=== PATIENT | male | born 1960 | race African-American/Black ===

== ENCOUNTER 2017-11-03 12:51 | Observation (INO) | payer OTHER ==
[~2017-11-03] VITALS: Ht 177.8 cm; Wt 129.3 kg
[~2017-11-03 12:51] MED LIST: LISINOPRIL10 MG PO; SERTRALINE HCL100 MG PO
[2017-11-03] MEDS ORDERED: ASPIRIN 81 MG CHEW TAB PO ONE (13:15)
[2017-11-03 13:30] LABS: BASOPHILS # (AUTO) 0.1 (0.0-0.1); BASOPHILS % 0.9 % (0.0-1.0); EOSINOPHILS # (AUTO) 0.4 (0.0-0.4); EOSINOPHILS % 6.1 % (0.0-6.0); HEMATOCRIT 43.2 % (38.2-49.6); HEMOGLOBIN 13.4 g/dL (14.0-18.0); LYMPHOCYTES # (AUTO) 2.6 (1.0-3.2); LYMPHOCYTES % 39.1 % (18.0-39.1); MEAN CORPUSCULAR VOLUME 83.7 fL (81-99); MONOCYTES # (AUTO) 0.6 (0.2-0.8); MONOCYTES % 9.2 % (4.4-11.3); NEUTROPHILS # (AUTO) 2.9 (2.1-6.9); NEUTROPHILS % 44.1 % (38.7-80.0); PLATELET COUNT 192 x10e3/uL (140-360); RED BLOOD COUNT 5.16 x10e6/uL (4.3-5.7); RED CELL DISTRIBUTION WIDTH 14.6 % (11.7-14.4)
--- NOTE | 2017-11-03 13:34 | Diagnostic Imaging Report ---
EXAMINATION: Chest, CHEST SINGLE (NOT PORTABLE) INDICATION: Chest pain COMPARISON: None FINDINGS: LINES: Left chest cardiac device with lead projecting over the expected region of the right ventricle. Heart: Normal cardiac silhouette. Vascular: The pulmonary vasculature is within normal limits. Atherosclerotic calcifications of the aortic arch. Mediastinum: No mediastinal, hilar, or axillary mass or lymphadenopathy. Lungs: No parenchymal mass. No focal consolidation. Left lung base atelectasis. Pleura: No pleural effusion. No pneumothorax. Bones: No acute osseous abnormality. Degenerative changes of the thoracic spine. Soft tissues: Normal. Impression: No acute radiographic abnormality. Signed by: Dr. Rohit Goodson M.D. on 11/03/2017 1:31 PM
[2017-11-03 13:48] LABS: ALANINE AMINOTRANSFERASE 33 IU/L (0-55); ALBUMIN 3.5 g/dL (3.5-5.0); ALBUMIN/GLOBULIN RATIO 0.8 (0.8-2.0); ALKALINE PHOSPHATASE 90 IU/L (40-150); ANION GAP 10.8 mmol/L (8-16); BLOOD UREA NITROGEN 9 mg/dL (7-26); BUN/CREATININE RATIO 9 (6-25); CALCIUM 9.1 mg/dL (8.4-10.2); CARBON DIOXIDE 35 mmol/L (22-29); CHLORIDE 98 mmol/L (98-107); CREATINE KINASE 137 IU/L (30-200); CREATININE, SERUM 1.03 mg/dL (0.72-1.25); EST GLOMERULAR FILTRATION RATE > 60 ML/MIN (60-); GLUCOSE 152 mg/dL (74-118); MAGNESIUM 1.9 MG/DL (1.3-2.1); POTASSIUM 3.8 mmol/L (3.5-5.1); SODIUM 140 mmol/L (136-145)
[2017-11-03] MEDS ORDERED: PANTOPRAZOLE SO40 MG PO (17:44)
[2017-11-03] MEDS ORDERED: FUROSEMIDE40 MG PO (17:44)
[2017-11-03] MEDS ORDERED: CHANTIX0.5 MG PO (17:44)
[2017-11-03] MEDS ORDERED: CLONIDINE HCL0.1 MG PO (17:44)
[2017-11-03] MEDS ORDERED: SENNA LAX8.6 MG PO (17:44)
[2017-11-03] MEDS ORDERED: ULTRAM 50MG50 MG PO (17:44)
[2017-11-03] MEDS ORDERED: ASPIRIN 81 MG CHEW TAB ONE (18:53)
[2017-11-03] MEDS ORDERED: ATORVASTATIN CA10 MG PO (19:02)
[2017-11-03] MEDS ORDERED: ASPIR 8181 MG (19:02)
[2017-11-03] MEDS ORDERED: MAGNESIUM OXID400 MG PO (19:02)
[2017-11-03] MEDS ORDERED: ENTRESTO PO (19:02)
[2017-11-03] MEDS ORDERED: BISACODYL5 MG PO (19:02)
[2017-11-03] MEDS ORDERED: NITRO-BID1 GM TD (19:02)
[2017-11-03] MEDS ORDERED: CARVEDILOL3.125 MG PO (19:02)
[2017-11-03] MEDS ORDERED: ELIQUIS PO (19:02)
[2017-11-03] MEDS ORDERED: ONDANSETRON HCL INJ 2 MG/ML VIAL IV PRN (19:15)
[2017-11-03] MEDS ORDERED: SODIUM CHLORIDE FLUSH 10 ML SYR INJ PRN (19:15)
[2017-11-03] MEDS ORDERED: CLONIDINE HCL 0.1 MG TAB PO PRN (19:15)
[2017-11-03] MEDS ORDERED: TRAMADOL HCL 50 MG TAB PO PRN (19:15)
[2017-11-03] MEDS: MORPHINE SULFATE 2 MG/ML SYR IV PRN (19:45)
[2017-11-03] MEDS ORDERED: VARENICLINE 1 MG TAB PO PRN (19:45)
[2017-11-03] MEDS: FAMOTIDINE 20 MG/2 ML VIAL IV SCH (19:45)
[2017-11-03] MEDS: SERTRALINE HCL 100 MG TAB PO SCH (21:55)
[2017-11-03] MEDS: ATORVASTATIN 10 MG TAB PO SCH (21:55)
[2017-11-03 23:33] LABS: CREATINE KINASE MB 0.8 ng/mL (0.00-5.00)
[2017-11-04] VITALS (7 sets, daily range): BP systolic 96–121; BP diastolic 67–94
[2017-11-04] MEDS: FAMOTIDINE 20 MG/2 ML VIAL IV SCH ×2 (08:30→21:31)
[2017-11-04 08:35] LABS: BASOPHILS # (AUTO) 0.1 (0.0-0.1); BASOPHILS % 1.3 % (0.0-1.0); EOSINOPHILS # (AUTO) 0.3 (0.0-0.4); EOSINOPHILS % 4.7 % (0.0-6.0); HEMATOCRIT 39.4 % (38.2-49.6); LYMPHOCYTES # (AUTO) 2.9 (1.0-3.2); LYMPHOCYTES % 40.9 % (18.0-39.1); MEAN CORPUSCULAR HEMOGLOBIN 25.9 pg (28-32); MEAN CORPUSCULAR HGB CONC 30.5 g/dL (31-35); MEAN CORPUSCULAR VOLUME 84.9 fL (81-99); MONOCYTES # (AUTO) 0.8 (0.2-0.8); MONOCYTES % 11.1 % (4.4-11.3); NEUTROPHILS # (AUTO) 2.9 (2.1-6.9); NEUTROPHILS % 40.5 % (38.7-80.0); PLATELET COUNT 153 x10e3/uL (140-360); RED BLOOD COUNT 4.64 x10e6/uL (4.3-5.7); RED CELL DISTRIBUTION WIDTH 14.7 % (11.7-14.4)
[2017-11-04] MEDS: ASPIRIN 81 MG ENTERIC COATED PO SCH (08:50)
[2017-11-04 09:02] LABS: ALANINE AMINOTRANSFERASE 30 IU/L (0-55); ALBUMIN 3.2 g/dL (3.5-5.0); ALBUMIN/GLOBULIN RATIO 0.9 (0.8-2.0); ALKALINE PHOSPHATASE 73 IU/L (40-150); ANION GAP 10.8 mmol/L (8-16); BLOOD UREA NITROGEN 11 mg/dL (7-26); BUN/CREATININE RATIO 10 (6-25); CARBON DIOXIDE 36 mmol/L (22-29); CHLORIDE 97 mmol/L (98-107); CHOL/HDL RATIO 3.4 (3.9-4.7); CHOLESTEROL 141 MD/DL (0-199); CREATININE, SERUM 1.09 mg/dL (0.72-1.25); EST GLOMERULAR FILTRATION RATE > 60 ML/MIN (60-); GLUCOSE 105 mg/dL (74-118); HDL CHOLESTEROL 42 MG/DL (40-60); LDL CHOLESTEROL 76 MG/DL (60-130); POTASSIUM 3.8 mmol/L (3.5-5.1); SODIUM 140 mmol/L (136-145); TRIGLYCERIDES 116 MG/DL (0-149)
[2017-11-04] MEDS: BISACODYL 5 MG TAB EC PO SCH (09:10)
[2017-11-04] MEDS: SENNOSIDES 8.6 MG TAB PO SCH (09:10)
[2017-11-04] MEDS: CARVEDILOL 3.125 MG TAB PO SCH ×2 (09:10→17:00)
[2017-11-04] MEDS: MAGNESIUM OXIDE 400 MG TAB PO SCH (09:10)
[2017-11-04] MEDS: APIXABAN 5 MG TABLET PO SCH ×2 (09:10→17:05)
[2017-11-04] MEDS: FUROSEMIDE 40 MG TAB PO SCH ×2 (09:10→17:15)
[2017-11-04] MEDS: LISINOPRIL 10 MG TAB PO SCH ×2 (09:10→17:00)
[2017-11-04] MEDS: NITROGLYCERIN 2% OINT 1 GM PKT TOP SCH ×3 (12:00→17:29)
[2017-11-04] MEDS: ATORVASTATIN 10 MG TAB PO SCH (21:31)
[2017-11-04] MEDS: SERTRALINE HCL 100 MG TAB PO SCH (21:31)
[2017-11-05] VITALS (7 sets, daily range): BP systolic 92–142; BP diastolic 55–86
--- NOTE | 2017-11-05 03:56 | History and Physical ---
PRIMARY CARE PHYSICIAN: Dr. 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 CHIEF COMPLAINT: Chest pain. HISTORY OF PRESENT ILLNESS: This is a 56-year-old man with a history of systolic congestive heart failure, status post AICD placement in September 2017, now developing substernal chest pain described as sharp and shooting to the left with associated dizziness. No shortness of breath. No nausea or vomiting. He admitted for further evaluation and management. PAST MEDICAL HISTORY: Diabetes mellitus, type 2, hypertension, bilateral upper extremity DVT in August 2017, and started on Eliquis, systolic congestive heart failure, status post AICD placement in September 2017. PAST SURGICAL HISTORY: Back surgery, cholecystectomy, AICD placement. ALLERGIES: PER ELECTRONIC MEDICAL RECORDS. FAMILY HISTORY/SOCIAL HISTORY: Patient is . No children. No alcohol, illicits or cigarettes. MEDICATIONS: Per electronic medical records. REVIEW OF SYSTEMS: Denies any shortness of breath. PHYSICAL EXAMINATION VITAL SIGNS: Have been reviewed. GENERAL: A tired-appearing man resting in bed. HEENT: Anicteric. CARDIOVASCULAR: Normal S1 and S2. He has a left-sided chest palpable cardiac device subcutaneously. LUNGS: Moderate breath sounds. ABDOMEN: Soft, nontender and nondistended. EXTREMITIES: No edema tenderness. SKIN: Dry. PSYCHIATRIC: Normal affect. LABS: Reviewed. MEDICATIONS: Reviewed. ASSESSMENT AND PLAN: A 56-year-old man with: 1. Chest pain: Cardiac enzymes negative times 3. His LDL is 76. His triglycerides are 116. His heart catheterization was in August 2017, which he states was negative. We can obtain a 2-D echocardiogram here, although the patient has recently had that as well, and had an automatic implanted cardioverter defibrillator placed in September 2017. Plan would be for him to follow up with his mechanical apprentice outpatient. In the meantime, will treat him medically with Lipitor, lisinopril, carvedilol, aspirin. His blood pressure is currently well controlled. Could this be a pulmonary embolism? Patient is on Eliquis, but he is complaining of sharp chest discomfort. Will obtain a D-dimer and determine if a computerized tomography scan is needed after that. 2. Diabetes mellitus, type 2: Obtain hemoglobin A1c and lipid panel. 3. Obesity: Caloric restriction needed. His body mass index is 39.3. 4. Hypertension: Continue beta mauricio and other medications. 5. Bilateral upper extremity deep venous thrombosis: Will continue apixaban. 6. Gastroesophageal reflux disease: Continue Pepcid. 7. Hypertension: Continue clonidine, carvedilol and lisinopril. 8. Hyperlipidemia: Continue Lipitor. 9. Constipation: Continue bowel regimen. 10. Cigarette abuse history: Continue Chantix. 11. Prophylaxis: Will use Lovenox and continue Pepcid. 12. Disposition: Monitor by telemetry. Possible discharge later today versus tomorrow. He needs to follow up with his mechanical apprentice outpatient for further management. He had a recent echocardiogram in late fall of 2016. Job#: [id number] ODIN
[2017-11-05] MEDS: NITROGLYCERIN 2% OINT 1 GM PKT TOP SCH ×4 (06:13→18:11)
[2017-11-05] MEDS: FAMOTIDINE 20 MG/2 ML VIAL IV SCH ×2 (07:55→20:33)
--- NOTE | 2017-11-05 08:20 | Consultation ---
DATE OF CONSULTATION: REQUESTING PHYSICIAN: Dr. Douglas REASON FOR CONSULTATION: Chest pain. HISTORY OF PRESENT ILLNESS: Mr. Tatum is a 56-year-old gentleman with past medical history as listed below. He reportedly started developing chest pain a couple of weeks back. Patient states the chest pain was constant all across his chest, nonradiating. He does get short of breath both at rest and with minimal exertion. He has a history of congestive heart failure and underwent an ICD placement a few weeks back at [facility]. He states he feels better today. REVIEW OF SYSTEMS CONSTITUTIONAL: Has some fatigue and weakness. HEENT: No headache, blurring of vision, seizures, syncope. CARDIOVASCULAR: Had chest pain. Has dyspnea. Has leg edema. No orthopnea or PND. RESPIRATORY: No cough, fever or expectoration. GI: No abdominal pain, vomiting, diarrhea. : No dysuria, frequency, incontinence. ALLERGIES: NO KNOWN DRUG ALLERGIES. MEDICATIONS: See list. PAST MEDICAL HISTORY 1. History of CHF/cardiomyopathy. 2. History of ICD placement. 3. History of hypertension. 4. History of diabetes mellitus. 5. History of hyperlipidemia. 6. History of DVT of both upper extremities. 7. History of having had a cardiac catheterization at [facility] and was told that he had no blockages. SOCIAL HISTORY: Does not smoke or drink or use drugs. FAMILY HISTORY: History of hypertension. PHYSICAL EXAMINATION GENERAL: Obese gentleman, alert and oriented, not in any obvious distress. VITALS: Heart rate is 78. Blood pressure 107/78. Respiratory rate 18. HEENT: Atraumatic. NECK: No JVD, bruit, thyromegaly, lymphadenopathy. CHEST: Decreased air entry at the bases. No adventitious sounds appreciated. ICD generator, left upper chest. CARDIOVASCULAR: First and second heart sounds heard. No murmurs, rubs or gallops appreciated. ABDOMEN: Obese, nontender. EXTREMITIES: 1 to 2+ edema. LABORATORY DATA: Sodium is 140, potassium 3.8, chloride 97, bicarb 36. BUN is 11 and creatinine 1.0. Glucose 105. Hemoglobin is 12.0, hematocrit 39.4, platelets 153, white count 7.1. EKG shows sinus rhythm at 82 beats per minute, rightward axis, intraventricular conduction delay, nonspecific ST-T changes. IMPRESSION 1. Chest pain. 2. Congestive heart failure. 3. History of deep venous thrombosis of upper extremities. 4. History of hypertension. 5. Obesity. 6. History of implantable cardioverter-defibrillator placement. PLAN 1. Follow serial cardiac enzymes. 2. Get records from [facility]. 3. Continue with aspirin, beta blockers, SAVANNA inhibitors, diuretics. 4. Patient is also on apixaban for his DVT. Can continue the same. 5. Plan to get echocardiogram. 6. Patient has been counseled on diet and salt restriction. 7. Further cardiac workup depending on clinical course. I discussed my impression and plan of management with the patient, and he understands. As always, I appreciate and thank you very much for your referrals. Job#: [id number] KACI
[2017-11-05] MEDS: CARVEDILOL 3.125 MG TAB PO SCH ×2 (09:00→17:48)
[2017-11-05] MEDS: LISINOPRIL 10 MG TAB PO SCH ×2 (09:00→17:48)
[2017-11-05] MEDS: ASPIRIN 81 MG ENTERIC COATED PO SCH (09:48)
[2017-11-05] MEDS: MAGNESIUM OXIDE 400 MG TAB PO SCH (09:49)
[2017-11-05] MEDS: SENNOSIDES 8.6 MG TAB PO SCH (09:49)
[2017-11-05] MEDS: FUROSEMIDE 40 MG TAB PO SCH ×2 (09:49→17:48)
[2017-11-05] MEDS: BISACODYL 5 MG TAB EC PO SCH (09:49)
[2017-11-05] MEDS: APIXABAN 5 MG TABLET PO SCH ×2 (09:49→17:48)
[2017-11-05] MEDS: ATORVASTATIN 10 MG TAB PO SCH (20:33)
[2017-11-05] MEDS: SERTRALINE HCL 100 MG TAB PO SCH (20:33)
[2017-11-05] MEDS: MORPHINE SULFATE 2 MG/ML SYR IV PRN (20:35)
[2017-11-06 00:19] VITALS: BP 111/64
[2017-11-06 05:47] VITALS: BP 149/75
[2017-11-06] MEDS: FAMOTIDINE 20 MG/2 ML VIAL IV SCH (06:33)
[2017-11-06] MEDS: NITROGLYCERIN 2% OINT 1 GM PKT TOP SCH ×3 (06:33→13:00)
[2017-11-06 06:49] LABS: BASOPHILS # (AUTO) 0.1 (0.0-0.1); BASOPHILS % 0.9 % (0.0-1.0); EOSINOPHILS # (AUTO) 0.3 (0.0-0.4); EOSINOPHILS % 4.5 % (0.0-6.0); HEMATOCRIT 38.4 % (38.2-49.6); HEMOGLOBIN 11.6 g/dL (14.0-18.0); LYMPHOCYTES % 43.8 % (18.0-39.1); MEAN CORPUSCULAR HEMOGLOBIN 25.7 pg (28-32); MEAN CORPUSCULAR HGB CONC 30.2 g/dL (31-35); MONOCYTES # (AUTO) 0.6 (0.2-0.8); MONOCYTES % 9.5 % (4.4-11.3); NEUTROPHILS # (AUTO) 2.8 (2.1-6.9); NEUTROPHILS % 40.9 % (38.7-80.0); PLATELET COUNT 124 x10e3/uL (140-360); RED BLOOD COUNT 4.52 x10e6/uL (4.3-5.7); RED CELL DISTRIBUTION WIDTH 14.5 % (11.7-14.4)
[2017-11-06 07:18] LABS: ANION GAP 11.8 mmol/L (8-16); BLOOD UREA NITROGEN 12 mg/dL (7-26); BUN/CREATININE RATIO 11 (6-25); CALCIUM 8.9 mg/dL (8.4-10.2); CARBON DIOXIDE 35 mmol/L (22-29); CHLORIDE 98 mmol/L (98-107); CREATININE, SERUM 1.12 mg/dL (0.72-1.25); EST GLOMERULAR FILTRATION RATE > 60 ML/MIN (60-); GLUCOSE 95 mg/dL (74-118); POTASSIUM 3.8 mmol/L (3.5-5.1); SODIUM 141 mmol/L (136-145)
[2017-11-06] MEDS: SENNOSIDES 8.6 MG TAB PO SCH (09:39)
[2017-11-06] MEDS: BISACODYL 5 MG TAB EC PO SCH (09:39)
[2017-11-06] MEDS: CARVEDILOL 3.125 MG TAB PO SCH ×2 (09:39→17:24)
[2017-11-06] MEDS: FUROSEMIDE 40 MG TAB PO SCH ×2 (09:39→17:24)
[2017-11-06] MEDS: MAGNESIUM OXIDE 400 MG TAB PO SCH (09:39)
[2017-11-06] MEDS: APIXABAN 5 MG TABLET PO SCH ×2 (09:39→17:24)
[2017-11-06] MEDS: LISINOPRIL 10 MG TAB PO SCH ×2 (09:39→17:25)
[2017-11-06] MEDS: ASPIRIN 81 MG ENTERIC COATED PO SCH (09:39)
[2017-11-06 14:29] VITALS: BP 159/97
--- NOTE | 2017-11-06 14:46 | Diagnostic Imaging Report ---
Ventilation/perfusion lung scan Clinical Information: SOB x 2 months Comparison: Chest radiograph 11/03/2017 Discussion: Xenon-133 gas 20 mCi was administered via inhalation. Dynamic images of the lungs in the posterior projection were obtained through single breath, equilibrium, and washout phases. A nonsegmental ventilation abnormality is seen in the LLL. There are no segmental ventilatory defects. Washout of tracer is diffusely delayed with air trapping in the left lung base. Perfusion images of the lungs were obtained in multiple projections following intravenous administration of approximately 6 mCi of Tc-99m MAA. A nonsegmental perfusion abnormality is seen in the LLL. Distribution of tracer activity otherwise is minimally irregular throughout the lungs. The contours of the lungs are well demarcated. There are no segmental perfusion defects of any size. The perfusion image in the posterior projection is well-matched to the ventilation images. The cardiomediastinal silhouette is unremarkable. Impression: 1. Scan findings represent a LOW probability for acute pulmonary embolic disease based on the PIOPED II criteria. 2. Large matched nonsegmental ventilation and perfusion abnormality in the left lower lobe suspect for parenchymal lung disease versus regional emphysema. CT chest may be warranted. Signed by: Dr. Piedad Cage M.D. on 11/06/2017 2:42 PM
[2017-11-06 15:52] VITALS: BP 142/81
--- NOTE | 2017-11-07 12:11 | Discharge Summary ---
ADMISSION DIAGNOSES 1. Chest pain. 2. Diabetes, type 2. 3. Obesity. 4. Hypertension. 5. Bilateral upper extremity deep venous thrombosis history. 6. Gastroesophageal reflux disease. 7. Hypertension. 8. Hyperlipidemia. 9. Constipation. 10. Cigarette abuse history. DISCHARGE DIAGNOSES 1. Chest pain. 2. Diabetes, type 2. 3. Obesity. 4. Hypertension. 5. Bilateral upper extremity deep venous thrombosis history. 6. Gastroesophageal reflux disease. 7. Hypertension. 8. Hyperlipidemia. 9. Constipation. 10. Cigarette abuse history. 11. Ruled out pulmonary embolism and myocardial infarction. HISTORY: Patient has a history of type 2 diabetes, hypertension, bilateral upper extremity DVT in August of 2017 when he was started on Eliquis, systolic heart failure, status post AICD placement in September 2017. Surgical history of back surgery, cholecystectomy, AICD placement. HOSPITAL COURSE: A 56-year-old male presented with history of CHF, status post AICD placement in September, now developing substernal chest pain described as sharp and shooting to the left with associated dizziness. He denies shortness of breath, nausea and vomiting. On admission, his enzymes were negative times 3. LDL 76, triglycerides 116. Heart cath in August 2017, which he states was negative. Echo was found to have an EF of 25% to 30%, severe left ventricular hypertrophy, and trace pulmonic regurg. Cardiology consulted who recommended to continue aspirin, beta blockers, SAVANNA inhibitors, diuretics, and anticoags for DVT. Patient counseled on diet and salt restriction. D-dimer was found to be elevated. V/Q scan was done, which was negative per cardiology. Per cardiology, the patient is okay to discharge home with no interventions needed. At the time of discharge, sodium 141, potassium 3.8, creatinine 1.12, BUN 12, GFR of over 60. Last troponin of 0.046. WBC 6.73, hemoglobin 11.6, hematocrit 38.4. Chest x-ray on admission showed no abnormality. Patient will discharge home and follow up with cardiology in 1-2 weeks. Patient already has 4 L of oxygen at home, and lives at home with his . Patient will continue on his current home medicines. DICTATED BY LEIDY BEDOLLA, JACKHAMMER SPLITTER OPERATOR GENARO AMADO MD Job#: [id number] [place]
== END 2017-11-06 18:21 | disposition home or self-care (01) ==
LOC: ER 12:51 → ERHOLD 20:46 → MED/SURG3 23:07
PROVIDERS: ADMIT Internal Medicine; ATTEND Internal Medicine
DX: R07.9 Chest pain, unspecified (principal); E11.9 Type 2 diabetes mellitus without complications; Z86.718 Personal history of other venous thrombosis and embolism; Z79.01 Long term (current) use of anticoagulants; I11.0 Hypertensive heart disease with heart failure; I50.20 Unspecified systolic (congestive) heart failure; Z95.810 Presence of automatic (implantable) cardiac defibrillator; E66.9 Obesity, unspecified; K21.9 Gastro-esophageal reflux disease without esophagitis; E78.5 Hyperlipidemia, unspecified; K59.00 Constipation, unspecified; Z87.891 Personal history of nicotine dependence
CPT/HCPCS: 36415 ×4; 71010; 78582; 80048; 80053 ×2; 80061; 82550 ×2; 82553 ×2; 82948 ×3; 83036; 83735; 83880; 84484 ×3; 85025 ×3; 85379; 93005 ×2; 93306; 99284; A9540; A9558; G0378 ×4; J2270 ×2; J2405; 71045

== ENCOUNTER 2018-02-03 05:37 | Emergency (ER) | payer OTHER ==
[~2018-02-03] VITALS: Ht 177.8 cm; Wt 129.3 kg
[~2018-02-03 05:37] MED LIST changes: +ASPIR 8181 MG; +ATORVASTATIN CA10 MG PO; +BISACODYL5 MG PO; +CARVEDILOL3.125 MG PO; +CHANTIX0.5 MG PO; +CLONIDINE HCL0.1 MG PO; +ELIQUIS PO; +ENTRESTO PO; +FUROSEMIDE40 MG PO; +MAGNESIUM OXID400 MG PO; +NITRO-BID1 GM TD; +PANTOPRAZOLE SO40 MG PO; +SENNA LAX8.6 MG PO; +ULTRAM 50MG50 MG PO
--- OUTSIDE RECORDS SUMMARY | 2018-02-03 05:41 | XMS REPORT | Clinical Summary ---
Author Author [facility] [employer] [facility] [employer] Address Unknown Phone Unavailable Care Team Providers Care Supervisor [facility] [employer] Name Role Phone Cristino Bryant DO PCP Allergies No Known Allergies Current Medications Prescription Sig. Disp. Refills Start End Date Status Date aspirin (ECOTRIN) 81 MG Take 81 mg by mouth Active enteric coated tablet daily. atorvastatin (LIPITOR) 10 Take 10 mg by mouth Active MG tablet nightly. escitalopram (LEXAPRO) 10 Take 10 mg by mouth 2 Active MG tablet (two) times a day. QUEtiapine (SEROquel) 25 Take 25 mg by mouth Active MG tablet nightly. risperiDONE (RisperDAL) 1 Take 1 mg by mouth 2 Active MG tablet (two) times a day. varenicline (CHANTIX) 0.5 Take 0.5 mg by mouth Active MG tablet daily. Take with full glass of water. HYDROcodone-acetaminophen Take 1 tablet by mouth Active (NORCO) 10-325 mg per every 6 (six) hours as tablet needed for moderate pain. apixaban (ELIQUIS) 5 mg Take 5 mg by mouth 2 Active tablet (two) times a day. furosemide (LASIX) 40 mg Take 1 tablet (40 mg 60 tablet 10/19/20 10/19/20 Active tablet total) by mouth 2 (two) 17 18 times a day. magnesium oxide (MAG-OX) Take 1 tablet (400 mg 30 tablet 10/19/20 10/19/20 Active 400 mg tablet total) by mouth daily. 17 18 aspirin (ECOTRIN) 81 MG Take 81 mg by mouth 07/31/20 Discontin enteric coated tablet daily. 17 ued escitalopram (LEXAPRO) 10 Take 10 mg by mouth 2 07/31/20 Discontin MG tablet (two) times a day. 17 ued risperiDONE (RisperDAL) 1 Take 1 mg by mouth 2 07/31/20 Discontin MG tablet (two) times a day. 17 ued clonAZEPAM (KlonoPIN) 0.5 Take 0.5 mg by mouth 2 03/10/20 Discontin MG tablet (two) times a day. 17 ued isosorbide dinitrate Take 40 mg by mouth 3 05/07/20 Discontin (ISOCHRON) 40 mg CR (three) times a day. 17 ued tablet dextran 70-hypromellose Administer 2 drops to 1 mL 0 01/25/20 (ARTIFICIAL TEARS) both eyes 4 (four) times 17 17 0.1-0.3 % drops a day for 30 days. lisinopril (ZESTRIL) 2.5 Take 1 tablet (2.5 mg 30 tablet 0 01/25/20 02/24/20 mg tablet total) by mouth daily for 17 17 30 days. atorvastatin (LIPITOR) 10 Take 1 tablet (10 mg 30 tablet 0 01/25/20 02/24/20 MG tablet total) by mouth daily for 17 17 30 days. metoprolol succinate XL Take 0.5 tablets (12.5 mg 15 tablet 0 02/24/20 (TOPROL-XL) 25 mg 24 hr total) by mouth daily for 17 17 tablet 30 days. spironolactone Take 1 tablet (25 mg 30 tablet 0 01/25/20 02/24/20 (ALDACTONE) 25 MG tablet total) by mouth daily for 17 17 30 days. nitroglycerin (NITRODUR) Place 1 patch on the skin 04/15/20 Discontin 0.1 mg/hr daily. 17 ued furosemide (LASIX) 40 mg Take 1 tablet (40 mg 30 tablet 0 02/02/20 03/03/20 tablet total) by mouth daily for 17 17 30 days. hydrALAZINE (APRESOLINE) Take 1 tablet (50 mg 90 tablet 0 02/02/20 03/03/20 50 MG tablet total) by mouth every 8 17 17 (eight) hours for 30 days. potassium chloride Take 2 capsules (20 mEq 60 capsule 0 02/02/2004/17 (MICRO-K) 10 MEQ CR total) by mouth daily for 17 17 capsule 30 days. predniSONE (DELTASONE) 20 Take 1 tablet (20 mg 14 tablet 0 02/02/20 02/16/20 mg tablet total) by mouth daily for 17 17 14 days. QUEtiapine (SEROquel) 200 Take 0.5 tablets (100 mg 15 tablet 0 03/03/20 MG tablet total) by mouth nightly 17 17 for 30 days. gabapentin (NEURONTIN) Take 1 capsule (300 mg 90 capsule 2 02/02/20 03/03/20 300 mg capsule total) by mouth 3 (three) 17 17 times a day for 30 days. clonIDINE (CATAPRES) 0.1 Take 0.1 mg by mouth as 04/15/20 Discontin MG tablet needed for high blood 17 ued pressure. carvedilol (COREG) 12.5 Take 12.5 mg by mouth 2 07/21/20 Discontin MG tablet (two) times a day with 17 ued meals. furosemide (LASIX) 40 mg Take 40 mg by mouth 03/10/20 Discontin tablet daily. 17 ued potassium chloride Take 10 mEq by mouth 07/31/20 Discontin (K-DUR,KLOR-CON) 10 MEQ daily. 17 ued CR tablet QUEtiapine (SEROquel) 100 Take 100 mg by mouth 03/10/20 Discontin MG tablet nightly. 17 ued hydrALAZINE (APRESOLINE) Take 50 mg by mouth 3 03/10/20 Discontin 50 MG tablet (three) times a day. 17 ued atorvastatin (LIPITOR) 10 Take 10 mg by mouth 07/31/20 Discontin MG tablet daily. 17 ued gabapentin (NEURONTIN) Take 600 mg by mouth 3 03/10/20 Discontin 600 mg tablet (three) times a day. 17 ued spironolactone Take 25 mg by mouth 05/07/20 Discontin (ALDACTONE) 25 MG tablet daily. 17 ued glimepiride (AMARYL) 1 MG Take 1 tablet (1 mg 30 tablet 0 03/10/20 04/09/20 tablet total) by mouth daily 17 17 with breakfast for 30 days. hydrALAZINE (APRESOLINE) Take 3 tablets (75 mg 270 tablet 0 03/10/20 04/09/20 25 MG tablet total) by mouth 3 (three) 17 17 times a day for 30 days. QUEtiapine (SEROquel) 25 Take 1 tablet (25 mg 30 tablet 0 03/10/20 04/09/20 MG tablet total) by mouth nightly 17 17 for 30 days. furosemide (LASIX) 40 mg Take 1 tablet (40 mg 60 tablet 0 03/10/20 04/09/20 tablet total) by mouth 2 (two) 17 17 times a day for 30 days. cephalexin (KEFLEX) 500 Take 500 mg by mouth 4 04/11/20 04/21/20 MG capsule (four) times a day. 17 17 varenicline (CHANTIX) 0.5 Take 0.5 mg by mouth 07/31/20 Discontin MG tablet daily. Take with full 17 ued glass of water. QUEtiapine (SEROquel) 25 Take 25 mg by mouth 07/31/20 Discontin MG tablet nightly. 17 ued clonIDINE (CATAPRES) 0.1 Take 1 tablet (0.1 mg 30 tablet 0 04/17/20 05/17/20 MG tablet total) by mouth as needed 17 17 for high blood pressure (if BP >160/) for up to 30 days. hydrALAZINE (APRESOLINE) Take 1 tablet (50 mg 90 tablet 0 04/17/20 05/07/20 Discontin 50 MG tablet total) by mouth every 8 17 17 ued (eight) hours for 30 days. nitroglycerin (NITRODUR) Place 1 patch (0.1 mg 30 patch 0 04/17/20 05/17/20 0.1 mg/hr total) on the skin daily 17 17 for 30 days. B complex-vitamin C-folic Take 1 tablet by mouth 30 tablet 0 04/17/20 05/17/20 acid (FOLBEE PLUS 5 MG) 5 daily for 30 days. 17 17 mg tablet per tablet hydrALAZINE (APRESOLINE) Take 3 tablets (75 mg 270 tablet 0 05/07/20 06/06/20 25 MG tablet total) by mouth every 8 17 17 (eight) hours for 30 days. spironolactone Take 1 tablet (25 mg 30 tablet 0 05/07/20 06/06/20 (ALDACTONE) 25 MG tablet total) by mouth daily for 17 17 30 days. isosorbide dinitrate Take 1 tablet (40 mg 90 tablet 0 05/07/2006/06 (ISOCHRON) 40 mg CR total) by mouth 3 (three) 17 17 tablet times a day for 30 days. furosemide (LASIX) 40 mg Take 1 tablet (40 mg 19 tablet 0 05/09/20 05/28/20 tablet total) by mouth daily for 17 17 19 days. CONTINUE UNTIL YOU SEE DR. NAVA IN THE OFFICE NEXT WEEK carvedilol (COREG) 6.25 Take 1 tablet (6.25 mg 60 tablet 0 07/20/20 07/31/20 Discontin MG tablet total) by mouth 2 (two) 17 17 ued times a day for 30 days. furosemide (LASIX) 40 mg Take 1 tablet (40 mg 30 tablet 0 07/20/20 07/31/20 Discontin tablet total) by mouth daily for 17 17 ued 30 days. acetaminophen-codeine Take 1 tablet by mouth 20 tablet 0 07/20/20 Discontin (TYLENOL WITH CODEINE #3) every 6 (six) hours as 17 17 ued 300-30 mg per tablet needed for moderate pain for up to 10 days. apixaban (ELIQUIS) 2.5 mg Take 1 tablet (2.5 mg 60 tablet 0 07/21/20 07/31/20 Discontin tablet total) by mouth 2 (two) 17 17 ued times a day for 30 days. apixaban (ELIQUIS) 2.5 mg Take 1 tablet (2.5 mg 60 tablet 0 07/21/20 07/31/20 Discontin tablet total) by mouth 2 (two) 17 17 ued times a day for 30 days. carvedilol (COREG) 6.25 Take 6.25 mg by mouth 2 09/05/20 Discontin MG tablet (two) times a day with 17 ued meals. furosemide (LASIX) 40 mg Take 40 mg by mouth 09/05/20 Discontin tablet daily. 17 ued potassium chloride Take 10 mEq by mouth 08/09/20 Discontin (MICRO-K) 10 MEQ CR daily. 17 ued capsule glimepiride (AMARYL) 1 MG Take 1 tablet (1 mg 30 tablet 0 08/09/20 09/08/20 tablet total) by mouth daily 17 with breakfast for 30 days. hydrALAZINE (APRESOLINE) Take 1 tablet (25 mg 90 tablet 0 08/09/20 09/05/20 Discontin 25 MG tablet total) by mouth every 8 17 ued (eight) hours for 30 days. potassium chloride Take 2 capsules (20 mEq 120 capsule 0 08/09/20 Discontin (MICRO-K) 10 MEQ CR total) by mouth 2 (two) 17 ued capsule times a day for 30 days. pantoprazole (PROTONIX) Take 1 tablet (40 mg 30 tablet 0 08/09/20 40 MG EC tablet total) by mouth daily for 17 30 days. carvedilol (COREG) 12.5 Take 1 tablet (12.5 mg 60 tablet 0 09/05/20 10/15/20 Discontin MG tablet total) by mouth 2 (two) 17 17 ued times a day with meals for 30 days. sacubitril-valsartan Take 1 tablet by mouth 2 60 tablet 0 09/05/20 10/15/20 Discontin (ENTRESTO) 24-26 mg (two) times a day for 30 17 17 ued tablet per tablet days. hydrALAZINE (APRESOLINE) Take 3 tablets (75 mg 270 tablet 0 09/05/20 10/15/20 Discontin 25 MG tablet total) by mouth every 8 ued (eight) hours for 30 days. furosemide (LASIX) 40 mg Take 1 tablet (40 mg 60 tablet 0 09/05/20 10/15/20 Discontin tablet total) by mouth 2 (two) 17 ued times a day for 30 days. potassium chloride Take 3 capsules (30 mEq 180 capsule 0 09/05/20 Discontin (MICRO-K) 10 MEQ CR total) by mouth 2 (two) 17 ued capsule times a day for 30 days. carvedilol (COREG) 6.25 Take 1 tablet (6.25 mg 60 tablet 3 10/15/20 11/14/19 MG tablet total) by mouth 2 (two) 17 18 times a day with meals for 30 days. traMADol (ULTRAM) 50 mg Take 1 tablet (50 mg 60 tablet 0 10/15/20 tablet total) by mouth every 6 17 18 (six) hours as needed for severe pain for up to 60 doses. sacubitril-valsartan Take 1 tablet by mouth 2 60 tablet 0 10/15/20 10/19/20 Discontin (ENTRESTO) 24-26 mg (two) times a day for 30 17 17 ued tablet per tablet days. hydrALAZINE (APRESOLINE) Take 3 tablets (75 mg 270 tablet 0 10/15/20 11/14/19 25 MG tablet total) by mouth every 8 17 18 (eight) hours for 30 days. insulin GLARGINE (LANTUS) Inject 14 Units under the 4.2 mL 0 10/16/20 11/15/19 100 unit/mL injection skin daily before (vial) breakfast for 30 days. bisacodyl (DULCOLAX) 5 mg Take 2 tablets (10 mg 30 tablet 0 10/15/20 11/14/19 EC tablet total) by mouth daily as 17 18 needed for constipation for up to 30 days. polyethylene glycol Take 17 g by mouth daily 30 packet 0 10/15/20 (MIRALAX) 17 gram packet for 30 days. 17 18 senna (SENOKOT) 8.6 mg Take 1 tablet by mouth 30 tablet 0 10/16/20 11/15/19 tablet daily for 30 days. 17 18 pantoprazole (PROTONIX) Take 1 tablet (40 mg 30 tablet 0 10/16/20 40 MG EC tablet total) by mouth daily for 17 18 30 days. lidocaine (LIDODERM) 5 % Place 1 patch on the skin 30 patch 0 11/14/19 daily for 30 days. Remove 17 18 & Discard patch within 12 hours or as directed by sacubitril-valsartan Take 1 tablet by mouth 2 30 tablet 0 10/19/20 10/19/20 Discontin (ENTRESTO) 49-51 mg (two) times a day. 17 17 ued tablet per tablet sacubitril-valsartan Take 1 tablet by mouth 2 60 tablet 0 10/19/20 11/18/19 (ENTRESTO) 24-26 mg (two) times a day for 30 17 18 tablet per tablet days. Active Problems Problem Noted Date Sleep-disordered breathing 10/15/2017 Respiratory failure 10/02/2017 Acute respiratory failure with hypoxia and hypercapnia 09/30/2017 HTN (hypertension), malignant 09/30/2017 Non compliance w medication regimen 09/30/2017 Heart failure 09/02/2017 Acute on chronic congestive heart failure 08/30/2017 VT (ventricular tachycardia) Nonsustained 08/09/2017 Hypertension, uncontrolled 07/31/2017 Acute deep vein thrombosis (DVT) of brachial vein of both upper extremities 07/21/2017 Acute on chronic combined systolic and diastolic congestive heart failure, 04/15/2017 NYHA class 4 CAD (coronary artery disease) 03/21/2017 Type 2 diabetes mellitus 03/21/2017 Anemia of chronic disease 03/21/2017 Chronic kidney disease, stage II (mild) 03/21/2017 Cerebrovascular accident (CVA) 01/22/2017 Acute exacerbation of CHF (congestive heart failure) 12/18/2016 Hypertension 2016 Hyperlipidemia 2016 Schizophrenia 2016 Hep C w/o coma, chronic 2016 Former smoker 2016 Acute on chronic systolic (congestive) heart failure 12/02/2016 Transient cerebral ischemia 12/01/2016 Resolved Problems Problem Noted Date Resolved Date Acute cholecystitis 07/12/2017 07/20/2017 SOB (shortness of breath) 05/04/2017 05/07/2017 SIRS (systemic inflammatory response syndrome) 03/21/2017 09/30/2017 Pneumonia 03/21/2017 09/30/2017 VIVI (acute kidney injury) 2016 04/17/2017 Chest pain 2016 09/30/2017 Encounters Date Type Specialty Care Team Description 10/19/2017 Office Visit Cardiology Nikole Woo NP Acute on chronic systolic congestive heart failure (Primary Dx) 10/19/2017 Hospital Transplant Holland Sanders MD Chronic systolic heart Encounter failure; Acute on chronic combined systolic and diastolic heart failure 10/19/2017 Documentation Pulmonology Ladarius Ramirez MD 10/16/2017 Telephone Cardiology Umesh Godinez RN Appointment 10/04/2017 Orders Only Procedural Cardiology Amarilis Ascencio 10/03/2017 Orders Only Cardiology Umesh Godinez RN Acute on chronic combined systolic and diastolic heart failure (Primary Dx) 10/03/2017 Anesthesia Procedural Cardiology Bia Arroyo CRNA Event 10/03/2017 Procedure Pass Procedural Cardiology 10/03/2017 Surgery Procedural Cardiology Abraham Barreto Jr., MD Ep aicd implant single dual bi vent [[id number] (CPT )] 10/03/2017 Procedure Pass Procedural Cardiology 10/03/2017 Procedure Pass Procedural Cardiology 09/30/2017 Orders Only Transplant Siddhartha Summers RN Chronic systolic heart failure (Primary Dx) 09/29/2017 [facility] Cardiology Jacek Fuentes, Acute on chronic combined - Encounter DO systolic and diastolic 10/15/2017 Gina Ness PA congestive heart failure, Marcos Pride MD NYHA class 4 (Primary Sudeep Maier O. Sr., Dx); Acute on chronic systolic congestive heart failure; SOB (shortness of breath); Other chest pain; Former smoker; Essential hypertension; Mixed hyperlipidemia; Undifferentiated schizophrenia; Coronary artery disease involving red cliff coronary artery of red cliff heart without angina pectoris 08/30/2017 [facility] Cardiology Wilber Quiñones MD Acute on chronic - Encounter Marcos Pride MD congestive heart failure, 09/05/2017 unspecified congestive heart failure type (Primary Dx) 07/31/2017 [facility] Neurology Neil Patel Hypertension, - Encounter MD Harlan uncontrolled (Primary 08/09/2017 Marcos Pride MD Dx); Chest pain, unspecified type; Congestive heart failure, unspecified congestive heart failure chronicity, unspecified congestive heart failure type; Other hyperlipidemia; Type 2 diabetes mellitus with complication, without long-term current use of insulin 07/17/2017 Anesthesia General Surgery Yoni Padilla MD Event 07/17/2017 Procedure Pass General Surgery 07/17/2017 Surgery General Surgery Hunter Sandoval MD CHOLECYSTECTOMY, LAPAROSCOPIC 07/13/2017 Procedure Pass General Surgery 07/12/2017 [facility] General Surgery Cha Ibarra MD Acute cholecystitis - Encounter Marcos Pride MD (Primary Dx); 07/21/2017 Generalized abdominal pain; Nausea and vomiting, intractability of vomiting not specified, unspecified vomiting type; Chest pain, unspecified type; SOB (shortness of breath); Essential hypertension; Other schizophrenia; Acute on chronic systolic congestive heart failure 05/04/2017 Emergency General Internal Medicine Saji Guillen DO SOB (shortness of breath) - Marcos Pride MD (Primary Dx) 05/07/2017 05/03/2017 Hospital Radiology GiovanniMarcos Benedict Shortness of breath Encounter MD Antoni 05/03/2017 Transcribe Access Marcos Neumann Shortness of breath Orders MD Antoni (Primary Dx) 04/15/2017 Hospital Cardiology Emmanuel Neely DO Acute on chronic - Encounter Marcos Pride MD congestive heart failure, 04/17/2017 unspecified congestive heart failure type (Primary Dx); Chronic obstructive pulmonary disease, unspecified COPD type; Malignant hypertension; Hyperlipidemia, unspecified hyperlipidemia type 03/05/2017 [facility] Cardiology Morena CaputoRoula Celeste MD Acute on chronic systolic - Encounter Marcos Pride MD congestive heart failure 03/10/2017 Ninfa Curtis MD (Primary Dx); Chest pain, unspecified type; Essential hypertension; Smoker 02/06/2017 Telephone Cardiology Dena Neal after 02/02/2017 Immunizations Name Dates Previously Given Next Due FLUCELVAX QUAD PF (0.5mL 08/05/2017 syringe) Influenza Trivalent 12/27/2016 Pneumococcal Conjugate 12/27/2016 Family History Medical History Relation Name Comments Heart attack Brother Heart attack Mother Kidney disease Mother Stroke Mother Relation Name Status Comments Brother Mother Social History Tobacco Use Types Packs/Day Years Used Date Current Some Day Smoker Cigarettes 0.5 20 Smokeless Tobacco: Never Used Alcohol Use Drinks/Week oz/Week Comments No Previous alcoholic, quit 4 years ago Sex Assigned at Date Recorded Not on file Last Filed Vital Signs Vital Sign Reading Time Taken Blood Pressure 156/93 10/19/2017 9:19 AM [employer]INE SUPER[employer] Pulse 85 10/19/2017 9:19 AM MINE SUPERVISOR Temperature 35.8 C (96.4 F) 10/19/2017 9:19 AM MINE SUPERVISOR Respiratory Rate 16 10/15/2017 3:44 PM MINE SUPERVISOR Oxygen Saturation 93% 10/15/2017 3:44 PM MINE SUPERVISOR Inhaled Oxygen - - Concentration Weight 136 kg (299 lb 12.8 oz) 10/19/2017 9:19 AM MINE SUPERVISOR Height 177.8 cm (5' 10") 10/19/2017 9:19 AM MINE SUPERVISOR Body Mass Index 43.02 10/19/2017 9:19 AM MINE SUPERVISOR Plan of Treatment Health Maintenance Due Date Last Done Comments FOOT EXAM 1971 OPHTHALMOLOGY EXAM 1971 COLONOSCOPY 2011 INFLUENZA VACCINE 05/29/2018 08/05/2017, 12/27/2016 Implants Implanted Type Area Aircraft Layout Worker Device Expiration Model / Identifier Date Serial / Lot [employer] Df4 Tachy Lead - Cardiac N/A: N/A [employer] 11/29/2021 [id number] / [id number] Pacing [employer]- CRM / Implanted: Qty: 1 on 10/03/2017 by Leads or [id number] Abraham Barreto Jr., MD Electrodes or Accessorie s Dynagen El Icd Df4 Vr Defibrilla [employer] D150 / Implanted: Qty: 1 on 10/03/2017 by tor [employer] [id number] / Abraham Barreto Jr., MD Devices [id number] Pins In Lumbar L4-L5 Procedures Procedure Name Priority Date/Time Associated Diagnosis Comments ECHOCARDIOGRAM 2D LIMITED STAT 10/04/2017 Results for this 4:25 PM MINE SUPERVISOR procedure are in the results section. EP AICD IMPLANT SINGLE Routine 10/03/2017 Results for this DUAL BI VENT 11:27 AM MINE SUPERVISOR procedure are in the results section. ECHOCARDIOGRAM 2D Routine 10/02/2017 Results for this COMPLETE W MMODE SPECTRAL 4:21 PM MINE SUPERVISOR procedure are in the COLOR DOPPLER (52721) results section. MD CRITICAL CARE, E/M Routine 09/30/2017 Results for this 30-74 MINUTES 12:25 AM MINE SUPERVISOR procedure are in the results section. MD CRITICAL CARE, E/M Routine 08/31/2017 Results for this 30-74 MINUTES 10:46 AM CDT procedure are in the results section. CONSULT CARDIAC REHAB Routine 08/08/2017 PHASE 1 12:05 PM CDT MD CRITICAL CARE, E/M Routine 08/01/2017 Results for this 30-74 MINUTES 8:54 AM CDT procedure are in the results section. MD AN ELECTIVE Routine 07/17/2017 ENDOTRACHEAL AIRWAY 8:36 AM CDT Procedure Note - Lizzy Salazar, INTERNET SALES CONSULTANT - 07/17/2017 8:14 AM CDT Airway Date/Time: 07/17/2017 7:53 AM Performed by: LIZZY SALAZAR Authorized by: LIZZY SALAZAR Location: OR Urgency: Elective Difficult Airway: Yes Anesthesio logist: TAMIKA ROLON Resident/C RNA: LIZZY SALAZAR Performed by: resident/C RNA Preoxygena yanci with 100% O2: Yes C-spine Precaution s Maintained Throughout : Yes Mask Ventilatio n: Easy mask Final Airway Type: Endotrache al airway Final Endotrache al Airway: ETT Cuffed: Yes Technique Used: Direct laryngosco py Devices/Me thods Used in Placement: Intubatin g stylet Insertion Site: Oral Blade Type: Reilly Laryngosco pe Blade/Vide olaryngosc ope Blade Size: 2 ETT Size (mm): 8.0 Cuff at minimum occlusion pressure: Yes Measured from: Gums ETT to Gums (cm): 22 Placement Verified by: CO2 detection Laryngosc opic view: Grade IIa - partial view of glottis Number of Attempts at Approach: 1 CHOLECYSTECTOMY, 07/17/2017 ACUTE CHOLECYSTITIS LAPAROSCOPIC 7:30 AM CDT CV STRESS TEST NUCLEAR Routine 05/05/2017 Results for this CARDIO 3:06 PM CDT procedure are in the results section. after 02/02/2017 Results * Estimated GFR (10/19/2017 10:00 AM) Only the most recent of 62 results within the time period is included. Component Value Ref Range GFR Non Af Amer 69 mL/min/1.73 m2 GFR Af Amer 84 mL/min/1.73 m2 Comment: Chronic kidney disease: <60 mL/min/1.73m2 Kidney failure: <15 mL/min/1.73m2 The estimated GFR is calculated from the IDMS-traceable Modification of Diet in Renal Disease Equation. The accuracy of the calculation is poor when the creatinine is normal. Calculated values >90 mL/min/1.73m2 are not reported. This equation has not been validated in children (<18 years), women, the elderly (>70 years), or ethnic groups other than Caucasians and Americans. Specimen Performing Laboratory Plasma specimen [facility] DEPARTMENT OF PATHOLOGY AND GENOMIC MEDICINE [address] [place] [address] * B natriuretic peptide (10/19/2017 10:00 AM) Only the most recent of 21 results within the time period is included. Component Value Ref Range BNP 1,574 (H) 0 - 100 pg/mL Specimen Performing Laboratory Blood [facility] DEPARTMENT OF PATHOLOGY AND GENOMIC MEDICINE [address] [place] [id number] * Magnesium level (10/19/2017 10:00 AM) Only the most recent of 27 results within the time period is included. Component Value Ref Range Magnesium 1.8 1.6 - 2.6 mg/dL Specimen Performing Laboratory Plasma specimen [facility] DEPARTMENT OF PATHOLOGY AND [address] [address] * Basic metabolic panel (10/19/2017 10:00 AM) Only the most recent of 48 results within the time period is included. Component Value Ref Range Sodium 142 135 - 148 mEq/L Potassium 4.0 3.5 - 5.0 mEq/L Chloride 98 98 - 112 mEq/L CO2 34 (H) 24 - 31 mEq/L Anion gap 10 7 - 15 mEq/L Comment: Starting from January , anion gap calculation no longer incorporates potassium. Please note the change. BUN 6 6 - 20 mg/dL Creatinine 1.1 0.7 - 1.2 mg/dL Glucose 153 (H) 65 - 99 mg/dL Calcium 8.9 8.3 - 10.2 mg/dL Specimen Performing Laboratory Plasma specimen [facility] DEPARTMENT OF PATHOLOGY AND [address] [address] * XR Chest 1 Vw Portable (10/15/2017 3:49 PM) Only the most recent of 13 results within the time period is included. Specimen Performing Laboratory [facility] [address] [place] [id number] Narrative Examination:XR CHEST 1 VW PORTABLE Clinical history:"Pleural Effusions" Comparison:10/04/2017 IMPRESSION: There are no new alveolar opacities within either lung.Bibasilar opacities consistent with atelectasis versus small infiltrates appear unchanged. No pneumothoraces are identified. The cardiomediastinal silhouette is unchanged. The bones of the chest are unchanged. Cardiac pacer is again seen. [facility]-[id number] Procedure Note Interface, Radiology Results Incoming - 10/15/2017 3:59 PM MINE SUPERVISOR Examination: XR CHEST 1 VW PORTABLE Clinical history: "Pleural Effusions" Comparison: 10/04/2017 IMPRESSION: There are no new alveolar opacities within either lung. Bibasilar opacities consistent with atelectasis versus small infiltrates appear unchanged. No pneumothoraces are identified. The cardiomediastinal silhouette is unchanged. The bones of the chest are unchanged. Cardiac pacer is again seen. [facility]-[id number] * POC glucose (10/15/2017 11:38 AM) Only the most recent of 132 results within the time period is included. Component Value Ref Range POC glucose 248 (H) 65 - 99 mg/dL Comment: [facility] Notified RN Meter ID: [id number] Sonography Technician: Gorge Hoffmann Specimen Performing Laboratory [facility] DEPARTMENT OF PATHOLOGY AND GENOMIC MEDICINE [address] [place] [id number] * CBC with platelet and differential (10/14/2017 5:00 AM) Only the most recent of 45 results within the time period is included. Component Value Ref Range WBC 8.45 4.50 - 11.00 k/uL RBC 3.84 (L) 4.40 - 6.00 m/uL HGB 9.9 (L) 14.0 - 18.0 g/dL HCT 33.6 (L) 41.0 - 51.0 % MCV 87.5 82.0 - 100.0 fL MCH 25.8 (L) 27.0 - 34.0 pg MCHC 29.5 (L) 31.0 - 37.0 g/dL RDW - SD 48.0 37.0 - 55.0 fL MPV 10.3 8.8 - 13.2 fL Platelet count 152 150 - 400 k/uL Nucleated RBC 0.00 /100 WBC Neutrophils 61.9 39.0 - 69.0 % Lymphocytes 23.3 (L) 25.0 - 45.0 % Monocytes 10.4 (H) 0.0 - 10.0 % Eosinophils 2.7 0.0 - 5.0 % Basophils 0.2 0.0 - 1.0 % Immature granulocytes 1.5 (H)Comment: "Immature granulocytes" 0.0 - 1.0 % (promyelocytes, myelocytes, metamyelocytes) Specimen Performing Laboratory Blood [facility] DEPARTMENT OF PATHOLOGY AND GENOMIC MEDICINE [address] [place] [address] * CT Chest Wo Contrast (10/10/2017 10:22 PM) Specimen Performing Laboratory [facility] [address] [place] [address] Narrative Examination:CT CHEST WO CONTRAST Clinical History: left side large hematoma at site of recent PPM Comparison: None. Findings: CT scans are performed using radiation dose reduction techniques.Technical factors are evaluated and adjusted to ensure appropriate moderation of exposure. Automated dose management technology is applied to adjust radiation exposure while achieving a diagnostic quality image. CT scan of the chest was performed without intravenous contrast. Left lingular atelectasis and right lower lobe atelectasis is seen. Subsegmental atelectasis also noted at the left lower lobe. No consolidation or pleural effusion is seen. No mediastinal hematoma or lymphadenopathy is seen. No pneumothorax is seen. Left chest wall pacemaker device is noted. Metallic artifact in this region limits the study. There is a hyperdense fluid collection just superficial to the pacemaker device measuring 6.5 x 2.7 cm in cross-section. There is some surrounding subcutaneous edema noted. More superiorly there is a component that measures up to 5.2 x 4.5 cm. The visualized upper abdomen shows no acute abnormality. IMPRESSION: 1. Hyperdense collection adjacent to the left chest wall pacemaker device consistent with a hematoma. Some surrounding fat stranding is seen as well. Superimposed infection cannot be excluded. 2. Subsegmental atelectasis in the left lingular and bilateral lower lobes. [facility]-[id number] Procedure Note Interface, Radiology Results Incoming - 10/10/2017 10:53 PM MINE SUPERVISOR Examination: CT CHEST WO CONTRAST Clinical History: left side large hematoma at site of recent PPM Comparison: None. Findings: CT scans are performed using radiation dose reduction techniques. Technical factors are evaluated and adjusted to ensure appropriate moderation of exposure. Automated dose management technology is applied to adjust radiation exposure while achieving a diagnostic quality image. CT scan of the chest was performed without intravenous contrast. Left lingular atelectasis and right lower lobe atelectasis is seen. Subsegmental atelectasis also noted at the left lower lobe. No consolidation or pleural effusion is seen. No mediastinal hematoma or lymphadenopathy is seen. No pneumothorax is seen. Left chest wall pacemaker device is noted. Metallic artifact in this region limits the study. There is a hyperdense fluid collection just superficial to the pacemaker device measuring 6.5 x 2.7 cm in cross-section. There is some surrounding subcutaneous edema noted. More superiorly there is a component that measures up to 5.2 x 4.5 cm. The visualized upper abdomen shows no acute abnormality. IMPRESSION: 1. Hyperdense collection adjacent to the left chest wall pacemaker device consistent with a hematoma. Some surrounding fat stranding is seen as well. Superimposed infection cannot be excluded. 2. Subsegmental atelectasis in the left lingular and bilateral lower lobes. [facility]-[id number] * Potassium level (10/10/2017 2:15 PM) Only the most recent of 5 results within the time period is included. Component Value Ref Range Potassium 5.0 3.5 - 5.0 mEq/L Specimen Performing Laboratory Plasma specimen [facility] DEPARTMENT OF PATHOLOGY AND GENOMIC MEDICINE [address] [place] [address] * NM Lung Ventilation Perfusion (10/08/2017 9:48 AM) Specimen Performing Laboratory [facility] [address] [place] [address] Narrative PROCEDURE:HI LUNG VENTILATION PERFUSION INDICATION:Evaluate for chronic PE. COMPARISON:Portable chest x-ray dated 10/04/2017. TECHNIQUE:Planar ventilation images were acquired after the inhalation of 15 mCi of Xe-133 gas. Planar perfusion images were acquired after the IV adminstration of 5 mCi of Tc-99m MAA. FINDINGS:Ventilation images demonstrate decreased ventilation to the lung periphery and lung bases. Washout images demonstrate patchy gas trapping in both lungs.Perfusion images demonstrate decreased perfusion to the lung periphery and lung bases, matching the ventilation images.No suspicious mismatched defects. Comparison x-ray did not show a confluent infiltrate. IMPRESSION: 1.Low probability for acute PE. 2.Matched defects in both lungs are probably related to underlying obstructive airspace disease.Chronic PE cannot be excluded based on this study, however. [facility]-[id number] Procedure Note Interface, Radiology Results Incoming - 10/08/2017 9:59 AM MINE SUPERVISOR PROCEDURE: NM LUNG VENTILATION PERFUSION INDICATION: Evaluate for chronic PE. COMPARISON: Portable chest x-ray dated 10/04/2017. TECHNIQUE: Planar ventilation images were acquired after the inhalation of 15 mCi of Xe-133 gas. Planar perfusion images were acquired after the IV adminstration of 5 mCi of Tc-99m MAA. FINDINGS: Ventilation images demonstrate decreased ventilation to the lung periphery and lung bases. Washout images demonstrate patchy gas trapping in both lungs. Perfusion images demonstrate decreased perfusion to the lung periphery and lung bases, matching the ventilation images. No suspicious mismatched defects. Comparison x-ray did not show a confluent infiltrate. IMPRESSION: 1. Low probability for acute PE. 2. Matched defects in both lungs are probably related to underlying obstructive airspace disease. Chronic PE cannot be excluded based on this study , however. [facility]-[id number] * Smear review (10/07/2017 4:15 AM) Only the most recent of 2 results within the time period is included. Component Value Ref Range Platelet slide review Isa slt decr Enlarged platelets Moderate (A) Specimen Performing Laboratory [facility] DEPARTMENT OF PATHOLOGY AND GENOMIC MEDICINE [address] [place] [id number] * Urinalysis screen and microscopy, with reflex to culture (10/06/2017 5:40 PM) Only the most recent of 6 results within the time period is included. Component Value Ref Range Specimen site Clean catch Color, UA Yellow Appearance, UA Clear Specific gravity, UA 1.019 1.001 - 1.035 pH, UA 5.0 5.0 - 8.5 Protein, UA Negative Negative Glucose, UA Negative Negative Ketones, UA Negative Negative Bilirubin, UA Negative Negative Blood, UA Negative Negative Nitrite, UA Negative Negative Urobilinogen, UA <2.0 <2.0 Leukocyte esterase, UA Negative Negative Epithelial cells, UA 1 /HPF WBC, UA <1 0 - 1 /HPF RBC, UA 2 (H) 0 - 1 /HPF Bacteria, UA Few None seen Yeast, UA None seen Yeast with pseudohyphae, None seen UA Hyaline casts, UA 4 /LPF Specimen Performing Laboratory Urine [facility] DEPARTMENT OF PATHOLOGY AND GENOMIC MEDICINE [address] [place] [address] * Urine culture (10/06/2017 5:40 PM) Only the most recent of 6 results within the time period is included. Component Value Ref Range Urine culture SEE COMMENTComment: Bacteriuria screen negative. Specimen Performing Laboratory [facility] DEPARTMENT OF PATHOLOGY AND GENOMIC MEDICINE [address] [place] [address] * Blood culture, aerobic & anaerobic (10/06/2017 2:00 PM) Only the most recent of 3 results within the time period is included. Component Value Ref Range Blood culture isolate No growth after 5 days of incubation. Comment: Specimen Information Specimen Source: Blood Specimen Site: Forearm, left Specimen Performing Laboratory Blood - Forearm, left [facility] DEPARTMENT OF PATHOLOGY AND GENOMIC MEDICINE [address] [place] [address] * ECG 12 lead (10/06/2017 12:25 PM) Only the most recent of 11 results within the time period is included. Component Value Ref Range Ventricular rate 75 Atrial rate 75 MD interval 140 QRSD interval 118 QT interval 404 QTC interval 451 P axis 1 48 QRS axis 1 106 T wave axis 117 EKG impression Normal sinus rhythm-Right atrial enlargement-Rightward axis-Nonspecific intraventricular conduction delay-Nonspecific T wave abnormality-Abnormal ECG-In automated comparison with ECG of 04-OCT-2017 14:08,-No significant change was found- Specimen Performing Laboratory [facility] [address] [place] [address] * Echocardiogram 2d limited (10/04/2017 4:25 PM) Specimen Performing Laboratory [facility] [address] [place] [address] Narrative Echocardiography Report [address] [place] [address] Pat.Name:Beatris ISAAC.ID:[id number] .Date: 10/04/2017 Refer.MD:MARCOS PRIDE MD Exam Time: 4:59:00 PMStudy Type:Routine Echo Height:70inWeight:272lb BSA: 2.38 m2 DOBAge:1960 ,56Y Sex: MALEBP: 125/66 HR:77 bpmSonogrphr: Kaycee Ascencio RDCS Pat. Stat.:Inpatient Room:A9 Study Status:Final Echo Event ID:[id number] Order ID:[id number] Reason for Study:Myocardial Ischemia / Infarction - acute ches pain with suspected TX and nondiagnostic ECG with a resting ECHO can be performed during pain History / Clinical:Hypertension, CHF (congestive heart failure), Coronary artery disease, HLD (hyperlipidemia), Bronchitis Procedures:2D Echo, Colorflow Doppler, Intravenous Definity Contrast Race:B SUMMARY: LV EF is mild to moderately depressed. Overall wall motion is mildy hypokinetic. FINDINGS: LV: LV size is moderately enlarged. There is severe eccentric LV hypertrophy.LV EF is mild to moderately depressed. EstimatedEF is 40-44%. Overall wall motion is mildly hypokinetic. RV: RV size is normal. Unable to assess RV systolic function. LA: LA volume is difficult to assess. RA: RA volume is difficult to assess. AO: Aortic root diameter is normal. ZULEYMA: No pericardial effusion. AV: No structural AV abnormalities noted. MV: No structural MV abnormalities noted. PV: Pulmonic valve not well seen. TV: Tricuspid valve not well seen. MEASUREMENTS: 2D Parasternal [place] Ao An2.2 cmLVPWd 1.5 cm LVOT 2.4 cmLA Ds 3.9 cm LVIDd6 cmIndex 2.5 cm/m Ao Rtd 3.5 cm Index1.5 cm/m LVIDs4.7 cm LV Dfqe608.8 g(122-174) LV%fs 22 % LVM Index 197.8 g/m2 IVSd 1.6 cmRWT 0.5 Signed 10/04/2017 05:34 PM Shania Mustafa M.D. Procedure Note Interface, Radiology Results In - 10/04/2017 5:34 PM [facility] Echocardiography Report [address] [address], [place] [address] [facility].Name: SAM ISAAC Pat.ID: [id number] .Date: 10/04/2017 Refer.MD: MARCOS PRIDE MD Exam Time: 4:59:00 PM Study Type:Routine Echo Height: 70in Weight: 272lb BSA: 2.38 m2 Age: 2 1960,56Y Sex: MALE BP: 125/66 HR: 77 bpm Sonogrphr: Kaycee Ascencio RDCS Pat. Stat.:Inpatient Room: [facility] Study Status:Final Echo Event ID:[id number] Order ID: [id number] Reason for Study:Myocardial Ischemia / Infarction - acute ches pain with suspected TX and nondiagnostic ECG with a resting ECHO can be performed during pain History / Clinical:Hypertension, CHF (congestive heart failure), Coronary artery disease, HLD (hyperlipidemia), Bronchitis Procedures:2D Echo, Colorflow Doppler, Intravenous Definity Contrast Race: B SUMMARY: LV EF is mild to moderately depressed. Overall wall motion is mildy hypokinetic. FINDINGS: LV: LV size is moderately enlarged. There is severe eccentric LV hypertrophy. LV EF is mild to moderately depressed. Estimated EF is 40-44%. Overall wall motion is mildly hypokinetic. RV: RV size is normal. Unable to assess RV systolic function. LA: LA volume is difficult to assess. RA: RA volume is difficult to assess. AO: Aortic root diameter is normal. ZULEYMA: No pericardial effusion. AV: No structural AV abnormalities noted. MV: No structural MV abnormalities noted. PV: Pulmonic valve not well seen. TV: Tricuspid valve not well seen. MEASUREMENTS: 2D Parasternal [place] Ao An 2.2 cm LVPWd 1.5 cm LVOT 2.4 cm LA Ds 3.9 cm LVIDd 6 cm Index 2.5 cm/m Ao Rtd 3.5 cm Index 1.5 cm/m LVIDs 4.7 cm LV Mass 470.8 g (122-174) LV%fs 22 % LVM Index 197.8 g/m2 IVSd 1.6 cm RWT 0.5 Signed 10/04/2017 05:34 PM Shania Mustafa M.D. * Troponin (10/04/2017 2:22 PM) Only the most recent of 15 results within the time period is included. Component Value Ref Range Troponin <0.30 0.00 - 0.30 ng/mL Comment: 0.30 - 1.49 ng/ml May indicate increased risk of acute coronary syndrome. >=1.5 ng/ml Consistent with acute myocardial infarction. The diagnostic value of a single normal or non-diagnostic result is questionable. Serial samples at 2-6 hour intervals are required to rule out acute myocardial injury. Specimen Performing Laboratory Plasma specimen [facility] DEPARTMENT OF PATHOLOGY AND GENOMIC MEDICINE [address] [place] [address] * Partial thromboplastin time, activated (10/04/2017 2:22 PM) Only the most recent of 6 results within the time period is included. Component Value Ref Range PTT 23.3 23.0 - 36.0 sec Comment: PTT therapeutic range for unfractionated heparin is 61.0-112.0 seconds which corresponds to Anti-Xa 0.3-0.7 U/ml. Specimen Performing Laboratory Blood [facility] DEPARTMENT OF PATHOLOGY AND GENOMIC MEDICINE [address] [place] [address] * Prothrombin time with INR (10/04/2017 2:22 PM) Only the most recent of 12 results within the time period is included. Component Value Ref Range Prothrombin time 13.5 12.0 - 15.0 sec INR 1.0 Comment: The International Normalized Ratio (INR) is a therapeutic monitoring tool for patients who are stable on oral anticoagulant therapy. An INR of 2.0-3.0 is suggested for deep vein thrombosis/pulmonary embolism. Specimen Performing Laboratory Blood [facility] DEPARTMENT OF PATHOLOGY AND [facility] MEDICINE [address] [place] [address] * Phosphorus level (10/04/2017 2:22 PM) Only the most recent of 13 results within the time period is included. Component Value Ref Range Phosphorus 2.3 (L) 2.4 - 4.5 mg/dL Specimen Performing Laboratory Plasma specimen [facility] DEPARTMENT OF PATHOLOGY AND [facility] MEDICINE [address] [place] [address] * ECG Pre/Post Op-Tomorrow (10/04/2017 11:53 AM) Component Value Ref Range Ventricular rate 78 Atrial rate 78 MD interval 144 QRSD interval 114 QT interval 400 QTC interval 456 P axis 1 44 QRS axis 1 143 T wave axis 110 EKG impression Normal sinus rhythm-Possible Left atrial enlargement-Right axis deviation-Abnormal ECG-In automated comparison with ECG of 29-SEP-2017 19:29,-QT has shortened- Specimen Performing Laboratory [facility] [address] [place] [address] * Cv electrophysiology procedure (10/03/2017 11:27 AM) Specimen Performing Laboratory [facility] [address] [place] [address] Narrative TITLE OF PROCEDURE: Single chamber defibrillator placement. PREOPERATIVE DIAGNOSES: 1.Nonischemic dilated cardiomyopathy. 2.Congestive heart failure. POSTOPERATIVE DIAGNOSES: 1.Nonischemic dilated cardiomyopathy. 2.Congestive heart failure. PROCEDURES PERFORMED: 1.Monitored anesthesia care. 2.Single chamber defibrillator placement. 3.Defibrillation Safety Threshold testing. BRIEF HISTORY AND CLINICAL BACKGROUND: This is a 56-year-old man with aforementioned cardiovascular problems.He also has a history of mental illness and when seen earlier this year, the issue of medication compliance as well as appropriate comprehension of his condition and the options for therapy were in question.Since that time, he has demonstrated compliance with medical management and the usage of LifeVest.His is presently with him and she has defibrillator and together they both affirmed understanding of the procedure, the rationale for the procedure, his potential benefits and risks to the operation and subsequent followup requirements. He comes now for a single chamber defibrillator placement. PROCEDURE IN DETAIL: The patient was taken to the Electrophysiology Laboratory in the postabsorptive-nonsedated state and was placed on a fluoroscopy table. The position of the external defibrillation pads over the heart was confirmed using fluoroscopy. The chest was prepped and draped in the usual sterile fashion. Local anesthesia was achieved with 1% lidocaine.Intravenous conscious sedation using intravenous Versed, Fentanyl, and Phenergan, was provided as necessary. An upper extremity venogram was performed, and during the venogram, access to the axillary vein was achieved.A soft-tipped J-wire was advanced into the venous system.A pocket was then made below the plane of the pectoralis fascia using a scalpel, cautery, and blunt dissection.Using the hkyz-liz-ueeq technique and an introducer sheath, a defibrillation lead was advanced to the right ventricular apex and the fixation mechanism was deployed. Pacing and sensing thresholds were then evaluated.After they were found to be adequate, maximum output pacing was performed to test for diaphragmatic stimulation, and none was seen. The lead was sutured to the pectoral muscle using 0 Ethibond sutures tied over the lead collar.The pocket was visually, manually, and radiographically, inspected to ensure there were no gauze or sponges in the pocket.The pocket was then washed using an antibiotic solution. After washing was complete, gloves were changed and fresh sterile drapes were placed and a defibrillator was unpacked.The defibrillator was then attached to the lead and the set screws were tightened and the leads were gently pulled upon to ensure they were affixed within the device header.The generator and lead slack were placed into the pocket.The device was sutured to the muscle using an 0-Ethibond suture through the suture hole in the header. Defibrillation threshold testing was then performed.After the Defibrillation Safety Threshold was found to be satisfactory, the incision was closed in layers using running 0-Vicryl suture for 2 layers followed by milvia and skin adhesive. COMPLICATIONS: None. FINDINGS: 1.The right ventricular apical defibrillation lead is a [employer] Endotak [place]-G, model 0296, serial #[id number].Measured R-wave 10.1 mV, pacing threshold 0.8 V, current 0.8 mA, impedance 982 ohms. 2.The defibrillator is a [employer] Dynagen EL ICD model D150, serial #[id number]. 3.Ventricular fibrillation was induced and the patient was deeply sedated.It was detected at least sensitivity and terminated with 20 joules delivered energy, 43 ohms high voltage impedance back to sinus rhythm.He woke without sequelae. OTHER FINDINGS: Estimated blood loss less than 10 mL. CONCLUSIONS: Successful ICD placement. RECOMMENDATIONS: Return to his room, IV antibiotics and continue therapies per Dr. Neumann and Dr. Pride. * Pv duplex venous upper extremity (10/02/2017 5:46 PM) Only the most recent of 3 results within the time period is included. Specimen Performing Laboratory [facility] [address] [place] [address] Narrative Vascular Ultrasound Laboratory Lower Extremity Venous Report [address] [place] [address] Pat.Name:Beatris ISAAC.ID:[id number] .Date: 10/02/2017 Refer.MD:MARCOS NEUMANN MD Exam Time: 5:20:00 PMStudy Type:LE Venous DOBAge:1960,56YSex: MALE Sonogrphr: [place], SAVANNA Pat. Stat.:Inpatient Room:[address] TapeVol: [place], CPT - 4: [address] Echo Event ID:[id number] Order ID:[id number] Reason for Study:Evaluate for DVT. History of HTN, HDL, DM2, CAD, ARF. Race:B SUMMARY: DUPLEX SCAN OBSERVATIONS Right Left IJNormal Normal SubclavianNormal Normal AxillaryNormal Normal BrachialNormal Normal BasilicNormal Normal CephalicNormal Normal RIGHT:There is normal compressibility and no evidence of echogenic material noted within the lumen of the visualized veins. Colorflow and Doppler signals are normal. LEFT:There is normal compressibility and no evidence of echogenic material noted within the lumen of the visualized veins. Colorflow and Doppler signals are normal. PRELIMINARY FINDINGS 1. No evidence of venous thrombosis of the visualized veins, bilaterally. PHYSICIAN INTERPRETATION Venous examination of the both upper extremities and neck demonstrated no evidence of venous thrombosis. Signed 10/02/2017 06:33 PM Chanell Fitzgerald MD, FROILAN Procedure Note Interface, Radiology Results In - 10/02/2017 6:34 PM MINE SUPERVISOR Vascular Ultrasound Laboratory Lower Extremity Venous Report [address] [place] [address] Pat.Name: SAM ISAAC Pat.ID: [id number] .Date: 10/02/2017 Refer.MD: MARCOS NEUMANN MD Exam Time: 5:20:00 PM Study Type:LE Venous Age: 2 1960,56Y Sex: MALE Sonogrphr: [place], SAVANNA Pat. Stat.:Inpatient Room: [address] [address] A Tape Vol: [place], CPT - 4: [address] Echo Event ID:[id number] Order ID: [id number] Reason for Study:Evaluate for DVT. History of HTN, HDL, DM2, CAD, ARF. Race: B SUMMARY: DUPLEX SCAN OBSERVATIONS Right Left IJ Normal Normal Subclavian Normal Normal Axillary Normal Normal Brachial Normal Normal Basilic Normal Normal Cephalic Normal Normal RIGHT: There is normal compressibility and no evidence of echogenic material noted within the lumen of the visualized veins. Colorflow and Doppler signals are normal. LEFT: There is normal compressibility and no evidence of echogenic material noted within the lumen of the visualized veins. Colorflow and Doppler signals are normal. PRELIMINARY FINDINGS 1. No evidence of venous thrombosis of the visualized veins, bilaterally. PHYSICIAN INTERPRETATION Venous examination of the both upper extremities and neck demonstrated no evidence of venous thrombosis. Signed 10/02/2017 06:33 PM Chanell Fitzgerald MD, FROILAN * Echocardiogram complete w contrast and 3D if needed (10/02/2017 4:21 PM) Specimen Performing Laboratory [facility] [address] [id number] Narrative Echocardiography Report [address] [place] [address] Pat.Name:Beatris ISAAC.ID:[id number] .Date: 10/02/2017 Refer.MD:MARCOS NEUMANN MD Exam Time: 4:15:00 PMStudy Type:Routine Echo Height:70inWeight:280lb BSA: 2.41 m2 DOBAge:1960 ,56Y Sex: MALEBP: 137/72 HR:73 bpmSonogrphr: Kaycee Ascencio RDCS Pat. Stat.:Inpatient Room:[facility] Study Status:Final Echo Event ID:[id number] Order ID:[id number] Reason for Study:HF - Re-eval of known HF (systolic or diastolic) with a change in clinical status or cardiac exam without a clear precipitating change in medication or diet History / Clinical:Hypertension, CHF (congestive heart failure), Coronary artery disease, HLD (hyperlipidemia), Bronchitis Procedures:2D Echo, Colorflow Doppler, Portable, Intravenous Definity Contrast Race:B SUMMARY: LV EF is severely depressed. Overall wall motion is hypokinetic. Estimated EF is 20-24%. RV systolic function is depressed. LV relaxation is severely impaired. LV filling pressure is elevated, mean PCWP is 15-20mmHg. Estimated PA systolic pressure is 40mmHg, assuming a mean RAP of 10 mmHg. FINDINGS: LV: LV size is moderately enlarged. There is severe eccentric LV hypertrophy.LV EF is severely depressed. Overall wall motionis hypokinetic. Estimated EF is 20-24%. RV: RV size is normal. RV systolic function is depressed. LA: LA size is normal. RA: RA size is normal. AO: Aortic root diameter is normal. ZULEYMA: No pericardial effusion. There is an anterior space consistentwith a prominent epicardial fat pad. AV: Mild calcification of AV leaflets. MV: No structural MV abnormalities noted. PV: No structural PV abnormalities noted. A trace of pulmonic regurgitation. TV: No structural TV abnormalities noted. Parr: LV relaxation is severely impaired. LV filling pressure is elevated,mean PCWP is 15-20mmHg. Other:Estimated PA systolic pressure is 40mmHg, assuming a mean RAPof 10 mmHg. MEASUREMENTS: 2D Parasternal [place] LVOT 2.2 cmLA Ds 4.4 cm LVIDd6.6 cmIndex 2.7 cm/m Ao An2.4 cm LVIDs5.8 cmAo Rtd 3 cm Index1.3 cm/m LV%fs 12.1 % LV Zvhz031.4 g(122-174) IVSd 1.4 cmLVM Index 187.7 g/m2 LVPWd1.4 cmRWT 0.4 LA Sng Plane LA Area 24.6 cm2(8.8-23.4) LA Vol71.3 ml Index29.6 ml/m LA LngAx 7 cm RA Sng Plane RA Area 21 cm2(8.3-19.5) RA Vol 63.9 ml Index26.5 ml/m RA LngAx 5.8 cm DOPPLER LVOT For Flow LVOT Area3.8 cm2 LVOT SV 52.8 ml LVOTpkVel 76 cm/sHR 67.3 bpm LVOTpkPG 2.3 mmHgLVOT CO 3.6 l/min LVOTmnPG 1.2 mmHgLVOT CI 1.5 l/m/m2 LVOT TVI13.9 cm Signed 10/02/2017 06:54 PM Jaspal Power M.D. Procedure Note Interface, Radiology Results In - 10/02/2017 6:55 PM [facility] Echocardiography Report [id number] [address], [place] [address] Pat.Name: SAM ISAAC.ID: [id number] .Date: 10/02/2017 Refer.MD: MARCOS NEUMANN MD Exam Time: 4:15:00 PM Study Type:Routine Echo Height: 70in Weight: 280lb BSA: 2.41 m2 Age: 2 1960,56Y Sex: MALE BP: 137/72 HR: 73 bpm Sonogrphr: Kaycee Ascencio RDCS Pat. Stat.:Inpatient Room: 38 Study Status:Final Echo Event ID:[id number] Order ID: [id number] Reason for Study:HF - Re-eval of known HF (systolic or diastolic) with a change in clinical status or cardiac exam without a clear precipitating change in medication or diet History / Clinical:Hypertension, CHF (congestive heart failure), Coronary artery disease, HLD (hyperlipidemia), Bronchitis Procedures:2D Echo, Colorflow Doppler, Portable, Intravenous Definity Contrast Race: B SUMMARY: LV EF is severely depressed. Overall wall motion is hypokinetic. Estimated EF is 20-24%. RV systolic function is depressed. LV relaxation is severely impaired. LV filling pressure is elevated, mean PCWP is 15-20mmHg. Estimated PA systolic pressure is 40mmHg, assuming a mean RAP of 10 mmHg. FINDINGS: LV: LV size is moderately enlarged. There is severe eccentric LV hypertrophy. LV EF is severely depressed. Overall wall motion is hypokinetic. Estimated EF is 20-24%. RV: RV size is normal. RV systolic function is depressed. LA: LA size is normal. RA: RA size is normal. AO: Aortic root diameter is normal. ZULEYMA: No pericardial effusion. There is an anterior space consistent with a prominent epicardial fat pad. AV: Mild calcification of AV leaflets. MV: No structural MV abnormalities noted. PV: No structural PV abnormalities noted. A trace of pulmonic regurgitation. TV: No structural TV abnormalities noted. Parr: LV relaxation is severely impaired. LV filling pressure is elevated, mean PCWP is 15-20mmHg. Other: Estimated PA systolic pressure is 40mmHg, assuming a mean RAP of 10 mmHg. MEASUREMENTS: 2D Parasternal [place] LVOT 2.2 cm LA Ds 4.4 cm LVIDd 6.6 cm Index 2.7 cm/m Ao An 2.4 cm LVIDs 5.8 cm Ao Rtd 3 cm Index 1.3 cm/m LV%fs 12.1 % LV Mass 452.4 g (122-174) IVSd 1.4 cm LVM Index 187.7 g/m2 LVPWd 1.4 cm RWT 0.4 LA Sng Plane LA Area 24.6 cm2 (8.8-23.4) LA Vol 71.3 ml Index 29.6 ml/m LA LngAx 7 cm RA Sng Plane RA Area 21 cm2 (8.3-19.5) RA Vol 63.9 ml Index 26.5 ml/m RA LngAx 5.8 cm DOPPLER LVOT For Flow LVOT Area 3.8 cm2 LVOT SV 52.8 ml LVOTpkVel 76 cm/s HR 67.3 bpm LVOTpkPG 2.3 mmHg LVOT CO 3.6 l/min LVOTmnPG 1.2 mmHg LVOT CI 1.5 l/m/m2 LVOT TVI 13.9 cm Signed 10/02/2017 06:54 PM Jaspal Power M.D. * Arterial blood gas (10/02/2017 7:36 AM) Only the most recent of 11 results within the time period is included. Component Value Ref Range pH, arterial 7.43 7.35 - 7.45 pCO2, arterial 54 (H) 35 - 45 mmHg pO2, arterial 170 (H) 80 - 90 mmHg Bicarbonate, arterial 35.1 (H) 21.0 - 28.0 mmol/L Base excess, arterial 9 (H) -2 - 2 mEq/L O2 saturation, arterial 100 95 - 100 % Specimen Performing Laboratory Blood [facility] DEPARTMENT OF PATHOLOGY AND GENOMIC MEDICINE [address] [place] [id number] * Urine drugs of abuse screen (09/30/2017 4:00 PM) Only the most recent of 3 results within the time period is included. Component Value Ref Range Amphetamine screen, urine Negative Barbiturate screen, urine Negative Benzodiazepine screen, Negative urine Cannabinoid screen, urine Negative Cocaine screen, urine Negative Methadone metabolite Negative (EDDP), urine Opiates screen, urine Negative Oxycodone screen, urine Negative Phencyclidine screen, Negative urine Tricyclic screen, urine Negative Comment: Drug screen minimum concentration of detectability Amphetamines 1000 ng/mL Barbiturates 200 ng/mL Benzodiazepines 300 ng/mL Cocaine 300 ng/mL Methadone 3 00 ng/mL Opiates 300 ng/mL Oxycodone 3 00 ng/mL Phencyclidine 25 ng/mL Cannabinoids 50 ng/mL Tricyclics 1000 ng/mL Negative test results indicates presumptive evidence of lack of clinically significant drug concentration in this urine specimen. Positive test results are presumptive evidence of clinically significant drug concentration in this urine specimen. Testing performed for medical purposes only. Specimen Performing Laboratory Urine [facility] DEPARTMENT OF PATHOLOGY AND GENOMIC MEDICINE [address] [place] [address] * Urinalysis, automated with microscopy (09/30/2017 4:00 PM) Only the most recent of 2 results within the time period is included. Component Value Ref Range Color, UA Straw Appearance, UA Clear Specific gravity, UA 1.008 1.001 - 1.035 pH, UA 5.0 5.0 - 8.5 Protein, UA Negative Negative Glucose, UA Negative Negative Ketones, UA Negative Negative Bilirubin, UA Negative Negative Blood, UA Negative Negative Nitrite, UA Negative Negative Urobilinogen, UA <2.0 <2.0 Leukocyte esterase, UA Negative Negative Epithelial cells, UA 1 /HPF WBC, UA None seen 0 - 1 /HPF RBC, UA 1 0 - 1 /HPF Bacteria, UA Few None seen Hyaline casts, UA 20 /LPF Yeast, UA None seen Yeast with pseudohyphae, None seen UA Specimen Performing Laboratory Urine [facility] DEPARTMENT OF PATHOLOGY AND GENOMIC MEDICINE [address] [place] [id number] * Respiratory pathogen panel (09/30/2017 3:22 PM) Only the most recent of 2 results within the time period is included. Component Value Ref Range Respiratory pathogen Negative for all pathogens tested: panel Negative for Adenovirus Negative for Coronavirus HKU1 Negative for Coronavirus NL63 Negative for Coronavirus 229E Negative for Coronavirus OC43 Negative for Human Metapneumovirus Negative for Rhinovirus/Enterovirus Negative for Influenza A Negative for Influenza A/H1 Negative for Influenza A/H3 Negative for Influenza A/H1-2009 Negative for Influenza B Negative for Parainfluenza Virus 1 Negative for Parainfluenza Virus 2 Negative for Parainfluenza Virus 3 Negative for Parainfluenza Virus 4 Negative for Respiratory Syncytial Virus Negative for Bordetella pertussis Negative for Chlamydophila pneumoniae Negative for Mycoplasma pneumoniae This real-time PCR assay detects the presence of nucleic acids (RNA or DNA) for the respiratory pathogens listed. A result of "Not-detected" does not exclude the possibility of the presence of one or more pathogens at concentrations less than the detectable limits of the assay. Comment: Specimen Information Specimen Source: Nares Specimen Site: Not specified Specimen Performing Laboratory Nares - Not specified [facility] DEPARTMENT OF PATHOLOGY AND GENOMIC MEDICINE [address] [place] [address] * Hemoglobin A1c (09/30/2017 1:17 PM) Only the most recent of 4 results within the time period is included. Component Value Ref Range Hemoglobin A1C 6.9 (H) 4.0 - 5.6 % Comment: HbA1c cutoffs for diagnosing diabetes: 4.0% - 5.6%=normal 5.7% - 6.4%=increased risk for diabetes (prediabetes) >=6.5%=diabetes Goals for glycemic control (ADA 2016) < 7.0% Target for non adults with diabetes. More or less stringent targets may be appropriate for individual patients. <7.5% Target for Children and adolescents with type 1 diabetes. Specimen Performing Laboratory Blood [facility] DEPARTMENT OF PATHOLOGY AND GENOMIC MEDICINE [address] [place] [address] * CRITICAL CARE (09/30/2017 12:25 AM) Gabriel Fuentes DO 09/30/2017 12:25 AM Critical Care Performed by: GINA NESS Authorized by: JACEK FUENTES Critical care provider statement: Critical care time (minutes):35 Critical care time was exclusive of:Teaching time and separately billable procedures and treating other patients (hypertensive emergency) Critical care was necessary to treat or prevent imminent or life-threatening deterioration of the following conditions:Cardiac failure, circulatory failure, [employer] failure or compromise, dehydration, hepatic failure, metabolic crisis, endocrine crisis, respiratory failure, sepsis, shock, toxidrome, trauma and renal failure Critical care was time spent personally by me on the following activities:Blood draw for specimens, development of treatment plan with patient or surrogate, discussions with primary provider, evaluation of patient's response to treatment, examination of patient, gastric intubation, interpretation of cardiac output measurements, obtaining history from patient or surrogate, pulse oximetry, re-evaluation of patient's condition, review of old charts, transcutaneous pacing, vascular access procedures, ordering and review of radiographic studies, ordering and review of laboratory studies and ordering and performing treatments and interventions José 'yes' if you are taking over critical care for this patient from another provider.: no * Creatine kinase, total (CPK) (09/29/2017 9:56 PM) Only the most recent of 4 results within the time period is included. Component Value Ref Range Creatine kinase 313 (H) 39 - 308 U/L Specimen Performing Laboratory Plasma specimen [facility] DEPARTMENT OF PATHOLOGY AND GENOMIC MEDICINE [address] [place] [id number] * Comprehensive metabolic panel (09/29/2017 9:56 PM) Only the most recent of 14 results within the time period is included. Component Value Ref Range Sodium 145 135 - 148 mEq/L Potassium 3.9 3.5 - 5.0 mEq/L Chloride 100 98 - 112 mEq/L CO2 35 (H) 24 - 31 mEq/L Anion gap 10 7 - 15 mEq/L Comment: Starting from January , anion gap calculation no longer incorporates potassium. Please note the change. BUN 13 6 - 20 mg/dL Creatinine 1.2 0.7 - 1.2 mg/dL Glucose 106 (H) 65 - 99 mg/dL Calcium 8.8 8.3 - 10.2 mg/dL Protein 7.5 6.3 - 8.3 g/dL Comment: [place] 4.6-7.0 g/dL 1 week 4.4-7.6 g/dL 7 months-1year 5.1-7.3 g/dL 1-2 years 5.6-7.5 g/dL >3 years 6.0-8.0 g/dL 18-150 6.3-8.3 g/dL Albumin 3.5 3.5 - 5.0 g/dL A/G ratio 0.9 0.7 - 3.8 Alkaline phosphatase 79 40 - 129 U/L AST 31 10 - 50 U/L ALT 24 5 - 50 U/L Total bilirubin 0.6 0.0 - 1.2 mg/dL Specimen Performing Laboratory Plasma specimen [facility] DEPARTMENT OF PATHOLOGY AND GENOMIC MEDICINE [address] [place] [address] * CRITICAL CARE (08/31/2017 10:46 AM) Narrative Wilber Quiñones MD 08/31/2017 10:46 AM Critical Care Performed by: WILBER QUIÑONES Authorized by: WILBER QUIÑONES Critical care provider statement: Critical care time (minutes):35 Critical care time was exclusive of:Separately billable procedures and treating other patients Critical care was necessary to treat or prevent imminent or life-threatening deterioration of the following conditions: hypertensive urgency. Critical care was time spent personally by me on the following activities:Blood draw for specimens, discussions with consultants, development of treatment plan with patient or surrogate, discussions with primary provider, evaluation of patient's response to treatment, examination of patient, obtaining history from patient or surrogate, ordering and performing treatments and interventions, ordering and review of laboratory studies, ordering and review of radiographic studies, pulse oximetry, re-evaluation of patient's condition and review of old charts José 'yes' if you are taking over critical care for this patient from another provider.: no * Uric acid level (08/09/2017 4:00 AM) Only the most recent of 4 results within the time period is included. Component Value Ref Range Uric acid 10.3 (H) 3.4 - 7.0 mg/dL Specimen Performing Laboratory Plasma specimen [facility] DEPARTMENT OF PATHOLOGY AND [facility] MEDICINE [address] [place], [place] [id number] * Urine eosinophils (08/08/2017 12:24 PM) Only the most recent of 2 results within the time period is included. Component Value Ref Range Eosinophils, urine NONE Specimen Performing Laboratory Urine [facility] DEPARTMENT OF PATHOLOGY AND GENOMIC MEDICINE [address] [place] [id number] * Renin activity (08/08/2017 12:24 PM) Component Value Ref Range Renin activity 31.4 Comment: Specimen diluted and results confirmed. INTERPRETIVE INFORMATION: Renin Activity Adult, Normal sodium diet: Supine ................. 0.2-1.6 ng/mL/hr Upright ................ 0.5-4.0 ng/mL/hr Children, Normal sodium diet, Supine: [place] (1-7 days) ..... 2.0-35.0 ng/mL/hr Cord blood ............. 4.0-32.0 ng/mL/hr 1-12 mos ............... 2.4-37.0 ng/mL/hr 13 mos-3 yrs ........... 1.7-11.2 ng/mL/hr 4-5 yrs ................ 1.0- 6.5 ng/mL/hr 6-10 yrs ............... 0.5- 5.9 ng/mL/hr 11-15 yrs .............. 0.5- 3.3 ng/mL/hr Children, normal sodium diet, Upright: 0-3 yrs ................ Not Available 4-5 yrs ................ Less than or equal to 15 ng/mL/hr 6-10 yrs ............... Less than or equal to 17 ng/mL/hr 11-15 yrs .............. Less than or equal to 16 ng/mL/hr Plasma renin activity measures enzyme ability to convert angiotensinogen to angiotensin I and is limited by the availability of angiotensinogen. Plasma renin activity is not an accurate indicator of enzyme activity when angiotensinogen is decreased. See Compliance Statement D: [email or web address] Performed by [facility], [address] [place] [id number] [email or web address], Abhijit Howell MD - Lab. Director Specimen Performing Laboratory Blood [address] [address] * Aldosterone, serum (08/08/2017 12:24 PM) Component Value Ref Range Aldosterone 36.6 ng/dL Comment: INTERPRETIVE INFORMATION: Aldosterone, Serum Reference intervals for age 15 and older: Upright ......... 4.0 - 31.0 ng/dL Supine .......... Less than or equal to 16.0 ng/dL Unspecified ..... Less than or equal to 31.0 ng/dL Normal serum levels of aldosterone are dependent on the sodium intake and whether the patient is upright or supine. High sodium intake will tend to suppress serum aldosterone, whereas low sodium intake will elevate serum aldosterone. The reference intervals for serum aldosterone are based on normal sodium intake. Access complete set of age- and/or gender-specific reference intervals for this test in the [facility] Test Directory ([employer]). Performed by [facility], [address] [place] [id number] [email or web address], Abhijit Howell MD - Lab. Director Specimen Performing Laboratory Serum [address] [address] * Sodium level, urine, random (08/08/2017 12:24 PM) Only the most recent of 2 results within the time period is included. Component Value Ref Range Sodium, urine, random 110 mEq/L Specimen Performing Laboratory Urine [facility] DEPARTMENT OF PATHOLOGY AND GENOMIC MEDICINE [address] [place] [address] * Protein, urine, random (08/08/2017 12:24 PM) Only the most recent of 2 results within the time period is included. Component Value Ref Range Protein, urine random <4 mg/dL Specimen Performing Laboratory Urine [facility] DEPARTMENT OF PATHOLOGY AND GENOMIC MEDICINE [address] [place] [address] * Potassium, urine, random (08/08/2017 12:24 PM) Only the most recent of 2 results within the time period is included. Component Value Ref Range Potassium, urine, random 26.0 mEq/L Specimen Performing Laboratory Urine [facility] DEPARTMENT OF PATHOLOGY AND GENOMIC MEDICINE [address] [place] [address] * Osmolality, urine (08/08/2017 12:24 PM) Only the most recent of 2 results within the time period is included. Component Value Ref Range Osmolality, urine 350 50 - 1,400 mOsm/kg Specimen Performing Laboratory Urine [facility] [place] [address] * Creatinine level, urine, random (08/08/2017 12:24 PM) Only the most recent of 2 results within the time period is included. Component Value Ref Range Creatinine, urine, random 37 mg/dL Specimen Performing Laboratory Urine [facility] [place] [address] * Chloride level, urine, random (08/08/2017 12:24 PM) Only the most recent of 2 results within the time period is included. Component Value Ref Range Chloride, urine, random 105 mEq/L Specimen Performing Laboratory Urine [facility] [place] [address] * Thyroid stimulating hormone (08/08/2017 12:24 PM) Only the most recent of 2 results within the time period is included. Component Value Ref Range TSH 5.53 (H) 0.27 - 4.20 uIU/mL Specimen Performing Laboratory Plasma specimen [facility] [place] [address] * Parathyroid hormone (08/08/2017 12:24 PM) Component Value Ref Range PTH 84 (H) 15 - 65 pg/mL Specimen Performing Laboratory Blood [facility] [place] [address] * Osmolality, serum (08/08/2017 12:24 PM) Component Value Ref Range Osmolality 301 (H) 275 - 295 mOsm/kg Specimen Performing Laboratory Blood [facility] [place] [address] * CBC hemogram (08/08/2017 4:15 AM) Only the most recent of 2 results within the time period is included. Component Value Ref Range WBC 8.87 4.50 - 11.00 k/uL RBC 5.88 4.40 - 6.00 m/uL HGB 15.1 14.0 - 18.0 g/dL HCT 49.3 41.0 - 51.0 % MCV 83.8 82.0 - 100.0 fL MCH 25.7 (L) 27.0 - 34.0 pg MCHC 30.6 (L) 31.0 - 37.0 g/dL RDW - SD 46.4 37.0 - 55.0 fL MPV 11.3 8.8 - 13.2 fL Platelet count 195 150 - 400 k/uL Nucleated RBC 0.00 /100 WBC Specimen Performing Laboratory Blood [facility] DEPARTMENT OF PATHOLOGY AND GENOMIC MEDICINE [address] [place] [address] * CT Abdomen Pelvis Wo Contrast (08/03/2017 8:26 PM) Only the most recent of 2 results within the time period is included. Specimen Performing Laboratory [facility] [address] [place] [address] Narrative EXAMINATION:CT ABDOMEN PELVIS WO CONTRAST CLINICAL HISTORY:RUQ abd pain TECHNIQUE: Multiple axial images of the abdomen and pelvis were obtained without intravenous administration of iodinated contrast. Sagittal and coronal computerized reformatted images were also obtained. The lack of intravenous contrast reduces the sensitivity of detecting solid organ disease. Radiation dose reduction technique was utilized. COMPARISON:July 12, 2017 IMPRESSION: Abdomen: 1. Images through the lower chest demonstrate cardiomegaly. 2.Gallbladder is absent. 3.Liver, spleen, pancreas, adrenals, and kidneys do not demonstrate any masses without contrast. 4.There is no urinary tract calculus or hydronephrosis. 5.There is no intestinal obstruction. Pelvis: 1. Appendix is normal. 2.There is mild sigmoid diverticulosis without diverticulitis. 3.There is no pelvic mass, adenopathy, fluid collection. 4.There is hardware in the lumbar spine. [facility]-[id number] Procedure Note Interface, Radiology Results Incoming - 08/03/2017 8:58 PM CDT EXAMINATION: CT ABDOMEN PELVIS WO CONTRAST CLINICAL HISTORY: RUQ abd pain TECHNIQUE: Multiple axial images of the abdomen and pelvis were obtained without intravenous administration of iodinated contrast. Sagittal and coronal computerized reformatted images were also obtained. The lack of intravenous contrast reduces the sensitivity of detecting solid organ disease. Radiation dose reduction technique was utilized. COMPARISON: July 12, 2017 IMPRESSION: Abdomen: 1. Images through the lower chest demonstrate cardiomegaly. 2. Gallbladder is absent. 3. Liver, spleen, pancreas, adrenals, and kidneys do not demonstrate any masses without contrast. 4. There is no urinary tract calculus or hydronephrosis. 5. There is no intestinal obstruction. Pelvis: 1. Appendix is normal. 2. There is mild sigmoid diverticulosis without diverticulitis. 3. There is no pelvic mass, adenopathy, fluid collection. 4. There is hardware in the lumbar spine. [facility]-[id number] * CRITICAL CARE (08/01/2017 8:54 AM) Narrative Neil Patel MD 08/01/20178:54 AM Critical Care Performed by: NEIL PATEL Authorized by: NEIL PATEL Critical care provider statement: Critical care time (minutes):30 Critical care time was exclusive of:Separately billable procedures and treating other patients and teaching time Critical care was necessary to treat or prevent imminent or life-threatening deterioration of the following conditions:Circulatory failure Critical care was time spent personally by me on the following activities:Development of treatment plan with patient or surrogate, discussions with consultants, discussions with primary provider, evaluation of patient's response to treatment, examination of patient, interpretation of cardiac output measurements, obtaining history from patient or surrogate, ordering and performing treatments and interventions, ordering and review of laboratory studies, ordering and review of radiographic studies, pulse oximetry and re-evaluation of patient's condition * XR Abdomen Acute Inc Chest (07/31/2017 6:34 PM) Specimen Performing Laboratory [facility] [address] [place] [address] Narrative EXAMINATION:XR ABDOMEN ACUTE INC CHEST CLINICAL HISTORY: Bowel ileus COMPARISON:None. FINDINGS: Heart size is enlarged. There is vascular congestion with basal volume loss and fluid on each side. There are postoperative changes in the lower lumbar spine. There are also surgical clips in the right upper quadrant. Bowel gas pattern is nonspecific. IMPRESSION: As above [facility]-[id number] Procedure Note Interface, Radiology Results Incoming - 07/31/2017 6:42 PM CDT EXAMINATION: XR ABDOMEN ACUTE INC CHEST CLINICAL HISTORY: Bowel ileus COMPARISON: None. FINDINGS: Heart size is enlarged. There is vascular congestion with basal volume loss and fluid on each side. There are postoperative changes in the lower lumbar spine. There are also surgical clips in the right upper quadrant. Bowel gas pattern is nonspecific. IMPRESSION: As above [facility]-[id number] * Ionized calcium (07/19/2017 1:20 AM) Only the most recent of 4 results within the time period is included. Component Value Ref Range pH 7.60 Ionized calcium 1.07 (L) 1.11 - 1.32 mmol/L Specimen Performing Laboratory Plasma specimen [facility] DEPARTMENT OF PATHOLOGY AND GENOMIC MEDICINE [address] [place] [address] * Hepatic function panel (07/19/2017 1:20 AM) Only the most recent of 2 results within the time period is included. Component Value Ref Range Albumin 2.8 (L) 3.5 - 5.0 g/dL Total bilirubin 1.0 0.0 - 1.2 mg/dL Bilirubin direct 0.4 (H) 0.0 - 0.3 mg/dL Alkaline phosphatase 45 40 - 129 U/L Protein 5.7 (L) 6.3 - 8.3 g/dL Comment: [place] 4.6-7.0 g/dL 1 week 4.4-7.6 g/dL 7 months-1year 5.1-7.3 g/dL 1-2 years 5.6-7.5 g/dL >3 years 6.0-8.0 g/dL 18-150 6.3-8.3 g/dL ALT 65 (H) 5 - 50 U/L AST 46 10 - 50 U/L Specimen Performing Laboratory Plasma specimen [facility] DEPARTMENT OF [place] [address] * XR Abdomen 1 Vw Portable (07/17/2017 3:06 PM) Specimen [place] [address] Narrative EXAMINATION:XR ABDOMEN 1 VW PORTABLE CLINICAL HISTORY:Check feeding tube placement COMPARISON:None. IMPRESSION: There is a nonspecific bowel gas pattern. No free air is identified. Nasogastric tube terminates in the body the stomach Postoperative changes of lumbar spine The gallbladder has been removed [facility]-[id number] Procedure Note Interface, Radiology Results Incoming - 07/17/2017 4:02 PM CDT EXAMINATION: XR ABDOMEN 1 VW PORTABLE CLINICAL HISTORY: Check feeding tube placement COMPARISON: None. IMPRESSION: There is a nonspecific bowel gas pattern. No free air is identified. Nasogastric tube terminates in the body the stomach Postoperative changes of lumbar spine The gallbladder has been removed [facility]-[id number] * Surgical pathology request (07/17/2017 12:10 PM) Component Value Ref Range Surgical pathology report See link below for PDF Lab Report Specimen Performing Laboratory [facility] DEPARTMENT OF PATHOLOGY AND [facility] MEDICINE [address] [place] [id number] * Ionized calcium, arterial (07/17/2017 10:10 AM) Component Value Ref Range Ionized calcium, arterial 0.88 (L)Comment: Specimen is slightly hemolyzed. 1.11 - 1.32 mmol/L Interpret results accordingly. Specimen Performing Laboratory Blood [facility] [place] [address] * Lactic acid level (07/17/2017 10:10 AM) Only the most recent of 2 results within the time period is included. Component Value Ref Range Lactic acid 1.8 0.5 - 2.2 mmol/L Specimen Performing Laboratory Plasma specimen [facility] [place] [address] * Type and screen (07/17/2017 4:30 AM) Component Value Ref Range ABO grouping O Rh type POS Antibody screen (gel) NEG Specimen Performing Laboratory Blood [facility] [place] [address] * HCV qualitative by PCR (07/14/2017 4:00 AM) Component Value Ref Range HCV PCR result Detected (A) Not-Detected HCV RNA qualitative See link below for PDF Lab ReportComment: Specimen Performing Laboratory [facility] [place] [address] * Hepatitis C antibody (07/14/2017 4:00 AM) Component Value Ref Range Hepatitis C Ab Reactive (A) Non-reactive Comment: HCV antibody testing initially Reactive. Confirmation by HCV RNA PCR will be performed and reported separately when completed. Repeat HCV RNA PCR will not be performed if done within 30 days. Specimen Performing Laboratory Blood [facility] DEPARTMENT OF PATHOLOGY AND [facility] [address] [place] [address] * Hepatitis C virus quantitative by PCR (07/14/2017 4:00 AM) Component Value Ref Range Hepatitis C quantitative, 13,900,000 (A) Not-Detected IU/mL PCR Hepatitis C quantitative, See link below for PDF Lab ReportComment: Case PCR Number: [id number] Specimen Performing Laboratory [facility] [place] [address] * MRI CHOLANGIOGRAM W WO CONTRAST (07/13/2017 10:04 PM) Specimen Performing Laboratory [facility] [address] [place] [address] Narrative EXAMINATION:MRI CHOLANGIOGRAM W WO CONTRAST CLINICAL HISTORY: Concern for CBD dilation choledocholithiasis COMPARISON:July 12, 2017 CT scan Technique: Multiplanar imaging of the abdomen was performed both before and following intravenous gadolinium administration. Additional MRCP sequences were performed with multiplanar and three-dimensional reconstructions obtained on the acquisition scanner. FINDINGS: 1.Examination is significantly limited due to the patient's size. 2.The biliary system is not dilated and there are no filling defects identified to suggest common bile duct stones. 3.The gallbladder is not well-distended but no definite cholelithiasis noted. 4.No focal lesions are seen in the liver, spleen, pancreas, kidneys, or adrenal glands. 5.The abdominal aorta is of normal caliber. 6.No free fluid is noted in the upper abdomen. IMPRESSION: No evidence of biliary dilatation or choledocholithiasis. [facility]-[id number] Procedure Note [facility], Radiology Results [facility] - 07/13/2017 10:56 PM CDT EXAMINATION: MRI CHOLANGIOGRAM W WO CONTRAST CLINICAL HISTORY: Concern for CBD dilation choledocholithiasis COMPARISON: July 12, 2017 CT scan Technique: Multiplanar imaging of the abdomen was performed both before and following intravenous gadolinium administration. Additional MRCP sequences were performed with multiplanar and three-dimensional reconstructions obtained on the acquisition scanner. FINDINGS: 1. Examination is significantly limited due to the patient's size. 2. The biliary system is not dilated and there are no filling defects identified to suggest common bile duct stones. 3. The gallbladder is not well-distended but no definite cholelithiasis noted. 4. No focal lesions are seen in the liver, spleen, pancreas, kidneys, or adrenal glands. 5. The abdominal aorta is of normal caliber. 6. No free fluid is noted in the upper abdomen. IMPRESSION: No evidence of biliary dilatation or choledocholithiasis. [facility]-[id number] * NM Hepatobiliary (HIDA Scan) (07/13/2017 3:07 PM) Specimen Performing Laboratory [facility] [address] [place] [address] Narrative PROCEDURE:NM HEPATOBILIARY (HIDA SCAN) INDICATION:Abdominal pain. TECHNIQUE: The patient was injected with 5 mCi of Tc-99m Choletec, IV. Dynamic planar images of the abdomen were acquired for 1 hour.Delayed images were obtained at 4 hours. FINDINGS:Tracer is seen within small bowel by one hour.The gallbladder was not visualized at 1 hour.Delayed images are unchanged. IMPRESSION: 1.Findings compatible with acute cholecystitis and/or cystic duct obstruction. 2.The common bile duct is patent. [facility]-[id number] Procedure Note [facility], Radiology Results Incoming - 07/13/2017 3:23 PM CDT PROCEDURE: NM HEPATOBILIARY (HIDA SCAN) INDICATION: Abdominal pain. TECHNIQUE: The patient was injected with 5 mCi of Tc-99m Choletec, IV. Dynamic planar images of the abdomen were acquired for 1 hour. Delayed images were obtained at 4 hours. FINDINGS: Tracer is seen within small bowel by one hour. The gallbladder was not visualized at 1 hour. Delayed images are unchanged. IMPRESSION: 1. Findings compatible with acute cholecystitis and/or cystic duct obstruction. 2. The common bile duct is patent. [facility]-[id number] * Lipase level (07/13/2017 4:00 AM) Component Value Ref Range Lipase 18 13 - 60 U/L Specimen Performing Laboratory Plasma specimen [facility] DEPARTMENT OF PATHOLOGY AND GENOMIC MEDICINE [address] [place] [address] * Amylase level (07/13/2017 4:00 AM) Component Value Ref Range Amylase 22 13 - 53 U/L Specimen Performing Laboratory Plasma specimen [facility] DEPARTMENT OF PATHOLOGY AND GENOMIC MEDICINE [address] [place] [address] * Lipid panel (07/13/2017 4:00 AM) Only the most recent of 2 results within the time period is included. Component Value Ref Range Cholesterol 95 <200 mg/dL Triglycerides 73 <150 mg/dL HDL cholesterol 23 (L) >40 mg/dL LDL cholesterol 54Comment: Result obtained by direct LDL <100 mg/dL measurement Lipid panel SeeBelow interpretation Comment: Total Cholesterol (mg/dL) <200 Desirable 200-239 Borderline-high >=240 High Triglycerides (mg/dL) <150 Normal 150-199 Borderline-high 200-499 High >=500 Very high HDL Cholesterol (mg/dL) <40 Low (male) <40 Low (female) LDL Cholesterol (mg/dL) <100 Optimal 100-129 Near or above optimal 130-159 Borderline-high 160-189 High >=190 Very high Risk Catergories that modify LDL goals. Risk Catergories LDL goal (mg/dL) CHD and CHD risk equivalent <100 (10-year risk >20%) Multiple (2+) risk factors <130 (10-year risk=<20%) 0-1 risk factors <160 (<10-year risk) Defining levels of lipids in metabolic syndrome Triglycerides >=150 mg/dL HDL Cholesterol Men <40 mg/dL Women <40 mg/dL Non-HDL cholesterol is a second target for therapy in persons with high triglycerides (>=200 mg/dL) Specimen Performing Laboratory Plasma specimen [facility] DEPARTMENT OF PATHOLOGY AND GENOMIC MEDICINE [address] [place] [address] * US Gallbladder (07/13/2017 12:54 AM) Specimen [facility] [address] [place] [address] Narrative EXAMINATION:US GALLBLADDER CLINICAL HISTORY:Cholecystitis COMPARISON:None. FINDINGS: Gallbladder: The gallbladder is without evidence of calculi. Comet tail artifact is noted at the gallbladder wall. The gallbladder wall thickened. No pericholecystic fluid. CBD:4 mm , within normal limits. Portal vein: The portal vein demonstrates normal hepatopedal flow. The portal vein measures 0.8 cm. IMPRESSION: 1. Gallbladder adenomyomatosis. 2. No gallstones visualized. Common bile duct sonographically within normal limits. [facility]-[id number] Procedure Note Interface, Radiology Results Incoming - 07/13/2017 1:02 AM CDT EXAMINATION: US GALLBLADDER CLINICAL HISTORY: Cholecystitis COMPARISON: None. FINDINGS: Gallbladder: The gallbladder is without evidence of calculi. Comet tail artifact is noted at the gallbladder wall. The gallbladder wall thickened. No pericholecystic fluid. CBD: 4 mm , within normal limits. Portal vein: The portal vein demonstrates normal hepatopedal flow. The portal vein measures 0.8 cm. IMPRESSION: 1. Gallbladder adenomyomatosis. 2. No gallstones visualized. Common bile duct sonographically within normal limits. [facility]-[id number] * ECG ED Preliminary Interpretation - NOT AN ORDER (07/12/2017 10:18 PM) Only the most recent of 2 results within the time period is included. Narrative [facility] MD Stacey 07/12/2017 10:18 PM ECG ED Preliminary Interpretation - Not an Order Performed by: SANDRA BANDA Authorized by: CHA IBARRA ECG reviewed by ED Physician in the absence of a army officer: yes Previous ECG: Previous ECG:Compared to current Comparison ECG info:05/05/2017 02:54 Similarity:No change Interpretation: Interpretation: abnormal Rate: ECG rate:93 bpm ECG rate assessment: normal Rhythm: Rhythm: sinus rhythm Ectopy: Ectopy: none QRS: QRS axis:Left Conduction: Conduction: normal ST segments: ST segments:Non-specific T waves: T waves: non-specific Other findings: Other findings: MAI * Cv ecg exercise stress (no imaging) (05/05/2017 3:06 PM) Component Value Ref Range Resting HR 75 Resting BP Peak MET Achieved 1.0 Protocol Name REGADENO Time in Exercise Phase 00:01:00 Max Heart Rate 100 Max Predicted Heart Rate 165 Target HR Formula (220 - Age)*100% Test Indication CHEST PAIN Arrhy During Ex ECG Interp Before EX ECG Interp During Ex Ex Summary Comment Overall HR Response to Exercise Overall BP Response To Exercise Reason for Termination Stress Test Impression Waveform interpreted in report associated with image study. No interpretation is provided as part of this Stress ECG report.- Specimen Performing Laboratory [facility] [address] [place] [address] * Nm myocardial perfusion (05/05/2017 8:17 AM) Specimen Performing Laboratory [facility] [address] [place] [address] Narrative Nuclear Cardiology and Cardiac CT [address] [place] [address] Myocardial Perfusion Imaging Report Stress ECG tracings are available in MUSE, EPIC and CV Web All ECG interpretations are included in this report Pat.Name:Beatris ISAAC.ID:[id number] St.Date: 05/05/2017Refer.MD:MARCOS PRIDE MD Exam Time: 8:17:00 AM Study Type:Myocardial Perfusion Imaging Height:70inWeight:285lb BSA: 2.43 m2 DOBAge:1960 ,56Y Sex: MALEBP: 142/86 HR:73 bpmNuclear Tech:MONAE Rebolledo Pat. Stat.:Inpatient Room:[facility] Nuclear Event ID:[id number] Order ID:[id number] Reason for Study:Chest pain, unspecified* History / Clinical:Congestive heart failure, Coronary artery disease, Hyperlipidemia, Hypertension, Obesity Procedures:Two Day Stress / Rest Race:-[place] Risk Factors:Known Coronary Atherosclerosis, Hyperlipidemia, Hypertension, Obesity Clinical Symptoms:Regadenoson Physical Exam:S1, S2, clear lungs Surgery: Serum K+ Date,3.5/05/05/17, Troponin I Date,1)neg x 2 -05/05/17 2)/ 3)/, BUN/Creatinine Date,07/29.0/05/05/17 Medications:Clonidine, Coreg, Lipitor, Lisinopril, Hydralazine, Imdur SUMMARY: SCINTIGRAPHIC RESULTS Perfusion Defect Size (% LV) 0% Total 0% Ischemia0% Scar Left Ventricular Perfusion Results There is normal tracer distribution throughout the myocardium during stress and rest. Gated SPECT Results The post stress left ventricular ejection fraction is 26% with severe hypokinesis of all hypoperfused sadler.Left ventricular end-diastolic volume is 312 ml; end-systolic volume is232 ml.The left ventricle is severely enlarged at stress and rest. Conclusion Normal regadenoson Tc-99m tetrofosmin myocardial perfusion study. The left ventricular ejection fraction is normal.__ LV and RV hypertrophy are present.__ LV and RV dilatation are present. Study Quality/Artifacts The study quality is good. Comparison to Previous Study A CTA studywas perfomed on 01/31/2017 with no significant coronary stenosis. STRESS: Baseline Vital Signs:Intervention: Regadenoson 0.4mg /5ml IV over 10 seconds followed by radiotracer injection and 5ml saline flush ECG: Normal Sinus Rhythm HR:73 BP:142/86 Stress Test Results: Target HR: 140 Symptoms and Complications: Arrhythmias: None Terminated: As per Regadenoson protocol Symptoms:Shortness of breath Complications: none Stress ECG Interp: No ischemic ST segment change occurred with stress. Signed 05/06/2017 10:59 AM Carlton Wing MD Procedure Note Interface, Radiology Results In - 05/06/2017 10:59 AM CDT Nuclear Cardiology and Cardiac CT [address] [place] [address] Myocardial Perfusion Imaging Report Stress ECG tracings are available in goAct, [employer] and [employer]roid All ECG interpretations are included in this report Pat.Name: SAM ISAAC Pat.ID: [id number] .Date: 05/05/2017 Refer.MD: MARCOS PRIDE MD Exam Time: 8:17:00 AM Study Type:Myocardial Perfusion Imaging Height: 70in Weight: 285lb BSA: 2.43 m2 Age: 2 1960,56Y Sex: MALE BP: 142/86 HR: 73 bpm Nuclear Tech:MONAE Rebolledo Pat. Stat.:Inpatient Room: [facility] Nuclear Event ID:[id number] Order ID: [id number] Reason for Study:Chest pain, unspecified* History / Clinical:Congestive heart failure, Coronary artery disease, Hyperlipidemia, Hypertension, Obesity Procedures:Two Day Stress / Rest Race: -[place] Risk Factors:Known Coronary Atherosclerosis, Hyperlipidemia, Hypertension, Obesity Clinical Symptoms:Regadenoson Physical Exam:S1, S2, clear lungs Surgery: Serum K+ Date, 3.505/05/17, Troponin I Date, 1)neg x -05/05/17 2)/ 3)/, BUN/Creatinine Date, 07/29.005/05/17 Medications:Clonidine, Coreg, Lipitor, Lisinopril, Hydralazine, Imdur SUMMARY: SCINTIGRAPHIC RESULTS Perfusion Defect Size (% LV) 0% Total 0% Ischemia 0% Scar Left Ventricular Perfusion Results There is normal tracer distribution throughout the myocardium during stress and rest. Gated SPECT Results The post stress left ventricular ejection fraction is 26% with severe hypokinesis of all hypoperfused sadler. Left ventricular end-diastolic volume is 312 ml; end-systolic volume is 232 ml. The left ventricle is severely enlarged at stress and rest. Conclusion Normal regadenoson Tc-99m tetrofosmin myocardial perfusion study. The left ventricular ejection fraction is normal. __ LV and RV hypertrophy are present. __ LV and RV dilatation are present. Study Quality/Artifacts The study quality is good. Comparison to Previous Study A CTA study was perfomed on 01/31/2017 with no significant coronary stenosis. STRESS: Baseline Vital Signs: Intervention: Regadenoson 0.4mg/5ml IV over 10 seconds followed by radiotracer injection and 5ml saline flush ECG: Normal Sinus Rhythm HR: 73 BP: 142/86 Stress Test Results: Target HR: 140 Symptoms and Complications: Arrhythmias: None Terminated: As per Regadenoson protocol Symptoms: Shortness of breath Complications: none Stress ECG Interp: No ischemic ST segment change occurred with stress. Signed 05/06/2017 10:59 AM Carlton Wing MD * XR Chest 2 Vw (05/03/2017 4:57 PM) Only the most recent of 2 results within the time period is included. Specimen Performing Laboratory [facility] [address] [place] [address] Narrative Examination:XR CHEST 2 VW Clinical history:"R06.02 Shortness of breath, r06.02" Comparison:04/15/2017 IMPRESSION: There is improved aeration of both lung bases.Faint left anterior, basilar pleural thickening versus a small loculated left pleural effusion cannot be excluded.Otherwise, there are no apparent infiltrates or pneumothoraces.The borderline prominent cardiomediastinal silhouette and the imaged bones are stable in appearance. [facility]-[id number] Procedure Note Hm Interface, Radiology Results Incoming - 05/03/2017 5:55 PM CDT Examination: XR CHEST 2 VW Clinical history: "R06.02 Shortness of breath, r06.02" Comparison: 04/15/2017 IMPRESSION: There is improved aeration of both lung bases. Faint left anterior, basilar pleural thickening versus a small loculated left pleural effusion cannot be excluded. Otherwise, there are no apparent infiltrates or pneumothoraces. The borderline prominent cardiomediastinal silhouette and the imaged bones are stable in appearance. [facility]-[id number] * CT Angiogram Pe Chest (04/15/2017 5:32 AM) Specimen Performing Laboratory [facility] [address] [place] [address] Narrative EXAMINATION:CT ANGIOGRAM PE CHEST CLINICAL HISTORY: eval for pe TECHNIQUE:CT angiographic images of the chest were obtained during intravenous administration of iodinated contrast. Computerized reformatted images and 3-D MIP images were also obtained and archived (CT pulmonary embolus protocol).CT scans are performed using radiation dose reduction techniques.Technical factors are evaluated and adjusted to ensure appropriate moderation of exposure. Automated dose management technology is applied to adjust radiation exposure while achieving a diagnostic quality image. COMPARISON:None. Findings: There are no filling defects within the pulmonary arterial system to suggest a pulmonary embolus. No dissection or aneurysm is seen. Mild bilateral basilar subsegmental atelectasis is seen. No consolidation or pleural effusion is seen. No pulmonary mass or nodule is seen. No mediastinal hematoma or lymphadenopathy is seen. The visualized upper abdomen shows small focal area of fat stranding surrounding the splenic flexure with some scattered diverticuli. This is suspicious for diverticulitis. IMPRESSION: 1. No evidence of pulmonary embolus. 2. Mild bibasilar subsegmental atelectasis. 3. Possible diverticulitis at the splenic flexure but not fully imaged on this study. Dr. Neely was informed by Dr. Garcia of these findings on 04/15/2017 3:24 AM and acknowledged understanding of the findings. [facility]-[id number] Procedure Note Hm Interface, Radiology Results Incoming - 04/15/2017 6:05 AM CDT EXAMINATION: CT ANGIOGRAM PE CHEST CLINICAL HISTORY: eval for pe TECHNIQUE: CT angiographic images of the chest were obtained during intravenous administration of iodinated contrast. Computerized reformatted images and 3-D MIP images were also obtained and archived (CT pulmonary embolus protocol). CT scans are performed using radiation dose reduction techniques. Technical factors are evaluated and adjusted to ensure appropriate moderation of exposure. Automated dose management technology is applied to adjust radiation exposure while achieving a diagnostic quality image. COMPARISON: None. Findings: There are no filling defects within the pulmonary arterial system to suggest a pulmonary embolus. No dissection or aneurysm is seen. Mild bilateral basilar subsegmental atelectasis is seen. No consolidation or pleural effusion is seen. No pulmonary mass or nodule is seen. No mediastinal hematoma or lymphadenopathy is seen. The visualized upper abdomen shows small focal area of fat stranding surrounding the splenic flexure with some scattered diverticuli. This is suspicious for diverticulitis. IMPRESSION: 1. No evidence of pulmonary embolus. 2. Mild bibasilar subsegmental atelectasis. 3. Possible diverticulitis at the splenic flexure but not fully imaged on this study. Dr. Neely was informed by Dr. Garcia of these findings on 04/15/2017 3:24 AM and acknowledged understanding of the findings. [facility]-[id number] * Cardiac mri heart fx only noncontrast (03/09/2017 2:26 PM) Specimen Performing Laboratory [facility] [address] [place] [address] [facility] CMR Report Patient Patient Name: SAM ISAAC Patient : 1960 Scan Date:2017-03-09 13:35:56 Finalized and signed by Carlton Wing M.D. (uid:34) 15:43: 54. SUMMARY 1.Moderate RA enlargement.Mild LV and moderate RV enlargement. NO intracardiac thrombus or mass. 2.Moderate to severe globally depressed LV systolic function (LVEF 32%). Severely depressed RV systolic function (RVEF 30%). 3.NO contrast given.Late gadolinium enhancement not assessed. 4.Mild mitral regurgitation.Mild tricuspid regurgitation. 5.The thoracic aorta is of normal caliber without stenosis, aneurysm, or dissection. Normal pulmonary venous anatomy. Compared with the study of 2016, there has been interval decline in bi- venticular function. CORE EXAM MEASUREMENTS VOLUMETRIC ANALYSIS . . || LV | Reference| RV | Reference| +------+ + + + + | EDV| 269.2 ml |(147-230) | 297.5 ml |(140-249) | | ESV| 182.9 ml |(36-88) | 208.3 ml |(31-100)| | CO | 6.82 L/min || 7.05 L/min | | | MASS | 310.8 g|(135-216) || | | SV | 86.3 ml|(97-154)| 89.2 ml|(90-166)| | EF | 32.06 %|(137-180) | 29.98 %|(126-187) | '------+ + + + ' HEART RATE:79 bpm LV DIMENSIONS WALL THICKNESS - ANTEROSEPTAL:0.8 cm WALL THICKNESS - INFEROLATERAL:0.9 cm LV MARIELA:6.6 cm LV ESD:5.6 cm LA DIMENSIONS (LV SYSTOLE) DIAMETER:3.1 cm AREA - 2 CHAMBER:29 cm^2 LENGTH - 2 CHAMBER:6.3 cm AREA - 4 CHAMBER:26 cm^2 LENGTH - 4 CHAMBER:6.5 cm VOLUME:101.73 ml AORTIC ROOT DIMENSIONS DIAMETER - ANNULUS:2.7 cm DIAMETER - SINUS OF VALSALVA:3.4 cm DIAMETER - SINOTUBULAR JUNCTION:2.9 cm EXTRACELLULAR VOLUME MEASUREMENT PRE-CONTRAST T1 MYOCARDIUM:1301 msec PRE-CONTRAST T1 LV CAVITY:1908 msec CONDENSED SUMMARY LV:Normal Wall Thickness. Cavity Size is MILDLY ENLARGED. No Mass/ Thrombus. RV:Normal Wall Thickness. Contractility is SEVERE GLOBALLY DECREASED. Cavity Size is MODERATELY ENLARGED. No Mass/Thrombus. No Pacemaker/ Defibrillator Wire. IVS:Normal Interventricular Septum. LA:Cavity Size is Normal. No Mass/Thrombus. IAS:Normal Interatrial Septum. RA:Cavity Size is Normal. No Mass/Thrombus. No Additional Findings. No Pacemaker/Defibrillator Wire. PER:Normal Pericardium. No Effusion. No Diastolic Collapse. PE:No Pleural Effusion. AV:Trileaflet. MILD Aortic Regurgitation. No Aortic Stenosis. TV:Normal Leaflets. No Tricuspid Regurgitation. No Tricuspid Stenosis. MV:Normal Leaflets. MILD Mitral Regurgitation. No Mitral Stenosis. PV:Normal Leaflets. No Pulmonic Regurgitation. No Pulmonic Stenosis. 17 SEGMENT . . | LV Segments| Wall Motion | Hyperenhancement | Stress Perfusion | Interpretation | + + + + +---- + | Base Anterior| Mild/Mod Hypo | ||| | Base Anteroseptal| Mild/Mod Hypo || || | Base Inferoseptal| Mild/Mod Hypo || || | Base Inferior| Mild/Mod Hypo | ||| | Base Inferolateral | Mild/Mod Hypo || || | Base Anterolateral | Mild/Mod Hypo || || | Mid Anterior | Mild/Mod Hypo | ||| | Mid Anteroseptal | Mild/Mod Hypo || || | Mid Inferoseptal | Mild/Mod Hypo || || | Mid Inferior | Mild/Mod Hypo | ||| | Mid Inferolateral| Mild/Mod Hypo || || | Mid Anterolateral| Mild/Mod Hypo || || | Apical Anterior| Mild/Mod Hypo || || | Apical Septal| Mild/Mod Hypo | ||| | Apical Inferior| Mild/Mod Hypo || || | Apical Lateral | Mild/Mod Hypo || || | [place] | Mild/Mod Hypo | ||| + + + + +---- + | RV Segments| Wall Motion | Hyperenhancement | Stress Perfusion | Interpretation | + + + + +---- + | RV Basal Anterior| Severe Hypo || || | RV Basal Inferior| Severe Hypo || || | RV Mid | Severe Hypo | ||| | RV Apical| Severe Hypo | ||| ' + + + +---- ' VASCULAR SCAN INFO GENERAL SEDATION SEDATION USED?:No CONTRAST AGENT FEMALE:No OR BLACK:No LAB RESULT HEMATOCRIT LEVEL:46.3 % HEMATOCRIT DATE:2017-03-09 00:00:00 VITALS HEIGHT:70 in HEIGHT:177.8 cm BODY WEIGHT:270 lbs BODY WEIGHT:122.47 kgs BSA::2.37 m^2 SYSTOLIC BP:130 mmHg DIASTOLIC BP:76 mmHg HEART RATE:82 BPM HEART RHYTHM:Sinus Rhythm PULSE SEQUENCE PULSE SEQUENCES:Single-Shot SSFP, IR SSFP - Single Shot, Single Shot BB MICHEAL, SSFP Cine, Phase Contrast Velocity Mapping SETUP TYPE:Clinical INPATIENT:Yes LOCATION:[facility] INCOMPLETE SCAN:No REASON(S) FOR SCAN:CHF/Cardiomyopathy REFERRING PHYSICIAN:1) Marcos Neumann MD ATTENDING PHYSICIAN:Carlton Wing MD TECHNOLOGIST:Chiara Mcnulty [facility] ASSISTANTS:1) Ramiro Avila 2) Brittany CRAIG 3) MD MIMI Garcia Patient Account [id number] CPT Codes 29817, [ , ]39095 ICD10 Codes I42.8 Procedure Note Interface, Radiology Results In - 03/09/2017 3:44 PM CDT [facility] CMR Report Patient Patient Name: SAM ISAAC Patient : 1960 Scan Date: 2017-03-09 13:35:56 Finalized and signed by Carlton Wing M.D. (uid:34) 15:43:54. SUMMARY 1. Moderate RA enlargement. Mild LV and moderate RV enlargement. NO intracardiac thrombus or mass. 2. Moderate to severe globally depressed LV systolic function (LVEF 32%). Severely depressed RV systolic function (RVEF 30%). 3. NO contrast given.Late gadolinium enhancement not assessed. 4. Mild mitral regurgitation.Mild tricuspid regurgitation. 5. The thoracic aorta is of normal caliber without stenosis, aneurysm, or dissection. Normal pulmonary venous anatomy. Compared with the study of 2016, there has been interval decline in bi- venticular function. CORE EXAM MEASUREMENTS VOLUMETRIC ANALYSIS . . | | LV | Reference | RV | Reference | +------+ + + + + | EDV | 269.2 ml | (147-230) | 297.5 ml | (140-249) | | ESV | 182.9 ml | (36-88) | 208.3 ml | (31-100) | | CO | 6.82 L/min | | 7.05 L/min | | | MASS | 310.8 g | (135-216) | | | | SV | 86.3 ml | (97-154) | 89.2 ml | (90-166) | | EF | 32.06 % | (137-180) | 29.98 % | (126-187) | '------+ + + + ' HEART RATE: 79 bpm LV DIMENSIONS WALL THICKNESS - ANTEROSEPTAL: 0.8 cm WALL THICKNESS - INFEROLATERAL: 0.9 cm LV MARIELA: 6.6 cm LV ESD: 5.6 cm LA DIMENSIONS (LV SYSTOLE) DIAMETER: 3.1 cm AREA - 2 CHAMBER: 29 cm^2 LENGTH - 2 CHAMBER: 6.3 cm AREA - 4 CHAMBER: 26 cm^2 LENGTH - 4 CHAMBER: 6.5 cm VOLUME: 101.73 ml AORTIC ROOT DIMENSIONS DIAMETER - ANNULUS: 2.7 cm DIAMETER - SINUS OF VALSALVA: 3.4 cm DIAMETER - SINOTUBULAR JUNCTION: 2.9 cm EXTRACELLULAR VOLUME MEASUREMENT PRE-CONTRAST T1 MYOCARDIUM: 1301 msec PRE-CONTRAST T1 LV CAVITY: 1908 msec CONDENSED SUMMARY LV:Normal Wall Thickness. Cavity Size is MILDLY ENLARGED. No Mass/Thrombus. RV:Normal Wall Thickness. Contractility is SEVERE GLOBALLY DECREASED. Cavity Size is MODERATELY ENLARGED. No Mass/Thrombus. No Pacemaker/Defibrillator Wire. IVS:Normal Interventricular Septum. LA:Cavity Size is Normal. No Mass/Thrombus. IAS:Normal Interatrial Septum. RA:Cavity Size is Normal. No Mass/Thrombus. No Additional Findings. No Pacemaker/Defibrillator Wire. PER:Normal Pericardium. No Effusion. No Diastolic Collapse. PE:No Pleural Effusion. AV:Trileaflet. MILD Aortic Regurgitation. No Aortic Stenosis. TV:Normal Leaflets. No Tricuspid Regurgitation. No Tricuspid Stenosis. MV:Normal Leaflets. MILD Mitral Regurgitation. No Mitral Stenosis. PV:Normal Leaflets. No Pulmonic Regurgitation. No Pulmonic Stenosis. 17 SEGMENT . . | LV Segments | Wall Motion | Hyperenhancement | Stress Perfusion | Interpretation | + + + + +--- + | Base Anterior | Mild/Mod Hypo | | | | | Base Anteroseptal | Mild/Mod Hypo | | | | | Base Inferoseptal | Mild/Mod Hypo | | | | | Base Inferior | Mild/Mod Hypo | | | | | Base Inferolateral | Mild/Mod Hypo | | | | | Base Anterolateral | Mild/Mod Hypo | | | | | Mid Anterior | Mild/Mod Hypo | | | | | Mid Anteroseptal | Mild/Mod Hypo | | | | | Mid Inferoseptal | Mild/Mod Hypo | | | | | Mid Inferior | Mild/Mod Hypo | | | | | Mid Inferolateral | Mild/Mod Hypo | | | | | Mid Anterolateral | Mild/Mod Hypo | | | | | Apical Anterior | Mild/Mod Hypo | | | | | Apical Septal | Mild/Mod Hypo | | | | | Apical Inferior | Mild/Mod Hypo | | | | | Apical Lateral | Mild/Mod Hypo | | | | | [place] | Mild/Mod Hypo | | | | + + + + +--- + | RV Segments | Wall Motion | Hyperenhancement | Stress Perfusion | Interpretation | + + + + +--- + | RV Basal Anterior | Severe Hypo | | | | | RV Basal Inferior | Severe Hypo | | | | | RV Mid | Severe Hypo | | | | | RV Apical | Severe Hypo | | | | ' + + + +---- ' VASCULAR SCAN INFO GENERAL SEDATION SEDATION USED?: No CONTRAST AGENT FEMALE: No OR BLACK: No LAB RESULT HEMATOCRIT LEVEL: 46.3 % HEMATOCRIT DATE: 2017-03-09 00:00:00 VITALS HEIGHT: 70 in HEIGHT: 177.8 cm BODY WEIGHT: 270 lbs BODY WEIGHT: 122.47 kgs BSA:: 2.37 m^2 SYSTOLIC BP: 130 mmHg DIASTOLIC BP: 76 mmHg HEART RATE: 82 BPM HEART RHYTHM: Sinus Rhythm PULSE SEQUENCE PULSE SEQUENCES: Single-Shot SSFP, IR SSFP - Single Shot, Single Shot BB MICHEAL, SSFP Cine, Phase Contrast Velocity Mapping SETUP TYPE: Clinical INPATIENT: Yes LOCATION: [facility] INCOMPLETE SCAN: No REASON(S) FOR SCAN: CHF/Cardiomyopathy REFERRING PHYSICIAN: 1) Marcos Neumann MD ATTENDING PHYSICIAN: Carlton Wing MD TECHNOLOGIST: Chiara CORRALES ASSISTANTS: 1) Ramiro Avila 2) Brittany CRAIG 3) Gregorio Coe MD BILLING Patient Account [id number] CPT Codes 31166, [ , ]10765 ICD10 Codes I42.8 * Homocystine, plasma (03/08/2017 9:14 AM) Component Value Ref Range Homocysteine 6.0 0.0 - 15.0 umol/L Comment: The risk for coronary vascular disease increases progressively with homocysteine concentration. A 3.4 times greater risk is associated with a homocysteine concentration of greater than 15.8 umol/L as compared to a concentration below 14.1 umol/L. Specimen Performing Laboratory Plasma specimen [facility] DEPARTMENT OF PATHOLOGY AND GENOMIC MEDICINE [address] [place] [address] Narrative CMP,MG added and read back to Nicolasa Black in F11 03/08/2017 13:21 LMID. * Vitamin D 25 hydroxy level (03/08/2017 9:14 AM) Component Value Ref Range Vitamin D, 25-hydroxy 29.3 (L) 30.0 - 150.0 ng/mL Comment: This assay reports the sum of 25-hydroxy vitamin D3 and 25-hydroxy vitamin D2. Reference range: 0-17 years: Deficiency: less than 20ng/mL Optimum level: greater than or equal to 20 ng/mL. 18 years and older: Deficiency: less than 20ng/mL Insufficiency: 20-29 ng/mL Optimum Level: 30-80 ng/mL The assay reportable range is 0.0-96.0 ng/mL. Levels higher than 150 ng/mL may be associated with toxicity. If toxicity is clinically suspected and the reported result is >96.0 ng/mL, contact lab for alternative methods to obtain a definitive level. If separate quantitation of 25-hydroxy vitamin D3 and 25-hydroxy vitamin D2 is needed, please contact lab for alternative methods. Specimen Performing Laboratory Blood [facility] DEPARTMENT OF PATHOLOGY AND GENOMIC MEDICINE [address] [place] [id number] Narrative CMP,MG added and read back to Nicolasa Offor in 03/08/2017 13:21 LMID. * C-reactive protein (03/08/2017 9:14 AM) Component Value Ref Range CRP 0.35 0.00 - 0.50 mg/dL Specimen Performing Laboratory Plasma specimen [facility] DEPARTMENT OF PATHOLOGY AND [facility] MEDICINE [address] [place] [address] Narrative CMP,MG added and read back to Nicolasa Offor in 03/08/2017 13:21 LMID. * T3 (03/08/2017 9:14 AM) Component Value Ref Range T3 72 (L) 80 - 200 ng/dL Specimen Performing Laboratory Plasma specimen [facility] DEPARTMENT OF PATHOLOGY AND GENOMIC MEDICINE [address] [place] [address] Narrative CMP,MG added and read back to Nicolasa Offor in 03/08/2017 13:21 LMID. * T4, free (03/08/2017 9:14 AM) Component Value Ref Range T4, free 1.0 0.9 - 1.7 ng/dL Specimen Performing Laboratory Plasma specimen [facility] DEPARTMENT OF PATHOLOGY AND GENOMIC MEDICINE [address] [place] [address] Narrative CMP,MG added and read back to Nicolasa Offor in 03/08/2017 13:21 LMID. * Folate level (03/08/2017 9:14 AM) Component Value Ref Range Folate 16.8 4.8 - 24.2 ng/mL Specimen Performing Laboratory Serum [facility] DEPARTMENT OF PATHOLOGY AND GENOMIC MEDICINE [address] [place] [address] Narrative CMP,MG added and read back to in 1 03/08/2017 13:21 LMID. * Vitamin B12 level (03/08/2017 9:14 AM) Component Value Ref Range Vitamin B12 753 211 - 946 pg/mL Comment: Significant overlap exists between normal and deficiency states. However, most patients with deficiencies will have Serum B12 <200 pg/mL. Specimen Performing Laboratory Serum [facility] DEPARTMENT OF PATHOLOGY AND GENOMIC MEDICINE [address] [place] [address] Narrative CMP,MG added and read back to in [facility] 03/08/2017 13:21 LMID. * CT Head Wo Contrast (03/07/2017 4:42 PM) Specimen Performing Laboratory [facility] [address] [place] [address] Narrative EXAMINATION: CT HEAD WO CONTRAST COMPARISON: January 22, 2017 CLINICAL HISTORY Somnolence. TECHNIQUE: Non-contrast CT scan of the head with thin-section contiguous transaxial images from the skull base to the vertex. CT scans are performed using radiation dose reduction techniques. Technical factors are evaluated and adjusted to ensure appropriate moderation of exposure. Automated dose management technology is applied to adjust radiation exposure while achieving a highly diagnostic quality image. FINDINGS: Nonenhanced cranial CT was performed at approximately 1636 hours. There is suboptimal image quality. The ventricles and subarachnoid spaces are diffusely dilated. There is no gross acute hemorrhage or midline shift. There are no gross interval changes. IMPRESSION: Subcutaneous optimal image quality. Stable generalized involutional changes. No gross hemorrhage [id number] Procedure Note Interface, Radiology Results Incoming - 03/07/2017 4:48 PM CDT EXAMINATION: CT HEAD WO CONTRAST COMPARISON: January 22, 2017 CLINICAL HISTORY Somnolence. TECHNIQUE: Non-contrast CT scan of the head with thin-section contiguous transaxial images from the skull base to the vertex. CT scans are performed using radiation dose reduction techniques. Technical factors are evaluated and adjusted to ensure appropriate moderation of exposure. Automated dose management technology is applied to adjust radiation exposure while achieving a highly diagnostic quality image. FINDINGS: Nonenhanced cranial CT was performed at approximately 1636 hours. There is suboptimal image quality. The ventricles and subarachnoid spaces are diffusely dilated. There is no gross acute hemorrhage or midline shift. There are no gross interval changes. IMPRESSION: Subcutaneous optimal image quality. Stable generalized involutional changes. No gross hemorrhage [facility]-[id number] * Sputum culture (03/05/2017 11:35 PM) Component Value Ref Range Sputum culture isolate Normal oral sienna isolated. Comment: Specimen Information Specimen Source: Sputum Specimen Site: Expectorated Specimen Performing Laboratory Sputum - Expectorated [facility] DEPARTMENT OF PATHOLOGY AND GENOMIC MEDICINE [address] [place] [id number] * Gram stain (03/05/2017 11:35 PM) Component Value Ref Range Gram stain isolate Rare WBC's Rare Gram positive rods Many Gram positive cocci in pairs Comment: Specimen Information Specimen Source: Sputum Specimen Site: Expectorated Specimen Performing Laboratory Sputum - Expectorated [facility] DEPARTMENT OF PATHOLOGY AND GENOMIC MEDICINE [address] [place] [address] after 02/02/2017 Insurance Payer Benefit Subscriber ID Type Phone Address Plan / Group [employer] MEDICAID [employer] xxxxxxxxx O [employer] [place] [phone]
--- OUTSIDE RECORDS SUMMARY | 2018-02-03 05:41 | XMS REPORT ---
Author Author [facility] Address Unknown Phone Unavailable Care Team Providers Care Principle Industrial Hygienist Name Role Phone GENARO AMADO Unavailable Unavailable Problems This patient has no known problems. Allergies, Adverse Reactions, Alerts This patient has no known allergies or adverse reactions. Medications This patient has no known medications. Results Test Description Test Time Test Comments Text Results Atomic Results Result Comments VQ LUNG SCAN VENT PERFUSION [place] [address] Patient Name: JEANCARLOS ISAAC NIMA MR #: [id number] : 1960 Age/Sex: 56/M Req #: [id number] [facility] Physician: GENARO AMADO MD Ordered by: Cielo Bedolla DITCH WORKER Report #: [id number] Location: MED/SURG3 Room/Bed: [facility] Procedure: [id number] NM/VQ LUNG SCAN VENT PERFUSION Exam Date: Exam Time: REPORT STATUS: Signed Ventilation/perfusion lung scan Clinical Information: SOB x 2 months Comparison: Chest radiograph 11/03/2017 Discussion: Xenon -133 gas 20 mCi was administered via inhalation. Dynamic images of the lungs in the posterior projection were obtained through single breath, equilibrium, and washout phases. A nonsegmental ventilation abnormality is seen in the LLL. There are no segmental ventilatory defects. Washout of tracer is diffusely delayed with air trapping in the left lung base. Perfusion images of the lungs were obtained in multiple projections following intravenous administration of approximately 6 mCi of Tc-99m MAA. A nonsegmental perfusion abnormality is seen in the LLL. Distribution of tracer activity otherwise is minimally irregular throughout the lungs. The contours of the lungs are well demarcated. There are no segmental perfusion defects of any size. The perfusion image in the posterior projection is well-matched to the ventilation images. The cardiomediastinal silhouette is unremarkable. Impression: 1. Scan findings represent a LOW probability for acute pulmonary embolic disease based on the PIOPED II criteria. 2. Large matched nonsegmental ventilation and perfusion abnormality in the left lower lobe suspect for parenchymal lung disease versus regional emphysema. CT chest may be warranted. Signed by: Dr. Alondra Cage M.D. on 11/06/2017 2:42 PM Dictated By: ALONDRA CAGE MD 1442 Transcribed By: HONEY on 11/06/17 1442 COPY TO: CIELO BEDOLLA DITCH WORKER CHEST SINGLE (NOT PORTABLE) [place] [address] Patient Name: JEANCARLOS ISAAC MR #: [id number] : 1960 Age/Sex: 56/M Req #: [id number] Adm Physician: Ordered by: ALVA PADILLA Report #: [id number] Location: ER Room/Bed: _ Procedure: [id number] DX/CHEST SINGLE (NOT PORTABLE) Exam Date: 11/03/17 Exam Time: 1318 REPORT STATUS: Signed EXAMINATION: Chest, CHEST SINGLE (NOT PORTABLE) INDICATION: Chest pain COMPARISON: None FINDINGS: LINES: Left chest cardiac device with lead projecting over the expected region of the right ventricle. Heart: Normal cardiac silhouette. Vascular: The pulmonary vasculature is within normal limits. Atherosclerotic calcifications of the aortic arch. Mediastinum: No mediastinal, hilar, or axillary mass or lymphadenopathy. Lungs: No parenchymal mass. No focal consolidation. Left lung base atelectasis. Pleura: No pleural effusion. No pneumothorax. Bones: No acute osseous abnormality. Degenerative changes of the thoracic spine. Soft tissues: Normal. Impression: No acute radiographic abnormality. Signed by: Dr. Eulalio Arroyo M.D. on 11/03/2017 1:31 PM Dictated By: EULALIO ARROYO MD 1331 COPY TO: ALVA PADILLA
[2018-02-03] MEDS ORDERED: ASPIRIN 81 MG CHEW TAB PO ONE (05:45)
[2018-02-03] MEDS ORDERED: ALBUTEROL/IPRATROPIUM 3 ML NEB NEB ONE (06:00)
[2018-02-03 06:29] LABS: BASOPHILS % 0.3 % (0.0-1.0); EOSINOPHILS # (AUTO) 0.2 (0.0-0.4); EOSINOPHILS % 1.7 % (0.0-6.0); HEMATOCRIT 39.5 % (38.2-49.6); HEMOGLOBIN 11.7 g/dL (14.0-18.0); LYMPHOCYTES # (AUTO) 3.5 (1.0-3.2); LYMPHOCYTES % 25.3 % (18.0-39.1); MEAN CORPUSCULAR HEMOGLOBIN 26.4 pg (28-32); MEAN CORPUSCULAR HGB CONC 29.6 g/dL (31-35); MONOCYTES # (AUTO) 0.8 (0.2-0.8); MONOCYTES % 5.6 % (4.4-11.3); NEUTROPHILS # (AUTO) 9.2 (2.1-6.9); NEUTROPHILS % 66.2 % (38.7-80.0); PLATELET COUNT 243 x10e3/uL (140-360); RED BLOOD COUNT 4.44 x10e6/uL (4.3-5.7); RED CELL DISTRIBUTION WIDTH 13.4 % (11.7-14.4)
[2018-02-03 06:35] LABS: INR 0.96; PARTIAL THROMBOPLASTIN TIME 29.5 seconds (23.8-35.5)
[2018-02-03 06:44] LABS: ALANINE AMINOTRANSFERASE 52 IU/L (0-55); ALBUMIN 2.9 g/dL (3.5-5.0); ALBUMIN/GLOBULIN RATIO 0.6 (0.8-2.0); ALKALINE PHOSPHATASE 89 IU/L (40-150); ANION GAP 10.3 mmol/L (8-16); BLOOD UREA NITROGEN 19 mg/dL (7-26); BUN/CREATININE RATIO 15 (6-25); CALCIUM 9.2 mg/dL (8.4-10.2); CHLORIDE 93 mmol/L (98-107); CREATINE KINASE 271 IU/L (30-200); CREATININE, SERUM 1.25 mg/dL (0.72-1.25); EST GLOMERULAR FILTRATION RATE > 60 ML/MIN (60-); GLUCOSE 178 mg/dL (74-118); POTASSIUM 4.3 mmol/L (3.5-5.1); SODIUM 142 mmol/L (136-145)
--- NOTE | 2018-02-03 07:07 | Diagnostic Imaging Report ---
EXAMINATION: Chest, CHEST SINGLE (PORTABLE) INDICATION: Chest pain COMPARISON: None FINDINGS: LINES: Left chest cardiac device with lead projecting over the expected region of the right ventricle. Heart: Mildly enlarged cardiac silhouette.. Vascular: Central vascular congestion.. Mediastinum: No mediastinal, hilar, or axillary mass or lymphadenopathy. Lungs: No parenchymal mass. Bibasilar atelectasis. Pleura: Small left pleural effusion.. . Bones: No acute osseous abnormality. Degenerative changes of the thoracic spine. Soft tissues: Normal. Impression: 1. Low lung volumes with evidence of bibasilar atelectasis left greater than right. 2. Cardiomegaly with evidence of central vascular congestion. Signed by: Dr. Jorge Sutherland M.D. on 02/03/2018 7:03 AM
[2018-02-03 07:25] LABS: CARBON DIOXIDE 43 mmol/L (22-29)
[2018-02-03 08:30] LABS: ABG PH 7.37 (7.31-7.41)
[2018-02-03 08:31] LABS: ABG HCO3 43 mmol/L (23-28); ABG PCO2 76 mmHg (41-51); ABG PO2 92 mmHg (80-105)
[2018-02-03] MEDS ORDERED: FUROSEMIDE INJ 10 MG/ML 4 ML VIAL IV ONE (09:00)
== END 2018-02-03 09:16 | disposition home or self-care (01) ==
LOC: ER 05:37
DX: R07.89 Other chest pain (principal); I50.1 Left ventricular failure, unspecified; E11.9 Type 2 diabetes mellitus without complications; I25.10 Atherosclerotic heart disease of native coronary artery without angina pectoris; I10 Essential (primary) hypertension; F20.9 Schizophrenia, unspecified
CPT/HCPCS: 36415; 36600; 71045; 80053; 82550; 82553; 82805; 83880; 84484; 85025; 85610; 85730; 93005; 94640; 99284

== ENCOUNTER 2018-02-11 04:27 | Inpatient (IN) | payer OTHER ==
[~2018-02-11] VITALS: Ht 177.8 cm; Wt 131.1 kg
[2018-02-11] VITALS (8 sets, daily range): BP systolic 131–154; BP diastolic 79–103
--- OUTSIDE RECORDS SUMMARY | 2018-02-11 04:36 | XMS REPORT | Clinical Summary ---
Author Author [place] [facility] [place] [facility] Address Unknown Phone Unavailable Care Team Providers Care Towerman Name Role Phone Cristino Bryant DO PCP [...] Ep aicd implant single dual bi vent [[id number] (CPT )] 10/03/2017 Procedure Pass Procedural Cardiology 10/03/2017 Procedure Pass Procedural Cardiology 09/30/2017 Orders Only Transplant Siddhartha Summers RN Chronic systolic heart failure (Primary Dx) 09/29/2017 [facility] Cardiology Jacek Fuentes, Acute on chronic combined - Encounter DO systolic and diastolic 10/15/2017 Gina Ness PA congestive heart failure, Marcos Pride MD NYHA class 4 (Primary Sudeep Maier O. 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 angina pectoris 08/30/2017 [facility] Cardiology Wilber Quiñones MD Acute on chronic - Encounter Marcos Pride MD congestive heart failure, 09/05/2017 unspecified congestive heart failure type (Primary Dx) 07/31/2017 [facility] Neurology Neil Patel Hypertension, - Encounter [...] LAPAROSCOPIC 07/13/2017 Procedure Pass General Surgery 07/12/2017 [facility] General Surgery Cha Ibarra MD Acute [...] breath Encounter MD Antoni 05/03/2017 Transcribe Access GiovanniMarcos Benedict Shortness of breath Orders MD Antoni (Primary Dx) 04/15/2017 [facility] Cardiology Emmanuel Neely DO Acute on chronic - Encounter Marcos Pride MD congestive heart failure, 04/17/2017 unspecified congestive heart failure type (Primary Dx); Chronic obstructive pulmonary disease, unspecified COPD type; Malignant hypertension; Hyperlipidemia, unspecified hyperlipidemia type 03/05/2017 [facility] Cardiology Morena CaputoRoula Celeste MD Acute on chronic systolic - Encounter Marcos Pride MD congestive heart failure 03/10/2017 Ninfa Curtis MD (Primary Dx); Chest pain, unspecified type; Essential hypertension; Smoker after 02/10/2017 Immunizations Name Dates Previously Given Next Due [...] Taken Blood Pressure 156/93 10/19/2017 9:19 AM PLATFORM STAPLER Pulse 85 10/19/2017 9:19 AM PLATFORM STAPLER Temperature 35.8 C (96.4 F) 10/19/2017 9:19 AM PLATFORM STAPLER Respiratory Rate 16 10/15/2017 3:44 PM PLATFORM STAPLER Oxygen Saturation 93% 10/15/2017 3:44 PM PLATFORM STAPLER Inhaled Oxygen - - Concentration Weight 136 kg (299 lb 12.8 oz) 10/19/2017 9:19 AM PLATFORM STAPLER Height 177.8 cm (5' 10") 10/19/2017 9:19 AM PLATFORM STAPLER Body Mass Index 43.02 10/19/2017 9:19 AM PLATFORM STAPLER Plan of Treatment Health Maintenance Due Date Last Done Comments FOOT EXAM 1971 OPHTHALMOLOGY EXAM 1971 COLONOSCOPY 2011 INFLUENZA VACCINE 05/29/2018 08/05/2017, 12/27/2016 Implants Implanted Type Area Tool Machine Setup Operator Device Expiration Model / Identifier Date Serial / Lot [place] Df4 Tachy Lead - Cardiac N/A: N/A [employer]ON 11/29/2021 [id number] / [id number] Pacing SCIENTIFIC- CRM / Implanted: Qty: 1 on 10/03/2017 by Leads or [id number] Abraham Barreto Jr., MD Electrodes or Accessorie s Dynagen El Icd Df4 Vr Defibrilla BOSTON D150 / Implanted: Qty: 1 on 10/03/2017 by tor ICD [employer]ENTIFIC [id number] / Abraham Barreto Jr., MD Devices [id number] Pins In Lumbar L4-L5 Procedures Procedure Name Priority Date/Time Associated Diagnosis Comments ECHOCARDIOGRAM 2D LIMITED STAT 10/04/2017 Results for this 4:25 PM PLATFORM STAPLER procedure are in the results section. EP AICD IMPLANT SINGLE Routine 10/03/2017 Results for this DUAL BI VENT 11:27 AM PLATFORM STAPLER procedure are in the results section. ECHOCARDIOGRAM 2D Routine 10/02/2017 Results for this COMPLETE W MMODE SPECTRAL 4:21 PM PLATFORM STAPLER procedure are in the COLOR DOPPLER (76420) results section. UT CRITICAL CARE, E/M Routine 09/30/2017 Results for this 30-74 MINUTES 12:25 AM PLATFORM STAPLER procedure are in the results section. UT CRITICAL CARE, E/M Routine 08/31/2017 Results for this 30-74 MINUTES 10:46 AM CDT procedure are in the results section. CONSULT CARDIAC REHAB Routine 08/08/2017 PHASE 1 12:05 PM CDT UT CRITICAL CARE, E/M Routine 08/01/2017 Results for this 30-74 MINUTES 8:54 AM CDT procedure are in the results section. UT AN ELECTIVE Routine 07/17/2017 ENDOTRACHEAL AIRWAY 8:36 AM CDT Procedure Note - Lizzy Salazar, PUBLICITY MANAGER - 07/17/2017 8:14 AM CDT Airway Date/Time: [...] procedure are in the results section. after 02/10/2017 Results * Estimated GFR (10/19/2017 10:00 AM) [...] and Americans. Specimen Performing Laboratory Plasma specimen [facility] DEPARTMENT OF PATHOLOGY AND GENOMIC MEDICINE [address] [place] [address] * B natriuretic peptide (10/19/2017 10:00 AM) Only the most recent of 21 results within the time period is included. Component Value Ref Range BNP 1,574 (H) 0 - 100 pg/mL Specimen Performing Laboratory Blood [facility] DEPARTMENT OF PATHOLOGY AND GENOMIC MEDICINE [address] [place] [address] * Magnesium level (10/19/2017 10:00 AM) Only the most recent of 27 results within the time period is included. Component Value Ref Range Magnesium 1.8 1.6 - 2.6 mg/dL Specimen Performing Laboratory Plasma specimen [facility] DEPARTMENT OF PATHOLOGY AND [address] [address] * Basic metabolic panel (10/19/2017 10:00 AM) [...] 10.2 mg/dL Specimen Performing Laboratory Plasma specimen [facility] DEPARTMENT OF PATHOLOGY AND [address] [address] * XR Chest 1 Vw Portable (10/15/2017 3:49 PM) Only the most recent of 13 results within the time period is included. Specimen Performing Laboratory [facility] [address] [place] [address] Narrative Examination:XR CHEST 1 VW PORTABLE Clinical history:"Pleural Effusions" Comparison:10/04/2017 IMPRESSION: There are no new alveolar opacities within either lung.Bibasilar opacities consistent with atelectasis versus small infiltrates appear unchanged. No pneumothoraces are identified. The cardiomediastinal silhouette is unchanged. The bones of the chest are unchanged. Cardiac pacer is again seen. [facility]-[id number] Procedure Note Interface, Radiology Results Incoming - 10/15/2017 3:59 PM PLATFORM STAPLER Examination: XR CHEST 1 VW PORTABLE Clinical history: "Pleural Effusions" Comparison: 10/04/2017 IMPRESSION: There are no new alveolar opacities within either lung. Bibasilar opacities consistent with atelectasis versus small infiltrates appear unchanged. No pneumothoraces are identified. The cardiomediastinal silhouette is unchanged. The bones of the chest are unchanged. Cardiac pacer is again seen. [facility]-[id number] * POC glucose (10/15/2017 11:38 AM) Only the most recent of 132 results within the time period is included. Component Value Ref Range POC glucose 248 (H) 65 - 99 mg/dL Comment: [facility] Notified RN Meter ID: [id number] Claims Coordinator: Gorge Hoffmann Specimen Performing Laboratory [facility] DEPARTMENT OF PATHOLOGY AND GENOMIC MEDICINE [address] [place] [address] * CBC with platelet and differential (10/14/2017 [...] (promyelocytes, myelocytes, metamyelocytes) Specimen Performing Laboratory Blood [facility] DEPARTMENT OF PATHOLOGY AND GENOMIC MEDICINE [address] [place] [address] * CT Chest Wo Contrast (10/10/2017 10:22 PM) Specimen Performing Laboratory [facility] [address] [place] [address] Narrative Examination:CT CHEST WO CONTRAST Clinical History: [...] the left lingular and bilateral lower lobes. [facility]-[id number] Procedure Note Interface, Radiology Results Incoming - 10/10/2017 10:53 PM PLATFORM STAPLER Examination: CT CHEST WO CONTRAST Clinical History: [...] the left lingular and bilateral lower lobes. [facility]-[id number] * Potassium level (10/10/2017 2:15 PM) Only the most recent of 5 results within the time period is included. Component Value Ref Range Potassium 5.0 3.5 - 5.0 mEq/L Specimen Performing Laboratory Plasma specimen [facility] DEPARTMENT OF PATHOLOGY AND GENOMIC MEDICINE [address] [place] [address] * NM Lung Ventilation Perfusion (10/08/2017 9:48 AM) Specimen Performing Laboratory [facility] [address] [place] [address] Narrative PROCEDURE:NM LUNG VENTILATION PERFUSION INDICATION:Evaluate for chronic PE. [...] be excluded based on this study, however. [facility]-[id number] Procedure Note Interface, Radiology Results Incoming - 10/08/2017 9:59 AM PLATFORM STAPLER PROCEDURE: NM LUNG VENTILATION PERFUSION INDICATION: Evaluate [...] excluded based on this study , however. [facility]-[id number] * Smear review (10/07/2017 4:15 AM) Only the most recent of 2 results within the time period is included. Component Value Ref Range Platelet slide review Isa slt decr Enlarged platelets Moderate (A) Specimen Performing Laboratory [facility] DEPARTMENT OF PATHOLOGY AND GENOMIC MEDICINE [address] [place] [address] * Urinalysis screen and microscopy, with reflex [...] UA 4 /LPF Specimen Performing Laboratory Urine [facility] DEPARTMENT OF PATHOLOGY AND GENOMIC MEDICINE [address] [place] [address] * Urine culture (10/06/2017 5:40 PM) Only the most recent of 6 results within the time period is included. Component Value Ref Range Urine culture SEE COMMENTComment: Bacteriuria screen negative. Specimen Performing Laboratory [facility] DEPARTMENT OF PATHOLOGY AND GENOMIC MEDICINE [address] [place] [address] * Blood culture, aerobic & anaerobic (10/06/2017 2:00 PM) Only the most recent of 3 results within the time period is included. Component Value Ref Range Blood culture isolate No growth after 5 days of incubation. Comment: Specimen Information Specimen Source: Blood Specimen Site: Forearm, left Specimen Performing Laboratory Blood - Forearm, left [facility] DEPARTMENT OF PATHOLOGY AND GENOMIC MEDICINE [address] [place] [address] * ECG 12 lead (10/06/2017 12:25 PM) Only the most recent of 11 results within the time period is included. Component Value Ref Range Ventricular rate 75 Atrial rate 75 UT interval 140 QRSD interval 118 QT interval 404 QTC interval 451 P axis 1 48 QRS axis 1 106 T wave axis 117 EKG impression Normal sinus rhythm-Right atrial enlargement-Rightward axis-Nonspecific intraventricular conduction delay-Nonspecific T wave abnormality-Abnormal ECG-In automated comparison with ECG of 04-OCT-2017 14:08,-No significant change was found- Specimen Performing Laboratory [facility] [address] [place] [address] * Echocardiogram 2d limited (10/04/2017 4:25 PM) Specimen Performing Laboratory [facility] [address] [place] [address] Narrative Echocardiography Report [address] [place] [address] Pat.Name:Beatris ISAAC.ID:[id number] .Date: 10/04/2017 Refer.MD:MARCOS PRIDE MD Exam Time: 4:59:00 PMStudy Type:Routine Echo Height:70inWeight:272lb BSA: 2.38 m2 DOBAge:1960 ,56Y Sex: MALEBP: 125/66 HR:77 bpmSonogrphr: Kaycee Ascencio RAINA Pat. Stat.:Inpatient Room:A938 Study Status:Final Echo Event ID:[id number] Order ID:[id number] Reason for Study:Myocardial Ischemia / Infarction - acute ches pain with suspected WI and nondiagnostic ECG with a resting ECHO [...] not well seen. MEASUREMENTS: 2D Parasternal Long Left Hand Ao An2.2 cmLVPWd 1.5 cm LVOT 2.4 cmLA Ds 3.9 cm LVIDd6 cmIndex 2.5 cm/m Ao Rtd 3.5 cm Index1.5 cm/m LVIDs4.7 cm LV Psjz553.8 g(122-174) LV%fs 22 % LVM Index 197.8 g/m2 IVSd 1.6 cmRWT 0.5 Signed 10/04/2017 05:34 PM Shania Mustafa M.D. Procedure Note Interface, Radiology Results In - 10/04/2017 5:34 PM [facility] Echocardiography Report [address] [facility], [place] [address], [place] [address] [facility]ly [facility].Name: SAM ISAAC Pat.ID: [id number] St.Date: 10/04/2017 Refer.MD: MARCOS PRIDE MD Exam Time: 4:59:00 PM Study Type:Routine Echo Height: 70in Weight: 272lb BSA: 2.38 m2 Age: 2 1960,56Y Sex: MALE BP: 125/66 HR: 77 bpm Sonogrphr: Kaycee Ascencio RDCS Pat. Stat.:Inpatient Room: [facility] Study Status:Final Echo Event ID:[id number] Order ID: [id number] Reason for Study:Myocardial Ischemia / Infarction - acute ches pain with suspected WI and nondiagnostic ECG with a resting ECHO [...] not well seen. MEASUREMENTS: 2D Parasternal Long Left Hand Ao An 2.2 cm LVPWd 1.5 cm [...] myocardial injury. Specimen Performing Laboratory Plasma specimen [facility] DEPARTMENT OF PATHOLOGY AND GENOMIC MEDICINE [address] [place] [address] * Partial thromboplastin time, activated (10/04/2017 2:22 PM) Only the most recent of 6 results within the time period is included. Component Value Ref Range PTT 23.3 23.0 - 36.0 sec Comment: PTT therapeutic range for unfractionated heparin is 61.0-112.0 seconds which corresponds to Anti-Xa 0.3-0.7 U/ml. Specimen Performing Laboratory Blood [facility] DEPARTMENT OF PATHOLOGY AND GENOMIC MEDICINE [address] [place] [address] * Prothrombin time with INR (10/04/2017 2:22 [...] vein thrombosis/pulmonary embolism. Specimen Performing Laboratory Blood [facility] DEPARTMENT OF PATHOLOGY AND [facility] MEDICINE [address] [place] [address] * Phosphorus level (10/04/2017 2:22 PM) Only the most recent of 13 results within the time period is included. Component Value Ref Range Phosphorus 2.3 (L) 2.4 - 4.5 mg/dL Specimen Performing Laboratory Plasma specimen [facility] DEPARTMENT OF PATHOLOGY AND [facility] MEDICINE [address] [place] [address] * ECG Pre/Post Op-Tomorrow (10/04/2017 11:53 AM) Component Value Ref Range Ventricular rate 78 Atrial rate 78 UT interval 144 QRSD interval 114 QT interval 400 QTC interval 456 P axis 1 44 QRS axis 1 143 T wave axis 110 EKG impression Normal sinus rhythm-Possible Left atrial enlargement-Right axis deviation-Abnormal ECG-In automated comparison with ECG of 29-SEP-2017 19:29,-QT has shortened- Specimen Performing Laboratory [facility] [address] [place] [address] * Cv electrophysiology procedure (10/03/2017 11:27 AM) Specimen Performing Laboratory [facility] [address] [place] [address] Narrative TITLE OF PROCEDURE: Single chamber defibrillator [...] a scalpel, cautery, and blunt dissection.Using the opzg-ocx-otlh technique and an introducer sheath, a defibrillation [...] right ventricular apical defibrillation lead is a [employer] Endotak [place]-G, model 0296, serial #[id number].Measured R-wave 10.1 mV, pacing threshold 0.8 V, current 0.8 mA, impedance 982 ohms. 2.The defibrillator is a [employer] Dynagen EL ICD model D150, serial #[id number]. 3.Ventricular fibrillation was induced and the patient [...] included. Specimen Performing Laboratory [facility] [address] [place] [address] Narrative Vascular Ultrasound Laboratory Lower Extremity Venous Report [address] [place] [address] Pat.Name:Beatris ISAAC.ID:[id number] .Date: 10/02/2017 Refer.MD:MARCOS NEUMANN MD Exam Time: 5:20:00 PMStudy Type:LE Venous DOBAge:1960,56YSex: MALE Sonogrphr: DAVION Park RCS Pat. Stat.:Inpatient Room:[address] TapeVol: FORTUNATO, CPT - 4: 92177 Echo Event ID:[id number] Order ID:[id number] Reason for Study:Evaluate for DVT. History of [...] Signed 10/02/2017 06:33 PM Chanell Fitzgerald MD, RPMARGO Procedure Note Interface, Radiology Results In - 10/02/2017 6:34 PM PLATFORM STAPLER Vascular Ultrasound Laboratory Lower Extremity Venous Report [address] [place] [address] Pat.Name: SAM ISAAC.ID: [id number] St.Date: 10/02/2017 Refer.MD: MARCOS NEUMANN MD Exam Time: 5:20:00 PM Study Type:LE Venous Age: 2 1960,56Y Sex: MALE Sonogrphr: Riky Lawrence, RVPetra, RCS Pat. Stat.:Inpatient Room: [place] [address] A Tape Vol: FORTUNATO, CPT - 4: 82285 Echo Event ID:[id number] Order ID: [id number] Reason for Study:Evaluate for DVT. History of [...] 4:21 PM) Specimen Performing Laboratory [facility] [address] [place] [address] Narrative Echocardiography Report [address] [place] [address] Pat.Name:Beatris ISAAC.ID:[id number] .Date: 10/02/2017 Refer.MD:MARCOS NEUMANN MD Exam Time: 4:15:00 PMStudy Type:Routine Echo Height:70inWeight:280lb BSA: 2.41 m2 DOBAge:1960 ,56Y Sex: MALEBP: 137/72 HR:73 bpmSonogrphr: Kaycee Ascencio RAINA Pat. Stat.:Inpatient Room:[facility] Study Status:Final Echo Event ID:[id number] Order ID:[id number] Reason for Study:HF - Re-eval of known [...] RAPof 10 mmHg. MEASUREMENTS: 2D Parasternal Long Left Hand LVOT 2.2 cmLA Ds 4.4 cm LVIDd6.6 cmIndex 2.7 cm/m Ao An2.4 cm LVIDs5.8 cmAo Rtd 3 cm Index1.3 cm/m LV%fs 12.1 % LV Wmfn742.4 g(122-174) IVSd 1.4 cmLVM Index 187.7 g/m2 [...] Radiology Results In - 10/02/2017 6:55 PM [facility] Echocardiography Report [address] [address], [place] [address] [facility].Name: SAM ISAAC Sadaf.ID: [id number] .Date: 10/02/2017 Refer.MD: MARCOS NEUMANN MD Exam Time: 4:15:00 PM Study Type:Routine Echo Height: 70in Weight: 280lb BSA: 2.41 m2 Age: 2 1960,56Y Sex: MALE BP: 137/72 HR: 73 bpm Sonogrphr: Kaycee Ascencio, RDCS Pat. Stat.:Inpatient Room: 38 Study Status:Final Echo Event ID:[id number] Order ID: [id number] Reason for Study:HF - Re-eval of known [...] of 10 mmHg. MEASUREMENTS: 2D Parasternal Long Left Hand LVOT 2.2 cm LA Ds 4.4 cm [...] - 100 % Specimen Performing Laboratory Blood [facility] DEPARTMENT OF PATHOLOGY AND GENOMIC MEDICINE [address] [place] [address] * Urine drugs of abuse screen (09/30/2017 [...] medical purposes only. Specimen Performing Laboratory Urine [facility] DEPARTMENT OF PATHOLOGY AND [facility] MEDIC[facility] [address] [place] [address] * Urinalysis, automated with microscopy (09/30/2017 4:00 [...] None seen UA Specimen Performing Laboratory Urine [facility] DEPARTMENT OF PATHOLOGY AND GENOMIC MEDICINE [address] [place] [address] * Respiratory pathogen panel (09/30/2017 3:22 PM) [...] Specimen Performing Laboratory Nares - Not specified [facility] DEPARTMENT OF PATHOLOGY AND GENOMIC MEDICINE [address] [place] [address] * Hemoglobin A1c (09/30/2017 1:17 PM) Only [...] type 1 diabetes. Specimen Performing Laboratory Blood [facility] DEPARTMENT OF PATHOLOGY AND GENOMIC MEDICINE [address] [place] [address] * CRITICAL CARE (09/30/2017 12:25 AM) Gabriel [...] of the following conditions:Cardiac failure, circulatory failure, LOCK STITCH CHANNELER failure or compromise, dehydration, hepatic failure, metabolic [...] 308 U/L Specimen Performing Laboratory Plasma specimen [facility] DEPARTMENT OF PATHOLOGY AND GENOMIC MEDICINE [address] [place] [address] * Comprehensive metabolic panel (09/29/2017 9:56 PM) [...] Protein 7.5 6.3 - 8.3 g/dL Comment: Prospect 4.6-7.0 g/dL 1 week 4.4-7.6 g/dL 7 [...] 1.2 mg/dL Specimen Performing Laboratory Plasma specimen [facility] DEPARTMENT OF PATHOLOGY AND GENOMIC MEDICINE [address] [place], [place] [id number] * CRITICAL CARE (08/31/2017 10:46 AM) Narrative [...] 7.0 mg/dL Specimen Performing Laboratory Plasma specimen [facility] DEPARTMENT OF PATHOLOGY AND [facility] MEDIC[facility] [address] [place] [address] * Urine eosinophils (08/08/2017 12:24 PM) Only the most recent of 2 results within the time period is included. Component Value Ref Range Eosinophils, urine NONE Specimen Performing Laboratory Urine [facility] DEPARTMENT OF PATHOLOGY AND [facility] [address] [place] [address] * Renin activity (08/08/2017 12:24 PM) Component Value Ref Range Renin activity 31.4 Comment: Specimen diluted and results confirmed. INTERPRETIVE INFORMATION: Renin Activity Adult, Normal sodium diet: Supine ................. 0.2-1.6 ng/mL/hr Upright ................ 0.5-4.0 ng/mL/hr Children, Normal sodium diet, Supine: Prospect (1-7 days) ..... 2.0-35.0 ng/mL/hr Cord blood [...] angiotensinogen is decreased. See Compliance Statement D: [email or web address] Performed by [facility], [address] [place] [id number] [email or web address], Abhijit Howell MD - Lab. Director Specimen Performing Laboratory Blood [facility] [address] [place] [address] * Aldosterone, serum (08/08/2017 12:24 PM) Component [...] reference intervals for this test in the [facility] Test Directory ([employer]). Performed by [facility], [address] [place] [id number] [email or web address], Abhijit Howell MD - Lab. Director Specimen Performing Laboratory Serum [facility] [address] [place] [address] * Sodium level, urine, random (08/08/2017 12:24 PM) Only the most recent of 2 results within the time period is included. Component Value Ref Range Sodium, urine, random 110 mEq/L Specimen Performing Laboratory Urine [facility] DEPARTMENT OF PATHOLOGY AND GENOMIC MEDICINE [address] [place] [address] * Protein, urine, random (08/08/2017 12:24 PM) Only the most recent of 2 results within the time period is included. Component Value Ref Range Protein, urine random <4 mg/dL Specimen Performing Laboratory Urine [facility] DEPARTMENT OF PATHOLOGY AND GENOMIC MEDICINE [address] [place] [address] * Potassium, urine, random (08/08/2017 12:24 PM) Only the most recent of 2 results within the time period is included. Component Value Ref Range Potassium, urine, random 26.0 mEq/L Specimen Performing Laboratory Urine [facility] DEPARTMENT OF PATHOLOGY AND GENOMIC MEDICINE [address] [place] [address] * Osmolality, urine (08/08/2017 12:24 PM) Only the most recent of 2 results within the time period is included. Component Value Ref Range Osmolality, urine 350 50 - 1,400 mOsm/kg Specimen Performing Laboratory Urine [facility] [place] [place] [address] * Creatinine level, urine, random (08/08/2017 12:24 PM) Only the most recent of 2 results within the time period is included. Component Value Ref Range Creatinine, urine, random 37 mg/dL Specimen Performing Laboratory Urine [facility] [address] * Chloride level, urine, random (08/08/2017 12:24 PM) Only the most recent of 2 results within the time period is included. Component Value Ref Range Chloride, urine, random 105 mEq/L Specimen Performing Laboratory Urine [facility] [place] [address] * Thyroid stimulating hormone (08/08/2017 12:24 PM) Only the most recent of 2 results within the time period is included. Component Value Ref Range TSH 5.53 (H) 0.27 - 4.20 uIU/mL Specimen Performing Laboratory Plasma specimen [facility] [place] [address] * Parathyroid hormone (08/08/2017 12:24 PM) Component Value Ref Range PTH 84 (H) 15 - 65 pg/mL Specimen Performing Laboratory Blood [facility] [place] [address] * Osmolality, serum (08/08/2017 12:24 PM) Component Value Ref Range Osmolality 301 (H) 275 - 295 mOsm/kg Specimen Performing Laboratory Blood [facility] [place] [address] * CBC hemogram (08/08/2017 4:15 AM) Only [...] 0.00 /100 WBC Specimen Performing Laboratory Blood [facility] DEPARTMENT OF PATHOLOGY AND GENOMIC MEDICINE [address] [place] [address] * CT Abdomen Pelvis Wo Contrast (08/03/2017 8:26 PM) Only the most recent of 2 results within the time period is included. Specimen Performing Laboratory [facility] [address] [place] [address] Narrative EXAMINATION:CT ABDOMEN PELVIS WO CONTRAST CLINICAL [...] 4.There is hardware in the lumbar spine. [facility]-[id number] Procedure Note Interface, Radiology Results Incoming - [...] There is hardware in the lumbar spine. [facility]-[id number] * CRITICAL CARE (08/01/2017 8:54 AM) Narrative [...] Chest (07/31/2017 6:34 PM) Specimen Performing Laboratory [facility] [address] [place] [address] Narrative EXAMINATION:XR ABDOMEN ACUTE INC CHEST CLINICAL HISTORY: Bowel ileus COMPARISON:None. FINDINGS: Heart size is enlarged. There is vascular congestion with basal volume loss and fluid on each side. There are postoperative changes in the lower lumbar spine. There are also surgical clips in the right upper quadrant. Bowel gas pattern is nonspecific. IMPRESSION: As above [facility]-[id number] Procedure Note Interface, Radiology Results Incoming - [...] gas pattern is nonspecific. IMPRESSION: [id number] * Ionized calcium (07/19/2017 1:20 AM) Only the most recent of 4 results within the time period is included. Component Value Ref Range pH 7.60 Ionized calcium 1.07 (L) 1.11 - 1.32 mmol/L Specimen Performing Laboratory Plasma specimen [facility] DEPARTMENT OF PATHOLOGY AND GENOMIC MEDICINE [address] [place] [address] * Hepatic function panel (07/19/2017 1:20 AM) Only the most recent of 2 results within the time period is included. Component Value Ref Range Albumin 2.8 (L) 3.5 - 5.0 g/dL Total bilirubin 1.0 0.0 - 1.2 mg/dL Bilirubin direct 0.4 (H) 0.0 - 0.3 mg/dL Alkaline phosphatase 45 40 - 129 U/L Protein 5.7 (L) 6.3 - 8.3 g/dL Comment: 4.6-7.0 g/dL 1 week 4.4-7.6 g/dL 7 months-1year 5.1-7.3 g/dL 1-2 years 5.6-7.5 g/dL >3 years 6.0-8.0 g/dL 18-150 6.3-8.3 g/dL ALT 65 (H) 5 - 50 U/L AST 46 10 - 50 U/L Specimen Performing Laboratory Plasma specimen [facility] DEPARTMENT OF PATHOLOGY AND GENOMIC MEDICINE [address] [place] [address] * XR Abdomen 1 Vw Portable (07/17/2017 3:06 PM) Specimen Performing Laboratory [address] [address] Narrative EXAMINATION:XR ABDOMEN 1 VW PORTABLE CLINICAL HISTORY:Check feeding tube placement COMPARISON:None. IMPRESSION: There is a nonspecific bowel gas pattern. No free air is identified. Nasogastric tube terminates in the body the stomach Postoperative changes of lumbar spine The gallbladder has been removed [facility]-[id number] Procedure Note Interface, Radiology Results Incoming - 07/17/2017 4:02 PM CDT EXAMINATION: XR ABDOMEN 1 VW PORTABLE CLINICAL HISTORY: Check feeding tube placement COMPARISON: None. IMPRESSION: There is a nonspecific bowel gas pattern. No free air is identified. Nasogastric tube terminates in the body the stomach Postoperative changes of lumbar spine The gallbladder has been removed [facility]-[id number] * Surgical pathology request (07/17/2017 12:10 PM) Component Value Ref Range Surgical pathology report See link below for PDF Lab Report Specimen Performing Laboratory [facility] DEPARTMENT OF PATHOLOGY AND GENOMIC MEDICINE [address] [place] [address] * Ionized calcium, arterial (07/17/2017 10:10 AM) Component Value Ref Range Ionized calcium, arterial 0.88 (L)Comment: Specimen is slightly hemolyzed. 1.11 - 1.32 mmol/L Interpret results accordingly. Specimen Performing Laboratory Blood [facility] DEPARTMENT OF PATHOLOGY AND [address] [address] * Lactic acid level (07/17/2017 10:10 AM) Only the most recent of 2 results within the time period is included. Component Value Ref Range Lactic acid 1.8 0.5 - 2.2 mmol/L Specimen Performing Laboratory Plasma specimen [facility] [place] [address] * Type and screen (07/17/2017 4:30 AM) Component Value Ref Range ABO grouping O Rh type POS Antibody screen (gel) NEG Specimen Performing Laboratory Blood [facility] [address] * HCV qualitative by PCR (07/14/2017 4:00 AM) Component Value Ref Range HCV PCR result Detected (A) Not-Detected HCV RNA qualitative See link below for PDF Lab ReportComment: Specimen Performing Laboratory [facility] [place] [address] * Hepatitis C antibody (07/14/2017 4:00 AM) Component Value Ref Range Hepatitis C Ab Reactive (A) Non-reactive Comment: HCV antibody testing initially Reactive. Confirmation by HCV RNA PCR will be performed and reported separately when completed. Repeat HCV RNA PCR will not be performed if done within 30 days. Specimen Performing Laboratory Blood [facility] DEPARTMENT OF PATHOLOGY AND [facility] MEDICINE [address] [place] [address] * Hepatitis C virus quantitative by PCR (07/14/2017 4:00 AM) Component Value Ref Range Hepatitis C quantitative, 13,900,000 (A) Not-Detected IU/mL PCR Hepatitis C quantitative, See link below for PDF Lab ReportComment: Case PCR Number: [id number] Specimen Performing Laboratory [facility] DEPARTMENT OF PATHOLOGY [address] [address] * MRI CHOLANGIOGRAM W WO CONTRAST (07/13/2017 10:04 PM) Specimen Performing Laboratory [facility] [address] [address] Narrative EXAMINATION:MRI CHOLANGIOGRAM W WO CONTRAST CLINICAL [...] No evidence of biliary dilatation or choledocholithiasis. [facility]-[id number] Procedure Note [facility], Radiology Results Incoming - 07/13/2017 10:56 PM CDT EXAMINATION: MRI [...] No evidence of biliary dilatation or choledocholithiasis. [facility]-[id number] * NM Hepatobiliary (HIDA Scan) (07/13/2017 3:07 PM) Specimen Performing Laboratory [address] [address] Narrative PROCEDURE:NM HEPATOBILIARY (HIDA SCAN) INDICATION:Abdominal pain. [...] obstruction. 2.The common bile duct is patent. [facility]-[id number] Procedure Note [facility], Radiology Results Incoming - 07/13/2017 3:23 [...] 2. The common bile duct is patent. [facility]-[id number] * Lipase level (07/13/2017 4:00 AM) Component Value Ref Range Lipase 18 13 - 60 U/L Specimen Performing Laboratory Plasma specimen [facility] DEPARTMENT OF PATHOLOGY AND GENOMIC MEDICINE [address] [place] [address] * Amylase level (07/13/2017 4:00 AM) Component Value Ref Range Amylase 22 13 - 53 U/L Specimen Performing Laboratory Plasma specimen [facility] DEPARTMENT OF PATHOLOGY AND GENOMIC MEDICINE [address] [place] [address] * Lipid panel (07/13/2017 4:00 AM) Only [...] (>=200 mg/dL) Specimen Performing Laboratory Plasma specimen [facility] DEPARTMENT OF PATHOLOGY AND GENOMIC MEDICINE [address] [place] [address] * US Gallbladder (07/13/2017 12:54 AM) Specimen Performing Laboratory [facility] [address] [place] [address] Narrative EXAMINATION:US GALLBLADDER CLINICAL HISTORY:Cholecystitis COMPARISON:None. FINDINGS: [...] Common bile duct sonographically within normal limits. [facility]-[id number] Procedure Note Interface, Radiology Results Incoming - [...] Common bile duct sonographically within normal limits. [facility]-[id number] * ECG ED Preliminary Interpretation - NOT AN ORDER (07/12/2017 10:18 PM) Only the most recent of 2 results within the time period is included. 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 Previous ECG: Previous ECG:Compared to current [...] provided as part of this Stress ECG report.-Electronically Signed By Carlton Wing MD ([id number]), assignment desk editor Mary Gross ([id number]) on 05/06/2017 6:03:03 AM Specimen Performing Laboratory [facility] MUSE [address] [place] [address] * Nm myocardial perfusion (05/05/2017 8:17 AM) Specimen Performing Laboratory [facility] [address] [place] [address] Narrative Nuclear Cardiology and Cardiac CT [address] [place] [address] Myocardial Perfusion Imaging Report Stress ECG tracings are available in MUSE, EPIC and CV Web All ECG interpretations are included in this report Pat.Name:Beatris ISAAC.ID:[id number] St.Date: 05/05/2017Refer.MD:MARCOS PRIDE MD Exam Time: 8:17:00 AM Study Type:Myocardial Perfusion Imaging Height:70inWeight:285lb BSA: 2.43 m2 DOBAge:1960 ,56Y Sex: MALEBP: 142/86 HR:73 bpmNuclear Tech:MONAE Rebolledo Pat. Stat.:Inpatient Room:[facility] Nuclear Event ID:[id number] Order ID:[id number] Reason for Study:Chest pain, unspecified* History / Clinical:Congestive heart failure, Coronary artery disease, Hyperlipidemia, Hypertension, Obesity Procedures:Two Day Stress / Rest Race:-Macedonian Risk Factors:Known Coronary Atherosclerosis, Hyperlipidemia, Hypertension, Obesity Clinical Symptoms:Regadenoson Physical Exam:S1, S2, clear lungs Surgery: Serum K+ Date,3.5/05/05/17, Troponin I Date,1)neg x 2 -05/05/17 2)/ 3)/, BUN/Creatinine Date,07/29.005/05/17 Medications:Clonidine, Coreg, Lipitor, Lisinopril, Hydralazine, Imdur SUMMARY: [...] CDT Nuclear Cardiology and Cardiac CT [address] [place] [address] Myocardial Perfusion Imaging Report Stress ECG tracings are available in [employer], [employer] and [employer] All ECG interpretations are included in this report Pat.Name: SAM ISAAC Pat.ID: [id number] St.Date: 05/05/2017 Refer.MD: MARCOS PRIDE MD Exam Time: 8:17:00 AM Study Type:Myocardial Perfusion Imaging Height: 70in Weight: 285lb BSA: 2.43 m2 Age: 2 1960,56Y Sex: MALE BP: 142/86 HR: 73 bpm Nuclear Tech:MONAE Rebolledo Pat. Stat.:Inpatient Room: [facility] Nuclear Event ID:[id number] Order ID: [id number] Reason for Study:Chest pain, unspecified* History / Clinical:Congestive heart failure, Coronary artery disease, Hyperlipidemia, Hypertension, Obesity Procedures:Two Day Stress / Rest Race: -Macedonian Risk Factors:Known Coronary Atherosclerosis, Hyperlipidemia, Hypertension, Obesity [...] time period is included. Specimen Performing Laboratory [facility] [address] [place] [address] Narrative Examination:XR CHEST 2 VW Clinical history:"R06.02 Shortness of breath, r06.02" Comparison:04/15/2017 IMPRESSION: There is improved aeration of both lung bases.Faint left anterior, basilar pleural thickening versus a small loculated left pleural effusion cannot be excluded.Otherwise, there are no apparent infiltrates or pneumothoraces.The borderline prominent cardiomediastinal silhouette and the imaged bones are stable in appearance. [id number] Procedure Note Hm Interface, Radiology Results Incoming [...] the imaged bones are stable in appearance. [id number] * CT Angiogram Pe Chest (04/15/2017 5:32 AM) Specimen Performing Laboratory [facility] [address] [place] [address] Narrative EXAMINATION:CT ANGIOGRAM PE CHEST CLINICAL HISTORY: [...] AM and acknowledged understanding of the findings. [facility]-[id number] Procedure Note Hm Interface, Radiology Results Incoming [...] AM and acknowledged understanding of the findings. [facility]-[id number] * Cardiac mri heart fx only noncontrast (03/09/2017 2:26 PM) Specimen Performing Laboratory [facility] [address] [place] [address] [facility] CMR Report Patient Patient Name: SAM ISAAC [...] Lateral | Mild/Mod Hypo || || | [place] | Mild/Mod Hypo | ||| + + [...] Phase Contrast Velocity Mapping SETUP TYPE:Clinical INPATIENT:Yes LOCATION:[facility] SCAN:No REASON(S) FOR SCAN:CHF/Cardiomyopathy REFERRING PHYSICIAN:1) Marcos Neumann MD ATTENDING PHYSICIAN:Carlton Wing MD TECHNOLOGIST:Chiara Mcnulty [facility] ASSISTANTS:1) Ramiro Avila 2) Brittany CRAIG 3) Gregorio Coe MD BILLING Patient Account [id number] CPT Codes 77228, [ , ]23023 ICD10 Codes I42.8 Procedure Note Interface, Radiology Results In - 03/09/2017 3:44 PM CDT Yg Chandra CMR Report Patient Patient Name: SAM ISAAC [...] Mild/Mod Hypo | | | | | [place] | Mild/Mod Hypo | | | | [...] Mapping SETUP TYPE: Clinical INPATIENT: Yes LOCATION: [facility] SCAN: No REASON(S) FOR SCAN: CHF/Cardiomyopathy REFERRING PHYSICIAN: 1) Marcos Neumann MD ATTENDING PHYSICIAN: Carlton Wing MD TECHNOLOGIST: Chiara Mcnulty [facility] ASSISTANTS: 1) Ramiro Avila 2) Brittany Gates RT 3) Gregorio Coe MD BILLDG Patient Account [id number] CPT Codes 89823, [ , ]56765 ICD10 Codes I42.8 * Homocystine, plasma (03/08/2017 9:14 AM) Component Value Ref Range Homocysteine 6.0 0.0 - 15.0 umol/L Comment: The risk for coronary vascular disease increases progressively with homocysteine concentration. A 3.4 times greater risk is associated with a homocysteine concentration of greater than 15.8 umol/L as compared to a concentration below 14.1 umol/L. Specimen Performing Laboratory Plasma specimen [facility] DEPARTMENT OF PATHOLOGY AND GENOMIC MEDICINE [address] [place] [address] Narrative CMP,MG added and read back to [...] for alternative methods. Specimen Performing Laboratory Blood [facility] DEPARTMENT OF PATHOLOGY AND GENOMIC MEDICINE [address] [place] [address] Narrative CMP,MG added and read back to [facility] in [facility] 03/08/2017 13:21 LMID. * C-reactive protein (03/08/2017 9:14 AM) Component Value Ref Range CRP 0.35 0.00 - 0.50 mg/dL Specimen Performing Laboratory Plasma specimen [facility] DEPARTMENT OF PATHOLOGY AND GENOMIC MEDICINE [address] [place] [address] Narrative CMP,MG added and read back to Nicolasa Offor in 03/08/2017 13:21 LMID. * T3 (03/08/2017 9:14 AM) Component Value Ref Range T3 72 (L) 80 - 200 ng/dL Specimen Performing Laboratory Plasma specimen [facility] DEPARTMENT OF PATHOLOGY AND GENOMIC MEDICINE [address] [place] [address] Narrative CMP,MG added and read back to Nicolasa Offor in 03/08/2017 13:21 LMID. * T4, free (03/08/2017 9:14 AM) Component Value Ref Range T4, free 1.0 0.9 - 1.7 ng/dL Specimen Performing Laboratory Plasma specimen [facility] DEPARTMENT OF PATHOLOGY AND GENOMIC MEDICINE [address] [place] [address] Narrative CMP,MG added and read back to Nicolasa Offor in 03/08/2017 13:21 LMID. * Folate level (03/08/2017 9:14 AM) Component Value Ref Range Folate 16.8 4.8 - 24.2 ng/mL Specimen Performing Laboratory Serum [facility] DEPARTMENT OF PATHOLOGY AND GENOMIC MEDICINE [address] [place] [address] Narrative CMP,MG added and read back to [facility] in 1 03/08/2017 13:21 LMID. * Vitamin B12 level (03/08/2017 9:14 AM) Component Value Ref Range Vitamin B12 753 211 - 946 pg/mL Comment: Significant overlap exists between normal and deficiency states. However, most patients with deficiencies will have Serum B12 <200 pg/mL. Specimen Performing Laboratory Serum [facility] DEPARTMENT OF PATHOLOGY AND GENOMIC MEDICINE [address] [place] [address] Narrative CMP,MG added and read back to [facility] in [facility] 03/08/2017 13:21 LMID. * CT Head Wo Contrast (03/07/2017 4:42 PM) Specimen Performing Laboratory [facility] [address] [place] [address] Narrative EXAMINATION: CT HEAD WO CONTRAST COMPARISON: [...] Stable generalized involutional changes. No gross hemorrhage [facility]-[id number] Procedure Note Interface, Radiology Results Incoming - [...] Stable generalized involutional changes. No gross hemorrhage [facility]-[id number] * Sputum culture (03/05/2017 11:35 PM) Component Value Ref Range Sputum culture isolate Normal oral sienna isolated. Comment: Specimen Information Specimen Source: Sputum Specimen Site: Expectorated Specimen Performing Laboratory Sputum - Expectorated [facility] DEPARTMENT OF PATHOLOGY AND GENOMIC MEDICINE [address] [place] [address] * Gram stain (03/05/2017 11:35 PM) Component Value Ref Range Gram stain isolate Rare WBC's Rare Gram positive rods Many Gram positive cocci in pairs Comment: Specimen Information Specimen Source: Sputum Specimen Site: Expectorated Specimen Performing Laboratory Sputum - Expectorated [facility] DEPARTMENT OF PATHOLOGY AND GENOMIC MEDICINE [address] [place] [address] after 02/10/2017 Insurance Payer Benefit Subscriber ID Type Phone Address Plan / Group [employer] xxxxxxxxx O COMM [employer]+ ALEJANDRA Home: [address] [place], [place] [phone] [id number]
--- OUTSIDE RECORDS SUMMARY | 2018-02-11 04:36 | XMS REPORT | Continuity of Care Document ---
Author Author [facility] Organization [facility] Address [address] [place] [address] Phone Unavailable Care Team Providers Care Dishtank Operator Name Role Phone JUAN BENÍTEZ DO PCP Insurance Providers Guarantor Jeancarlos Isaac Address [id number] [place] [address] Email NONE Payer [facility] [employer] Policy Number [id number] Subscriber's Name Jeancarlos Isaac Relationship 18 Self / Same As Patient Effective Date 11 Advance Directives Directive Response Recorded Date/Time Does the patient have an advance directive? No 11/04/17 12:26am If yes, is advance directive on file with [facility]? No 11/04/17 12:26am If not on file with [facility] will patient provide a copy? Yes 02/03/18 5:42am Do you have a Directive to Physician? No 02/03/18 5:42am Do you have a Medical Power of Kiln Hand? No 02/03/18 5:42am Do you have an out of hospital Do Not Resuscitate Order? No 02/03/18 5:42am Do you have any special needs we should be aware of? No 02/03/18 5:42am Do you have a support person here with you today? Yes 02/03/18 5:42am Did patient receive Notice of Privacy Practices? Yes 02/03/18 5:42am Did patient receive patient rights and responsibilities? Yes 02/03/18 5:42am Problems Medical Problem Onset Date Status Chest pain Unknown Medications Current Home Medications Medication Dose Units Route Directions Days Qty Instructions Start Date Aspirin (Aspir 81) 81 Mg Tablet. Atorvastatin Calcium 10 Mg Tablet 10 Mg Oral Today At 9:00PM 30 Tab Bisacodyl 5 Mg Tablet. 10 Mg Oral Daily Carvedilol 3.125 Mg Tablet 6.125 Mg Oral Twice A Day 60 Tab Clonidine Hcl 0.1 Mg Tablet 1 Tab Oral Daily as needed for High Blood Pressure 60 Tab Eliquis 5 Mg Oral Twice A Day Entresto 24-26 Mg Oral Twice A Day Furosemide 40 Mg Tablet 40 Mg Oral Twice A Day 30 Tab Lisinopril 10 Mg Tablet 10 Mg Oral Twice A Day 30 Tab Magnesium Oxide 400 Mg Tablet 400 Mg Oral Daily Nitroglycerin (Nitro-Bid) 1 Gm Oint...g. 1 G Transderm Every 6 Hours Pantoprazole Sodium (Protonix) 40 Mg Tablet. 40 Mg Oral Daily Sennosides (Senna Lax) 8.6 Mg Tablet 8.6 Mg Oral Daily Sertraline Hcl 100 Mg Tablet 100 Mg Oral Bedtime Tramadol Hcl (Ultram 50MG*) 50 Mg Tab 50 Mg Oral Every 6 Hours as needed for Pain Varenicline Tartrate (Chantix) 0.5 Mg Tablet 0.5 Mg Oral As Needed Social History Social History Problem Response Recorded Date/Time Onset Date Status Hx Psychiatric Problems No 11/04/2017 12:26am Not Applicable Not Applicable Hx Eating Disorder No 11/04/2017 12:26am Not Applicable Not Applicable Hx Substance Use Disorder No 11/04/2017 12:26am Not Applicable Not Applicable Hx Depression Yes 11/04/2017 12:26am Not Applicable Not Applicable Hx Alcohol Use No 11/04/2017 12:26am Not Applicable Not Applicable Hx Substance Use Treatment No 11/04/2017 12:26am Not Applicable Not Applicable Hx Physical Abuse No 11/04/2017 12:26am Not Applicable Not Applicable Smoking Status Start Date Stop Date Former smoker Hospital Discharge Instructions No hospital discharge instruction information available. Plan of Care Discharge Date 02/03/18 9:16am Disposition HOME, SELF-CARE Condition at Discharge Stable Instructions/Education Provided Chest Pain - Chest Wall Congestive Heart Failure Forms Provided Work/School Excuse Prescriptions See Medication Section Referrals JUAN BENÍTEZ DO Order Date: Call for an appointment Address: [address] [place] [id number] Additional Instructions/Education CALL TOMORROW TO MAKE APPOINTMENT TO SEE YOUR DOCTOR. TAKE PRESCRIPTION DESCRIBED BY PHYSICLINDA. RETURN IF WORSENING OF CONDITION. Functional Status No functional status information available. Allergies, Adverse Reactions, Alerts No known allergies. Immunizations No immunization information available. Vital Signs Acute Vital Signs Vital Response Date/Time Temperature (Fahrenheit) 97.3 degrees F (97.6 - 99.5) 11/06/2017 3:52pm Pulse Pulse Rate (adult) 113 bpm (60 - 90) 02/03/2018 6:19am Respiratory Rate 20 bpm (12 - 24) 02/03/2018 6:19am Blood Pressure 142/81 mm Hg 11/06/2017 3:52pm Height 5 ft 10 in 02/03/2018 5:40am Weight 285 lb 02/03/2018 5:40am Body Mass Index 40.9 kg/m^2 02/03/2018 5:40am Results Laboratory Results Test Name Result Units Flags Reference Collection Date/Time Result Date/ Time Comments D-Dimer Quantitative (PE/DVT) 1.05 ug/mLFEU H 0.00-0.45 11/04/2017 8: 00am 11/04/2017 11:26am Bedside Glucose 132 mg/dL H 70-120 11/06/2017 3:12pm 11/08/2017 12:25pm Meter ID: [id number] Hemoglobin A1c Percent 6.7 % 4.0-7.0 11/04/2017 7:58am 11/04/2017 10: 15am Magnesium Level 1.9 MG/DL 1.3-2.1 11/03/2017 1:14pm 11/03/2017 1:49pm Triglycerides Level 116 MG/DL 0-149 11/04/2017 7:58am 11/04/2017 9: 07am Cholesterol Level 141 MD/DL 0-199 11/04/2017 7:58am 11/04/2017 9:07am Less than 200 mg/dL Low Risk 201 - 239 mg/dL Borderline Risk 240 mg/dl and greater High Risk LDL Cholesterol 76 MG/DL 60-130 11/04/2017 7:58am 11/04/2017 9:07am HDL Cholesterol 42 MG/DL 40-60 11/04/2017 7:58am 11/04/2017 9:07am Cholesterol/HDL Ratio 3.4 L 3.9-4.7 11/04/2017 7:58am 11/04/2017 9: 07am White Blood Count 13.82 x10e3/uL H 4.8-10.8 02/03/2018 5:50am 2017 6:30am Red Blood Count 4.44 x10e6/uL 4.3-5.7 02/03/2018 5:50am 02/03/2018 6: 30am Hemoglobin 11.7 g/dL L 14.0-18.0 02/03/2018 5:50am 02/03/2018 6:30am Hematocrit 39.5 % 38.2-49.6 02/03/2018 5:50am 02/03/2018 6:30am Mean Corpuscular Volume 89.0 fL 81-99 02/03/2018 5:50am 02/03/2018 6: 30am Mean Corpuscular Hemoglobin 26.4 pg L 28-32 02/03/2018 5:50am 2017 6:30am Mean Corpuscular Hemoglobin Concent 29.6 g/dL L 31-35 02/03/2018 5:50am 02/03/2018 6:30am Red Cell Distribution Width 13.4 % 11.7-14.4 02/03/2018 5:50am 2017 6:30am Platelet Count 243 x10e3/uL 140-360 02/03/2018 5:50am 02/03/2018 6: 30am Neutrophils (%) (Auto) 66.2 % 38.7-80.0 02/03/2018 5:50am 02/03/2018 6: 30am Lymphocytes (%) (Auto) 25.3 % 18.0-39.1 02/03/2018 5:50am 02/03/2018 6: 30am Monocytes (%) (Auto) 5.6 % 4.4-11.3 02/03/2018 5:50am 02/03/2018 6: 30am Eosinophils (%) (Auto) 1.7 % 0.0-6.0 02/03/2018 5:50am 02/03/2018 6: 30am Basophils (%) (Auto) 0.3 % 0.0-1.0 02/03/2018 5:50am 02/03/2018 6:30am IM GRANULOCYTES % 0.9 % 0.0-1.0 02/03/2018 5:50am 02/03/2018 6:30am Neutrophils # (Auto) 9.2 H 2.1-6.9 02/03/2018 5:50am 02/03/2018 6: 30am Lymphocytes # (Auto) 3.5 H 1.0-3.2 02/03/2018 5:50am 02/03/2018 6: 30am Monocytes # (Auto) 0.8 0.2-0.8 02/03/2018 5:50am 02/03/2018 6:30am Eosinophils # (Auto) 0.2 0.0-0.4 02/03/2018 5:50am 02/03/2018 6:30am Basophils # (Auto) 0.0 0.0-0.1 02/03/2018 5:50am 02/03/2018 6:30am Absolute Immature Granulocyte (auto 0.12 x10e3/uL H 0-0.1 02/03/2018 5: 50am 02/03/2018 6:30am Prothrombin Time 12.0 seconds 11.9-14.5 02/03/2018 5:50am 02/03/2018 7: 26am Prothromb Time International Ratio 0.96 02/03/2018 5:50am 2017 7:26am Oral Anticoagulant Therapy INR Values: 1. Low Intensity Therapy 1.5 - 2.0 2. Moderate Intensity Therapy 2.0 - 3.0 3. High Intensity Therapy(1) 2.5 - 3.5 4. High Intensity Therapy(2) 3.0 - 4.0 5. Panic Value INR > 5.0 Activated Partial Thromboplast Time 29.5 seconds 23.8-35.5 02/03/2018 5: 50am 02/03/2018 7:26am Sodium Level 142 mmol/L 136-145 02/03/2018 5:50am 02/03/2018 7:25am Potassium Level 4.3 mmol/L 3.5-5.1 02/03/2018 5:50am 02/03/2018 7:25am Chloride Level 93 mmol/L L 98-107 02/03/2018 5:50am 02/03/2018 7:25am Carbon Dioxide Level 43 mmol/L *H 22-29 02/03/2018 5:50am 02/03/2018 7: 25am Results called to RUCHI JOHNSON at 0724 on 02/03/18 by Madhavi Purcell. RB OK. Anion Gap 10.3 mmol/L 8-02/03/2018 5:50am 02/03/2018 7:25am Blood Urea Nitrogen 19 mg/dL 7-02/03/2018 5:50am 02/03/2018 7:25am Creatinine 1.25 mg/dL 0.72-1.25 02/03/2018 5:50am 02/03/2018 7:25am BUN/Creatinine Ratio 15 6-25 02/03/2018 5:50am 02/03/2018 7:25am Estimat Glomerular Filtration Rate > 60 ML/MIN 60- 02/03/2018 5:50am 7:25am Ranges were taken from the National Kidney Disease Education Program and the National [employer] literature. Reference ranges: 60 or greater: Normal 16-59 (for 3 consecutive months): Chronic kidney disease 15 or less: Kidney failure Glucose Level 178 mg/dL H 74-118 02/03/2018 5:50am 02/03/2018 7:25am Calcium Level 9.2 mg/dL 8.4-10.2 02/03/2018 5:50am 02/03/2018 7:25am Total Bilirubin 0.4 mg/dL 0.2-1.2 02/03/2018 5:50am 02/03/2018 7:25am Aspartate Amino Transf (AST/SGOT) 36 IU/L H 5-34 02/03/2018 5:50am 02/03 7:25am Alanine Aminotransferase (ALT/SGPT) 52 IU/L 0-55 02/03/2018 5:50am 05/2018 7:25am Total Protein 7.4 g/dL 6.5-8.1 02/03/2018 5:50am 02/03/2018 7:25am Albumin 2.9 g/dL L 3.5-5.0 02/03/2018 5:50am 02/03/2018 7:25am Globulin 4.5 g/dL H 2.3-3.5 02/03/2018 5:50am 02/03/2018 7:25am Albumin/Globulin Ratio 0.6 L 0.8-2.0 02/03/2018 5:50am 02/03/2018 7: 25am Alkaline Phosphatase 89 IU/L 40-150 02/03/2018 5:50am 02/03/2018 7: 25am B-Type Natriuretic Peptide 283.6 pg/mL H 0-100 02/03/2018 5:50am 2017 7:25am Creatine Kinase 271 IU/L H 30-200 02/03/2018 5:50am 02/03/2018 7:25am Creatine Kinase MB 3.50 ng/mL 0-5.0 02/03/2018 5:50am 02/03/2018 7: 25am Troponin I 0.076 ng/mL 0-0.300 02/03/2018 5:50am 02/03/2018 7:25am Arterial Blood pH 7.37 7.31-7.41 02/03/2018 7:40am 02/03/2018 8:32am Arterial Blood Partial Pressure CO2 76 mmHg *H 41-51 02/03/2018 7:40am 8:32am Results called/hand delivered to DR PAYAN at 0750 on 02/03/18 by Robert Del Castillo. RB OK. Arterial Blood Partial Pressure O2 92 mmHg 80-105 02/03/2018 7:40am 05/2018 8:32am Arterial Blood HCO3 43 mmol/L H 23-28 02/03/2018 7:40am 02/03/2018 8: 32am Arterial Blood Base Excess 18.0 mmol/L H -2 - 3 02/03/2018 7:40am 2017 8:32am Arterial Blood Oxygen Saturation 96.0 % 95-98 02/03/2018 7:40am 2017 8:32am Procedures Procedure Status Date Provider(s) X-ray of chest, single view Active 11/03/17 ALVA PADILLA Encounters Encounter Location Arrival/Admit Date Discharge/Depart Date Attending Provider Registered Emergency Room [facility] 02/03/18 5:37am CORIN PAYAN MD Discharged Inpatient (obs) [facility] 11/03/17 8:46pm 07/16 6:21pm GENARO AMADO MD
[2018-02-11] MEDS ORDERED: ALBUTEROL SULF 0.083% NEB SOLN 3 ML NEB NEB STA (04:43)
[2018-02-11] MEDS ORDERED: IPRATROPIUM BROMIDE 0.02% 2.5 ML NEB NEB ONE (04:45)
[2018-02-11] MEDS ORDERED: ACETAMINOPHEN 325 MG TAB PO ONE (04:45)
[2018-02-11 05:43] LABS: BASOPHILS % 0.5 % (0.0-1.0); EOSINOPHILS # (AUTO) 0.2 (0.0-0.4); EOSINOPHILS % 2.3 % (0.0-6.0); HEMATOCRIT 40.5 % (38.2-49.6); HEMOGLOBIN 11.9 g/dL (14.0-18.0); LYMPHOCYTES # (AUTO) 3.3 (1.0-3.2); LYMPHOCYTES % 41.4 % (18.0-39.1); MEAN CORPUSCULAR HEMOGLOBIN 26.2 pg (28-32); MEAN CORPUSCULAR HGB CONC 29.4 g/dL (31-35); MEAN CORPUSCULAR VOLUME 89.2 fL (81-99); MONOCYTES # (AUTO) 0.6 (0.2-0.8); MONOCYTES % 7.4 % (4.4-11.3); NEUTROPHILS # (AUTO) 3.8 (2.1-6.9); NEUTROPHILS % 48.1 % (38.7-80.0); PLATELET COUNT 155 x10e3/uL (140-360); RED BLOOD COUNT 4.54 x10e6/uL (4.3-5.7); RED CELL DISTRIBUTION WIDTH 13.8 % (11.7-14.4)
[2018-02-11 06:05] LABS: INR 1.01; PARTIAL THROMBOPLASTIN TIME 29.1 seconds (23.8-35.5); PROTHROMBIN TIME 12.5 seconds (11.9-14.5)
--- NOTE | 2018-02-11 06:08 | Diagnostic Imaging Report ---
EXAM: CHEST SINGLE (PORTABLE), AP 1 view INDICATION: Shortness of breath COMPARISON: AP view of the chest February 03, 2018 FINDINGS: LINES/TUBES: Stable position of left approach cardiac device. LUNGS: Stable pulmonary edema and bibasilar atelectasis. PLEURA: No effusions or pneumothorax. HEART AND MEDIASTINUM: Stable enlargement of the cardiomediastinal silhouette. BONES AND SOFT TISSUES: No acute findings. IMPRESSION: No interval change. Signed by: Dr. Pavithra Mancera M.D. on 02/11/2018 6:05 AM
[2018-02-11 06:14] LABS: ALANINE AMINOTRANSFERASE 35 IU/L (0-55); ALBUMIN 3.1 g/dL (3.5-5.0); ALBUMIN/GLOBULIN RATIO 0.6 (0.8-2.0); ALKALINE PHOSPHATASE 68 IU/L (40-150); ANION GAP 10.9 mmol/L (8-16); BLOOD UREA NITROGEN 10 mg/dL (7-26); BUN/CREATININE RATIO 8 (6-25); CALCIUM 8.6 mg/dL (8.4-10.2); CARBON DIOXIDE 38 mmol/L (22-29); CHLORIDE 94 mmol/L (98-107); CREATINE KINASE 298 IU/L (30-200); CREATININE, SERUM 1.25 mg/dL (0.72-1.25); EST GLOMERULAR FILTRATION RATE > 60 ML/MIN (60-); GLUCOSE 210 mg/dL (74-118); POTASSIUM 3.9 mmol/L (3.5-5.1); SODIUM 139 mmol/L (136-145)
[2018-02-11] MEDS ORDERED: TRAMADOL HCL 50 MG TAB PO PRN (06:45)
[2018-02-11] MEDS ORDERED: DEXTROSE 50% SYRINGE 50 ML IV PRN (06:45)
[2018-02-11] MEDS ORDERED: SODIUM CHLORIDE FLUSH 10 ML SYR INJ PRN (06:45)
[2018-02-11] MEDS ORDERED: VARENICLINE TARTRATE 0.5 MG PO SCH (06:45)
[2018-02-11] MEDS ORDERED: CLONIDINE HCL 0.1 MG TAB PO PRN (06:45)
--- OUTSIDE RECORDS SUMMARY | 2018-02-11 06:48 | XMS REPORT | Clinical Summary ---
Author Author [employer] Organization [employer] Address Unknown Phone Unavailable Care Team Providers Care Bicycle Subassembler Name Role Phone Cristino Bryant DO PCP [...] Ep aicd implant single dual bi vent [[id number] (CPT )] 10/03/2017 Procedure Pass Procedural Cardiology 10/03/2017 Procedure Pass Procedural Cardiology 09/30/2017 Orders Only Transplant Siddhartha Summers RN Chronic systolic heart failure (Primary Dx) 09/29/2017 [facility] Cardiology Jacek Fuentes, Acute on chronic combined - Encounter DO systolic and diastolic 10/15/2017 Gina Ness PA congestive heart failure, Marcos Prdie MD NYHA class 4 (Primary Sdueep Maier O. 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 08/30/2017 [facility] Cardiology Wilber Quiñones MD Acute on chronic - Encounter Marcos Pride MD congestive heart failure, 09/05/2017 unspecified congestive heart failure type (Primary Dx) 07/31/2017 [facility] Neurology Neil Patel Hypertension, - Encounter MD [...] LAPAROSCOPIC 07/13/2017 Procedure Pass General Surgery 07/12/2017 [facility] General Surgery Cha Ibarra MD Acute cholecystitis [...] breath Encounter MD Antoni 05/03/2017 Transcribe Access GiovanniMarocs Benedict Shortness of breath Orders MD Antoni (Primary Dx) 04/15/2017 [facility] Cardiology Emmanuel Neely DO Acute on chronic - Encounter Marcos Pride MD congestive heart failure, 04/17/2017 unspecified congestive heart failure type (Primary Dx); Chronic obstructive pulmonary disease, unspecified COPD type; Malignant hypertension; Hyperlipidemia, unspecified hyperlipidemia type 03/05/2017 [facility] Cardiology Morena CaputoRoula Celeste MD Acute on [...] Taken Blood Pressure 156/93 10/19/2017 9:19 AM BORING MACHINE OPERATOR DOUBLE END Pulse 85 10/19/2017 9:19 AM BORING MACHINE OPERATOR DOUBLE END Temperature 35.8 C (96.4 F) 10/19/2017 9:19 AM BORING MACHINE OPERATOR DOUBLE END Respiratory Rate 16 10/15/2017 3:44 PM BORING MACHINE OPERATOR DOUBLE END Oxygen Saturation 93% 10/15/2017 3:44 PM BORING MACHINE OPERATOR DOUBLE END Inhaled Oxygen - - Concentration Weight 136 kg (299 lb 12.8 oz) 10/19/2017 9:19 AM BORING MACHINE OPERATOR DOUBLE END Height 177.8 cm (5' 10") 10/19/2017 9:19 AM BORING MACHINE OPERATOR DOUBLE END Body Mass Index 43.02 10/19/2017 9:19 AM BORING MACHINE OPERATOR DOUBLE END Plan of Treatment Health Maintenance Due Date Last Done Comments FOOT EXAM 1971 OPHTHALMOLOGY EXAM 1971 COLONOSCOPY 2011 INFLUENZA VACCINE 05/29/2018 08/05/2017, 12/27/2016 Implants Implanted Type Area Patent Prosecution Paralegal Device Expiration Model / Identifier Date Serial / Lot [employer] [place] Df4 Tachy Lead - Cardiac N/A: N/A [employer] 11/29/2021 [id number] / [id number] Pacing SCIENTIFIC- CRM / Implanted: Qty: 1 on 10/03/2017 by Leads or [id number] Abraham Barreto Jr., MD Electrodes or Accessorie s Dynagen El Icd Df4 Vr Defibrilla [employer] D150 / Implanted: Qty: 1 on 10/03/2017 by tor ICD [employer]ENTIFIC [id number] / Abraham Barreto Jr., MD Devices [id number] Pins In Lumbar L4-L5 Procedures Procedure Name Priority Date/Time Associated Diagnosis Comments ECHOCARDIOGRAM 2D LIMITED STAT 10/04/2017 Results for this 4:25 PM BORING MACHINE OPERATOR DOUBLE END procedure are in the results section. EP AICD IMPLANT SINGLE Routine 10/03/2017 Results for this DUAL BI VENT 11:27 AM BORING MACHINE OPERATOR DOUBLE END procedure are in the results section. ECHOCARDIOGRAM 2D Routine 10/02/2017 Results for this COMPLETE W MMODE SPECTRAL 4:21 PM BORING MACHINE OPERATOR DOUBLE END procedure are in the COLOR DOPPLER (43302) results section. DC CRITICAL CARE, E/M Routine 09/30/2017 Results for this 30-74 MINUTES 12:25 AM BORING MACHINE OPERATOR DOUBLE END procedure are in the results section. DC CRITICAL CARE, E/M Routine 08/31/2017 Results for this 30-74 MINUTES 10:46 AM CDT procedure are in the results section. CONSULT CARDIAC REHAB Routine 08/08/2017 PHASE 1 12:05 PM CDT DC CRITICAL CARE, E/M Routine 08/01/2017 Results for this 30-74 MINUTES 8:54 AM CDT procedure are in the results section. DC AN ELECTIVE Routine 07/17/2017 ENDOTRACHEAL AIRWAY 8:36 AM CDT Procedure Note - Lizzy Salazar, PRODUCT DEVELOPMENT CHEMIST - 07/17/2017 8:14 AM CDT Airway Date/Time: [...] and Americans. Specimen Performing Laboratory Plasma specimen [facility] DEPARTMENT OF PATHOLOGY AND GENOMIC MEDICINE [address] [place] [address] * B natriuretic peptide (10/19/2017 10:00 AM) Only the most recent of 21 results within the time period is included. Component Value Ref Range BNP 1,574 (H) 0 - 100 pg/mL Specimen Performing Laboratory Blood [facility] DEPARTMENT OF PATHOLOGY AND GENOMIC MEDICINE [address] [place] [address] * Magnesium level (10/19/2017 10:00 AM) Only the most recent of 27 results within the time period is included. Component Value Ref Range Magnesium 1.8 1.6 - 2.6 mg/dL Specimen Performing Laboratory Plasma specimen [facility] DEPARTMENT OF PATHOLOGY AND [address] [address] * Basic metabolic panel (10/19/2017 10:00 AM) [...] 10.2 mg/dL Specimen Performing Laboratory Plasma specimen [facility] DEPARTMENT OF PATHOLOGY AND [address] [address] * XR Chest 1 Vw Portable (10/15/2017 3:49 PM) Only the most recent of 13 results within the time period is included. Specimen Performing Laboratory [facility] [address] [place] [address] Narrative Examination:XR CHEST 1 VW PORTABLE Clinical history:"Pleural Effusions" Comparison:10/04/2017 IMPRESSION: There are no new alveolar opacities within either lung.Bibasilar opacities consistent with atelectasis versus small infiltrates appear unchanged. No pneumothoraces are identified. The cardiomediastinal silhouette is unchanged. The bones of the chest are unchanged. Cardiac pacer is again seen. [facility]-[id number] Procedure Note Interface, Radiology Results Incoming - 10/15/2017 3:59 PM BORING MACHINE OPERATOR DOUBLE END Examination: XR CHEST 1 VW PORTABLE Clinical history: "Pleural Effusions" Comparison: 10/04/2017 IMPRESSION: There are no new alveolar opacities within either lung. Bibasilar opacities consistent with atelectasis versus small infiltrates appear unchanged. No pneumothoraces are identified. The cardiomediastinal silhouette is unchanged. The bones of the chest are unchanged. Cardiac pacer is again seen. [facility]-[id number] * POC glucose (10/15/2017 11:38 AM) Only the most recent of 132 results within the time period is included. Component Value Ref Range POC glucose 248 (H) 65 - 99 mg/dL Comment: [facility] Notified RN Meter ID: [id number] Line Therapist: Gorge Hoffmann Specimen Performing Laboratory [facility] DEPARTMENT OF PATHOLOGY AND GENOMIC MEDICINE [address] [place] [address] * CBC with platelet and differential (10/14/2017 [...] (promyelocytes, myelocytes, metamyelocytes) Specimen Performing Laboratory Blood [facility] DEPARTMENT OF PATHOLOGY AND GENOMIC MEDICINE [address] [place] [address] * CT Chest Wo Contrast (10/10/2017 10:22 PM) Specimen Performing Laboratory [facility] [address] [place] [address] Narrative Examination:CT CHEST WO CONTRAST Clinical History: [...] the left lingular and bilateral lower lobes. [facility]-[id number] Procedure Note Interface, Radiology Results Incoming - 10/10/2017 10:53 PM BORING MACHINE OPERATOR DOUBLE END Examination: CT CHEST WO CONTRAST Clinical History: [...] the left lingular and bilateral lower lobes. [facility]-[id number] * Potassium level (10/10/2017 2:15 PM) Only the most recent of 5 results within the time period is included. Component Value Ref Range Potassium 5.0 3.5 - 5.0 mEq/L Specimen Performing Laboratory Plasma specimen [facility] DEPARTMENT OF PATHOLOGY AND GENOMIC MEDICINE [address] [place] [address] * NM Lung Ventilation Perfusion (10/08/2017 9:48 AM) Specimen Performing Laboratory [facility] [address] [place] [address] Narrative PROCEDURE:NM LUNG VENTILATION PERFUSION INDICATION:Evaluate for [...] be excluded based on this study, however. [facility]-[id number] Procedure Note Interface, Radiology Results Incoming - 10/08/2017 9:59 AM BORING MACHINE OPERATOR DOUBLE END PROCEDURE: NM LUNG VENTILATION PERFUSION INDICATION: Evaluate [...] excluded based on this study , however. [facility]-[id number] * Smear review (10/07/2017 4:15 AM) Only the most recent of 2 results within the time period is included. Component Value Ref Range Platelet slide review Isa slt decr Enlarged platelets Moderate (A) Specimen Performing Laboratory [facility] DEPARTMENT OF PATHOLOGY AND GENOMIC MEDICINE [address] [place] [address] * Urinalysis screen and microscopy, with reflex [...] UA 4 /LPF Specimen Performing Laboratory Urine [facility] DEPARTMENT OF PATHOLOGY AND GENOMIC MEDICINE [address] [place] [address] * Urine culture (10/06/2017 5:40 PM) Only the most recent of 6 results within the time period is included. Component Value Ref Range Urine culture SEE COMMENTComment: Bacteriuria screen negative. Specimen Performing Laboratory [facility] DEPARTMENT OF PATHOLOGY AND GENOMIC MEDICINE [address] [place] [address] * Blood culture, aerobic & anaerobic (10/06/2017 2:00 PM) Only the most recent of 3 results within the time period is included. Component Value Ref Range Blood culture isolate No growth after 5 days of incubation. Comment: Specimen Information Specimen Source: Blood Specimen Site: Forearm, left Specimen Performing Laboratory Blood - Forearm, left [facility] DEPARTMENT OF PATHOLOGY AND GENOMIC MEDICINE [address] [place] [address] * ECG 12 lead (10/06/2017 12:25 PM) Only the most recent of 11 results within the time period is included. Component Value Ref Range Ventricular rate 75 Atrial rate 75 DC interval 140 QRSD interval 118 QT interval 404 QTC interval 451 P axis 1 48 QRS axis 1 106 T wave axis 117 EKG impression Normal sinus rhythm-Right atrial enlargement-Rightward axis-Nonspecific intraventricular conduction delay-Nonspecific T wave abnormality-Abnormal ECG-In automated comparison with ECG of 04-OCT-2017 14:08,-No significant change was found- Specimen Performing Laboratory [facility] MUSE [address] [place] [address] * Echocardiogram 2d limited (10/04/2017 4:25 PM) Specimen Performing Laboratory [facility] [address] [place] [address] Narrative Echocardiography Report [address] [place] [address] Pat.Name:Beatris ISAAC.ID:[id number] .Date: 10/04/2017 Refer.MD:MARCOS PRIDE MD Exam Time: 4:59:00 PMStudy Type:Routine Echo Height:70inWeight:272lb BSA: 2.38 m2 DOBAge:1960 ,56Y Sex: MALEBP: 125/66 HR:77 bpmSonogrphr: Kaycee Ascencio RAINA Pat. Stat.:Inpatient Room:A938 Study Status:Final Echo Event ID:[id number] Order ID:[id number] Reason for Study:Myocardial Ischemia / Infarction - acute ches pain with suspected AK and nondiagnostic ECG with a resting ECHO [...] not well seen. MEASUREMENTS: 2D Parasternal Long [place] Ao An2.2 cmLVPWd 1.5 cm LVOT 2.4 cmLA Ds 3.9 cm LVIDd6 cmIndex 2.5 cm/m Ao Rtd 3.5 cm Index1.5 cm/m LVIDs4.7 cm LV Uelk224.8 g(122-174) LV%fs 22 % LVM Index 197.8 g/m2 IVSd 1.6 cmRWT 0.5 Signed 10/04/2017 05:34 PM Shania Mustafa M.D. Procedure Note Interface, Radiology Results In - 10/04/2017 5:34 PM [facility] Echocardiography Report [address] [facility], [place] [address], [place] [address] [facility].Name: SAM ISAAC Pat.ID: [id number] St.Date: 10/04/2017 Refer.MD: MARCOS PRIDE MD Exam Time: 4:59:00 PM Study Type:Routine Echo Height: 70in Weight: 272lb BSA: 2.38 m2 Age: 2 1960,56Y Sex: MALE BP: 125/66 HR: 77 bpm Sonogrphr: Kaycee Ascencio RDCS Pat. Stat.:Inpatient Room: [facility] Study Status:Final Echo Event ID:[id number] Order ID: [id number] Reason for Study:Myocardial Ischemia / Infarction - acute ches pain with suspected AK and nondiagnostic ECG with a resting ECHO [...] not well seen. MEASUREMENTS: 2D Parasternal Long [place] Ao An 2.2 cm LVPWd 1.5 cm [...] myocardial injury. Specimen Performing Laboratory Plasma specimen [facility] DEPARTMENT OF PATHOLOGY AND GENOMIC MEDICINE [address] [place] [address] * Partial thromboplastin time, activated (10/04/2017 2:22 PM) Only the most recent of 6 results within the time period is included. Component Value Ref Range PTT 23.3 23.0 - 36.0 sec Comment: PTT therapeutic range for unfractionated heparin is 61.0-112.0 seconds which corresponds to Anti-Xa 0.3-0.7 U/ml. Specimen Performing Laboratory Blood [facility] DEPARTMENT OF PATHOLOGY AND GENOMIC MEDICINE [address] [place] [address] * Prothrombin time with INR (10/04/2017 2:22 [...] vein thrombosis/pulmonary embolism. Specimen Performing Laboratory Blood [facility] DEPARTMENT OF PATHOLOGY AND [facility] MEDICINE [address] [place] [address] * Phosphorus level (10/04/2017 2:22 PM) Only the most recent of 13 results within the time period is included. Component Value Ref Range Phosphorus 2.3 (L) 2.4 - 4.5 mg/dL Specimen Performing Laboratory Plasma specimen [facility] DEPARTMENT OF PATHOLOGY AND [facility] MEDICINE [address] [place] [address] * ECG Pre/Post Op-Tomorrow (10/04/2017 11:53 AM) Component Value Ref Range Ventricular rate 78 Atrial rate 78 DC interval 144 QRSD interval 114 QT interval 400 QTC interval 456 P axis 1 44 QRS axis 1 143 T wave axis 110 EKG impression Normal sinus rhythm-Possible Left atrial enlargement-Right axis deviation-Abnormal ECG-In automated comparison with ECG of 29-SEP-2017 19:29,-QT has shortened- Specimen Performing Laboratory [facility]USE [address] [place] [address] * Cv electrophysiology procedure (10/03/2017 11:27 AM) Specimen Performing Laboratory [facility] [address] [place] [address] Narrative TITLE OF PROCEDURE: Single chamber defibrillator [...] a scalpel, cautery, and blunt dissection.Using the [id number] technique and an introducer sheath, a defibrillation [...] right ventricular apical defibrillation lead is a [employer] Mdl-G, model 0296, serial #[id number].Measured R-wave 10.1 mV, pacing threshold 0.8 V, current 0.8 mA, impedance 982 ohms. 2.The defibrillator is a [employer] Dynagen EL ICD model D150, serial #[id number]. 3.Ventricular fibrillation was induced and the patient [...] included. Specimen Performing Laboratory [facility] [address] [place] [address] Narrative Vascular Ultrasound Laboratory Lower Extremity Venous Report [address] [place] [address] Pat.Name:Beatris ISAAC.ID:[id number] .Date: 10/02/2017 Refer.MD:MARCOS NEUMANN MD Exam Time: 5:20:00 PMStudy Type:LE Venous DOBAge:1960,56YSex: MALE Sonogrphr: DAVION Park RCS Pat. Stat.:Inpatient Room:[address] TapeVol: FORT[place]ATO, CPT - 4: [address]3411 Echo Event ID:[id number] Order ID:[id number] Reason for Study:Evaluate for DVT. History of [...] Radiology Results In - 10/02/2017 6:34 PM BORING MACHINE OPERATOR DOUBLE END Vascular Ultrasound Laboratory Lower Extremity Venous Report [address] [place] [address] Pat.Name: SAM ISAAC.ID: [id number] St.Date: 10/02/2017 Refer.MD: MARCOS NEUMANN MD Exam Time: 5:20:00 PM Study Type:LE Venous Age: 2 1960,56Y Sex: MALE Sonogrphr: Riky Lawrence, RVPetra, RCS Pat. Stat.:Inpatient Room: [place] [address] A Tape Vol: FORT[place]ATO, CPT - 4: 01415 Echo Event ID:[id number] Order ID: [id number] Reason for Study:Evaluate for DVT. History of [...] 4:21 PM) Specimen Performing Laboratory [facility] [address] [place] [address] Narrative Echocardiography Report [address] [place] [address] Pat.Name:Beatris ISAAC.ID:[id number] .Date: 10/02/2017 Refer.MD:MARCOS NEUMANN MD Exam Time: 4:15:00 PMStudy Type:Routine Echo Height:70inWeight:280lb BSA: 2.41 m2 DOBAge:1960 ,56Y Sex: MALEBP: 137/72 HR:73 bpmSonogrphr: Kaycee Ascencio RAINA Pat. Stat.:Inpatient Room:[facility] Study Status:Final Echo Event ID:[id number] Order ID:[id number] Reason for Study:HF - Re-eval of known [...] RAPof 10 mmHg. MEASUREMENTS: 2D Parasternal Long [place] LVOT 2.2 cmLA Ds 4.4 cm LVIDd6.6 cmIndex 2.7 cm/m Ao An2.4 cm LVIDs5.8 cmAo Rtd 3 cm Index1.3 cm/m LV%fs 12.1 % LV Qkmt542.4 g(122-174) IVSd 1.4 cmLVM Index 187.7 g/m2 [...] Radiology Results In - 10/02/2017 6:55 PM [facility] Echocardiography Report [address] [address], [place] [address] [facility].Name: SAM ISAAC Sadaf.ID: [id number] .Date: 10/02/2017 Refer.MD: MARCOS NEUMANN MD Exam Time: 4:15:00 PM Study Type:Routine Echo Height: 70in Weight: 280lb BSA: 2.41 m2 Age: 2 1960,56Y Sex: MALE BP: 137/72 HR: 73 bpm Sonogrphr: Kaycee Ascencio, RDCS Pat. Stat.:Inpatient Room: 38 Study Status:Final Echo Event ID:[id number] Order ID: [id number] Reason for Study:HF - Re-eval of known [...] of 10 mmHg. MEASUREMENTS: 2D Parasternal Long [place] LVOT 2.2 cm LA Ds 4.4 cm [...] - 100 % Specimen Performing Laboratory Blood [facility] DEPARTMENT OF PATHOLOGY AND GENOMIC MEDICINE [address] [place] [address] * Urine drugs of abuse screen (09/30/2017 [...] medical purposes only. Specimen Performing Laboratory Urine [facility] DEPARTMENT OF PATHOLOGY AND [facility] MEDICINE [address] [place] [address] * Urinalysis, automated with microscopy (09/30/2017 4:00 [...] None seen UA Specimen Performing Laboratory Urine [facility] DEPARTMENT OF PATHOLOGY AND GENOMIC MEDICINE [address] [place] [address] * Respiratory pathogen panel (09/30/2017 3:22 PM) [...] Specimen Performing Laboratory Nares - Not specified [facility] DEPARTMENT OF PATHOLOGY AND GENOMIC MEDICINE [address] [place] [address] * Hemoglobin A1c (09/30/2017 1:17 PM) Only [...] type 1 diabetes. Specimen Performing Laboratory Blood [facility] DEPARTMENT OF PATHOLOGY AND GENOMIC MEDICINE [address] [place] [address] * CRITICAL CARE (09/30/2017 12:25 AM) Gabriel [...] of the following conditions:Cardiac failure, circulatory failure, EXTRACORPOREAL CIRCULATION SPECIALIST failure or compromise, dehydration, hepatic failure, metabolic [...] 308 U/L Specimen Performing Laboratory Plasma specimen [facility] DEPARTMENT OF PATHOLOGY AND GENOMIC MEDICINE [address] [place] [address] * Comprehensive metabolic panel (09/29/2017 9:56 PM) [...] Protein 7.5 6.3 - 8.3 g/dL Comment: [place] 4.6-7.0 g/dL 1 week 4.4-7.6 g/dL 7 [...] 1.2 mg/dL Specimen Performing Laboratory Plasma specimen [facility] DEPARTMENT OF PATHOLOGY AND GENOMIC MEDICINE [address] [place], [place] [address] * CRITICAL CARE (08/31/2017 10:46 AM) Narrative [...] 7.0 mg/dL Specimen Performing Laboratory Plasma specimen [facility] DEPARTMENT OF PATHOLOGY AND [facility] MEDICINE [address] [place] [address] * Urine eosinophils (08/08/2017 12:24 PM) Only the most recent of 2 results within the time period is included. Component Value Ref Range Eosinophils, urine NONE Specimen Performing Laboratory Urine [facility] DEPARTMENT OF PATHOLOGY AND [facility] MEDICINE [address] [place] [address] * Renin activity (08/08/2017 12:24 PM) Component Value Ref Range Renin activity 31.4 Comment: Specimen diluted and results confirmed. INTERPRETIVE INFORMATION: Renin Activity Adult, Normal sodium diet: Supine ................. 0.2-1.6 ng/mL/hr Upright ................ 0.5-4.0 ng/mL/hr Children, Normal sodium diet, Supine: [place] (1-7 days) ..... 2.0-35.0 ng/mL/hr Cord blood [...] angiotensinogen is decreased. See Compliance Statement D: [email or web address] Performed by [facility], [address] [place] [id number] [email or web address], Abhijit Howell MD - Lab. Director Specimen Performing Laboratory Blood [facility] [address] [place] [address] * Aldosterone, serum (08/08/2017 12:24 PM) Component [...] reference intervals for this test in the [employer] Laboratory Test Directory ([employer]). Performed by [facility], [address] [place] [id number] [email or web address], Abhijit Howell MD - Lab. Director Specimen Performing Laboratory Serum [facility] [address] [place] [address] * Sodium level, urine, random (08/08/2017 12:24 PM) Only the most recent of 2 results within the time period is included. Component Value Ref Range Sodium, urine, random 110 mEq/L Specimen Performing Laboratory Urine [facility] DEPARTMENT OF PATHOLOGY AND GENOMIC MEDICINE [address] [place] [address] * Protein, urine, random (08/08/2017 12:24 PM) Only the most recent of 2 results within the time period is included. Component Value Ref Range Protein, urine random <4 mg/dL Specimen Performing Laboratory Urine [facility] DEPARTMENT OF PATHOLOGY AND GENOMIC MEDICINE [address] [place] [address] * Potassium, urine, random (08/08/2017 12:24 PM) Only the most recent of 2 results within the time period is included. Component Value Ref Range Potassium, urine, random 26.0 mEq/L Specimen Performing Laboratory Urine [facility] DEPARTMENT OF PATHOLOGY AND GENOMIC MEDICINE [address] [place] [address] * Osmolality, urine (08/08/2017 12:24 PM) Only the most recent of 2 results within the time period is included. Component Value Ref Range Osmolality, urine 350 50 - 1,400 mOsm/kg Specimen Performing Laboratory Urine [facility] [place] [address] * Creatinine level, urine, random (08/08/2017 12:24 PM) Only the most recent of 2 results within the time period is included. Component Value Ref Range Creatinine, urine, random 37 mg/dL Specimen Performing Laboratory Urine [facility] [place] [address] * Chloride level, urine, random (08/08/2017 12:24 PM) Only the most recent of 2 results within the time period is included. Component Value Ref Range Chloride, urine, random 105 mEq/L Specimen Performing Laboratory Urine [facility] [place] [address] * Thyroid stimulating hormone (08/08/2017 12:24 PM) Only the most recent of 2 results within the time period is included. Component Value Ref Range TSH 5.53 (H) 0.27 - 4.20 uIU/mL Specimen Performing Laboratory Plasma specimen [facility] [place] [address] * Parathyroid hormone (08/08/2017 12:24 PM) Component Value Ref Range PTH 84 (H) 15 - 65 pg/mL Specimen Performing Laboratory Blood [facility] [place] [address] * Osmolality, serum (08/08/2017 12:24 PM) Component Value Ref Range Osmolality 301 (H) 275 - 295 mOsm/kg Specimen Performing Laboratory Blood [facility] [place] [address] * CBC hemogram (08/08/2017 4:15 AM) Only [...] 0.00 /100 WBC Specimen Performing Laboratory Blood [facility] DEPARTMENT OF PATHOLOGY AND GENOMIC MEDICINE [address] [place] [address] * CT Abdomen Pelvis Wo Contrast (08/03/2017 8:26 PM) Only the most recent of 2 results within the time period is included. Specimen Performing Laboratory [facility] [address] [place] [address] Narrative EXAMINATION:CT ABDOMEN PELVIS WO CONTRAST CLINICAL [...] 4.There is hardware in the lumbar spine. [facility]-[id number] Procedure Note Interface, Radiology Results Incoming - [...] There is hardware in the lumbar spine. [id number] * CRITICAL CARE (08/01/2017 8:54 AM) Narrative [...] Chest (07/31/2017 6:34 PM) Specimen Performing Laboratory [facility] [address] [place] [address] Narrative EXAMINATION:XR ABDOMEN ACUTE INC CHEST CLINICAL HISTORY: Bowel ileus COMPARISON:None. FINDINGS: Heart size is enlarged. There is vascular congestion with basal volume loss and fluid on each side. There are postoperative changes in the lower lumbar spine. There are also surgical clips in the right upper quadrant. Bowel gas pattern is nonspecific. IMPRESSION: As above [facility]-[id number] Procedure Note Interface, Radiology Results Incoming - [...] gas pattern is nonspecific. IMPRESSION: As above [id number] * Ionized calcium (07/19/2017 1:20 AM) Only the most recent of 4 results within the time period is included. Component Value Ref Range pH 7.60 Ionized calcium 1.07 (L) 1.11 - 1.32 mmol/L Specimen Performing Laboratory Plasma specimen [facility] DEPARTMENT OF PATHOLOGY AND GENOMIC MEDICINE [address] [place] [address] * Hepatic function panel (07/19/2017 1:20 AM) [...] 50 U/L Specimen Performing Laboratory Plasma specimen [facility] DEPARTMENT OF PATHOLOGY AND GENOMIC MEDICINE [address] [place] [address] * XR Abdomen 1 Vw Portable (07/17/2017 3:06 PM) Specimen Performing Laboratory [address] [address] Narrative EXAMINATION:XR ABDOMEN 1 VW PORTABLE CLINICAL HISTORY:Check feeding tube placement COMPARISON:None. IMPRESSION: There is a nonspecific bowel gas pattern. No free air is identified. Nasogastric tube terminates in the body the stomach Postoperative changes of lumbar spine The gallbladder has been removed [facility]-[id number] Procedure Note Interface, Radiology Results Incoming - 07/17/2017 4:02 PM CDT EXAMINATION: XR ABDOMEN 1 VW PORTABLE CLINICAL HISTORY: Check feeding tube placement COMPARISON: None. IMPRESSION: There is a nonspecific bowel gas pattern. No free air is identified. Nasogastric tube terminates in the body the stomach Postoperative changes of lumbar spine The gallbladder has been removed [facility]-[id number] * Surgical pathology request (07/17/2017 12:10 PM) Component Value Ref Range Surgical pathology report See link below for PDF Lab Report Specimen Performing Laboratory [facility] DEPARTMENT OF PATHOLOGY AND GENOMIC MEDICINE [address] [place] [address] * Ionized calcium, arterial (07/17/2017 10:10 AM) Component Value Ref Range Ionized calcium, arterial 0.88 (L)Comment: Specimen is slightly hemolyzed. 1.11 - 1.32 mmol/L Interpret results accordingly. Specimen Performing Laboratory Blood [facility] DEPARTMENT OF PATHOLOGY AND [address] [address] * Lactic acid level (07/17/2017 10:10 AM) Only the most recent of 2 results within the time period is included. Component Value Ref Range Lactic acid 1.8 0.5 - 2.2 mmol/L Specimen Performing Laboratory Plasma specimen [facility] [place] [address] * Type and screen (07/17/2017 4:30 AM) Component Value Ref Range ABO grouping O Rh type POS Antibody screen (gel) NEG Specimen Performing Laboratory Blood [facility] [place] [address] * HCV qualitative by PCR (07/14/2017 4:00 AM) Component Value Ref Range HCV PCR result Detected (A) Not-Detected HCV RNA qualitative See link below for PDF Lab ReportComment: Specimen Performing Laboratory [facility] [place] [address] * Hepatitis C antibody (07/14/2017 4:00 AM) Component Value Ref Range Hepatitis C Ab Reactive (A) Non-reactive Comment: HCV antibody testing initially Reactive. Confirmation by HCV RNA PCR will be performed and reported separately when completed. Repeat HCV RNA PCR will not be performed if done within 30 days. Specimen Performing Laboratory Blood [facility] DEPARTMENT OF PATHOLOGY AND [facility] MEDICINE [address] [place] [address] * Hepatitis C virus quantitative by PCR (07/14/2017 4:00 AM) Component Value Ref Range Hepatitis C quantitative, 13,900,000 (A) Not-Detected IU/mL PCR Hepatitis C quantitative, See link below for PDF Lab ReportComment: Case PCR Number: [id number] Specimen Performing Laboratory [facility] DEPARTMENT OF PATHOLOGY [address] [address] * MRI CHOLANGIOGRAM W WO CONTRAST (07/13/2017 10:04 PM) Specimen Performing Laboratory [facility] [address] [address] Narrative EXAMINATION:MRI CHOLANGIOGRAM W WO CONTRAST CLINICAL [...] No evidence of biliary dilatation or choledocholithiasis. [facility]-[id number] Procedure Note [facility], Radiology Results Incoming - 07/13/2017 10:56 PM [...] No evidence of biliary dilatation or choledocholithiasis. [facility]-[id number] * NM Hepatobiliary (HIDA Scan) (07/13/2017 3:07 PM) Specimen Performing Laboratory [address] [address] Narrative PROCEDURE:NM HEPATOBILIARY (HIDA SCAN) INDICATION:Abdominal pain. [...] obstruction. 2.The common bile duct is patent. [facility]-[id number] Procedure Note [facility], Radiology Results Incoming - 07/13/2017 3:23 PM [...] 2. The common bile duct is patent. [facility]-[id number] * Lipase level (07/13/2017 4:00 AM) Component Value Ref Range Lipase 18 13 - 60 U/L Specimen Performing Laboratory Plasma specimen [facility] DEPARTMENT OF PATHOLOGY AND GENOMIC MEDICINE [address] [place] [address] * Amylase level (07/13/2017 4:00 AM) Component Value Ref Range Amylase 22 13 - 53 U/L Specimen Performing Laboratory Plasma specimen [facility] DEPARTMENT OF PATHOLOGY AND GENOMIC MEDICINE [address] [place] [address] * Lipid panel (07/13/2017 4:00 AM) Only [...] (>=200 mg/dL) Specimen Performing Laboratory Plasma specimen [facility] DEPARTMENT OF PATHOLOGY AND GENOMIC MEDICINE [address] [place] [address] * US Gallbladder (07/13/2017 12:54 AM) Specimen Performing Laboratory [facility] [address] [place] [address] Narrative EXAMINATION:US GALLBLADDER CLINICAL HISTORY:Cholecystitis COMPARISON:None. FINDINGS: [...] Common bile duct sonographically within normal limits. [facility]-[id number] Procedure Note Interface, Radiology Results Incoming - [...] Common bile duct sonographically within normal limits. [facility]-[id number] * ECG ED Preliminary Interpretation - NOT AN ORDER (07/12/2017 10:18 PM) Only the most recent of 2 results within the time period is included. Narrative Cha Ibarra MD 07/12/2017 10:18 PM ECG ED Preliminary Interpretation - Not an Order Performed by: SANDRA BANDA Authorized by: BAKSHY, CHA ECG reviewed by ED Physician in the absence of a dispatcher radio: yes Previous ECG: Previous ECG:Compared to current [...] this Stress ECG report.- Specimen Performing Laboratory [facility] MUSE [address] [place] [address] * Nm myocardial perfusion (05/05/2017 8:17 AM) Specimen Performing Laboratory [facility] [address] [place] [address] Narrative Nuclear Cardiology and Cardiac CT [address] [place] [address] Myocardial Perfusion Imaging Report Stress ECG tracings are available in MUSE, EPIC and CV Web All ECG interpretations are included in this report Pat.Name:Beatris ISAAC.ID:[id number] St.Date: 05/05/2017Refer.MD:MARCOS PRIDE MD Exam Time: 8:17:00 AM Study Type:Myocardial Perfusion Imaging Height:70inWeight:285lb BSA: 2.43 m2 DOBAge:1960 ,56Y Sex: MALEBP: 142/86 HR:73 bpmNuclear Tech:MONAE Rebolledo Pat. Stat.:Inpatient Room:[facility] Nuclear Event ID:[id number] Order ID:[id number] Reason for Study:Chest pain, unspecified* History / Clinical:Congestive heart failure, Coronary artery disease, Hyperlipidemia, Hypertension, Obesity Procedures:Two Day Stress / Rest Race:-Moroccan Risk Factors:Known Coronary Atherosclerosis, Hyperlipidemia, Hypertension, Obesity [...] AM CDT Nuclear Cardiology and Cardiac CT [address] [place] [address] Myocardial Perfusion Imaging Report Stress ECG tracings are available in [employer] and [employer] All ECG interpretations are included in this report Pat.Name: SAM ISAAC Pat.ID: [id number] St.Date: 05/05/2017 Refer.MD: MARCOS PRIDE MD Exam Time: 8:17:00 AM Study Type:Myocardial Perfusion Imaging Height: 70in Weight: 285lb BSA: 2.43 m2 Age: 2 1960,56Y Sex: MALE BP: 142/86 HR: 73 bpm Nuclear Tech:MONAE Rebolledo Pat. Stat.:Inpatient Room: [facility] Nuclear Event ID:[id number] Order ID: [id number] Reason for Study:Chest pain, unspecified* History / Clinical:Congestive heart failure, Coronary artery disease, Hyperlipidemia, Hypertension, Obesity Procedures:Two Day Stress / Rest Race: -Moroccan Risk Factors:Known Coronary Atherosclerosis, Hyperlipidemia, Hypertension, Obesity [...] time period is included. Specimen Performing Laboratory [facility] [address] [place] [address] Narrative Examination:XR CHEST 2 VW Clinical history:"R06.02 Shortness of breath, r06.02" Comparison:04/15/2017 IMPRESSION: There is improved aeration of both lung bases.Faint left anterior, basilar pleural thickening versus a small loculated left pleural effusion cannot be excluded.Otherwise, there are no apparent infiltrates or pneumothoraces.The borderline prominent cardiomediastinal silhouette and the imaged bones are stable in appearance. [id number] Procedure Note Hm Interface, Radiology Results Incoming [...] the imaged bones are stable in appearance. [id number] * CT Angiogram Pe Chest (04/15/2017 5:32 AM) Specimen Performing Laboratory [facility] [address] [place] [address] Narrative EXAMINATION:CT ANGIOGRAM PE CHEST CLINICAL HISTORY: [...] AM and acknowledged understanding of the findings. [facility]-[id number] Procedure Note Hm Interface, Radiology Results Incoming [...] AM and acknowledged understanding of the findings. [facility]-[id number] * Cardiac mri heart fx only noncontrast (03/09/2017 2:26 PM) Specimen Performing Laboratory [facility] [address] [place] [address] [facility] CMR Report Patient Patient Name: SAM ISAAC [...] Lateral | Mild/Mod Hypo || || | [place] | Mild/Mod Hypo | ||| + + [...] Phase Contrast Velocity Mapping SETUP TYPE:Clinical INPATIENT:Yes LOCATION:[facility] INCOMPLETE SCAN:No REASON(S) FOR SCAN:CHF/Cardiomyopathy REFERRING PHYSICIAN:1) Marcos Neumann MD ATTENDING PHYSICIAN:Carlton Wing MD TECHNOLOGIST:Chiara Mcnulty [facility] ASSISTANTS:1) Ramiro Avila 2) Brittany CRAIG 3) Gregorio Coe MD BILLING Patient Account [id number] CPT Codes 10121, [ , ]02676 ICD10 Codes I42.8 Procedure Note Interface, Radiology [...] Mild/Mod Hypo | | | | | [place] | Mild/Mod Hypo | | | | [...] Mapping SETUP TYPE: Clinical INPATIENT: Yes LOCATION: [facility] INCOMPLETE SCAN: No REASON(S) FOR SCAN: CHF/Cardiomyopathy REFERRING PHYSICIAN: 1) Marcos Neumann MD ATTENDING PHYSICIAN: Carlton Wing MD TECHNOLOGIST: Chiara Mcnulty [facility] ASSISTANTS: 1) Ramiro Avila 2) Brittany Gates RT 3) Gregorio Coe MD BILLDG Patient Account [id number] CPT Codes 90823, [ , ]45866 ICD10 Codes I42.8 * Homocystine, plasma (03/08/2017 9:14 AM) Component Value Ref Range Homocysteine 6.0 0.0 - 15.0 umol/L Comment: The risk for coronary vascular disease increases progressively with homocysteine concentration. A 3.4 times greater risk is associated with a homocysteine concentration of greater than 15.8 umol/L as compared to a concentration below 14.1 umol/L. Specimen Performing Laboratory Plasma specimen [facility] DEPARTMENT OF PATHOLOGY AND GENOMIC MEDICINE [address] [place] [address] Narrative CMP,MG added and read back to [...] for alternative methods. Specimen Performing Laboratory Blood [facility] DEPARTMENT OF PATHOLOGY AND GENOMIC MEDICINE [address] [place] [address] Narrative CMP,MG added and read back to [facility] in [facility] 03/08/2017 13:21 LMID. * C-reactive protein (03/08/2017 9:14 AM) Component Value Ref Range CRP 0.35 0.00 - 0.50 mg/dL Specimen Performing Laboratory Plasma specimen [facility] DEPARTMENT OF PATHOLOGY AND GENOMIC MEDICINE [address] [place] [address] Narrative CMP,MG added and read back to Nicolasa Offor in 03/08/2017 13:21 LMID. * T3 (03/08/2017 9:14 AM) Component Value Ref Range T3 72 (L) 80 - 200 ng/dL Specimen Performing Laboratory Plasma specimen [facility] DEPARTMENT OF PATHOLOGY AND GENOMIC MEDICINE [address] [place] [address] Narrative CMP,MG added and read back to Nicolasa Offor in 03/08/2017 13:21 LMID. * T4, free (03/08/2017 9:14 AM) Component Value Ref Range T4, free 1.0 0.9 - 1.7 ng/dL Specimen Performing Laboratory Plasma specimen [facility] DEPARTMENT OF PATHOLOGY AND GENOMIC MEDICINE [address] [place] [address] Narrative CMP,MG added and read back to Nicolasa Offor in 03/08/2017 13:21 LMID. * Folate level (03/08/2017 9:14 AM) Component Value Ref Range Folate 16.8 4.8 - 24.2 ng/mL Specimen Performing Laboratory Serum [facility] DEPARTMENT OF PATHOLOGY AND GENOMIC MEDICINE [address] [place] [address] Narrative CMP,MG added and read back to [facility] in 1 03/08/2017 13:21 LMID. * Vitamin B12 level (03/08/2017 9:14 AM) Component Value Ref Range Vitamin B12 753 211 - 946 pg/mL Comment: Significant overlap exists between normal and deficiency states. However, most patients with deficiencies will have Serum B12 <200 pg/mL. Specimen Performing Laboratory Serum [facility] DEPARTMENT OF PATHOLOGY AND GENOMIC MEDICINE [address] [place] [address] Narrative CMP,MG added and read back to [facility] in [facility] 03/08/2017 13:21 LMID. * CT Head Wo Contrast (03/07/2017 4:42 PM) Specimen Performing Laboratory [facility] [address] [place] [address] Narrative EXAMINATION: CT HEAD WO CONTRAST COMPARISON: [...] Stable generalized involutional changes. No gross hemorrhage [facility]-[id number] Procedure Note Interface, Radiology Results Incoming - [...] Stable generalized involutional changes. No gross hemorrhage [facility]-[id number] * Sputum culture (03/05/2017 11:35 PM) Component Value Ref Range Sputum culture isolate Normal oral sienna isolated. Comment: Specimen Information Specimen Source: Sputum Specimen Site: Expectorated Specimen Performing Laboratory Sputum - Expectorated [facility] DEPARTMENT OF PATHOLOGY AND GENOMIC MEDICINE [address] [place] [address] * Gram stain (03/05/2017 11:35 PM) Component Value Ref Range Gram stain isolate Rare WBC's Rare Gram positive rods Many Gram positive cocci in pairs Comment: Specimen Information Specimen Source: Sputum Specimen Site: Expectorated Specimen Performing Laboratory Sputum - Expectorated [facility] DEPARTMENT OF PATHOLOGY AND GENOMIC MEDICINE [address] [place] [address] after 02/10/2017 Insurance Payer Benefit Subscriber ID Type Phone Address Plan / Group [employer] MEDICAID [employer] xxxxxxxxx O COMM STAR+ ALEJANDRA Home: [address] [place], [place] [phone] [address]
[2018-02-11] MEDS ORDERED: VARENICLINE 1 MG TAB PO PRN (07:00)
[2018-02-11] MEDS: ALBUTEROL/IPRATROPIUM 3 ML NEB NEB SCH ×5 (07:00→23:33)
[2018-02-11] MEDS ORDERED: HYDRALAZINE HCL 20 MG/ML VIAL IV PRN (08:30)
[2018-02-11] MEDS ORDERED: BENZONATATE 100 MG CAP PO PRN (08:30)
[2018-02-11] MEDS: BISACODYL 5 MG TAB EC PO SCH (09:00)
[2018-02-11] MEDS: PANTOPRAZOLE SOD 40 MG TABEC PO SCH (09:21)
[2018-02-11] MEDS: LISINOPRIL 10 MG TAB PO SCH ×2 (09:21→18:28)
[2018-02-11] MEDS: FUROSEMIDE 40 MG TAB PO SCH ×2 (09:21→18:27)
[2018-02-11] MEDS: MAGNESIUM OXIDE 400 MG TAB PO SCH (09:21)
[2018-02-11] MEDS: CARVEDILOL 3.125 MG TAB PO SCH ×2 (09:21→18:27)
[2018-02-11] MEDS: AZITHROMYCIN 500MG/NS 250 ML 250 ML IV SCH (09:21)
[2018-02-11] MEDS: ASPIRIN 81 MG CHEW TAB PO SCH (09:21)
[2018-02-11] MEDS: APIXABAN 5 MG TABLET PO SCH ×2 (09:21→18:27)
[2018-02-11] MEDS: INSULIN REGULAR, HUMAN 100 UNIT/1 ML 3ML VIAL SQ SCH ×4 (09:21→20:59)
[2018-02-11 10:11] LABS: ABG PH 7.24 (7.31-7.41)
[2018-02-11 10:12] LABS: ABG HCO3 40 mmol/L (23-28); ABG PCO2 94 mmHg (41-51); ABG PO2 82 mmHg (80-105)
[2018-02-11] MEDS ORDERED: METHYLPREDNISOLONE SOD SUCC 40 MG/ML VIAL IV SCH (12:00)
[2018-02-11] MEDS: LORATADINE/PSEUDOEPHEDRINE 24 HR SR TAB PO SCH (12:20)
[2018-02-11] MEDS: CEFTRIAXONE SOD 1 GM VIAL IV SCH ×2 (12:20→20:57)
[2018-02-11] MEDS: GUAIFENESIN 600MG/DEXTROMETHORPHAN 30MG TABSR PO SCH ×2 (12:20→18:28)
[2018-02-11 14:03] LABS: CREATINE KINASE MB 5.1 ng/mL (0-5.0)
--- NOTE | 2018-02-11 14:04 | Consultation ---
DATE OF CONSULTATION: February 11, 2018 PULMONARY MEDICINE CONSULT REFERRING PHYSICIAN: Dr. Douglas. HISTORY: Mr. Tatum is a pleasant 57-year-old male who sees me in clinic with acute respiratory failure. Patient was hospitalized after presenting to emergency room early this morning. Patient had chest tightness. Patient had onset worse for 4 days. He had recently been hospitalized and I was also taking care of him there but he had only a few good days until he rebounded into dyspnea. He did receive his positive airway pressure device at home in the interim. This time when he came to the hospital his heart rate is 124, 100% saturation on 4 liters per minute. He is oriented. Chest x-ray suggests stable mild pulmonary edema and bibasilar atelectasis. Patient was admitted. However, in less than 2 hours patient went increasingly encephalopathic. He was not responding to sternal rub. Emergency BiPAP was started, 7.24/94/82/40 bicarbonate. I am consulted. He started to wake up again. PAST MEDICAL HISTORY: Ischemic cardiomyopathy, ICD placement, hypertension, diabetes, hyperlipidemia, history of DVT both extremities upper, obstructive sleep apnea, obesity hypoventilation, possible asthma. MEDICATIONS: Medication list reviewed per electronic record. ALLERGIES: NO KNOWN DRUG ALLERGIES. SOCIAL HISTORY: No active smoking, no drinking, no drugs. Smoked since age 11, but quit 1 year ago. He is . FAMILY HISTORY: Noncontributory. REVIEW OF SYSTEMS: Cannot get as is on respiratory assist device. OBJECTIVE VITALS: Afebrile, vital signs are noted per electronic record. GENERAL: No acute distress, but on respiratory assist device and anxious. HEENT: Normocephalic, atraumatic. NECK: Supple. Throat midline. LUNGS: Bilateral air entry, few rhonchi, small to moderate. Good air entry. CARDIOVASCULAR: S1, S2. No murmurs, rubs, or gallops. ABDOMEN: Soft, nontender. EXTREMITIES: No clubbing, no cyanosis, there is 1+ to 2+ edema. INTEGUMENT: No rash, no purpura. LABS: White count 8, 40 hematocrit, 155 platelets. Potassium 3.9, 38 bicarbonate, 1.25 creatinine. Glucose 251. CK was 298, albumin 3.1. BMP was 326. IMPRESSION AND PLAN 1. Acute respiratory failure. 2. Encephalopathy. 3. Systolic congestive heart failure, advanced. 4. Obesity hypoventilation. 5. Obstructive sleep apnea. 6. Possible asthma. 7. History of other problems as stated. 8. Former smoker Will continue serial neurologic exams. Continue BiPAP for salvage and support. Patient will remain on bronchodilators while watching his heart rate and levels of cardiac stress. Antibiotics are reasonable and should be continued. DVT prophylaxis. Thank you very much Dr. Douglas for this consult. I remain available for questions if there are any. Job#: [id number] ZAHRA TINAJERO
--- NOTE | 2018-02-11 16:26 | Diagnostic Imaging Report ---
EXAMINATION: Head CT HISTORY: Status post fall, head trauma, pain COMPARISON: None. TECHNIQUE: Multidetector axial images were obtained without contrast from the foramen magnum to the vertex . The images were reconstructed using brain and bone algorithms. Thin section brain images were reformatted into coronal and sagittal planes. Motion/streaking artifact limits the evaluation of the skull base and posterior cranial fossa. FINDINGS: Parenchyma: 1. No abnormal densities. 2. No mass or hemorrhage. No CT evidence of acute territorial vascular insult. Extra-axial spaces:No abnormal density. No extra-axial fluid collections Brain volume: Normal for age. Ventricles: No hydrocephalus or displacement. Arteries: No density suggestive of thrombus. Dural sinuses: No abnormal density. Extra-axial spaces: No abnormal density. Foramen magnum: No mass, Chiari malformation, or basilar invagination. Sella: No obvious mass. Paranasal/mastoid sinuses: Imaged portions unremarkable. Skull/Scalp: No lytic or blastic lesions. No fractures. IMPRESSION: No intracranial abnormalities, particularly no post traumatic hemorrhage. Signed by: Dr. No Stout M.D. on 02/11/2018 4:23 PM
--- NOTE | 2018-02-11 20:03 | History and Physical ---
PRIMARY CARE PROVIDER: Dr. Cristino Bryant CHIEF COMPLAINT: Respiratory distress. HISTORY OF PRESENT ILLNESS: Mr. Tatum is a 57-year-old gentleman presenting with respiratory distress, shortness of breath, wheezing and cough. REVIEW OF SYSTEMS: He denies fever, chills or weight loss. He denies sinus congestion or sore throat. He denies chest pain or palpitations. He has shortness breath, wheezing and cough. He denies abdominal pain, nausea, vomiting or melena. He denies dysuria or flank pain. He denies rash or pruritus. He denies joint pain or swelling. He denies bleeding or bruising. He denies headache, vertigo or loss of consciousness. He denies depression, agitation, homicidal or suicidal ideation. PAST MEDICAL HISTORY: Significant for longstanding hypertension, type-2 diabetes, chronic systolic heart failure, unknown ejection fraction, but he did have an AICD placed last year. He also had bilateral upper extremity DVTs in 2017. He has a history of AICD defibrillator placement, back surgery and cholecystectomy. MEDICATIONS: His regular medications include: 1. Aspirin 81 mg daily. 2. Lipitor 10 mg at bedtime. 3. Coreg 6.125 mg twice a day. 4. Clonidine 0.1 mg as needed. 5. Lasix 40 mg twice daily. 6. Lisinopril 10 mg twice daily. 7. Magnesium oxide 400 mg daily. 8. Protonix 40 mg daily. 9. Zoloft 100 mg at bedtime. 10. Tramadol as needed. 11. Eliquis 5 mg twice daily. 12. Entresto 24 per 26 p.o. b.i.d. ALLERGIES: HE HAS NO KNOWN DRUG ALLERGIES. FAMILY HISTORY: Significant for hypertension and diabetes. SOCIAL HISTORY: The patient is . [place]alese is his primary language. He quit smoking a year ago. He does not drink or use illegal drugs. He is generally independently functioning. He did smoke from age 11 to age 56. PHYSICAL EXAMINATION PSYCHIATRIC: He is alert and oriented times 3 with normal mood and affect. CONSTITUTIONAL: He has a normal body habitus. He is in no acute distress. VITAL SIGNS: Blood pressure 154/96. Pulse rate 112 and regular. Respiratory rate 20. O2 sat 93%. He was satting 89% initially. Temperature 97.5. HEENT: Atraumatic. His eyes are anicteric with clear conjunctivae. He has a BiPAP mask in place. Oropharynx is clear. NECK: Supple. No mass or thyromegaly. LYMPHATIC SYSTEM: He has no palpable cervical, axillary or inguinal adenopathy. CARDIOVASCULAR: His heart has a regular tachycardia without murmur or extra heart sound. He has no carotid bruit. He has trace bipedal edema. He has weak dorsal pedal pulses. RESPIRATORY: Lungs reveal markedly diminished breath sounds throughout with prolonged expirations, some expiratory wheezing with forced expiration, and a dry cough. He has some mild respiratory distress and excess work of breathing. GASTROINTESTINAL: His abdomen is soft without organomegaly, masses or tenderness. He has normal bowel sounds present. CUTANEOUS: His skin is warm and dry to touch with no rash or skin breakdown. MUSCULOSKELETAL: His joints are in normal alignment without erythema or swelling. He has no calf tenderness. NEUROLOGIC: Exam is nonfocal with intact cranial nerves and no motor or sensory deficits. DIAGNOSTIC STUDIES: His CT scan of brain showed no acute disease. Chest x-ray shows cardiomegaly and mild pulmonary edema that is unchanged from a month ago. His ABG initially pH 7.24, pCO2 of 94, pO2 82. Troponin 0.063, 0.073. BNP 326.3. His chemistry shows normal electrolytes. CO2 38, which is high. Creatinine 1.25 and BUN 10 for normal GFR. Calcium is 8.6. Glucose is 210. Transaminases, bilirubin and alk phos are normal. CBC shows a white count of 7.88 with a normal differential. Hemoglobin 11.9, hematocrit 40.5 and platelets 155,000. Coags are normal. IMPRESSION AND PLAN 1. Acute hypercapnic respiratory failure. The patient has been placed on BiPAP and supplemental oxygen. 2. Acute exacerbation of chronic obstructive pulmonary disease. The patient is on aggressive nebulizer treatments, IV Solu-Medrol, IV Zithromax and Mucinex for expectoration. 3. Hypertension with chronic systolic heart failure. The patient is stable. Will continue lisinopril, Coreg, Lasix. Entresto is not on formulary. Will use hydralazine instead. 4. Type-2 diabetes. The patient is diet controlled at home apparently. Here we will use sliding scale insulin in view of the steroids. Will check an A1c level to see what kind of control he has at home. 5. Recent deep venous thrombosis a few months ago. The patient will continue on his Eliquis. 6. For prophylaxis, the patient is on Eliquis for DVT prophylaxis and Protonix for GI prophylaxis. Job#: [id number]
[2018-02-11] MEDS: ATORVASTATIN 10 MG TAB PO SCH (20:57)
[2018-02-11] MEDS: SERTRALINE HCL 100 MG TAB PO SCH (20:57)
[2018-02-11] MEDS: METHYLPREDNISOLONE SOD SUCC 40 MG/ML VIAL IV SCH (20:59)
[2018-02-11 22:43] LABS: CREATINE KINASE MB 4.3 ng/mL (0-5.0)
[2018-02-12] VITALS (8 sets, daily range): BP systolic 113–136; BP diastolic 77–101
[2018-02-12] MEDS: GUAIFENESIN 600MG/DEXTROMETHORPHAN 30MG TABSR PO SCH ×4 (02:20→17:53)
[2018-02-12] MEDS: ALBUTEROL/IPRATROPIUM 3 ML NEB NEB SCH ×6 (03:20→23:30)
[2018-02-12 06:41] LABS: HEMATOCRIT 39.5 % (38.2-49.6); HEMOGLOBIN 11.6 g/dL (14.0-18.0); LYMPHOCYTES # (AUTO) 1.2 (1.0-3.2); MEAN CORPUSCULAR HEMOGLOBIN 26.2 pg (28-32); MEAN CORPUSCULAR HGB CONC 29.4 g/dL (31-35); MEAN CORPUSCULAR VOLUME 89.2 fL (81-99); MONOCYTES # (AUTO) 0.1 (0.2-0.8); MONOCYTES % 0.8 % (4.4-11.3); NEUTROPHILS % 82.8 % (38.7-80.0); PLATELET COUNT 185 x10e3/uL (140-360); RED BLOOD COUNT 4.43 x10e6/uL (4.3-5.7); RED CELL DISTRIBUTION WIDTH 13.8 % (11.7-14.4)
[2018-02-12 07:03] LABS: ANION GAP 11.5 mmol/L (8-16); BLOOD UREA NITROGEN 14 mg/dL (7-26); BUN/CREATININE RATIO 11 (6-25); CALCIUM 8.8 mg/dL (8.4-10.2); CARBON DIOXIDE 38 mmol/L (22-29); CHLORIDE 95 mmol/L (98-107); CREATININE, SERUM 1.26 mg/dL (0.72-1.25); EST GLOMERULAR FILTRATION RATE > 60 ML/MIN (60-); GLUCOSE 190 mg/dL (74-118); POTASSIUM 4.5 mmol/L (3.5-5.1); SODIUM 140 mmol/L (136-145)
[2018-02-12 07:37] LABS: CHOL/HDL RATIO 2.6 (3.9-4.7); MAGNESIUM 1.5 MG/DL (1.3-2.1)
[2018-02-12 07:51] LABS: CREATINE KINASE MB 2.9 ng/mL (0-5.0); FREE T4 (FREE THYROXINE) 1.11 ng/dL (0.9-1.8); THYROID STIMULATING HORMONE 0.465 uIU/mL (0.350-4.940)
[2018-02-12] MEDS: AZITHROMYCIN 500MG/NS 250 ML 250 ML IV SCH (09:04)
--- NOTE | 2018-02-12 09:04 | Consultation ---
DATE OF CONSULTATION: February 11, 2018 CARDIOLOGY CONSULTATION REASON FOR CONSULTATION: Chest pain and tachycardia. HPI: This is a 57-year-old male that presented with shortness of breath. According to the patient and the at the bedside, he started having shortness of breath, wheezing and cough that he was brought to the emergency room for evaluation. He has a history of chronic COPD. Uses home CPAP. Also, history of chronic systolic heart failure with an ICD placement. He also complained of chest pain on a scale of 7/10 that got worse with coughing, but with no radiation. Troponin was negative. EKG was sinus tachycardia with no S/T abnormalities. BNP was 354. Chest x-ray showed normal x-ray. V/Q scan for low probably for PE. PAST MEDICAL HISTORY: Schizophrenia, CKD, GERD, asthma, obesity, systolic CHF with EF 25% to 30%, cardiomyopathy, ICD placement, hypertension, diabetes, hyperlipidemia, DVT to bilateral upper extremities, and recent cardiac catheterization at the [facility]. PAST SURGICAL HISTORY: Cholecystectomy and AICD placement. FAMILY HISTORY: Positive for hypertension. SOCIAL HISTORY: He quit smoking and he lives at home with the . MEDICATIONS: See med list. ALLERGIES: HE IS NOT ALLERGIC TO ANY MEDICATION. REVIEW OF SYSTEMS: Negative except those mentioned above. Positive for shortness of breath. PHYSICAL EXAMINATION VITAL SIGNS: Temperature 97, heart rate 90, blood pressure 123/90, respirations 16, oxygen saturation 100% on BiPAP. GENERAL: He is morbidly obese, awake, alert, and oriented times 3. HEENT: Mucous membrane moist. NECK: Supple. LUNGS: Bilateral with decreased breath sounds. CARDIOVASCULAR: S1 and S2 present. ABDOMEN: Soft. NEUROLOGICAL: Intact. EXTREMITIES: No edema. LABS: Sodium 140, potassium 4.5, chloride 95, CO2 38, BUN 14, creatinine 1.26, glucose 190. White blood cells 7.24, hemoglobin 11.6, hematocrit 39.5, and platelets 185,000. PT 12.5, PTT 29.1 and INR 1.01. IMPRESSION 1. Acute exacerbation of chronic obstructive pulmonary disease. 2. Systolic congestive heart failure exacerbation. 3. Implantable cardioverter defibrillator. 4. Cardiomyopathy. 5. Hypertension. 6. Diabetes. 7. Obesity. 8. History of bilateral upper extremity deep venous thrombosis. ASSESSMENT AND PLAN: He was admitted here in October with EF of 25% to 30%. Will continue beta mauricio and diuretics. Troponin was negative. Further cardiac workup pending clinical course. Thank you for this consultation. DICTATED BY MICAH BARKLEY NP Job#: [id number] RI
[2018-02-12] MEDS: INSULIN REGULAR, HUMAN 100 UNIT/1 ML 3ML VIAL SQ SCH ×4 (09:05→21:07)
[2018-02-12] MEDS: ASPIRIN 81 MG CHEW TAB PO SCH (09:49)
[2018-02-12] MEDS: LORATADINE/PSEUDOEPHEDRINE 24 HR SR TAB PO SCH (09:49)
[2018-02-12] MEDS: FUROSEMIDE 40 MG TAB PO SCH ×2 (09:50→17:39)
[2018-02-12] MEDS: BISACODYL 5 MG TAB EC PO SCH (09:50)
[2018-02-12] MEDS: APIXABAN 5 MG TABLET PO SCH ×2 (09:50→17:39)
[2018-02-12] MEDS: MAGNESIUM OXIDE 400 MG TAB PO SCH (09:50)
[2018-02-12] MEDS: CARVEDILOL 3.125 MG TAB PO SCH ×2 (09:50→17:39)
[2018-02-12] MEDS: LISINOPRIL 10 MG TAB PO SCH ×2 (09:51→17:39)
[2018-02-12] MEDS: PANTOPRAZOLE SOD 40 MG TABEC PO SCH (09:51)
[2018-02-12] MEDS: CEFTRIAXONE SOD 1 GM VIAL IV SCH ×2 (10:26→21:06)
[2018-02-12] MEDS: METHYLPREDNISOLONE SOD SUCC 40 MG/ML VIAL IV SCH ×2 (10:26→21:06)
[2018-02-12] MEDS ORDERED: MAGNESIUM SULFATE 2GM/50ML 50 ML IV ONE (17:30)
[2018-02-12] MEDS: ATORVASTATIN 10 MG TAB PO SCH (21:06)
[2018-02-12] MEDS: SERTRALINE HCL 100 MG TAB PO SCH (21:06)
--- NOTE | 2018-02-12 23:17 | Progress Note ---
DATE: February 12, 2018 PULMONARY MEDICINE PROGRESS NOTE SUBJECTIVE: Mr. Tatum was seen and examined at bedside. He continues to be on BiPAP for . He remains with some shortness of breath issues. FiO2 40% noted. Patient seems to be oriented, resting in bed, although on the BiPAP it is unlabored. Patient does have oxygen saturation drop when off the BiPAP. REVIEW OF SYSTEMS: No bleeding, no double vision. OBJECTIVE VITALS: Afebrile. Vital signs noted per the chart record. GENERAL: In no acute distress. Alert and calm on the BiPAP. HEENT: Normocephalic and atraumatic. NECK: Supple. Throat midline. LUNGS: Bilateral air entry. Few rhonchi. CARDIOVASCULAR: S1 and S2. No murmurs, rubs, or gallops. ABDOMEN: Soft, nontender, and obese. EXTREMITIES: No clubbing. No cyanosis. There is 1 to 2+ edema. INTEGUMENT: No rash. No purpura. LABS: BUN 14, creatinine 1.3, bicarbonate 38, potassium 4.5. Chest x-ray with left-sided infiltrate/edema. IMPRESSIONS 1. Acute respiratory failure, bilevel positive airway pressure salvage. 2. Obstructive sleep apnea. 3. Obesity hypoventilation syndrome. 4. Treat for asthma with exacerbation. 5. History of pneumonia. 6. Deconditioning. 7. Ischemic cardiomyopathy. PLAN 1. Continue to diurese the patient slowly. 2. Kidney functions are stable. 3. We will follow on closely on diuretic and we will give Diamox for now. 4. Wean steroids. 5. Continue bronchodilators. 6. Consider increase in the BiPAP pressure for comfort. 7. Repeat chest x-ray in the morning. 8. We will follow up and hopefully get more progress. 9. We will try to wean off the BiPAP. Job#: [id number]
[2018-02-13] VITALS (7 sets, daily range): BP systolic 127–143; BP diastolic 82–98
[2018-02-13] MEDS: GUAIFENESIN 600MG/DEXTROMETHORPHAN 30MG TABSR PO SCH ×4 (00:25→18:04)
[2018-02-13] MEDS: ALBUTEROL/IPRATROPIUM 3 ML NEB NEB SCH ×5 (03:20→23:10)
[2018-02-13] MEDS: AZITHROMYCIN 500MG/NS 250 ML 250 ML IV SCH (05:49)
--- NOTE | 2018-02-13 05:51 | Diagnostic Imaging Report ---
CHEST SINGLE (PORTABLE), 02/13/2018 5:00 AM Technique: CHEST SINGLE (PORTABLE) Comparison: 02/11/2018 Clinical history: Pneumonia Findings: See Impression Impression: Limited by soft tissue attenuation/body habitus and portable technique. 1. Lines/Tubes: Stable left chest wall ICD. 2. Stable enlarged cardiac silhouette. 3. Left basilar opacity which may be due to atelectasis or consolidation. Question underlying pleural fluid. Signed by: Dr Vicki Mehta MD on 02/13/2018 5:47 AM
[2018-02-13 06:32] LABS: HEMATOCRIT 39.8 % (38.2-49.6); LYMPHOCYTES # (AUTO) 1.4 (1.0-3.2); LYMPHOCYTES % 10.1 % (18.0-39.1); MEAN CORPUSCULAR HEMOGLOBIN 26.3 pg (28-32); MEAN CORPUSCULAR HGB CONC 30.2 g/dL (31-35); MEAN CORPUSCULAR VOLUME 87.3 fL (81-99); MONOCYTES # (AUTO) 0.3 (0.2-0.8); MONOCYTES % 2.3 % (4.4-11.3); NEUTROPHILS # (AUTO) 12.1 (2.1-6.9); PLATELET COUNT 190 x10e3/uL (140-360); RED BLOOD COUNT 4.56 x10e6/uL (4.3-5.7); RED CELL DISTRIBUTION WIDTH 14.2 % (11.7-14.4)
[2018-02-13] MEDS ORDERED: MORPHINE SULFATE 2 MG/ML SYR IV SCH (06:45)
[2018-02-13] MEDS ORDERED: MORPHINE SULFATE 5 MG/ML VIAL IV ONE (06:45)
[2018-02-13 07:06] LABS: ANION GAP 11.6 mmol/L (8-16); CREATININE, SERUM 1.46 mg/dL (0.72-1.25); MAGNESIUM 2.2 MG/DL (1.3-2.1); PHOSPHORUS 2.9 MG/DL (2.3-4.7); POTASSIUM 4.6 mmol/L (3.5-5.1)
[2018-02-13] MEDS: INSULIN REGULAR, HUMAN 100 UNIT/1 ML 3ML VIAL SQ SCH ×4 (07:30→21:17)
[2018-02-13] MEDS ORDERED: ACETAZOLAMIDE SODIUM 500 MG/VIAL IV ONE (08:15)
[2018-02-13] MEDS ORDERED: CARVEDILOL 3.125 MG TAB PO SCH (09:00)
[2018-02-13] MEDS: CEFTRIAXONE SOD 1 GM VIAL IV SCH ×2 (09:07→21:16)
[2018-02-13] MEDS: APIXABAN 5 MG TABLET PO SCH ×2 (09:08→18:03)
[2018-02-13] MEDS: ASPIRIN 81 MG CHEW TAB PO SCH (09:08)
[2018-02-13] MEDS: BISACODYL 5 MG TAB EC PO SCH (09:08)
[2018-02-13] MEDS: FUROSEMIDE 40 MG TAB PO SCH ×2 (09:08→18:03)
[2018-02-13] MEDS: LORATADINE/PSEUDOEPHEDRINE 24 HR SR TAB PO SCH (09:08)
[2018-02-13] MEDS: MAGNESIUM OXIDE 400 MG TAB PO SCH (09:12)
[2018-02-13] MEDS: PREDNISONE 20 MG TAB PO SCH (09:12)
[2018-02-13] MEDS: PANTOPRAZOLE SOD 40 MG TABEC PO SCH (09:12)
[2018-02-13] MEDS: CARVEDILOL 12.5 MG TAB PO SCH ×2 (09:31→18:06)
[2018-02-13] MEDS: LISINOPRIL 10 MG TAB PO SCH ×2 (09:32→18:06)
[2018-02-13] MEDS: NYSTATIN/TRIAMCINOLONE 15 GM CR TOP SCH (11:00)
--- NOTE | 2018-02-13 18:48 | Progress Note ---
DATE: February 13, 2018 PULMONARY MEDICINE PROGRESS NOTE SUBJECTIVE: Mr. Tatum was seen and examined at bedside. He remains BiPAP dependent up to this morning. We gave some additional IV diuretics. Over the course of the day, we have brought him down to 7 liters per minute per high-flow nasal cannula. Patient is feeling slightly better. He is still very weak however. He feels that he has good appetite though. There was also rapid response called earlier due to appearance of tachycardia that was intermittent and feeling of malaise. He is better now. REVIEW OF SYSTEMS: No headaches, no diarrhea. OBJECTIVE VITALS SIGNS: Afebrile. Vital signs noted per electronic record. GENERAL: No acute distress, alert and calm. HEENT: Normocephalic, atraumatic. NECK: Supple. Throat midline. LUNGS: Bilateral air entry, no wheezes or rhonchi. CARDIOVASCULAR: S1, S2. No murmurs, rubs, or gallops. ABDOMEN: Soft, nontender. EXTREMITIES: No clubbing, no cyanosis. There is still the 1+ to 2+ edema. INTEGUMENT: No rash. No purpura. LABS: BUN 23, creatinine 1.5, potassium 4.6. White count 14, hematocrit 39, platelets 190. IMPRESSION AND PLAN 1. Acute respiratory failure, on BiPAP salvage. He is finally off BiPAP this morning. 2. Fluid overload. 3. Pneumonia. 4. Weakness. 5. Obesity. 6. Smoker. At this time we will continue current treatment. Continue weaning down the BiPAP. Patient getting oxygen and we will wean this down too. Repeat electrolytes tomorrow. Continue giving more Diamox for the edema and the acidosis. Job#: [id number] ZAHRA
[2018-02-13] MEDS: SERTRALINE HCL 100 MG TAB PO SCH (21:16)
[2018-02-13] MEDS: ATORVASTATIN 10 MG TAB PO SCH (21:16)
[2018-02-14] VITALS (8 sets, daily range): BP systolic 117–141; BP diastolic 59–106
[2018-02-14] MEDS: GUAIFENESIN 600MG/DEXTROMETHORPHAN 30MG TABSR PO SCH ×5 (00:22→23:50)
[2018-02-14] MEDS: ALBUTEROL/IPRATROPIUM 3 ML NEB NEB SCH ×6 (03:35→22:34)
[2018-02-14] MEDS: AZITHROMYCIN 500MG/NS 250 ML 250 ML IV SCH (06:23)
[2018-02-14 06:39] LABS: BASOPHILS % 0.1 % (0.0-1.0); HEMATOCRIT 39.6 % (38.2-49.6); HEMOGLOBIN 12.1 g/dL (14.0-18.0); LYMPHOCYTES # (AUTO) 2.5 (1.0-3.2); LYMPHOCYTES % 15.8 % (18.0-39.1); MEAN CORPUSCULAR HEMOGLOBIN 26.7 pg (28-32); MEAN CORPUSCULAR HGB CONC 30.6 g/dL (31-35); MEAN CORPUSCULAR VOLUME 87.4 fL (81-99); MONOCYTES # (AUTO) 0.8 (0.2-0.8); MONOCYTES % 5.1 % (4.4-11.3); NEUTROPHILS # (AUTO) 12.4 (2.1-6.9); NEUTROPHILS % 78.6 % (38.7-80.0); PLATELET COUNT 199 x10e3/uL (140-360); RED BLOOD COUNT 4.53 x10e6/uL (4.3-5.7); RED CELL DISTRIBUTION WIDTH 14.4 % (11.7-14.4)
[2018-02-14 06:58] LABS: ANION GAP 11.6 mmol/L (8-16); CREATININE, SERUM 1.54 mg/dL (0.72-1.25); MAGNESIUM 2.4 MG/DL (1.3-2.1); POTASSIUM 4.6 mmol/L (3.5-5.1)
[2018-02-14] MEDS: INSULIN REGULAR, HUMAN 100 UNIT/1 ML 3ML VIAL SQ SCH ×4 (07:33→20:43)
[2018-02-14] MEDS: CEFTRIAXONE SOD 1 GM VIAL IV SCH ×2 (08:36→20:49)
[2018-02-14] MEDS: ASPIRIN 81 MG CHEW TAB PO SCH (08:36)
[2018-02-14] MEDS: LORATADINE/PSEUDOEPHEDRINE 24 HR SR TAB PO SCH (08:36)
[2018-02-14] MEDS: BISACODYL 5 MG TAB EC PO SCH (08:36)
[2018-02-14] MEDS: APIXABAN 5 MG TABLET PO SCH ×2 (08:37→16:53)
[2018-02-14] MEDS: LISINOPRIL 10 MG TAB PO SCH ×2 (08:37→17:05)
[2018-02-14] MEDS: FUROSEMIDE 40 MG TAB PO SCH ×2 (08:37→16:53)
[2018-02-14] MEDS: NYSTATIN/TRIAMCINOLONE 15 GM CR TOP SCH (08:38)
[2018-02-14] MEDS: CARVEDILOL 12.5 MG TAB PO SCH ×2 (08:38→17:05)
[2018-02-14] MEDS: MAGNESIUM OXIDE 400 MG TAB PO SCH (08:41)
[2018-02-14] MEDS: PANTOPRAZOLE SOD 40 MG TABEC PO SCH (08:41)
[2018-02-14] MEDS: PREDNISONE 20 MG TAB PO SCH (08:41)
[2018-02-14] MEDS ORDERED: ACETAZOLAMIDE SODIUM 500 MG/VIAL IV ONE (13:00)
--- NOTE | 2018-02-14 13:27 | Progress Note ---
DATE: February 14, 2018 PULMONARY MEDICINE PROGRESS NOTE SUBJECTIVE: Mr. Tatum was seen and examined at bedside. He continues to feel better. He is wearing BiPAP at night. However, in the daytime, he is still able to come off the machine. He currently is on 6 L per minute nasal cannula oxygen, 98% oxygen saturation. He had 1 bowel movement. He is eating the majority of his diet. REVIEW OF SYSTEMS: No bleeding. No rash. OBJECTIVE VITALS SIGNS: Afebrile. Vital signs noted per electronic record. GENERAL: No acute distress, alert and calm. HEENT: Normocephalic, atraumatic. NECK: Supple. Throat midline. LUNGS: Bilateral air entry. Decreased breath sounds at base. No rhonchi. Limited auscultation. CARDIOVASCULAR: S1, S2. No murmurs, rubs, or gallops. ABDOMEN: Soft, nontender. EXTREMITIES: No clubbing, no cyanosis. There is 1+ edema in the legs. INTEGUMENT: No rash. No purpura. LABS: Potassium 4.6, 32 BUN, 1.5 creatinine, 16 white count, 39 hematocrit, 199 platelets. IMPRESSION AND PLAN 1. Bronchitis with exacerbation. 2. Possible pneumonia. 3. Fluid overload. 4. [id number] kidney disease. 5. Systolic cardiomyopathy. 6. Acute respiratory failure, resolving slowly. Continue weaning down oxygen. Mobilize the patient more. Continue diet. Follow up electrolytes in the morning. Give him an extra dose of Diamox diuretic today and continue the Lasix diuretic. Slow improvement. Job#: [id number]
[2018-02-14] MEDS: ATORVASTATIN 10 MG TAB PO SCH (20:49)
[2018-02-14] MEDS: SERTRALINE HCL 100 MG TAB PO SCH (20:49)
[2018-02-15] VITALS (9 sets, daily range): BP systolic 103–138; BP diastolic 74–91
[2018-02-15] MEDS: ALBUTEROL/IPRATROPIUM 3 ML NEB NEB SCH ×6 (01:36→23:50)
[2018-02-15] MEDS: AZITHROMYCIN 500MG/NS 250 ML 250 ML IV SCH (06:22)
[2018-02-15] MEDS: GUAIFENESIN 600MG/DEXTROMETHORPHAN 30MG TABSR PO SCH ×3 (06:22→18:29)
[2018-02-15 07:43] LABS: BASOPHILS % 0.1 % (0.0-1.0); EOSINOPHILS % 0.1 % (0.0-6.0); HEMATOCRIT 38.6 % (38.2-49.6); HEMOGLOBIN 11.8 g/dL (14.0-18.0); LYMPHOCYTES # (AUTO) 2.8 (1.0-3.2); MEAN CORPUSCULAR HEMOGLOBIN 26.9 pg (28-32); MEAN CORPUSCULAR HGB CONC 30.6 g/dL (31-35); MEAN CORPUSCULAR VOLUME 88.1 fL (81-99); MONOCYTES # (AUTO) 0.9 (0.2-0.8); MONOCYTES % 7.9 % (4.4-11.3); NEUTROPHILS # (AUTO) 7.9 (2.1-6.9); NEUTROPHILS % 67.6 % (38.7-80.0); PLATELET COUNT 167 x10e3/uL (140-360); RED BLOOD COUNT 4.38 x10e6/uL (4.3-5.7); RED CELL DISTRIBUTION WIDTH 14.2 % (11.7-14.4)
[2018-02-15 08:03] LABS: ANION GAP 12.2 mmol/L (8-16); BLOOD UREA NITROGEN 34 mg/dL (7-26); BUN/CREATININE RATIO 24 (6-25); CALCIUM 8.5 mg/dL (8.4-10.2); CARBON DIOXIDE 34 mmol/L (22-29); CHLORIDE 96 mmol/L (98-107); CREATININE, SERUM 1.44 mg/dL (0.72-1.25); EST GLOMERULAR FILTRATION RATE > 60 ML/MIN (60-); GLUCOSE 159 mg/dL (74-118); MAGNESIUM 2.1 MG/DL (1.3-2.1); POTASSIUM 4.2 mmol/L (3.5-5.1); SODIUM 138 mmol/L (136-145)
[2018-02-15] MEDS: INSULIN REGULAR, HUMAN 100 UNIT/1 ML 3ML VIAL SQ SCH ×3 (08:54→17:35)
[2018-02-15] MEDS: ASPIRIN 81 MG CHEW TAB PO SCH (08:58)
[2018-02-15] MEDS: LORATADINE/PSEUDOEPHEDRINE 24 HR SR TAB PO SCH (08:59)
[2018-02-15] MEDS: PANTOPRAZOLE SOD 40 MG TABEC PO SCH (09:24)
[2018-02-15] MEDS: PREDNISONE 20 MG TAB PO SCH (09:24)
[2018-02-15] MEDS: MAGNESIUM OXIDE 400 MG TAB PO SCH (09:24)
[2018-02-15] MEDS: FUROSEMIDE 40 MG TAB PO SCH ×2 (09:24→18:29)
[2018-02-15] MEDS: BISACODYL 5 MG TAB EC PO SCH (09:24)
[2018-02-15] MEDS: NYSTATIN/TRIAMCINOLONE 15 GM CR TOP SCH (09:25)
[2018-02-15] MEDS: APIXABAN 5 MG TABLET PO SCH ×2 (09:26→18:29)
[2018-02-15] MEDS: CEFTRIAXONE SOD 1 GM VIAL IV SCH ×2 (09:26→21:10)
[2018-02-15] MEDS: LISINOPRIL 10 MG TAB PO SCH ×2 (09:36→18:38)
[2018-02-15] MEDS: CARVEDILOL 12.5 MG TAB PO SCH ×2 (09:36→18:38)
[2018-02-15] MEDS ORDERED: Albuterol/Ipratropium Nebulize NEB (11:59)
[2018-02-15] MEDS ORDERED: MUCINEX DM ER1 EACH PO (11:59)
[2018-02-15] MEDS ORDERED: COREG12.5 MG PO (11:59)
[2018-02-15] MEDS ORDERED: PREDNISONE20 MG PO (11:59)
--- NOTE | 2018-02-15 14:49 | Progress Note ---
DATE: February 15, 2018 PULMONARY MEDICINE PROGRESS NOTE SUBJECTIVE: Mr. Tatum was seen and examined at bedside. He continues on supplemental oxygen at this time. No worsening of his respiratory distress. He is able to use BiPAP well during the night. The patient is eating better. REVIEW OF SYSTEMS: No headache. No double vision. OBJECTIVE VITALS SIGNS: Afebrile. Vital signs noted per electronic record. GENERAL: No acute distress, alert and calm. HEENT: Normocephalic, atraumatic. NECK: Supple. Throat midline. LUNGS: Bilateral air entry. A few rare rhonchi. CARDIOVASCULAR: S1, S2. No murmurs, rubs, or gallops. ABDOMEN: Soft, nontender. EXTREMITIES: No clubbing, no cyanosis. There is 1+ edema. INTEGUMENT: No rash. No purpura. LABS: BUN 34, 1.4 creatinine, 4.2 potassium, 12 white count, 167 platelets. IMPRESSION AND PLAN 1. Acute respiratory failure, status post BiPAP salvage. 2. Fluid overload. 3. Pneumonia. 4. Significant obesity. 5. Congestive heart failure. At this time, I wish to continue her current treatment at this time. The patient will need to remain on diuretics. Continue antibiotics. Patient will continue sleep equipment at night. We are investigating with DME whether we should be using different settings such as oxygen locomotive inspector during sleep with the sleep apnea equipment. We will follow closely. Job#: [id number]
[2018-02-15] MEDS: ATORVASTATIN 10 MG TAB PO SCH (21:10)
[2018-02-15] MEDS: SERTRALINE HCL 100 MG TAB PO SCH (21:10)
[2018-02-16 00:34] VITALS: BP 128/87
[2018-02-16] MEDS: GUAIFENESIN 600MG/DEXTROMETHORPHAN 30MG TABSR PO SCH ×3 (00:36→12:09)
[2018-02-16] MEDS: INSULIN REGULAR, HUMAN 100 UNIT/1 ML 3ML VIAL SQ SCH ×3 (00:36→11:56)
[2018-02-16] MEDS: ALBUTEROL/IPRATROPIUM 3 ML NEB NEB SCH ×3 (03:35→11:22)
[2018-02-16 05:38] VITALS: BP 123/94
[2018-02-16] MEDS: AZITHROMYCIN 500MG/NS 250 ML 250 ML IV SCH (05:58)
[2018-02-16 07:31] VITALS: BP 105/84
[2018-02-16 07:32] VITALS: BP 105/84
[2018-02-16] MEDS: CEFTRIAXONE SOD 1 GM VIAL IV SCH (08:11)
[2018-02-16] MEDS: ASPIRIN 81 MG CHEW TAB PO SCH (08:11)
[2018-02-16] MEDS: LORATADINE/PSEUDOEPHEDRINE 24 HR SR TAB PO SCH (08:11)
[2018-02-16] MEDS: FUROSEMIDE 40 MG TAB PO SCH (08:12)
[2018-02-16] MEDS: CARVEDILOL 12.5 MG TAB PO SCH (08:12)
[2018-02-16] MEDS: BISACODYL 5 MG TAB EC PO SCH (08:12)
[2018-02-16] MEDS: MAGNESIUM OXIDE 400 MG TAB PO SCH (08:12)
[2018-02-16] MEDS: APIXABAN 5 MG TABLET PO SCH (08:12)
[2018-02-16] MEDS: LISINOPRIL 10 MG TAB PO SCH (08:12)
[2018-02-16] MEDS: PANTOPRAZOLE SOD 40 MG TABEC PO SCH (08:12)
[2018-02-16] MEDS: NYSTATIN/TRIAMCINOLONE 15 GM CR TOP SCH (08:13)
[2018-02-16] MEDS ORDERED: PREDNISONE 20 MG TAB PO SCH (09:00)
[2018-02-16 10:51] LABS: BASOPHILS % 0.1 % (0.0-1.0); EOSINOPHILS # (AUTO) 0.1 (0.0-0.4); EOSINOPHILS % 0.4 % (0.0-6.0); HEMATOCRIT 39.6 % (38.2-49.6); LYMPHOCYTES # (AUTO) 3.6 (1.0-3.2); LYMPHOCYTES % 30.8 % (18.0-39.1); MEAN CORPUSCULAR HEMOGLOBIN 26.8 pg (28-32); MEAN CORPUSCULAR HGB CONC 30.3 g/dL (31-35); MEAN CORPUSCULAR VOLUME 88.4 fL (81-99); MONOCYTES # (AUTO) 0.9 (0.2-0.8); MONOCYTES % 7.3 % (4.4-11.3); NEUTROPHILS # (AUTO) 7.2 (2.1-6.9); NEUTROPHILS % 60.9 % (38.7-80.0); PLATELET COUNT 170 x10e3/uL (140-360); RED BLOOD COUNT 4.48 x10e6/uL (4.3-5.7); RED CELL DISTRIBUTION WIDTH 14.1 % (11.7-14.4)
[2018-02-16 11:30] VITALS: BP 101/76
--- NOTE | 2018-02-16 14:30 | Progress Note ---
DATE: February 16, 2018 PULMONARY MEDICINE PROGRESS NOTE SUBJECTIVE: Mr. Tatum was seen and examined at bedside. He continues to have steady progress. He is using his BiPAP machine very well. I was able to review the sleep study, and appears it was sent to a different physician. The primary doctor at that point did not get the oxygen logistics/shipper adaptor ordered. I have since gotten the logistics/shipper ordered, and will likely to be rectified during the work week. The patient with 1.5 L in and 1.7 L out. Bowel movement times 1. He continues with slight improvement in his breathing. REVIEW OF SYSTEMS: No diarrhea. No bleeding. OBJECTIVE VITALS: Afebrile. Vital signs noted per electronic record. GENERAL: In no acute distress. Alert and cooperative. HEENT: Normocephalic and atraumatic. NECK: Supple. Throat midline. LUNGS: Bilateral air entry. Limited. Rare rhonchi. CARDIOVASCULAR: S1 and S2. No murmurs, rubs or gallops. ABDOMEN: Soft and nontender. EXTREMITIES: No clubbing. No cyanosis. There is 1+ edema. INTEGUMENT: No rash. No purpura. IMPRESSION AND PLAN 1. Acute respiratory failure, resolving. 2. Chronic hypoxemic respiratory failure, on home oxygen. 3. Obstructive sleep apnea, recent diagnosis. 4. Congestive heart failure with exacerbation. 5. Possible pneumonia. Mr. Tatum will continue at this time with the intermittent BiPAP. I did rectify the home prescription as he was sent to an outside sleep lab on the other side of [place] out of preference. The results actually were done by different ordering physician. I will tell him to forward all sleep prescriptions to me in my office in the future. Continue antibiotics. Discharge planning is underway. Continue diuretics at this time. Will follow along closely. Job#: [id number] RI
[2018-02-16 14:41] LABS: ANION GAP 11.7 mmol/L (8-16); BLOOD UREA NITROGEN 33 mg/dL (7-26); BUN/CREATININE RATIO 24 (6-25); CALCIUM 8.8 mg/dL (8.4-10.2); CARBON DIOXIDE 37 mmol/L (22-29); CHLORIDE 93 mmol/L (98-107); CREATININE, SERUM 1.39 mg/dL (0.72-1.25); EST GLOMERULAR FILTRATION RATE > 60 ML/MIN (60-); GLUCOSE 175 mg/dL (74-118); MAGNESIUM 2.2 MG/DL (1.3-2.1); POTASSIUM 3.7 mmol/L (3.5-5.1); SODIUM 138 mmol/L (136-145)
[2018-02-16 14:46] VITALS: BP 115/73
--- NOTE | 2018-02-16 19:01 | Discharge Summary ---
ADMISSION DIAGNOSES 1. Acute hypercapnic respiratory failure. 2. Acute exacerbation of chronic obstructive pulmonary disease. 3. Hypertension. 4. Type 2 diabetes. 5. Recent deep venous thrombosis. DISCHARGE DIAGNOSES 1. Acute hypercapnic respiratory failure. 2. Acute exacerbation of chronic obstructive pulmonary disease. 3. Hypertension. 4. Type 2 diabetes. 5. Recent deep venous thrombosis. HISTORY: The patient has a history of hypertension, type 2 diabetes, chronic systolic heart failure, unknown EF, AICD placement, bilateral upper extremity DVTs in 2017, AICD defibrillator, cholecystectomy. HOSPITAL COURSE: A 57-year-old male presents with respiratory distress, shortness of breath, wheezing and cough. Upon admission, the patient had a chest x-ray which showed stable pulmonary edema, bibasilar atelectasis. CT of the brain showed no intracranial abnormalities. The patient had a fall and hit his head on the toilet. That is the reason for CT scan. Cardiology was consulted for chest pain and tachycardia. He apparently was recently discharged from [facility], so they knew of this man. His troponins were negative. EF was 25% to 30%. No additional cardiac workup was warranted. Pulmonology following from [place] was reconsulted at [facility]. He had to be on BiPAP for his elevated CO2. His O2 dropped off of BiPAP. He was slowly weaned off BiPAP down to his home dose of oxygen, which is 4 L nasal cannula. The patient was diuresed with Lasix and Diamox, and slowly improved over the next few days. Per patient and nursing, the patient has BiPAP at home, but it was missing a piece. He said that pulmonology needed to give them a script to get the piece. After speaking with pulmonology, they said that is not case. The BiPAP still works without that piece, but he did write an order for oxygen college associate during sleep. Again, he said it was safe to discharge the patient without it, and case management can set it up once he gets home on Sunday. Blood cultures were negative. Vital signs stable. The patient afebrile. He will follow up at home with his . Sunday he will get his oxygen college associate from the [employer]. He will follow up with primary care in 1-2 weeks, as well as cardiology and pulmonology as discussed. He is excited to go home and back on 4 L nasal cannula with no respiratory distress. DICTATED BY LEIDY BEDOLLA, TRUST MANAGER ASSISTANT GENARO AMADO MD Job#: [id number] RI
== END 2018-02-16 14:37 | disposition home or self-care (01) | DRG 189 ==
LOC: ER 04:27 → ERHOLD 06:45 → MED/SURG2 06:50 → IMCU 15:55
PROVIDERS: ADMIT Internal Medicine; ATTEND Internal Medicine
PROC: 3E0F7GC Introduction of Other Therapeutic Substance into Respiratory Tract, Via Natural or Artificial Opening (ICD-10-PCS; principal; 2018-02-11)
PROC: 5A09457 Assistance with Respiratory Ventilation, 24-96 Consecutive Hours, Continuous Positive Airway Pressure (ICD-10-PCS; 2018-02-11)
DX: J96.02 Acute respiratory failure with hypercapnia (principal); G93.40 Encephalopathy, unspecified; I50.23 Acute on chronic systolic (congestive) heart failure; J18.9 Pneumonia, unspecified organism; I11.0 Hypertensive heart disease with heart failure; R13.10 Dysphagia, unspecified; J44.0 Chronic obstructive pulmonary disease with (acute) lower respiratory infection; E66.2 Morbid (severe) obesity with alveolar hypoventilation; J44.1 Chronic obstructive pulmonary disease with (acute) exacerbation; Z68.41 Body mass index [BMI] 40.0-44.9, adult; E11.9 Type 2 diabetes mellitus without complications; D64.9 Anemia, unspecified; J20.9 Acute bronchitis, unspecified; Z86.718 Personal history of other venous thrombosis and embolism; Z95.810 Presence of automatic (implantable) cardiac defibrillator; Z79.01 Long term (current) use of anticoagulants; Z87.891 Personal history of nicotine dependence; R53.81 Other malaise; J96.11 Chronic respiratory failure with hypoxia; E83.42 Hypomagnesemia; W01.0XXA Fall on same level from slipping, tripping and stumbling without subsequent striking against object, initial encounter; Y93.89 Activity, other specified; Y92.231 Patient bathroom in hospital as the place of occurrence of the external cause
CPT/HCPCS: 36415; 36600; 70450; 71045; 80048; 80053; 80061; 82550; 82553; 82805; 82948; 83036; 83735; 83880; 84100; 84439; 84443; 84484; 85025; 85610; 85730; 87040; 93005; 94640; 94660; 96372; 99284; J0456; J0696; J2270; J2920

== ENCOUNTER 2018-03-16 12:54 | Emergency (ER) | payer OTHER ==
[~2018-03-16] VITALS: Ht 177.8 cm; Wt 130.2 kg
[~2018-03-16 12:54] MED LIST changes: +Albuterol/Ipratropium Nebulize NEB; +COREG12.5 MG PO; +GLIMEPIRIDE1 MG PO; +HYDRALAZINE HCL25 MG PO; +Insulin Detemir SQ; +LEVAQUIN500 MG PO; +MUCINEX DM ER1 EACH PO; +PREDNISONE20 MG PO; +QUETIAPINE FUM100 MG PO
--- OUTSIDE RECORDS SUMMARY | 2018-03-16 12:57 | XMS REPORT | Clinical Summary ---
Author Author [facility] Organization [facility] Address Unknown Phone Unavailable Care Team Providers Care Sanitation Laborer Name Role Phone Cristino Bryant DO PCP [...] (three) times a day. 17 ued tablet nitroglycerin (NITRODUR) Place 1 patch on the skin 04/15/20 Discontin 0.1 mg/hr daily. 17 ued clonIDINE (CATAPRES) 0.1 Take 0.1 mg by mouth as 04/15/20 Discontin MG tablet needed for high blood 17 ued pressure. carvedilol (COREG) 12.5 Take 12.5 mg by mouth 2 07/21/20 Discontin MG tablet (two) times a day with 17 ued meals. potassium chloride Take 10 mEq by mouth 07/31/20 Discontin (K-DUR,KLOR-CON) 10 MEQ daily. 17 ued CR tablet atorvastatin (LIPITOR) 10 Take 10 mg by mouth 07/31/20 Discontin MG tablet daily. 17 ued spironolactone Take 25 mg by [...] mg/hr total) on the skin daily 17 for 30 days. B complex-vitamin C-folic [...] 09/08/20 tablet total) by mouth daily 17 17 with breakfast for 30 days. hydrALAZINE (APRESOLINE) Take 1 tablet (25 mg 90 tablet 0 08/09/20 09/05/20 Discontin 25 MG tablet total) by mouth every 8 17 17 ued (eight) hours for 30 days. potassium chloride Take 2 capsules (20 mEq 120 capsule 0 08/09/20 Discontin (MICRO-K) 10 MEQ CR total) by mouth 2 (two) 17 17 ued capsule times a day for 30 days. pantoprazole (PROTONIX) Take 1 tablet (40 mg 30 tablet 0 08/09/20 40 MG EC tablet total) by mouth daily for 17 17 30 days. carvedilol (COREG) 12.5 Take [...] 17 ued (eight) hours for 30 days. furosemide (LASIX) 40 mg Take 1 tablet (40 mg 60 tablet 0 09/05/20 10/15/20 Discontin tablet total) by mouth 2 (two) 17 17 ued times a day for 30 days. potassium chloride Take 3 capsules (30 mEq 180 capsule 0 09/05/20 Discontin (MICRO-K) 10 MEQ CR total) by mouth 2 (two) 17 17 ued capsule times a day for 30 days. carvedilol (COREG) 6.25 Take 1 tablet (6.25 mg 60 tablet 3 10/15/20 11/14/19 MG tablet total) by mouth 2 (two) 17 18 times a day with meals for 30 days. traMADol (ULTRAM) 50 mg Take 1 tablet (50 mg 60 tablet 0 10/15/20 tablet total) by mouth every 6 (six) hours as needed for severe pain for up to 60 doses. sacubitril-valsartan Take 1 tablet by mouth 2 60 tablet 0 10/15/20 10/19/20 Discontin (ENTRESTO) 24-26 mg (two) times a day for 30 17 17 ued tablet per tablet days. hydrALAZINE (APRESOLINE) Take 3 tablets (75 mg 270 tablet 0 10/15/20 11/14/19 25 MG tablet total) by mouth every 8 18 (eight) hours for 30 days. insulin GLARGINE (LANTUS) Inject 14 Units under the 4.2 mL 0 10/16/20 11/15/19 100 unit/mL injection skin daily before 17 18 (vial) breakfast for 30 days. bisacodyl (DULCOLAX) [...] (Primary Dx) 10/03/2017 Anesthesia Procedural Cardiology Bia Arroyo, OPERATIONS SECTION MANAGER Event 10/03/2017 Procedure Pass Procedural Cardiology 10/03/2017 Surgery Procedural Cardiology Abraham Barreto Jr., MD Ep aicd implant single dual bi vent [51301 (CPT )] 10/03/2017 Procedure Pass Procedural Cardiology 10/03/2017 Procedure Pass Procedural Cardiology 09/30/2017 Orders Only Transplant Siddhartha Summers RN Chronic systolic heart failure (Primary Dx) 09/29/2017 Hospital Cardiology Jacek Fuentes, Acute on chronic combined - Encounter DO systolic and diastolic 10/15/2017 Gina Ness PA congestive heart failure, Marcos Pride MD NYHA class 4 (Primary Sudeep Maier O. Sr., Dx); Acute on chronic systolic congestive heart failure; SOB (shortness of breath); Other chest pain; Former smoker; Essential hypertension; Mixed hyperlipidemia; Undifferentiated schizophrenia; Coronary artery disease involving [place] coronary artery of [place] heart without angina pectoris 08/30/2017 Hospital Cardiology Wilber Quiñones MD Acute on chronic - Encounter Marcos Pride MD congestive heart failure, 09/05/2017 unspecified congestive heart failure type (Primary Dx) 07/31/2017 [facility] Neurology Neil Patel Hypertension, - Encounter MD [...] LAPAROSCOPIC 07/13/2017 Procedure Pass General Surgery 07/12/2017 [facility] General Surgery Cha Ibarra MD Acute cholecystitis [...] MD (Primary Dx) 05/07/2017 05/03/2017 Hospital Radiology Marcos Neumann Shortcezar of breath Encounter MD Antoni 05/03/2017 Transcribe Access Marcos Neumann Shortness of breath Orders MD Antoni (Primary Dx) 04/15/2017 Hospital Cardiology Emmanuel Neely DO Acute on chronic - Encounter Marcos Pride MD congestive heart failure, 04/17/2017 unspecified congestive heart failure type (Primary Dx); Chronic obstructive pulmonary disease, unspecified COPD type; Malignant hypertension; Hyperlipidemia, unspecified hyperlipidemia type after 03/15/2017 Immunizations Name Dates Previously Given Next Due [...] Taken Blood Pressure 156/93 10/19/2017 9:19 AM [facility] Pulse 85 10/19/2017 9:19 AM [facility] Temperature 35.8 C (96.4 F) 10/19/2017 9:19 AM [facility] Respiratory Rate 16 10/15/2017 3:44 PM [facility] Oxygen Saturation 93% 10/15/2017 3:44 PM [facility] Inhaled Oxygen - - Concentration Weight 136 kg (299 lb 12.8 oz) 10/19/2017 9:19 AM [facility] Height 177.8 cm (5' 10") 10/19/2017 9:19 AM [facility] Body Mass Index 43.02 10/19/2017 9:19 AM [facility] Plan of Treatment Health Maintenance Due Date Last Done Comments DIABETIC FOOT EXAM 1971 DIABETIC RETINAL EYE EXAM 1971 COLON CANCER SCREENING 2011 SHINGRIX VACCINE (#1) 2011 INFLUENZA VACCINE 05/29/2018 08/05/2017, 12/27/2016 Implants Implanted Type Area Fan Blade Truer Device Expiration Model / Identifier Date Serial / Lot [place] Df4 Tachy Lead - Cardiac N/A: N/A VANDERVOORT 11/29/2021 [id number] / [id number] Pacing SCIENTIFIC- CRM / Implanted: Qty: 1 on 10/03/2017 by Leads or [id number] Abraham Barreto Jr., MD Electrodes or Accessorie s [place] El Icd Df4 Vr Defibrilla BOSTON D150 / Implanted: Qty: 1 on 10/03/2017 by tor [employer]ENTIFIC [id number] / Abraham Barreto Jr., MD Devices [id number] [id number] In Lumbar L4-L5 Procedures Procedure Name Priority Date/Time Associated Diagnosis Comments ECHOCARDIOGRAM 2D LIMITED STAT 10/04/2017 Results for this 4:25 PM [facility] procedure are in the results section. EP AICD IMPLANT SINGLE Routine 10/03/2017 Results for this DUAL BI VENT 11:27 AM [facility] procedure are in the results section. ECHOCARDIOGRAM 2D Routine 10/02/2017 Results for this COMPLETE W MMODE SPECTRAL 4:21 PM [facility] procedure are in the COLOR DOPPLER (60816) results section. [place] [facility], E/M Routine 09/30/2017 Results for this 30-74 MINUTES 12:25 AM [facility] procedure are in the results section. [place] [facility], E/M Routine 08/31/2017 Results for this 30-74 MINUTES 10:46 AM CDT procedure are in the results section. CONSULT CARDIAC REHAB Routine 08/08/2017 PHASE 1 12:05 PM CDT [place] [facility], E/M Routine 08/01/2017 Results for this 30-74 MINUTES 8:54 AM CDT procedure are in the results section. [place] AN ELECTIVE Routine 07/17/2017 ENDOTRACHEAL AIRWAY 8:36 AM CDT Procedure Note - Lizzy Salazar, OPERATIONS SECTION MANAGER - 07/17/2017 8:14 AM CDT Airway [...] procedure are in the results section. after 03/15/2017 Results * Estimated GFR (10/19/2017 10:00 AM) Only the most recent of 56 results within the time period is included. [...] and Americans. Specimen Performing Laboratory Plasma specimen [facility] DEPARTMENT OF PATHOLOGY AND GENOMIC MEDICINE [address] [place] [address] * B natriuretic peptide (10/19/2017 10:00 AM) Only the most recent of 18 results within the time period is included. Component Value Ref Range BNP 1,574 (H) 0 - 100 pg/mL Specimen Performing Laboratory Blood [facility] DEPARTMENT OF PATHOLOGY AND [address] [address] * Magnesium level (10/19/2017 10:00 AM) Only the most recent of 25 results within the time period is included. Component Value Ref Range Magnesium 1.8 1.6 - 2.6 mg/dL Specimen Performing Laboratory Plasma specimen [facility] DEPARTMENT OF PATHOLOGY AND GENOMIC MEDICINE [address] [place] [address] * Basic metabolic panel (10/19/2017 10:00 AM) Only the most recent of 46 results within the time period is included. [...] 10.2 mg/dL Specimen Performing Laboratory Plasma specimen [facility] DEPARTMENT OF PATHOLOGY AND GENOMIC MEDICINE [address] [place] [address] * XR Chest 1 Vw Portable (10/15/2017 3:49 PM) Only the most recent of 12 results within the time period is included. Spec[facility] [address] [place] [address] Narrative Examination:XR CHEST 1 VW PORTABLE Clinical history:"Pleural Effusions" Comparison:10/04/2017 IMPRESSION: There are no new alveolar opacities within either lung.Bibasilar opacities consistent with atelectasis versus small infiltrates appear unchanged. No pneumothoraces are identified. The cardiomediastinal silhouette is unchanged. The bones of the chest are unchanged. Cardiac pacer is again seen. [facility]-[id number] Procedure Note [facility], Radiology Results Incoming - 10/15/2017 3:59 PM [facility] Examination: XR CHEST 1 VW PORTABLE Clinical history: "Pleural Effusions" Comparison: 10/04/2017 IMPRESSION: There are no new alveolar opacities within either lung. Bibasilar opacities consistent with atelectasis versus small infiltrates appear unchanged. No pneumothoraces are identified. The cardiomediastinal silhouette is unchanged. The bones of the chest are unchanged. Cardiac pacer is again seen. [facility]-[id number] * POC glucose (10/15/2017 11:38 AM) Only the most recent of 119 results within the time period is included. Component Value Ref Range POC glucose 248 (H) 65 - 99 mg/dL Comment: [facility] Notified RN Meter ID: [id number] Lining Setter: Gorge Hoffmann Specimen Performing Laboratory [facility] DEPARTMENT OF PATHOLOGY AND GENOMIC MEDICINE [address] [place] [address] * CBC with platelet and differential (10/14/2017 5:00 AM) Only the most recent of 41 results within the time period is included. [...] (promyelocytes, myelocytes, metamyelocytes) Specimen Performing Laboratory Blood [facility] DEPARTMENT OF PATHOLOGY AND GENOMIC MEDICINE [address] [place] [address] * CT Chest Wo Contrast (10/10/2017 10:22 PM) Specimen Performing [facility] [address] [place] [address] Narrative Examination:CT CHEST WO CONTRAST Clinical History: [...] the left lingular and bilateral lower lobes. [facility]-[id number] Procedure Note [facility], Radiology Results Incoming - 10/10/2017 10:53 PM [facility] Examination: CT CHEST WO CONTRAST Clinical History: [...] the left lingular and bilateral lower lobes. [facility]-[id number] * Potassium level (10/10/2017 2:15 PM) Only the most recent of 3 results within the time period is included. Component Value Ref Range Potassium 5.0 3.5 - 5.0 mEq/L Specimen Performing Laboratory Plasma specimen [facility] DEPARTMENT OF PATHOLOGY AND GENOMIC MEDICINE [address] [place] [address] * NM Lung Ventilation Perfusion (10/08/2017 9:48 AM) Specimen Performing Laboratory [facility] [address] [place] [address] Narrative PROCEDURE:[place] LUNG VENTILATION PERFUSION INDICATION:Evaluate for chronic PE. [...] be excluded based on this study, however. [facility]-[id number] Procedure Note Interface, Radiology Results Incoming - 10/08/2017 9:59 AM [facility] PROCEDURE: [place] LUNG VENTILATION PERFUSION INDICATION: Evaluate for chronic [...] excluded based on this study , however. [facility]-[id number] * Smear review (10/07/2017 4:15 AM) Only the most recent of 2 results within the time period is included. Component Value Ref Range Platelet slide review Isa slt decr Enlarged platelets Moderate (A) Specimen Performing Laboratory [facility] DEPARTMENT OF PATHOLOGY AND GENOMIC MEDICINE [address] [place] [address] * Urinalysis screen and microscopy, with reflex to culture (10/06/2017 5:40 PM) Only the most recent of 5 [...] UA 4 /LPF Specimen Performing Laboratory Urine [facility] DEPARTMENT OF PATHOLOGY AND GENOMIC MEDICINE [address] [place] [address] * Urine culture (10/06/2017 5:40 PM) Only the most recent of 5 results within the time period is included. Component Value Ref Range Urine culture SEE COMMENTComment: Bacteriuria screen negative. Specimen Performing Laboratory [facility] DEPARTMENT OF PATHOLOGY AND GENOMIC MEDICINE [address] [place] [address] * Blood culture, aerobic & anaerobic (10/06/2017 2:00 PM) Only the most recent of 2 results within the time period is included. Component Value Ref Range Blood culture isolate No growth after 5 days of incubation. Comment: Specimen Information Specimen Source: Blood Specimen Site: Forearm, left Specimen Performing Laboratory Blood - Forearm, left [facility] MEDICINE [address] [place] [address] * ECG 12 lead (10/06/2017 12:25 PM) Only the most recent of 10 results within the time period is included. Component Value Ref Range Ventricular rate 75 Atrial rate 75 [place] interval 140 QRSD interval 118 QT interval 404 QTC interval 451 P axis 1 48 QRS axis 1 106 T wave axis 117 EKG impression Normal sinus rhythm-Right atrial enlargement-Rightward axis-Nonspecific intraventricular conduction delay-Nonspecific T wave abnormality-Abnormal ECG-In automated comparison with ECG of 04-OCT-2017 14:08,-No significant change was found- Specimen Performing Laboratory [facility] MUSE [address] [place] [address] * Echocardiogram 2d limited (10/04/2017 4:25 PM) Specimen Performing Laboratory [facility] [address] [id number] Narrative Echocardiography Report [address] [place] [address] Pat.Name:Beatris ISAAC.ID:[id number] St.Date: 10/04/2017 Refer.MD:MARCOS PRIDE MD Exam Time: 4:59:00 PMStudy Type:Routine Echo Height:70inWeight:272lb BSA: 2.38 m2 DOBAge:1960 ,56Y Sex: MALEBP: 125/66 HR:77 bpmSonogrphr: Kaycee Ascencio RDCS Pat. Stat.:Inpatient Room:A9 Study Status:Final Echo Event ID:[id number] Order ID:[id number] Reason for Study:Myocardial Ischemia / Infarction - acute ches pain with suspected DC and nondiagnostic ECG with a resting ECHO [...] not well seen. MEASUREMENTS: 2D Parasternal Long [place] Ao An2.2 cmLVPWd 1.5 cm LVOT 2.4 cmLA Ds 3.9 cm LVIDd6 cmIndex 2.5 cm/m Ao Rtd 3.5 cm Index1.5 cm/m LVIDs4.7 cm LV Qrnb421.8 g(122-174) LV%fs 22 % LVM Index 197.8 g/m2 IVSd 1.6 cmRWT 0.5 Signed 10/04/2017 05:34 PM Shania Mustafa M.D. Procedure Note Interface, Radiology Results In - 10/04/2017 5:34 PM [facility] Echocardiography Report [address] [place] [address] Pat.Name: SAM ISAAC.ID: [id number] .Date: 10/04/2017 Refer.MD: MARCOS PRIDE MD Exam Time: 4:59:00 PM Study Type:Routine Echo Height: 70in Weight: 272lb BSA: 2.38 m2 Age: 2 1960,56Y Sex: MALE BP: 125/66 HR: 77 bpm Sonogrphr: Kaycee Ascencio RDCS Pat. Stat.:Inpatient Room: [facility] Study Status:Final Echo Event ID:[id number] Order ID: [id number] Reason for Study:Myocardial Ischemia / Infarction - acute ches pain with suspected DC and nondiagnostic ECG with a resting ECHO [...] not well seen. MEASUREMENTS: 2D Parasternal Long [place] Ao An 2.2 cm LVPWd 1.5 cm [...] myocardial injury. Specimen Performing Laboratory Plasma specimen [facility] DEPARTMENT OF PATHOLOGY AND [facility] MEDICINE [address] [place] [address] * Partial thromboplastin time, activated (10/04/2017 2:22 PM) Only the most recent of 6 results within the time period is included. Component Value Ref Range PTT 23.3 23.0 - 36.0 sec Comment: PTT therapeutic range for unfractionated heparin is 61.0-112.0 seconds which corresponds to Anti-Xa 0.3-0.7 U/ml. Specimen Performing Laboratory Blood [facility] DEPARTMENT OF PATHOLOGY AND [address] [address] * Prothrombin time with INR (10/04/2017 2:22 PM) Only the most recent of 11 results within the time period is included. Component Value Ref Range Prothrombin time 13.5 12.0 - 15.0 sec INR 1.0 Comment: The International Normalized Ratio (INR) is a therapeutic monitoring tool for patients who are stable on oral anticoagulant therapy. An INR of 2.0-3.0 is suggested for deep vein thrombosis/pulmonary embolism. Specimen Performing Laboratory Blood [facility] DEPARTMENT OF PATHOLOGY AND GENOMIC MEDICINE [address] [place] [address] * Phosphorus level (10/04/2017 2:22 PM) Only the most recent of 13 results within the time period is included. Component Value Ref Range Phosphorus 2.3 (L) 2.4 - 4.5 mg/dL Specimen Performing Laboratory Plasma specimen [facility] DEPARTMENT OF PATHOLOGY AND GENOMIC MEDICINE [address] [place] [address] * ECG Pre/Post Op-Tomorrow (10/04/2017 11:53 AM) Component Value Ref Range Ventricular rate 78 Atrial rate 78 [place] interval 144 QRSD interval 114 QT interval 400 QTC interval 456 P axis 1 44 QRS axis 1 143 T wave axis 110 EKG impression Normal sinus rhythm-Possible Left atrial enlargement-Right axis deviation-Abnormal ECG-In automated comparison with ECG of 29-SEP-2017 19:29,-QT has shortened- Specimen Performing Laboratory [facility] M[facility] [address] [place] [address] * Cv electrophysiology procedure (10/03/2017 11:27 AM) [facility]imen [facility] [address] [place] [address] Narrative TITLE OF PROCEDURE: Single chamber defibrillator [...] a scalpel, cautery, and blunt dissection.Using the bhkh-vfo-xihi technique and an introducer sheath, a defibrillation [...] right ventricular apical defibrillation lead is a [employer] Endotak Kingston-G, model 0296, serial #[id number].Measured R-wave 10.1 mV, pacing threshold 0.8 V, current 0.8 mA, impedance 982 ohms. 2.The defibrillator is a [employer] Dynagen EL ICD model D150, serial #[id number]. 3.Ventricular fibrillation was induced and the patient [...] time period is included. Specimen Performing Laboratory [facility] [address] [place] [address] Narrative Vascular Ultrasound Laboratory Lower Extremity Venous Report [address]Name:Beatris ISAAC.ID:[id number] St.Date: 10/02/2017 Refer.MD:MARCOS NEUMANN MD Exam Time: 5:20:00 PMStudy Type:LE Venous DOBAge:1960,56YSex: MALE Sonogrphr: [place], SAVANNA Pat. Stat.:Inpatient Room:A9 0938 A TapeVol: FORTUNATO CPT - 4: 92474 Echo Event ID:[id number] Order ID:[id number] Reason for Study:Evaluate for DVT. History of [...] Signed 10/02/2017 06:33 PM Chanell Fitzgerald MD, RPVI Procedure Note Interface, Radiology Results In - 10/02/2017 6:34 PM [facility] Vascular Ultrasound Laboratory Lower Extremity Venous Report [address] [place] [address] Pat.Name: SAM ISAAC.ID: [id number] .Date: 10/02/2017 Refer.MD: MARCOS NEUMANN MD Exam Time: 5:20:00 PM Study Type:LE Venous Age: 2 1960,56Y Sex: MALE Sonogrphr: [place], SAVANNA Pat. Stat.:Inpatient Room: A9 0938 A Tape Vol: FORTUNATO CPT - 4: 18827 Echo Event ID:[id number] Order ID: [id number] Reason for Study:Evaluate for DVT. History of [...] Signed 10/02/2017 06:33 PM Chanell Fitzgerald MD, RPVI * Echocardiogram complete w contrast and 3D if needed (10/02/2017 4:21 PM) Specimen Performing Laboratory [facility] [address] [place] [address] Narrative Echocardiography Report [address]Name:Beatris ISAAC.ID:[id number] .Date: 10/02/2017 Refer.MD:MARCOS NEUMANN MD Exam Time: 4:15:00 PMStudy Type:Routine Echo Height:70inWeight:280lb BSA: 2.41 m2 DOBAge:1960 ,56Y Sex: MALEBP: 137/72 HR:73 bpmSonogrphr: Kaycee Ascencio RDCS Pat. Stat.:Inpatient Room:[facility] Study Status:Final Echo Event ID:[id number] Order ID:[id number] Reason for Study:HF - Re-eval of known [...] RAPof 10 mmHg. MEASUREMENTS: 2D Parasternal Long [place] LVOT 2.2 cmLA Ds 4.4 cm LVIDd6.6 cmIndex 2.7 cm/m Ao An2.4 cm LVIDs5.8 cmAo Rtd 3 cm Index1.3 cm/m LV%fs 12.1 % LV Zugd646.4 g(122-174) IVSd 1.4 cmLVM Index 187.7 g/m2 [...] Radiology Results In - 10/02/2017 6:55 PM [facility] Echocardiography Report [address] [place] [address] Pat.Name: SAM ISAAC Sadaf.ID: [id number] .Date: 10/02/2017 Refer.MD: MARCOS NEUMANN MD Exam Time: 4:15:00 PM Study Type:Routine Echo Height: 70in Weight: 280lb BSA: 2.41 m2 Age: 2 1960,56Y Sex: MALE BP: 137/72 HR: 73 bpm Sonogrphr: Kaycee Ascencio RDCS Pat. Stat.:Inpatient Room: [facility] Study Status:Final Echo Event ID:[id number] Order ID: [id number] Reason for Study:HF - Re-eval of known [...] of 10 mmHg. MEASUREMENTS: 2D Parasternal Long [place] LVOT 2.2 cm LA Ds 4.4 cm [...] - 100 % Specimen Performing Laboratory Blood [facility] DEPARTMENT OF PATHOLOGY AND GENOMIC MEDICINE [address] [place] [address] * Urine drugs of abuse screen (09/30/2017 [...] medical purposes only. Specimen Performing Laboratory Urine [facility] DEPARTMENT OF PATHOLOGY AND GENOMIC MEDICINE [address] [place] [address] * Urinalysis, automated with microscopy (09/30/2017 4:00 [...] None seen UA Specimen Performing Laboratory Urine [facility] DEPARTMENT OF PATHOLOGY AND GENOMIC MEDICINE [address] [place] [address] * Respiratory pathogen panel (09/30/2017 3:22 PM) [...] Specimen Performing Laboratory Nares - Not specified [facility] DEPARTMENT OF PATHOLOGY AND GENOMIC MEDICINE [address] [place] [address] * Hemoglobin A1c (09/30/2017 1:17 PM) Only the most recent of 3 [...] type 1 diabetes. Specimen Performing Laboratory Blood [facility] DEPARTMENT OF PATHOLOGY AND GENOMIC MEDICINE [address] [place] [address] * CRITICAL CARE (09/30/2017 12:25 AM) Narrative Jacek Fuentes DO 09/30/2017 12:25 AM Critical Care Performed by: GINA NESS Authorized by: JACEK FUENTES Critical care provider statement: Critical care time (minutes):35 Critical care time was exclusive of:Teaching time and separately billable procedures and treating other patients (hypertensive emergency) Critical care was necessary to treat or prevent imminent or life-threatening deterioration of the following conditions:Cardiac failure, circulatory failure, SAFETY AND SKILL BASED PAY MANAGER failure or compromise, dehydration, hepatic failure, metabolic [...] 9:56 PM) Only the most recent of 3 results within the time period is included. Component Value Ref Range Creatine kinase 313 (H) 39 - 308 U/L Specimen Performing Laboratory Plasma specimen [facility] DEPARTMENT OF PATHOLOGY AND GENOMIC MEDICINE [address] [place] [address] * Comprehensive metabolic panel (09/29/2017 9:56 PM) Only the most recent of 10 results within the time period is included. [...] Protein 7.5 6.3 - 8.3 g/dL Comment: 4.6-7.0 g/dL [...] 1.2 mg/dL Specimen Performing Laboratory Plasma specimen [facility] DEPARTMENT OF PATHOLOGY AND GENOMIC MEDICINE [address] [place] [address] * CRITICAL CARE (08/31/2017 10:46 AM) Gabriel Quiñones MD 08/31/2017 10:46 AM Critical Care [...] 7.0 mg/dL Specimen Performing Laboratory Plasma specimen [facility] DEPARTMENT OF PATHOLOGY AND GENOMIC MEDICINE [address] [place] [address] * Urine eosinophils (08/08/2017 12:24 PM) Only the most recent of 2 results within the time period is included. Component Value Ref Range Eosinophils, urine NONE Specimen Performing Laboratory Urine [facility] DEPARTMENT OF PATHOLOGY AND GENOMIC MEDICINE [address] [place] [address] * Renin activity (08/08/2017 12:24 PM) Component Value Ref Range Renin activity 31.4 Comment: Specimen diluted and results confirmed. INTERPRETIVE INFORMATION: Renin Activity Adult, Normal sodium diet: Supine ................. 0.2-1.6 ng/mL/hr Upright ................ 0.5-4.0 ng/mL/hr Children, Normal sodium diet, Supine: [place] (1-7 days) ..... 2.0-35.0 ng/mL/hr Cord blood [...] angiotensinogen is decreased. See Compliance Statement D: [email or web address] Performed by [facility], [address] [place] [id number] [email or web address], Abhijit Howell MD - Lab. Director Specimen Performing Laboratory Blood [facility] [address] [place] [address] * Aldosterone, serum (08/08/2017 12:24 PM) Component [...] reference intervals for this test in the [facility] Laboratory Test Directory ([email or web address]). Performed by [facility], [address] [place] [address] [email or web address], Abhijit Howell MD - Lab. Director Specimen Performing Laboratory Serum [facility] [address] [place] [address] * Sodium level, urine, random (08/08/2017 12:24 PM) Only the most recent of 2 results within the time period is included. Component Value Ref Range Sodium, urine, random 110 mEq/L Specimen Performing Laboratory Urine [facility] DEPARTMENT OF PATHOLOGY AND GENOMIC MEDICINE [address] [place] [address] * Protein, urine, random (08/08/2017 12:24 PM) Only the most recent of 2 results within the time period is included. Component Value Ref Range Protein, urine random <4 mg/dL Specimen Performing Laboratory Urine [facility] DEPARTMENT OF PATHOLOGY AND GENOMIC MEDICINE [address] [place] [address] * Potassium, urine, random (08/08/2017 12:24 PM) Only the most recent of 2 results within the time period is included. Component Value Ref Range Potassium, urine, random 26.0 mEq/L Specimen Performing Laboratory Urine [facility] DEPARTMENT OF PATHOLOGY AND GENOMIC MEDICINE [address] [place] [address] * Osmolality, urine (08/08/2017 12:24 PM) Only the most recent of 2 results within the time period is included. Component Value Ref Range Osmolality, urine 350 50 - 1,400 mOsm/kg Specimen Performing Laboratory Urine [facility] DEPARTMENT OF PATHOLOGY AND GENOMIC MEDICINE [address] [place] [address] * Creatinine level, urine, random (08/08/2017 12:24 PM) Only the most recent of 2 results within the time period is included. Component Value Ref Range Creatinine, urine, random 37 mg/dL Specimen Performing Laboratory Urine [facility] PATHOLOGY [facility] [address] [place] [address] * Chloride level, urine, random (08/08/2017 12:24 PM) Only the most recent of 2 results within the time period is included. Component Value Ref Range Chloride, urine, random 105 mEq/L Specimen Performing Laboratory Urine [facility] DEPARTMENT PATHOLOGY AND GENOMIC MEDICINE [address] [place] [address] * Thyroid stimulating hormone (08/08/2017 12:24 PM) Component Value Ref Range TSH 5.53 (H) 0.27 - 4.20 uIU/mL Specimen Performing Laboratory Plasma specimen [facility] DEPARTMENT OF PATHOLOGY AND [address] [address] * Parathyroid hormone (08/08/2017 12:24 PM) Component Value Ref Range PTH 84 (H) 15 - 65 pg/mL Specimen Performing Laboratory Blood [facility] PATHOLOGY AND [address] [address] * Osmolality, serum (08/08/2017 12:24 PM) Component Value Ref Range Osmolality 301 (H) 275 - 295 mOsm/kg Specimen Performing Laboratory Blood [facility]Y [address] [address] * CBC hemogram (08/08/2017 4:15 AM) Only [...] 0.00 /100 WBC Specimen Performing Laboratory Blood [facility] PATHOLOGY AND [address] [address] * CT Abdomen Pelvis Wo Contrast (08/03/2017 8:26 PM) Only the most recent of 2 results within the time period is included. Specimen Performing [facility] [address] [place], [place] [id number] Narrative EXAMINATION:CT ABDOMEN PELVIS WO CONTRAST CLINICAL [...] 4.There is hardware in the lumbar spine. [facility]-[id number] Procedure Note [facility], Radiology Results Incoming - 08/03/2017 8:58 PM [...] There is hardware in the lumbar spine. [facility]-[id number] * CRITICAL CARE (08/01/2017 8:54 AM) Narrative [...] Chest (07/31/2017 6:34 PM) Specimen Performing Laboratory [facility] [address] [place] [address] Narrative EXAMINATION:XR ABDOMEN ACUTE INC CHEST CLINICAL HISTORY: Bowel ileus COMPARISON:None. FINDINGS: Heart size is enlarged. There is vascular congestion with basal volume loss and fluid on each side. There are postoperative changes in the lower lumbar spine. There are also surgical clips in the right upper quadrant. Bowel gas pattern is nonspecific. IMPRESSION: As above [facility]-[id number] Procedure Note Interface, Radiology Results Incoming - [...] gas pattern is nonspecific. IMPRESSION: As above [id number] * Ionized calcium (07/19/2017 1:20 AM) Only the most recent of 4 results within the time period is included. Component Value Ref Range pH 7.60 Ionized calcium 1.07 (L) 1.11 - 1.32 mmol/L Specimen Performing Laboratory Plasma specimen [facility] DEPARTMENT OF PATHOLOGY AND GENOMIC MEDICINE [address] [place] [address] * Hepatic function panel (07/19/2017 1:20 AM) [...] 50 U/L Specimen Performing Laboratory Plasma specimen [facility] DEPARTMENT OF PATHOLOGY AND GENOMIC MEDICINE [address] [place] [address] * XR Abdomen 1 Vw Portable (07/17/2017 3:06 PM) Specimen Performing Laboratory [facility] [address] [place] [address] Narrative EXAMINATION:XR ABDOMEN 1 VW PORTABLE CLINICAL HISTORY:Check feeding tube placement COMPARISON:None. IMPRESSION: There is a nonspecific bowel gas pattern. No free air is identified. Nasogastric tube terminates in the body the stomach Postoperative changes of lumbar spine The gallbladder has been removed [facility]-[id number] Procedure Note Interface, Radiology Results Incoming - 07/17/2017 4:02 PM CDT EXAMINATION: XR ABDOMEN 1 VW PORTABLE CLINICAL HISTORY: Check feeding tube placement COMPARISON: None. IMPRESSION: There is a nonspecific bowel gas pattern. No free air is identified. Nasogastric tube terminates in the body the stomach Postoperative changes of lumbar spine The gallbladder has been removed [facility]-[id number] * Surgical pathology request (07/17/2017 12:10 PM) Component Value Ref Range Surgical pathology report See link below for PDF Lab Report Specimen Performing Laboratory [facility] DEPARTMENT OF PATHOLOGY AND GENOMIC MEDICINE [address] [place] [address] * Ionized calcium, arterial (07/17/2017 10:10 AM) Component Value Ref Range Ionized calcium, arterial 0.88 (L)Comment: Specimen is slightly hemolyzed. 1.11 - 1.32 mmol/L Interpret results accordingly. Specimen Performing Laboratory Blood [facility] DEPARTMENT OF PATHOLOGY AND GENOMIC MEDICINE [address] [place] [address] * Lactic acid level (07/17/2017 10:10 AM) Component Value Ref Range Lactic acid 1.8 0.5 - 2.2 mmol/L Specimen Performing Laboratory Plasma specimen [facility] DEPARTMENT OF PATHOLOGY AND GENOMIC MEDICINE [address] [place], [place] [address] * Type and screen (07/17/2017 4:30 AM) Component Value Ref Range ABO grouping O Rh type POS Antibody screen (gel) NEG Specimen Performing Laboratory Blood [facility] DEPARTMENT OF PATHOLOGY AND [facility] MEDICINE [address] [place] [address] * HCV qualitative by PCR (07/14/2017 4:00 AM) Component Value Ref Range HCV PCR result Detected (A) Not-Detected HCV RNA qualitative See link below for PDF Lab ReportComment: Specimen Performing Laboratory [facility] DEPARTMENT OF PATHOLOGY AND [address] [address] * Hepatitis C antibody (07/14/2017 4:00 AM) Component Value Ref Range Hepatitis C Ab Reactive (A) Non-reactive Comment: HCV antibody testing initially Reactive. Confirmation by HCV RNA PCR will be performed and reported separately when completed. Repeat HCV RNA PCR will not be performed if done within 30 days. Specimen Performing Laboratory Blood [facility] DEPARTMENT OF PATHOLOGY AND GENOMIC MEDICINE [address] [place] [address] * Hepatitis C virus quantitative by PCR (07/14/2017 4:00 AM) Component Value Ref Range Hepatitis C quantitative, 13,900,000 (A) Not-Detected IU/mL PCR Hepatitis C quantitative, See link below for PDF Lab ReportComment: Case PCR Number: [id number] Specimen Performing Laboratory [facility] DEPARTMENT [place] [address] * MRI CHOLANGIOGRAM W WO CONTRAST (07/13/2017 10:04 PM) Specimen Performing Laboratory [facility] [address] [place] [address] Narrative EXAMINATION:MRI CHOLANGIOGRAM W WO CONTRAST CLINICAL [...] No evidence of biliary dilatation or choledocholithiasis. [facility]-[id number] Procedure Note [facility], Radiology Results Incoming - 07/13/2017 10:56 [...] No evidence of biliary dilatation or choledocholithiasis. [facility]-[id number] * [place] Hepatobiliary (HIDA Scan) (07/13/2017 3:07 PM) Specimen Performing Laboratory [address] [address] Narrative PROCEDURE:[place] HEPATOBILIARY (HIDA SCAN) INDICATION:Abdominal pain. TECHNIQUE: The [...] obstruction. 2.The common bile duct is patent. [facility]-[id number] Procedure Note Interface, Radiology Results [facility] - 07/13/2017 3:23 PM CDT PROCEDURE: NM [...] 2. The common bile duct is patent. [id number] * Lipase level (07/13/2017 4:00 AM) Component Value Ref Range Lipase 18 13 - 60 U/L Specimen Performing Laboratory Plasma specimen [facility] DEPARTMENT OF PATHOLOGY AND GENOMIC MEDICINE [address] [place] [address] * Amylase level (07/13/2017 4:00 AM) Component Value Ref Range Amylase 22 13 - 53 U/L Specimen Performing Laboratory Plasma specimen [facility] DEPARTMENT OF PATHOLOGY AND [facility] MEDICINE [address] [place] [address] * Lipid panel (07/13/2017 4:00 AM) Only [...] (>=200 mg/dL) Specimen Performing Laboratory Plasma specimen [facility] DEPARTMENT OF PATHOLOGY AND GENOMIC MEDICINE [address] [place] [address] * [place] Gallbladder (07/13/2017 12:54 AM) Specimen Performing Laboratory [address] [address] Narrative EXAMINATION:US GALLBLADDER CLINICAL HISTORY:Cholecystitis COMPARISON:None. FINDINGS: [...] Common bile duct sonographically within normal limits. [facility]-[id number] Procedure Note [facility], Radiology Results Incoming - 07/13/2017 1:02 AM [...] Common bile duct sonographically within normal limits. 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 Previous ECG: Previous ECG:Compared to current [...] of this Stress ECG report.-Electronically Signed By Mecca BECKFORD, Carlton ([id number]), editorial project manager aMry Gross ([id number]) on 05/06/2017 6:03:03 AM Specimen Performing Laboratory [facility] [address] [place] [address] * Nm myocardial perfusion (05/05/2017 8:17 AM) Specimen Performing Laboratory [facility] [address] [place] [address] Narrative Nuclear Cardiology and Cardiac CT [address] [address] Myocardial Perfusion Imaging Report Stress ECG tracings are available in MUSE, EPIC and [employer] Web All ECG interpretations are included in this report Pat.Name:Beatris ISAAC.ID:[id number] St.Date: 05/05/2017Refer.MD:MARCOS PRIDE MD Exam Time: 8:17:00 AM Study Type:Myocardial Perfusion Imaging Height:70inWeight:285lb BSA: 2.43 m2 DOBAge:1960 ,56Y Sex: MALEBP: 142/86 HR:73 bpmNuclear Tech:MONAE Rebolledo Pat. Stat.:Inpatient Room:[facility] Nuclear Event ID:[id number] Order ID:[id number] Reason for Study:Chest pain, unspecified* History / Clinical:Congestive heart failure, Coronary artery disease, Hyperlipidemia, Hypertension, Obesity Procedures:Two Day Stress / Rest Race:-[place] Risk Factors:Known Coronary Atherosclerosis, Hyperlipidemia, Hypertension, Obesity Clinical Symptoms:Regadenoson Physical Exam:S1, S2, clear lungs Surgery: Serum K+ Date,3.5/05/05/17, Troponin I Date,1)neg x -05/05/17 2)/ 3)/, BUN/Creatinine Date,07/29.005/05/17 Medications:Clonidine, Coreg, [...] AM CDT Nuclear Cardiology and Cardiac CT [address] [place] [address] Myocardial Perfusion Imaging Report Stress ECG tracings are available in MUSE, [employer] and CV Web All ECG interpretations are included in this report Pat.Name: SAM ISAAC Pat.ID: [id number] St.Date: 05/05/2017 Refer.MD: MARCOS PRIDE MD Exam Time: 8:17:00 AM Study Type:Myocardial Perfusion Imaging Height: 70in Weight: 285lb BSA: 2.43 m2 Age: 2 1960,56Y Sex: MALE BP: 142/86 HR: 73 bpm Nuclear Tech:MONAE Rebolledo Pat. Stat.:Inpatient Room: [facility] Nuclear Event ID:[id number] Order ID: [id number] Reason for Study:Chest pain, unspecified* History / Clinical:Congestive heart failure, Coronary artery disease, Hyperlipidemia, Hypertension, Obesity Procedures:Two Day Stress / Rest Race: -[place] Risk Factors:Known Coronary Atherosclerosis, Hyperlipidemia, Hypertension, Obesity Clinical Symptoms:Regadenoson Physical Exam:S1, S2, clear lungs Surgery: Serum K+ Date, 3.5/05/05/17, Troponin I Date, 1)neg x 2 -05/05/17 2)/ 3)/, BUN/Creatinine Date, 07/29.0/05/05/17 Medications:Clonidine, Coreg, Lipitor, Lisinopril, Hydralazine, Imdur SUMMARY: [...] XR Chest 2 Vw (05/03/2017 4:57 PM) Specimen Performing Laboratory [facility] [address] [place] [address] Narrative Examination:XR CHEST 2 VW Clinical history:"R06.02 Shortness of breath, r06.02" Comparison:04/15/2017 IMPRESSION: There is improved aeration of both lung bases.Faint left anterior, basilar pleural thickening versus a small loculated left pleural effusion cannot be excluded.Otherwise, there are no apparent infiltrates or pneumothoraces.The borderline prominent cardiomediastinal silhouette and the imaged bones are stable in appearance. [id number] Procedure Note Hm Interface, Radiology Results Incoming [...] the imaged bones are stable in appearance. [id number] * CT Angiogram Pe Chest (04/15/2017 5:32 AM) Specimen Performing Laboratory [facility] [address] [place] [address] Narrative EXAMINATION:CT ANGIOGRAM PE CHEST CLINICAL HISTORY: [...] AM and acknowledged understanding of the findings. [facility]-[id number] Procedure Note [facility], Radiology Results Incoming - 04/15/2017 6:05 AM [...] AM and acknowledged understanding of the findings. [facility]-[id number] after 03/15/2017 Insurance Payer Benefit Subscriber ID Type Phone Address Plan / Group [employer] MED[employer] xxxxxxxxx O COMM STAR+ ALEJANDRA Home: [address] [place], [place] [phone] [id number]
--- OUTSIDE RECORDS SUMMARY | 2018-03-16 12:58 | XMS REPORT | Continuity of Care Document ---
Author Author [facility] Organization [facility] Address [address] [address] Phone Unavailable Care Team Providers Care Roller Embosser Name Role Phone JUAN BENÍTEZ DO PCP Insurance Providers Guarantor Jeancarlos Isaac Address [address] [place] [address] Email NONE Payer [facility] Policy Number [id number] Subscriber's Name Jeancarlos Isaac Relationship 18 Self / Same As Patient Effective Date 17 Advance Directives Directive Response Recorded Date/Time Does the patient have an advance directive? No 03/03/18 9:40am If yes, is advance directive on file with [facility]? No 11/04/17 12:26am If not on file with [facility] will patient provide a copy? No 02/11/18 4:27am Do you have a Directive to Physician? No 03/03/18 4:24am Do you have a Medical Power of Wastewater Manager? No 03/03/18 4:24am Do you have an out of hospital Do Not Resuscitate Order? No 03/03/18 4:24am Do you have any special needs we should be aware of? No 03/03/18 4:24am Do you have a support person here with you today? Yes 03/03/18 4:24am Did patient receive Notice of Privacy Practices? Yes 03/03/18 4:24am Did patient receive patient rights and responsibilities? Yes 03/03/18 4:24am Problems Medical Problem Onset Date Status Bronchitis Unknown COPD exacerbation Unknown Chest pain Unknown Fever Unknown Medications Current Home Medications Medication Dose Units Route Directions Days Qty Instructions Start Date Aspirin (Aspir 81) 81 Mg Tablet. Atorvastatin Calcium 10 Mg Tablet 10 Mg Oral Today At 9:00PM 30 Tab Bisacodyl 5 Mg Tablet. 10 Mg Oral Daily as needed for Constipation Carvedilol (Coreg) 12.5 Mg Tab 25 Mg Oral Twice A Day 30 Days 02/15 Clonidine Hcl 0.1 Mg Tablet 1 Tab Oral Daily as needed for High Blood Pressure 60 Tab FOR SYSTOLIC >160 Clonidine Hcl 0.1 Mg Tablet 1 Tab Oral Bedtime 60 Tab Entresto 24-26 Mg Oral Twice A Day Furosemide 40 Mg Tablet 40 Mg Oral Daily 30 Tab Glimepiride 1 Mg Tablet 1 Mg Oral Daily Guaifenesin/Dextromethorphan (Mucinex Dm Er 600-30 Mg Tablet) 1 Each Tab.er.12h 1 Each Oral Every 6 Hours 7 Days 03/07/18 Hydralazine Hcl 25 Mg Tab 25 Mg Oral Three Times A Day Insulin Detemir 100 Unit/Ml Pen 20 Unit Sub-Q Every 12 Hours 08/15 Levofloxacin (Levaquin) 500 Mg Tablet 500 Mg Oral Daily 7 Days 06/15 Magnesium Oxide 400 Mg Tablet 400 Mg Oral Daily Pantoprazole Sodium (Protonix) 40 Mg Tablet.dr 40 Mg Oral Daily 30 Days 30 Tab 03/05/18 Prednisone 20 Mg Tab 10 Mg Oral Daily 16 Days TAKE 30MG PO DAILY X4 DAYS THEN TAKE 20MG PO DAILY X4 DAYS THEN TAKE 10MG PO DAILY X4 DAYS THEN TAKE 5MG PO DAILY X4 DAYS 03/05/18 Quetiapine Fumarate 100 Mg Tablet 100 Mg Oral Bedtime 30 Tab Past Home Medications Medication Directions Ordered Status Albuterol/Ipratropium Nebulize 3 Ml Inha, 3 Ml Nebullizer Rt Q4h 02/15/18 Discontinued Carvedilol 3.125 Mg Tablet, 6.125 Mg Oral Twice A Day Discontinued Eliquis , 5 Mg Oral Twice A Day Discontinued Guaifenesin/Dextromethorphan (Mucinex Dm Er 600-30 Mg Tablet) 1 Each Tab.er.12h , 1 Each Oral Every 6 Hours as needed for Congestion 02/15/18 Discontinued Lisinopril 10 Mg Tablet, 10 Mg Oral Twice A Day Discontinued Nitroglycerin (Nitro-Bid) 1 Gm Oint...g., 1 G Transderm Every 6 Hours Discontinued Pantoprazole Sodium (Protonix) 40 Mg Tablet.dr, 40 Mg Oral Daily Discontinued Prednisone 20 Mg Tab, 10 Mg Oral Daily 02/15/18 Discontinued Sennosides (Senna Lax) 8.6 Mg Tablet, 8.6 Mg Oral Daily Discontinued Sertraline Hcl 100 Mg Tablet, 100 Mg Oral Bedtime Discontinued Tramadol Hcl (Ultram 50MG*) 50 Mg Tab, 50 Mg Oral Every 6 Hours as needed for Pain Discontinued Varenicline Tartrate (Chantix) 0.5 Mg Tablet, 0.5 Mg Oral As Needed Discontinued Social History Social History Problem Response Recorded Date/Time Onset Date Status Hx Psychiatric Problems Y - DEPRESSION, SCHIZOPRENIA 03/03/2018 9:40am Not Applicable Not Applicable Hx Eating Disorder No 03/03/2018 9:40am Not Applicable Not Applicable Hx Substance Use Disorder No 03/03/2018 9:40am Not Applicable Not Applicable Hx Depression Yes 03/03/2018 9:40am Not Applicable Not Applicable Hx Alcohol Use No 03/03/2018 9:40am Not Applicable Not Applicable Hx Substance Use Treatment No 03/03/2018 9:40am Not Applicable Not Applicable Hx Physical Abuse No 03/03/2018 9:40am Not Applicable Not Applicable Smoking Status Start Date Stop Date Former smoker Hospital Discharge Instructions No hospital discharge instruction information available. Plan of Care Discharge Date 03/07/18 6:37pm Disposition HOME, SELF-CARE Instructions/Education Provided Bronchitis (Acute) - Adult Prescriptions See Medication Section Additional Instructions/Education f/u with PCP in 1-2 weeks Functional Status Query Response Date Recorded FUNCTIONAL STATUS . March 04, 2018 11:38am Assistive Devices None March 03, 2018 9:49am Ambulation Ability Independent March 03, 2018 9:49am Toileting Ability Independent March 07, 2018 6:28pm Allergies, Adverse Reactions, Alerts No known allergies. Immunizations No immunization information available. Vital Signs Acute Vital Signs Vital Response Date/Time Temperature (Fahrenheit) 97.3 degrees F (97.6 - 99.5) 03/07/2018 4:37pm Pulse Pulse Rate (adult) 76 bpm (60 - 90) 03/07/2018 6:10pm Respiratory Rate 20 bpm (12 - 24) 03/07/2018 4:57pm Blood Pressure 143/82 mm Hg 03/07/2018 6:10pm Height 5 ft 10 in 03/03/2018 1:13am Weight 289 lb 03/03/2018 1:13am Body Mass Index 41.5 kg/m^2 03/03/2018 9:40am Results Laboratory Results Test Name Result Units Flags Reference Collection Date/Time Result Date/ Time Comments D-Dimer Quantitative (PE/DVT) 1.05 ug/mLFEU H 0.00-0.45 11/04/2017 8: 00am 11/04/2017 11:26am Hemoglobin A1c Percent 7.7 % H 4.0-7.0 02/12/2018 5:55am 02/12/2018 7: 08am Phosphorus Level 2.9 MG/DL 2.3-4.7 02/13/2018 5:55am 02/13/2018 7:09am Triglycerides Level 70 MG/DL 0-149 02/12/2018 5:55am 02/12/2018 7:38am Cholesterol Level 137 MD/DL 0-199 02/12/2018 5:55am 02/12/2018 7:38am Less than 200 mg/dL Low Risk 201 - 239 mg/dL Borderline Risk 240 mg/dl and greater High Risk LDL Cholesterol 71 MG/DL 60-130 02/12/2018 5:55am 02/12/2018 7:38am HDL Cholesterol 52 MG/DL 40-60 02/12/2018 5:55am 02/12/2018 7:38am Cholesterol/HDL Ratio 2.6 L 3.9-4.7 02/12/2018 5:55am 02/12/2018 7: 38am Free Thyroxine 1.11 ng/dL 0.9-1.8 02/12/2018 5:55am 02/12/2018 7:52am Arterial Blood pH 7.24 L 7.31-7.41 02/11/2018 9:45am 02/11/2018 10: 12am Arterial Blood Partial Pressure CO2 94 mmHg *H 41-51 02/11/2018 9:45am 10:12am Results called/hand delivered to RAMA BEDOLLA at 1000 on 02/11/18 by Sangeeta Caputo. RB OK. Arterial Blood Partial Pressure O2 82 mmHg 80-105 02/11/2018 9:45am 10:12am Arterial Blood HCO3 40 mmol/L H 23-28 02/11/2018 9:45am 02/11/2018 10: 12am Arterial Blood Base Excess 13.0 mmol/L H -2 - 3 02/11/2018 9:45am 2017 10:12am Arterial Blood Oxygen Saturation 93.0 % L 95-98 02/11/2018 9:45am 2017 10:12am FiO2 28 % 02/11/2018 9:45am 02/11/2018 10:12am White Blood Count 12.35 x10e3/uL H 4.8-10.8 03/07/2018 5:58am 2017 6:34am Red Blood Count 4.54 x10e6/uL 4.3-5.7 03/07/2018 5:58am 03/07/2018 6: 34am Hemoglobin 12.0 g/dL L 14.0-18.0 03/07/2018 5:58am 03/07/2018 6:34am Hematocrit 38.1 % L 38.2-49.6 03/07/2018 5:58am 03/07/2018 6:34am Mean Corpuscular Volume 83.9 fL 81-99 03/07/2018 5:58am 03/07/2018 6: 34am Mean Corpuscular Hemoglobin 26.4 pg L 28-32 03/07/2018 5:58am 2017 6:34am Mean Corpuscular Hemoglobin Concent 31.5 g/dL 31-35 03/07/2018 5:58am 03/07/2018 6:34am Red Cell Distribution Width 13.3 % 11.7-14.4 03/07/2018 5:58am 2017 6:34am Platelet Count 142 x10e3/uL 140-360 03/07/2018 5:5803/07/2018 6: 34am Neutrophils (%) (Auto) 86.0 % H 38.7-80.0 03/07/2018 5:5803/07/2018 6 :34am Lymphocytes (%) (Auto) 10.1 % L 18.0-39.1 03/07/2018 5:5803/07/2018 6 :34am Monocytes (%) (Auto) 3.0 % L 4.4-11.3 03/07/2018 5:03/07/2018 6: 34am Eosinophils (%) (Auto) 0.0 % 0.0-6.0 03/07/2018 5:03/07/2018 6: 34am Basophils (%) (Auto) 0.1 % 0.0-1.0 03/07/2018 5:03/07/2018 6:34am IM GRANULOCYTES % 0.8 % 0.0-1.0 03/07/2018 5:03/07/2018 6:34am Neutrophils # (Auto) 10.6 H 2.1-6.9 03/07/2018 5:03/07/2018 6: 34am Lymphocytes # (Auto) 1.3 1.0-3.2 03/07/2018 5:03/07/2018 6:34am Monocytes # (Auto) 0.4 0.2-0.8 03/07/2018 5:03/07/2018 6:34am Eosinophils # (Auto) 0.0 0.0-0.4 03/07/2018 5:03/07/2018 6:34am Basophils # (Auto) 0.0 0.0-0.1 03/07/2018 5:03/07/2018 6:34am Absolute Immature Granulocyte (auto 0.10 x10e3/uL 0-0.1 03/07/2018 5: 03/07/2018 6:34am Prothrombin Time 12.6 seconds 11.9-14.5 03/03/2018 1:03/03/2018 2: 05am Prothromb Time International Ratio 1.02 03/03/2018 1:2017 2:05am Oral Anticoagulant Therapy INR Values: 1. Low Intensity Therapy 1.5 - 2.0 2. Moderate Intensity Therapy 2.0 - 3.0 3. High Intensity Therapy(1) 2.5 - 3.5 4. High Intensity Therapy(2) 3.0 - 4.0 5. Panic Value INR > 5.0 Activated Partial Thromboplast Time 27.9 seconds 23.8-35.5 03/03/2018 1: 03/03/2018 1:42am Urine Color YELLOW YELLOW 03/03/2018 1:03/03/2018 2:12am Urine Clarity CLEAR CLEAR 03/03/2018 1:03/03/2018 2:12am Urine Specific [place] 1.025 1.010-1.025 03/03/2018 1:2017 2:12am Urine pH 6 5 - 7 03/03/2018 1:03/03/2018 2:12am Urine Leukocyte Esterase NEGATIVE NEGATIVE 03/03/2018 1:2017 2:12am Urine Nitrite NEGATIVE NEGATIVE 03/03/2018 1:03/03/2018 2:12am Urine Protein 2+ H NEGATIVE 03/03/2018 1:03/03/2018 2:12am Urine Glucose (UA) NEGATIVE NEGATIVE 03/03/2018 1:03/03/2018 2: 12am Urine Ketones NEGATIVE NEGATIVE 03/03/2018 1:03/03/2018 2:12am Urine Urobilinogen 0.2 mg/dL 0.2 - 1 03/03/2018 1:03/03/2018 2: 12am Urine Bilirubin 1+ H NEGATIVE 03/03/2018 1:03/03/2018 2:12am Confirmatory test currently unavailable. False positive results may occur. Urine Blood NEGATIVE NEGATIVE 03/03/2018 1:03/03/2018 2:12am Urine WBC 0-5 /HPF 0-5 03/03/2018 1:03/03/2018 2:21am Urine RBC 0-5 /HPF 0-5 03/03/2018 1:03/03/2018 2:21am Urine Bacteria MODERATE /HPF H NONE 03/03/2018 1:03/03/2018 2:21am Urine Epithelial Cells NONE /LPF NONE 03/03/2018 1:03/03/2018 2: 21am Urine Mucus FEW H RARE 03/03/2018 1:19am 03/03/2018 2:21am Sodium Level 137 mmol/L 136-145 03/07/2018 5:5803/07/2018 7:11am Potassium Level 4.4 mmol/L 3.5-5.1 03/07/2018 5:58am 03/07/2018 7:11am Chloride Level 98 mmol/L 98-107 03/07/2018 5:58am 03/07/2018 7:11am Carbon Dioxide Level 31 mmol/L H 22-29 03/07/2018 5:58am 03/07/2018 7: 11am Anion Gap 12.4 mmol/L 8-16 03/07/2018 5:58am 03/07/2018 7:11am Blood Urea Nitrogen 23 mg/dL 7-03/07/2018 5:58am 03/07/2018 7:11am Creatinine 1.24 mg/dL 0.72-1.25 03/07/2018 5:58am 03/07/2018 7:11am BUN/Creatinine Ratio 19 6-03/07/2018 5:5803/07/2018 7:11am Estimat Glomerular Filtration Rate > 60 ML/MIN 60- 03/07/2018 5:58am 7:11am Ranges were taken from the National Kidney Disease Education Program and the National [employer] literature. Reference ranges: 60 or greater: Normal 16-59 (for 3 consecutive months): Chronic kidney disease 15 or less: Kidney failure Glucose Level 363 mg/dL H 74-118 03/07/2018 5:5803/07/2018 7:11am Calcium Level 9.0 mg/dL 8.4-10.2 03/07/2018 5:5803/07/2018 7:11am Bedside Glucose 368 mg/dL H 70-120 03/07/2018 3:55pm 03/07/2018 4:06pm Meter ID: [id number] Lactic Acid Level 12.0 MG/DL 4.5-19.8 03/03/2018 1:19am 03/03/2018 1: 43am Magnesium Level 1.9 MG/DL 1.3-2.1 03/07/2018 5:5803/07/2018 7:11am Total Bilirubin 0.6 mg/dL 0.2-1.2 03/03/2018 1:03/03/2018 1:46am Aspartate Amino Transf (AST/SGOT) 37 IU/L H 5-34 03/03/2018 1:03/03 1:46am Alanine Aminotransferase (ALT/SGPT) 46 IU/L 0-55 03/03/2018 1:03/2018 1:46am Total Protein 7.4 g/dL 6.5-8.1 03/03/2018 1:03/03/2018 1:46am Albumin 3.3 g/dL L 3.5-5.0 03/03/2018 1:03/03/2018 1:46am Globulin 4.1 g/dL H 2.3-3.5 03/03/2018 1:03/03/2018 1:46am Albumin/Globulin Ratio 0.8 0.8-2.0 03/03/2018 1:03/03/2018 1: 46am Alkaline Phosphatase 88 IU/L 40-150 03/03/2018 1:03/03/2018 1: 46am B-Type Natriuretic Peptide 418.9 pg/mL H 0-100 03/06/2018 6:02am 2017 7:18am Creatine Kinase 127 IU/L 30-200 03/03/2018 5:45pm 03/03/2018 6:45pm Creatine Kinase MB 4.20 ng/mL 0-5.0 03/03/2018 5:45pm 03/03/2018 6: 45pm Troponin I 0.034 ng/mL 0-0.300 03/03/2018 5:45pm 03/03/2018 6:45pm Thyroid Stimulating Hormone (TSH) 0.395 uIU/mL 0.350-4.940 03/04/2018 6: 30am 03/04/2018 7:35am Microbiology Results Procedure Source Organism/Result Collection Date/Time Result Date/Time Result Status Blood Culture Blood NO GROWTH AFTER 5 DAYS, FINAL REPORT 02/11/2018 9:12am 02/16/2018 9:16am Final Sputum Culture Sputum, Expectorated Sputum YEAST SPECIES 03/05/2018 1:54pm 03/07/2018 9:29am Preliminary Procedures Procedure Status Date Provider(s) INTRODUCE OF OTH THERAP SUBST INTO RESP TRACT, VIA OPENING Completed GENARO AMADO MD ASSISTANCE WITH RESPIRATORY VENTILATION, 24-96 HRS, CPAP Completed 02/11/18 GENARO AMADO MD X-ray of chest, single view Active 11/03/17 ALVA PADILAL Computed tomography of brain without radiopaque contrast Active 02/11/18 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
[2018-03-16] MEDS ORDERED: DIAZEPAM 5 MG TAB PO STA (13:24)
[2018-03-16] MEDS ORDERED: HYDROCODONE/APAP 10MG-325MG TAB PO NR ×2 (13:30→14:30)
--- NOTE | 2018-03-16 14:30 | Diagnostic Imaging Report ---
EXAMINATION: Lumbar spine series. CLINICAL HISTORY: Back pain COMPARISON: None. DISCUSSION: 3 views of the lumbar spine are submitted for interpretation. Five nonrib-bearing lumbar type vertebral bodies are identified. No acute, displaced fractures or dislocation. Status post posterior fusion of L4-S1 with bilateral intrapedicular screws, intervening rods and intervertebral disc spacers. No significant spondylolisthesis. Vertebral body heights are preserved. Degenerative disc changes L3-L4. Sacroiliac joints are unremarkable. Soft tissues have a normal appearance. IMPRESSION: 1. Status post posterior fusion of L4-S1 with intact hardware. No acute abnormalities. The staff physician below has personally reviewed this exam on the date of dictation. Signed by: Dr. Dejan Ceron M.D. on 03/16/2018 2:27 PM
== END 2018-03-16 16:13 | disposition home or self-care (01) ==
LOC: ER 12:54
CPT/HCPCS: 72100; 99283

== ENCOUNTER 2018-03-20 14:45 | Inpatient (IN) | payer OTHER ==
[~2018-03-20] VITALS: Ht 177.8 cm; Wt 135.6 kg
--- OUTSIDE RECORDS SUMMARY | 2018-03-20 14:47 | XMS REPORT | Clinical Summary ---
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 08/30/2017 Hospital Cardiology Wilber Quiñones MD Acute on chronic - Encounter Marcos Pride MD congestive heart failure, 09/05/2017 unspecified congestive heart failure type (Primary Dx) 07/31/2017 [facility] Neurology Neil Patel Hypertension, - Encounter [...] LAPAROSCOPIC 07/13/2017 Procedure Pass General Surgery 07/12/2017 [facility] General Surgery Cha Ibarra MD Acute [...] Malignant hypertension; Hyperlipidemia, unspecified hyperlipidemia type after 03/19/2017 Immunizations Name Dates Previously Given Next Due [...] Taken Blood Pressure 156/93 10/19/2017 9:19 AM CLOTHES SEPARATOR Pulse 85 10/19/2017 9:19 AM CLOTHES SEPARATOR Temperature 35.8 C (96.4 F) 10/19/2017 9:19 AM CLOTHES SEPARATOR Respiratory Rate 16 10/15/2017 3:44 PM CLOTHES SEPARATOR Oxygen Saturation 93% 10/15/2017 3:44 PM CLOTHES SEPARATOR Inhaled Oxygen - - Concentration Weight 136 kg (299 lb 12.8 oz) 10/19/2017 9:19 AM CLOTHES SEPARATOR Height 177.8 cm (5' 10") 10/19/2017 9:19 AM CLOTHES SEPARATOR Body Mass Index 43.02 10/19/2017 9:19 AM CLOTHES SEPARATOR Plan of Treatment Health Maintenance Due Date Last Done Comments DIABETIC FOOT EXAM 1971 DIABETIC RETINAL EYE EXAM 1971 COLON CANCER SCREENING 2011 SHINGRIX VACCINE (#1) 2011 INFLUENZA VACCINE 05/29/2018 08/05/2017, 12/27/2016 Implants Implanted Type Area Spar Cap Beveler Device Expiration Model / Identifier Date Serial / Lot [place] Assonet Df4 Tachy Lead - Cardiac N/A: N/A BROGAN 11/29/2021 [id number] / [id number] Pacing SCIENTIFIC- CRM / Implanted: Qty: 1 on 10/03/2017 by Leads or [id number] Abraham Barreto Jr., MD Electrodes or Accessorie s [place] El Icd Df4 Vr Defibrilla BOSTON D150 / Implanted: Qty: 1 on 10/03/2017 by tor ICD SCIENTIFIC [id number] / Abraham Barreto Jr., MD Devices [id number] Pins In Lumbar L4-L5 Procedures Procedure Name Priority Date/Time Associated Diagnosis Comments ECHOCARDIOGRAM 2D LIMITED STAT 10/04/2017 Results for this 4:25 PM CLOTHES SEPARATOR procedure are in the results section. EP AICD IMPLANT SINGLE Routine 10/03/2017 Results for this DUAL BI VENT 11:27 AM CLOTHES SEPARATOR procedure are in the results section. ECHOCARDIOGRAM 2D Routine 10/02/2017 Results for this COMPLETE W MMODE SPECTRAL 4:21 PM CLOTHES SEPARATOR procedure are in the COLOR DOPPLER (13436) results section. SD CRITICAL CARE, E/M Routine 09/30/2017 Results for this 30-74 MINUTES 12:25 AM CLOTHES SEPARATOR procedure are in the results section. SD CRITICAL CARE, E/M Routine 08/31/2017 Results for this 30-74 MINUTES 10:46 AM CDT procedure are in the results section. CONSULT CARDIAC REHAB Routine 08/08/2017 PHASE 1 12:05 PM CDT SD CRITICAL CARE, E/M Routine 08/01/2017 Results for this 30-74 MINUTES 8:54 AM CDT procedure are in the results section. SD AN ELECTIVE Routine 07/17/2017 ENDOTRACHEAL AIRWAY 8:36 AM CDT Procedure Note - Lizzy Salazar, CHANNEL CEMENTER - 07/17/2017 8:14 AM CDT Airway Date/Time: [...] procedure are in the results section. after 03/19/2017 Results * Estimated GFR (10/19/2017 10:00 AM) [...] and Americans. Specimen Performing Laboratory Plasma specimen [facility] DEPARTMENT OF PATHOLOGY AND GENOMIC MEDICINE [address] [place] [address] * B natriuretic peptide (10/19/2017 10:00 AM) Only the most recent of 18 results within the time period is included. Component Value Ref Range BNP 1,574 (H) 0 - 100 pg/mL Specimen Performing Laboratory Blood [facility] DEPARTMENT OF PATHOLOGY AND [address] [address] * Magnesium level (10/19/2017 10:00 AM) Only the most recent of 25 results within the time period is included. Component Value Ref Range Magnesium 1.8 1.6 - 2.6 mg/dL Specimen Performing Laboratory Plasma specimen [facility] DEPARTMENT OF PATHOLOGY AND GENOMIC MEDICINE [address] [place] [address] * Basic metabolic panel (10/19/2017 10:00 AM) [...] 10.2 mg/dL Specimen Performing Laboratory Plasma specimen [facility] DEPARTMENT OF PATHOLOGY AND GENOMIC MEDICINE [address] [place] [address] * XR Chest 1 Vw Portable (10/15/2017 3:49 PM) Only the most recent of 12 results within the time period is included. Specimen Performing Laboratory [facility] [address] [place] [address] Narrative Examination:XR CHEST 1 VW PORTABLE Clinical history:"Pleural Effusions" Comparison:10/04/2017 IMPRESSION: There are no new alveolar opacities within either lung.Bibasilar opacities consistent with atelectasis versus small infiltrates appear unchanged. No pneumothoraces are identified. The cardiomediastinal silhouette is unchanged. The bones of the chest are unchanged. Cardiac pacer is again seen. [facility]-[id number] Procedure Note [facility], Radiology Results Incoming - 10/15/2017 3:59 PM CLOTHES SEPARATOR Examination: XR CHEST 1 VW PORTABLE Clinical history: "Pleural Effusions" Comparison: 10/04/2017 IMPRESSION: There are no new alveolar opacities within either lung. Bibasilar opacities consistent with atelectasis versus small infiltrates appear unchanged. No pneumothoraces are identified. The cardiomediastinal silhouette is unchanged. The bones of the chest are unchanged. Cardiac pacer is again seen. [facility]-[id number] * POC glucose (10/15/2017 11:38 AM) Only the most recent of 119 results within the time period is included. Component Value Ref Range POC glucose 248 (H) 65 - 99 mg/dL Comment: [facility] Notified RN Meter ID: [id number] Crystallographer: Gorge Hoffmann Specimen Performing Laboratory [facility] DEPARTMENT OF PATHOLOGY AND GENOMIC MEDICINE [address] [place] [address] * CBC with platelet and differential (10/14/2017 [...] (promyelocytes, myelocytes, metamyelocytes) Specimen Performing Laboratory Blood [facility] DEPARTMENT OF PATHOLOGY AND GENOMIC MEDICINE [address] [place] [address] * CT Chest Wo Contrast (10/10/2017 10:22 PM) Specimen Performing Laboratory [facility] [address] [place] [address] Narrative Examination:CT CHEST WO CONTRAST Clinical History: [...] the left lingular and bilateral lower lobes. [facility]-[id number] Procedure Note [facility], Radiology Results Incoming - 10/10/2017 10:53 PM CLOTHES SEPARATOR Examination: CT CHEST WO CONTRAST Clinical History: [...] the left lingular and bilateral lower lobes. [facility]-[id number] * Potassium level (10/10/2017 2:15 PM) Only the most recent of 3 results within the time period is included. Component Value Ref Range Potassium 5.0 3.5 - 5.0 mEq/L Specimen Performing Laboratory Plasma specimen [facility] DEPARTMENT OF PATHOLOGY AND GENOMIC MEDICINE [address] [place] [address] * NM Lung Ventilation Perfusion (10/08/2017 9:48 AM) Specimen Performing Laboratory [facility] [address] [place] [address] Narrative PROCEDURE:WY LUNG VENTILATION PERFUSION INDICATION:Evaluate for [...] be excluded based on this study, however. [facility]-[id number] Procedure Note Interface, Radiology Results Incoming - 10/08/2017 9:59 AM CLOTHES SEPARATOR PROCEDURE: W[place] LUNG VENTILATION PERFUSION INDICATION: Evaluate [...] excluded based on this study , however. [facility]-[id number] * Smear review (10/07/2017 4:15 AM) Only the most recent of 2 results within the time period is included. Component Value Ref Range Platelet slide review Isa slt decr Enlarged platelets Moderate (A) Specimen Performing Laboratory [facility] DEPARTMENT OF PATHOLOGY AND GENOMIC MEDICINE [address] [place] [address] * Urinalysis screen and microscopy, with reflex [...] UA 4 /LPF Specimen Performing Laboratory Urine [facility] DEPARTMENT OF PATHOLOGY AND GENOMIC MEDICINE [address] [place] [address] * Urine culture (10/06/2017 5:40 PM) Only the most recent of 5 results within the time period is included. Component Value Ref Range Urine culture SEE COMMENTComment: Bacteriuria screen negative. Specimen Performing Laboratory [facility] DEPARTMENT OF PATHOLOGY AND GENOMIC MEDICINE [address] [place] [address] * Blood culture, aerobic & anaerobic (10/06/2017 2:00 PM) Only the most recent of 2 results within the time period is included. Component Value Ref Range Blood culture isolate No growth after 5 days of incubation. Comment: Specimen Information Specimen Source: Blood Specimen Site: Forearm, left Specimen Performing Laboratory Blood - Forearm, left [facility] OF PATHOLOGY AND [facility] MEDICINE [address] [place] [address] * ECG 12 lead (10/06/2017 12:25 PM) Only the most recent of 10 results within the time period is included. Component Value Ref Range Ventricular rate 75 Atrial rate 75 SD interval 140 QRSD interval 118 QT interval 404 QTC interval 451 P axis 1 48 QRS axis 1 106 T wave axis 117 EKG impression Normal sinus rhythm-Right atrial enlargement-Rightward axis-Nonspecific intraventricular conduction delay-Nonspecific T wave abnormality-Abnormal ECG-In automated comparison with ECG of 04-OCT-2017 14:08,-No significant change was found- Specimen Performing Laboratory [facility] MUSE [address] [place] [address] * Echocardiogram 2d limited (10/04/2017 4:25 PM) Specimen Performing Laboratory [facility] [address] [id number] Narrative Echocardiography Report [address] [place] [address] Pat.Name:Beatris ISAAC.ID:[id number] St.Date: 10/04/2017 Refer.MD:MARCOS PRIDE MD Exam Time: 4:59:00 PMStudy Type:Routine Echo Height:70inWeight:272lb BSA: 2.38 m2 DOBAge:1960 ,56Y Sex: MALEBP: 125/66 HR:77 bpmSonogrphr: Kaycee Ascencio RDCS Pat. Stat.:Inpatient Room:A9 Study Status:Final Echo Event ID:[id number] Order ID:[id number] Reason for Study:Myocardial Ischemia / Infarction - acute ches pain with suspected CO and nondiagnostic ECG with a resting ECHO [...] not well seen. MEASUREMENTS: 2D Parasternal [place] Ao An2.2 cmLVPWd 1.5 cm LVOT 2.4 cmLA Ds 3.9 cm LVIDd6 cmIndex 2.5 cm/m Ao Rtd 3.5 cm Index1.5 cm/m LVIDs4.7 cm LV Xjls930.8 g(122-174) LV%fs 22 % LVM Index 197.8 g/m2 IVSd 1.6 cmRWT 0.5 Signed 10/04/2017 05:34 PM Shania Mustafa M.D. Procedure Note Interface, Radiology Results In - 10/04/2017 5:34 PM CLOTHES SEPARATOR Echocardiography Report [address] [place] [address] Pat.Name: SAM ISAAC.ID: [id number] .Date: 10/04/2017 Refer.MD: MARCOS PRIDE MD Exam Time: 4:59:00 PM Study Type:Routine Echo Height: 70in Weight: 272lb BSA: 2.38 m2 Age: 2 1960,56Y Sex: MALE BP: 125/66 HR: 77 bpm Sonogrphr: Kaycee Ascencio RDCS Pat. Stat.:Inpatient Room: [facility]anner Study Status:Final Echo Event ID:[id number] Order ID: [id number] Reason for Study:Myocardial Ischemia / Infarction - acute ches pain with suspected CO and nondiagnostic ECG with a resting ECHO [...] not well seen. MEASUREMENTS: 2D Parasternal [place] Ao An 2.2 cm LVPWd 1.5 cm [...] myocardial injury. Specimen Performing Laboratory Plasma specimen [facility] DEPARTMENT OF PATHOLOGY AND [facility] MEDICINE [address] [place] [address] * Partial thromboplastin time, activated (10/04/2017 2:22 PM) Only the most recent of 6 results within the time period is included. Component Value Ref Range PTT 23.3 23.0 - 36.0 sec Comment: PTT therapeutic range for unfractionated heparin is 61.0-112.0 seconds which corresponds to Anti-Xa 0.3-0.7 U/ml. Specimen Performing Laboratory Blood [facility] DEPARTMENT OF PATHOLOGY AND [address] [address] * Prothrombin time with INR (10/04/2017 2:22 [...] vein thrombosis/pulmonary embolism. Specimen Performing Laboratory Blood [facility] DEPARTMENT OF PATHOLOGY AND GENOMIC MEDICINE [address] [place] [address] * Phosphorus level (10/04/2017 2:22 PM) Only the most recent of 13 results within the time period is included. Component Value Ref Range Phosphorus 2.3 (L) 2.4 - 4.5 mg/dL Specimen Performing Laboratory Plasma specimen [facility] DEPARTMENT OF PATHOLOGY AND GENOMIC MEDICINE [address] [place] [address] * ECG Pre/Post Op-Tomorrow (10/04/2017 11:53 AM) Component Value Ref Range Ventricular rate 78 Atrial rate 78 SD interval 144 QRSD interval 114 QT interval 400 QTC interval 456 P axis 1 44 QRS axis 1 143 T wave axis 110 EKG impression Normal sinus rhythm-Possible Left atrial enlargement-Right axis deviation-Abnormal ECG-In automated comparison with ECG of 29-SEP-2017 19:29,-QT has shortened- Specimen Performing Laboratory [facility] MUSE [address] [place] [address] * Cv electrophysiology procedure (10/03/2017 11:27 AM) Specimen Performing Laboratory [facility] [address] [place] [address] Narrative TITLE OF PROCEDURE: Single chamber defibrillator [...] a scalpel, cautery, and blunt dissection.Using the iimq-xla-xuzp technique and an introducer sheath, a defibrillation [...] right ventricular apical defibrillation lead is a [employer] Endotak [place]-G, model 0296, serial #[id number].Measured R-wave 10.1 mV, pacing threshold 0.8 V, current 0.8 mA, impedance 982 ohms. 2.The defibrillator is a [employer] Dynagen EL ICD model D150, serial #[id number]. 3.Ventricular fibrillation was induced and the patient [...] period is included. Specimen Performing Laboratory [facility] [address] [place] [address] Narrative Vascular Ultrasound Laboratory Lower Extremity Venous Report [address]Name:Beatirs ISAAC.ID:[id number] St.Date: 10/02/2017 Refer.MD:MARCOS NUEMANN MD Exam Time: 5:20:00 PMStudy Type:LE Venous DOBAge:1960,56YSex: MALE Sonogrphr: [place]ION [place], SAVANNA Pat. Stat.:Inpatient Room:A9 0938 A TapeVol: FORTUNATO CPT - 4: 96651 Echo Event ID:[id number] Order ID:[id number] Reason for Study:Evaluate for DVT. History of [...] Radiology Results In - 10/02/2017 6:34 PM [facility] Vascular Ultrasound Laboratory Lower Extremity Venous Report [address] [place] [address] Pat.Name: SAM ISAAC.ID: [id number] .Date: 10/02/2017 Refer.MD: MARCOS NEUMANN MD Exam Time: 5:20:00 PM Study Type:LE Venous Age: 2 1960,56Y Sex: MALE Sonogrphr: [place], SAVANNA Pat. Stat.:Inpatient Room: A9 0938 A Tape Vol: FORTUNATO CPT - 4: 83325 Echo Event ID:[id number] Order ID: [id number] Reason for Study:Evaluate for DVT. History of [...] 4:21 PM) Specimen Performing Laboratory [facility] [address] [place] [address] Narrative Echocardiography Report [address]Name:Beatris ISAAC.ID:[id number] .Date: 10/02/2017 Refer.MD:MARCOS NEUMANN MD Exam Time: 4:15:00 PMStudy Type:Routine Echo Height:70inWeight:280lb BSA: 2.41 m2 DOBAge:1960 ,56Y Sex: MALEBP: 137/72 HR:73 bpmSonogrphr: Kaycee Ascencio RDCS Pat. Stat.:Inpatient Room:[facility] Study Status:Final Echo Event ID:[id number] Order ID:[id number] Reason for Study:HF - Re-eval of known [...] RAPof 10 mmHg. MEASUREMENTS: 2D Parasternal [place] LVOT 2.2 cmLA Ds 4.4 cm LVIDd6.6 cmIndex 2.7 cm/m Ao An2.4 cm LVIDs5.8 cmAo Rtd 3 cm Index1.3 cm/m LV%fs 12.1 % LV Suor843.4 g(122-174) IVSd 1.4 cmLVM Index 187.7 g/m2 [...] Radiology Results In - 10/02/2017 6:55 PM CLOTHES SEPARATOR Echocardiography Report [address] [place] [address] Pat.Name: SAM ISAAC Sadaf.ID: [id number] .Date: 10/02/2017 Refer.MD: MARCOS NEUMANN MD Exam Time: 4:15:00 PM Study Type:Routine Echo Height: 70in Weight: 280lb BSA: 2.41 m2 Age: 2 1960,56Y Sex: MALE BP: 137/72 HR: 73 bpm Sonogrphr: Kaycee Ascencio RDCS Pat. Stat.:Inpatient Room: [facility]anner Study Status:Final Echo Event ID:[id number] Order ID: [id number] Reason for Study:HF - Re-eval of known [...] of 10 mmHg. MEASUREMENTS: 2D Parasternal [place] LVOT 2.2 cm LA Ds 4.4 cm [...] - 100 % Specimen Performing Laboratory Blood [facility] DEPARTMENT OF PATHOLOGY AND GENOMIC MEDICINE [address] [place] [address] * Urine drugs of abuse screen (09/30/2017 [...] medical purposes only. Specimen Performing Laboratory Urine [facility] DEPARTMENT OF PATHOLOGY AND GENOMIC MEDICINE [address] [place] [address] * Urinalysis, automated with microscopy (09/30/2017 4:00 [...] None seen UA Specimen Performing Laboratory Urine [facility] DEPARTMENT OF PATHOLOGY AND GENOMIC MEDICINE [address] [place] [address] * Respiratory pathogen panel (09/30/2017 3:22 PM) [...] Specimen Performing Laboratory Nares - Not specified [facility] DEPARTMENT OF PATHOLOGY AND GENOMIC MEDICINE [address] [place] [address] * Hemoglobin A1c (09/30/2017 1:17 PM) Only [...] type 1 diabetes. Specimen Performing Laboratory Blood [facility] DEPARTMENT OF PATHOLOGY AND GENOMIC MEDICINE [address] [place] [address] * CRITICAL CARE (09/30/2017 12:25 AM) Narrative [...] of the following conditions:Cardiac failure, circulatory failure, MANAGER ACTION failure or compromise, dehydration, hepatic failure, metabolic [...] 308 U/L Specimen Performing Laboratory Plasma specimen [facility] DEPARTMENT OF PATHOLOGY AND GENOMIC MEDICINE [address] [place] [address] * Comprehensive metabolic panel (09/29/2017 9:56 PM) [...] 1.2 mg/dL Specimen Performing Laboratory Plasma specimen [facility] DEPARTMENT OF PATHOLOGY AND GENOMIC MEDICINE [address] [place] [address] * CRITICAL CARE (08/31/2017 10:46 AM) Gabriel [...] 7.0 mg/dL Specimen Performing Laboratory Plasma specimen [facility] DEPARTMENT OF PATHOLOGY AND GENOMIC MEDICINE [address] [place] [address] * Urine eosinophils (08/08/2017 12:24 PM) Only the most recent of 2 results within the time period is included. Component Value Ref Range Eosinophils, urine NONE Specimen Performing Laboratory Urine [facility] DEPARTMENT OF PATHOLOGY AND GENOMIC MEDICINE [address] [place] [address] * Renin activity (08/08/2017 12:24 PM) Component Value Ref Range Renin activity 31.4 Comment: Specimen diluted and results confirmed. INTERPRETIVE INFORMATION: Renin Activity Adult, Normal sodium diet: Supine ................. 0.2-1.6 ng/mL/hr Upright ................ 0.5-4.0 ng/mL/hr Children, Normal sodium diet, Supine: [place] (1-7 days) ..... 2.0-35.0 ng/mL/hr Cord blood [...] angiotensinogen is decreased. See Compliance Statement D: [email or web address] Performed by [facility], [address] [place] [address] www.[employer], Abhijit Howell MD - Lab. Director Specimen Performing Laboratory Blood [facility] [address] [place] [address] * Aldosterone, serum (08/08/2017 12:24 PM) Component [...] reference intervals for this test in the [facility] Test Directory ([email or web address]). Performed by [facility], [address] [place] [address] www.[employer], Abhijit Howell MD - Lab. Director Specimen Performing Laboratory Serum [facility] [address] [place] [address] * Sodium level, urine, random (08/08/2017 12:24 PM) Only the most recent of 2 results within the time period is included. Component Value Ref Range Sodium, urine, random 110 mEq/L Specimen Performing Laboratory Urine [facility] DEPARTMENT OF PATHOLOGY AND GENOMIC MEDICINE [address] [place] [address] * Protein, urine, random (08/08/2017 12:24 PM) Only the most recent of 2 results within the time period is included. Component Value Ref Range Protein, urine random <4 mg/dL Specimen Performing Laboratory Urine [facility] DEPARTMENT OF PATHOLOGY AND GENOMIC MEDICINE [address] [place] [address] * Potassium, urine, random (08/08/2017 12:24 PM) Only the most recent of 2 results within the time period is included. Component Value Ref Range Potassium, urine, random 26.0 mEq/L Specimen Performing Laboratory Urine [facility] DEPARTMENT OF PATHOLOGY AND GENOMIC MEDICINE [address] [place] [address] * Osmolality, urine (08/08/2017 12:24 PM) Only the most recent of 2 results within the time period is included. Component Value Ref Range Osmolality, urine 350 50 - 1,400 mOsm/kg Specimen Performing Laboratory Urine [facility] DEPARTMENT OF PATHOLOGY AND GENOMIC MEDICINE [address] [place] [address] * Creatinine level, urine, random (08/08/2017 12:24 PM) Only the most recent of 2 results within the time period is included. Component Value Ref Range Creatinine, urine, random 37 mg/dL Specimen Performing Laboratory Urine [facility] PATHOLOGY [facility] MEDICINE [address] [place] [address] * Chloride level, urine, random (08/08/2017 12:24 PM) Only the most recent of 2 results within the time period is included. Component Value Ref Range Chloride, urine, random 105 mEq/L Specimen Performing Laboratory Urine [facility] DEPARTMENT PATHOLOGY AND GENOMIC MEDICINE [address] [place] [address] * Thyroid stimulating hormone (08/08/2017 12:24 PM) Component Value Ref Range TSH 5.53 (H) 0.27 - 4.20 uIU/mL Specimen Performing Laboratory Plasma specimen [facility] DEPARTMENT OF PATHOLOGY AND [address] [address] * Parathyroid hormone (08/08/2017 12:24 PM) Component Value Ref Range PTH 84 (H) 15 - 65 pg/mL Specimen Performing Laboratory Blood [facility] PATHOLOGY AND [address] [address] * Osmolality, serum (08/08/2017 12:24 PM) Component Value Ref Range Osmolality 301 (H) 275 - 295 mOsm/kg Specimen Performing Laboratory Blood [facility] PATHOLOGY [address] [address] * CBC hemogram (08/08/2017 4:15 AM) Only [...] 0.00 /100 WBC Specimen Performing Laboratory Blood [facility] PATHOLOGY AND [address] [address] * CT Abdomen Pelvis Wo Contrast (08/03/2017 8:26 PM) Only the most recent of 2 results within the time period is included. Specimen Performing Laboratory [facility] [address] [place], [place] [id number] Narrative EXAMINATION:CT ABDOMEN PELVIS WO CONTRAST CLINICAL [...] 4.There is hardware in the lumbar spine. [facility]-[id number] Procedure Note [facility], Radiology Results Incoming - 08/03/2017 8:58 [...] There is hardware in the lumbar spine. [facility]-[id number] * CRITICAL CARE (08/01/2017 8:54 AM) Narrative [...] Chest (07/31/2017 6:34 PM) Specimen Performing Laboratory [facility] [address] [place] [place] [id number] Narrative EXAMINATION:XR ABDOMEN ACUTE INC CHEST CLINICAL HISTORY: Bowel ileus COMPARISON:None. FINDINGS: Heart size is enlarged. There is vascular congestion with basal volume loss and fluid on each side. There are postoperative changes in the lower lumbar spine. There are also surgical clips in the right upper quadrant. Bowel gas pattern is nonspecific. IMPRESSION: As above [facility]-[id number] Procedure Note Interface, Radiology Results Incoming - [...] gas pattern is nonspecific. IMPRESSION: As above [id number] * Ionized calcium (07/19/2017 1:20 AM) Only the most recent of 4 results within the time period is included. Component Value Ref Range pH 7.60 Ionized calcium 1.07 (L) 1.11 - 1.32 mmol/L Specimen Performing Laboratory Plasma specimen [facility] DEPARTMENT OF PATHOLOGY AND GENOMIC MEDICINE [address] [place] [address] * Hepatic function panel (07/19/2017 1:20 AM) [...] 50 U/L Specimen Performing Laboratory Plasma specimen [facility] DEPARTMENT OF PATHOLOGY AND GENOMIC MEDICINE [address] [place] [address] * XR Abdomen 1 Vw Portable (07/17/2017 3:06 PM) Specimen Performing Laboratory [facility] [address] [place] [address] Narrative EXAMINATION:XR ABDOMEN 1 VW PORTABLE CLINICAL HISTORY:Check feeding tube placement COMPARISON:None. IMPRESSION: There is a nonspecific bowel gas pattern. No free air is identified. Nasogastric tube terminates in the body the stomach Postoperative changes of lumbar spine The gallbladder has been removed [facility]-[id number] Procedure Note Interface, Radiology Results Incoming - 07/17/2017 4:02 PM CDT EXAMINATION: XR ABDOMEN 1 VW PORTABLE CLINICAL HISTORY: Check feeding tube placement COMPARISON: None. IMPRESSION: There is a nonspecific bowel gas pattern. No free air is identified. Nasogastric tube terminates in the body the stomach Postoperative changes of lumbar spine The gallbladder has been removed [facility]-[id number] * Surgical pathology request (07/17/2017 12:10 PM) Component Value Ref Range Surgical pathology report See link below for PDF Lab Report Specimen Performing Laboratory [facility] DEPARTMENT OF PATHOLOGY AND GENOMIC MEDICINE [address] [place] [address] * Ionized calcium, arterial (07/17/2017 10:10 AM) Component Value Ref Range Ionized calcium, arterial 0.88 (L)Comment: Specimen is slightly hemolyzed. 1.11 - 1.32 mmol/L Interpret results accordingly. Specimen Performing Laboratory Blood [facility] DEPARTMENT OF PATHOLOGY AND GENOMIC MEDICINE [address] [place] [address] * Lactic acid level (07/17/2017 10:10 AM) Component Value Ref Range Lactic acid 1.8 0.5 - 2.2 mmol/L Specimen Performing Laboratory Plasma specimen [facility] DEPARTMENT OF PATHOLOGY AND GENOMIC MEDICINE [address] [place], [place] [id number] * Type and screen (07/17/2017 4:30 AM) Component Value Ref Range ABO grouping O Rh type POS Antibody screen (gel) NEG Specimen Performing Laboratory Blood [facility] DEPARTMENT OF PATHOLOGY AND [facility] MEDICINE [address] [place] [address] * HCV qualitative by PCR (07/14/2017 4:00 AM) Component Value Ref Range HCV PCR result Detected (A) Not-Detected HCV RNA qualitative See link below for PDF Lab ReportComment: Specimen Performing Laboratory [facility] DEPARTMENT OF PATHOLOGY AND [address] [address] * Hepatitis C antibody (07/14/2017 4:00 AM) Component Value Ref Range Hepatitis C Ab Reactive (A) Non-reactive Comment: HCV antibody testing initially Reactive. Confirmation by HCV RNA PCR will be performed and reported separately when completed. Repeat HCV RNA PCR will not be performed if done within 30 days. Specimen Performing Laboratory Blood [facility] DEPARTMENT OF PATHOLOGY AND GENOMIC MEDICINE [address] [place] [address] * Hepatitis C virus quantitative by PCR (07/14/2017 4:00 AM) Component Value Ref Range Hepatitis C quantitative, 13,900,000 (A) Not-Detected IU/mL PCR Hepatitis C quantitative, See link below for PDF Lab ReportComment: Case PCR Number: [id number] Specimen Performing Laboratory [facility] DEPARTMENT [place] [address] * MRI CHOLANGIOGRAM W WO CONTRAST (07/13/2017 10:04 PM) Specimen Performing Laboratory [facility] [address] [place] [address] Narrative EXAMINATION:MRI CHOLANGIOGRAM W WO CONTRAST CLINICAL [...] No evidence of biliary dilatation or choledocholithiasis. [id number] Procedure Note [facility], Radiology Results Incoming - 07/13/2017 10:56 [...] No evidence of biliary dilatation or choledocholithiasis. [id number] * [place] Hepatobiliary (HIDA Scan) (07/13/2017 3:07 PM) Specimen Performing Laboratory [address] [address] Narrative PROCEDURE:[place] HEPATOBILIARY (HIDA SCAN) INDICATION:Abdominal pain. [...] obstruction. 2.The common bile duct is patent. [facility]-[id number] Procedure Note Interface, Radiology Results [facility] - 07/13/2017 3:23 PM CDT PROCEDURE: NM [...] 2. The common bile duct is patent. [id number] * Lipase level (07/13/2017 4:00 AM) Component Value Ref Range Lipase 18 13 - 60 U/L Specimen Performing Laboratory Plasma specimen [facility] DEPARTMENT OF PATHOLOGY AND GENOMIC MEDICINE [address] [place] [address] * Amylase level (07/13/2017 4:00 AM) Component Value Ref Range Amylase 22 13 - 53 U/L Specimen Performing Laboratory Plasma specimen [facility] DEPARTMENT OF PATHOLOGY AND [facility] MEDICINE [address] [place] [address] * Lipid panel (07/13/2017 4:00 AM) Only [...] (>=200 mg/dL) Specimen Performing Laboratory Plasma specimen [facility] DEPARTMENT OF PATHOLOGY AND GENOMIC MEDICINE [address] [place] [address] * US Gallbladder (07/13/2017 12:54 AM) Specimen Performing Laboratory [address] [address] Narrative EXAMINATION:US GALLBLADDER CLINICAL HISTORY:Cholecystitis COMPARISON:None. FINDINGS: [...] Common bile duct sonographically within normal limits. [id number] Procedure Note [facility], Radiology Results Incoming - 07/13/2017 1:02 [...] Common bile duct sonographically within normal limits. 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 Previous ECG: Previous ECG:Compared to current [...] ECG report.-Electronically Signed By Mecca BECKFORD, Carlton ([id number]), editor & co founder Mary Gross ([id number]) on 05/06/2017 6:03:03 AM Specimen Performing Laboratory [facility] [address] [place] [address] * Nm myocardial perfusion (05/05/2017 8:17 AM) Specimen Performing Laboratory [facility] [address] [place] [address] Narrative Nuclear Cardiology and Cardiac CT [address] [address] Myocardial Perfusion Imaging Report Stress ECG tracings are available in MUSE, EPIC and [email or web address] Web All ECG interpretations are included in this report Pat.Name:Beatris ISAAC.ID:[id number] St.Date: 05/05/2017Refer.MD:MARCOS PRIDE MD Exam Time: 8:17:00 AM Study Type:Myocardial Perfusion Imaging Height:70inWeight:285lb BSA: 2.43 m2 DOBAge:1960 ,56Y Sex: MALEBP: 142/86 HR:73 bpmNuclear Tech:MONAE Rebolledo Pat. Stat.:Inpatient Room:[facility] Nuclear Event ID:[id number] Order ID:[id number] Reason for Study:Chest pain, unspecified* History / Clinical:Congestive heart failure, Coronary artery disease, Hyperlipidemia, Hypertension, Obesity Procedures:Two Day Stress / Rest Race:-Angolan Risk Factors:Known Coronary Atherosclerosis, Hyperlipidemia, Hypertension, Obesity [...] AM CDT Nuclear Cardiology and Cardiac CT [address] [place] [address] Myocardial Perfusion Imaging Report Stress ECG tracings are available in MUSE, [employer] and CV Web All ECG interpretations are included in this report Pat.Name: SAM ISAAC Pat.ID: [id number] St.Date: 05/05/2017 Refer.MD: MARCOS PRIDE MD Exam Time: 8:17:00 AM Study Type:Myocardial Perfusion Imaging Height: 70in Weight: 285lb BSA: 2.43 m2 Age: 2 1960,56Y Sex: MALE BP: 142/86 HR: 73 bpm Nuclear Tech:MONAE Rebolledo Pat. Stat.:Inpatient Room: [facility] Nuclear Event ID:[id number] Order ID: [id number] Reason for Study:Chest pain, unspecified* History / Clinical:Congestive heart failure, Coronary artery disease, Hyperlipidemia, Hypertension, Obesity Procedures:Two Day Stress / Rest Race: -Angolan Risk Factors:Known Coronary Atherosclerosis, Hyperlipidemia, Hypertension, Obesity [...] 4:57 PM) Specimen Performing Laboratory [facility] [address] [place] [address] Narrative Examination:XR CHEST 2 VW Clinical history:"R06.02 Shortness of breath, r06.02" Comparison:04/15/2017 IMPRESSION: There is improved aeration of both lung bases.Faint left anterior, basilar pleural thickening versus a small loculated left pleural effusion cannot be excluded.Otherwise, there are no apparent infiltrates or pneumothoraces.The borderline prominent cardiomediastinal silhouette and the imaged bones are stable in appearance. [id number] Procedure Note Hm Interface, Radiology Results Incoming [...] the imaged bones are stable in appearance. [id number] * CT Angiogram Pe Chest (04/15/2017 5:32 AM) Specimen Performing Laboratory [facility] [address] [place] [address] Narrative EXAMINATION:CT ANGIOGRAM PE CHEST CLINICAL HISTORY: [...] AM and acknowledged understanding of the findings. [id number] Procedure Note [facility], Radiology Results Incoming - 04/15/2017 6:05 [...] AM and acknowledged understanding of the findings. [facility]-[id number] after 03/19/2017 Insurance Payer Benefit Subscriber ID Type Phone Address Plan / Group UHC MEDICAID [employer] xxxxxxxxx O COMM STAR+ ALEJANDRA Home: [address] [place], [place] [phone] [address]
--- OUTSIDE RECORDS SUMMARY | 2018-03-20 14:48 | XMS REPORT | Continuity of Care Document ---
Author Author [facility] Organization [facility] Address [address] [place] [address] Phone Unavailable Care Team Providers Care Manager Validation Name Role Phone JUAN BENÍTEZ DO PCP Insurance Providers Guarantor Jeancarlos Isaac Address [address] [place] [address] Email NONE Payer [facility] [employer] Policy Number [id number] Subscriber's Name Jeancarlos Isaac Relationship 18 Self / Same As Patient Effective Date 11 Advance Directives Directive Response Recorded Date/Time Does the patient have an advance directive? No 03/03/18 9:40am If yes, is advance directive on file with [facility]? No 11/04/17 12:26am If not on file with [facility] will patient provide a copy? No 02/11/18 4:27am Do you have a Directive to Physician? No 03/16/18 2:08pm Do you have a Medical Power of Envelope Fold Operator? No 03/16/18 2:08pm Do you have an out of hospital Do Not Resuscitate Order? No 03/16/18 2:08pm Do you have any special needs we should be aware of? No 03/16/18 2:08pm Do you have a support person here with you today? Yes 03/16/18 2:08pm Did patient receive Notice of Privacy Practices? Yes 03/16/18 2:08pm Did patient receive patient rights and responsibilities? Yes 03/16/18 2:08pm Problems Medical Problem Onset Date Status Bronchitis Unknown COPD exacerbation Unknown Chest pain Unknown Fever Unknown Medications Current Home Medications Medication Dose Units Route Directions Days Qty Instructions Start Date Aspirin (Aspir 81) 81 Mg Tablet. Atorvastatin Calcium 10 Mg Tablet 10 Mg Oral Today At 9:00PM 30 Tab Bisacodyl 5 Mg Tablet.dr 10 Mg Oral Daily as needed for [...] information available. Plan of Care Discharge Date 03/16/18 4:13pm Disposition HOME, SELF-CARE Condition at Discharge Stable Instructions/Education Provided Strains Back Pain Forms Provided Work/School Excuse Prescriptions See Medication Section Referrals JUAN BENÍTEZ DO Address: [address] [place] [address] Additional Instructions/Education FOLLOW UP WITH YOUR PRIMARY DOCTOR TAKE MEDICATIONS PRESCRIBED Functional Status No functional status information available. [...] 03/07/2018 6:10pm Height 5 ft 10 in 03/16/2018 1:25pm Weight 287 lb 03/16/2018 1:25pm Body Mass Index 41.2 kg/m^2 03/16/2018 1:25pm Results Laboratory Results Test Name Result Units [...] 6:34am Platelet Count 142 x10e3/uL 140-360 03/07/2018 5:58am 03/07/2018 6: 34am Neutrophils (%) (Auto) 86.0 % H 38.7-80.0 03/07/2018 5:58am 03/07/2018 6 :34am Lymphocytes (%) (Auto) 10.1 % L 18.0-39.1 03/07/2018 5:58am 03/07/2018 6 :34am Monocytes (%) (Auto) 3.0 % L 4.4-11.3 03/07/2018 5:5803/07/2018 6: 34am Eosinophils (%) (Auto) 0.0 % 0.0-6.0 03/07/2018 5:5803/07/2018 6: 34am Basophils (%) (Auto) 0.1 % 0.0-1.0 03/07/2018 5:5803/07/2018 6:34am IM GRANULOCYTES % 0.8 % 0.0-1.0 03/07/2018 5:5803/07/2018 6:34am Neutrophils # (Auto) 10.6 H 2.1-6.9 03/07/2018 5:5803/07/2018 6: 34am Lymphocytes # (Auto) 1.3 1.0-3.2 03/07/2018 5:5803/07/2018 6:34am Monocytes # (Auto) 0.4 0.2-0.8 03/07/2018 5:5803/07/2018 6:34am Eosinophils # (Auto) 0.0 0.0-0.4 03/07/2018 5:5803/07/2018 6:34am Basophils # (Auto) 0.0 0.0-0.1 03/07/2018 5:5803/07/2018 6:34am Absolute Immature Granulocyte (auto 0.10 x10e3/uL 0-0.1 03/07/2018 5: 5803/07/2018 6:34am Prothrombin Time 12.6 seconds 11.9-14.5 03/03/2018 1:1903/03/2018 2: 05am Prothromb Time International Ratio 1.02 03/03/2018 1:192017 2:05am Oral Anticoagulant Therapy INR Values: 1. [...] CLEAR CLEAR 03/03/2018 1:03/03/2018 2:12am Urine Specific [place] 1.025 1.010-1.025 03/03/2018 1:2017 2:12am Urine pH [...] 21am Urine Mucus FEW H RARE 03/03/2018 1:03/03/2018 2:21am Sodium Level 137 mmol/L 136-145 03/07/2018 5:58am 03/07/2018 7:11am Potassium Level 4.4 mmol/L 3.5-5.1 03/07/2018 5:58am 03/07/2018 7:11am Chloride Level 98 mmol/L 98-107 03/07/2018 5:58am 03/07/2018 7:11am Carbon Dioxide Level 31 mmol/L H 22-29 03/07/2018 5:58am 03/07/2018 7: 11am Anion Gap 12.4 mmol/L 8-16 03/07/2018 5:58am 03/07/2018 7:11am Blood Urea Nitrogen 23 mg/dL 7-03/07/2018 5:58am 03/07/2018 7:11am Creatinine 1.24 mg/dL 0.72-1.25 03/07/2018 5:58am 03/07/2018 7:11am BUN/Creatinine Ratio 19 6-03/07/2018 5:58am 03/07/2018 7:11am Estimat Glomerular Filtration Rate > 60 ML/MIN 60- 03/07/2018 5:58am 7:11am Ranges were taken from the National Kidney Disease Education Program and the National Kidney Foundation literature. Reference ranges: 60 or greater: Normal 16-59 (for 3 consecutive months): Chronic kidney disease 15 or less: Kidney failure Glucose Level 363 mg/dL H 74-118 03/07/2018 5:58am 03/07/2018 7:11am Calcium Level 9.0 mg/dL 8.4-10.2 03/07/2018 5:58am 03/07/2018 7:11am Bedside Glucose 368 mg/dL H 70-120 03/07/2018 3:55pm 03/07/2018 4:06pm Meter ID: [id number] Lactic Acid Level 12.0 MG/DL 4.5-19.8 03/03/2018 1:1903/03/2018 1: 43am Magnesium Level 1.9 MG/DL 1.3-2.1 03/07/2018 5:58am 03/07/2018 7:11am Total Bilirubin 0.6 mg/dL 0.2-1.2 03/03/2018 1:19am 03/03/2018 1:46am Aspartate Amino Transf (AST/SGOT) 37 IU/L [...] 9:16am Final Sputum Culture Sputum, Expectorated Sputum PARISH TROPICALIS 03/05/2018 1: 54pm 03/10/2018 5:58am Final Procedures Procedure Status Date Provider(s) INTRODUCE OF OTH THERAP SUBST INTO RESP TRACT, VIA OPENING Completed GENARO AMADO MD ASSISTANCE WITH RESPIRATORY VENTILATION, 24-96 HRS, CPAP Completed 02/11/18 GENARO AMADO MD X-ray of chest, single view Active 11/03/17 ALVA PADILLA Computed tomography of brain without radiopaque contrast Active 02/11/18 LEIDY BEDOLLA BRICK PITCHER Encounters Encounter Location Arrival/Admit Date Discharge/Depart Date Attending Provider Departed Emergency Room [facility] 03/16/18 12:54pm 03/16 4:13pm CORIN PAYAN MD Discharged Inpatient [facility] 03/03/18 4:24am 03/07/18 6:37pm GENARO AMADO MD Discharged Inpatient [facility] 02/11/18 6:45am 02/16/18 2:37pm GENARO AMADO MD Departed Emergency Room [facility] 02/03/18 5:37am 9:16am CORIN PAYAN MD Discharged Inpatient (obs) [facility] 11/03/17 8:46pm 07/16 6:21pm GENARO AMADO MD
[2018-03-20] MEDS ORDERED: IPRATROPIUM BROMIDE 0.02% 2.5 ML NEB NEB STA (15:09)
[2018-03-20] MEDS ORDERED: ALBUTEROL SULF 0.083% NEB SOLN 3 ML NEB NEB ONE (15:09)
[2018-03-20] MEDS ORDERED: ONDANSETRON HCL INJ 2 MG/ML VIAL IM ONE (15:09)
[2018-03-20] MEDS ORDERED: ASPIRIN 81 MG CHEW TAB PO ONE (15:15)
[2018-03-20] MEDS ORDERED: DIATRIZOATE MEGL/DIATRIZOA SOD 30 ML BTL PO ONE (15:19)
[2018-03-20 16:10] LABS: ABG HCO3 35 mmol/L (23-28); ABG PCO2 50 mmHg (41-51); ABG PH 7.46 (7.31-7.41); ABG PO2 139 mmHg (80-105)
--- NOTE | 2018-03-20 16:28 | Diagnostic Imaging Report ---
PROCEDURE: Frontal and lateral views of the chest. COMPARISON: None. INDICATIONS: sob, abdominal pain, fever FINDINGS: Lines/tubes: None. Left-sided AICD. Lungs: Patchy density in the left lower lobe concerning for pneumonia in the proper clinical setting. Pleura: Small left pleural effusion. There is no pneumothorax. Heart and mediastinum: The cardiac silhouette is moderately enlarged. Bones: No acute bony abnormality. IMPRESSION: 1. Patchy density in the left lower lobe concerning for pneumonia in the setting of shortness of breath and fever. Dasha Mathias M.D. Dictated by: Dasha Mathias M.D. on 03/20/2018 at 16:30 Electronically approved by: Dasha Mathias M.D. on 03/20/2018 at 16:30
[2018-03-20 16:51] LABS: BASOPHILS % 0.3 % (0.0-1.0); EOSINOPHILS # (AUTO) 0.3 (0.0-0.4); EOSINOPHILS % 3.1 % (0.0-6.0); HEMATOCRIT 40.5 % (38.2-49.6); HEMOGLOBIN 12.1 g/dL (14.0-18.0); LYMPHOCYTES % 29.3 % (18.0-39.1); MEAN CORPUSCULAR HEMOGLOBIN 26.4 pg (28-32); MEAN CORPUSCULAR HGB CONC 29.9 g/dL (31-35); MEAN CORPUSCULAR VOLUME 88.4 fL (81-99); MONOCYTES # (AUTO) 0.8 (0.2-0.8); MONOCYTES % 7.6 % (4.4-11.3); NEUTROPHILS % 59.3 % (38.7-80.0); PLATELET COUNT 156 x10e3/uL (140-360); RED BLOOD COUNT 4.58 x10e6/uL (4.3-5.7); RED CELL DISTRIBUTION WIDTH 13.3 % (11.7-14.4)
[2018-03-20 16:59] LABS: PROTHROMBIN TIME 12.4 seconds (11.9-14.5)
[2018-03-20 17:07] LABS: ALANINE AMINOTRANSFERASE 32 IU/L (0-55); ALBUMIN 2.9 g/dL (3.5-5.0); ALBUMIN/GLOBULIN RATIO 0.7 (0.8-2.0); ALKALINE PHOSPHATASE 53 IU/L (40-150); ANION GAP 10.8 mmol/L (8-16); BLOOD UREA NITROGEN 9 mg/dL (7-26); BUN/CREATININE RATIO 6 (6-25); CALCIUM 8.9 mg/dL (8.4-10.2); CARBON DIOXIDE 37 mmol/L (22-29); CHLORIDE 97 mmol/L (98-107); CREATINE KINASE 106 IU/L (30-200); CREATININE, SERUM 1.44 mg/dL (0.72-1.25); EST GLOMERULAR FILTRATION RATE > 60 ML/MIN (60-); GLUCOSE 148 mg/dL (74-118); LIPASE 8 U/L (8-78); POTASSIUM 3.8 mmol/L (3.5-5.1); SODIUM 141 mmol/L (136-145)
[2018-03-20 17:15] LABS: B-TYPE NATRIURETIC PEPTIDE2 386.6 pg/mL (0-100)
[2018-03-20 17:27] LABS: THYROID STIMULATING HORMONE 2.516 uIU/mL (0.350-4.940)
--- NOTE | 2018-03-20 18:40 | Diagnostic Imaging Report ---
EXAM: CT Chest, Abdomen and Pelvis WITH contrast INDICATION: Chest pain, shortness of breath. Abdominal pain, nausea and vomiting. COMPARISON: None. TECHNIQUE: Chest, abdomen and pelvis were scanned utilizing a multidetector helical scanner from the lung apex to the pubic symphysis before and after administration of IV contrast. Coronal and sagittal reformations were obtained. Pulmonary embolism protocol was performed of the chest. Scan was performed when during portal venous phase. IV CONTRAST: 100 cc Isovue 370 ORAL CONTRAST: 900 cc of Gastrografin and water mixture. RADIATION DOSE: Total DLP: 1373.43 mGy*cm Estimated effective dose: (DLP x 0.015 x size factor) mSv COMPLICATIONS: None FINDINGS: LINES and TUBES: None. Left-sided ICD. LUNGS AND AIRWAYS: Small filling defect in the posterior left lower lobe pulmonary artery on image 62 series 2, with blood flow distal to it, suggestive of small nonobstructing embolus. Mild bilateral patchy groundglass density. There is irregular patchy density in the lingula and posterior left lower lobe suggestive of subsegmental atelectasis. PLEURA: The pleural spaces are clear. HEART AND MEDIASTINUM: The thyroid gland is normal. No mediastinal, hilar or axillary lymphadenopathy. The heart is moderately enlarged with evidence of left ventricular hypertrophy. tThere is no pericardial effusion. Mild lipomatosis of the mediastinum. HEPATOBILIARY: No focal hepatic lesions. No biliary ductal dilation. GALLBLADDER: Status post cholecystectomy. SPLEEN: No splenomegaly. PANCREAS: No focal masses or ductal dilatation. ADRENALS: No adrenal nodules KIDNEYS/URETERS: Kidneys enhance symmetrically. No hydronephrosis. No cystic or solid mass lesions. No stones. GI TRACT: No abnormal distention, wall thickening, or evidence of bowel obstruction. Appendix is normal. Scattered descending and sigmoid colon diverticula without CT evidence of diverticulitis. PELVIC ORGANS/BLADDER: Mild diffuse thickening of the urinary bladder is likely related to underdistention. LYMPH NODES: There is celiac lymph node measures 1.4 cm in short axis on image 30 series 5. VESSELS: Atherosclerotic calcification of the aorta and iliac arteries without aneurysmal dilatation. PERITONEUM / RETROPERITONEUM: No free air or fluid. BONES: Status post laminectomy and posterior fusion of L4-L5 and L5-S1 with intact hardware. Degenerative disc disease at L2-L3 with effective disc phenomenon. SOFT TISSUES: A small fat-containing umbilical and right inguinal hernias. IMPRESSION: 1. Small nonocclusive embolus in the left lower lobe segmental pulmonary artery. Left basilar and lingular subsegmental atelectasis. 2. Colonic diverticulosis without significant pericolonic inflammatory change to suggest acute diverticulitis. Discussed with Dr. Olvera from the ER at 6:35 PM on 03/20/2018. Signed by: Dr. Dasha Mathias M.D. on 03/20/2018 6:36 PM
[2018-03-20] MEDS ORDERED: ENOXAPARIN INJ 80 MG/0.8 ML SYR SC STA (18:46)
[2018-03-20] MEDS ORDERED: ONDANSETRON HCL 4 MG ORAL DISINTEGRATING TAB PO ONE (19:15)
[2018-03-20] MEDS ORDERED: IOPAMIDOL 370 MG/ML 200 ML INFUS..BTL INJ ONE (19:29)
[2018-03-20] MEDS ORDERED: SODIUM CHLORIDE 0.9% 50ML 50 ML ONE (19:29)
[2018-03-20] MEDS ORDERED: ONDANSETRON HCL 4 MG ORAL DISINTEGRATING TAB PO PRN (19:45)
[2018-03-20] MEDS ORDERED: MORPHINE SULFATE 2 MG/ML SYR IV PRN (19:45)
[2018-03-20] MEDS ORDERED: DEXTROSE 50% SYRINGE 50 ML IV PRN (19:45)
[2018-03-20 20:17] LABS: CLARITY,URINE CLEAR (CLEAR); COLOR,URINE YELLOW (YELLOW); LEUKOCYTE ESTERASE ,URINE NEGATIVE (NEGATIVE); NITRITE,URINE NEGATIVE (NEGATIVE)
[2018-03-20 20:18] LABS: BILIRUBIN,URINE NEGATIVE (NEGATIVE); EPITHELIAL CELLS,URINE FEW /LPF; KETONES,URINE NEGATIVE (NEGATIVE); MUCUS,URINE FEW (RARE); PROTEIN,URINE DIPSTICK NEGATIVE (NEGATIVE); RBC,URINE 0-5 /HPF (0-5); URINE UROBILINOGEN 1 mg/dL (0.2 - 1); WBC,URINE (MAN) 0-5 /HPF (0-5)
--- OUTSIDE RECORDS SUMMARY | 2018-03-20 20:55 | XMS REPORT | Clinical Summary ---
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 08/30/2017 Hospital Cardiology Wilber Quiñones MD Acute on chronic - Encounter Marcos Pride MD congestive heart failure, 09/05/2017 unspecified congestive heart failure type (Primary Dx) 07/31/2017 [facility] Neurology Neil Patel Hypertension, - [...] LAPAROSCOPIC 07/13/2017 Procedure Pass General Surgery 07/12/2017 [facility] General Surgery Cha Ibarra MD [...] Taken Blood Pressure 156/93 10/19/2017 9:19 AM TERRITORY REPRESENTATIVE Pulse 85 10/19/2017 9:19 AM TERRITORY REPRESENTATIVE Temperature 35.8 C (96.4 F) 10/19/2017 9:19 AM TERRITORY REPRESENTATIVE Respiratory Rate 16 10/15/2017 3:44 PM TERRITORY REPRESENTATIVE Oxygen Saturation 93% 10/15/2017 3:44 PM TERRITORY REPRESENTATIVE Inhaled Oxygen - - Concentration Weight 136 kg (299 lb 12.8 oz) 10/19/2017 9:19 AM TERRITORY REPRESENTATIVE Height 177.8 cm (5' 10") 10/19/2017 9:19 AM TERRITORY REPRESENTATIVE Body Mass Index 43.02 10/19/2017 9:19 AM TERRITORY REPRESENTATIVE Plan of Treatment Health Maintenance Due Date Last Done Comments DIABETIC FOOT EXAM 1971 DIABETIC RETINAL EYE EXAM 1971 COLON CANCER SCREENING 2011 SHINGRIX VACCINE (#1) 2011 INFLUENZA VACCINE 05/29/2018 08/05/2017, 12/27/2016 Implants Implanted Type Area Masonry Supervisor Device Expiration Model / Identifier Date Serial / Lot [place] Df4 Tachy Lead - Cardiac N/A: N/A [place] 11/29/2021 [id number] / [id number] Pacing SCIENTIFIC- CRM / Implanted: Qty: 1 on 10/03/2017 by Leads or [id number] Abraham Barreto Jr., MD Electrodes or Accessorie s [place] El Icd Df4 Vr Defibrilla [place] D150 / Implanted: Qty: 1 on 10/03/2017 by tor ICD SCIENTIFIC [id number] / Abraham Barreto Jr., MD Devices [id number] Pins In Lumbar L4-L5 Procedures Procedure Name Priority Date/Time Associated Diagnosis Comments ECHOCARDIOGRAM 2D LIMITED STAT 10/04/2017 Results for this 4:25 PM TERRITORY REPRESENTATIVE procedure are in the results section. EP AICD IMPLANT SINGLE Routine 10/03/2017 Results for this DUAL BI VENT 11:27 AM TERRITORY REPRESENTATIVE procedure are in the results section. ECHOCARDIOGRAM 2D Routine 10/02/2017 Results for this COMPLETE W MMODE SPECTRAL 4:21 PM TERRITORY REPRESENTATIVE procedure are in the COLOR DOPPLER (25509) results section. IA CRITICAL CARE, E/M Routine 09/30/2017 Results for this 30-74 MINUTES 12:25 AM TERRITORY REPRESENTATIVE procedure are in the results section. IA CRITICAL CARE, E/M Routine 08/31/2017 Results for this 30-74 MINUTES 10:46 AM CDT procedure are in the results section. CONSULT CARDIAC REHAB Routine 08/08/2017 PHASE 1 12:05 PM CDT IA CRITICAL CARE, E/M Routine 08/01/2017 Results for this 30-74 MINUTES 8:54 AM CDT procedure are in the results section. IA AN ELECTIVE Routine 07/17/2017 ENDOTRACHEAL AIRWAY 8:36 AM CDT Procedure Note - Lizzy Salazar, DIRECTOR [employer] SYSTEM[employer] - 07/17/2017 8:14 AM CDT Airway Date/Time: [...] and Americans. Specimen Performing Laboratory Plasma specimen [facility] DEPARTMENT OF PATHOLOGY AND GENOMIC MEDICINE [address] [place] [address] * B natriuretic peptide (10/19/2017 10:00 AM) Only the most recent of 18 results within the time period is included. Component Value Ref Range BNP 1,574 (H) 0 - 100 pg/mL Specimen Performing Laboratory Blood [facility] DEPARTMENT OF PATHOLOGY AND [address] [address] * Magnesium level (10/19/2017 10:00 AM) Only the most recent of 25 results within the time period is included. Component Value Ref Range Magnesium 1.8 1.6 - 2.6 mg/dL Specimen Performing Laboratory Plasma specimen [facility] DEPARTMENT OF PATHOLOGY AND GENOMIC MEDICINE [address] [place] [address] * Basic metabolic panel (10/19/2017 10:00 AM) [...] 10.2 mg/dL Specimen Performing Laboratory Plasma specimen [facility] DEPARTMENT OF PATHOLOGY AND GENOMIC MEDICINE [address] [place] [address] * XR Chest 1 Vw Portable (10/15/2017 3:49 PM) Only the most recent of 12 results within the time period is included. Specimen Performing Laboratory [facility] [address] [place] [address] Narrative Examination:XR CHEST 1 VW PORTABLE Clinical history:"Pleural Effusions" Comparison:10/04/2017 IMPRESSION: There are no new alveolar opacities within either lung.Bibasilar opacities consistent with atelectasis versus small infiltrates appear unchanged. No pneumothoraces are identified. The cardiomediastinal silhouette is unchanged. The bones of the chest are unchanged. Cardiac pacer is again seen. [facility]-[id number] Procedure Note [facility], Radiology Results Incoming - 10/15/2017 3:59 PM TERRITORY REPRESENTATIVE Examination: XR CHEST 1 VW PORTABLE Clinical history: "Pleural Effusions" Comparison: 10/04/2017 IMPRESSION: There are no new alveolar opacities within either lung. Bibasilar opacities consistent with atelectasis versus small infiltrates appear unchanged. No pneumothoraces are identified. The cardiomediastinal silhouette is unchanged. The bones of the chest are unchanged. Cardiac pacer is again seen. [facility]-[id number] * POC glucose (10/15/2017 11:38 AM) Only the most recent of 119 results within the time period is included. Component Value Ref Range POC glucose 248 (H) 65 - 99 mg/dL Comment: [facility] Notified RN Meter ID: [id number] Pharmacy Messenger: Gorge Hoffmann Specimen Performing Laboratory [facility] DEPARTMENT OF PATHOLOGY AND GENOMIC MEDICINE [address] [place] [address] * CBC with platelet and differential (10/14/2017 [...] (promyelocytes, myelocytes, metamyelocytes) Specimen Performing Laboratory Blood [facility] DEPARTMENT OF PATHOLOGY AND GENOMIC MEDICINE [address] [place] [address] * CT Chest Wo Contrast (10/10/2017 10:22 PM) Specimen Performing Laboratory [facility] [address] [place] [address] Narrative Examination:CT CHEST WO CONTRAST Clinical History: [...] the left lingular and bilateral lower lobes. [facility]-[id number] Procedure Note [facility], Radiology Results Incoming - 10/10/2017 10:53 PM TERRITORY REPRESENTATIVE Examination: CT CHEST WO CONTRAST Clinical History: [...] the left lingular and bilateral lower lobes. [facility]-[id number] * Potassium level (10/10/2017 2:15 PM) Only the most recent of 3 results within the time period is included. Component Value Ref Range Potassium 5.0 3.5 - 5.0 mEq/L Specimen Performing Laboratory Plasma specimen [facility] DEPARTMENT OF PATHOLOGY AND GENOMIC MEDICINE [address] [place] [address] * NM Lung Ventilation Perfusion (10/08/2017 9:48 AM) Specimen Performing Laboratory [facility] [address] [place] [address] Narrative PROCEDURE:OR LUNG VENTILATION PERFUSION INDICATION:Evaluate for chronic PE. [...] be excluded based on this study, however. [facility]-[id number] Procedure Note Interface, Radiology Results Incoming - 10/08/2017 9:59 AM TERRITORY REPRESENTATIVE PROCEDURE: OR LUNG VENTILATION PERFUSION INDICATION: Evaluate for chronic [...] excluded based on this study , however. [facility]-[id number] * Smear review (10/07/2017 4:15 AM) Only the most recent of 2 results within the time period is included. Component Value Ref Range Platelet slide review Isa slt decr Enlarged platelets Moderate (A) Specimen Performing Laboratory [facility] DEPARTMENT OF PATHOLOGY AND GENOMIC MEDICINE [address] [place] [address] * Urinalysis screen and microscopy, with reflex [...] UA 4 /LPF Specimen Performing Laboratory Urine [facility] DEPARTMENT OF PATHOLOGY AND GENOMIC MEDICINE [address] [place] [address] * Urine culture (10/06/2017 5:40 PM) Only the most recent of 5 results within the time period is included. Component Value Ref Range Urine culture SEE COMMENTComment: Bacteriuria screen negative. Specimen Performing Laboratory [facility] DEPARTMENT OF PATHOLOGY AND GENOMIC MEDICINE [address] [place] [address] * Blood culture, aerobic & anaerobic (10/06/2017 2:00 PM) Only the most recent of 2 results within the time period is included. Component Value Ref Range Blood culture isolate No growth after 5 days of incubation. Comment: Specimen Information Specimen Source: Blood Specimen Site: Forearm, left Specimen Performing Laboratory Blood - Forearm, left [facility] OF PATHOLOGY AND [facility] MED[facility] [address] [place] [address] * ECG 12 lead (10/06/2017 12:25 PM) Only the most recent of 10 results within the time period is included. Component Value Ref Range Ventricular rate 75 Atrial rate 75 IA interval 140 QRSD interval 118 QT interval 404 QTC interval 451 P axis 1 48 QRS axis 1 106 T wave axis 117 EKG impression Normal sinus rhythm-Right atrial enlargement-Rightward axis-Nonspecific intraventricular conduction delay-Nonspecific T wave abnormality-Abnormal ECG-In automated comparison with ECG of 04-OCT-2017 14:08,-No significant change was found- Specimen Performing Laboratory [facility] MUSE [address] [place] [address] * Echocardiogram 2d limited (10/04/2017 4:25 PM) Specimen Performing Laboratory [facility] [address] [place] [id number] Narrative Echocardiography Report [address] [place] [address] Pat.Name:Beatris ISAAC.ID:[id number] St.Date: 10/04/2017 Refer.MD:MARCOS PRIDE MD Exam Time: 4:59:00 PMStudy Type:Routine Echo Height:70inWeight:272lb BSA: 2.38 m2 DOBAge:1960 ,56Y Sex: MALEBP: 125/66 HR:77 bpmSonogrphr: Kaycee Ascencio RDCS Pat. Stat.:Inpatient Room:A9 Study Status:Final Echo Event ID:[id number] Order ID:[id number] Reason for Study:Myocardial Ischemia / Infarction - acute ches pain with suspected CT and nondiagnostic ECG with a resting ECHO [...] not well seen. MEASUREMENTS: 2D Parasternal Long Ranger Ao An2.2 cmLVPWd 1.5 cm LVOT 2.4 cmLA Ds 3.9 cm LVIDd6 cmIndex 2.5 cm/m Ao Rtd 3.5 cm Index1.5 cm/m LVIDs4.7 cm LV Yctc586.8 g(122-174) LV%fs 22 % LVM Index 197.8 g/m2 IVSd 1.6 cmRWT 0.5 Signed 10/04/2017 05:34 PM Shania Mustafa M.D. Procedure Note Interface, Radiology Results In - 10/04/2017 5:34 PM TERRITORY REPRESENTATIVE Echocardiography Report [address] [place] [address] Pat.Name: SAM ISAAC.ID: [id number] .Date: 10/04/2017 Refer.MD: MARCOS PRIDE MD Exam Time: 4:59:00 PM Study Type:Routine Echo Height: 70in Weight: 272lb BSA: 2.38 m2 Age: 2 1960,56Y Sex: MALE BP: 125/66 HR: 77 bpm Sonogrphr: Kaycee Ascencio RDCS Pat. Stat.:Inpatient Room: [facility] Study Status:Final Echo Event ID:[id number] Order ID: [id number] Reason for Study:Myocardial Ischemia / Infarction - acute ches pain with suspected CT and nondiagnostic ECG with a resting ECHO [...] not well seen. MEASUREMENTS: 2D Parasternal Long Ranger Ao An 2.2 cm LVPWd 1.5 cm [...] myocardial injury. Specimen Performing Laboratory Plasma specimen [facility] DEPARTMENT OF PATHOLOGY AND [facility] MEDICINE [address] [place] [address] * Partial thromboplastin time, activated (10/04/2017 2:22 PM) Only the most recent of 6 results within the time period is included. Component Value Ref Range PTT 23.3 23.0 - 36.0 sec Comment: PTT therapeutic range for unfractionated heparin is 61.0-112.0 seconds which corresponds to Anti-Xa 0.3-0.7 U/ml. Specimen Performing Laboratory Blood [facility] DEPARTMENT OF PATHOLOGY AND [address] [address] * Prothrombin time with INR (10/04/2017 2:22 [...] vein thrombosis/pulmonary embolism. Specimen Performing Laboratory Blood [facility] DEPARTMENT OF PATHOLOGY AND GENOMIC MEDICINE [address] [place] [address] * Phosphorus level (10/04/2017 2:22 PM) Only the most recent of 13 results within the time period is included. Component Value Ref Range Phosphorus 2.3 (L) 2.4 - 4.5 mg/dL Specimen Performing Laboratory Plasma specimen [facility] DEPARTMENT OF PATHOLOGY AND GENOMIC MEDICINE [address] [place] [address] * ECG Pre/Post Op-Tomorrow (10/04/2017 11:53 AM) Component Value Ref Range Ventricular rate 78 Atrial rate 78 IA interval 144 QRSD interval 114 QT interval 400 QTC interval 456 P axis 1 44 QRS axis 1 143 T wave axis 110 EKG impression Normal sinus rhythm-Possible Left atrial enlargement-Right axis deviation-Abnormal ECG-In automated comparison with ECG of 29-SEP-2017 19:29,-QT has shortened- Specimen Performing Laboratory [facility] MUSE [address] [place] [address] * Cv electrophysiology procedure (10/03/2017 11:27 AM) Specimen Performing Laboratory [facility] [address] [place] [address] Narrative TITLE OF PROCEDURE: Single chamber defibrillator [...] a scalpel, cautery, and blunt dissection.Using the shfh-dyr-grbd technique and an introducer sheath, a defibrillation [...] right ventricular apical defibrillation lead is a [employer]ak [place]-G, model 0296, serial #[id number].Measured R-wave 10.1 mV, pacing threshold 0.8 V, current 0.8 mA, impedance 982 ohms. 2.The defibrillator is a [employer] Dynagen EL ICD model D150, serial #[id number]. 3.Ventricular fibrillation was induced and the patient [...] period is included. Specimen Performing Laboratory [facility] [address] [place] [address] Narrative Vascular Ultrasound Laboratory Lower Extremity Venous Report [address]Name:Beatris ISAAC.ID:[id number] St.Date: 10/02/2017 Refer.MD:MARCOS NEUMANN MD Exam Time: 5:20:00 PMStudy Type:LE Venous DOBAge:1960,56YSex: MALE Sonogrphr: [place], SAVANNA Pat. Stat.:Inpatient Room:A9 0938 A TapeVol: FORTUNATO CPT - 4: 57659 Echo Event ID:[id number] Order ID:[id number] Reason for Study:Evaluate for DVT. History of [...] Vascular Ultrasound Laboratory Lower Extremity Venous Report [address] [place] [address] Pat.Name: SAM ISAAC.ID: [id number] .Date: 10/02/2017 Refer.MD: MARCOS NEUMANN MD Exam Time: 5:20:00 PM Study Type:LE Venous Age: 2 1960,56Y Sex: MALE Sonogrphr: [place]ION [place], SAVANNA Pat. Stat.:Inpatient Room: A9 0938 A Tape Vol: FORTUNATO CPT - 4: 84582 Echo Event ID:[id number] Order ID: [id number] Reason for Study:Evaluate for DVT. History of [...] 4:21 PM) Specimen Performing Laboratory [facility] [address] [place] [address] Narrative Echocardiography Report [address]Name:Beatris ISAAC.ID:[id number] .Date: 10/02/2017 Refer.MD:MARCOS NEUMANN MD Exam Time: 4:15:00 PMStudy Type:Routine Echo Height:70inWeight:280lb BSA: 2.41 m2 DOBAge:1960 ,56Y Sex: MALEBP: 137/72 HR:73 bpmSonogrphr: Kaycee Ascencio RDCS Pat. Stat.:Inpatient Room:[facility] Study Status:Final Echo Event ID:[id number] Order ID:[id number] Reason for Study:HF - Re-eval of known [...] RAPof 10 mmHg. MEASUREMENTS: 2D Parasternal Long Ranger LVOT 2.2 cmLA Ds 4.4 cm LVIDd6.6 cmIndex 2.7 cm/m Ao An2.4 cm LVIDs5.8 cmAo Rtd 3 cm Index1.3 cm/m LV%fs 12.1 % LV Vomf717.4 g(122-174) IVSd 1.4 cmLVM Index 187.7 g/m2 [...] Radiology Results In - 10/02/2017 6:55 PM TERRITORY REPRESENTATIVE Echocardiography Report [address] [place] [address] Pat.Name: SAM ISAAC Sadaf.ID: [id number] .Date: 10/02/2017 Refer.MD: MARCOS NEUMANN MD Exam Time: 4:15:00 PM Study Type:Routine Echo Height: 70in Weight: 280lb BSA: 2.41 m2 Age: 2 1960,56Y Sex: MALE BP: 137/72 HR: 73 bpm Sonogrphr: Kaycee Ascencio RDCS Pat. Stat.:Inpatient Room: [facility] Study Status:Final Echo Event ID:[id number] Order ID: [id number] Reason for Study:HF - Re-eval of known [...] of 10 mmHg. MEASUREMENTS: 2D Parasternal Long Ranger LVOT 2.2 cm LA Ds 4.4 cm [...] - 100 % Specimen Performing Laboratory Blood [facility] DEPARTMENT OF PATHOLOGY AND GENOMIC MEDICINE [address] [place] [address] * Urine drugs of abuse screen (09/30/2017 [...] medical purposes only. Specimen Performing Laboratory Urine [facility] DEPARTMENT OF PATHOLOGY AND GENOMIC MEDICINE [address] [place] [address] * Urinalysis, automated with microscopy (09/30/2017 4:00 [...] None seen UA Specimen Performing Laboratory Urine [facility] DEPARTMENT OF PATHOLOGY AND GENOMIC MEDICINE [address] [place] [address] * Respiratory pathogen panel (09/30/2017 3:22 PM) [...] Specimen Performing Laboratory Nares - Not specified [facility] DEPARTMENT OF PATHOLOGY AND GENOMIC MEDICINE [address] [place] [address] * Hemoglobin A1c (09/30/2017 1:17 PM) Only [...] type 1 diabetes. Specimen Performing Laboratory Blood [facility] DEPARTMENT OF PATHOLOGY AND GENOMIC MEDICINE [address] [place] [address] * CRITICAL CARE (09/30/2017 12:25 AM) Narrative [...] of the following conditions:Cardiac failure, circulatory failure, HOST/HOSTESS GROUND failure or compromise, dehydration, hepatic failure, metabolic [...] 308 U/L Specimen Performing Laboratory Plasma specimen [facility] DEPARTMENT OF PATHOLOGY AND GENOMIC MEDICINE [address] [place] [address] * Comprehensive metabolic panel (09/29/2017 9:56 PM) [...] 1.2 mg/dL Specimen Performing Laboratory Plasma specimen [facility] DEPARTMENT OF PATHOLOGY AND GENOMIC MEDICINE [address] [place] [address] * CRITICAL CARE (08/31/2017 10:46 AM) Gabriel [...] 7.0 mg/dL Specimen Performing Laboratory Plasma specimen [facility] DEPARTMENT OF PATHOLOGY AND GENOMIC MEDICINE [address] [place] [address] * Urine eosinophils (08/08/2017 12:24 PM) Only the most recent of 2 results within the time period is included. Component Value Ref Range Eosinophils, urine NONE Specimen Performing Laboratory Urine [facility] DEPARTMENT OF PATHOLOGY AND GENOMIC MEDICINE [address] [place] [address] * Renin activity (08/08/2017 12:24 PM) Component Value Ref Range Renin activity 31.4 Comment: Specimen diluted and results confirmed. INTERPRETIVE INFORMATION: Renin Activity Adult, Normal sodium diet: Supine ................. 0.2-1.6 ng/mL/hr Upright ................ 0.5-4.0 ng/mL/hr Children, Normal sodium diet, Supine: [place] (1-7 days) ..... 2.0-35.0 ng/mL/hr Cord blood [...] angiotensinogen is decreased. See Compliance Statement D: [email or web address] Performed by [facility], [address] [place] [id number] [email or web address], Abhijit Howell MD - Lab. Director Specimen Performing Laboratory Blood [facility] [address] [place] [address] * Aldosterone, serum (08/08/2017 12:24 PM) Component [...] reference intervals for this test in the [facility] [employer] [facility] Test Directory ([email or web address]). Performed by [facility], [address] [place] [address] [email or web address], Abhijit Howell MD - Lab. Director Specimen Performing Laboratory Serum [facility] [address] [place] [address] * Sodium level, urine, random (08/08/2017 12:24 PM) Only the most recent of 2 results within the time period is included. Component Value Ref Range Sodium, urine, random 110 mEq/L Specimen Performing Laboratory Urine [facility] DEPARTMENT OF PATHOLOGY AND GENOMIC MEDICINE [address] [place] [address] * Protein, urine, random (08/08/2017 12:24 PM) Only the most recent of 2 results within the time period is included. Component Value Ref Range Protein, urine random <4 mg/dL Specimen Performing Laboratory Urine [facility] DEPARTMENT OF PATHOLOGY AND GENOMIC MEDICINE [address] [place] [address] * Potassium, urine, random (08/08/2017 12:24 PM) Only the most recent of 2 results within the time period is included. Component Value Ref Range Potassium, urine, random 26.0 mEq/L Specimen Performing Laboratory Urine [facility] DEPARTMENT OF PATHOLOGY AND GENOMIC MEDICINE [address] [place] [address] * Osmolality, urine (08/08/2017 12:24 PM) Only the most recent of 2 results within the time period is included. Component Value Ref Range Osmolality, urine 350 50 - 1,400 mOsm/kg Specimen Performing Laboratory Urine [facility] DEPARTMENT OF PATHOLOGY AND GENOMIC MEDICINE [address] [place] [address] * Creatinine level, urine, random (08/08/2017 12:24 PM) Only the most recent of 2 results within the time period is included. Component Value Ref Range Creatinine, urine, random 37 mg/dL Specimen Performing Laboratory Urine [facility] PATHOLOGY [facility] [address] [place] [address] * Chloride level, urine, random (08/08/2017 12:24 PM) Only the most recent of 2 results within the time period is included. Component Value Ref Range Chloride, urine, random 105 mEq/L Specimen Performing Laboratory Urine [facility] DEPARTMENT PATHOLOGY AND GENOMIC MEDICINE [address] [place] [address] * Thyroid stimulating hormone (08/08/2017 12:24 PM) Component Value Ref Range TSH 5.53 (H) 0.27 - 4.20 uIU/mL Specimen Performing Laboratory Plasma specimen [facility] DEPARTMENT OF PATHOLOGY AND [address] [address] * Parathyroid hormone (08/08/2017 12:24 PM) Component Value Ref Range PTH 84 (H) 15 - 65 pg/mL Specimen Performing Laboratory Blood [facility] PATHOLOGY AND [address] [address] * Osmolality, serum (08/08/2017 12:24 PM) Component Value Ref Range Osmolality 301 (H) 275 - 295 mOsm/kg Specimen Performing Laboratory Blood [facility] PATHOLOGY [address] [address] * CBC hemogram (08/08/2017 4:15 AM) Only [...] 0.00 /100 WBC Specimen Performing Laboratory Blood [facility] PATHOLOGY AND [address] [address] * CT Abdomen Pelvis Wo Contrast (08/03/2017 8:26 PM) Only the most recent of 2 results within the time period is included. Specimen Performing Laboratory [facility] [address] [place], [place] [id number] Narrative EXAMINATION:CT ABDOMEN PELVIS WO CONTRAST CLINICAL [...] 4.There is hardware in the lumbar spine. [facility]-[id number] Procedure Note [facility], Radiology Results Incoming - 08/03/2017 8:58 PM [...] There is hardware in the lumbar spine. [facility]-[id number] * CRITICAL CARE (08/01/2017 8:54 AM) Narrative [...] Chest (07/31/2017 6:34 PM) Specimen Performing Laboratory [facility] [address] [place] [address] Narrative EXAMINATION:XR ABDOMEN ACUTE INC CHEST CLINICAL HISTORY: Bowel ileus COMPARISON:None. FINDINGS: Heart size is enlarged. There is vascular congestion with basal volume loss and fluid on each side. There are postoperative changes in the lower lumbar spine. There are also surgical clips in the right upper quadrant. Bowel gas pattern is nonspecific. IMPRESSION: As above [id number] Procedure Note Interface, Radiology Results Incoming - [...] gas pattern is nonspecific. IMPRESSION: As above [id number] * Ionized calcium (07/19/2017 1:20 AM) Only the most recent of 4 results within the time period is included. Component Value Ref Range pH 7.60 Ionized calcium 1.07 (L) 1.11 - 1.32 mmol/L Specimen Performing Laboratory Plasma specimen [facility] DEPARTMENT OF PATHOLOGY AND GENOMIC MEDICINE [address] [place] [address] * Hepatic function panel (07/19/2017 1:20 AM) [...] 50 U/L Specimen Performing Laboratory Plasma specimen [facility] DEPARTMENT OF PATHOLOGY AND GENOMIC MEDICINE [address] [place] [address] * XR Abdomen 1 Vw Portable (07/17/2017 3:06 PM) Specimen Performing Laboratory [facility] [address] [place] [address] Narrative EXAMINATION:XR ABDOMEN 1 VW PORTABLE CLINICAL HISTORY:Check feeding tube placement COMPARISON:None. IMPRESSION: There is a nonspecific bowel gas pattern. No free air is identified. Nasogastric tube terminates in the body the stomach Postoperative changes of lumbar spine The gallbladder has been removed [facility]-[id number] Procedure Note Interface, Radiology Results Incoming - 07/17/2017 4:02 PM CDT EXAMINATION: XR ABDOMEN 1 VW PORTABLE CLINICAL HISTORY: Check feeding tube placement COMPARISON: None. IMPRESSION: There is a nonspecific bowel gas pattern. No free air is identified. Nasogastric tube terminates in the body the stomach Postoperative changes of lumbar spine The gallbladder has been removed [facility]-[id number] * Surgical pathology request (07/17/2017 12:10 PM) Component Value Ref Range Surgical pathology report See link below for PDF Lab Report Specimen Performing Laboratory [facility] DEPARTMENT OF PATHOLOGY AND GENOMIC MEDICINE [address] [place] [address] * Ionized calcium, arterial (07/17/2017 10:10 AM) Component Value Ref Range Ionized calcium, arterial 0.88 (L)Comment: Specimen is slightly hemolyzed. 1.11 - 1.32 mmol/L Interpret results accordingly. Specimen Performing Laboratory Blood [facility] DEPARTMENT OF PATHOLOGY AND GENOMIC MEDICINE [address] [place] [address] * Lactic acid level (07/17/2017 10:10 AM) Component Value Ref Range Lactic acid 1.8 0.5 - 2.2 mmol/L Specimen Performing Laboratory Plasma specimen [facility] DEPARTMENT OF PATHOLOGY AND GENOMIC MEDICINE [address] [place], [place] [id number] * Type and screen (07/17/2017 4:30 AM) Component Value Ref Range ABO grouping O Rh type POS Antibody screen (gel) NEG Specimen Performing Laboratory Blood [facility] DEPARTMENT OF PATHOLOGY AND [facility] MEDICINE [address] [place] [address] * HCV qualitative by PCR (07/14/2017 4:00 AM) Component Value Ref Range HCV PCR result Detected (A) Not-Detected HCV RNA qualitative See link below for PDF Lab ReportComment: Specimen Performing Laboratory [facility] DEPARTMENT OF PATHOLOGY AND [address] [address] * Hepatitis C antibody (07/14/2017 4:00 AM) Component Value Ref Range Hepatitis C Ab Reactive (A) Non-reactive Comment: HCV antibody testing initially Reactive. Confirmation by HCV RNA PCR will be performed and reported separately when completed. Repeat HCV RNA PCR will not be performed if done within 30 days. Specimen Performing Laboratory Blood [facility] DEPARTMENT OF PATHOLOGY AND GENOMIC MEDICINE [address] [place] [address] * Hepatitis C virus quantitative by PCR (07/14/2017 4:00 AM) Component Value Ref Range Hepatitis C quantitative, 13,900,000 (A) Not-Detected IU/mL PCR Hepatitis C quantitative, See link below for PDF Lab ReportComment: Case PCR Number: [id number] Specimen Performing Laboratory [facility] [place]MENT [place] [address] * MRI CHOLANGIOGRAM W WO CONTRAST (07/13/2017 10:04 PM) Specimen [facility]forming [facility] [address] [place] [address] Narrative EXAMINATION:MRI CHOLANGIOGRAM W WO CONTRAST CLINICAL [...] No evidence of biliary dilatation or choledocholithiasis. [facility]-[id number] Procedure Note [facility], Radiology Results Incoming - 07/13/2017 10:56 PM [...] No evidence of biliary dilatation or choledocholithiasis. [facility]-[id number] * OR Hepatobiliary (HIDA Scan) (07/13/2017 3:07 PM) Specimen Performing Laboratory [address] [address] Narrative PROCEDURE:OR HEPATOBILIARY (HIDA SCAN) INDICATION:Abdominal pain. TECHNIQUE: The [...] obstruction. 2.The common bile duct is patent. [id number] Procedure Note Interface, Radiology Results [facility] [...] 2. The common bile duct is patent. [id number] * Lipase level (07/13/2017 4:00 AM) Component Value Ref Range Lipase 18 13 - 60 U/L Specimen Performing Laboratory Plasma specimen [facility] DEPARTMENT OF PATHOLOGY AND GENOMIC MEDICINE [address] [place] [address] * Amylase level (07/13/2017 4:00 AM) Component Value Ref Range Amylase 22 13 - 53 U/L Specimen Performing Laboratory Plasma specimen [facility] DEPARTMENT OF PATHOLOGY AND [facility] [address] [place] [address] * Lipid panel (07/13/2017 4:00 AM) Only [...] (>=200 mg/dL) Specimen Performing Laboratory Plasma specimen [facility] DEPARTMENT OF PATHOLOGY AND GENOMIC MEDICINE [address] [place] [address] * US Gallbladder (07/13/2017 12:54 AM) Specimen Performing Laboratory [address] [address] Narrative EXAMINATION:US GALLBLADDER CLINICAL HISTORY:Cholecystitis COMPARISON:None. FINDINGS: [...] Common bile duct sonographically within normal limits. [facility]-[id number] Procedure Note [facility], Radiology Results Incoming - 07/13/2017 1:02 AM [...] Common bile duct sonographically within normal limits. [facility]-[id number] * ECG ED Preliminary Interpretation - NOT AN ORDER (07/12/2017 10:18 PM) Gabriel Ibarra MD 07/12/2017 10:18 PM ECG ED Preliminary Interpretation - Not an Order Performed by: SNADRA BANDA Authorized by: CHA IBARRA ECG reviewed by ED Physician in the absence of a sheet fed printer: yes Previous ECG: Previous ECG:Compared to current [...] ECG report.-Electronically Signed By Mecca BECKFORD, Carlton ([id number]), food expeditor Mayr Gross ([id number]) on 05/06/2017 6:03:03 AM Specimen Performing Laboratory [facility] MUSE [address] [place] [address] * Nm myocardial perfusion (05/05/2017 8:17 AM) Specimen Performing Laboratory [facility] [address] [place] [address] Narrative Nuclear Cardiology and Cardiac CT [address] [address] Myocardial Perfusion Imaging Report Stress ECG tracings are available in MUSE, EPIC and [employer] Web All ECG interpretations are included in this report Pat.Name:Beatris ISAAC.ID:[id number] St.Date: 05/05/2017Refer.MD:MARCOS PRIDE MD Exam Time: 8:17:00 AM Study Type:Myocardial Perfusion Imaging Height:70inWeight:285lb BSA: 2.43 m2 DOBAge:1960 ,56Y Sex: MALEBP: 142/86 HR:73 bpmNuclear Tech:MONAE Rebolledo Pat. Stat.:Inpatient Room:[facility] Nuclear Event ID:[id number] Order ID:[id number] Reason for Study:Chest pain, unspecified* History / Clinical:Congestive heart failure, Coronary artery disease, Hyperlipidemia, Hypertension, Obesity Procedures:Two Day Stress / Rest Race:-Guinean Risk Factors:Known Coronary Atherosclerosis, Hyperlipidemia, Hypertension, Obesity [...] AM CDT Nuclear Cardiology and Cardiac CT [address] [place] [address] Myocardial Perfusion Imaging Report Stress ECG tracings are available in MUSE, [employer] and CV Web All ECG interpretations are included in this report Pat.Name: SAM ISAAC Pat.ID: [id number] St.Date: 05/05/2017 Refer.MD: MARCOS PRIDE MD Exam Time: 8:17:00 AM Study Type:Myocardial Perfusion Imaging Height: 70in Weight: 285lb BSA: 2.43 m2 Age: 2 1960,56Y Sex: MALE BP: 142/86 HR: 73 bpm Nuclear Tech:MONAE Rebolledo Pat. Stat.:Inpatient Room: [facility] Nuclear Event ID:[id number] Order ID: [id number] Reason for Study:Chest pain, unspecified* History / Clinical:Congestive heart failure, Coronary artery disease, Hyperlipidemia, Hypertension, Obesity Procedures:Two Day Stress / Rest Race: -Guine[place] Risk Factors:Known Coronary Atherosclerosis, Hyperlipidemia, Hypertension, Obesity [...] 4:57 PM) Specimen Performing Laboratory [facility] [address] [place] [address] Narrative Examination:XR CHEST 2 VW Clinical history:"R06.02 Shortness of breath, r06.02" Comparison:04/15/2017 IMPRESSION: There is improved aeration of both lung bases.Faint left anterior, basilar pleural thickening versus a small loculated left pleural effusion cannot be excluded.Otherwise, there are no apparent infiltrates or pneumothoraces.The borderline prominent cardiomediastinal silhouette and the imaged bones are stable in appearance. [id number] Procedure Note Hm Interface, Radiology Results Incoming [...] the imaged bones are stable in appearance. [id number] * CT Angiogram Pe Chest (04/15/2017 5:32 AM) Specimen Performing Laboratory [facility] [address] [place] [address] Narrative EXAMINATION:CT ANGIOGRAM PE CHEST CLINICAL HISTORY: [...] AM and acknowledged understanding of the findings. [id number] Procedure Note [facility], Radiology Results Incoming - 04/15/2017 6:05 AM [...] AM and acknowledged understanding of the findings. [facility]-[id number] after 03/19/2017 Insurance Payer Benefit Subscriber ID Type Phone Address Plan / Group [employer] MEDICAID [employer] xxxxxxxxx O COMM STAR+ ALEJANDRA Home: [address] [place], [place] [phone] [address]
[2018-03-20] MEDS: LEVOFLOXACIN 500MG/D5W 100ML 100 ML IV SCH (21:45)
[2018-03-20] MEDS: INSULIN REGULAR, HUMAN 100 UNIT/1 ML 3ML VIAL SQ SCH (21:45)
[2018-03-20] MEDS ORDERED: METRONIDAZOLE 500MG/NS 100ML 100 ML IV SCH (22:00)
[2018-03-20 22:25] VITALS: BP 127/65
[2018-03-20] MEDS ORDERED: SODIUM CHLORIDE 0.9% 250ML 250 ML ONE (22:39)
[2018-03-20] MEDS: METRONIDAZOLE 500MG/NS 100ML 100 ML IV SCH (23:53)
[2018-03-21] VITALS (10 sets, daily range): BP systolic 108–125; BP diastolic 56–70
[2018-03-21] MEDS: ENOXAPARIN SODIUM INJ 100 MG/ML SYR SC SCH ×2 (06:03→17:02)
[2018-03-21] MEDS: METRONIDAZOLE 500MG/NS 100ML 100 ML IV SCH ×4 (06:03→23:33)
[2018-03-21 07:21] LABS: BASOPHILS % 0.3 % (0.0-1.0); EOSINOPHILS # (AUTO) 0.3 (0.0-0.4); EOSINOPHILS % 3.9 % (0.0-6.0); HEMATOCRIT 37.2 % (38.2-49.6); HEMOGLOBIN 11.3 g/dL (14.0-18.0); LYMPHOCYTES # (AUTO) 2.6 (1.0-3.2); LYMPHOCYTES % 36.1 % (18.0-39.1); MEAN CORPUSCULAR HGB CONC 30.4 g/dL (31-35); MEAN CORPUSCULAR VOLUME 88.8 fL (81-99); MONOCYTES # (AUTO) 0.7 (0.2-0.8); MONOCYTES % 10.2 % (4.4-11.3); NEUTROPHILS # (AUTO) 3.5 (2.1-6.9); NEUTROPHILS % 49.1 % (38.7-80.0); PLATELET COUNT 148 x10e3/uL (140-360); RED BLOOD COUNT 4.19 x10e6/uL (4.3-5.7); RED CELL DISTRIBUTION WIDTH 13.4 % (11.7-14.4)
[2018-03-21] MEDS: INSULIN REGULAR, HUMAN 100 UNIT/1 ML 3ML VIAL SQ SCH ×4 (07:30→20:39)
[2018-03-21] MEDS ORDERED: BISACODYL 5 MG TAB EC PO PRN (07:45)
[2018-03-21 07:57] LABS: ALANINE AMINOTRANSFERASE 29 IU/L (0-55); ALBUMIN 2.7 g/dL (3.5-5.0); ALBUMIN/GLOBULIN RATIO 0.7 (0.8-2.0); ALKALINE PHOSPHATASE 49 IU/L (40-150); ANION GAP 12.8 mmol/L (8-16); BLOOD UREA NITROGEN 9 mg/dL (7-26); BUN/CREATININE RATIO 7 (6-25); CALCIUM 8.7 mg/dL (8.4-10.2); CARBON DIOXIDE 34 mmol/L (22-29); CHLORIDE 99 mmol/L (98-107); EST GLOMERULAR FILTRATION RATE > 60 ML/MIN (60-); GLUCOSE 80 mg/dL (74-118); POTASSIUM 3.8 mmol/L (3.5-5.1); SODIUM 142 mmol/L (136-145)
--- NOTE | 2018-03-21 08:28 | History and Physical ---
PRIMARY CARE PHYSICIAN: Dr. Cristino Bryant CHIEF COMPLAINT: Shortness of breath, chest pain and cough with productive yellow phlegm for the past 4 days. HISTORY OF PRESENT ILLNESS: This is a 57-year-old man recently discharged from the hospital about a week or 2 ago with the diagnosis of acute exacerbation of COPD. Now, the patient developing shortness of breath and productive cough with yellow phlegm. Came to the hospital. Here he was found to have healthcare-associated pneumonia and acute pulmonary embolism in the left lung. He was admitted for further evaluation and management. The patient denies any recent travel. PAST MEDICAL HISTORY: COPD, morbid obesity, obstructive sleep apnea, chronic systolic congestive heart failure, left ventricular ejection fraction 25%, status post AICD placement, diabetes mellitus, type 2. PAST SURGICAL HISTORY: ICD placement, cholecystectomy, back surgery. ALLERGIES: PER ELECTRONIC MEDICAL RECORD. FAMILY HISTORY/SOCIAL HISTORY: Patient is . He has no children. No alcohol or illicits. He is disabled and does not work. MEDICATIONS: Per electronic medical record. REVIEW OF SYSTEMS: Denies any dizziness, fever, chills, or sweats. PHYSICAL EXAMINATION VITAL SIGNS: Have been reviewed. GENERAL: A tired-appearing man resting in bed. HEENT: Anicteric. Pupils respond to light. No oral lesions. CARDIOVASCULAR: Normal S1 and S2. LUNGS: He has crackles throughout the lung bucio. He has mildly coarse breath sounds and reduced breath sounds. ABDOMEN: Large abdomen. Nontender. EXTREMITIES: No edema or calf tenderness. NEUROLOGICAL: Alert and oriented times 3. Moving all extremities. SKIN: Dry. PSYCHIATRIC: Flat affect. LABS: Reviewed. MEDICATIONS: Reviewed. ASSESSMENT AND PLAN: This is a 57-year-old man with: 1. Sepsis: Will continue antibiotics. Rehydrate as needed. 2. Left lung pneumonia which is healthcare-associated pneumonia: Treat with Levaquin and follow up cultures of sputum and blood. 3. Diabetes mellitus, type 2: Obtain hemoglobin A1c and lipid panel. Reduce insulin regimen to nighttime only as his sugars are somewhat low. 4. Left pulmonary embolism which is acute: Will continue anticoagulants. 5. Chronic systolic congestive heart failure: Will consult his integration manager, Dr. Fontana. 6. Normocytic anemia: Will follow. 7. Diverticulosis: High fiber diet. 8. Chronic obstructive pulmonary disease: Oxygen support as needed. Nebs as needed. 9. Physical deconditioning: Physical therapy consultation. 10. Disposition: Will monitor closely. Monitor for any signs of bleeding. Treat with antibiotics. Follow up cultures. Job#: [id number] RI
[2018-03-21] MEDS ORDERED: INSULIN DETEMIR LEVEMIR SQ SCH ×2 (09:00)
[2018-03-21] MEDS: CARVEDILOL 12.5 MG TAB PO SCH ×2 (09:10→17:01)
[2018-03-21] MEDS: ASPIRIN 81 MG CHEW TAB PO SCH (09:10)
[2018-03-21] MEDS: HYDRALAZINE HCL 25 MG TAB PO SCH ×3 (09:10→20:40)
[2018-03-21] MEDS: FUROSEMIDE 40 MG TAB PO SCH (09:10)
[2018-03-21] MEDS: PANTOPRAZOLE SOD 40 MG TABEC PO SCH (09:10)
--- NOTE | 2018-03-21 11:17 | Consultation ---
DATE OF CONSULTATION: March 20, 2018 CARDIOLOGY CONSULTATION REASON FOR CONSULT: Chronic systolic CHF. REQUESTING PHYSICIAN: Dr. Kevin Bee HISTORY OF PRESENT ILLNESS: This is 57-year-old male that presented with shortness of breath. According to the and the patient, he was at the hospital last week, Sunday the , due to a fall, and he was discharged home with some narcotics. The also stated Sunday morning he had another fall in the bathroom. After that, within 2 to 3 days, he started having severe shortness of breath, and she brought him back to the emergency room for evaluation. He has a history of systolic CHF with an ICD placement. He also has severe COPD and uses home oxygen. In the ER, he was found to have left lobe pneumonia and acute pulmonary emboli, and he was admitted for further evaluation. He denied any chest pain, any palpitations, any dizziness, any diaphoresis or headache. BNP 386. PAST MEDICAL HISTORY: Schizophrenia, CKD, GERD, asthma, obesity, chronic systolic CHF with EF 25% to 30%, nonischemic cardiomyopathy, hypertension, diabetes, hyperlipidemia, DVT to bilateral upper extremities. PAST SURGICAL HISTORY: Cholecystectomy, ICD placement and back surgery. FAMILY HISTORY: Positive for CAD. SOCIAL HISTORY: He quit smoking. He lives at home with his and uses home oxygen. MEDICATIONS: See med list. ALLERGIES: HE IS NOT ALLERGIC TO ANY MEDICATION. REVIEW OF SYSTEMS: Negative except those mentioned above. Positive for PE in the left lung, status post fall and shortness of breath. PHYSICAL EXAMINATION VITAL SIGNS: Temperature 98, heart rate 89, blood pressure 115/68, respirations 18, oxygen saturation 99% on 2 L nasal cannula. GENERAL: He is morbidly obese. Awake, alert and oriented times 3. HEENT: Mucous membranes are moist. NECK: Supple. LUNGS: Bilateral with decreased breath sounds. CARDIOVASCULAR: S1 and S2 present. ABDOMEN: Soft. NEUROLOGIC: Intact. EXTREMITIES: No edema. LABS: Sodium 142, potassium 3.8, chloride 99, CO2 34, BUN 9, creatinine 1.30, glucose 80. White blood cells 7.15, hemoglobin 11.3, hematocrit 37.2, platelets 148. PT 12.4, PTT 32.0, INR 1.00. IMPRESSION 1. Chronic systolic congestive heart failure. 2. Coronary artery disease with implantable cardioverter-defibrillator. 3. Acute pulmonary emboli on the left lung. 4. Diabetes. 5. Pneumonia. 6. History of chronic obstructive pulmonary disease, home oxygen dependent. 7. Renal insufficiency. 8. Diverticulosis. ASSESSMENT AND PLAN: He recently had an echocardiogram in October 2017 with severely impaired systolic function, EF 25% to 30%. Will continue the Lovenox. Will bridge with p.o. anticoagulation within 1 to 2 days. Will continue all his home medications. Thank you for this consultation. Dictated by Suzy Petty NP. Job#: [id number]
[2018-03-21] MEDS ORDERED: SODIUM CHLORIDE 0.9% 250ML 250 ML ONE (12:06)
[2018-03-21] MEDS: GUAIFENESIN 600MG/DEXTROMETHORPHAN 30MG TABSR PO SCH ×3 (12:09→23:33)
[2018-03-21] MEDS: LEVOFLOXACIN 500MG/D5W 100ML 100 ML IV SCH (20:39)
[2018-03-21] MEDS: INSULIN DETEMIR 100 UNIT/ML PEN SQ SCH (20:39)
[2018-03-21] MEDS: QUETIAPINE FUMARATE 100 MG TAB PO SCH (20:40)
[2018-03-21] MEDS: ATORVASTATIN 10 MG TAB PO SCH (20:40)
[2018-03-22] VITALS (7 sets, daily range): BP systolic 120–139; BP diastolic 58–82
[2018-03-22] MEDS: ENOXAPARIN SODIUM INJ 100 MG/ML SYR SC SCH (05:50)
[2018-03-22] MEDS: METRONIDAZOLE 500MG/NS 100ML 100 ML IV SCH ×4 (05:50→23:26)
[2018-03-22] MEDS: GUAIFENESIN 600MG/DEXTROMETHORPHAN 30MG TABSR PO SCH ×4 (05:50→23:26)
[2018-03-22] MEDS: INSULIN REGULAR, HUMAN 100 UNIT/1 ML 3ML VIAL SQ SCH ×4 (07:30→20:34)
[2018-03-22] MEDS: PANTOPRAZOLE SOD 40 MG TABEC PO SCH (07:35)
[2018-03-22] MEDS: HYDRALAZINE HCL 25 MG TAB PO SCH ×3 (08:12→20:33)
[2018-03-22] MEDS: FUROSEMIDE 40 MG TAB PO SCH (08:12)
[2018-03-22] MEDS: APIXABAN 5 MG TABLET PO SCH ×2 (08:12→16:22)
[2018-03-22] MEDS: ASPIRIN 81 MG CHEW TAB PO SCH (08:12)
[2018-03-22] MEDS: CARVEDILOL 12.5 MG TAB PO SCH ×2 (08:12→16:22)
[2018-03-22] MEDS ORDERED: APIXAB 2.5 MG TABLET PO SCH (09:00)
[2018-03-22] MEDS ORDERED: HYDRALAZINE HCL 20 MG/ML VIAL IV PRN (13:45)
[2018-03-22] MEDS: ALBUTEROL/IPRATROPIUM 3 ML NEB NEB SCH ×4 (14:00→23:20)
[2018-03-22] MEDS: FAMOTIDINE 20 MG/2 ML VIAL IV SCH (16:20)
[2018-03-22] MEDS ORDERED: GUAIFENESIN 600 MG TAB PO SCH (18:00)
[2018-03-22] MEDS ORDERED: ALBUTEROL/IPRATROPIUM 3 ML NEB NEB SCH (19:00)
[2018-03-22] MEDS: LEVOFLOXACIN 500MG/D5W 100ML 100 ML IV SCH (20:32)
[2018-03-22] MEDS: QUETIAPINE FUMARATE 100 MG TAB PO SCH (20:33)
[2018-03-22] MEDS: ATORVASTATIN 10 MG TAB PO SCH (20:33)
[2018-03-22] MEDS: INSULIN DETEMIR 100 UNIT/ML PEN SQ SCH (20:34)
[2018-03-23] VITALS: BP 137/67
[2018-03-23] MEDS: ALBUTEROL/IPRATROPIUM 3 ML NEB NEB SCH ×6 (03:10→22:53)
[2018-03-23 04:00] VITALS: BP 146/84
[2018-03-23] MEDS: GUAIFENESIN 600MG/DEXTROMETHORPHAN 30MG TABSR PO SCH ×4 (05:38→23:41)
[2018-03-23] MEDS: METRONIDAZOLE 500MG/NS 100ML 100 ML IV SCH ×4 (05:38→23:41)
[2018-03-23 07:25] LABS: BASOPHILS % 0.4 % (0.0-1.0); EOSINOPHILS # (AUTO) 0.2 (0.0-0.4); EOSINOPHILS % 4.1 % (0.0-6.0); HEMATOCRIT 37.2 % (38.2-49.6); HEMOGLOBIN 11.1 g/dL (14.0-18.0); LYMPHOCYTES # (AUTO) 1.7 (1.0-3.2); LYMPHOCYTES % 36.2 % (18.0-39.1); MEAN CORPUSCULAR HEMOGLOBIN 26.6 pg (28-32); MEAN CORPUSCULAR HGB CONC 29.8 g/dL (31-35); MONOCYTES # (AUTO) 0.4 (0.2-0.8); MONOCYTES % 9.2 % (4.4-11.3); NEUTROPHILS # (AUTO) 2.3 (2.1-6.9); NEUTROPHILS % 49.2 % (38.7-80.0); PLATELET COUNT 157 x10e3/uL (140-360); RED BLOOD COUNT 4.18 x10e6/uL (4.3-5.7); RED CELL DISTRIBUTION WIDTH 13.3 % (11.7-14.4)
[2018-03-23] MEDS: INSULIN REGULAR, HUMAN 100 UNIT/1 ML 3ML VIAL SQ SCH ×4 (07:40→20:22)
[2018-03-23 07:57] LABS: ANION GAP 10.6 mmol/L (8-16); BLOOD UREA NITROGEN 7 mg/dL (7-26); BUN/CREATININE RATIO 6 (6-25); CALCIUM 8.8 mg/dL (8.4-10.2); CARBON DIOXIDE 34 mmol/L (22-29); CHLORIDE 98 mmol/L (98-107); CREATININE, SERUM 1.15 mg/dL (0.72-1.25); EST GLOMERULAR FILTRATION RATE > 60 ML/MIN (60-); GLUCOSE 187 mg/dL (74-118); MAGNESIUM 1.6 MG/DL (1.3-2.1); POTASSIUM 3.6 mmol/L (3.5-5.1); SODIUM 139 mmol/L (136-145)
[2018-03-23 08:00] VITALS: BP 137/64
[2018-03-23] MEDS: ASPIRIN 81 MG CHEW TAB PO SCH (08:18)
[2018-03-23] MEDS: FUROSEMIDE 40 MG TAB PO SCH (08:18)
[2018-03-23] MEDS: APIXABAN 5 MG TABLET PO SCH ×2 (08:18→16:55)
[2018-03-23] MEDS: HYDRALAZINE HCL 25 MG TAB PO SCH ×3 (08:18→20:21)
[2018-03-23] MEDS: CARVEDILOL 12.5 MG TAB PO SCH ×2 (08:18→16:55)
[2018-03-23] MEDS: FAMOTIDINE 20 MG/2 ML VIAL IV SCH ×2 (08:18→16:55)
[2018-03-23 12:00] VITALS: BP 142/66
[2018-03-23 16:00] VITALS: BP 148/88
[2018-03-23] MEDS ORDERED: SODIUM CHLORIDE 0.9% 500ML 500 ML ONE (19:32)
[2018-03-23] MEDS: LEVOFLOXACIN 500MG/D5W 100ML 100 ML IV SCH (19:47)
[2018-03-23 20:00] VITALS: BP 142/87
[2018-03-23] MEDS: ATORVASTATIN 10 MG TAB PO SCH (20:21)
[2018-03-23] MEDS: QUETIAPINE FUMARATE 100 MG TAB PO SCH (20:21)
[2018-03-23] MEDS: INSULIN DETEMIR 100 UNIT/ML PEN SQ SCH (20:23)
[2018-03-24] VITALS (7 sets, daily range): BP systolic 144–166; BP diastolic 86–96
[2018-03-24] MEDS: GUAIFENESIN 600MG/DEXTROMETHORPHAN 30MG TABSR PO SCH ×4 (05:34→23:41)
[2018-03-24] MEDS: METRONIDAZOLE 500MG/NS 100ML 100 ML IV SCH ×4 (05:34→23:41)
[2018-03-24] MEDS: ALBUTEROL/IPRATROPIUM 3 ML NEB NEB SCH ×5 (07:25→23:02)
[2018-03-24 07:37] LABS: BASOPHILS % 0.7 % (0.0-1.0); EOSINOPHILS # (AUTO) 0.2 (0.0-0.4); EOSINOPHILS % 3.7 % (0.0-6.0); HEMATOCRIT 37.1 % (38.2-49.6); HEMOGLOBIN 11.1 g/dL (14.0-18.0); LYMPHOCYTES # (AUTO) 1.9 (1.0-3.2); LYMPHOCYTES % 32.3 % (18.0-39.1); MEAN CORPUSCULAR HEMOGLOBIN 26.4 pg (28-32); MEAN CORPUSCULAR HGB CONC 29.9 g/dL (31-35); MEAN CORPUSCULAR VOLUME 88.3 fL (81-99); MONOCYTES # (AUTO) 0.5 (0.2-0.8); MONOCYTES % 8.4 % (4.4-11.3); NEUTROPHILS # (AUTO) 3.1 (2.1-6.9); NEUTROPHILS % 54.4 % (38.7-80.0); PLATELET COUNT 186 x10e3/uL (140-360); RED CELL DISTRIBUTION WIDTH 13.3 % (11.7-14.4)
[2018-03-24] MEDS: INSULIN REGULAR, HUMAN 100 UNIT/1 ML 3ML VIAL SQ SCH ×4 (07:40→21:00)
[2018-03-24] MEDS: HYDRALAZINE HCL 25 MG TAB PO SCH ×3 (08:20→21:38)
[2018-03-24] MEDS: ASPIRIN 81 MG CHEW TAB PO SCH (08:20)
[2018-03-24] MEDS: FUROSEMIDE 40 MG TAB PO SCH (08:20)
[2018-03-24] MEDS: CARVEDILOL 12.5 MG TAB PO SCH ×2 (08:20→16:36)
[2018-03-24] MEDS: APIXABAN 5 MG TABLET PO SCH ×2 (08:20→16:36)
[2018-03-24] MEDS: FAMOTIDINE 20 MG/2 ML VIAL IV SCH ×2 (08:20→16:36)
[2018-03-24 08:22] LABS: ANION GAP 10.6 mmol/L (8-16); BLOOD UREA NITROGEN 8 mg/dL (7-26); BUN/CREATININE RATIO 7 (6-25); CARBON DIOXIDE 34 mmol/L (22-29); CHLORIDE 101 mmol/L (98-107); CREATININE, SERUM 1.16 mg/dL (0.72-1.25); EST GLOMERULAR FILTRATION RATE > 60 ML/MIN (60-); GLUCOSE 133 mg/dL (74-118); MAGNESIUM 1.6 MG/DL (1.3-2.1); POTASSIUM 3.6 mmol/L (3.5-5.1); SODIUM 142 mmol/L (136-145)
[2018-03-24] MEDS: INSULIN DETEMIR 100 UNIT/ML PEN SQ SCH (21:00)
[2018-03-24] MEDS: ATORVASTATIN 10 MG TAB PO SCH (21:37)
[2018-03-24] MEDS: MONTELUKAST SODIUM 10 MG TAB PO SCH (21:37)
[2018-03-24] MEDS: QUETIAPINE FUMARATE 100 MG TAB PO SCH (21:37)
[2018-03-24] MEDS: LEVOFLOXACIN 500MG/D5W 100ML 100 ML IV SCH (21:38)
[2018-03-25] VITALS (9 sets, daily range): BP systolic 132–168; BP diastolic 57–92
[2018-03-25] MEDS: ALBUTEROL/IPRATROPIUM 3 ML NEB NEB SCH ×6 (03:35→22:57)
[2018-03-25] MEDS: METRONIDAZOLE 500MG/NS 100ML 100 ML IV SCH ×2 (05:24→11:50)
[2018-03-25] MEDS: GUAIFENESIN 600MG/DEXTROMETHORPHAN 30MG TABSR PO SCH ×3 (05:24→17:00)
[2018-03-25 07:20] LABS: BASOPHILS % 0.6 % (0.0-1.0); EOSINOPHILS # (AUTO) 0.2 (0.0-0.4); EOSINOPHILS % 4.1 % (0.0-6.0); HEMATOCRIT 36.1 % (38.2-49.6); HEMOGLOBIN 10.7 g/dL (14.0-18.0); LYMPHOCYTES # (AUTO) 1.8 (1.0-3.2); LYMPHOCYTES % 33.7 % (18.0-39.1); MEAN CORPUSCULAR HEMOGLOBIN 26.4 pg (28-32); MEAN CORPUSCULAR HGB CONC 29.6 g/dL (31-35); MEAN CORPUSCULAR VOLUME 89.1 fL (81-99); MONOCYTES # (AUTO) 0.5 (0.2-0.8); NEUTROPHILS # (AUTO) 2.8 (2.1-6.9); NEUTROPHILS % 51.9 % (38.7-80.0); PLATELET COUNT 207 x10e3/uL (140-360); RED BLOOD COUNT 4.05 x10e6/uL (4.3-5.7); RED CELL DISTRIBUTION WIDTH 13.3 % (11.7-14.4)
[2018-03-25] MEDS: INSULIN REGULAR, HUMAN 100 UNIT/1 ML 3ML VIAL SQ SCH ×4 (07:30→21:26)
[2018-03-25 07:53] LABS: ANION GAP 10.6 mmol/L (8-16); BLOOD UREA NITROGEN 7 mg/dL (7-26); BUN/CREATININE RATIO 6 (6-25); CALCIUM 8.9 mg/dL (8.4-10.2); CARBON DIOXIDE 36 mmol/L (22-29); CHLORIDE 101 mmol/L (98-107); CREATININE, SERUM 1.19 mg/dL (0.72-1.25); EST GLOMERULAR FILTRATION RATE > 60 ML/MIN (60-); GLUCOSE 107 mg/dL (74-118); MAGNESIUM 1.5 MG/DL (1.3-2.1); POTASSIUM 3.6 mmol/L (3.5-5.1); SODIUM 144 mmol/L (136-145)
[2018-03-25] MEDS: HYDRALAZINE HCL 25 MG TAB PO SCH ×3 (09:14→21:25)
[2018-03-25] MEDS: FAMOTIDINE 20 MG/2 ML VIAL IV SCH ×2 (09:14→17:00)
[2018-03-25] MEDS: ASPIRIN 81 MG CHEW TAB PO SCH (09:14)
[2018-03-25] MEDS: CARVEDILOL 12.5 MG TAB PO SCH ×2 (09:14→17:00)
[2018-03-25] MEDS: FUROSEMIDE 40 MG TAB PO SCH (09:14)
[2018-03-25] MEDS: APIXABAN 5 MG TABLET PO SCH ×2 (09:14→17:00)
[2018-03-25] MEDS: VANCOMYCIN 1GM/NS 250 ML 250 ML IV SCH (12:26)
[2018-03-25] MEDS: ACETAMINOPHEN 325 MG TAB PO PRN (17:11)
[2018-03-25] MEDS: INSULIN DETEMIR 100 UNIT/ML PEN SQ SCH (21:26)
[2018-03-25] MEDS: QUETIAPINE FUMARATE 100 MG TAB PO SCH (21:26)
[2018-03-25] MEDS: ATORVASTATIN 10 MG TAB PO SCH (21:26)
[2018-03-25] MEDS: MONTELUKAST SODIUM 10 MG TAB PO SCH (21:26)
[2018-03-26] VITALS (8 sets, daily range): BP systolic 119–171; BP diastolic 57–91
[2018-03-26] MEDS: ALBUTEROL/IPRATROPIUM 3 ML NEB NEB SCH ×6 (03:07→23:37)
[2018-03-26] MEDS: GUAIFENESIN 600MG/DEXTROMETHORPHAN 30MG TABSR PO SCH ×4 (05:34→17:15)
[2018-03-26 07:20] LABS: BASOPHILS % 0.6 % (0.0-1.0); EOSINOPHILS # (AUTO) 0.2 (0.0-0.4); EOSINOPHILS % 3.9 % (0.0-6.0); HEMATOCRIT 38.1 % (38.2-49.6); HEMOGLOBIN 11.2 g/dL (14.0-18.0); LYMPHOCYTES # (AUTO) 1.9 (1.0-3.2); LYMPHOCYTES % 37.7 % (18.0-39.1); MEAN CORPUSCULAR HEMOGLOBIN 26.1 pg (28-32); MEAN CORPUSCULAR HGB CONC 29.4 g/dL (31-35); MEAN CORPUSCULAR VOLUME 88.8 fL (81-99); MONOCYTES # (AUTO) 0.4 (0.2-0.8); NEUTROPHILS # (AUTO) 2.4 (2.1-6.9); PLATELET COUNT 218 x10e3/uL (140-360); RED BLOOD COUNT 4.29 x10e6/uL (4.3-5.7); RED CELL DISTRIBUTION WIDTH 13.4 % (11.7-14.4)
[2018-03-26] MEDS: INSULIN REGULAR, HUMAN 100 UNIT/1 ML 3ML VIAL SQ SCH ×4 (07:30→20:18)
[2018-03-26 07:36] LABS: ANION GAP 9.8 mmol/L (8-16); BLOOD UREA NITROGEN 11 mg/dL (7-26); BUN/CREATININE RATIO 9 (6-25); CALCIUM 9.4 mg/dL (8.4-10.2); CARBON DIOXIDE 37 mmol/L (22-29); CHLORIDE 102 mmol/L (98-107); CREATININE, SERUM 1.27 mg/dL (0.72-1.25); EST GLOMERULAR FILTRATION RATE > 60 ML/MIN (60-); GLUCOSE 105 mg/dL (74-118); MAGNESIUM 1.5 MG/DL (1.3-2.1); POTASSIUM 3.8 mmol/L (3.5-5.1); SODIUM 145 mmol/L (136-145)
[2018-03-26] MEDS: FAMOTIDINE 20 MG/2 ML VIAL IV SCH ×2 (08:53→17:15)
[2018-03-26] MEDS: HYDRALAZINE HCL 25 MG TAB PO SCH ×3 (08:54→20:18)
[2018-03-26] MEDS: ASPIRIN 81 MG CHEW TAB PO SCH (08:54)
[2018-03-26] MEDS: FUROSEMIDE 40 MG TAB PO SCH (09:03)
[2018-03-26] MEDS: CARVEDILOL 12.5 MG TAB PO SCH ×2 (09:03→17:15)
[2018-03-26] MEDS: APIXABAN 5 MG TABLET PO SCH ×2 (09:03→17:15)
[2018-03-26] MEDS: ACETAMINOPHEN 325 MG TAB PO PRN (09:56)
[2018-03-26] MEDS ORDERED: Albuterol/Ipratropium Nebulize NEB (11:54)
[2018-03-26] MEDS ORDERED: BACTRIM DS TAB1 EACH PO (11:54)
[2018-03-26] MEDS ORDERED: Apixaban PO ×2 (11:54)
[2018-03-26] MEDS: VANCOMYCIN 1GM/NS 250 ML 250 ML IV SCH ×2 (12:18)
[2018-03-26] MEDS: ATORVASTATIN 10 MG TAB PO SCH (20:18)
[2018-03-26] MEDS: INSULIN DETEMIR 100 UNIT/ML PEN SQ SCH (20:18)
[2018-03-26] MEDS: QUETIAPINE FUMARATE 100 MG TAB PO SCH (20:18)
[2018-03-26] MEDS: MONTELUKAST SODIUM 10 MG TAB PO SCH (20:18)
[2018-03-27] VITALS (8 sets, daily range): BP systolic 135–160; BP diastolic 72–89
[2018-03-27] MEDS: GUAIFENESIN 600MG/DEXTROMETHORPHAN 30MG TABSR PO SCH ×4 (00:14→17:29)
[2018-03-27] MEDS: VANCOMYCIN 1GM/NS 250 ML 250 ML IV SCH ×2 (00:14→12:05)
[2018-03-27] MEDS: ALBUTEROL/IPRATROPIUM 3 ML NEB NEB SCH ×6 (03:18→23:45)
[2018-03-27 07:02] LABS: BASOPHILS % 0.4 % (0.0-1.0); EOSINOPHILS # (AUTO) 0.2 (0.0-0.4); HEMATOCRIT 38.4 % (38.2-49.6); HEMOGLOBIN 11.5 g/dL (14.0-18.0); LYMPHOCYTES % 38.1 % (18.0-39.1); MEAN CORPUSCULAR HEMOGLOBIN 26.4 pg (28-32); MEAN CORPUSCULAR HGB CONC 29.9 g/dL (31-35); MEAN CORPUSCULAR VOLUME 88.1 fL (81-99); MONOCYTES # (AUTO) 0.5 (0.2-0.8); MONOCYTES % 9.1 % (4.4-11.3); NEUTROPHILS # (AUTO) 2.6 (2.1-6.9); NEUTROPHILS % 48.1 % (38.7-80.0); PLATELET COUNT 250 x10e3/uL (140-360); RED BLOOD COUNT 4.36 x10e6/uL (4.3-5.7); RED CELL DISTRIBUTION WIDTH 13.4 % (11.7-14.4)
[2018-03-27] MEDS: INSULIN REGULAR, HUMAN 100 UNIT/1 ML 3ML VIAL SQ SCH ×4 (07:30→21:00)
[2018-03-27 07:33] LABS: ANION GAP 9.5 mmol/L (8-16); BLOOD UREA NITROGEN 12 mg/dL (7-26); BUN/CREATININE RATIO 10 (6-25); CALCIUM 9.4 mg/dL (8.4-10.2); CARBON DIOXIDE 37 mmol/L (22-29); CHLORIDE 99 mmol/L (98-107); EST GLOMERULAR FILTRATION RATE > 60 ML/MIN (60-); GLUCOSE 100 mg/dL (74-118); MAGNESIUM 1.5 MG/DL (1.3-2.1); POTASSIUM 3.5 mmol/L (3.5-5.1); SODIUM 142 mmol/L (136-145)
[2018-03-27] MEDS: FAMOTIDINE 20 MG/2 ML VIAL IV SCH ×2 (08:34→17:28)
[2018-03-27] MEDS: CARVEDILOL 12.5 MG TAB PO SCH ×2 (08:35→17:28)
[2018-03-27] MEDS: HYDRALAZINE HCL 25 MG TAB PO SCH ×3 (08:35→21:19)
[2018-03-27] MEDS: ASPIRIN 81 MG CHEW TAB PO SCH (08:35)
[2018-03-27] MEDS: APIXABAN 5 MG TABLET PO SCH ×2 (08:36→17:28)
[2018-03-27] MEDS: FUROSEMIDE 40 MG TAB PO SCH (08:36)
[2018-03-27] MEDS: HYDROCODONE/APAP 5MG-325MG TAB PO PRN ×2 (14:56→23:00)
[2018-03-27] MEDS: MONTELUKAST SODIUM 10 MG TAB PO SCH (21:20)
[2018-03-27] MEDS: QUETIAPINE FUMARATE 100 MG TAB PO SCH (21:20)
[2018-03-27] MEDS: ATORVASTATIN 10 MG TAB PO SCH (21:20)
[2018-03-27] MEDS: INSULIN DETEMIR 100 UNIT/ML PEN SQ SCH (22:14)
[2018-03-28] MEDS: GUAIFENESIN 600MG/DEXTROMETHORPHAN 30MG TABSR PO SCH ×3 (00:01→12:19)
[2018-03-28] MEDS: VANCOMYCIN 1GM/NS 250 ML 250 ML IV SCH (00:01)
[2018-03-28] MEDS: ALBUTEROL/IPRATROPIUM 3 ML NEB NEB SCH ×3 (03:00→11:01)
[2018-03-28 04:32] VITALS: BP 144/80
[2018-03-28 07:48] VITALS: BP 152/80
[2018-03-28] MEDS: FAMOTIDINE 20 MG/2 ML VIAL IV SCH (08:53)
[2018-03-28] MEDS: CARVEDILOL 12.5 MG TAB PO SCH (08:54)
[2018-03-28] MEDS: ASPIRIN 81 MG CHEW TAB PO SCH (08:54)
[2018-03-28] MEDS: HYDRALAZINE HCL 25 MG TAB PO SCH (08:54)
[2018-03-28] MEDS: FUROSEMIDE 40 MG TAB PO SCH (08:54)
[2018-03-28] MEDS: APIXABAN 5 MG TABLET PO SCH (08:54)
[2018-03-28] MEDS: HYDROCODONE/APAP 5MG-325MG TAB PO PRN (08:55)
[2018-03-28] MEDS: INSULIN REGULAR, HUMAN 100 UNIT/1 ML 3ML VIAL SQ SCH ×2 (08:57→12:24)
[2018-03-28 10:00] VITALS: BP 152/80
[2018-03-28] MEDS ORDERED: BACTRIM DS TAB1 EACH PO (10:03)
[2018-03-28] MEDS ORDERED: Apixaban PO (10:03)
[2018-03-28] MEDS ORDERED: RIFAMPIN300 MG PO (10:03)
[2018-03-28] MEDS ORDERED: TYLENOL WITH C1 EACH PO (10:29)
[2018-03-28 11:37] VITALS: BP 127/77
--- NOTE | 2018-03-28 15:42 | Discharge Summary ---
ADMITTING DIAGNOSES 1. Sepsis. 2. Healthcare-associated pneumonia. 3. Type-2 diabetes. 4. Left pulmonary embolism. 5. Chronic systolic congestive heart failure. 6. Normocytic anemia. 7. Diverticulosis. 8. Chronic obstructive pulmonary disease. 9. Physical deconditioning. DISCHARGE DIAGNOSES 1. Sepsis. 2. Healthcare-associated pneumonia. 3. Type-2 diabetes. 4. Left pulmonary embolism. 5. Chronic systolic congestive heart failure. 6. Normocytic anemia. 7. Diverticulosis. 8. Chronic obstructive pulmonary disease. 9. Physical deconditioning. 10. Rule out influenza. 11. Methicillin-resistant Staphylococcus aureus of the sputum. On admission, the patient was started on Levaquin. The patient was started on Lovenox originally and then switched to p.o. b.i.d. Eliquis. Recent echo showed EF of 25% to 30%. Chest x-ray showed patchy density in the left lower lobe concerning for pneumonia. CT of the abdomen showed an embolus in the left lower lobe. Segmental pulmonary artery colonic diverticulosis without significant inflammatory change. Sputum culture showed MRSA sensitive to vancomycin. Antibiotics were changed to vancomycin. Urine culture was negative. Blood culture was negative. Since the patient was a recent discharge from [facility], the pneumonia is assumed to be healthcare-associated. The patient will receive a few days' worth of IV vancomycin for the MRSA prior to discharging just because he admits so frequently. The patient has a history of COPD, morbid obesity, obstructive sleep apnea, chronic systolic CHF, AICD placement, diabetes type 2. Surgical history of AICD placement, cholecystectomy, back surgery. The patient will discharge home today with 14 days of rifampin as well as Bactrim and Eliquis daily, albuterol and Mucinex. He will follow up with cardiology in 1 to 2 weeks and primary care in 1 to 2 weeks. The patient agrees to the instructions and agrees to follow up. Dictated by: Cielo Sung NP GENARO AMADO MD Job#: [id number]
[2018-03-29] MEDS ORDERED: APIXABAN 5 MG TABLET PO SCH (09:00)
== END 2018-03-28 12:52 | disposition home or self-care (01) | DRG 871 ==
LOC: ER 14:45 → EDBEDREQ 19:49 → MED/SURG3 20:51
PROVIDERS: ADMIT Internal Medicine; ATTEND Internal Medicine
DX: A41.9 Sepsis, unspecified organism (principal); J18.9 Pneumonia, unspecified organism; I26.99 Other pulmonary embolism without acute cor pulmonale; I50.22 Chronic systolic (congestive) heart failure; J44.0 Chronic obstructive pulmonary disease with (acute) lower respiratory infection; I42.9 Cardiomyopathy, unspecified; K57.90 Diverticulosis of intestine, part unspecified, without perforation or abscess without bleeding; Z22.322 Carrier or suspected carrier of Methicillin resistant Staphylococcus aureus; G47.33 Obstructive sleep apnea (adult) (pediatric); Z95.810 Presence of automatic (implantable) cardiac defibrillator; Y95 Nosocomial condition; Z99.81 Dependence on supplemental oxygen; E78.5 Hyperlipidemia, unspecified; E11.40 Type 2 diabetes mellitus with diabetic neuropathy, unspecified; I25.10 Atherosclerotic heart disease of native coronary artery without angina pectoris; J30.9 Allergic rhinitis, unspecified; Z79.4 Long term (current) use of insulin
CPT/HCPCS: 36415; 71046; 71260; 74177; 80048; 80053; 80061; 80202; 81001; 82550; 82553; 82805; 82948; 83036; 83605; 83690; 83735; 83880; 84443; 84484; 85025; 85610; 85730; 87040; 87070; 87086; 87186; 87205; 87400; 93005; 94640; 94660; 96372; 99285; J0360; J1650; J1956; J3370; J7040; J7050; Q9967

== ENCOUNTER 2018-04-22 15:22 | Emergency (ER) | payer OTHER ==
[~2018-04-22] VITALS: Ht 177.8 cm; Wt 135.6 kg
[~2018-04-22 15:22] MED LIST changes: -ASPIR 8181 MG; +ASPIR 8181 MG PO; +Apixaban PO; +BACTRIM DS TAB1 EACH PO; +RIFAMPIN300 MG PO; +TYLENOL WITH C1 EACH PO
[2018-04-22] MEDS ORDERED: ALBUTEROL SULF 0.083% NEB SOLN 3 ML NEB NEB STA (15:39)
[2018-04-22] MEDS ORDERED: IPRATROPIUM BROMIDE 0.02% 2.5 ML NEB NEB STA (15:39)
[2018-04-22] MEDS ORDERED: MORPHINE SULFATE 2 MG/ML SYR IV ONE (15:55)
--- NOTE | 2018-04-22 16:35 | Diagnostic Imaging Report ---
PROCEDURE:X-RAY CHEST, ONE VIEW COMPARISON:Patients [facility], CT, CT CHEST W, 03/20/2018, 17:57. Patients [facility], DX, CHEST 2 VIEWS, 03/20/2018, 15:32. INDICATIONS:CHEST PAIN FINDINGS: Stable cardiomegaly with AICD lead in right ventricle. Stable pulmonary hyperinflation. Chronic atelectasis/scar in the lateral left lung field is stable. No new findings in the right lung. No large effusions or pneumothorax. Pulmonary vascular markings are normal. Bones and soft tissues are unremarkable. CONCLUSION: Stable cardiomegaly. No vascular congestion. Stable AICD lead. No new cardiopulmonary process. Dictated by: Radha Tony M.D. on 04/22/2018 at 16:38 Electronically approved by: Radha Tony M.D. on 04/22/2018 at 16:38
[2018-04-22 17:38] LABS: BASOPHILS # (AUTO) 0.1 (0.0-0.1); BASOPHILS % 0.8 % (0.0-1.0); EOSINOPHILS # (AUTO) 0.3 (0.0-0.4); EOSINOPHILS % 4.4 % (0.0-6.0); HEMATOCRIT 45.9 % (38.2-49.6); LYMPHOCYTES # (AUTO) 3.1 (1.0-3.2); LYMPHOCYTES % 42.9 % (18.0-39.1); MEAN CORPUSCULAR HEMOGLOBIN 26.3 pg (28-32); MEAN CORPUSCULAR HGB CONC 30.5 g/dL (31-35); MEAN CORPUSCULAR VOLUME 86.1 fL (81-99); MONOCYTES # (AUTO) 0.4 (0.2-0.8); MONOCYTES % 5.8 % (4.4-11.3); NEUTROPHILS # (AUTO) 3.3 (2.1-6.9); NEUTROPHILS % 45.7 % (38.7-80.0); PLATELET COUNT 183 x10e3/uL (140-360); RED BLOOD COUNT 5.33 x10e6/uL (4.3-5.7); RED CELL DISTRIBUTION WIDTH 13.2 % (11.7-14.4)
[2018-04-22 17:57] LABS: ALANINE AMINOTRANSFERASE 22 IU/L (0-55); ALBUMIN 3.7 g/dL (3.5-5.0); ALKALINE PHOSPHATASE 79 IU/L (40-150); ANION GAP 14.5 mmol/L (8-16); BLOOD UREA NITROGEN 8 mg/dL (7-26); BUN/CREATININE RATIO 7 (6-25); CALCIUM 9.2 mg/dL (8.4-10.2); CARBON DIOXIDE 30 mmol/L (22-29); CHLORIDE 101 mmol/L (98-107); CREATINE KINASE 213 IU/L (30-200); EST GLOMERULAR FILTRATION RATE > 60 ML/MIN (60-); GLUCOSE 159 mg/dL (74-118); POTASSIUM 3.5 mmol/L (3.5-5.1); SODIUM 142 mmol/L (136-145)
[2018-04-22 18:02] LABS: INR 1.01; PROTHROMBIN TIME 12.5 seconds (11.9-14.5)
[2018-04-22 18:03] LABS: PARTIAL THROMBOPLASTIN TIME 31.8 seconds (23.8-35.5)
[2018-04-22] MEDS ORDERED: MORPHINE SULFATE 2 MG/ML SYR ONE (19:43)
[2018-04-22 20:15] LABS: BILIRUBIN,URINE NEGATIVE (NEGATIVE); CLARITY,URINE CLEAR (CLEAR); COLOR,URINE YELLOW (YELLOW); KETONES,URINE NEGATIVE (NEGATIVE); LEUKOCYTE ESTERASE ,URINE NEGATIVE (NEGATIVE); NITRITE,URINE NEGATIVE (NEGATIVE); PROTEIN,URINE DIPSTICK TRACE (NEGATIVE); URINE UROBILINOGEN 1 mg/dL (0.2 - 1)
[2018-04-22 20:26] LABS: EPITHELIAL CELLS,URINE FEW /LPF; MUCUS,URINE FEW (RARE); RBC,URINE 0-5 /HPF (0-5); WBC,URINE (MAN) 0-5 /HPF (0-5)
[2018-04-22] MEDS ORDERED: ALBUTEROL/IPRATROPIUM 3 ML NEB NEB ONE (20:30)
[2018-04-22 20:33] LABS: CREATINE KINASE MB 1.1 ng/mL (0-5.0)
--- OUTSIDE RECORDS SUMMARY | 2018-07-31 14:35 | XMS REPORT ---
Author Author [facility] Address Unknown Phone Unavailable Care Team Providers Care Corrugator Operator Helper Name Role Phone GENARO AMADO Unavailable Unavailable VANDANA DOZIER Unavailable Unavailable CORIN PAYAN Unavailable Unavailable CRISTIAN, LEEANN Unavailable Unavailable Problems This patient has no known problems. Allergies, Adverse Reactions, Alerts This patient has no known allergies or adverse reactions. Medications This patient has no known medications. Results Test Description Test Time Test Comments Text Results Atomic Results Result Comments US ABDOMEN COMPLETE 2018-05-16 16:48:00 [place] [address] Patient Name: JEANCARLOS ISAAC MR #: [id number] : 1960 Age/Sex: 57/M Req #: [id number] Adm Physician: GENARO AMADO MD Ordered by: Leidy Bedolla LAB CLERK Report #: [id number] Location: [facility] Room/Bed: [facility] Procedure: [id number] US/US ABDOMEN COMPLETE Exam Date : 05/16/18 Exam Time: 1506 REPORT STATUS: Signed PROCEDURE: ABDOMINAL ULTRASOUND COMPARISON: [facility], CT, CT ABDOMEN/PELVIS W, 03/20/2018, 17:57. INDICATIONS: ABDOMEN PAIN TECHNIQUE: Eduardo-scale and color sonographic images were obtained of the abdomen in transverse and sagittal planes. FINDINGS: Exam limited by patient's large body habitus. Liver: 15.5 cm in length in right midclavicular line. Increased echogenicity. No masses. Main portal vein: 1.0 cm, hepatopetal flow Gallbladder: Absent Common Bile Duct: 0.6 cm Sonographic Lepe's sign: Negative Right kidney: 10.4 cm Left kidney: 10.3 cm Normal echogenicity. No hydronephrosis, stones, or focal lesions. Spleen: 10.3 cm. No focal lesions. Pancreas: Obscured by overlying bowel gas. Inferior vena cava: Patent Aorta: Proximal portion is within normal limits. Mid and distal portions are obscured by bowel gas. Ascites: None CONCLUSION: 1. Exam limited by patient body habitus and overlying bowel gas. The mid and distal portions of the aorta and the pancreas are obscured 2. Diffuse hepatic steatosis. No focal lesions. Dejan Slater M.D. Dictated by: Dejan Slater M.D. on 2017 at 16:48 Electronically approved by: Dejan Slater M.D. on at 16:48 Dictated By: DEJAN SLATER MD 47 Transcribed By: BRIAN on 05/16/181647 COPY TO: LEIDY BEDOLLA LAB CLERK CHEST SINGLE (PORTABLE) 2018-05-14 14:52:00 [place] [address] Patient Name: JEANCARLOS ISAAC MR #: [id number] : 1960 Age/Sex: 57 /M Req #: [id number] Adm Physician: Ordered by: ZIGGY SETH MD Report #: [id number] Location: ER Room/Bed: __ Procedure: [id number] DX/CHEST SINGLE (PORTABLE) Exam Date: 05/14/18 Exam Time: 1415 REPORT STATUS: Signed PROCEDURE : A single AP view of the chest. COMPARISON: [facility], DX , CHEST SINGLE (NOT PORTABLE), 04/22/2018, 15:53. INDICATIONS: CHEST PAIN, CHF FINDINGS: Lines/tubes: Stable left upper chest single- lead cardiac device. Lungs: Lungs are well-inflated. No consolidation. Mild perihilar interstitial opacities consistent with interstitial pulmonary edema. Pleura: Questionable left-sided pleural effusion. Heart and mediastinum: Stable enlargement of the cardiac silhouette. Central pulmonary venous congestion. Bones: No acute bony abnormality. IMPRESSION: 1. enlarged cardiac silhouette, central pulmonary venous congestion and perihilar interstitial edema. Questionable right left-sided pleural effusion. Findings likely represent decompensated CHF. Dejan Slater M.D. Dictated by: Dejan Slater M.D. on 05/14/2018 at 14:52 Electronically approved by: Dejan Slater M.D. on 05/14/2018 at 14 :52 Dictated By: DEJAN SLATER MD 1452 Transcribed By: BRIAN on 05/14/18 1452 COPY TO: ZIGGY SETH MD CHEST SINGLE (NOT PORTABLE) 2018-04-22 16:38:00 [place] [address] Patient Name: JEANCARLOS ISAAC NIMA MR #: [id number] : 1960 Age/Sex: 57 /M Req #: [id number] Adm Physician: Ordered by: RENNY POWER LAB CLERK Report #: [id number] Location: ER Room/Bed: Procedure: DX/CHEST SINGLE (NOT PORTABLE) Exam Date: Exam Time: REPORT STATUS: Signed PROCEDURE: X-RAY CHEST, ONE VIEW COMPARISON: [facility], CT, CT CHEST W, 03/20/2018, 17:57. [facility], DX, CHEST 2 VIEWS , 03/20/2018, 15:32. INDICATIONS: CHEST PAIN FINDINGS: Stable cardiomegaly with AICD lead in right ventricle. Stable pulmonary hyperinflation. Chronic atelectasis/scar in the lateral left lung field is stable. No new findings in the right lung. No large effusions or pneumothorax. Pulmonary vascular markings are normal. Bones and soft tissues are unremarkable. CONCLUSION: Stable cardiomegaly. No vascular congestion. Stable AICD lead. No new cardiopulmonary process. Dictated by: Ame Knight M.D. on 04/22/2018 at 16:38 Electronically approved by: Ame Knight M.D. on 04/22/2018 at 16:38 Dictated By: AME KNIGHT MD Transcribed By: BRIAN on 04/22/18 1638 COPY TO: RENNY POWER LAB CLERK CT CHEST W [place] [address] Patient Name: JEANCARLOS ISAAC MR #: [id number] : 1960 Age/Sex: 57/M Req # : [id number] Adm Physician: Ordered by: HILDA HERRERA LAB CLERK Report #: [id number] Location: ER Room/Bed: Procedure: CT/CT CHEST W Exam Date: Exam Time: REPORT STATUS: Signed EXAM: CT Chest, Abdomen and Pelvis WITH contrast INDICATION: Chest pain, shortness of breath. Abdominal pain, nausea and vomiting. COMPARISON: None. TECHNIQUE: Chest, abdomen and pelvis were scanned utilizing a multidetector helical scanner from the lung apex to the pubic symphysis before and after administration of IV contrast. Coronal and sagittal reformations were obtained. Pulmonary embolism protocol was performed of the chest. Scan was performed when during portal venous phase. IV CONTRAST: 100 cc Isovue 370 ORAL CONTRAST: 900 cc of Gastrografin and water mixture. RADIATION DOSE: Total DLP: 1373.43 mGy*cm Estimated effective dose: (DLP x 0.015 x size factor) mSv COMPLICATIONS: None FINDINGS: LINES and TUBES: None. Left-sided ICD. LUNGS AND AIRWAYS: Small filling defect in the posterior left lower lobe pulmonary artery on image 62 series 2, with blood flow distal to it, suggestive of small nonobstructing embolus. Mild bilateral patchy groundglass density. There is irregular patchy density in the lingula and posterior left lower lobe suggestive of subsegmental atelectasis. PLEURA: The pleural spaces are clear. HEART AND MEDIASTINUM: The thyroid gland is normal. No mediastinal, hilar or axillary lymphadenopathy. The heart is moderately enlarged with evidence of left ventricular hypertrophy. tThere is no pericardial effusion. Mild lipomatosis of the mediastinum. HEPATOBILIARY: No focal hepatic lesions. No biliary ductal dilation. GALLBLADDER: Status post cholecystectomy. SPLEEN: No splenomegaly. PANCREAS: No focal masses or ductal dilatation. ADRENALS: No adrenal nodules KIDNEYS/URETERS: Kidneys enhance symmetrically. No hydronephrosis. No cystic or solid mass lesions. No stones. GI TRACT: No abnormal distention, wall thickening, or evidence of bowel obstruction. Appendix is normal. Scattered descending and sigmoid colon diverticula without CT evidence of diverticulitis. PELVIC ORGANS/ BLADDER: Mild diffuse thickening of the urinary bladder is likely related to underdistention. LYMPH NODES: There is celiac lymph node measures 1.4 cm in short axis on image 30 series 5. VESSELS: Atherosclerotic calcification of the aorta and iliac arteries without aneurysmal dilatation. PERITONEUM / RETROPERITONEUM: No free air or fluid. BONES: Status post laminectomy and posterior fusion of L4-L5 and L5-S1 with intact hardware. Degenerative disc disease at L2-L3 with effective disc phenomenon. SOFT TISSUES: A small fat-containing umbilical and right inguinal hernias. IMPRESSION: 1. Small nonocclusive embolus in the left lower lobe segmental pulmonary artery. Left basilar and lingular subsegmental atelectasis. 2. Colonic diverticulosis without significant pericolonic inflammatory change to suggest acute diverticulitis. Discussed with Dr. Dozier from the ER at 6:35 PM on 03/20/2018. Signed by: Dr. Dasha Ceballos M.D. on 03/20/2018 6:36 PM Dictated By: MARY CARMEN CEBALLOS MD, MD 35 Transcribed By : HONEY on 03/20/181835 COPY TO: HILDA HERRERA LAB CLERK CHEST 2 VIEWS [place] [address] Patient Name: JEANCARLOS ISAAC MR #: [id number] : 1960 Age/Sex: 57/M Req # : [id number] Adm Physician: Ordered by: HILDA HERRERA LAB CLERK Report #: [id number] Location: ER Room/Bed: Procedure: [id number] DX/CHEST 2 VIEWS Exam Date: 03/20/18 Exam Time: 1520 REPORT STATUS: Signed PROCEDURE: Frontal and lateral views of the chest. COMPARISON: None. INDICATIONS: sob, abdominal pain, fever FINDINGS: Lines/tubes: None. Left-sided AICD. Lungs: Patchy density in the left lower lobe concerning for pneumonia in the proper clinical setting. Pleura: Small left pleural effusion. There is no pneumothorax. Heart and mediastinum: The cardiac silhouette is moderately enlarged. Bones: No acute bony abnormality. IMPRESSION: 1. Patchy density in the left lower lobe concerning for pneumonia in the setting of shortness of breath and fever. Dasha Ceballos M.D. Dictated by: Dasha Ceballos M.D. on 03/20/2018 at 16:30 Electronically approved by: Dasha Ceballos M.D. on 03/20/2018 at 16: 30 Dictated By: MARY CARMEN CEBALLOS MD, MD 163 Transcribed By: BRIAN on 03/20/18 1630 COPY TO: HILDA HERRERA LAB CLERK CT ABDOMEN/PELVIS W [place] [address] Patient Name: JEANCARLOS ISAAC MR #: [id number] : 1960 Age/Sex: 57/M Req #: [id number] Adm Physician: Ordered by: HILDA HERRERA LAB CLERK Report # : [id number] Location: ER Room/Bed: Procedure: [id number] CT/CT ABDOMEN/PELVIS W Exam Date: Exam Time: REPORT STATUS: Signed EXAM: CT Chest, Abdomen and Pelvis WITH contrast INDICATION: Chest pain, shortness of breath. Abdominal pain, nausea and vomiting. COMPARISON: None. TECHNIQUE: Chest, abdomen and pelvis were scanned utilizing a multidetector helical scanner from the lung apex to the pubic symphysis before and after administration of IV contrast. Coronal and sagittal reformations were obtained. Pulmonary embolism protocol was performed of the chest. Scan was performed when during portal venous phase. IV CONTRAST: 100 cc Isovue 370 ORAL CONTRAST : 900 cc of Gastrografin and water mixture. RADIATION DOSE: Total DLP: 1373.43 mGy*cm Estimated effective dose: (DLP x 0.015 x size factor) mSv COMPLICATIONS: None FINDINGS: LINES and TUBES: None. Left-sided ICD. LUNGS AND AIRWAYS: Small filling defect in the posterior left lower lobe pulmonary artery on image 62 series 2, with blood flow distal to it, suggestive of small nonobstructing embolus. Mild bilateral patchy groundglass density. There is irregular patchy density in the lingula and posterior left lower lobe suggestive of subsegmental atelectasis. PLEURA: The pleural spaces are clear. HEART AND MEDIASTINUM: The thyroid gland is normal. No mediastinal, hilar or axillary lymphadenopathy. The heart is moderately enlarged with evidence of left ventricular hypertrophy. tThere is no pericardial effusion. Mild lipomatosis of the mediastinum. HEPATOBILIARY: No focal hepatic lesions. No biliary ductal dilation. GALLBLADDER: Status post cholecystectomy. SPLEEN: No splenomegaly. PANCREAS: No focal masses or ductal dilatation. ADRENALS: No adrenal nodules KIDNEYS/URETERS: Kidneys enhance symmetrically. No hydronephrosis. No cystic or solid mass lesions. No stones. GI TRACT: No abnormal distention, wall thickening, or evidence of bowel obstruction. Appendix is normal. Scattered descending and sigmoid colon diverticula without CT evidence of diverticulitis. PELVIC ORGANS/ BLADDER: Mild diffuse thickening of the urinary bladder is likely related to underdistention. LYMPH NODES: There is celiac lymph node measures 1.4 cm in short axis on image 30 series 5. VESSELS: Atherosclerotic calcification of the aorta and iliac arteries without aneurysmal dilatation. PERITONEUM / RETROPERITONEUM: No free air or fluid. BONES: Status post laminectomy and posterior fusion of L4-L5 and L5-S1 with intact hardware. Degenerative disc disease at L2-L3 with effective disc phenomenon. SOFT TISSUES: A small fat-containing umbilical and right inguinal hernias. IMPRESSION: 1. Small nonocclusive embolus in the left lower lobe segmental pulmonary artery. Left basilar and lingular subsegmental atelectasis. 2. Colonic diverticulosis without significant pericolonic inflammatory change to suggest acute diverticulitis. Discussed with Dr. Dozire from the ER at 6:35 PM on 03/20/2018. Signed by: Dr. Dasha Ceballos M.D. on 03/20/2018 6:36 PM Dictated By: MARY CARMEN CEBALLOS MD, MD 35 Transcribed By : HONEY on 03/20/181835 COPY TO: HILDA HERRERA NP LUMBAR 3 VIEW [place] [id number] [place] [address] Patient Name: JEANCARLOS ISAAC MR #: [id number] : 1960 Age/Sex: 57/M Req # : [id number] Adm Physician: Ordered by: CORIN PAYAN MD Report #: [id number] Location: ER Room/Bed: Procedure: [id number] DX/LUMBAR 3 VIEW Exam Date: 03/16/18 Exam Time: 1355 REPORT STATUS: Signed EXAMINATION: Lumbar spine series. CLINICAL HISTORY: Back pain COMPARISON: None. DISCUSSION: 3 views of the lumbar spine are submitted for interpretation. Five nonrib-bearing lumbar type vertebral bodies are identified. No acute, displaced fractures or dislocation. Status post posterior fusion of L4-S1 with bilateral intrapedicular screws, intervening rods and intervertebral disc spacers. No significant spondylolisthesis. Vertebral body heights are preserved. Degenerative disc changes L3-L4. Sacroiliac joints are unremarkable. Soft tissues have a normal appearance. IMPRESSION: 1. Status post posterior fusion of L4-S1 with intact hardware. No acute abnormalities. The staff physician below has personally reviewed this exam on the date of dictation. Signed by: Dr. Dejan Slater M.D. on 03/16/2018 2:27 PM Dictated By: DEJAN SLATER MD 26 Transcribed By: HONEY on 03/16/181426 COPY TO: CORIN PAYAN MD CHEST SINGLE (PORTABLE) [facility] [address] [place], [place] [address] Patient Name: JEANCARLOS ISAAC MR #: [id number] : 1960 Age/Sex: 57/M Req #: [id number] Adm Physician: Ordered by: LEEANN FOSTER MD Report #: [id number] Location: ER Room/Bed: ___ Procedure: [id number] DX/CHEST SINGLE (PORTABLE) Exam Date: 03/03/18 Exam Time: 0215 REPORT STATUS: Signed EXAM: CHEST SINGLE (PORTABLE), AP 1 view INDICATION: Midsternal chest pain COMPARISON: AP view of the chest February 13, 2018 FINDINGS: LINES/TUBES: Stable position of left approach cardiac device. LUNGS: No consolidations or edema. Stable scarring left lung base PLEURA: No effusions or pneumothorax. HEART AND MEDIASTINUM: Stable cardiomegaly BONES AND SOFT TISSUES: No acute findings. IMPRESSION: No acute thoracic abnormality. Signed by: Dr. Jayy Mancera M.D. on 03/03/2018 2:52 AM Dictated By: JAYY MANCERA MD 1 Transcribed By: HONEY on 03/03/18251 COPY TO: LEEANN FOSTER MD CHEST SINGLE (PORTABLE) [address] [address] Patient Name: JEANCARLOS ISAAC MR #: [id number] : 1960 Age/Sex: 57/M Req #: [id number] Adm Physician: GENARO AMADO MD Ordered by: JENNIFER GONZALES MD Report #: [id number] Location: IMCU Room/Bed: [facility] Procedure: [id number] DX/CHEST SINGLE (PORTABLE) Exam Date: 02/13/18 Exam Time: 449 REPORT STATUS: Signed CHEST SINGLE (PORTABLE), 02/13/2018 5:00 AM Technique: CHEST SINGLE (PORTABLE) Comparison: 02/11/2018 Clinical history: Pneumonia Findings: See Impression Impression: Limited by soft tissue attenuation/body habitus and portable technique. 1. Lines/Tubes: Stable left chest wall ICD. 2. Stable enlarged cardiac silhouette. 3. Left basilar opacity which may be due to atelectasis or consolidation. Question underlying pleural fluid. Signed by: Dr Eva Martines MD on 02/13/2018 5:47 AM Dictated By: EVA MARTINES MD 6 Transcribed By: HONEY on 02/13/18546 COPY TO: JENNIFER GONZALES MD, [facility] CT BRAIN WO [place] [address] Patient Name: JEANCARLOS ISAACN MR #: [id number] : 1960 Age/Sex: 57/M Req # : [id number] Adm Physician: GENARO AMADO MD Ordered by: Leidy Bedolla LAB CLERK Report #: [id number] Location: [facility] Room/Bed: [facility] [address] ___ Procedure: [id number] CT/CT BRAIN WO Exam Date: Exam Time: REPORT STATUS: Signed EXAMINATION: Head CT HISTORY: Status post fall, head trauma, pain COMPARISON: None. TECHNIQUE: Multidetector axial images were obtained without contrast from the foramen magnum to the vertex . The images were reconstructed using brain and bone algorithms. Thin section brain images were reformatted into coronal and sagittal planes. Motion/streaking artifact limits the evaluation of the skull base and posterior cranial fossa. FINDINGS: Parenchyma: 1. No abnormal densities. 2. No mass or hemorrhage. No CT evidence of acute territorial vascular insult. Extra-axial spaces:No abnormal density. No extra-axial fluid collections Brain volume: Normal for age. Ventricles: No hydrocephalus or displacement. Arteries: No density suggestive of thrombus. Dural sinuses: No abnormal density. Extra-axial spaces: No abnormal density. Foramen magnum: No mass, Chiari malformation, or basilar invagination. Sella: No obvious mass. Paranasal/mastoid sinuses: Imaged portions unremarkable. Skull/ Scalp: No lytic or blastic lesions. No fractures. IMPRESSION: No intracranial abnormalities, particularly no post traumatic hemorrhage. Signed by: Dr. No Stout M.D. on 02/11/2018 4:23 PM Dictated By: NO STOUT MD 22 Transcribed By: HONEY on 02/11/181622 COPY TO: LEIDY BEDOLLA LAB CLERK CHEST SINGLE (PORTABLE) [place] [address] Patient Name: JEANCARLOS ISAAC MR #: [id number] : 1960 Age/Sex: 57/M Req #: [id number] Adm Physician: Ordered by: LEEANN FOSTER MD Report #: [id number] Location: Room/Bed: ___ Procedure: DX/CHEST SINGLE (PORTABLE) Exam Date: 02/11/18 Exam Time: 05 REPORT STATUS: Signed EXAM: CHEST SINGLE (PORTABLE), AP 1 view INDICATION: Shortness of breath COMPARISON: AP view of the chest February 03, 2018 FINDINGS: LINES/TUBES: Stable position of left approach cardiac device. LUNGS: Stable pulmonary edema and bibasilar atelectasis. PLEURA: No effusions or pneumothorax. HEART AND MEDIASTINUM: Stable enlargement of the cardiomediastinal silhouette. BONES AND SOFT TISSUES: No acute findings. IMPRESSION: No interval change. Signed by: Dr. Jayy Mancera M.D. on 2017 6:05 AM Dictated By: JAYY MANCERA MD 4 Transcribed By: HONEY on 02/11/18604 COPY TO: LEEANN FOSTER MD CHEST SINGLE (PORTABLE) [place] [address] Patient Name: JEANCARLOS ISAAC MR #: [id number] : 1960 Age/Sex: 57/M Req #: [id number] Adm Physician: Ordered by: LEEANN FOSTER MD Report #: [id number] Location: ER Room/Bed: ___ Procedure: [id number] DX/CHEST SINGLE (PORTABLE) Exam Date: 02/03/18 Exam Time: 06 REPORT STATUS: Signed EXAMINATION: Chest, CHEST SINGLE (PORTABLE) INDICATION: Chest pain COMPARISON: None FINDINGS: LINES: Left chest cardiac device with lead projecting over the expected region of the right ventricle. Heart: Mildly enlarged cardiac silhouette.. Vascular: Central vascular congestion.. Mediastinum: No mediastinal, hilar, or axillary mass or lymphadenopathy. Lungs: No parenchymal mass. Bibasilar atelectasis. Pleura: Small left pleural effusion.. . Bones: No acute osseous abnormality. Degenerative changes of the thoracic spine. Soft tissues: Normal. Impression: 1. Low lung volumes with evidence of bibasilar atelectasis left greater than right. 2. Cardiomegaly with evidence of central vascular congestion. Signed by: Dr. Jorge Sutherland M.D. on 02/03/2018 7:03 AM Dictated By: JORGE SZYMANSKI MD 2 Transcribed By: HONEY on 02/03/18702 COPY TO: LEEANN FOSTER MD VQ LUNG SCAN VENT PERFUSION [place] [address] Patient Name: JEANCARLOS ISAAC MR #: [id number] : 1960 Age/Sex: 56/M Req #: [id number] [facility] Physician: GENARO AMADO MD Ordered by: Leidy Bedolla LAB CLERK Report #: [id number] Location: MED/SURG3 Room/Bed: [facility] Procedure: [id number] NM/VQ LUNG SCAN VENT PERFUSION Exam Date: [...] By: HONEY on 11/06/17 1442 COPY TO: LEIDY BEDOLLA LAB CLERK CHEST SINGLE (NOT PORTABLE) [place] [address] Patient Name: JEANCARLOS ISAAC MR #: [id number] : 1960 Age/Sex: 56/M Req #: [id number] Adm Physician: Ordered by: ALVA PADILLA Report #: [id number] Location: ER Room/Bed: _ Procedure: [id number] DX/CHEST SINGLE (NOT PORTABLE) Exam Date: 11/03/17 [...]
--- OUTSIDE RECORDS SUMMARY | 2018-07-31 14:35 | XMS REPORT | Clinical Summary ---
Author Author [facility] Address Unknown Phone Unavailable Care Team Providers Care Director Of Publications Name Role Phone Cristino Bryant DO PCP [...] (three) times a day. 17 ued tablet carvedilol (COREG) 12.5 Take 12.5 mg by [...] (ALDACTONE) 25 MG tablet daily. 17 ued cephalexin (KEFLEX) 500 Take 500 mg by [...] #3) every 6 (six) hours as 17 ued 300-30 mg per tablet needed [...] 11/15/19 100 unit/mL injection skin daily before 18 (vial) breakfast for 30 days. bisacodyl [...] Noted Date Sleep-disordered breathing 10/15/2017 Respiratory failure ([facility]) 10/02/2017 Acute respiratory failure with hypoxia and hypercapnia ([facility]) 09/30/2017 HTN (hypertension), malignant 09/30/2017 Non compliance w medication regimen 09/30/2017 Heart failure ([facility]) 09/02/2017 Acute on chronic congestive heart failure ([facility]) 08/30/2017 VT (ventricular tachycardia) Nonsustained 08/09/2017 Hypertension, uncontrolled 07/31/2017 Acute deep vein thrombosis (DVT) of brachial vein of both upper extremities 07/21/2017 ([facility]) Acute on chronic combined systolic and diastolic congestive heart failure, 04/15/2017 NYHA class 4 ([facility]) CAD (coronary artery disease) 03/21/2017 Type 2 diabetes mellitus ([facility]) 03/21/2017 Anemia of chronic disease 03/21/2017 Chronic kidney disease, stage II (mild) 03/21/2017 Cerebrovascular accident (CVA) ([facility]) 01/22/2017 Acute exacerbation of CHF (congestive heart failure) ([facility]) 12/18/2016 Hypertension 2016 Hyperlipidemia 2016 Schizophrenia ([facility]) 2016 Hep C w/o coma, chronic ([facility]) 2016 Former smoker 2016 Acute on chronic systolic (congestive) heart failure ([facility]) 12/02/2016 Transient cerebral ischemia 12/01/2016 Resolved Problems Problem Noted Date Resolved Date Acute cholecystitis 07/12/2017 07/20/2017 SOB (shortness of breath) 05/04/2017 05/07/2017 SIRS (systemic inflammatory response syndrome) ([facility]) 03/21/2017 09/30/2017 Pneumonia 03/21/2017 09/30/2017 Chest pain 2016 09/30/2017 Encounters Date Type [...] Ep aicd implant single dual bi vent [[id number] (CPT )] 10/03/2017 Procedure Pass Procedural Cardiology 10/03/2017 Procedure Pass Procedural Cardiology 09/30/2017 Orders Only Transplant Siddhartha Summers RN Chronic systolic heart failure (Primary Dx) 09/29/2017 [facility] Cardiology Jacek Fuentes, Acute on chronic combined - Encounter DO systolic and diastolic 10/15/2017 Gina Ness PA congestive heart failure, Marcos Pride MD NYHA class 4 (Primary Sudeep Maier. ., Dx); Acute on chronic systolic congestive heart failure; SOB (shortness of breath); Other chest pain; Former smoker; Essential hypertension; Mixed hyperlipidemia; Undifferentiated schizophrenia; Coronary artery disease involving [place] coronary artery of [place] heart without angina pectoris 08/30/2017 [facility] Cardiology Wilber Quiñones MD Acute on chronic - Encounter Marcos Pride MD congestive heart failure, 09/05/2017 unspecified congestive heart failure type (Primary Dx) 07/31/2017 [facility] Neurology Neil Patel Hypertension, - Encounter [...] Pass General Surgery 07/17/2017 Surgery General Surgery Huntre Sandoval MD CHOLECYSTECTOMY, LAPAROSCOPIC 07/13/2017 Procedure Pass General Surgery 07/12/2017 [facility] General Surgery Cha Ibarra MD Acute cholecystitis - Encounter Marcos Pride MD (Primary Dx); 07/21/2017 Generalized abdominal pain; Nausea and vomiting, intractability of vomiting not specified, unspecified vomiting type; Chest pain, unspecified type; SOB (shortness of breath); Essential hypertension; Other schizophrenia; Acute on chronic systolic congestive heart failure 05/04/2017 Emergency General Internal Medicine Saji Guillen, DO SOB (shortness of breath) - Marcos Pride MD (Primary Dx) 05/07/2017 05/03/2017 Hospital Radiology GiovanniMarcos Benedict Shortness of breath Encounter MD Antoni 05/03/2017 Transcribe Access Marcos Neumann Shortness of breath Orders MD Antoni (Primary Dx) after 04/21/2017 Immunizations Name Dates Previously Given Next Due [...] Taken Blood Pressure 156/93 10/19/2017 9:19 AM [employer] OPERATOR Pulse 85 10/19/2017 9:19 AM [employer] MACHINE OPERATOR Temperature 35.8 C (96.4 F) 10/19/2017 9:19 AM [employer] MACHINE OPERATOR Respiratory Rate 16 10/15/2017 3:44 PM [employer] MACHINE OPERATOR Oxygen Saturation 93% 10/15/2017 3:44 PM [employer] MACHINE OPERATOR Inhaled Oxygen - - Concentration Weight 136 kg (299 lb 12.8 oz) 10/19/2017 9:19 AM [employer] MACHINE OPERATOR Height 177.8 cm (5' 10") 10/19/2017 9:19 AM [employer] MACHINE OPERATOR Body Mass Index 43.02 10/19/2017 9:19 AM [employer] MACHINE OPERATOR Plan of Treatment Health Maintenance Due Date Last Done Comments DIABETIC FOOT EXAM 1971 DIABETIC RETINAL EYE EXAM 1971 COLON CANCER SCREENING 2011 SHINGRIX VACCINE (#1) 2011 INFLUENZA VACCINE 05/29/2018 08/05/2017, 12/27/2016 Implants Implanted Type Area Prevention Rn Device Expiration Model / Identifier Date Serial / Lot Tuan [place] Df4 Tachy Lead - Cardiac N/A: N/A [place] 11/29/2021 [id number] / [id number] Pacing [employer]ENTIFIC- CRM / Implanted: Qty: 1 on 10/03/2017 by Leads or [id number] Abraham Barreto Jr., MD Electrodes or Accessorie s Dynagen El Icd Df4 Vr Defibrilla [place] D150 / Implanted: Qty: 1 on 10/03/2017 by tor ICD [employer]ENTIFIC [id number] / Abraham Barreto Jr., MD Devices [id number] [id number] In Lumbar L4-L5 Procedures Procedure Name Priority Date/Time Associated Diagnosis Comments ZZESTIMATED GFR STAT 10/19/2017 Results for this 10:00 AM [employer] MACHINE OPERATOR procedure are in the results section. B NATRIURETIC PEPTIDE STAT 10/19/2017 Acute on chronic combined Results for this 10:00 AM [employer] MACHINE OPERATOR systolic and diastolic procedure are in the heart failure results section. MAGNESIUM LEVEL STAT 10/19/2017 Chronic systolic heart Results for this 10:00 AM [employer] MACHINE OPERATOR failure procedure are in the results section. BASIC METABOLIC PANEL STAT 10/19/2017 Chronic systolic heart Results for this 10:00 AM [employer] MACHINE OPERATOR failure procedure are in the results section. XR CHEST 1 VW PORTABLE Routine 10/15/2017 Results for this 3:49 PM [employer] MACHINE OPERATOR procedure are in the results section. POC GLUCOSE Routine 10/15/2017 Results for this 11:38 AM [employer] MACHINE OPERATOR procedure are in the results section. POC GLUCOSE Routine 10/15/2017 Results for this 8:13 AM [employer] MACHINE OPERATOR procedure are in the results section. POC GLUCOSE Routine 10/15/2017 Results for this 5:26 AM [employer] MACHINE OPERATOR procedure are in the results section. POC GLUCOSE Routine 10/14/2017 Results for this 10:01 PM [employer] MACHINE OPERATOR procedure are in the results section. POC GLUCOSE Routine 10/14/2017 Results for this 5:18 PM [employer] MACHINE OPERATOR procedure are in the results section. POC GLUCOSE Routine 10/14/2017 Results for this 11:34 AM [employer] MACHINE OPERATOR procedure are in the results section. POC GLUCOSE Routine 10/14/2017 Results for this 7:41 AM [employer] MACHINE OPERATOR procedure are in the results section. POC GLUCOSE Routine 10/14/2017 Results for this 5:51 AM [employer] MACHINE OPERATOR procedure are in the results section. ZZESTIMATED GFR Routine 10/14/2017 Results for this 5:00 AM [employer] MACHINE OPERATOR procedure are in the results section. BASIC METABOLIC PANEL Routine 10/14/2017 Results for this 5:00 AM [employer] M[employer] MACHINE OPERATOR procedure are in the results section. HC COMPLETE BLD COUNT Routine 10/14/2017 Results for this W/AUTO DIFF 5:00 AM [employer] MACHINE OPERATOR procedure are in the results section. POC GLUCOSE Routine 10/13/2017 Results for this 9:13 PM [employer] MACHINE OPERATOR procedure are in the results section. POC GLUCOSE Routine 10/13/2017 Results for this 5:29 PM [employer] MACHINE OPERATOR procedure are in the results section. POC GLUCOSE Routine 10/13/2017 Results for this 11:23 AM [employer] MACHINE OPERATOR procedure are in the results section. POC GLUCOSE Routine 10/13/2017 Results for this 6:08 AM [employer] MACHINE OPERATOR procedure are in the results section. ZZESTIMATED GFR Routine 10/13/2017 Results for this 5:20 AM [employer] MACHINE OPERATOR procedure are in the results section. BASIC METABOLIC PANEL Routine 10/13/2017 Results for this 5:20 AM [employer] MACHINE OPERATOR procedure are in the results section. HC COMPLETE BLD COUNT Routine 10/13/2017 Results for this W/AUTO DIFF 5:20 AM [employer] MACHINE OPERATOR procedure are in the results section. POC GLUCOSE Routine 10/12/2017 Results for this 9:10 PM [employer] M[employer] MACHINE OPERATOR procedure are in the results section. POC GLUCOSE Routine 10/12/2017 Results for this 5:44 PM [employer] M[employer] MACHINE OPERATOR procedure are in the results section. POC GLUCOSE Routine 10/12/2017 Results for this 12:31 PM [employer] M[employer] MACHINE OPERATOR procedure are in the results section. POC GLUCOSE Routine 10/12/2017 Results for this 7:27 AM [employer] M[employer] MACHINE OPERATOR procedure are in the results section. ZZESTIMATED GFR Routine 10/12/2017 Results for this 5:30 AM [employer] M[employer] MACHINE OPERATOR procedure are in the results section. BASIC METABOLIC PANEL Routine 10/12/2017 Results for this 5:30 AM [employer] MACHINE OPERATOR procedure are in the results section. HC COMPLETE BLD COUNT Routine 10/12/2017 Results for this W/AUTO DIFF 5:30 AM [employer] MACHINE OPERATOR procedure are in the results section. POC GLUCOSE Routine 10/11/2017 Results for this 9:13 PM [employer] MACHINE OPERATOR procedure are in the results section. POC GLUCOSE Routine 10/11/2017 Results for this 6:01 PM [employer] MACHINE OPERATOR procedure are in the results section. POC GLUCOSE Routine 10/11/2017 Results for this 11:16 AM [employer] MACHINE OPERATOR procedure are in the results section. POC GLUCOSE Routine 10/11/2017 Results for this 7:32 AM [employer] MACHINE OPERATOR procedure are in the results section. ZZESTIMATED GFR Routine 10/11/2017 Results for this 5:59 AM [employer] MACHINE OPERATOR procedure are in the results section. BASIC METABOLIC PANEL Routine 10/11/2017 Results for this 5:59 AM [employer] MACHINE OPERATOR procedure are in the results section. HC COMPLETE BLD COUNT Routine 10/11/2017 Results for this W/AUTO DIFF 5:59 AM [employer] MACHINE OPERATOR procedure are in the results section. CT CHEST WO CONTRAST STAT 10/10/2017 Results for this 10:22 PM [employer] MACHINE OPERATOR procedure are in the results section. POC GLUCOSE Routine 10/10/2017 Results for this 8:39 PM [employer] MACHINE OPERATOR procedure are in the results section. POC GLUCOSE Routine 10/10/2017 Results for this 5:23 PM [employer] MACHINE OPERATOR procedure are in the results section. POTASSIUM LEVEL STAT 10/10/2017 Results for this 2:15 PM [employer] MACHINE OPERATOR procedure are in the results section. POC GLUCOSE Routine 10/10/2017 Results for this 11:19 AM [employer] MACHINE OPERATOR procedure are in the results section. POC GLUCOSE Routine 10/10/2017 Results for this 7:56 AM [employer] MACHINE OPERATOR procedure are in the results section. ZZESTIMATED GFR Routine 10/10/2017 Results for this 5:45 AM [employer] MACHINE OPERATOR procedure are in the results section. HC COMPLETE BLD COUNT Routine 10/10/2017 Results for this W/AUTO DIFF 5:45 AM [employer] MACHINE OPERATOR procedure are in the results section. BASIC METABOLIC PANEL Routine 10/10/2017 Results for this 5:45 AM [employer] MACHINE OPERATOR procedure are in the results section. POC GLUCOSE Routine 10/09/2017 Results for this 8:45 PM [employer] MACHINE OPERATOR procedure are in the results section. POC GLUCOSE Routine 10/09/2017 Results for this 5:21 PM [employer] MACHINE OPERATOR procedure are in the results section. POC GLUCOSE Routine 10/09/2017 Results for this 11:50 AM [employer] MACHINE OPERATOR procedure are in the results section. POC GLUCOSE Routine 10/09/2017 Results for this 6:51 AM [employer] MACHINE OPERATOR procedure are in the results section. POC GLUCOSE Routine 10/09/2017 Results for this 4:33 AM [employer] MACHINE OPERATOR procedure are in the results section. ZZESTIMATED GFR Routine 10/09/2017 Results for this 4:30 AM [employer] MACHINE OPERATOR procedure are in the results section. BASIC METABOLIC PANEL Routine 10/09/2017 Results for this 4:30 AM [employer] MACHINE OPERATOR procedure are in the results section. HC COMPLETE BLD COUNT Routine 10/09/2017 Results for this W/AUTO DIFF 4:30 AM [employer] MACHINE OPERATOR procedure are in the results section. POC GLUCOSE Routine 10/08/2017 Results for this 9:12 PM [employer] MACHINE OPERATOR procedure are in the results section. POC GLUCOSE Routine 10/08/2017 Results for this 5:34 PM [employer] MACHINE OPERATOR procedure are in the results section. POC GLUCOSE Routine 10/08/2017 Results for this 11:36 AM [employer] MACHINE OPERATOR procedure are in the results section. NM LUNG VENTILATION Routine 10/08/2017 Results for this PERFUSION 9:48 AM [employer] MACHINE OPERATOR procedure are in the results section. POC GLUCOSE Routine 10/08/2017 Results for this 7:19 AM [employer] MACHINE OPERATOR procedure are in the results section. HC COMPLETE BLD COUNT Routine 10/08/2017 Results for this W/AUTO DIFF 4:50 AM [employer] MACHINE OPERATOR procedure are in the results section. ZZESTIMATED GFR Routine 10/08/2017 Results for this 4:00 AM [employer] MACHINE OPERATOR procedure are in the results section. MAGNESIUM LEVEL Routine 10/08/2017 Results for this 4:00 AM [employer] MACHINE OPERATOR procedure are in the results section. BASIC METABOLIC PANEL Routine 10/08/2017 Results for this 4:00 AM [employer] MACHINE OPERATOR procedure are in the results section. POC GLUCOSE Routine 10/07/2017 Results for this 9:21 PM [employer] MACHINE OPERATOR procedure are in the results section. POC GLUCOSE Routine 10/07/2017 Results for this 3:59 PM [employer] MACHINE OPERATOR procedure are in the results section. POC GLUCOSE Routine 10/07/2017 Results for this 12:08 PM [employer] MACHINE OPERATOR procedure are in the results section. POC GLUCOSE Routine 10/07/2017 Results for this 8:37 AM [employer] MACHINE OPERATOR procedure are in the results section. SMEAR REVIEW Routine 10/07/2017 Results for this 4:15 AM [employer] MACHINE OPERATOR procedure are in the results section. B NATRIURETIC PEPTIDE Routine 10/07/2017 Results for this 4:15 AM [employer] MACHINE OPERATOR procedure are in the results section. HC COMPLETE BLD COUNT Routine 10/07/2017 Results for this W/AUTO DIFF 4:15 AM [employer] MACHINE OPERATOR procedure are in the results section. ZZESTIMATED GFR Routine 10/07/2017 Results for this 4:00 AM [employer] MACHINE OPERATOR procedure are in the results section. MAGNESIUM LEVEL Routine 10/07/2017 Results for this 4:00 AM [employer] MACHINE OPERATOR procedure are in the results section. BASIC METABOLIC PANEL Routine 10/07/2017 Results for this 4:00 AM [employer] MACHINE OPERATOR procedure are in the results section. POC GLUCOSE Routine 10/06/2017 Results for this 8:21 PM [employer] MACHINE OPERATOR procedure are in the results section. URINALYSIS SCREEN AND Routine 10/06/2017 Results for this MICROSCOPY, WITH REFLEX 5:40 PM [employer] MACHINE OPERATOR procedure are in the TO CULTURE results section. URINE CULTURE Routine 10/06/2017 Results for this 5:40 PM [employer] MACHINE OPERATOR procedure are in the results section. B NATRIURETIC PEPTIDE Routine 10/06/2017 Results for this 5:35 PM [employer] MACHINE OPERATOR procedure are in the results section. POC GLUCOSE Routine 10/06/2017 Results for this 5:09 PM [employer] MACHINE OPERATOR procedure are in the results section. BLOOD CULTURE, AEROBIC & Routine 10/06/2017 Results for this ANAEROBIC 2:00 PM [employer] MACHINE OPERATOR procedure are in the results section. POC GLUCOSE Routine 10/06/2017 Results for this 1:25 PM [employer] MACHINE OPERATOR procedure are in the results section. BLOOD CULTURE, AEROBIC & Routine 10/06/2017 Results for this ANAEROBIC 1:15 PM [employer] MACHINE OPERATOR procedure are in the results section. ECG 12-LEAD STAT 10/06/2017 Results for this 12:25 PM [employer] MACHINE OPERATOR procedure are in the results section. MAGNESIUM LEVEL Routine 10/06/2017 Results for this 7:53 AM [employer] MACHINE OPERATOR procedure are in the results section. ZZESTIMATED GFR Routine 10/06/2017 Results for this 7:53 AM [employer] MACHINE OPERATOR procedure are in the results section. HC COMPLETE BLD COUNT Routine 10/06/2017 Results for this W/AUTO DIFF 7:53 AM [employer] MACHINE OPERATOR procedure are in the results section. BASIC METABOLIC PANEL Routine 10/06/2017 Results for this 7:53 AM [employer] MACHINE OPERATOR procedure are in the results section. POC GLUCOSE Routine 10/06/2017 Results for this 7:24 AM [employer] MACHINE OPERATOR procedure are in the results section. POC GLUCOSE Routine 10/06/2017 Results for this 1:57 AM [employer] MACHINE OPERATOR procedure are in the results section. POC GLUCOSE Routine 10/05/2017 Results for this 8:41 PM [employer] MACHINE OPERATOR procedure are in the results section. POC GLUCOSE Routine 10/05/2017 Results for this 5:25 PM [employer] MACHINE OPERATOR procedure are in the results section. POC GLUCOSE Routine 10/05/2017 Results for this 11:58 AM [employer] MACHINE OPERATOR procedure are in the results section. POC GLUCOSE Routine 10/05/2017 Results for this 8:13 AM [employer] MACHINE OPERATOR procedure are in the results section. ZZESTIMATED GFR Routine 10/05/2017 Results for this 4:00 AM [employer] MACHINE OPERATOR procedure are in the results section. BASIC METABOLIC PANEL Routine 10/05/2017 Results for this 4:00 AM [employer] MACHINE OPERATOR procedure are in the results section. POC GLUCOSE Routine 10/04/2017 Results for this 8:28 PM [employer] MACHINE OPERATOR procedure are in the results section. POC GLUCOSE Routine 10/04/2017 Results for this 4:51 PM [employer] MACHINE OPERATOR procedure are in the results section. CV ECHO 2D FOLLOW UP OR STAT 10/04/2017 Results for this LIMITED STUDY 4:25 PM [employer] MACHINE OPERATOR procedure are in the results section. XR CHEST 1 VW PORTABLE STAT 10/04/2017 Results for this 3:58 PM [employer] MACHINE OPERATOR procedure are in the results section. ZZESTIMATED GFR Routine 10/04/2017 Results for this 2:22 PM [employer] MACHINE OPERATOR procedure are in the results section. PARTIAL THROMBOPLASTIN Routine 10/04/2017 Results for this TIME (PTT) 2:22 PM [employer] MACHINE OPERATOR procedure are in the results section. PROTHROMBIN TIME WITH INR Routine 10/04/2017 Results for this 2:22 PM [employer] MACHINE OPERATOR procedure are in the results section. PHOSPHORUS LEVEL Routine 10/04/2017 Results for this 2:22 PM [employer] MACHINE OPERATOR procedure are in the results section. TROPONIN Routine 10/04/2017 Results for this 2:22 PM [employer] MACHINE OPERATOR procedure are in the results section. MAGNESIUM LEVEL Routine 10/04/2017 Results for this 2:22 PM [employer] MACHINE OPERATOR procedure are in the results section. BASIC METABOLIC PANEL Routine 10/04/2017 Results for this 2:22 PM [employer] MACHINE OPERATOR procedure are in the results section. ECG 12-LEAD Routine 10/04/2017 Results for this 2:08 PM [employer] MACHINE OPERATOR procedure are in the results section. ECG PRE/POST OP Routine 10/04/2017 Results for this 11:53 AM [employer] MACHINE OPERATOR procedure are in the results section. POC GLUCOSE Routine 10/04/2017 Results for this 11:47 AM [employer] MACHINE OPERATOR procedure are in the results section. POC GLUCOSE Routine 10/04/2017 Results for this 8:08 AM [employer] MACHINE OPERATOR procedure are in the results section. ZZESTIMATED GFR Routine 10/04/2017 Results for this 4:00 AM [employer] MACHINE OPERATOR procedure are in the results section. BASIC METABOLIC PANEL Routine 10/04/2017 Results for this 4:00 AM [employer] MACHINE OPERATOR procedure are in the results section. POC GLUCOSE Routine 10/03/2017 Results for this 8:21 PM [employer] MACHINE OPERATOR procedure are in the results section. POC GLUCOSE Routine 10/03/2017 Results for this 3:55 PM [employer] MACHINE OPERATOR procedure are in the results section. XR CHEST 1 VW PORTABLE Routine 10/03/2017 Results for this 2:31 PM [employer] MACHINE OPERATOR procedure are in the results section. POC GLUCOSE Routine 10/03/2017 Results for this 1:41 PM [employer] MACHINE OPERATOR procedure are in the results section. EP AICD IMPLANT SINGLE Routine 10/03/2017 Results for this DUAL BI VENT 11:27 AM [employer] MACHINE OPERATOR procedure are in the results section. POC GLUCOSE Routine 10/03/2017 Results for this 7:52 AM [employer] MACHINE OPERATOR procedure are in the results section. PROTHROMBIN TIME WITH INR Routine 10/03/2017 Results for this 4:15 AM [employer] MACHINE OPERATOR procedure are in the results section. PARTIAL THROMBOPLASTIN Routine 10/03/2017 Results for this TIME (PTT) 4:15 AM [employer] MACHINE OPERATOR procedure are in the results section. ZZESTIMATED GFR Routine 10/03/2017 Results for this 4:15 AM [employer] MACHINE OPERATOR procedure are in the results section. BASIC METABOLIC PANEL Routine 10/03/2017 Results for this 4:15 AM [employer] MACHINE OPERATOR procedure are in the results section. HC COMPLETE BLD COUNT Routine 10/03/2017 Results for this W/AUTO DIFF 4:15 AM [employer] MACHINE OPERATOR procedure are in the results section. POC GLUCOSE Routine 10/02/2017 Results for this 8:32 PM [employer] MACHINE OPERATOR procedure are in the results section. US DUPLEX VENOUS UPPER Routine 10/02/2017 Results for this EXTREMITY BILATERAL 5:46 PM [employer] MACHINE OPERATOR procedure are in the results section. ECHOCARDIOGRAM 2D Routine 10/02/2017 Results for this COMPLETE W MMODE SPECTRAL 4:21 PM [employer] MACHINE OPERATOR procedure are in the COLOR DOPPLER ([id number]) results section. POC GLUCOSE Routine 10/02/2017 Results for this 4:03 PM [employer] MACHINE OPERATOR procedure are in the results section. POC GLUCOSE Routine 10/02/2017 Results for this 11:30 AM [employer] MACHINE OPERATOR procedure are in the results section. ZZESTIMATED GFR Routine 10/02/2017 Results for this 8:41 AM [employer] MACHINE OPERATOR procedure are in the results section. BASIC METABOLIC PANEL Routine 10/02/2017 Results for this 8:41 AM [employer] MACHINE OPERATOR procedure are in the results section. POC GLUCOSE Routine 10/02/2017 Results for this 7:46 AM [employer] MACHINE OPERATOR procedure are in the results section. ARTERIAL BLOOD GAS Routine 10/02/2017 Results for this 7:36 AM [employer] MACHINE OPERATOR procedure are in the results section. HC COMPLETE BLD COUNT Routine 10/02/2017 Results for this W/AUTO DIFF 5:45 AM [employer] MACHINE OPERATOR procedure are in the results section. ZZESTIMATED GFR Routine 10/02/2017 Results for this 4:00 AM [employer] MACHINE OPERATOR procedure are in the results section. MAGNESIUM LEVEL Routine 10/02/2017 Results for this 4:00 AM [employer] MACHINE OPERATOR procedure are in the results section. BASIC METABOLIC PANEL Routine 10/02/2017 Results for this 4:00 AM [employer] MACHINE OPERATOR procedure are in the results section. POC GLUCOSE Routine 10/01/2017 Results for this 8:54 PM [employer] MACHINE OPERATOR procedure are in the results section. POC GLUCOSE Routine 10/01/2017 Results for this 3:52 PM [employer] MACHINE OPERATOR procedure are in the results section. POC GLUCOSE Routine 10/01/2017 Results for this 1:05 PM [employer] procedure are in the results section. POC GLUCOSE Routine 10/01/2017 Results for this 8:45 AM [employer] procedure are in the results section. PHOSPHORUS LEVEL Routine 10/01/2017 Results for this 3:52 AM [employer] procedure are in the results section. ZZESTIMATED GFR Routine 10/01/2017 Results for this 3:52 AM [employer] procedure are in the results section. MAGNESIUM LEVEL Routine 10/01/2017 Results for this 3:52 AM [employer] procedure are in the results section. BASIC METABOLIC PANEL Routine 10/01/2017 Results for this 3:52 AM [employer] procedure are in the results section. ARTERIAL BLOOD GAS Routine 10/01/2017 Results for this 3:33 AM [employer] procedure are in the results section. HC COMPLETE BLD COUNT Routine 10/01/2017 Results for this W/AUTO DIFF 3:30 AM [employer] procedure are in the results section. B NATRIURETIC PEPTIDE Routine 10/01/2017 Results for this 3:30 AM [employer] procedure are in the results section. ARTERIAL BLOOD GAS STAT 10/01/2017 Results for this 12:15 AM [employer] procedure are in the results section. POC GLUCOSE Routine 09/30/2017 Results for this 9:00 PM [employer] procedure are in the results section. ARTERIAL BLOOD GAS Timed 09/30/2017 Results for this 8:16 PM [employer] procedure are in the results section. POC GLUCOSE Routine 09/30/2017 Results for this 5:27 PM [employer] procedure are in the results section. ARTERIAL BLOOD GAS Timed 09/30/2017 Results for this 5:00 PM [employer] procedure are in the results section. URINALYSIS, AUTOMATED Routine 09/30/2017 Results for this WITH MICROSCOPY 4:00 PM [employer] procedure are in the results section. URINE DRUGS OF ABUSE Routine 09/30/2017 Results for this SCREEN 4:00 PM [employer] procedure are in the results section. RESPIRATORY PATHOGEN Routine 09/30/2017 Results for this PANEL 3:22 PM [employer] procedure are in the results section. XR CHEST 1 VW PORTABLE STAT 09/30/2017 Results for this 2:29 PM [employer] procedure are in the results section. HEMOGLOBIN A1C STAT 09/30/2017 Results for this 1:17 PM [employer] procedure are in the results section. ARTERIAL BLOOD GAS STAT 09/30/2017 Results for this 12:55 PM [employer] procedure are in the results section. TROPONIN STAT 09/30/2017 Results for this 12:36 PM [employer] procedure are in the results section. POC GLUCOSE Routine 09/30/2017 Results for this 11:21 AM [employer] procedure are in the results section. POC GLUCOSE Routine 09/30/2017 Results for this 7:30 AM [employer] procedure are in the results section. ZZESTIMATED GFR Routine 09/30/2017 Results for this 4:30 AM [employer] procedure are in the results section. MAGNESIUM LEVEL Routine 09/30/2017 Results for this 4:30 AM [employer] procedure are in the results section. B NATRIURETIC PEPTIDE Routine 09/30/2017 Results for this 4:30 AM [employer] procedure are in the results section. BASIC METABOLIC PANEL Routine 09/30/2017 Results for this 4:30 AM [employer] procedure are in the results section. POC GLUCOSE Routine 09/30/2017 Results for this 3:14 AM [employer] procedure are in the results section. TROPONIN Timed 09/30/2017 Results for this 1:45 AM [employer] procedure are in the results section. XR CHEST 1 VW PORTABLE STAT 09/30/2017 Results for this 12:54 AM [employer] procedure are in the results section. CT CRITICAL CARE, E/M Routine 09/30/2017 Results for this 30-74 MINUTES 12:25 AM [employer] procedure are in the results section. ZZESTIMATED GFR STAT 09/29/2017 Results for this 9:56 PM [employer]INE [employer] procedure are in the results section. B NATRIURETIC PEPTIDE STAT 09/29/2017 Results for this 9:56 PM [employer]INE [employer] procedure are in the results section. TROPONIN STAT 09/29/2017 Results for this 9:56 PM [employer] procedure are in the results section. CREATINE KINASE, TOTAL STAT 09/29/2017 Results for this (CPK) 9:56 PM [employer] procedure are in the results section. COMPREHENSIVE METABOLIC STAT 09/29/2017 Results for this PANEL 9:56 PM [employer] procedure are in the results section. PROTHROMBIN TIME WITH INR STAT 09/29/2017 Results for this 9:56 PM [employer]INE [employer] procedure are in the results section. HC COMPLETE BLD COUNT STAT 09/29/2017 Results for this W/AUTO DIFF 9:56 PM [employer]INE [employer]PER[employer] procedure are in the results section. ECG 12-LEAD STAT 09/29/2017 Results for this 7:29 PM [employer] procedure are in the results section. ZZESTIMATED GFR Routine 09/05/2017 Results for this 5:38 AM [employer] procedure are in the results section. B NATRIURETIC PEPTIDE Routine 09/05/2017 Results for this 5:38 AM [employer]INE [employer] procedure are in the results section. BASIC METABOLIC PANEL Routine 09/05/2017 Results for this 5:38 AM [employer]INE [employer] procedure are in the results section. ZZESTIMATED GFR STAT 09/04/2017 Results for this 12:11 PM [employer] procedure are in the results section. BASIC METABOLIC PANEL STAT 09/04/2017 Results for this 12:11 PM [employer]INE [employer]PER[employer] procedure are in the results section. ZZESTIMATED GFR Routine 09/03/2017 Results for this 5:59 AM [employer] procedure are in the results section. MAGNESIUM LEVEL Routine 09/03/2017 Results for this 5:59 AM [employer]INE [employer]PER[employer] procedure are in the results section. BASIC METABOLIC PANEL Routine 09/03/2017 Results for this 5:59 AM [employer]INE [employer]PER[employer] procedure are in the results section. ZZESTIMATED GFR Routine 09/02/2017 Results for this 5:40 AM [employer]PER[employer] procedure are in the results section. BASIC METABOLIC PANEL Routine 09/02/2017 Results for this 5:40 AM [employer]INE [employer]PER[employer] procedure are in the results section. HC COMPLETE BLD COUNT Routine 09/02/2017 Results for this W/AUTO DIFF 5:40 AM [employer] procedure are in the results section. POC GLUCOSE Routine 09/01/2017 Results for this 5:06 PM CDT procedure are in the results section. POC GLUCOSE Routine 09/01/2017 Results for this 11:14 AM CDT procedure are in the results section. POC GLUCOSE Routine 09/01/2017 Results for this 10:17 AM CDT procedure are in the results section. ZZESTIMATED GFR Routine 09/01/2017 Results for this 4:00 AM CDT procedure are in the results section. BASIC METABOLIC PANEL Routine 09/01/2017 Results for this 4:00 AM CDT procedure are in the results section. HC COMPLETE BLD COUNT Routine 09/01/2017 Results for this W/AUTO DIFF 3:30 AM CDT procedure are in the results section. US DUPLEX VENOUS UPPER STAT 08/31/2017 Results for this EXTREMITY BILATERAL 8:45 PM CDT procedure are in the results section. URINE DRUGS OF ABUSE Routine 08/31/2017 Results for this SCREEN 4:54 PM CDT procedure are in the results section. CT CRITICAL CARE, E/M Routine 08/31/2017 Results for this 30-74 MINUTES 10:46 AM CDT procedure are in the results section. HC COMPLETE BLD COUNT Routine 08/31/2017 Results for this W/AUTO DIFF 7:20 AM CDT procedure are in the results section. B NATRIURETIC PEPTIDE Routine 08/31/2017 Results for this 4:15 AM CDT procedure are in the results section. ZZESTIMATED GFR Routine 08/31/2017 Results for this 4:00 AM CDT procedure are in the results section. TROPONIN Routine 08/31/2017 Results for this 4:00 AM CDT procedure are in the results section. BASIC METABOLIC PANEL Routine 08/31/2017 Results for this 4:00 AM CDT procedure are in the results section. ZZESTIMATED GFR Routine 08/30/2017 Results for this 10:13 PM CDT procedure are in the results section. B NATRIURETIC PEPTIDE Routine 08/30/2017 Results for this 10:13 PM CDT procedure are in the results section. TROPONIN Routine 08/30/2017 Results for this 10:13 PM CDT procedure are in the results section. COMPREHENSIVE METABOLIC Routine 08/30/2017 Results for this PANEL 10:13 PM CDT procedure are in the results section. PARTIAL THROMBOPLASTIN Routine 08/30/2017 Results for this TIME (PTT) 10:13 PM CDT procedure are in the results section. PROTHROMBIN TIME WITH INR Routine 08/30/2017 Results for this 10:13 PM CDT procedure are in the results section. HC COMPLETE BLD COUNT Routine 08/30/2017 Results for this W/AUTO DIFF 10:13 PM CDT procedure are in the results section. XR CHEST 1 VW PORTABLE STAT 08/30/2017 Results for this 9:47 PM CDT procedure are in the results section. ECG 12-LEAD STAT 08/30/2017 Results for this 8:40 PM CDT procedure are in the results section. POC GLUCOSE Routine 08/09/2017 Results for this 4:39 PM CDT procedure are in the results section. POC GLUCOSE Routine 08/09/2017 Results for this 12:34 PM CDT procedure are in the results section. POC GLUCOSE Routine 08/09/2017 Results for this 9:29 AM CDT procedure are in the results section. ZZESTIMATED GFR Routine 08/09/2017 Results for this 4:00 AM CDT procedure are in the results section. URIC ACID LEVEL Routine 08/09/2017 Results for this 4:00 AM CDT procedure are in the results section. PHOSPHORUS LEVEL Routine 08/09/2017 Results for this 4:00 AM CDT procedure are in the results section. MAGNESIUM LEVEL Routine 08/09/2017 Results for this 4:00 AM CDT procedure are in the results section. BASIC METABOLIC PANEL Routine 08/09/2017 Results for this 4:00 AM CDT procedure are in the results section. POC GLUCOSE Routine 08/08/2017 Results for this 8:32 PM CDT procedure are in the results section. POC GLUCOSE Routine 08/08/2017 Results for this 5:50 PM CDT procedure are in the results section. POC GLUCOSE Routine 08/08/2017 Results for this 1:08 PM CDT procedure are in the results section. PARATHYROID HORMONE Routine 08/08/2017 Results for this 12:24 PM CDT procedure are in the results section. OSMOLALITY, SERUM Routine 08/08/2017 Results for this 12:24 PM CDT procedure are in the results section. OSMOLALITY, URINE Routine 08/08/2017 Results for this 12:24 PM CDT procedure are in the results section. RENIN ACTIVITY Routine 08/08/2017 Results for this 12:24 PM CDT procedure are in the results section. THYROID STIMULATING Routine 08/08/2017 Results for this HORMONE 12:24 PM CDT procedure are in the results section. HEMOGLOBIN A1C Routine 08/08/2017 Results for this 12:24 PM CDT procedure are in the results section. URINE EOSINOPHILS Routine 08/08/2017 Results for this 12:24 PM CDT procedure are in the results section. SODIUM LEVEL, URINE, Routine 08/08/2017 Results for this RANDOM 12:24 PM CDT procedure are in the results section. PROTEIN, URINE, RANDOM Routine 08/08/2017 Results for this 12:24 PM CDT procedure are in the results section. POTASSIUM, URINE, RANDOM Routine 08/08/2017 Results for this 12:24 PM CDT procedure are in the results section. CREATININE LEVEL, URINE, Routine 08/08/2017 Results for this RANDOM 12:24 PM CDT procedure are in the results section. CHLORIDE LEVEL, URINE, Routine 08/08/2017 Results for this RANDOM 12:24 PM CDT procedure are in the results section. ALDOSTERONE, SERUM Routine 08/08/2017 Results for this 12:24 PM CDT procedure are in the results section. CONSULT CARDIAC REHAB Routine 08/08/2017 PHASE 1 12:05 PM CDT POC GLUCOSE Routine 08/08/2017 Results for this 8:43 AM CDT procedure are in the results section. ZZESTIMATED GFR Routine 08/08/2017 Results for this 4:15 AM CDT procedure are in the results section. BASIC METABOLIC PANEL Routine 08/08/2017 Results for this 4:15 AM CDT procedure are in the results section. CBC HEMOGRAM Routine 08/08/2017 Results for this 4:15 AM CDT procedure are in the results section. ZZESTIMATED GFR Routine 08/07/2017 Results for this 6:45 AM CDT procedure are in the results section. COMPREHENSIVE METABOLIC Routine 08/07/2017 Results for this PANEL 6:45 AM CDT procedure are in the results section. CBC HEMOGRAM Routine 08/07/2017 Results for this 6:45 AM CDT procedure are in the results section. HC COMPLETE BLD COUNT Routine 08/06/2017 Results for this W/AUTO DIFF 5:56 AM CDT procedure are in the results section. ZZESTIMATED GFR Routine 08/06/2017 Results for this 4:00 AM CDT procedure are in the results section. BASIC METABOLIC PANEL Routine 08/06/2017 Results for this 4:00 AM CDT procedure are in the results section. POC GLUCOSE Routine 08/05/2017 Results for this 2:17 PM CDT procedure are in the results section. ZZESTIMATED GFR Routine 08/05/2017 Results for this 4:25 AM CDT procedure are in the results section. HC COMPLETE BLD COUNT Routine 08/05/2017 Results for this W/AUTO DIFF 4:25 AM CDT procedure are in the results section. BASIC METABOLIC PANEL Routine 08/05/2017 Results for this 4:25 AM CDT procedure are in the results section. ZZESTIMATED GFR Routine 08/04/2017 Results for this 4:40 AM CDT procedure are in the results section. HC COMPLETE BLD COUNT Routine 08/04/2017 Results for this W/AUTO DIFF 4:40 AM CDT procedure are in the results section. BASIC METABOLIC PANEL Routine 08/04/2017 Results for this 4:40 AM CDT procedure are in the results section. CT ABDOMEN PELVIS WO Routine 08/03/2017 Results for this CONTRAST 8:26 PM CDT procedure are in the results section. ZZESTIMATED GFR Routine 08/03/2017 Results for this 4:00 AM CDT procedure are in the results section. MAGNESIUM LEVEL Routine 08/03/2017 Results for this 4:00 AM CDT procedure are in the results section. BASIC METABOLIC PANEL Routine 08/03/2017 Results for this 4:00 AM CDT procedure are in the results section. ZZESTIMATED GFR Routine 08/02/2017 Results for this 4:10 AM CDT procedure are in the results section. MAGNESIUM LEVEL Routine 08/02/2017 Results for this 4:10 AM CDT procedure are in the results section. BASIC METABOLIC PANEL Routine 08/02/2017 Results for this 4:10 AM CDT procedure are in the results section. HC COMPLETE BLD COUNT Routine 08/02/2017 Results for this W/AUTO DIFF 4:10 AM CDT procedure are in the results section. CT CRITICAL CARE, E/M Routine 08/01/2017 Results for this 30-74 MINUTES 8:54 AM CDT procedure are in the results section. URINALYSIS, AUTOMATED Routine 08/01/2017 Results for this WITH MICROSCOPY 7:10 AM CDT procedure are in the results section. ZZESTIMATED GFR Routine 08/01/2017 Results for this 4:22 AM CDT procedure are in the results section. MAGNESIUM LEVEL Routine 08/01/2017 Results for this 4:22 AM CDT procedure are in the results section. BASIC METABOLIC PANEL Routine 08/01/2017 Results for this 4:22 AM CDT procedure are in the results section. B NATRIURETIC PEPTIDE Routine 08/01/2017 Results for this 4:22 AM CDT procedure are in the results section. HC COMPLETE BLD COUNT Routine 08/01/2017 Results for this W/AUTO DIFF 4:22 AM CDT procedure are in the results section. XR ABDOMEN ACUTE INC STAT 07/31/2017 Results for this CHEST 6:34 PM CDT procedure are in the results section. ZZESTIMATED GFR STAT 07/31/2017 Results for this 4:25 PM CDT procedure are in the results section. B NATRIURETIC PEPTIDE STAT 07/31/2017 Results for this 4:25 PM CDT procedure are in the results section. TROPONIN STAT 07/31/2017 Results for this 4:25 PM CDT procedure are in the results section. CREATINE KINASE, TOTAL STAT 07/31/2017 Results for this (CPK) 4:25 PM CDT procedure are in the results section. COMPREHENSIVE METABOLIC STAT 07/31/2017 Results for this PANEL 4:25 PM CDT procedure are in the results section. PROTHROMBIN TIME WITH INR STAT 07/31/2017 Results for this 4:25 PM CDT procedure are in the results section. HC COMPLETE BLD COUNT STAT 07/31/2017 Results for this W/AUTO DIFF 4:25 PM CDT procedure are in the results section. ECG 12-LEAD STAT 07/31/2017 Results for this 4:14 PM CDT procedure are in the results section. US DUPLEX VENOUS UPPER Routine 07/20/2017 Results for this EXTREMITY BILATERAL 5:15 PM CDT procedure are in the results section. POC GLUCOSE Routine 07/19/2017 Results for this 12:07 PM CDT procedure are in the results section. POC GLUCOSE Routine 07/19/2017 Results for this 7:17 AM CDT procedure are in the results section. XR CHEST 1 VW PORTABLE STAT 07/19/2017 Results for this 7:02 AM CDT procedure are in the results section. POC GLUCOSE Routine 07/19/2017 Results for this 4:35 AM CDT procedure are in the results section. HEPATIC FUNCTION PANEL Routine 07/19/2017 Results for this 1:20 AM CDT procedure are in the results section. ZZESTIMATED GFR Routine 07/19/2017 Results for this 1:20 AM CDT procedure are in the results section. MAGNESIUM LEVEL Routine 07/19/2017 Results for this 1:20 AM CDT procedure are in the results section. PHOSPHORUS LEVEL Routine 07/19/2017 Results for this 1:20 AM CDT procedure are in the results section. IONIZED CALCIUM Routine 07/19/2017 Results for this 1:20 AM CDT procedure are in the results section. BASIC METABOLIC PANEL Routine 07/19/2017 Results for this 1:20 AM CDT procedure are in the results section. HC COMPLETE BLD COUNT Routine 07/19/2017 Results for this W/AUTO DIFF 1:17 AM CDT procedure are in the results section. POC GLUCOSE Routine 07/18/2017 Results for this 9:31 PM CDT procedure are in the results section. POC GLUCOSE Routine 07/18/2017 Results for this 4:05 PM CDT procedure are in the results section. ZZESTIMATED GFR Timed 07/18/2017 Results for this 3:37 PM CDT procedure are in the results section. PHOSPHORUS LEVEL Timed 07/18/2017 Results for this 3:37 PM CDT procedure are in the results section. MAGNESIUM LEVEL Timed 07/18/2017 Results for this 3:37 PM CDT procedure are in the results section. IONIZED CALCIUM Timed 07/18/2017 Results for this 3:37 PM CDT procedure are in the results section. BASIC METABOLIC PANEL Timed 07/18/2017 Results for this 3:37 PM CDT procedure are in the results section. POC GLUCOSE Routine 07/18/2017 Results for this 12:11 PM CDT procedure are in the results section. ARTERIAL BLOOD GAS Routine 07/18/2017 Results for this 10:37 AM CDT procedure are in the results section. POC GLUCOSE Routine 07/18/2017 Results for this 8:06 AM CDT procedure are in the results section. XR CHEST 1 VW PORTABLE STAT 07/18/2017 Results for this 7:33 AM CDT procedure are in the results section. POC GLUCOSE Routine 07/18/2017 Results for this 5:01 AM CDT procedure are in the results section. IONIZED CALCIUM Routine 07/18/2017 Results for this 3:08 AM CDT procedure are in the results section. ZZESTIMATED GFR Routine 07/18/2017 Results for this 3:08 AM CDT procedure are in the results section. HEPATIC FUNCTION PANEL Routine 07/18/2017 Results for this 3:08 AM CDT procedure are in the results section. URIC ACID LEVEL Routine 07/18/2017 Results for this 3:08 AM CDT procedure are in the results section. PHOSPHORUS LEVEL Routine 07/18/2017 Results for this 3:08 AM CDT procedure are in the results section. MAGNESIUM LEVEL Routine 07/18/2017 Results for this 3:08 AM CDT procedure are in the results section. BASIC METABOLIC PANEL Routine 07/18/2017 Results for this 3:08 AM CDT procedure are in the results section. HC COMPLETE BLD COUNT Routine 07/18/2017 Results for this W/AUTO DIFF 3:03 AM CDT procedure are in the results section. ARTERIAL BLOOD GAS Routine 07/18/2017 Results for this 3:00 AM CDT procedure are in the results section. PROTHROMBIN TIME WITH INR Routine 07/18/2017 Results for this 3:00 AM CDT procedure are in the results section. PARTIAL THROMBOPLASTIN Routine 07/18/2017 Results for this TIME (PTT) 3:00 AM CDT procedure are in the results section. POC GLUCOSE Routine 07/18/2017 Results for this 12:51 AM CDT procedure are in the results section. POC GLUCOSE Routine 07/17/2017 Results for this 9:29 PM CDT procedure are in the results section. POTASSIUM LEVEL Routine 07/17/2017 Results for this 9:06 PM CDT procedure are in the results section. PHOSPHORUS LEVEL Routine 07/17/2017 Results for this 9:06 PM CDT procedure are in the results section. MAGNESIUM LEVEL Routine 07/17/2017 Results for this 9:06 PM CDT procedure are in the results section. ZZESTIMATED GFR STAT 07/17/2017 Results for this 7:40 PM CDT procedure are in the results section. PHOSPHORUS LEVEL STAT 07/17/2017 Results for this 7:40 PM CDT procedure are in the results section. MAGNESIUM LEVEL STAT 07/17/2017 Results for this 7:40 PM CDT procedure are in the results section. BASIC METABOLIC PANEL STAT 07/17/2017 Results for this 7:40 PM CDT procedure are in the results section. HC COMPLETE BLD COUNT STAT 07/17/2017 Results for this W/AUTO DIFF 6:15 PM CDT procedure are in the results section. ZZESTIMATED GFR STAT 07/17/2017 Results for this 6:11 PM CDT procedure are in the results section. IONIZED CALCIUM STAT 07/17/2017 Results for this 6:11 PM CDT procedure are in the results section. PHOSPHORUS LEVEL STAT 07/17/2017 Results for this 6:11 PM CDT procedure are in the results section. MAGNESIUM LEVEL STAT 07/17/2017 Results for this 6:11 PM CDT procedure are in the results section. BASIC METABOLIC PANEL STAT 07/17/2017 Results for this 6:11 PM CDT procedure are in the results section. ARTERIAL BLOOD GAS Timed 07/17/2017 Results for this 4:57 PM CDT procedure are in the results section. POC GLUCOSE Routine 07/17/2017 Results for this 3:58 PM CDT procedure are in the results section. XR ABDOMEN 1 VW PORTABLE STAT 07/17/2017 Results for this 3:06 PM CDT procedure are in the results section. ECG 12-LEAD STAT 07/17/2017 Results for this 2:07 PM CDT procedure are in the results section. URINE CULTURE Routine 07/17/2017 Results for this 1:11 PM CDT procedure are in the results section. URINALYSIS SCREEN AND Routine 07/17/2017 Results for this MICROSCOPY, WITH REFLEX 1:00 PM CDT procedure are in the TO CULTURE results section. SURGICAL PATHOLOGY Routine 07/17/2017 Results for this REQUEST 12:10 PM CDT procedure are in the results section. POC GLUCOSE Routine 07/17/2017 Results for this 12:10 PM CDT procedure are in the results section. XR CHEST 1 VW PORTABLE STAT 07/17/2017 Results for this 11:19 AM CDT procedure are in the results section. POTASSIUM LEVEL Routine 07/17/2017 Results for this 11:19 AM CDT procedure are in the results section. POC GLUCOSE Routine 07/17/2017 Results for this 10:11 AM CDT procedure are in the results section. IONIZED CALCIUM, ARTERIAL STAT 07/17/2017 Results for this 10:10 AM CDT procedure are in the results section. ZZESTIMATED GFR STAT 07/17/2017 Results for this 10:10 AM CDT procedure are in the results section. ARTERIAL BLOOD GAS STAT 07/17/2017 Results for this 10:10 AM CDT procedure are in the results section. PARTIAL THROMBOPLASTIN STAT 07/17/2017 Results for this TIME (PTT) 10:10 AM CDT procedure are in the results section. PROTHROMBIN TIME WITH INR STAT 07/17/2017 Results for this 10:10 AM CDT procedure are in the results section. HC COMPLETE BLD COUNT STAT 07/17/2017 Results for this W/AUTO DIFF 10:10 AM CDT procedure are in the results section. PHOSPHORUS LEVEL STAT 07/17/2017 Results for this 10:10 AM CDT procedure are in the results section. MAGNESIUM LEVEL STAT 07/17/2017 Results for this 10:10 AM CDT procedure are in the results section. LACTIC ACID LEVEL STAT 07/17/2017 Results for this 10:10 AM CDT procedure are in the results section. BASIC METABOLIC PANEL STAT 07/17/2017 Results for this 10:10 AM CDT procedure are in the results section. CT AN ELECTIVE Routine 07/17/2017 ENDOTRACHEAL AIRWAY 8:36 AM CDT Procedure Note - Lizzy Salazar, VISE HAND - 07/17/2017 8:14 AM CDT Airway Date/Time: [...] at Approach: 1 CHOLECYSTECTOMY, 07/17/2017 ACUTE CHOLECYSTITIS LAPAROSCOPIC, WITH 7:30 AM CDT CHOLANGIOGRAPHY ZZESTIMATED GFR Routine 07/17/2017 Results for this 4:50 AM CDT procedure are in the results section. URIC ACID LEVEL Routine 07/17/2017 Results for this 4:50 AM CDT procedure are in the results section. PHOSPHORUS LEVEL Routine 07/17/2017 Results for this 4:50 AM CDT procedure are in the results section. MAGNESIUM LEVEL Routine 07/17/2017 Results for this 4:50 AM CDT procedure are in the results section. BASIC METABOLIC PANEL Routine 07/17/2017 Results for this 4:50 AM CDT procedure are in the results section. PROTHROMBIN TIME WITH INR Routine 07/17/2017 Results for this 4:30 AM CDT procedure are in the results section. TYPE AND SCREEN Routine 07/17/2017 Results for this 4:30 AM CDT procedure are in the results section. HC COMPLETE BLD COUNT Routine 07/17/2017 Results for this W/AUTO DIFF 4:30 AM CDT procedure are in the results section. POC GLUCOSE Routine 07/16/2017 Results for this 9:22 PM CDT procedure are in the results section. POC GLUCOSE Routine 07/16/2017 Results for this 3:23 PM CDT procedure are in the results section. POC GLUCOSE Routine 07/16/2017 Results for this 11:37 AM CDT procedure are in the results section. URINE EOSINOPHILS Routine 07/16/2017 Results for this 8:40 AM CDT procedure are in the results section. URINALYSIS SCREEN AND Routine 07/16/2017 Results for this MICROSCOPY, WITH REFLEX 8:40 AM CDT procedure are in the TO CULTURE results section. OSMOLALITY, URINE Routine 07/16/2017 Results for this 8:40 AM CDT procedure are in the results section. CHLORIDE LEVEL, URINE, Routine 07/16/2017 Results for this RANDOM 8:40 AM CDT procedure are in the results section. PROTEIN, URINE, RANDOM Routine 07/16/2017 Results for this 8:40 AM CDT procedure are in the results section. POTASSIUM, URINE, RANDOM Routine 07/16/2017 Results for this 8:40 AM CDT procedure are in the results section. SODIUM LEVEL, URINE, Routine 07/16/2017 Results for this RANDOM 8:40 AM CDT procedure are in the results section. CREATININE LEVEL, URINE, Routine 07/16/2017 Results for this RANDOM 8:40 AM CDT procedure are in the results section. URINE CULTURE Routine 07/16/2017 Results for this 8:40 AM CDT procedure are in the results section. POC GLUCOSE Routine 07/16/2017 Results for this 7:08 AM CDT procedure are in the results section. B NATRIURETIC PEPTIDE Routine 07/16/2017 Results for this 5:00 AM CDT procedure are in the results section. HC COMPLETE BLD COUNT Routine 07/16/2017 Results for this W/AUTO DIFF 5:00 AM CDT procedure are in the results section. POC GLUCOSE Routine 07/16/2017 Results for this 4:06 AM CDT procedure are in the results section. ZZESTIMATED GFR Routine 07/16/2017 Results for this 4:00 AM CDT procedure are in the results section. URIC ACID LEVEL Routine 07/16/2017 Results for this 4:00 AM CDT procedure are in the results section. PHOSPHORUS LEVEL Routine 07/16/2017 Results for this 4:00 AM CDT procedure are in the results section. MAGNESIUM LEVEL Routine 07/16/2017 Results for this 4:00 AM CDT procedure are in the results section. BASIC METABOLIC PANEL Routine 07/16/2017 Results for this 4:00 AM CDT procedure are in the results section. POC GLUCOSE Routine 07/15/2017 Results for this 9:06 PM CDT procedure are in the results section. POC GLUCOSE Routine 07/15/2017 Results for this 5:08 PM CDT procedure are in the results section. POC GLUCOSE Routine 07/15/2017 Results for this 3:25 PM CDT procedure are in the results section. POC GLUCOSE Routine 07/15/2017 Results for this 11:15 AM CDT procedure are in the results section. POC GLUCOSE Routine 07/15/2017 Results for this 7:31 AM CDT procedure are in the results section. POC GLUCOSE Routine 07/15/2017 Results for this 5:00 AM CDT procedure are in the results section. B NATRIURETIC PEPTIDE Routine 07/15/2017 Results for this 5:00 AM CDT procedure are in the results section. HC COMPLETE BLD COUNT Routine 07/15/2017 Results for this W/AUTO DIFF 5:00 AM CDT procedure are in the results section. POC GLUCOSE Routine 07/15/2017 Results for this 4:17 AM CDT procedure are in the results section. ZZESTIMATED GFR Routine 07/15/2017 Results for this 4:00 AM CDT procedure are in the results section. PHOSPHORUS LEVEL Routine 07/15/2017 Results for this 4:00 AM CDT procedure are in the results section. MAGNESIUM LEVEL Routine 07/15/2017 Results for this 4:00 AM CDT procedure are in the results section. COMPREHENSIVE METABOLIC Routine 07/15/2017 Results for this PANEL 4:00 AM CDT procedure are in the results section. POC GLUCOSE Routine 07/14/2017 Results for this 9:21 PM CDT procedure are in the results section. POC GLUCOSE Routine 07/14/2017 Results for this 3:23 PM CDT procedure are in the results section. POC GLUCOSE Routine 07/14/2017 Results for this 11:46 AM CDT procedure are in the results section. POC GLUCOSE Routine 07/14/2017 Results for this 7:54 AM CDT procedure are in the results section. POC GLUCOSE Routine 07/14/2017 Results for this 4:18 AM CDT procedure are in the results section. SMEAR REVIEW Routine 07/14/2017 Results for this 4:10 AM CDT procedure are in the results section. HC COMPLETE BLD COUNT Routine 07/14/2017 Results for this W/AUTO DIFF 4:10 AM CDT procedure are in the results section. HEPATITIS C VIRUS Routine 07/14/2017 Results for this QUANTITATIVE BY PCR 4:00 AM CDT procedure are in the results section. HCV QUALITATIVE BY PCR Routine 07/14/2017 Results for this 4:00 AM CDT procedure are in the results section. ZZESTIMATED GFR Routine 07/14/2017 Results for this 4:00 AM CDT procedure are in the results section. HEPATITIS C ANTIBODY Routine 07/14/2017 Results for this 4:00 AM CDT procedure are in the results section. MAGNESIUM LEVEL Routine 07/14/2017 Results for this 4:00 AM CDT procedure are in the results section. COMPREHENSIVE METABOLIC Routine 07/14/2017 Results for this PANEL 4:00 AM CDT procedure are in the results section. POC GLUCOSE Routine 07/14/2017 Results for this 1:22 AM CDT procedure are in the results section. POC GLUCOSE Routine 07/13/2017 Results for this 10:29 PM CDT procedure are in the results section. MRI CHOLANGIOGRAM W WO Routine 07/13/2017 Results for this CONTRAST 10:04 PM CDT procedure are in the results section. POC GLUCOSE Routine 07/13/2017 Results for this 7:39 PM CDT procedure are in the results section. NM HEPATOBILIARY STAT 07/13/2017 Results for this 3:07 PM CDT procedure are in the results section. B NATRIURETIC PEPTIDE Routine 07/13/2017 Results for this 7:45 AM CDT procedure are in the results section. HC COMPLETE BLD COUNT Routine 07/13/2017 Results for this W/AUTO DIFF 7:45 AM CDT procedure are in the results section. ZZESTIMATED GFR Routine 07/13/2017 Results for this 4:00 AM CDT procedure are in the results section. LIPID PANEL Routine 07/13/2017 Results for this 4:00 AM CDT procedure are in the results section. LIPASE LEVEL Routine 07/13/2017 Results for this 4:00 AM CDT procedure are in the results section. AMYLASE LEVEL Routine 07/13/2017 Results for this 4:00 AM CDT procedure are in the results section. MAGNESIUM LEVEL Routine 07/13/2017 Results for this 4:00 AM CDT procedure are in the results section. COMPREHENSIVE METABOLIC Routine 07/13/2017 Results for this PANEL 4:00 AM CDT procedure are in the results section. US GALLBLADDER STAT 07/13/2017 Results for this 12:54 AM CDT procedure are in the results section. ECG ED PRELIMINARY Routine 07/12/2017 Results for this INTERPRETATION 10:18 PM CDT procedure are in the results section. TROPONIN STAT 07/12/2017 Results for this 8:40 PM CDT procedure are in the results section. URINE CULTURE STAT 07/12/2017 Results for this 7:36 PM CDT procedure are in the results section. URINALYSIS SCREEN AND STAT 07/12/2017 Results for this MICROSCOPY, WITH REFLEX 7:33 PM CDT procedure are in the TO CULTURE results section. CT ABDOMEN PELVIS WO STAT 07/12/2017 Results for this CONTRAST 7:04 PM CDT procedure are in the results section. XR CHEST 1 VW PORTABLE STAT 07/12/2017 Results for this 6:06 PM CDT procedure are in the results section. ZZESTIMATED GFR STAT 07/12/2017 Results for this 5:42 PM CDT procedure are in the results section. B NATRIURETIC PEPTIDE STAT 07/12/2017 Results for this 5:42 PM CDT procedure are in the results section. TROPONIN STAT 07/12/2017 Results for this 5:42 PM CDT procedure are in the results section. COMPREHENSIVE METABOLIC STAT 07/12/2017 Results for this PANEL 5:42 PM CDT procedure are in the results section. PARTIAL THROMBOPLASTIN STAT 07/12/2017 Results for this TIME (PTT) 5:42 PM CDT procedure are in the results section. PROTHROMBIN TIME WITH INR STAT 07/12/2017 Results for this 5:42 PM CDT procedure are in the results section. HC COMPLETE BLD COUNT STAT 07/12/2017 Results for this W/AUTO DIFF 5:42 PM CDT procedure are in the results section. ECG 12-LEAD STAT 07/12/2017 Results for this 4:58 PM CDT procedure are in the results section. POC GLUCOSE Routine 05/07/2017 Results for this 12:29 PM CDT procedure are in the results section. POC GLUCOSE Routine 05/07/2017 Results for this 7:41 AM CDT procedure are in the results section. ZZESTIMATED GFR Routine 05/07/2017 Results for this 5:07 AM CDT procedure are in the results section. BASIC METABOLIC PANEL Routine 05/07/2017 Results for this 5:07 AM CDT procedure are in the results section. HC COMPLETE BLD COUNT Routine 05/07/2017 Results for this W/AUTO DIFF 5:07 AM CDT procedure are in the results section. POC GLUCOSE Routine 05/06/2017 Results for this 9:04 PM CDT procedure are in the results section. POC GLUCOSE Routine 05/06/2017 Results for this 6:33 PM CDT procedure are in the results section. POC GLUCOSE Routine 05/06/2017 Results for this 12:04 PM CDT procedure are in the results section. POC GLUCOSE Routine 05/06/2017 Results for this 10:15 AM CDT procedure are in the results section. HC COMPLETE BLD COUNT Routine 05/06/2017 Results for this W/AUTO DIFF 5:21 AM CDT procedure are in the results section. ZZESTIMATED GFR Routine 05/06/2017 Results for this 4:00 AM CDT procedure are in the results section. BASIC METABOLIC PANEL Routine 05/06/2017 Results for this 4:00 AM CDT procedure are in the results section. POC GLUCOSE Routine 05/05/2017 Results for this 9:16 PM CDT procedure are in the results section. POC GLUCOSE Routine 05/05/2017 Results for this 4:49 PM CDT procedure are in the results section. LIPID PANEL Routine 05/05/2017 Results for this 4:31 PM CDT procedure are in the results section. HEMOGLOBIN A1C Routine 05/05/2017 Results for this 4:31 PM CDT procedure are in the results section. CV STRESS TEST NUCLEAR Routine 05/05/2017 Results for this CARDIO 3:06 PM CDT procedure are in the results section. URINE CULTURE Routine 05/05/2017 Results for this 10:46 AM CDT procedure are in the results section. URINE DRUGS OF ABUSE Routine 05/05/2017 Results for this SCREEN 10:45 AM CDT procedure are in the results section. URINALYSIS SCREEN AND Routine 05/05/2017 Results for this MICROSCOPY, WITH REFLEX 10:45 AM CDT procedure are in the TO CULTURE results section. NM MYOCARDIAL PERFUSION Routine 05/05/2017 Results for this REST STRESS 2 DAY 8:17 AM CDT procedure are in the results section. ECG 12-LEAD Routine 05/05/2017 7:59 AM CDT TROPONIN Routine 05/05/2017 Results for this 5:31 AM CDT procedure are in the results section. ZZESTIMATED GFR Routine 05/05/2017 Results for this 5:31 AM CDT procedure are in the results section. BASIC METABOLIC PANEL Routine 05/05/2017 Results for this 5:31 AM CDT procedure are in the results section. HC COMPLETE BLD COUNT Routine 05/05/2017 Results for this W/AUTO DIFF 5:00 AM CDT procedure are in the results section. ECG 12-LEAD STAT 05/05/2017 Results for this 2:54 AM CDT procedure are in the results section. XR CHEST 1 VW PORTABLE STAT 05/04/2017 Results for this 7:46 PM CDT procedure are in the results section. ZZESTIMATED GFR STAT 05/04/2017 Results for this 4:25 PM CDT procedure are in the results section. B NATRIURETIC PEPTIDE STAT 05/04/2017 Results for this 4:25 PM CDT procedure are in the results section. TROPONIN STAT 05/04/2017 Results for this 4:25 PM CDT procedure are in the results section. CREATINE KINASE, TOTAL STAT 05/04/2017 Results for this (CPK) 4:25 PM CDT procedure are in the results section. COMPREHENSIVE METABOLIC STAT 05/04/2017 Results for this PANEL 4:25 PM CDT procedure are in the results section. PROTHROMBIN TIME WITH INR STAT 05/04/2017 Results for this 4:25 PM CDT procedure are in the results section. HC COMPLETE BLD COUNT STAT 05/04/2017 Results for this W/AUTO DIFF 4:25 PM CDT procedure are in the results section. ECG 12-LEAD STAT 05/04/2017 Results for this 4:04 PM CDT procedure are in the results section. XR CHEST 2 VW Routine 05/03/2017 Shortness of breath Results for this 4:57 PM CDT procedure are in the results section. after 04/21/2017 Results * Estimated GFR (10/19/2017 10:00 AM) Only the most recent of 52 results within the time period is included. GFR Non Af Amer 69 mL/min/1.73 m2 [facility] DEPARTMENT OF PATHOLOGY AND GENOMIC MEDICINE GFR Af Amer 84 mL/min/1.73 m2 [facility] DEPARTMENT OF Comment: PATHOLOGY AND Chronic kidney disease: <60 GENOMIC MEDICINE mL/min/1.73m2 Kidney failure: <15 mL/min/1.73m2 The estimated GFR is calculated from the IDMS-traceable Modification of Diet in Renal Disease Equation. The accuracy of the calculation is poor when the creatinine is normal. Calculated values >90 mL/min/1.73m2 are not reported. This equation has not been validated in children (<18 years), women, the elderly (>70 years), or ethnic groups other than Caucasians and Americans. Specimen Plasma specimen Performing Organization Address City/[facility]/[place] [address] PATHOLOGY [facility]ini [facility] * B natriuretic peptide (10/19/2017 10:00 AM) Only the most recent of 16 results within the time period is included. BNP 1,574 (H) 0 - 100 pg/mL [facility] PATHOLOGY AND [facility] MEDICINE Specimen Blood Performing Organization Address [facility] [place] [address] PATHOLOGY [facility] * Magnesium level (10/19/2017 10:00 AM) Only the most recent of 25 results within the time period is included. Magnesium 1.8 1.6 - 2.6 mg/dL [facility] PATHOLOGY AND [facility] Specimen Plasma specimen Performing Organization Address [facility] [place] [address] PATHOLOGY [facility] * Basic metabolic panel (10/19/2017 10:00 AM) Only the most recent of 43 results within the time period is included. Sodium 142 135 - 148 mEq/L [facility] DEPARTMENT OF PATHOLOGY AND [facility] Potassium 4.0 3.5 - 5.0 mEq/L [facility] DEPARTMENT OF PATHOLOGY AND [facility] Chloride 98 98 - 112 mEq/L [facility] DEPARTMENT OF PATHOLOGY AND GENOMIC MEDICINE CO2 34 (H) 24 - 31 mEq/L [facility] DEPARTMENT OF PATHOLOGY AND [facility] Anion gap 10 7 - 15 mEq/L [facility] DEPARTMENT OF Comment: PATHOLOGY AND Starting from January [employer] , anion gap calculation no longer incorporates potassium. Please note the change. BUN 6 6 - 20 mg/dL [facility] DEPARTMENT OF PATHOLOGY AND [facility] Creatinine 1.1 0.7 - 1.2 mg/dL [facility] DEPARTMENT OF PATHOLOGY AND [facility] Glucose 153 (H) 65 - 99 mg/dL [facility] DEPARTMENT OF PATHOLOGY AND [facility] Calcium 8.9 8.3 - 10.2 mg/dL [facility] DEPARTMENT OF PATHOLOGY AND GENOMIC MEDICINE Specimen Plasma specimen Performing Organization Address [facility]ode Phone Number [facility] DEPARTMENT OF [address] [place] [address] PATHOLOGY AND GENOMIC MEDICINE * XR Chest 1 Vw Portable (10/15/2017 3:49 PM) Only the most recent of 11 results within the time period is included. Narrative Performed At Examination: XR CHEST 1 VW PORTABLE RADIANT Clinical history: "Pleural Effusions" Comparison: 10/04/2017 IMPRESSION: There are no new alveolar opacities within either lung. Bibasilar opacities consistent with atelectasis versus small infiltrates appear unchanged. No pneumothoraces are identified. The cardiomediastinal silhouette is unchanged. The bones of the chest are unchanged. Cardiac pacer is again seen. 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 Bibasilar opacities consistent with atelectasis versus small infiltrates appear unchanged. No pneumothoraces are identified. The cardiomediastinal silhouette is unchanged. The bones of the chest are unchanged. Cardiac pacer is again seen. [id number] Performing Organization Address City/[facility] Cent[facility]ode Phone Number [facility] [address] [place] [address] * POC glucose (10/15/2017 11:38 AM) Only the most recent of 119 results within the time period is included. POC glucose 248 (H) 65 - 99 mg/dL [facility] DEPARTMENT OF Comment: PATHOLOGY AND H Notified RN GENOMIC MEDICINE Meter ID: [id number] Edge Sander: Bran Cate N Performing Organization Address City/[facility]/Zipcode Phone Number [facility] DEPARTMENT OF [address] [place] [phone] PATHOLOGY AND GENOMIC MEDICINE * CBC with platelet and differential (10/14/2017 5:00 AM) Only the most recent of 37 results within the time period is included. WBC 8.45 4.50 - 11.00 k/uL [facility] DEPARTMENT OF PATHOLOGY AND GENOMIC MEDICINE RBC 3.84 (L) 4.40 - 6.00 m/uL [facility] DEPARTMENT OF PATHOLOGY AND GENOMIC MEDICINE HGB 9.9 (L) 14.0 - 18.0 g/dL [facility] DEPARTMENT OF PATHOLOGY AND GENOMIC MEDICINE HCT 33.6 (L) 41.0 - 51.0 % [facility] DEPARTMENT OF PATHOLOGY AND GENOMIC MEDICINE MCV 87.5 82.0 - 100.0 fL [facility] DEPARTMENT OF PATHOLOGY AND GENOMIC MEDICINE MCH 25.8 (L) 27.0 - 34.0 pg [facility] DEPARTMENT OF PATHOLOGY AND GENOMIC MEDICINE MCHC 29.5 (L) 31.0 - 37.0 g/dL [facility] DEPARTMENT OF PATHOLOGY AND GENOMIC MEDICINE RDW - SD 48.0 37.0 - 55.0 fL [facility] DEPARTMENT OF PATHOLOGY AND GENOMIC MEDICINE MPV 10.3 8.8 - 13.2 fL [facility] DEPARTMENT OF PATHOLOGY AND GENOMIC MEDICINE Platelet count 152 150 - 400 k/uL [facility] DEPARTMENT OF PATHOLOGY AND GENOMIC MEDICINE Nucleated RBC 0.00 /100 WBC [facility] DEPARTMENT OF PATHOLOGY AND GENOMIC MEDICINE Neutrophils 61.9 39.0 - 69.0 % [facility] DEPARTMENT OF PATHOLOGY AND GENOMIC MEDICINE Lymphocytes 23.3 (L) 25.0 - 45.0 % [facility] DEPARTMENT OF PATHOLOGY AND GENOMIC MEDICINE Monocytes 10.4 (H) 0.0 - 10.0 % [facility] DEPARTMENT OF PATHOLOGY AND GENOMIC MEDICINE Eosinophils 2.7 0.0 - 5.0 % [facility] DEPARTMENT OF PATHOLOGY AND GENOMIC MEDICINE Basophils 0.2 0.0 - 1.0 % [facility] DEPARTMENT OF PATHOLOGY AND GENOMIC MEDICINE Immature granulocytes 1.5 (H)Comment: "Immature 0.0 - 1.0 % [facility] DEPARTMENT OF granulocytes" (promyelocytes, PATHOLOGY AND myelocytes, metamyelocytes) GENOMIC MEDICINE Specimen Blood Performing Organization Address City/[facility]/Zipcode Phone Number [facility] [address] [place] [address] PATHOLOGY AND GENOMIC MEDICINE * CT Chest Wo Contrast (10/10/2017 10:22 PM) Narrative Performed At Examination: CT CHEST WO CONTRAST RADIANT Clinical History: left side large hematoma at [...] the left lingular and bilateral lower lobes. 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 [facility]-[id number] Performing Organization Address City/[facility]/Zipcode Phone Number [facility] [address] [place] [address] * Potassium level (10/10/2017 2:15 PM) Only the most recent of 3 results within the time period is included. Potassium 5.0 3.5 - 5.0 mEq/L [facility] DEPARTMENT OF PATHOLOGY AND GENOMIC MEDICINE Specimen Plasma specimen Performing Organization Address City/[facility] Phone Number [facility] DEPARTMENT OF [address] [place] [phone] PATHOLOGY AND GENOMIC MEDICINE * NM Lung Ventilation Perfusion (10/08/2017 9:48 AM) Narrative Performed At PROCEDURE: [place] LUNG VENTILATION PERFUSION [facility] INDICATION: Evaluate for chronic PE. COMPARISON: Portable [...] be excluded based on this study, however. 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 [facility]-[id number] Performing Organization Address City/[facility]/Zipcode Phone Number [facility] [address] [place] [phone] * Smear review (10/07/2017 4:15 AM) Only the most recent of 2 results within the time period is included. Platelet slide review Isa slt decr [facility] DEPARTMENT OF PATHOLOGY AND GENOMIC MEDICINE Enlarged platelets Moderate (A) [facility] DEPARTMENT OF PATHOLOGY AND GENOMIC MEDICINE Performing Organization Address [facility] Phone Number [facility] DEPARTMENT OF [address] [place] [phone] PATHOLOGY AND GENOMIC MEDICINE * Urinalysis screen and microscopy, with reflex to culture (10/06/2017 5:40 PM) Only the most recent of 5 results within the time period is included. Specimen site Clean catch [facility] DEPARTMENT OF PATHOLOGY AND GENOMIC MEDICINE Color, UA Yellow [facility] DEPARTMENT OF PATHOLOGY AND GENOMIC MEDICINE Appearance, UA Clear [facility] DEPARTMENT OF PATHOLOGY AND GENOMIC MEDICINE Specific gravity, UA 1.019 1.001 - 1.035 [facility] DEPARTMENT OF PATHOLOGY AND GENOMIC MEDICINE pH, UA 5.0 5.0 - 8.5 [facility] DEPARTMENT OF PATHOLOGY AND GENOMIC MEDICINE Protein, UA Negative Negative [facility] DEPARTMENT OF PATHOLOGY AND GENOMIC MEDICINE Glucose, UA Negative Negative [facility] DEPARTMENT OF PATHOLOGY AND GENOMIC MEDICINE Ketones, UA Negative Negative [facility] DEPARTMENT OF PATHOLOGY AND GENOMIC MEDICINE Bilirubin, UA Negative Negative [facility] DEPARTMENT OF PATHOLOGY AND GENOMIC MEDICINE Blood, UA Negative Negative [facility] DEPARTMENT OF PATHOLOGY AND GENOMIC MEDICINE Nitrite, UA Negative Negative [facility] DEPARTMENT OF PATHOLOGY AND GENOMIC MEDICINE Urobilinogen, UA <2.0 <2.0 [facility] DEPARTMENT OF PATHOLOGY AND GENOMIC MEDICINE Leukocyte esterase, UA Negative Negative [facility] DEPARTMENT OF PATHOLOGY AND GENOMIC MEDICINE Epithelial cells, UA 1 /HPF [facility] DEPARTMENT OF PATHOLOGY AND GENOMIC MEDICINE WBC, UA <1 0 - 1 /HPF [facility] DEPARTMENT OF PATHOLOGY AND GENOMIC MEDICINE RBC, UA 2 (H) 0 - 1 /HPF [facility] DEPARTMENT OF PATHOLOGY AND GENOMIC MEDICINE Bacteria, UA Few None seen [facility] DEPARTMENT OF PATHOLOGY AND GENOMIC MEDICINE Yeast, UA None seen [facility] DEPARTMENT OF PATHOLOGY AND GENOMIC MEDICINE Yeast with pseudohyphae, None seen [facility] DEPARTMENT OF UA PATHOLOGY AND GENOMIC MEDICINE Hyaline casts, UA 4 /LPF [facility] DEPARTMENT OF PATHOLOGY AND GENOMIC MEDICINE Specimen Urine Performing Organization Address City/[facility]/Zipcode Phone Number [facility] [place] [address] PATHOLOGY AND GENOMIC MEDICINE * Urine culture (10/06/2017 5:40 PM) Only the most recent of 5 results within the time period is included. Urine culture SEE COMMENTComment: [facility] DEPARTMENT OF Bacteriuria screen negative. PATHOLOGY AND GENOMIC MEDICINE Performing Organization Address City/[facility]ode Phone Number [facility] [place] [address] PATHOLOGY AND GENOMIC MEDICINE * Blood culture, aerobic & anaerobic (10/06/2017 2:00 PM) Only the most recent of 2 results within the time period is included. Blood culture isolate No growth after 5 days of [facility] DEPARTMENT OF incubation. PATHOLOGY AND Comment: GENOMIC MEDICINE Specimen Information Specimen Source: Blood Specimen Site: Forearm, left Specimen Blood - Forearm, left Performing Organization Address City/[facility] Cent[facility]ode Phone Number [facility] [place] [address] PATHOLOGY AND GENOMIC MEDICINE * ECG 12 lead (10/06/2017 12:25 PM) Only the most recent of 9 results within the time period is included. Ventricular rate 75 [facility] Atrial rate [address] interval 140 [facility] QRSD interval 118 [facility] QT interval 404 [facility] QTC interval 451 [facility] P axis 1 48 [facility] QRS axis 1 106 [facility] T wave axis 117 [facility] MUSE EKG impression Normal sinus rhythm-Right [facility] MUSE atrial enlargement-Rightward axis-Nonspecific intraventricular conduction delay-Nonspecific T wave abnormality-Abnormal ECG-In automated comparison with ECG of 04-OCT-2017 14:08,-No significant change was found- Performing Organization Address [facility] [place] [address] * Echocardiogram 2d limited (10/04/2017 4:25 PM) Narrative Performed At Echocardiography Report [facility] [id number] [facility] [address] [address] Pat.Name: SAM ISAAC.ID: [id number] .Date: 10/04/2017 Refer.MD: MARCOS PRIDE MD Exam Time: 4:59:00 PM Study Type:Routine Echo Height: 70in Weight: 272lb BSA: 2.38 m2 Age: 2 1960,56Y Sex: MALE BP: 125/66 HR: 77 bpm Sonogrphr: Kaycee Ascencio, RDCS Pat. Stat.:Inpatient Room: A938 Study Status:Final Echo Event ID:[id number] Order ID: [id number] Reason for Study:Myocardial Ischemia / Infarction - acute ches pain with suspected MO and nondiagnostic ECG with a resting ECHO [...] not well seen. MEASUREMENTS: 2D Parasternal Long Depauw Ao An 2.2 cm LVPWd 1.5 cm [...] Radiology Results In - 10/04/2017 5:34 PM [facility] Echocardiography Report [address] [place] [address] Pat.Name: SAM ISAAC [facility].ID: [id number] .Date: 10/04/2017 Refer.MD: MARCOS PRIDE MD Exam Time: 4:59:00 PM Study Type:Routine Echo Height: 70in Weight: 272lb BSA: 2.38 m2 Age: 2 1960,56Y Sex: MALE BP: 125/66 HR: 77 bpm Sonogrphr: Kaycee Ascencio RDCS Pat. Stat.:Inpatient Room: A9 Study Status:Final Echo Event ID:[id number] Order ID: [id number] Reason for Study:Myocardial Ischemia / Infarction - acute ches pain with suspected MO and nondiagnostic ECG with a resting ECHO [...] not well seen. MEASUREMENTS: 2D Parasternal Long Depauw Ao An 2.2 cm LVPWd 1.5 cm LVOT 2.4 cm LA Ds 3.9 cm LVIDd 6 cm Index 2.5 cm/m Ao Rtd 3.5 cm Index 1.5 cm/m LVIDs 4.7 cm LV Mass 470.8 g (122-174) LV%fs 22 % LVM Index 197.8 g/m2 IVSd 1.6 cm RWT 0.5 Signed 10/04/2017 05:34 PM Shania Mustafa M.D. Performing Organization Address City/State/Zipcode Phone Number [facility] [address] [place] [address] * Troponin (10/04/2017 2:22 PM) Only the most recent of 11 results within the time period is included. Troponin <0.30 0.00 - 0.30 ng/mL [facility] DEPARTMENT OF Comment: PATHOLOGY AND 0.30 - 1.49 GENOMIC MEDICINE ng/ml May indicate increased risk of acute coronary syndrome. >=1.5 ng/ml Consistent with acute myocardial infarction. The diagnostic value of a single normal or non-diagnostic result is questionable. Serial samples at 2-6 hour intervals are required to rule out acute myocardial injury. Specimen Plasma specimen Performing Organization Address [facility] [place] [address] PATHOLOGY AND [facility] * Partial thromboplastin time, activated (10/04/2017 2:22 PM) Only the most recent of 6 results within the time period is included. PTT 23.3 23.0 - 36.0 sec [facility] DEPARTMENT OF Comment: PATHOLOGY AND PTT therapeutic range for [facility] unfractionated heparin is 61.0-112.0 seconds which corresponds to Anti-Xa 0.3-0.7 U/ml. Specimen Blood Performing Organization Address [facility] [place] [address] PATHOLOGY AND [facility] * Prothrombin time with INR (10/04/2017 2:22 PM) Only the most recent of 10 results within the time period is included. Prothrombin time 13.5 12.0 - 15.0 sec [facility] DEPARTMENT OF PATHOLOGY AND GENOMIC MEDICINE INR 1.0 [facility] DEPARTMENT OF Comment: PATHOLOGY AND The International Normalized [facility] Ratio (INR) is a therapeutic monitoring tool for patients who are stable on oral anticoagulant therapy. An INR of 2.0-3.0 is suggested for deep vein thrombosis/pulmonary embolism. Specimen Blood Performing Organization Address [facility] [place] [address] PATHOLOGY AND [facility] * Phosphorus level (10/04/2017 2:22 PM) Only the most recent of 13 results within the time period is included. Phosphorus 2.3 (L) 2.4 - 4.5 mg/dL [facility] DEPARTMENT OF PATHOLOGY AND [facility] Specimen Plasma specimen Performing Organization Address [facility] Centercode Phone Number [facility] DEPARTMENT OF [address] [place] [address] PATHOLOGY AND GENOMIC MEDICINE * ECG Pre/Post Op-Tomorrow (10/04/2017 11:53 AM) Ventricular rate 78 [facility] Atrial rate [address] interval 144 [facility] QRSD interval 114 [facility] QT interval 400 [facility] QTC interval 456 [facility] P axis 1 44 [facility] QRS axis 1 143 [facility] T wave axis 110 [facility] EKG impression Normal sinus rhythm-Possible [facility] Left atrial enlargement-Right axis deviation-Abnormal ECG-In automated comparison with ECG of 29-SEP-2017 19:29,-QT has shortened- Performing Organization Address City/State/Zipcode Phone Number [facility] ALEX [address] [place] [address] * Cv electrophysiology procedure (10/03/2017 11:27 AM) Narrative Performed At [facility] TITLE OF PROCEDURE: Single chamber defibrillator placement. PREOPERATIVE DIAGNOSES: 1. Nonischemic dilated cardiomyopathy. 2. Congestive heart failure. POSTOPERATIVE DIAGNOSES: 1. Nonischemic dilated cardiomyopathy. 2. Congestive heart failure. PROCEDURES PERFORMED: 1. Monitored anesthesia care. 2. Single chamber defibrillator placement. 3. Defibrillation Safety Threshold testing. BRIEF HISTORY AND CLINICAL BACKGROUND: This is a 56-year-old man with aforementioned cardiovascular problems. He also has a history of mental illness and when seen earlier this year, the issue of medication compliance as well as appropriate comprehension of his condition and the options for therapy were in question. Since that time, he has demonstrated compliance with medical management and the usage of LifeVest. His is presently with him and she has [...] fashion. Local anesthesia was achieved with 1% lidocaine. Intravenous conscious sedation using intravenous Versed, Fentanyl, and Phenergan, was provided as necessary. An upper extremity venogram was performed, and during the venogram, access to the axillary vein was achieved. A soft-tipped J-wire was advanced into the venous system. A pocket was then made below the plane of the pectoralis fascia using a scalpel, cautery, and blunt dissection. Using the ecfs-hhr-crin technique and an introducer sheath, a defibrillation lead was advanced to the right ventricular apex and the fixation mechanism was deployed. Pacing and sensing thresholds were then evaluated. After they were found to be adequate, maximum output pacing was performed to test for diaphragmatic stimulation, and none was seen. The lead was sutured to the pectoral muscle using 0 Ethibond sutures tied over the lead collar. The pocket was visually, manually, and radiographically, inspected to ensure there were no gauze or sponges in the pocket. The pocket was then washed using an antibiotic solution. After washing was complete, gloves were changed and fresh sterile drapes were placed and a defibrillator was unpacked. The defibrillator was then attached to the lead and the set screws were tightened and the leads were gently pulled upon to ensure they were affixed within the device header. The generator and lead slack were placed into the pocket. The device was sutured to the muscle using an 0-Ethibond suture through the suture hole in the header. Defibrillation threshold testing was then performed. After the Defibrillation Safety Threshold was found to be satisfactory, the incision was closed in layers using running 0-Vicryl suture for 2 layers followed by milvia and skin adhesive. COMPLICATIONS: None. FINDINGS: 1. The right ventricular apical defibrillation lead is a [employer] Endotak Fairmont-G, model 0296, serial #[id number]. Measured R-wave 10.1 mV, pacing threshold 0.8 V, current 0.8 mA, impedance 982 ohms. 2. The defibrillator is a [employer] Dynagen EL ICD model D150, serial #[id number]. 3. Ventricular fibrillation was induced and the patient was deeply sedated. It was detected at least sensitivity and terminated with 20 joules delivered energy, 43 ohms high voltage impedance back to sinus rhythm. He woke without sequelae. OTHER FINDINGS: Estimated blood loss less than 10 mL. CONCLUSIONS: Successful ICD placement. RECOMMENDATIONS: Return to his room, IV antibiotics and continue therapies per Dr. Neumann and Dr. Pride. Performing Organization Address City/State/Zipcode Phone Number [facility] [address] [place] [address] * Pv duplex venous upper extremity (10/02/2017 5:46 PM) Only the most recent of 3 results within the time period is included. Narrative Performed At [facility] Lower Extremity Venous Report [address] [place] [id number] Pat.Name: SAM ISAAC Sadaf.ID: [id number] .Date: 10/02/2017 Refer.MD: MARCOS NEUMANN MD Exam Time: 5:20:00 PM Study Type:LE Venous Age: 2 1960,56Y Sex: MALE Sonogrphr: DAVION Park RCS Pat. Stat.:Inpatient Room: [place] [address] A Tape Vol: FORTUNATO, CPT - 4: 79516 Echo Event ID:[id number] Order ID: [id number] Reason for Study:Evaluate for DVT. History of [...] Radiology Results In - 10/02/2017 6:34 PM [facility] Vascular Ultrasound Laboratory Lower Extremity Venous Report [address] [address] Pat.Name: SAM ISAAC.ID: [id number] .Date: 10/02/2017 Refer.MD: MARCOS NEUMANN MD Exam Time: 5:20:00 PM Study Type:LE Venous Age: 2 1960,56Y Sex: MALE Sonogrphr: DAVION Park, SAVANNA Pat. Stat.:Inpatient Room: A9 [facility] A Tape Vol: FORTUNATO, CPT - 4: 42567 Echo Event ID:[id number] Order ID: [id number] Reason for Study:Evaluate for DVT. History of [...] Signed 10/02/2017 06:33 PM Chanell Fitzgerald MD, [facility] Performing Organization Address City/State/Zipcode Phone Number [facility] [address] [place] [address] * Echocardiogram complete w contrast and 3D if needed (10/02/2017 4:21 PM) Narrative Performed At Echocardiography Report [facility] [address] [place] [address] Pat.Name: SAM ISAAC Pat.ID: [id number] .Date: 10/02/2017 Refer.MD: MARCOS NEUMANN MD Exam Time: 4:15:00 PM Study Type:Routine Echo Height: 70in Weight: 280lb BSA: 2.41 m2 Age: 2 1960,56Y Sex: MALE BP: 137/72 HR: 73 bpm Sonogrphr: Kaycee Ascencio RDCS Pat. Stat.:Inpatient Room: A938 Study Status:Final Echo Event ID:[id number] Order ID: [id number] Reason for Study:HF - Re-eval of known [...] of 10 mmHg. MEASUREMENTS: 2D Parasternal Long Depauw LVOT 2.2 cm LA Ds 4.4 cm [...] Radiology Results In - 10/02/2017 6:55 PM [facility] Echocardiography Report [address] [place] [address], [place] [id number] Pat.Name: ASM ISAAC.ID: [id number] .Date: 10/02/2017 Refer.MD: MARCOS NEUMANN MD Exam Time: 4:15:00 PM Study Type:Routine Echo Height: 70in Weight: 280lb BSA: 2.41 m2 Age: 2 1960,56Y Sex: MALE BP: 137/72 HR: 73 bpm Sonogrphr: Kaycee Ascencio RAINA Pat. Stat.:Inpatient Room: A938 Study Status:Final Echo Event ID:[id number] Order ID: [id number] Reason for Study:HF - Re-eval of known [...] of 10 mmHg. MEASUREMENTS: 2D Parasternal Long Depauw LVOT 2.2 cm LA Ds 4.4 cm [...] Signed 10/02/2017 06:54 PM Jaspal Power M.D. Performing Organization Address City/State/Zipcode Phone Number [facility] [address] [place] [address] * Arterial blood gas (10/02/2017 7:36 AM) Only the most recent of 10 results within the time period is included. pH, arterial 7.43 7.35 - 7.45 [facility] DEPARTMENT OF PATHOLOGY AND GENOMIC MEDICINE pCO2, arterial 54 (H) 35 - 45 mmHg [facility] DEPARTMENT OF PATHOLOGY AND GENOMIC MEDICINE pO2, arterial 170 (H) 80 - 90 mmHg [facility] DEPARTMENT OF PATHOLOGY AND GENOMIC MEDICINE Bicarbonate, arterial 35.1 (H) 21.0 - 28.0 mmol/L [facility] DEPARTMENT OF PATHOLOGY AND GENOMIC MEDICINE Base excess, arterial 9 (H) -2 - 2 mEq/L [facility] DEPARTMENT OF PATHOLOGY AND GENOMIC MEDICINE O2 saturation, arterial 100 95 - 100 % [facility] DEPARTMENT OF PATHOLOGY AND GENOMIC MEDICINE Specimen Blood Performing Organization Address City/[facility] Centercode Phone Number [address] [address] PATHOLOGY AND GENOMIC MEDICINE * Urine drugs of abuse screen (09/30/2017 4:00 PM) Only the most recent of 3 results within the time period is included. Amphetamine screen, urine Negative [facility] DEPARTMENT OF PATHOLOGY AND GENOMIC MEDICINE Barbiturate screen, urine Negative [facility] DEPARTMENT OF PATHOLOGY AND GENOMIC MEDICINE Benzodiazepine screen, Negative [facility] DEPARTMENT OF urine PATHOLOGY AND GENOMIC MEDICINE Cannabinoid screen, urine Negative [facility] DEPARTMENT OF PATHOLOGY AND GENOMIC MEDICINE Cocaine screen, urine Negative [facility] DEPARTMENT OF PATHOLOGY AND GENOMIC MEDICINE Methadone metabolite Negative [facility] DEPARTMENT OF (EDDP), urine PATHOLOGY AND GENOMIC MEDICINE Opiates screen, urine Negative [facility] DEPARTMENT OF PATHOLOGY AND GENOMIC MEDICINE Oxycodone screen, urine Negative [facility] DEPARTMENT OF PATHOLOGY AND GENOMIC MEDICINE Phencyclidine screen, Negative [facility] DEPARTMENT OF urine PATHOLOGY AND GENOMIC MEDICINE Tricyclic screen, urine Negative [facility] DEPARTMENT OF Comment: PATHOLOGY AND Drug screen minimum [facility] concentration of detectability Amphetamines 1000 ng/mL Barbiturates 200 ng/mL Benzodiazepines 300 ng/mL Cocaine 300 ng/mL Methadone 300 ng/mL Opiates 300 ng/mL Oxycodone 300 ng/mL Phencyclidine 25 ng/mL Cannabinoids 50 ng/mL Tricyclics 1000 ng/mL Negative test results indicates presumptive evidence of lack of clinically significant drug concentration in this urine specimen. Positive test results are presumptive evidence of clinically significant drug concentration in this urine specimen. Testing performed for medical purposes only. Specimen Urine Performing Organization Address City/[facility] [place] [address] PATHOLOGY AND GENOMIC MEDICINE * Urinalysis, automated with microscopy (09/30/2017 4:00 PM) Only the most recent of 2 results within the time period is included. Color, UA Straw [facility] DEPARTMENT OF PATHOLOGY AND GENOMIC MEDICINE Appearance, UA Clear [facility] DEPARTMENT OF PATHOLOGY AND GENOMIC MEDICINE Specific gravity, UA 1.008 1.001 - 1.035 [facility] DEPARTMENT OF PATHOLOGY AND GENOMIC MEDICINE pH, UA 5.0 5.0 - 8.5 [facility] DEPARTMENT OF PATHOLOGY AND GENOMIC MEDICINE Protein, UA Negative Negative [facility] DEPARTMENT OF PATHOLOGY AND GENOMIC MEDICINE Glucose, UA Negative Negative [facility] DEPARTMENT OF PATHOLOGY AND GENOMIC MEDICINE Ketones, UA Negative Negative [facility] DEPARTMENT OF PATHOLOGY AND GENOMIC MEDICINE Bilirubin, UA Negative Negative [facility] DEPARTMENT OF PATHOLOGY AND GENOMIC MEDICINE Blood, UA Negative Negative [facility] DEPARTMENT OF PATHOLOGY AND GENOMIC MEDICINE Nitrite, UA Negative Negative [facility] DEPARTMENT OF PATHOLOGY AND GENOMIC MEDICINE Urobilinogen, UA <2.0 <2.0 [facility] DEPARTMENT OF PATHOLOGY AND GENOMIC MEDICINE Leukocyte esterase, UA Negative Negative [facility] DEPARTMENT OF PATHOLOGY AND GENOMIC MEDICINE Epithelial cells, UA 1 /HPF [facility] DEPARTMENT OF PATHOLOGY AND GENOMIC MEDICINE WBC, UA None seen 0 - 1 /HPF [facility] DEPARTMENT OF PATHOLOGY AND GENOMIC MEDICINE RBC, UA 1 0 - 1 /HPF [facility] DEPARTMENT OF PATHOLOGY AND GENOMIC MEDICINE Bacteria, UA Few None seen [facility] DEPARTMENT OF PATHOLOGY AND GENOMIC MEDICINE Hyaline casts, UA 20 /LPF [facility] DEPARTMENT OF PATHOLOGY AND GENOMIC MEDICINE Yeast, UA None seen [facility] DEPARTMENT OF PATHOLOGY AND GENOMIC MEDICINE Yeast with pseudohyphae, None seen [facility] DEPARTMENT OF PATHOLOGY AND GENOMIC MEDICINE Specimen Urine Performing Organization Address City/State/Zipcode Phone Number [facility] DEPARTMENT OF [address] [place] [address] PATHOLOGY AND GENOMIC MEDICINE * Respiratory pathogen panel (09/30/2017 3:22 PM) Respiratory pathogen Negative for all pathogens [facility] DEPARTMENT OF panel tested: PATHOLOGY AND Negative for Adenovirus GENOMIC MEDICINE Negative for Coronavirus HKU1 Negative for Coronavirus [...] Source: Nares Specimen Site: Not specified Specimen Nares - Not specified Performing Organization Address City/[facility]/Zipcode Phone Number [place] [phone] PATHOLOGY AND GENOMIC MEDICINE * Hemoglobin A1c (09/30/2017 1:17 PM) Only the most recent of 3 results within the time period is included. Hemoglobin A1C 6.9 (H) 4.0 - 5.6 % [facility] DEPARTMENT OF Comment: PATHOLOGY AND HbA1c cutoffs for diagnosing GENOMIC MEDICINE diabetes: 4.0% - 5.6%=normal 5.7% - 6.4%=increased risk for diabetes (prediabetes) >=6.5%=diabetes Goals for glycemic control (ADA 2016) < 7.0% Target for non adults with diabetes. More or less stringent targets may be appropriate for individual patients. <7.5% Target for Children and adolescents with type 1 diabetes. Specimen Blood Performing Organization Address City/[facility] Cent[facility] Phone Number [address] [address] PATHOLOGY AND [employer] [facility] * CRITICAL CARE (09/30/2017 12:25 AM) Narrative Performed At Jacek Fuentes DO 09/30/2017 12:25 AM Critical Care Performed by: GINA NESS Authorized by: JACEK FUENTES Critical care provider statement: Critical care time (minutes): 35 Critical care time was exclusive of: Teaching time and separately billable procedures and treating other patients (hypertensive emergency) Critical care was necessary to treat or prevent imminent or life-threatening deterioration of the following conditions: Cardiac failure, circulatory failure, PROJECT SURVEYOR failure or compromise, dehydration, hepatic failure, metabolic crisis, endocrine crisis, respiratory failure, sepsis, shock, toxidrome, trauma and renal failure Critical care was time spent personally by me on the following activities: Blood draw for specimens, development of treatment plan [...] results within the time period is included. Creatine kinase 313 (H) 39 - 308 U/L [facility] DEPARTMENT OF PATHOLOGY AND GENOMIC MEDICINE Specimen Plasma specimen Performing Organization Address City/State/Zipcode Phone Number [facility] DEPARTMENT OF [address] [place] [address] PATHOLOGY AND GENOMIC MEDICINE * Comprehensive metabolic panel (09/29/2017 9:56 PM) Only the most recent of 9 results within the time period is included. Sodium 145 135 - 148 mEq/L [facility] DEPARTMENT OF PATHOLOGY AND GENOMIC MEDICINE Potassium 3.9 3.5 - 5.0 mEq/L [facility] DEPARTMENT OF PATHOLOGY AND GENOMIC MEDICINE Chloride 100 98 - 112 mEq/L [facility] DEPARTMENT OF PATHOLOGY AND GENOMIC MEDICINE CO2 35 (H) 24 - 31 mEq/L [facility] DEPARTMENT OF PATHOLOGY AND GENOMIC MEDICINE Anion gap 10 7 - 15 mEq/L [facility] DEPARTMENT OF Comment: PATHOLOGY AND Starting from January [facility] , anion gap calculation no longer incorporates potassium. Please note the change. BUN 13 6 - 20 mg/dL [facility] DEPARTMENT OF PATHOLOGY AND GENOMIC MEDICINE Creatinine 1.2 0.7 - 1.2 mg/dL [facility] DEPARTMENT OF PATHOLOGY AND GENOMIC MEDICINE Glucose 106 (H) 65 - 99 mg/dL [facility] DEPARTMENT OF PATHOLOGY AND GENOMIC MEDICINE Calcium 8.8 8.3 - 10.2 mg/dL [facility] DEPARTMENT OF PATHOLOGY AND GENOMIC MEDICINE Protein 7.5 6.3 - 8.3 g/dL [facility] DEPARTMENT OF Comment: PATHOLOGY AND GENOMIC MEDICINE 4.6-7.0 g/dL 1 week 4.4-7.6 g/dL 7 months-1year 5.1-7.3 g/dL 1-2 years 5.6-7 .5 g/dL >3 years 6.0-8 .0 g/dL 18-150 6.3-8.3 g/dL Albumin 3.5 3.5 - 5.0 g/dL [facility] DEPARTMENT OF PATHOLOGY AND GENOMIC MEDICINE A/G ratio 0.9 0.7 - 3.8 [facility] DEPARTMENT OF PATHOLOGY AND GENOMIC MEDICINE Alkaline phosphatase 79 40 - 129 U/L [facility] DEPARTMENT OF PATHOLOGY AND GENOMIC MEDICINE AST 31 10 - 50 U/L [facility] DEPARTMENT OF PATHOLOGY AND GENOMIC MEDICINE ALT 24 5 - 50 U/L [facility] DEPARTMENT OF PATHOLOGY AND GENOMIC MEDICINE Total bilirubin 0.6 0.0 - 1.2 mg/dL [facility] DEPARTMENT OF PATHOLOGY AND GENOMIC MEDICINE Specimen Plasma specimen Performing Organization Address City/[facility] [place] [address] PATHOLOGY AND [facility] * CRITICAL CARE (08/31/2017 10:46 AM) Narrative Performed At Wilber Quiñnoes MD 08/31/2017 10:46 AM Critical Care Performed by: WILBER QUIÑONES Authorized by: WILBER QUIÑONES Critical care provider statement: Critical care time (minutes): 35 Critical care time was exclusive of: Separately billable procedures and treating other patients Critical care was necessary to treat or prevent imminent or life-threatening deterioration of the following conditions: hypertensive urgency. Critical care was time spent personally by me on the following activities: Blood draw for specimens, discussions with consultants, development [...] results within the time period is included. Uric acid 10.3 (H) 3.4 - 7.0 mg/dL [facility] DEPARTMENT OF PATHOLOGY AND GENOMIC MEDICINE Specimen Plasma specimen Performing Organization Address City/[facility] Cent[facility]ode Phone Number [facility] [place] [address] PATHOLOGY AND [facility] * Urine eosinophils (08/08/2017 12:24 PM) Only the most recent of 2 results within the time period is included. Eosinophils, urine NONE [facility] DEPARTMENT OF PATHOLOGY AND GENOMIC MEDICINE Specimen Urine Performing Organization Address City/[facility] Centercode Phone Number [facility] DEPARTMENT [address] [address] PATHOLOGY AND GENOMIC MEDICINE * Renin activity (08/08/2017 12:24 PM) Renin activity 31.4 [employer] [facility] Comment: Specimen diluted and results confirmed. INTERPRETIVE INFORMATION: Renin Activity Adult, Normal sodium diet: Supine ................. 0.2-1.6 ng/mL/hr Upright ................ 0.5-4.0 ng/mL/hr Children, Normal sodium diet, Supine: (1-7 days) ..... 2.0-35.0 ng/mL/hr Cord blood [...] angiotensinogen is decreased. See Compliance Statement D: [email or web address] Performed by [facility], [address] [place] [id number] [email or web address], Abhijit Howell MD - Lab. Director Specimen Blood Performing Organization Address [facility] Centercode Phone Number [facility] [address] [place] [address] * Aldosterone, serum (08/08/2017 12:24 PM) Aldosterone 36.6 ng/dL [facility] Comment: INTERPRETIVE INFORMATION: Aldosterone, Serum Reference intervals [...] reference intervals for this test in the [employer] [facility] Test Directory ([email or web address]). Performed by [facility], [address] [place] [id number] [email or web address], Abhijit Howell MD - Lab. Director Specimen Serum Performing Organization Address [facility] Centercode Phone Number [facility] [address] [place] [address] * Sodium level, urine, random (08/08/2017 12:24 PM) Only the most recent of 2 results within the time period is included. Sodium, urine, random 110 mEq/L [facility] DEPARTMENT OF PATHOLOGY AND GENOMIC MEDICINE Specimen Urine Performing Organization Address City/[facility]/[place] [address] PATHOLOGY AND GENOMIC MEDICINE * Protein, urine, random (08/08/2017 12:24 PM) Only the most recent of 2 results within the time period is included. Protein, urine random <4 mg/dL [facility] DEPARTMENT OF PATHOLOGY AND GENOMIC MEDICINE Specimen Urine Performing Organization Address City/[facility]/[place] [address] PATHOLOGY AND [facility] * Potassium, urine, random (08/08/2017 12:24 PM) Only the most recent of 2 results within the time period is included. Potassium, urine, random 26.0 mEq/L [facility] DEPARTMENT OF PATHOLOGY AND GENOMIC MEDICINE Specimen Urine Performing Organization Address City/[facility] [place] [address] PATHOLOGY AND [facility] * Osmolality, urine (08/08/2017 12:24 PM) Only the most recent of 2 results within the time period is included. Osmolality, urine 350 50 - 1,400 mOsm/kg [facility] DEPARTMENT PATHOLOGY AND GENOMIC MEDICINE Specimen Urine Performing Organization Address [facility] [place] [address] PATHOLOGY AND [facility] * Creatinine level, urine, random (08/08/2017 12:24 PM) Only the most recent of 2 results within the time period is included. Creatinine, urine, random 37 mg/dL [facility] DEPARTMENT OF PATHOLOGY AND GENOMIC MEDICINE Specimen Urine Performing Organization Address [facility] [place] [address] PATHOLOGY AND [facility] * Chloride level, urine, random (08/08/2017 12:24 PM) Only the most recent of 2 results within the time period is included. Chloride, urine, random 105 mEq/L [facility] DEPARTMENT OF PATHOLOGY AND GENOMIC MEDICINE Specimen Urine Performing Organization Address [facility] [place] [address] PATHOLOGY AND [facility] * Thyroid stimulating hormone (08/08/2017 12:24 PM) TSH 5.53 (H) 0.27 - 4.20 uIU/mL [facility] DEPARTMENT OF PATHOLOGY AND GENOMIC MEDICINE Specimen Plasma specimen Performing Organization Address [facility] [place] [address] PATHOLOGY AND [facility] * Parathyroid hormone (08/08/2017 12:24 PM) PTH 84 (H) 15 - 65 pg/mL [facility] DEPARTMENT OF PATHOLOGY AND GENOMIC MEDICINE Specimen Blood Performing Organization Address [facility]/[place] [address] PATHOLOGY AND GENOMIC MEDICINE * Osmolality, serum (08/08/2017 12:24 PM) Osmolality 301 (H) 275 - 295 mOsm/kg [facility] DEPARTMENT OF PATHOLOGY AND GENOMIC MEDICINE Specimen Blood Performing Organization Address City/[facility] [place] [address] PATHOLOGY AND GENOMIC MEDICINE * CBC hemogram (08/08/2017 4:15 AM) Only the most recent of 2 results within the time period is included. WBC 8.87 4.50 - 11.00 k/uL [facility] DEPARTMENT OF PATHOLOGY AND GENOMIC MEDICINE RBC 5.88 4.40 - 6.00 m/uL [facility] DEPARTMENT OF PATHOLOGY AND GENOMIC MEDICINE HGB 15.1 14.0 - 18.0 g/dL [facility] DEPARTMENT OF PATHOLOGY AND GENOMIC MEDICINE HCT 49.3 41.0 - 51.0 % [facility] DEPARTMENT OF PATHOLOGY AND GENOMIC MEDICINE MCV 83.8 82.0 - 100.0 fL [facility] DEPARTMENT OF PATHOLOGY AND GENOMIC MEDICINE MCH 25.7 (L) 27.0 - 34.0 pg [facility] DEPARTMENT OF PATHOLOGY AND GENOMIC MEDICINE MCHC 30.6 (L) 31.0 - 37.0 g/dL [facility] DEPARTMENT OF PATHOLOGY AND GENOMIC MEDICINE RDW - SD 46.4 37.0 - 55.0 fL [facility] DEPARTMENT OF PATHOLOGY AND GENOMIC MEDICINE MPV 11.3 8.8 - 13.2 fL [facility] DEPARTMENT OF PATHOLOGY AND GENOMIC MEDICINE Platelet count 195 150 - 400 k/uL [facility] DEPARTMENT OF PATHOLOGY AND GENOMIC MEDICINE Nucleated RBC 0.00 /100 WBC [facility] DEPARTMENT OF PATHOLOGY AND GENOMIC MEDICINE Specimen Blood Performing Organization Address City/[facility]ercode Phone Number [facility] [place] [address] PATHOLOGY AND GENOMIC MEDICINE * CT Abdomen Pelvis Wo Contrast (08/03/2017 8:26 PM) Only the most recent of 2 results within the time period is included. Narrative Performed At EXAMINATION: CT ABDOMEN PELVIS WO CONTRAST [facility] CLINICAL HISTORY: RUQ abd pain TECHNIQUE: Multiple [...] There is hardware in the lumbar spine. [facility]-[id number] Procedure Note [facility], Radiology Results Incoming - 08/03/2017 8:58 [...] There is hardware in the lumbar spine. [facility]-[id number] Performing Organization Address City/State/Zipcode Phone Number [facility] [address] [place] [address] * CRITICAL CARE (08/01/2017 8:54 AM) Narrative Performed At Neil Patel MD 08/01/2017 8:54 AM Critical Care Performed by: NEIL PATEL Authorized by: NEIL PATEL Critical care provider statement: Critical care time (minutes): 30 Critical care time was exclusive of: Separately billable procedures and treating other patients and teaching time Critical care was necessary to treat or prevent imminent or life-threatening deterioration of the following conditions: Circulatory failure Critical care was time spent personally by me on the following activities: Development of treatment plan with patient or surrogate, [...] Abdomen Acute Inc Chest (07/31/2017 6:34 PM) Narrative Performed At EXAMINATION: XR ABDOMEN ACUTE INC CHEST [facility] CLINICAL HISTORY: Bowel ileus COMPARISON: None. FINDINGS: Heart size is enlarged. There is vascular congestion with basal volume loss and fluid on each side. There are postoperative changes in the lower lumbar spine. There are also surgical clips in the right upper quadrant. Bowel gas pattern is nonspecific. IMPRESSION: As above [facility]-[id number] Procedure Note Interface, Radiology Results Incoming - [...] gas pattern is nonspecific. IMPRESSION: As above [facility]-[id number] Performing Organization Address City/[facility]/Zipcode Phone Number [facility] [address] [place] [address] * Ionized calcium (07/19/2017 1:20 AM) Only the most recent of 4 results within the time period is included. pH 7.60 [facility] DEPARTMENT OF PATHOLOGY AND GENOMIC MEDICINE Ionized calcium 1.07 (L) 1.11 - 1.32 mmol/L [facility] DEPARTMENT OF PATHOLOGY AND GENOMIC MEDICINE Specimen Plasma specimen Performing Organization Address City/[facility]/Zipcode Phone Number [facility] DEPARTMENT OF [address] [place] [address] PATHOLOGY AND GENOMIC MEDICINE * Hepatic function panel (07/19/2017 1:20 AM) Only the most recent of 2 results within the time period is included. Albumin 2.8 (L) 3.5 - 5.0 g/dL [facility] DEPARTMENT OF PATHOLOGY AND GENOMIC MEDICINE Total bilirubin 1.0 0.0 - 1.2 mg/dL [facility] DEPARTMENT OF PATHOLOGY AND GENOMIC MEDICINE Bilirubin direct 0.4 (H) 0.0 - 0.3 mg/dL [facility] DEPARTMENT OF PATHOLOGY AND GENOMIC MEDICINE Alkaline phosphatase 45 40 - 129 U/L [facility] DEPARTMENT OF PATHOLOGY AND GENOMIC MEDICINE Protein 5.7 (L) 6.3 - 8.3 g/dL [facility] DEPARTMENT OF Comment: PATHOLOGY AND GENOMIC MEDICINE 4.6-7.0 g/dL 1 week 4.4-7.6 g/dL 7 months-1year 5.1-7.3 g/dL 1-2 years 5.6-7 .5 g/dL >3 years 6.0-8 .0 g/dL 18-150 6.3-8.3 g/dL ALT 65 (H) 5 - 50 U/L [facility] DEPARTMENT OF PATHOLOGY AND GENOMIC MEDICINE AST 46 10 - 50 U/L [facility] DEPARTMENT OF PATHOLOGY AND GENOMIC MEDICINE Specimen Plasma specimen Performing Organization Address City/[facility] Centercode Phone Number [address] [address] PATHOLOGY AND GENOMIC MEDICINE * XR Abdomen 1 Vw Portable (07/17/2017 3:06 PM) Narrative Performed At EXAMINATION: XR ABDOMEN 1 VW PORTABLE [facility] CLINICAL HISTORY: Check feeding tube placement COMPARISON: None. IMPRESSION: There is a nonspecific bowel gas pattern. No free air is identified. Nasogastric tube terminates in the body the stomach Postoperative changes of lumbar spine The gallbladder has been removed [facility]-[id number] Procedure Note Interface, Radiology Results Incoming - 07/17/2017 4:02 PM CDT EXAMINATION: XR ABDOMEN 1 VW PORTABLE CLINICAL HISTORY: Check feeding tube placement COMPARISON: None. IMPRESSION: There is a nonspecific bowel gas pattern. No free air is identified. Nasogastric tube terminates in the body the stomach Postoperative changes of lumbar spine The gallbladder has been removed [facility]-[id number] Performing Organization Address City/[facility]/Zipcode Phone Number [address] [address] * Surgical pathology request (07/17/2017 12:10 PM) [facility] DEPARTMENT OF PATHOLOGY AND GENOMIC MEDICINE Surgical pathology report See link below for PDF Lab [facility] DEPARTMENT OF Report PATHOLOGY AND GENOMIC MEDICINE Performing Organization Address City/[facility]/Zipcode Phone Number [address] [address] PATHOLOGY AND GENOMIC MEDICINE * Ionized calcium, arterial (07/17/2017 10:10 AM) Ionized calcium, arterial 0.88 (L)Comment: Specimen is 1.11 - 1.32 mmol/L [facility] DEPARTMENT OF slightly hemolyzed. Interpret PATHOLOGY AND results accordingly. GENOMIC MEDICINE Specimen Blood Performing Organization Address City/State/Zipcode Phone Number [facility] [place] [address] PATHOLOGY AND GENOMIC MEDICINE * Lactic acid level (07/17/2017 10:10 AM) Lactic acid 1.8 0.5 - 2.2 mmol/L [facility] DEPARTMENT OF PATHOLOGY AND GENOMIC MEDICINE Specimen Plasma specimen Performing Organization Address City/State/Zipcode Phone Number [facility] [place] [address] PATHOLOGY AND GENOMIC MEDICINE * Type and screen (07/17/2017 4:30 AM) ABO grouping O [facility] DEPARTMENT OF PATHOLOGY AND GENOMIC MEDICINE Rh type POS [facility] DEPARTMENT OF PATHOLOGY AND GENOMIC MEDICINE Antibody screen (gel) NEG [facility] DEPARTMENT OF PATHOLOGY AND GENOMIC MEDICINE Specimen Blood Performing Organization Address City/[facility]ercode Phone Number [facility] [place] [address] PATHOLOGY AND GENOMIC MEDICINE * HCV qualitative by PCR (07/14/2017 4:00 AM) HCV PCR result Detected (A) Not-Detected [facility] DEPARTMENT OF PATHOLOGY AND GENOMIC MEDICINE HCV RNA qualitative See link below for PDF Lab [facility] DEPARTMENT OF ReportComment: Case Number: PATHOLOGY AND [id number] GENOMIC MEDICINE Performing Organization Address City/[facility]/Zipcode Phone Number [facility] DEPARTMENT OF [address] [place] [address] PATHOLOGY AND GENOMIC MEDICINE * Hepatitis C antibody (07/14/2017 4:00 AM) Hepatitis C Ab Reactive (A) Non-reactive [facility] DEPARTMENT OF Comment: PATHOLOGY AND HCV antibody testing initially GENOMIC MEDICINE Reactive. Confirmation by HCV RNA PCR will be performed and reported separately when completed. Repeat HCV RNA PCR will not be performed if done within 30 days. Specimen Blood Performing Organization Address City/State/Zipcode Phone Number [facility] [place] [address] PATHOLOGY AND GENOMIC MEDICINE * Hepatitis C virus quantitative by PCR (07/14/2017 4:00 AM) Hepatitis C quantitative, 13,900,000 (A) Not-Detected IU/mL [facility] DEPARTMENT OF PCR PATHOLOGY AND GENOMIC MEDICINE Hepatitis C quantitative, See link below for PDF Lab [facility] DEPARTMENT OF PCR ReportComment: Case Number: PATHOLOGY AND [id number] GENOMIC MEDICINE Performing Organization Address City/State/Zipcode Phone Number [facility] DEPARTMENT OF [address] [place] [address] PATHOLOGY AND GENOMIC MEDICINE * MRI CHOLANGIOGRAM W WO CONTRAST (07/13/2017 10:04 PM) Narrative Performed At [facility] EXAMINATION: MRI CHOLANGIOGRAM W WO CONTRAST CLINICAL [...] No evidence of biliary dilatation or choledocholithiasis. [facility]-[id number] Procedure Note Interface, Radiology Results Incoming - 07/13/2017 10:56 PM [...] No evidence of biliary dilatation or choledocholithiasis. [facility]-[id number] Performing Organization Address [facility]/Zipcode Phone Number [facility] [address] [place] [address] * [place] Hepatobiliary (HIDA Scan) (07/13/2017 3:07 PM) Narrative Performed At PROCEDURE: [facility] IND[facility]: Abdominal pain. TECHNIQUE: The patient was [...] 2. The common bile duct is patent. [facility]-[id number] Procedure Note Interface, Radiology Results Incoming - 07/13/2017 3:23 PM [...] 2. The common bile duct is patent. [facility]-[id number] Performing Organization Address [facility] Centercode Phone Number [facility] [address] [place] [address] * Lipase level (07/13/2017 4:00 AM) Lipase 18 13 - 60 U/L [facility] DEPARTMENT OF PATHOLOGY AND GENOMIC MEDICINE Specimen Plasma specimen Performing Organization Address City/[facility]/Zipcode Phone Number [address] [address] PATHOLOGY AND GENOMIC MEDICINE * Amylase level (07/13/2017 4:00 AM) Amylase 22 13 - 53 U/L [facility] DEPARTMENT OF PATHOLOGY AND GENOMIC MEDICINE Specimen Plasma specimen Performing Organization Address City/[facility]/Zipcode Phone Number [address] [address] PATHOLOGY AND GENOMIC MEDICINE * Lipid panel (07/13/2017 4:00 AM) Only the most recent of 2 results within the time period is included. Cholesterol 95 <200 mg/dL [facility] DEPARTMENT OF PATHOLOGY AND GENOMIC MEDICINE Triglycerides 73 <150 mg/dL [facility] DEPARTMENT OF PATHOLOGY AND GENOMIC MEDICINE HDL cholesterol 23 (L) >40 mg/dL [facility] DEPARTMENT OF PATHOLOGY AND GENOMIC MEDICINE LDL cholesterol 54Comment: Result obtained by <100 mg/dL [facility] DEPARTMENT OF direct LDL measurement PATHOLOGY AND GENOMIC MEDICINE Lipid panel SeeBelow [facility] DEPARTMENT OF interpretation Comment: PATHOLOGY AND Total Cholesterol GENOMIC MEDICINE (mg/dL) <200 Desirable 200-239 Borderline -high >=240 High Triglycerides (mg/dL) <150 Normal 150-199 Borderline -high 200-499 High >=500 Very high HDL Cholesterol (mg/dL) <40 Low (male) <40 Low (female) LDL Cholesterol (mg/dL) <100 Optimal 100-129 Near or above optimal 130-159 Borderline -high 160-189 High >=190 Very high Risk Catergories [...] persons with high triglycerides (>=200 mg/dL) Specimen Plasma specimen Performing Organization Address City/State/Zipcode Phone Number [facility] DEPARTMENT OF [address] [place] [address] PATHOLOGY AND GENOMIC MEDICINE * US Gallbladder (07/13/2017 12:54 AM) Narrative Performed At EXAMINATION: US GALLBLADDER [facility] CLINICAL HISTORY: Cholecystitis COMPARISON: None. FINDINGS: Gallbladder: [...] Common bile duct sonographically within normal limits. [id number] Procedure Note Hm Interface, Radiology Results Incoming - 07/13/2017 1:02 [...] Common bile duct sonographically within normal limits. [facility]-[id number] Performing Organization Address City/State/Zipcode Phone Number [facility] [address] [place] [address] * ECG ED Preliminary Interpretation - NOT AN ORDER (07/12/2017 10:18 PM) Narrative Performed At [facility] MD Stacey 07/12/2017 10:18 PM ECG ED Preliminary Interpretation - Not an Order Performed by: SANDRA BANDA Authorized by: CHA IBARRA ECG reviewed by ED Physician in the absence of a car varnisher: yes Previous ECG: Previous ECG: Compared to current Comparison ECG info: 05/05/2017 02:54 Similarity: No change Interpretation: Interpretation: abnormal Rate: ECG rate: 93 bpm ECG rate assessment: normal Rhythm: Rhythm: sinus rhythm Ectopy: Ectopy: none QRS: QRS axis: Left Conduction: Conduction: normal ST segments: ST segments: Non-specific T waves: T waves: non-specific Other findings: Other findings: MAI * Cv ecg exercise stress (no imaging) (05/05/2017 3:06 PM) Resting HR 75 [facility] MUSE Resting BP [facility] MUSE Peak MET Achieved 1.0 [facility] MUSE Protocol Name REGCHIARA H MUSE Time in Exercise Phase 00:01:00 [facility]USE Max Heart Rate 100 [facility] Max Predicted Heart Rate 165 [facility] MUSE Target HR Formula (220 - Age)*100% [facility]USE Test Indication CHEST PAIN [facility] Arrhy During Ex [facility] ECG Interp Before EX [facility] ECG Interp During Ex [facility] Ex Summary Comment [facility] MUSE Overall HR Response to [facility] MUSE Exercise Overall BP Response To H MUSE Exercise Reason for Termination [facility] MUSE Stress Test Impression Waveform interpreted in report [facility] MUSE associated with image study. No interpretation is provided as part of this Stress ECG report.- Performing Organization Address City/State/Zipcode Phone Number [facility] MUSE [address] [phone] * Nm myocardial perfusion (05/05/2017 8:17 AM) Narrative Performed At [facility] [address] [place] [address] Myocardial Perfusion Imaging Report Stress ECG tracings are available in [employer], [employer] and [employer] All ECG interpretations are included in this report Pat.Name: SAM ISAAC Pat.ID: [id number] .Date: 05/05/2017 Refer.MD: AMRCOS PRIDE MD Exam Time: 8:17:00 AM Study Type:Myocardial Perfusion Imaging Height: 70in Weight: 285lb BSA: 2.43 m2 Age: 2 1960,56Y Sex: MALE BP: 142/86 HR: 73 bpm Nuclear Tech: MONAE Rebolledo Pat. Stat.:Inpatient Room: J807 Nuclear Event ID:[id number] Order ID: [id number] Reason for Study:Chest pain, unspecified* History / Clinical:Congestive heart failure, Coronary artery disease, Hyperlipidemia, Hypertension, Obesity Procedures:Two Day Stress / Rest Race: -[place] Risk Factors:Known Coronary Atherosclerosis, Hyperlipidemia, Hypertension, Obesity Clinical Symptoms:Regadenoson Physical Exam:S1, S2, clear lungs Surgery: Serum K+ Date, 3.505/05/17, Troponin I Date, 1)neg x 2 -05/05/17 2)/ 3)/, BUN/Creatinine Date, 07/29.005/05/17 Medications:Clonidine, [...] AM CDT [facility] [address] [place] [address] Myocardial Perfusion Imaging Report Stress ECG tracings are available in [employer], [employer] and [employer] All ECG interpretations are included in this report Pat.Name: SAM ISAAC.ID: [id number] .Date: 05/05/2017 Refer.MD: MARCOS PRIDE MD Exam Time: 8:17:00 AM Study Type:Myocardial Perfusion Imaging Height: 70in Weight: 285lb BSA: 2.43 m2 Age: 2 1960,56Y Sex: MALE BP: 142/86 HR: 73 bpm Nuclear Tech:Robert Jolley [facility] Pat. Stat.:Inpatient Room: J807 Nuclear Event ID:[id number] Order ID: [id number] Reason for Study:Chest pain, unspecified* History / Clinical:Congestive heart failure, Coronary artery disease, Hyperlipidemia, Hypertension, Obesity Procedures:Two Day Stress / Rest Race: -[place] Risk Factors:Known Coronary Atherosclerosis, Hyperlipidemia, Hypertension, Obesity Clinical Symptoms:Regadenoson Physical Exam:S1, S2, clear lungs Surgery: Serum K+ Date, 3.5/05/05/17, Troponin I Date, 1)neg x -05/05/17 2)/ 3)/, BUN/Creatinine Date, 07/29. Medications:Clonidine, Coreg, Lipitor, Lisinopril, Hydralazine, Imdur SUMMARY: [...] Signed 05/06/2017 10:59 AM Carlton Wing MD Performing Organization Address City/State/Zipcode Phone Number [facility] [address] [place] [address] * XR Chest 2 Vw (05/03/2017 4:57 PM) Narrative Performed At Examination: XR CHEST 2 VW [facility] Clinical history: "R06.02 Shortness of breath, r06.02" Comparison: 04/15/2017 IMPRESSION: There is improved aeration of both lung bases. Faint left anterior, basilar pleural thickening versus a small loculated left pleural effusion cannot be excluded. Otherwise, there are no apparent infiltrates or pneumothoraces. The borderline prominent cardiomediastinal silhouette and the imaged bones are stable in appearance. [id number] Procedure Note Interface, Radiology Results Incoming - 05/03/2017 5:55 [...] the imaged bones are stable in appearance. [id number] Performing Organization Address City/State/Zipcode Phone Number [id number] [place] [address] after 04/21/2017 Insurance Payer Benefit Subscriber ID Type Phone Address Plan / Group [facility] MEDICAID [facility] xxxxxxxxx HMO COMM STAR+ [id number] Guarantor Name Account Relation to Date of Phone Billing Address Type Patient SAM ISAAC Personal/F Self 1960 Home: [address] [place] [address] [id number]
== END 2018-04-22 21:20 | disposition home or self-care (01) ==
LOC: ER 15:22
DX: R07.89 Other chest pain (principal); R06.00 Dyspnea, unspecified; J44.1 Chronic obstructive pulmonary disease with (acute) exacerbation; I50.9 Heart failure, unspecified; I10 Essential (primary) hypertension; E11.9 Type 2 diabetes mellitus without complications; E78.5 Hyperlipidemia, unspecified; F20.9 Schizophrenia, unspecified; Z95.0 Presence of cardiac pacemaker
CPT/HCPCS: 36415; 71045; 80053; 81001; 82550; 82553; 84484; 85025; 85610; 85730; 93005; 94640; 99284; J2270

== ENCOUNTER 2018-05-14 13:17 | Inpatient (IN) | payer OTHER ==
[~2018-05-14] VITALS: Ht 177.8 cm; Wt 119.7 kg
[2018-05-14] MEDS ORDERED: SODIUM CHLORIDE 0.9% 500ML 500 ML IV STA (13:19)
[2018-05-14] MEDS ORDERED: INSULIN REGULAR, HUMAN 100 UNIT/1 ML 3ML VIAL IV ONE (13:30)
[2018-05-14] MEDS ORDERED: ASPIRIN 325 MG TAB PO ONE (13:30)
[2018-05-14] MEDS ORDERED: NITROGLYCERIN 2% OINT 1 GM PKT TOP ONE (13:30)
[2018-05-14] MEDS ORDERED: ASPIRIN 81 MG CHEW TAB PO ONE (13:30)
[2018-05-14] MEDS ORDERED: ONDANSETRON HCL INJ 2 MG/ML VIAL IV PRN ×2 (13:30→15:15)
[2018-05-14] MEDS ORDERED: FAMOTIDINE 20 MG/2 ML VIAL IV ONE (13:30)
[2018-05-14] MEDS ORDERED: METOPROLOL TARTRATE INJ 1 MG/ML VIAL IV SCH (13:30)
[2018-05-14 13:37] LABS: BASOPHILS % 0.3 % (0.0-1.0); EOSINOPHILS # (AUTO) 0.1 (0.0-0.4); EOSINOPHILS % 1.4 % (0.0-6.0); HEMATOCRIT 40.7 % (38.2-49.6); HEMOGLOBIN 12.7 g/dL (14.0-18.0); LYMPHOCYTES # (AUTO) 3.5 (1.0-3.2); LYMPHOCYTES % 36.6 % (18.0-39.1); MEAN CORPUSCULAR HGB CONC 31.2 g/dL (31-35); MEAN CORPUSCULAR VOLUME 83.2 fL (81-99); MONOCYTES # (AUTO) 0.6 (0.2-0.8); MONOCYTES % 6.4 % (4.4-11.3); NEUTROPHILS # (AUTO) 5.2 (2.1-6.9); NEUTROPHILS % 54.9 % (38.7-80.0); PLATELET COUNT 162 x10e3/uL (140-360); RED BLOOD COUNT 4.89 x10e6/uL (4.3-5.7)
[2018-05-14] MEDS ORDERED: ELIQUIS PO (14:09)
[2018-05-14] MEDS ORDERED: IBUPROFEN 200 MG TAB PO PRN (14:15)
[2018-05-14] MEDS ORDERED: ENALAPRILAT IV INJ 1.25 MG/ML VIAL IV PRN ×2 (14:15→15:15)
[2018-05-14] MEDS ORDERED: HYDROCODONE/APAP 7.5MG-325MG 1 EA TAB PO PRN (14:15)
[2018-05-14] MEDS ORDERED: ZOLPIDEM TARTRATE 5 MG TAB PO PRN ×2 (14:15→21:00)
[2018-05-14] MEDS ORDERED: ACETAMINOPHEN 325 MG TAB PO PRN ×2 (14:15→15:15)
[2018-05-14] MEDS ORDERED: DIPHENHYDRAMINE HCL INJ 50 MG/ML VIAL IV PRN ×2 (14:15→15:15)
[2018-05-14] MEDS ORDERED: PROMETHAZINE 25MG/ NS 50ML (IV) IV PRN (14:15)
[2018-05-14] MEDS ORDERED: MORPHINE SULFATE INJ 4 MG/ML INJ IV PRN (14:15)
--- NOTE | 2018-05-14 14:54 | Diagnostic Imaging Report ---
PROCEDURE: A single AP view of the chest. COMPARISON: Patients [facility], , CHEST SINGLE (NOT PORTABLE), 04/22/2018, 15:53. INDICATIONS: CHEST PAIN, CHF FINDINGS: Lines/tubes: Stable left upper chest single-lead cardiac device. Lungs: Lungs are well-inflated. No consolidation. Mild perihilar interstitial opacities consistent with interstitial pulmonary edema. Pleura: Questionable left-sided pleural effusion. Heart and mediastinum: Stable enlargement of the cardiac silhouette. Central pulmonary venous congestion. Bones: No acute bony abnormality. IMPRESSION: 1. enlarged cardiac silhouette, central pulmonary venous congestion and perihilar interstitial edema. Questionable right left-sided pleural effusion. Findings likely represent decompensated CHF. Dejan Ceron M.D. Dictated by: Dejan Ceron M.D. on 05/14/2018 at 14:52 Electronically approved by: Dejan Ceron M.D. on 05/14/2018 at 14:52
[2018-05-14] MEDS ORDERED: DIPHENHYDRAMINE HCL 25 MG CAP PO PRN (15:15)
[2018-05-14] MEDS ORDERED: SODIUM CHLORIDE FLUSH 10 ML SYR INJ PRN (15:15)
[2018-05-14] MEDS ORDERED: HYDRALAZINE HCL 20 MG/ML VIAL IV PRN (15:15)
[2018-05-14] MEDS ORDERED: DEXTROSE 50% SYRINGE 50 ML IV PRN (15:30)
[2018-05-14] MEDS ORDERED: INSULIN DETEMIR 100 UNIT/ML PEN SQ NR (15:45)
[2018-05-14] MEDS: INSULIN REGULAR, HUMAN 100 UNIT/1 ML 3ML VIAL SQ SCH ×2 (16:30→20:52)
[2018-05-14] MEDS ORDERED: FAMOTIDINE 20 MG TAB PO SCH (16:30)
[2018-05-14 16:37] LABS: ANION GAP 13.5 mmol/L (8-16); BLOOD UREA NITROGEN 9 mg/dL (8-26); BUN/CREATININE RATIO 9 (6-25); CARBON DIOXIDE 34 mmol/L (22-32); CHLORIDE 92 mmol/L (101-111); EST GLOMERULAR FILTRATION RATE > 60 ML/MIN (60-); POTASSIUM 3.5 mmol/L (3.6-5.1); SODIUM 136 mmol/L (136-144)
[2018-05-14 16:39] LABS: GLUCOSE 605 mg/dL (74-118)
[2018-05-14 16:48] VITALS: BP 110/60
[2018-05-14] MEDS: FAMOTIDINE 20 MG TAB PO SCH (17:00)
[2018-05-14 17:35] VITALS: BP 110/60
[2018-05-14 21:11] LABS: ALANINE AMINOTRANSFERASE 27 IU/L (0-55); ALBUMIN 4.2 g/dL (3.5-5.0); ALBUMIN/GLOBULIN RATIO 1.5 (0.8-2.0); ALKALINE PHOSPHATASE 99 IU/L (40-150); AMYLASE 53 U/L (25-125); CALCIUM 9.2 mg/dL (8.4-10.2); CREATINE KINASE 69 IU/L (30-200); LIPASE 15 U/L (8-78); MAGNESIUM 2.2 MG/DL (1.3-2.1)
[2018-05-14 21:28] VITALS: BP 118/76
[2018-05-14] MEDS: FUROSEMIDE INJ 10 MG/ML 4 ML VIAL IV SCH (23:52)
[2018-05-15] VITALS (8 sets, daily range): BP systolic 105–177; BP diastolic 71–102
[2018-05-15 01:39] LABS: CREATINE KINASE MB 1.6 ng/mL (0-5.0)
[2018-05-15 06:06] LABS: CREATINE KINASE MB 1.7 ng/mL (0-5.0)
[2018-05-15] MEDS: INSULIN REGULAR, HUMAN 100 UNIT/1 ML 3ML VIAL SQ SCH ×4 (07:30→20:30)
[2018-05-15] MEDS ORDERED: HYDROCODONE/APAP 5MG-325MG TAB PO PRN (08:00)
[2018-05-15] MEDS: FAMOTIDINE 20 MG TAB PO SCH ×2 (08:19→15:32)
[2018-05-15] MEDS: HYDRALAZINE HCL 25 MG TAB PO SCH ×3 (08:19→20:30)
[2018-05-15] MEDS: FUROSEMIDE INJ 10 MG/ML 4 ML VIAL IV SCH ×2 (08:19→16:29)
[2018-05-15] MEDS: APIXABAN 5 MG TABLET PO SCH ×2 (08:19→16:29)
[2018-05-15] MEDS: GLIMEPIRIDE 2 MG TAB PO SCH (08:19)
[2018-05-15] MEDS ORDERED: POTASSIUM CHLORIDE 20 MEQ TAB CR PO STA (08:54)
[2018-05-15] MEDS ORDERED: NON-FORMULARY MEDICATION (Glimepiride 1 MG) PO SCH (09:00)
[2018-05-15] MEDS ORDERED: ELIQUIS 5 MG PO SCH (09:00)
--- NOTE | 2018-05-15 10:04 | Consultation ---
DATE OF CONSULTATION: May 14, 2018 REASON FOR CONSULTATION: CHF. HPI: This is a 57-year-old male that presented with chest pain and shortness of breath. According to the patient, since last week he has been having shortness of breath that gets worse with activity. He also complained of left substernal chest pain that feels like dull tightness on the right and center of the chest on the scale of 5/10 with no radiation. He stated that shortness of breath got worse that he decided to come into the emergency room for evaluation. He has a history of chronic systolic CHF and has been in the hospital on multiple occasions. He also has been on Eliquis for history of PE and DVT to bilateral upper extremities. He denies any palpitations, any dizziness, any diaphoresis, or headache. Troponins times 3 were negative. BNP was [address] no [address] abnormalities. PAST MEDICAL HISTORY: CKD, schizophrenia, GERD, asthma, COPD, obesity, chronic systolic CHF, cardiomyopathy, CAD, hypertension, hyperlipidemia, diabetes, PE on the left lung, and DVT to bilateral upper extremities. PAST SURGICAL HISTORY: Cholecystectomy, ICD placement, and recent cardiac catheterization early this year at [facility]. FAMILY HISTORY: Positive for hypertension. SOCIAL HISTORY: He quit smoking. He lives at home with the and he uses CPAP machine at night. MEDICATIONS: See med list. ALLERGIES: HE IS NOT ALLERGIC TO ANY MEDICATION. REVIEW OF SYSTEMS: Negative except those mentioned above. Positive for shortness of breath and chest pain. PHYSICAL EXAMINATION VITAL SIGNS: Temperature 98, heart rate 94, blood pressure 129/81, respirations 18, and oxygen saturation 97% on room air. GENERAL: He is awake, alert, and oriented times 3. HEENT: Mucous membranes are moist. NECK: Supple. LUNGS: Bilateral with decreased breath sounds. CARDIOVASCULAR: S1 and S2 present. ABDOMEN: Soft. NEUROLOGIC: Intact. EXTREMITIES: No edema. LABS: Sodium 136, potassium 3.5, chloride 92, CO2 of 34, BUN 9, creatinine 1.0, and glucose 605. White blood cell 9.52, hemoglobin 12.5, hematocrit 40.7, and platelet 162,000. IMPRESSIONS 1. Chronic systolic congestive heart failure exacerbation. 2. Chest pain. 3. Coronary artery disease with implantable cardioverter-defibrillator. 4. Chronic obstructive pulmonary disease. 5. Diabetes. 6. Hypertension. 7. History of schizophrenia. 8. History of pulmonary embolus and deep venous thrombosis to upper extremities. PLAN: He had recent echocardiogram in October 2017 with impaired systolic function, EF 25% to 30%. We will go ahead and continue diuretic, beta mauricio, and SAVANNA inhibitor. Will put him on 1.5 L fluid restriction and low-salt diet. He has been on Eliquis for DVT and PE. Will continue the same. He had recent cardiac catheterization at the [facility] early this year. His blood sugar was so high, could be the cause of the chest pain and he has been noncompliant with diet and has been counseled on low-salt diet. Further cardiac workup pending clinical course. Thank you for this consultation. Dictated by Suzy Petty NP Job#: [id number] CF
[2018-05-15] MEDS ORDERED: MORPHINE SULFATE INJ 4 MG/ML INJ IV PRN (14:00)
[2018-05-15] MEDS: ATORVASTATIN 10 MG TAB PO SCH (20:30)
[2018-05-15] MEDS: QUETIAPINE FUMARATE 100 MG TAB PO SCH (20:30)
[2018-05-16] VITALS (8 sets, daily range): BP systolic 114–176; BP diastolic 65–108
[2018-05-16] MEDS: CLONIDINE HCL 0.1 MG TAB PO PRN (01:58)
[2018-05-16 04:00] LABS: BASOPHILS % 0.5 % (0.0-1.0); EOSINOPHILS # (AUTO) 0.2 (0.0-0.4); EOSINOPHILS % 2.3 % (0.0-6.0); HEMATOCRIT 45.1 % (38.2-49.6); HEMOGLOBIN 13.5 g/dL (14.0-18.0); LYMPHOCYTES % 36.7 % (18.0-39.1); MEAN CORPUSCULAR HEMOGLOBIN 25.8 pg (28-32); MEAN CORPUSCULAR HGB CONC 29.9 g/dL (31-35); MEAN CORPUSCULAR VOLUME 86.1 fL (81-99); MONOCYTES # (AUTO) 0.7 (0.2-0.8); NEUTROPHILS # (AUTO) 4.3 (2.1-6.9); PLATELET COUNT 183 x10e3/uL (140-360); RED BLOOD COUNT 5.24 x10e6/uL (4.3-5.7); RED CELL DISTRIBUTION WIDTH 13.2 % (11.7-14.4)
[2018-05-16 04:21] LABS: ANION GAP 12.6 mmol/L (8-16); BLOOD UREA NITROGEN 12 mg/dL (7-26); BUN/CREATININE RATIO 11 (6-25); CARBON DIOXIDE 38 mmol/L (22-29); CHLORIDE 94 mmol/L (98-107); CREATININE, SERUM 1.06 mg/dL (0.72-1.25); EST GLOMERULAR FILTRATION RATE > 60 ML/MIN (60-); GLUCOSE 223 mg/dL (74-118); POTASSIUM 3.6 mmol/L (3.5-5.1); SODIUM 141 mmol/L (136-145)
[2018-05-16] MEDS: INSULIN REGULAR, HUMAN 100 UNIT/1 ML 3ML VIAL SQ SCH ×4 (07:30→20:33)
[2018-05-16] MEDS: APIXABAN 5 MG TABLET PO SCH ×2 (08:31→16:32)
[2018-05-16] MEDS: FAMOTIDINE 20 MG TAB PO SCH ×2 (08:31→16:32)
[2018-05-16] MEDS: LISINOPRIL 2.5 MG TAB PO SCH (08:31)
[2018-05-16] MEDS: GLIMEPIRIDE 2 MG TAB PO SCH (08:31)
[2018-05-16] MEDS: HYDRALAZINE HCL 25 MG TAB PO SCH ×3 (08:31→20:30)
[2018-05-16] MEDS: FUROSEMIDE INJ 10 MG/ML 4 ML VIAL IV SCH ×2 (08:31→16:32)
[2018-05-16] MEDS: POLYETHYLENE GLYCOL 3350 17 GM PACK PO SCH ×2 (10:00→16:32)
[2018-05-16] MEDS: DOCUSATE SODIUM 100 MG CAP PO SCH ×2 (10:00→16:32)
[2018-05-16] MEDS ORDERED: SPIRONOLACTONE 25 MG TAB PO ONE (10:00)
--- NOTE | 2018-05-16 16:43 | Diagnostic Imaging Report ---
PROCEDURE:ABDOMINAL ULTRASOUND COMPARISON:[facility], CT, CT ABDOMEN/PELVIS W, 03/20/2018, 17:57. INDICATIONS:ABDOMEN PAIN TECHNIQUE: Eduardo-scale and color sonographic images were obtained of the abdomen in transverse and sagittal planes. FINDINGS:Exam limited by patient's large body habitus. Liver: 15.5 cm in length in right midclavicular line. Increased echogenicity. No masses. Main portal vein: 1.0 cm, hepatopetal flow Gallbladder: Absent Common Bile Duct: 0.6 cm Sonographic Lepe's sign: Negative Right kidney: 10.4 cm Left kidney: 10.3 cm Normal echogenicity. No hydronephrosis, stones, or focal lesions. Spleen: 10.3 cm. No focal lesions. Pancreas: Obscured by overlying bowel gas. Inferior vena cava: Patent Aorta: Proximal portion is within normal limits. Mid and distal portions are obscured by bowel gas. Ascites: None CONCLUSION: 1. Exam limited by patient body habitus and overlying bowel gas. The mid and distal portions of the aorta and the pancreas are obscured 2. Diffuse hepatic steatosis. No focal lesions. Dejan Ceron M.D. Dictated by: Dejan Ceron M.D. on 05/16/2018 at 16:48 Electronically approved by: Dejan Ceron M.D. on 05/16/2018 at 16:48
[2018-05-16] MEDS: ALBUTEROL/IPRATROPIUM 3 ML NEB NEB SCH (19:20)
[2018-05-16] MEDS: ATORVASTATIN 10 MG TAB PO SCH (20:30)
[2018-05-16] MEDS: QUETIAPINE FUMARATE 100 MG TAB PO SCH (20:31)
[2018-05-16] MEDS: INSULIN DETEMIR 100 UNIT/ML PEN SQ SCH (20:34)
[2018-05-17] VITALS: BP 115/68
[2018-05-17] MEDS: CLONIDINE HCL 0.1 MG TAB PO PRN (00:45)
[2018-05-17] MEDS: ALBUTEROL/IPRATROPIUM 3 ML NEB NEB SCH ×2 (01:10→07:16)
[2018-05-17 03:33] LABS: BASOPHILS % 0.3 % (0.0-1.0); EOSINOPHILS # (AUTO) 0.2 (0.0-0.4); EOSINOPHILS % 2.2 % (0.0-6.0); HEMATOCRIT 42.3 % (38.2-49.6); HEMOGLOBIN 12.9 g/dL (14.0-18.0); LYMPHOCYTES % 33.1 % (18.0-39.1); MEAN CORPUSCULAR HEMOGLOBIN 25.7 pg (28-32); MEAN CORPUSCULAR HGB CONC 30.5 g/dL (31-35); MEAN CORPUSCULAR VOLUME 84.3 fL (81-99); MONOCYTES # (AUTO) 0.7 (0.2-0.8); MONOCYTES % 7.6 % (4.4-11.3); NEUTROPHILS % 56.4 % (38.7-80.0); PLATELET COUNT 159 x10e3/uL (140-360); RED BLOOD COUNT 5.02 x10e6/uL (4.3-5.7); RED CELL DISTRIBUTION WIDTH 13.2 % (11.7-14.4)
[2018-05-17 03:52] LABS: ANION GAP 12.3 mmol/L (8-16); BLOOD UREA NITROGEN 13 mg/dL (7-26); BUN/CREATININE RATIO 12 (6-25); CARBON DIOXIDE 39 mmol/L (22-29); CHLORIDE 91 mmol/L (98-107); CREATININE, SERUM 1.13 mg/dL (0.72-1.25); EST GLOMERULAR FILTRATION RATE > 60 ML/MIN (60-); GLUCOSE 183 mg/dL (74-118); MAGNESIUM 1.9 MG/DL (1.3-2.1); POTASSIUM 3.3 mmol/L (3.5-5.1); SODIUM 139 mmol/L (136-145)
[2018-05-17 05:23] VITALS: BP 114/83
[2018-05-17] MEDS ORDERED: POTASSIUM CHLORIDE 20 MEQ TAB CR PO STA (05:38)
[2018-05-17 08:16] VITALS: BP 128/87
[2018-05-17 08:50] VITALS: BP 128/87
[2018-05-17] MEDS: POLYETHYLENE GLYCOL 3350 17 GM PACK PO SCH (09:00)
[2018-05-17] MEDS ORDERED: ISOSORBIDE MONONITRATE 30 MG TAB CR PO SCH (09:00)
[2018-05-17] MEDS: GLIMEPIRIDE 2 MG TAB PO SCH (09:08)
[2018-05-17] MEDS: FAMOTIDINE 20 MG TAB PO SCH (09:08)
[2018-05-17] MEDS: FUROSEMIDE INJ 10 MG/ML 4 ML VIAL IV SCH (09:08)
[2018-05-17] MEDS: APIXABAN 5 MG TABLET PO SCH (09:09)
[2018-05-17] MEDS: DOCUSATE SODIUM 100 MG CAP PO SCH (09:09)
[2018-05-17] MEDS: HYDRALAZINE HCL 25 MG TAB PO SCH (09:09)
[2018-05-17] MEDS: LISINOPRIL 2.5 MG TAB PO SCH (09:10)
[2018-05-17] MEDS: INSULIN REGULAR, HUMAN 100 UNIT/1 ML 3ML VIAL SQ SCH ×2 (10:22→12:48)
[2018-05-17] MEDS: INSULIN DETEMIR 100 UNIT/ML PEN SQ SCH (10:22)
[2018-05-17] MEDS ORDERED: LISINOPRIL2.5 MG PO (11:34)
[2018-05-17] MEDS ORDERED: Isosorbide Mononitrate PO (11:34)
[2018-05-17 12:30] VITALS: BP 118/58
--- NOTE | 2018-05-17 16:01 | Discharge Summary ---
ADMISSION DIAGNOSES 1. Acute exacerbation of congestive heart failure. 2. Chronic obstructive pulmonary disease. 3. Hypertension. 4. Insomnia. 5. Hyperlipidemia. 6. Type 2 diabetes. 7. Chest pain. 8. Depression. 9. History of pulmonary embolism and deep vein thrombosis. DISCHARGE DIAGNOSES 1. Acute exacerbation of congestive heart failure. 2. Chronic obstructive pulmonary disease. 3. Hypertension. 4. Insomnia. 5. Hyperlipidemia. 6. Type 2 diabetes. 7. Chest pain. 8. Depression. 9. History of pulmonary embolism and deep vein thrombosis. 10. Hypokalemia. HISTORY: Patient has a history of type 2 diabetes, PE, DVT, chronic systolic CHF, anemia, COPD, morbid obesity, insomnia, hyperlipidemia, hypertension, obstructive sleep apnea and depression. HOSPITAL COURSE: A 57-year-old male complains of chest pain described as sharp and constant that began yesterday while working with physical therapy. He was marching in place when the pain started. He says the pain did not radiate. He denies changes in LOC, fever and recent sickness. Patient has a surgical history of AICD placement, cholecystectomy and back surgery. On admission patient was started on Lasix b.i.d. Troponins were negative x3. EKG was found to be normal sinus rhythm. Cardiology was consulted. Patient continued on home medications, and Cardiology started patient on Imdur 30 daily as well as lisinopril 2.5 daily. After a couple of days of Lasix IV, patient is feeling much better and is ready to go home. He will discharge home and follow up with Cardiology in 2 weeks. He will resume home meds as well as the lisinopril and Imdur prescribed per Cardiology. Patient understands discharge instruction and followup and agrees to plan. Dictated by: Cielo Sung NP GENARO AMADO MD Job#: [id number]
== END 2018-05-17 13:20 | disposition home or self-care (01) | DRG 293 ==
LOC: ER 13:22 → ERHOLD 16:13 → MED/SURG3 16:17
PROVIDERS: ADMIT Internal Medicine; ATTEND Internal Medicine
DX: I11.0 Hypertensive heart disease with heart failure (principal); J44.9 Chronic obstructive pulmonary disease, unspecified; I50.23 Acute on chronic systolic (congestive) heart failure; E66.01 Morbid (severe) obesity due to excess calories; E11.9 Type 2 diabetes mellitus without complications; G47.00 Insomnia, unspecified; Z86.711 Personal history of pulmonary embolism; Z79.01 Long term (current) use of anticoagulants; E78.5 Hyperlipidemia, unspecified; E87.6 Hypokalemia; Z95.810 Presence of automatic (implantable) cardiac defibrillator; I25.110 Atherosclerotic heart disease of native coronary artery with unstable angina pectoris; Z68.37 Body mass index [BMI] 37.0-37.9, adult; F20.9 Schizophrenia, unspecified; R10.9 Unspecified abdominal pain; N40.0 Benign prostatic hyperplasia without lower urinary tract symptoms; Z79.899 Other long term (current) drug therapy; Z79.84 Long term (current) use of oral hypoglycemic drugs; G47.33 Obstructive sleep apnea (adult) (pediatric)
CPT/HCPCS: 36415; 71045; 76700; 80048; 80053; 82150; 82550; 82553; 82948; 83036; 83690; 83735; 83880; 84484; 85025; 93005; 94640; 99285; J1940; J2270; J2405; J7040

== ENCOUNTER 2018-09-15 21:03 | Emergency (ER) | payer OTHER ==
[~2018-09-15] VITALS: Ht 177.8 cm; Wt 119.7 kg
[~2018-09-15 21:03] MED LIST changes: +Isosorbide Mononitrate PO; +LISINOPRIL2.5 MG PO
--- OUTSIDE RECORDS SUMMARY | 2018-09-15 21:06 | XMS REPORT | Clinical Summary ---
Author Author [facility] Organization [facility] Address Unknown Phone Unavailable Care Team Providers Care Corporate Responsibility Officer Name Role Phone Cristino Bryant DO PCP Allergies No Known Allergies Medications End Date Status Medication Sig Dispensed Refills Start Date Active aspirin (ECOTRIN) 81 MG Take 81 mg by 0 enteric coated tablet mouth daily. Active atorvastatin (LIPITOR) 10 Take 10 mg by 0 MG tablet mouth nightly. Active escitalopram (LEXAPRO) 10 Take 10 mg by 0 MG tablet mouth 2 (two) times a day. Active QUEtiapine (SEROquel) 25 Take 25 mg by 0 MG tablet mouth nightly. Active risperiDONE (RisperDAL) 1 Take 1 mg by 0 MG tablet mouth 2 (two) times a day. Active varenicline (CHANTIX) 0.5 Take 0.5 mg 0 MG tablet by mouth daily. Take with full glass of water. Active HYDROcodone-acetaminophen Take 1 tablet 0 (NORCO) 10-325 mg per by mouth tablet every 6 (six) hours as needed for moderate pain. Active apixaban (ELIQUIS) 5 mg Take 5 mg by 0 tablet mouth 2 (two) times a day. 10/19/2018 Active furosemide (LASIX) 40 mg Take 1 tablet 60 tablet 11 tablet (40 mg total) 7 by mouth 2 (two) times a day. 10/19/2018 Active magnesium oxide (MAG-OX) Take 1 tablet 30 tablet 11 400 mg tablet (400 mg 7 total) by mouth daily. 10/15/2017 Discontinued carvedilol (COREG) 12.5 Take 1 tablet 60 tablet 0 MG tablet (12.5 mg 7 total) by mouth 2 (two) times a day with meals for 30 days. 10/15/2017 Discontinued sacubitril-valsartan Take 1 tablet 60 tablet 0 (ENTRESTO) 24-26 mg by mouth 2 7 tablet per tablet (two) times a day for 30 days. 10/15/2017 Discontinued hydrALAZINE (APRESOLINE) Take 3 270 tablet 0 25 MG tablet tablets (75 7 mg total) by mouth every 8 (eight) hours for 30 days. 10/15/2017 Discontinued furosemide (LASIX) 40 mg Take 1 tablet 60 tablet 0 tablet (40 mg total) 7 by mouth 2 (two) times a day for 30 days. 10/15/2017 Discontinued potassium chloride Take 3 180 capsule 0 (MICRO-K) 10 MEQ CR capsules (30 7 capsule mEq total) by mouth 2 (two) times a day for 30 days. 11/14/2017 carvedilol (COREG) 6.25 Take 1 tablet 60 tablet 3 MG tablet (6.25 mg 7 total) by mouth 2 (two) times a day with meals for 30 days. 11/15/2017 traMADol (ULTRAM) 50 mg Take 1 tablet 60 tablet 0 tablet (50 mg total) 7 by mouth every 6 (six) hours as needed for severe pain for up to 60 doses. 10/19/2017 Discontinued sacubitril-valsartan Take 1 tablet 60 tablet 0 (ENTRESTO) 24-26 mg by mouth 2 7 tablet per tablet (two) times a day for 30 days. 11/14/2017 hydrALAZINE (APRESOLINE) Take 3 270 tablet 0 25 MG tablet tablets (75 7 mg total) by mouth every 8 (eight) hours for 30 days. 11/15/2017 insulin GLARGINE (LANTUS) Inject 14 4.2 mL 0 100 unit/mL injection Units under 7 (vial) the skin daily before breakfast for 30 days. 11/14/2017 bisacodyl (DULCOLAX) 5 mg Take 2 30 tablet 0 EC tablet tablets (10 7 mg total) by mouth daily as needed for constipation for up to 30 days. 11/14/2017 polyethylene glycol Take 17 g by 30 packet 0 (MIRALAX) 17 gram packet mouth daily 7 for 30 days. 11/15/2017 senna (SENOKOT) 8.6 mg Take 1 tablet 30 tablet 0 tablet by mouth 7 daily for 30 days. 11/15/2017 pantoprazole (PROTONIX) Take 1 tablet 30 tablet 0 40 MG EC tablet (40 mg total) 7 by mouth daily for 30 days. 11/14/2017 lidocaine (LIDODERM) 5 % Place 1 patch 30 patch 0 on the skin 7 daily for 30 days. Remove & Discard patch within 12 hours or as directed by 10/19/2017 Discontinued sacubitril-valsartan Take 1 tablet 30 tablet 0 (ENTRESTO) 49-51 mg by mouth 2 7 tablet per tablet (two) times a day. 11/18/2017 sacubitril-valsartan Take 1 tablet 60 tablet 0 (ENTRESTO) 24-26 mg by mouth 2 7 tablet per tablet (two) times a day for 30 days. Active Problems Problem Noted Date Sleep-disordered [...] Resolved Problems Problem Noted Date Resolved Date SIRS (systemic inflammatory response syndrome) 03/21/2017 09/30/2017 Pneumonia 03/21/2017 09/30/2017 Chest pain 2016 09/30/2017 Encounters Care Team Description Date Type Specialty Nikole Woo NP Acute on chronic systolic congestive heart failure (Primary Dx) 10/19/2017 Office Visit Cardiology Holland Sanders MD Chronic systolic heart failure; Acute on chronic combined systolic and diastolic heart failure 10/19/2017 Hospital Transplant Encounter Ladarius Ramirez MD 10/19/2017 Documentation Pulmonology Umesh Godinez RN Appointment 10/16/2017 Telephone Cardiology Amarilis Ascencio 10/04/2017 Orders Only Procedural Cardiology Bia Arroyo CRNA 10/03/2017 Anesthesia Procedural Cardiology Event Abraham Barreto Jr., MD Ep aicd implant single dual bi vent [[id number] (CPT)] 10/03/2017 Surgery Procedural Cardiology Umesh Godinez RN Acute on chronic combined systolic and diastolic heart failure (Primary Dx) 10/03/2017 Orders Only Cardiology Siddhartha Summers RN Chronic systolic heart failure (Primary Dx) 09/30/2017 Orders Only Transplant Jacek Fuentes DO Verma, Smiley, PA Shehata, Mohamed M., MD Williams, Austin O. 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; Anemia of chronic disease 09/29/2017 Hospital Cardiology - Encounter 10/15/2017 after 09/14/2017 Immunizations Name Dates Previously Given Next Due FLUCELVAX QUAD PF (0.5mL 08/05/2017 syringe) Influenza Trivalent 12/27/2016 Pneumococcal Conjugate 12/27/2016 Family History Medical History Relation Name Comments Heart attack Brother Heart attack Mother Kidney disease Mother Stroke Mother Relation Name Status Comments Brother Mother Social History Date Tobacco Use Types Packs/Day Years Used Current Some Day Smoker Cigarettes 0.5 20 Smokeless Tobacco: Never Used Alcohol Use Drinks/Week oz/Week Comments No Previous alcoholic, quit 4 years ago Sex Assigned at Date Recorded Not on file Industry Job Start Date Occupation Not on file Not on file Not on file Travel End Travel History Travel Start No recent travel history available. Last Filed Vital Signs Time Taken Vital Sign Reading 10/19/2017 9:19 AM [employer] Blood Pressure 156/93 10/19/2017 9:19 AM [employer]INE [employer]CH[employer]IC Pulse 85 10/19/2017 9:19 AM [employer]INE [employer]CH[employer]IC Temperature 35.8 C (96.4 F) 10/15/2017 3:44 PM [employer] Respiratory Rate 16 10/15/2017 3:44 PM [employer] ENGINE [employer]CH[employer]IC Oxygen Saturation 93% - Inhaled Oxygen - Concentration 10/19/2017 9:19 AM [employer] ENGINE [employer]CH[employer]IC Weight 136 kg (299 lb 12.8 oz) 10/19/2017 9:19 AM [employer]INE [employer]CH[employer] Height 177.8 cm (5' 10") 10/19/2017 9:19 AM [employer]INE [employer]CH[employer]IC Body Mass Index 43.02 Plan of Treatment Health Maintenance Due Date Last Done Comments DIABETIC RETINAL EYE EXAM 1961 MMR VACCINES (1 of 1 - 1962 Standard series) DIABETIC FOOT EXAM 1971 VARICELLA VACCINES (1 of 1974 2 - 2-dose adolescent series) HEPATITIS B VACCINES (1 1980 of 3 - Risk 3-dose series) COLON CANCER SCREENING 2011 SHINGRIX VACCINE (1 of 2) 2011 INFLUENZA VACCINE 05/29/2018 08/05/2017, 12/27/2016 IPV VACCINES Aged Out No longer eligible based on patient's age to complete this topic MENINGOCOCCAL VACCINE Aged Out No longer eligible based on patient's age to complete this topic Implants Device Identifier Shelf Expiration Date Model / Serial / Lot Implanted Type Area Manufactur er 11/29/2021 [id number] / / [id number] [place] Df4 Tachy Lead - Cardiac N/A: N/A [place] [id number] Pacing SCIENTIFIC Implanted: Qty: 1 on 10/03/2017 by Leads or - Abraham Mathew Jr., MD Electrodes or Accessorie s [id number] / [id number] / [id number] Dynagen El Icd Df4 Vr Defibrilla [place] Implanted: Qty: 1 on 10/03/2017 by tor ICD SCIENTIFIC Estevan, Nadim Jr., MD Devices Pins In Lumbar L4-L5 Procedures Comments Procedure Name Priority Date/Time Associated Diagnosis ZZESTIMATED GFR STAT 10/19/2017 10:00 AM [employer]ARM [employer]IPMENT ENGINE MECH[employer]IC B NATRIURETIC PEPTIDE STAT 10/19/2017 Acute on chronic combined 10:00 AM [employer]INE [employer]CH[employer]IC systolic and diastolic heart failure MAGNESIUM LEVEL STAT 10/19/2017 Chronic systolic heart 10:00 AM [employer]IC failure BASIC METABOLIC PANEL STAT 10/19/2017 Chronic systolic heart 10:00 AM [employer]IC failure XR CHEST 1 VW PORTABLE Routine 10/15/2017 3:49 PM [employer]INE [employer]CH[employer]IC POC GLUCOSE Routine 10/15/2017 11:38 AM [employer] ENGINE MECH[employer]IC POC GLUCOSE Routine 10/15/2017 8:13 AM [employer]MENT ENGINE MECH[employer]IC POC GLUCOSE Routine 10/15/2017 5:26 AM [employer] ENGINE MECH[employer]IC POC GLUCOSE Routine 10/14/2017 10:01 PM [employer] ENGINE MECH[employer]IC POC GLUCOSE Routine 10/14/2017 5:18 PM [employer]MENT ENGINE MECH[employer]IC POC GLUCOSE Routine 10/14/2017 11:34 AM [employer]IPMENT ENGINE MECH[employer]IC POC GLUCOSE Routine 10/14/2017 7:41 AM [employer] ENGINE MECH[employer]IC POC GLUCOSE Routine 10/14/2017 5:51 AM [employer]MENT ENGINE MECH[employer]IC ZZESTIMATED GFR Routine 10/14/2017 5:00 AM [employer] ENGINE MECH[employer]IC BASIC METABOLIC PANEL Routine 10/14/2017 5:00 AM [employer] ENGINE MECH[employer]IC HC COMPLETE BLD COUNT Routine 10/14/2017 W/AUTO DIFF 5:00 AM [employer] ENGINE MECH[employer]IC POC GLUCOSE Routine 10/13/2017 9:13 PM [employer] ENGINE MECH[employer]IC POC GLUCOSE Routine 10/13/2017 5:29 PM [employer] ENGINE MECH[employer]IC POC GLUCOSE Routine 10/13/2017 11:23 AM [employer] ENGINE [employer]CH[employer]IC POC GLUCOSE Routine 10/13/2017 6:08 AM [employer]MENT ENGINE MECH[employer]IC ZZESTIMATED GFR Routine 10/13/2017 5:20 AM [employer] ENGINE [employer]CH[employer]IC BASIC METABOLIC PANEL Routine 10/13/2017 5:20 AM [employer] ENGINE MECH[employer]IC HC COMPLETE BLD COUNT Routine 10/13/2017 W/AUTO DIFF 5:20 AM [employer] ENGINE MECH[employer]IC POC GLUCOSE Routine 10/12/2017 9:10 PM [employer]MENT ENGINE MECH[employer]IC POC GLUCOSE Routine 10/12/2017 5:44 PM [employer]MENT ENGINE MECH[employer]IC POC GLUCOSE Routine 10/12/2017 12:31 PM [employer]IPMENT ENGINE MECH[employer]IC POC GLUCOSE Routine 10/12/2017 7:27 AM [employer]MENT ENGINE MECH[employer]IC ZZESTIMATED GFR Routine 10/12/2017 5:30 AM [employer] ENGINE MECH[employer]IC BASIC METABOLIC PANEL Routine 10/12/2017 5:30 AM [employer] ENGINE [employer]CH[employer]IC HC COMPLETE BLD COUNT Routine 10/12/2017 W/AUTO DIFF 5:30 AM [employer] ENGINE MECH[employer]IC POC GLUCOSE Routine 10/11/2017 9:13 PM [employer]IPMENT ENGINE MECH[employer]IC POC GLUCOSE Routine 10/11/2017 6:01 PM [employer]MENT ENGINE MECH[employer]IC POC GLUCOSE Routine 10/11/2017 11:16 AM [employer]MENT ENGINE MECH[employer]IC POC GLUCOSE Routine 10/11/2017 7:32 AM [employer]MENT ENGINE MECH[employer]IC ZZESTIMATED GFR Routine 10/11/2017 5:59 AM [employer]INE [employer]CH[employer]IC BASIC METABOLIC PANEL Routine 10/11/2017 5:59 AM [employer] ENGINE MECH[employer]IC HC COMPLETE BLD COUNT Routine 10/11/2017 W/AUTO DIFF 5:59 AM F[employer] CT CHEST WO CONTRAST STAT 10/10/2017 10:22 PM [employer]INE MECH[employer]IC POC GLUCOSE Routine 10/10/2017 8:39 PM [employer] ENGINE MECH[employer]IC POC GLUCOSE Routine 10/10/2017 5:23 PM [employer] ENGINE MECH[employer]IC POTASSIUM LEVEL STAT 10/10/2017 2:15 PM [employer] ENGINE MECH[employer]IC POC GLUCOSE Routine 10/10/2017 11:19 AM [employer]INE [employer]IC POC GLUCOSE Routine 10/10/2017 7:56 AM [employer]INE MECH[employer]IC ZZESTIMATED GFR Routine 10/10/2017 5:45 AM [employer]INE [employer] HC COMPLETE BLD COUNT Routine 10/10/2017 W/AUTO DIFF 5:45 AM [employer]INE [employer]CH[employer]IC BASIC METABOLIC PANEL Routine 10/10/2017 5:45 AM [employer]INE [employer]IC POC GLUCOSE Routine 10/09/2017 8:45 PM [employer]INE MECH[employer]IC POC GLUCOSE Routine 10/09/2017 5:21 PM [employer] ENGINE MECH[employer]IC POC GLUCOSE Routine 10/09/2017 11:50 AM [employer] ENGINE MECH[employer]IC POC GLUCOSE Routine 10/09/2017 6:51 AM [employer]INE MECH[employer]IC POC GLUCOSE Routine 10/09/2017 4:33 AM [employer] ENGINE MECH[employer]IC ZZESTIMATED GFR Routine 10/09/2017 4:30 AM [employer] ENGINE [employer]CH[employer]IC BASIC METABOLIC PANEL Routine 10/09/2017 4:30 AM [employer] ENGINE MECH[employer]IC HC COMPLETE BLD COUNT Routine 10/09/2017 W/AUTO DIFF 4:30 AM [employer] ENGINE MECH[employer]IC POC GLUCOSE Routine 10/08/2017 9:12 PM [employer]MENT ENGINE MECH[employer]IC POC GLUCOSE Routine 10/08/2017 5:34 PM [employer] ENGINE MECH[employer]IC POC GLUCOSE Routine 10/08/2017 11:36 AM [employer] ENGINE MECH[employer]IC NM LUNG VENTILATION Routine 10/08/2017 PERFUSION 9:48 AM [employer]INE [employer]IC POC GLUCOSE Routine 10/08/2017 7:19 AM [employer]INE [employer]CH[employer]IC HC COMPLETE BLD COUNT Routine 10/08/2017 W/AUTO DIFF 4:50 AM [employer]INE MECH[employer]IC ZZESTIMATED GFR Routine 10/08/2017 4:00 AM [employer]INE MECH[employer]IC MAGNESIUM LEVEL Routine 10/08/2017 4:00 AM [employer]INE MECH[employer]IC BASIC METABOLIC PANEL Routine 10/08/2017 4:00 AM [employer]MENT ENGINE MECH[employer]IC POC GLUCOSE Routine 10/07/2017 9:21 PM [employer]MENT ENGINE MECH[employer]IC POC GLUCOSE Routine 10/07/2017 3:59 PM [employer]MENT ENGINE MECH[employer]IC POC GLUCOSE Routine 10/07/2017 12:08 PM [employer]INE MECH[employer]IC POC GLUCOSE Routine 10/07/2017 8:37 AM [employer] ENGINE MECH[employer]IC SMEAR REVIEW Routine 10/07/2017 4:15 AM [employer]MENT ENGINE MECH[employer]IC B NATRIURETIC PEPTIDE Routine 10/07/2017 4:15 AM [employer] ENGINE MECH[employer]IC HC COMPLETE BLD COUNT Routine 10/07/2017 W/AUTO DIFF 4:15 AM [employer]MENT ENGINE MECH[employer]IC ZZESTIMATED GFR Routine 10/07/2017 4:00 AM [employer] ENGINE MECH[employer]IC MAGNESIUM LEVEL Routine 10/07/2017 4:00 AM [employer]INE MECH[employer]IC BASIC METABOLIC PANEL Routine 10/07/2017 4:00 AM [employer]IPMENT ENGINE MECH[employer]IC POC GLUCOSE Routine 10/06/2017 8:21 PM [employer]IP[employer] ENGINE MECH[employer]IC URINALYSIS SCREEN AND Routine 10/06/2017 MICROSCOPY, WITH REFLEX 5:40 PM [employer]ARM [employer]IPMENT ENGINE MECH[employer]IC TO CULTURE URINE CULTURE Routine 10/06/2017 5:40 PM [employer]MENT ENGINE MECH[employer]IC B NATRIURETIC PEPTIDE Routine 10/06/2017 5:35 PM [employer] ENGINE MECH[employer]IC POC GLUCOSE Routine 10/06/2017 5:09 PM [employer]IP[employer] ENGINE MECH[employer]IC BLOOD CULTURE, AEROBIC & Routine 10/06/2017 ANAEROBIC 2:00 PM [employer]INE [employer]CH[employer]IC POC GLUCOSE Routine 10/06/2017 1:25 PM [employer]IP[employer]INE MECH[employer]IC BLOOD CULTURE, AEROBIC & Routine 10/06/2017 ANAEROBIC 1:15 PM [employer]INE MECH[employer]IC ECG 12-LEAD STAT 10/06/2017 12:25 PM [employer]INE [employer]CH[employer]IC MAGNESIUM LEVEL Routine 10/06/2017 7:53 AM [employer]MENT ENGINE MECH[employer]IC ZZESTIMATED GFR Routine 10/06/2017 7:53 AM [employer]MENT ENGINE MECH[employer]IC HC COMPLETE BLD COUNT Routine 10/06/2017 W/AUTO DIFF 7:53 AM [employer] ENGINE MECH[employer]IC BASIC METABOLIC PANEL Routine 10/06/2017 7:53 AM [employer]IPMENT ENGINE MECH[employer]IC POC GLUCOSE Routine 10/06/2017 7:24 AM [employer]IPMENT ENGINE MECH[employer]IC POC GLUCOSE Routine 10/06/2017 1:57 AM [employer]IPMENT ENGINE MECH[employer]IC POC GLUCOSE Routine 10/05/2017 8:41 PM [employer]IPMENT ENGINE MECH[employer]IC POC GLUCOSE Routine 10/05/2017 5:25 PM [employer] ENGINE MECH[employer]IC POC GLUCOSE Routine 10/05/2017 11:58 AM [employer]MENT ENGINE MECH[employer]IC POC GLUCOSE Routine 10/05/2017 8:13 AM [employer] ENGINE MECH[employer]IC ZZESTIMATED GFR Routine 10/05/2017 4:00 AM [employer]INE [employer]CH[employer]IC BASIC METABOLIC PANEL Routine 10/05/2017 4:00 AM [employer]INE [employer]IC POC GLUCOSE Routine 10/04/2017 8:28 PM [employer]INE [employer]IC POC GLUCOSE Routine 10/04/2017 4:51 PM [employer]INE [employer]IC CV ECHO 2D FOLLOW UP OR STAT 10/04/2017 LIMITED STUDY 4:25 PM [employer]INE [employer]CH[employer]IC XR CHEST 1 VW PORTABLE STAT 10/04/2017 3:58 PM [employer]IPMENT ENGINE MECH[employer]IC ZZESTIMATED GFR Routine 10/04/2017 2:22 PM [employer]INE [employer]IC PARTIAL THROMBOPLASTIN Routine 10/04/2017 TIME (PTT) 2:22 PM [employer]INE MECH[employer]IC PROTHROMBIN TIME WITH INR Routine 10/04/2017 2:22 PM [employer]INE ME[employer]IC PHOSPHORUS LEVEL Routine 10/04/2017 2:22 PM [employer]INE [employer]IC TROPONIN Routine 10/04/2017 2:22 PM [employer]INE MECH[employer]IC MAGNESIUM LEVEL Routine 10/04/2017 2:22 PM [employer]INE MECH[employer]IC BASIC METABOLIC PANEL Routine 10/04/2017 2:22 PM [employer]INE [employer]CH[employer]IC ECG 12-LEAD Routine 10/04/2017 2:08 PM [employer]INE [employer]CH[employer]IC ECG PRE/POST OP Routine 10/04/2017 11:53 AM [employer]INE [employer]CH[employer]IC POC GLUCOSE Routine 10/04/2017 11:47 AM [employer]INE ME[employer]IC POC GLUCOSE Routine 10/04/2017 8:08 AM [employer]MENT ENGINE MECH[employer]IC ZZESTIMATED GFR Routine 10/04/2017 4:00 AM [employer]INE MECH[employer]IC BASIC METABOLIC PANEL Routine 10/04/2017 4:00 AM [employer]INE [employer]CH[employer]IC POC GLUCOSE Routine 10/03/2017 8:21 PM [employer]INE MECH[employer]IC POC GLUCOSE Routine 10/03/2017 3:55 PM [employer]INE [employer]IC XR CHEST 1 VW PORTABLE Routine 10/03/2017 2:31 PM [employer]QUIP[employer] ENGINE MECH[employer]IC POC GLUCOSE Routine 10/03/2017 1:41 PM [employer]INE [employer]IC EP AICD IMPLANT SINGLE Routine 10/03/2017 DUAL BI VENT 11:27 AM [employer]INE MECH[employer]IC POC GLUCOSE Routine 10/03/2017 7:52 AM [employer]INE [employer]IC PROTHROMBIN TIME WITH INR Routine 10/03/2017 4:15 AM [employer]INE [employer]CH[employer]IC PARTIAL THROMBOPLASTIN Routine 10/03/2017 TIME (PTT) 4:15 AM [employer]INE ME[employer]IC ZZESTIMATED GFR Routine 10/03/2017 4:15 AM [employer]INE [employer]CH[employer]IC BASIC METABOLIC PANEL Routine 10/03/2017 4:15 AM [employer]INE [employer] HC COMPLETE BLD COUNT Routine 10/03/2017 W/AUTO DIFF 4:15 AM [employer]INE MECH[employer]IC POC GLUCOSE Routine 10/02/2017 8:32 PM [employer]INE MECH[employer]IC US DUPLEX VENOUS UPPER Routine 10/02/2017 EXTREMITY BILATERAL 5:46 PM [employer]INE MECH[employer]IC ECHOCARDIOGRAM 2D Routine 10/02/2017 COMPLETE W MMODE SPECTRAL 4:21 PM [employer]INE MECH[employer]IC COLOR DOPPLER ([id number]) POC GLUCOSE Routine 10/02/2017 4:03 PM [employer]MENT ENGINE MECH[employer]IC POC GLUCOSE Routine 10/02/2017 11:30 AM [employer]MENT ENGINE MECH[employer]IC ZZESTIMATED GFR Routine 10/02/2017 8:41 AM [employer]INE MECHANIC BASIC METABOLIC PANEL Routine 10/02/2017 8:41 AM [employer] ENGINE MECH[employer]IC POC GLUCOSE Routine 10/02/2017 7:46 AM [employer] ENGINE MECH[employer]IC ARTERIAL BLOOD GAS Routine 10/02/2017 7:36 AM [employer] ENGINE MECH[employer]IC HC COMPLETE BLD COUNT Routine 10/02/2017 W/AUTO DIFF 5:45 AM [employer]MENT ENGINE MECH[employer]IC ZZESTIMATED GFR Routine 10/02/2017 4:00 AM [employer] ENGINE MECH[employer]IC MAGNESIUM LEVEL Routine 10/02/2017 4:00 AM [employer]MENT ENGINE MECHANIC BASIC METABOLIC PANEL Routine 10/02/2017 4:00 AM [employer]MENT ENGINE MECHANIC POC GLUCOSE Routine 10/01/2017 8:54 PM [employer]IPMENT ENGINE MECHANIC POC GLUCOSE Routine 10/01/2017 3:52 PM [employer]MENT ENGINE MECHANIC POC GLUCOSE Routine 10/01/2017 1:05 PM [employer]IPMENT ENGINE MECHANIC POC GLUCOSE Routine 10/01/2017 8:45 AM [employer]MENT ENGINE MECHANIC PHOSPHORUS LEVEL Routine 10/01/2017 3:52 AM [employer] EQUIPMENT ENGINE MECHANIC ZZESTIMATED GFR Routine 10/01/2017 3:52 AM [employer]MENT ENGINE MECH[employer]IC MAGNESIUM LEVEL Routine 10/01/2017 3:52 AM [employer]MENT ENGINE MECHANIC BASIC METABOLIC PANEL Routine 10/01/2017 3:52 AM [employer]MENT ENGINE MECH[employer]IC ARTERIAL BLOOD GAS Routine 10/01/2017 3:33 AM [employer]MENT ENGINE MECH[employer]IC HC COMPLETE BLD COUNT Routine 10/01/2017 W/AUTO DIFF 3:30 AM [employer]IP[employer] ENGINE MECH[employer]IC B NATRIURETIC PEPTIDE Routine 10/01/2017 3:30 AM [employer] ENGINE MECHANIC ARTERIAL BLOOD GAS STAT 10/01/2017 12:15 AM [employer]IP[employer] ENGINE MECH[employer]IC POC GLUCOSE Routine 09/30/2017 9:00 PM [employer] ENGINE MECH[employer]IC ARTERIAL BLOOD GAS Timed 09/30/2017 8:16 PM [employer] ENGINE MECH[employer]IC POC GLUCOSE Routine 09/30/2017 5:27 PM [employer] ENGINE MECH[employer]IC ARTERIAL BLOOD GAS Timed 09/30/2017 5:00 PM [employer]INE [employer]CH[employer]IC URINALYSIS, AUTOMATED Routine 09/30/2017 WITH MICROSCOPY 4:00 PM [employer]INE MECH[employer]IC URINE DRUGS OF ABUSE Routine 09/30/2017 SCREEN 4:00 PM [employer] MECH[employer]IC RESPIRATORY PATHOGEN Routine 09/30/2017 PANEL 3:22 PM [employer]INE [employer]CH[employer]IC XR CHEST 1 VW PORTABLE STAT 09/30/2017 2:29 PM [employer]INE [employer]CH[employer]IC HEMOGLOBIN A1C STAT 09/30/2017 1:17 PM [employer] ENGINE MECH[employer]IC ARTERIAL BLOOD GAS STAT 09/30/2017 12:55 PM [employer] ENGINE MECH[employer]IC TROPONIN STAT 09/30/2017 12:36 PM [employer]MENT ENGINE MECH[employer]IC POC GLUCOSE Routine 09/30/2017 11:21 AM [employer]MENT ENGINE MECHANIC POC GLUCOSE Routine 09/30/2017 7:30 AM [employer]MENT ENGINE MECHANIC ZZESTIMATED GFR Routine 09/30/2017 4:30 AM [employer] ENGINE MECHANIC MAGNESIUM LEVEL Routine 09/30/2017 4:30 AM [employer]MENT ENGINE MECHANIC B NATRIURETIC PEPTIDE Routine 09/30/2017 4:30 AM [employer] ENGINE MECHANIC BASIC METABOLIC PANEL Routine 09/30/2017 4:30 AM [employer]MENT ENGINE MECH[employer]IC POC GLUCOSE Routine 09/30/2017 3:14 AM [employer]INE MECH[employer]IC TROPONIN Timed 09/30/2017 1:45 AM [employer] ENGINE MECH[employer]IC XR CHEST 1 VW PORTABLE STAT 09/30/2017 12:54 AM [employer]IPMENT ENGINE MECH[employer]IC ME CRITICAL CARE, E/M Routine 09/30/2017 30-74 MINUTES 12:25 AM [employer] ENGINE MECH[employer]IC ZZESTIMATED GFR STAT 09/29/2017 9:56 PM [employer] ENGINE MECH[employer]IC B NATRIURETIC PEPTIDE STAT 09/29/2017 9:56 PM [employer] ENGINE MECH[employer]IC TROPONIN STAT 09/29/2017 9:56 PM [employer]INE [employer]CH[employer]IC CREATINE KINASE, TOTAL STAT 09/29/2017 (CPK) 9:56 PM [employer]INE MECH[employer]IC COMPREHENSIVE METABOLIC STAT 09/29/2017 PANEL 9:56 PM [employer] ENGINE MECH[employer]IC PROTHROMBIN TIME WITH INR STAT 09/29/2017 9:56 PM [employer] ENGINE MECH[employer]IC HC COMPLETE BLD COUNT STAT 09/29/2017 W/AUTO DIFF 9:56 PM [employer] ENGINE MECH[employer]IC ECG 12-LEAD STAT 09/29/2017 7:29 PM [employer] ENGINE MECH[employer]IC after 09/14/2017 Results * Estimated GFR (10/19/2017 10:00 AM FARM [employer] ENGINE MECHANIC) Only the most recent of 19 results within the time period is included. GFR Non Af Amer mL/min/1.73 m2 [facility] DEPARTMENT OF PATHOLOGY AND GENOMIC MEDICINE GFR Af Amer Comment: mL/min/1.73 m2 [facility] DEPARTMENT OF Chronic kidney disease: <60 PATHOLOGY AND mL/min/1.73m2 GENOMIC MEDICINE Kidney failure: <15 mL/min/1.73m2 The estimated GFR [...] Americans. Specimen Plasma specimen Performing Organization Address City/[facility]/[place] [address] PATHOLOGY AND [employer] * B natriuretic peptide (10/19/2017 10:00 AM [employer] ENGINE MECH[employer]IC) Only the most recent of 6 results within the time period is included. BNP (H) 0 - 100 pg/mL [facility] PATHOLOGY AND [facility] MEDICINE Specimen Blood Performing Organization Address [facility] [place] [address] PATHOLOGY [facility] * Magnesium level (10/19/2017 10:00 AM [employer]CH[employer]IC) Only the most recent of 8 results within the time period is included. Magnesium 1.6 - 2.6 mg/dL [facility] OF PATHOLOGY AND [facility] Specimen Plasma specimen Performing Organization Address [facility] [place] [address] PATHOLOGY AND [facility] * Basic metabolic panel (10/19/2017 10:00 AM [employer]CH[employer]) Only the most recent of 18 results within the time period is included. Sodium 135 - 148 mEq/L [facility] DEPARTMENT OF PATHOLOGY AND GENOMIC MEDICINE Potassium 3.5 - 5.0 mEq/L [facility] DEPARTMENT OF PATHOLOGY AND GENOMIC MEDICINE Chloride 98 - 112 mEq/L [facility] DEPARTMENT OF PATHOLOGY AND GENOMIC MEDICINE CO2 (H) 24 - 31 mEq/L [facility] DEPARTMENT OF PATHOLOGY AND GENOMIC MEDICINE Anion gap Comment: 7 - 15 mEq/L [facility] DEPARTMENT OF Starting from January PATHOLOGY AND , anion gap calculation GENOMIC MEDICINE no longer incorporates potassium. Please note the change. BUN 6 - 20 mg/dL [facility] DEPARTMENT OF PATHOLOGY AND GENOMIC MEDICINE Creatinine 0.7 - 1.2 mg/dL [facility] DEPARTMENT OF PATHOLOGY AND GENOMIC MEDICINE Glucose (H) 65 - 99 mg/dL [facility] DEPARTMENT OF PATHOLOGY AND GENOMIC MEDICINE Calcium 8.3 - 10.2 mg/dL [facility] DEPARTMENT OF PATHOLOGY AND GENOMIC MEDICINE Specimen Plasma specimen Performing Organization Address City/[facility] Phone Number [facility] DEPARTMENT OF [address] [place] [address] PATHOLOGY AND GENOMIC MEDICINE * XR Chest 1 Vw Portable (10/15/2017 3:49 PM FARM EQUIPMENT ENGINE MECHANIC) Only the most recent of 5 results within the time period is included. Narrative Performed At Examination:XR CHEST 1 VW PORTABLE RADIANT Clinical history:"Pleural Effusions" Comparison:10/04/2017 IMPRESSION: There are no new alveolar opacities within either lung.Bibasilar opacities consistent with atelectasis versus small infiltrates appear unchanged. No pneumothoraces are identified. The cardiomediastinal silhouette is unchanged. The bones of the chest are unchanged. Cardiac pacer is again seen. [id number] Procedure Note Hm Interface, Radiology Results Incoming - 10/15/2017 3:59 PM FARM EQUIPMENT ENGINE MECHANIC Examination: XR CHEST 1 VW PORTABLE Clinical history: "Pleural Effusions" Comparison: 10/04/2017 IMPRESSION: There are no new alveolar opacities within either lung. Bibasilar opacities consistent with atelectasis versus small infiltrates appear unchanged. No pneumothoraces are identified. The cardiomediastinal silhouette is unchanged. The bones of the chest are unchanged. Cardiac pacer is again seen. [id number] Performing Organization Address City/[facility]/Zipcode Phone Number [facility] [address] [place] [address] * POC glucose (10/15/2017 11:38 AM FARM EQUIPMENT ENGINE MECHANIC) Only the most recent of 67 results within the time period is included. POC glucose (H) 65 - 99 mg/dL [facility] DEPARTMENT OF Comment: PATHOLOGY AND H Notified RN GENOMIC MEDICINE Meter ID: [id number] Facing Baster: Gorge Hoffmann Performing Organization Address City/State/Zipcode Phone Number [facility] [address] [place] [address] PATHOLOGY AND GENOMIC MEDICINE * CBC with platelet and differential (10/14/2017 5:00 AM FARM EQUIPMENT ENGINE MECHANIC) Only the most recent of 13 results within the time period is included. WBC 4.50 - 11.00 k/uL [facility] DEPARTMENT OF PATHOLOGY AND GENOMIC MEDICINE RBC (L) 4.40 - 6.00 m/uL [facility] DEPARTMENT OF PATHOLOGY AND GENOMIC MEDICINE HGB (L) 14.0 - 18.0 g/dL [facility] DEPARTMENT OF PATHOLOGY AND GENOMIC MEDICINE HCT (L) 41.0 - 51.0 % [facility] DEPARTMENT OF PATHOLOGY AND GENOMIC MEDICINE MCV 82.0 - 100.0 fL [facility] DEPARTMENT OF PATHOLOGY AND GENOMIC MEDICINE MCH (L) 27.0 - 34.0 pg [facility] DEPARTMENT OF PATHOLOGY AND GENOMIC MEDICINE MCHC (L) 31.0 - 37.0 g/dL [facility] DEPARTMENT OF PATHOLOGY AND GENOMIC MEDICINE RDW - SD 37.0 - 55.0 fL [facility] DEPARTMENT OF PATHOLOGY AND GENOMIC MEDICINE MPV 8.8 - 13.2 fL [facility] DEPARTMENT OF PATHOLOGY AND GENOMIC MEDICINE Platelet count 150 - 400 k/uL [facility] DEPARTMENT OF PATHOLOGY AND GENOMIC MEDICINE Nucleated RBC /100 WBC [facility] DEPARTMENT OF PATHOLOGY AND GENOMIC MEDICINE Neutrophils 39.0 - 69.0 % [facility] DEPARTMENT OF PATHOLOGY AND GENOMIC MEDICINE Lymphocytes (L) 25.0 - 45.0 % [facility] DEPARTMENT OF PATHOLOGY AND GENOMIC MEDICINE Monocytes (H) 0.0 - 10.0 % [facility] DEPARTMENT OF PATHOLOGY AND GENOMIC MEDICINE Eosinophils 0.0 - 5.0 % [facility] DEPARTMENT OF PATHOLOGY AND GENOMIC MEDICINE Basophils 0.0 - 1.0 % [facility] DEPARTMENT OF PATHOLOGY AND GENOMIC MEDICINE Immature granulocytes (H)Comment: "Immature 0.0 - 1.0 % [facility] DEPARTMENT OF granulocytes" (promyelocytes, PATHOLOGY AND myelocytes, metamyelocytes) [facility] Specimen Blood Performing Organization Address City/State/Zipcode Phone Number [address] [address] PATHOLOGY AND [employer] MEDICINE * CT Chest Wo Contrast (10/10/2017 10:22 PM FARM EQUIPMENT ENGINE MECHANIC) Narrative Performed At Examination:CT CHEST WO CONTRAST HM RADIANT Clinical History: left side large hematoma at site of recent PPM Comparison: None. Findings: CT scans are performed using radiation dose reduction techniques.Technical factors are evaluated and adjusted to ensure appropriate moderation of exposure.Automated dose management technology is applied to adjust [...] the left lingular and bilateral lower lobes. [id number] Procedure Note [facility], Radiology Results Incoming - 10/10/2017 10:53 PM FARM EQUIPMENT ENGINE MECHANIC Examination: CT CHEST WO CONTRAST Clinical History: [...] the left lingular and bilateral lower lobes. [id number] Performing Organization Address City/State/Zipcode Phone Number [facility] [address] [place] [address] * Potassium level (10/10/2017 2:15 PM FARM EQUIPMENT ENGINE MECHANIC) Potassium 3.5 - 5.0 mEq/L [facility] DEPARTMENT OF PATHOLOGY AND GENOMIC MEDICINE Specimen Plasma specimen Performing Organization Address City/[facility]/Zipcode Phone Number [facility] DEPARTMENT OF [address] [place] [address] PATHOLOGY AND GENOMIC MEDICINE * NM Lung Ventilation Perfusion (10/08/2017 9:48 AM FARM EQUIPMENT ENGINE MECHANIC) Narrative Performed At PROCEDURE:AR LUNG VENTILATION PERFUSION [facility] INDICATION:Evaluate for chronic PE. COMPARISON:Portable chest x-ray [...] bases, matching the ventilation images.No suspicious mismatched defects.Comparison x-ray did not show a confluent infiltrate. IMPRESSION: 1.Low probability for acute PE. 2.Matched defects in both lungs are probably related to underlying obstructive airspace disease.Chronic PE cannot be excluded based on this study, however. [id number] Procedure Note Interface, Radiology Results Incoming - 10/08/2017 9:59 AM FARM EQUIPMENT ENGINE MECHANIC PROCEDURE: NM LUNG VENTILATION PERFUSION INDICATION: Evaluate [...] be excluded based on this study, however. [id number] Performing Organization Address City/[facility]/[place] [address] * Smear review (10/07/2017 4:15 AM FARM EQUIPMENT ENGINE MECHANIC) Platelet slide review [facility] DEPARTMENT OF PATHOLOGY AND GENOMIC MEDICINE Enlarged platelets (A) [facility] DEPARTMENT OF PATHOLOGY AND GENOMIC MEDICINE Performing Organization Address [facility] [place] [address] PATHOLOGY AND [facility] MEDICINE * Urinalysis screen and microscopy, with reflex to culture (10/06/2017 5:40 PM FARM EQUIPMENT ENGINE MECHANIC) Specimen site [facility] DEPARTMENT OF PATHOLOGY AND GENOMIC MEDICINE Color, UA [facility] DEPARTMENT OF PATHOLOGY AND GENOMIC MEDICINE Appearance, UA [facility] DEPARTMENT OF PATHOLOGY AND GENOMIC MEDICINE Specific gravity, UA 1.001 - 1.035 [facility] DEPARTMENT OF PATHOLOGY AND GENOMIC MEDICINE pH, UA 5.0 - 8.5 [facility] DEPARTMENT OF PATHOLOGY AND GENOMIC MEDICINE Protein, UA Negative [facility] DEPARTMENT OF PATHOLOGY AND GENOMIC MEDICINE Glucose, UA Negative [facility] DEPARTMENT OF PATHOLOGY AND GENOMIC MEDICINE Ketones, UA Negative [facility] DEPARTMENT OF PATHOLOGY AND GENOMIC MEDICINE Bilirubin, UA Negative [facility] DEPARTMENT OF PATHOLOGY AND GENOMIC MEDICINE Blood, UA Negative [facility] DEPARTMENT OF PATHOLOGY AND GENOMIC MEDICINE Nitrite, UA Negative [facility] DEPARTMENT OF PATHOLOGY AND GENOMIC MEDICINE Urobilinogen, UA <2.0 [facility] DEPARTMENT OF PATHOLOGY AND GENOMIC MEDICINE Leukocyte esterase, UA Negative [facility] DEPARTMENT OF PATHOLOGY AND GENOMIC MEDICINE Epithelial cells, UA /HPF [facility] DEPARTMENT OF PATHOLOGY AND GENOMIC MEDICINE WBC, UA 0 - 1 /HPF [facility] DEPARTMENT OF PATHOLOGY AND GENOMIC MEDICINE RBC, UA (H) 0 - 1 /HPF [facility] DEPARTMENT OF PATHOLOGY AND GENOMIC MEDICINE Bacteria, UA None seen [facility] DEPARTMENT OF PATHOLOGY AND GENOMIC MEDICINE Yeast, UA [facility] DEPARTMENT OF PATHOLOGY AND GENOMIC MEDICINE Yeast with pseudohyphae, [facility] DEPARTMENT [facility] PATHOLOGY AND GENOMIC MEDICINE Hyaline casts, UA /LPF [facility] DEPARTMENT OF PATHOLOGY AND GENOMIC MEDICINE Specimen Urine Performing Organization Address City/[facility] Centercode Phone Number [place] [phone] PATHOLOGY AND GENOMIC MEDICINE * Urine culture (10/06/2017 5:40 PM FARM EQUIPMENT ENGINE MECHANIC) Urine culture Comment: Bacteriuria screen [facility] DEPARTMENT OF negative. PATHOLOGY AND GENOMIC MEDICINE Performing Organization Address City/[facility] Centercode Phone Number [facility] DEPARTMENT OF [address] [place] [address] PATHOLOGY AND GENOMIC MEDICINE * Blood culture, aerobic & anaerobic (10/06/2017 2:00 PM FARM EQUIPMENT ENGINE MECHANIC) Only the most recent of 2 results within the time period is included. Blood culture isolate Comment: [facility] DEPARTMENT OF Specimen Information PATHOLOGY AND Specimen Source: Blood GENOMIC MEDICINE Specimen Site: Forearm, left Specimen Blood - Forearm, left Performing Organization Address City/[facility]/Zipcode Phone Number [facility] DEPARTMENT OF [address] [place] [address] PATHOLOGY AND GENOMIC MEDICINE * ECG 12 lead (10/06/2017 12:25 PM FARM EQUIPMENT ENGINE MECHANIC) Only the most recent of 3 results within the time period is included. Ventricular rate [facility] Atrial rate [facility] ME interval [facility] QRSD interval [facility] QT interval [facility] QTC interval [facility] P axis 1 [facility] QRS axis 1 [facility] T wave axis [facility] EKG impression [facility] Performing Organization Address [facility] Centercode Phone Number [facility] [address] [place] [address] * Echocardiogram 2d limited (10/04/2017 4:25 PM FARM EQUIPMENT ENGINE MECHANIC) Narrative Performed At [facility] Echocardiography Report [address] [place] [address] Pat.Name:Beatris ISAAC.ID:[id number] .Date: 10/04/2017 Refer.MD:NORIS PRIDE MD Exam Time: 4:59:00 PMStudy Type:Routine Echo Height:70inWeight:272lb BSA: 2.38 m2 DOBAge:1960,56Y Sex: MALEBP:125/66 HR:77 bpmSonogrphr: Kaycee Ascencio RDCS Pat. Stat.:Inpatient Room:A938 Study Status:Final Echo Event ID:[id number] Order ID:[id number] Reason for Study:Myocardial Ischemia / Infarction - acute ches pain with suspected UT and nondiagnostic ECG with a resting ECHO [...] not well seen. MEASUREMENTS: 2D Parasternal [place] Ao An2.2 cmLVPWd1.5 cm LVOT 2.4 cmLA Ds3.9 cm LVIDd6 cmIndex2.5 cm/m Ao Rtd 3.5 cm Index1.5 cm/m LVIDs4.7 cm LV Jyxd792.8 g(122-174) LV%fs 22 % LVM Fvdoh625.8 g/m2 IVSd 1.6 cmRWT0.5 Signed 10/04/2017 05:34 PM Shania Mustafa M.D. Procedure Note Interface, Radiology Results In - 10/04/2017 5:34 PM FARM EQUIPMENT ENGINE MECHANIC Echocardiography Report [address] [place] [address] Pat.Name: SAM ISAAC.ID: [id number] .Date: 10/04/2017 Refer.MD: NORIS PRIDE MD Exam Time: 4:59:00 PM Study Type:Routine Echo Height: 70in Weight: 272lb BSA: 2.38 m2 Age: 2 1960,56Y Sex: MALE BP: 125/66 HR: 77 bpm Sonogrphr: Kaycee Ascencio [facility] Pat. Stat.:Inpatient Room: [facility] Study Status:Final Echo Event ID:[id number] Order ID: [id number] Reason for Study:Myocardial Ischemia / Infarction - acute ches pain with suspected UT and nondiagnostic ECG with a resting ECHO [...] not well seen. MEASUREMENTS: 2D Parasternal [place] Ao An 2.2 cm LVPWd 1.5 cm LVOT 2.4 cm LA Ds 3.9 cm LVIDd 6 cm Index 2.5 cm/m Ao Rtd 3.5 cm Index 1.5 cm/m LVIDs 4.7 cm LV Mass 470.8 g (122-174) LV%fs 22 % LVM Index 197.8 g/m2 IVSd 1.6 cm RWT 0.5 Signed 10/04/2017 05:34 PM Shania Mustafa M.D. Performing Organization Address [facility]/[employer] Phone Number [facility] [address] [place] [address] * Troponin (10/04/2017 2:22 PM FARM EQUIPMENT ENGINE MECHANIC) Only the most recent of 4 results within the time period is included. Troponin Comment: 0.00 - 0.30 ng/mL [facility] DEPARTMENT OF 0.30 - 1.49 PATHOLOGY AND ng/mlMay [employer] indicate increased risk of acute coronary syndrome. >=1.5 ng/ml Consistent with acute myocardial infarction. The diagnostic value of a single normal or non-diagnostic result is questionable.Serial samples at 2-6 hour intervals are required to rule out acute myocardial injury. Specimen Plasma specimen Performing Organization Address [facility]/[employer] Phone Number [facility] DEPARTMENT OF [address] [place] [address] PATHOLOGY AND [employer] MEDICINE * Partial thromboplastin time, activated (10/04/2017 2:22 PM FARM EQUIPMENT ENGINE MECHANIC) Only the most recent of 2 results within the time period is included. PTT Comment: 23.0 - 36.0 sec [facility] DEPARTMENT OF PTT therapeutic range for PATHOLOGY AND unfractionated heparin is [employer] 61.0-112.0 seconds which corresponds to Anti-Xa 0.3-0.7 U/ml. Specimen Blood Performing Organization Address [facility]/Zipcode Phone Number [facility] DEPARTMENT OF [address] [place] [address] PATHOLOGY AND GENOMIC MEDICINE * Prothrombin time with INR (10/04/2017 2:22 PM FARM EQUIPMENT ENGINE MECHANIC) Only the most recent of 3 results within the time period is included. Prothrombin time 12.0 - 15.0 sec [facility] DEPARTMENT OF PATHOLOGY AND GENOMIC MEDICINE INR Comment: [facility] DEPARTMENT OF The International Normalized PATHOLOGY AND Ratio (INR) is a therapeutic GENOMIC MEDICINE monitoring tool for patients who are stable on oral anticoagulant therapy. An INR of 2.0-3.0 is suggested for deep vein thrombosis/pulmonary embolism. Specimen Blood Performing Organization Address [facility] [place] [address] PATHOLOGY AND [facility] MEDICINE * Phosphorus level (10/04/2017 2:22 PM FARM EQUIPMENT ENGINE MECHANIC) Only the most recent of 2 results within the time period is included. Phosphorus (L) 2.4 - 4.5 mg/dL [facility] DEPARTMENT OF PATHOLOGY AND GENOMIC MEDICINE Specimen Plasma specimen Performing Organization Address [facility] Phone Number [address] [address] PATHOLOGY AND [employer] MEDICINE * ECG Pre/Post Op-Tomorrow (10/04/2017 11:53 AM FARM EQUIPMENT ENGINE MECHANIC) Ventricular rate [facility] Atrial rate [facility] ME interval HM MUSE QRSD interval [facility]USE QT interval [facility] QTC interval [facility] P axis 1 [facility] MUSE QRS axis 1 [facility] MUSE T wave axis [facility] EKG impression [facility] Performing Organization Address [facility] Phone Number [facility] [address] [place] [address] * Cv electrophysiology procedure (10/03/2017 11:27 AM FARM EQUIPMENT ENGINE MECHANIC) Narrative Performed At [facility] TITLE OF PROCEDURE: [...] a scalpel, cautery, and blunt dissection.Using the vlil-sfu-vbhd technique and an introducer sheath, a defibrillation [...] right ventricular apical defibrillation lead is a [employer] [place]-G, model 0296, serial #[id number].Measured R-wave 10.1 mV, pacing threshold 0.8 V, current 0.8 mA, impedance 982 ohms. 2.The defibrillator is a [employer] Dynagen EL ICD model D150, serial #[id number]. 3.Ventricular fibrillation was induced and the patient [...] Pride. Performing Organization Address City/State/Zipcode Phone Number [facility] [address] [place] [address] * Pv duplex venous upper extremity (10/02/2017 5:46 PM FARM EQUIPMENT ENGINE MECHANIC) Narrative Performed At [facility] Vascular Ultrasound Laboratory Lower Extremity Venous Report [address] [place] [address] Pat.Name:Beatris ISAAC.ID:[id number] .Date: 10/02/2017 Refer.MD:NORIS NEUMANN MD Exam Time: 5:20:00 PMStudy Type:LE Venous DOBAge:1960,56YSex: MALE Sonogrphr: [place], SAVANNA Pat. Stat.:Inpatient Room:[address] TapeVol: FORTUNATO, CPT - 4: [address]80 Echo Event ID:[id number] Order ID:[id number] Reason for Study:Evaluate for DVT. History of [...] Radiology Results In - 10/02/2017 6:34 PM [facility] Vascular Ultrasound Laboratory Lower Extremity Venous Report [address] [place] [address] Pat.Name: SAM ISAAC.ID: [id number] St.Date: 10/02/2017 Refer.MD: NORIS NEUMANN MD Exam Time: 5:20:00 PM Study Type:LE Venous Age: 2 1960,56Y Sex: MALE Sonogrphr: [place]ION [place], SAVANNA Pat. Stat.:Inpatient Room: [place] [address] A Tape Vol: JM, CPT - 4: 77107 Echo Event ID:[id number] Order ID: [id number] Reason for Study:Evaluate for DVT. History of [...] Signed 10/02/2017 06:33 PM Chanell Fitzgerald MD, VI Performing Organization Address City/State/Zipcode Phone Number [facility] [address] [place] [address] * Echocardiogram complete w contrast and 3D if needed (10/02/2017 4:21 PM FARM EQUIPMENT ENGINE MECHANIC) Narrative Performed At [facility] Echocardiography Report [address] [place] [id number] Pat.Name:Beatris ISAAC.ID:[id number] .Date: 10/02/2017 Refer.MD:NORIS NEUMANN MD Exam Time: 4:15:00 PMStudy Type:Routine Echo Height:70inWeight:280lb BSA: 2.41 m2 DOBAge:1960,56Y Sex: MALEBP:137/72 HR:73 bpmSonogrphr: Kaycee Ascencio, [facility] Pat. Stat.:Inpatient Room:[facility] Study Status:Final Echo Event ID:[id number] Order ID:[id number] Reason for Study:HF - Re-eval of known [...] RAPof 10 mmHg. MEASUREMENTS: 2D Parasternal [place] LVOT 2.2 cmLA Ds4.4 cm LVIDd6.6 cmIndex2.7 cm/m Ao An2.4 cm LVIDs5.8 cmAo Rtd 3 cm Index1.3 cm/m LV%fs 12.1 % LV Tknz513.4 g(122-174) IVSd 1.4 cmLVM Gkeqj464.7 g/m2 LVPWd1.4 cmRWT0.4 LA Sng Plane LA Area 24.6 cm2(8.8-23.4) LA Vol71.3 ml Index29.6 ml/m LA LngAx 7 cm RA Sng Plane RA Area 21 cm2(8.3-19.5) RA Vol63.9 ml Index26.5 ml/m RA LngAx 5.8 cm DOPPLER LVOT For Flow LVOT Area3.8 cm2 LVOT SV 52.8 ml LVOTpkVel 76 cm/sHR67.3 bpm LVOTpkPG 2.3 mmHgLVOT CO3.6 l/min LVOTmnPG 1.2 mmHgLVOT CI1.5 l/m/m2 LVOT TVI13.9 cm Signed 10/02/2017 06:54 PM Jaspal Power M.D. Procedure Note Interface, Radiology Results In - 10/02/2017 6:55 PM FARM EQUIPMENT ENGINE MECHANIC Echocardiography Report [address] [place] [address] Pat.Name: SAM ISAAC.ID: [id number] .Date: 10/02/2017 Refer.MD: NORIS NEUMANN MD Exam Time: 4:15:00 PM Study Type:Routine Echo Height: 70in Weight: 280lb BSA: 2.41 m2 Age: 2 1960,56Y Sex: MALE BP: 137/72 HR: 73 bpm Sonogrphr: Kaycee Ascencio RDCS Pat. Stat.:Inpatient Room: [facility] Study Status:Final Echo Event ID:[id number] Order ID: [id number] Reason for Study:HF - Re-eval of known [...] of 10 mmHg. MEASUREMENTS: 2D Parasternal [place] LVOT 2.2 cm LA Ds 4.4 cm [...] 13.9 cm Signed 10/02/2017 06:54 PM Jaspal Poewr M.D. Performing Organization Address [facility] Phone Number [facility] [address] [place] [address] * Arterial blood gas (10/02/2017 7:36 AM FARM EQUIPMENT ENGINE MECHANIC) Only the most recent of 6 results within the time period is included. pH, arterial 7.35 - 7.45 [facility] DEPARTMENT OF PATHOLOGY AND GENOMIC MEDICINE pCO2, arterial (H) 35 - 45 mmHg [facility] DEPARTMENT OF PATHOLOGY AND GENOMIC MEDICINE pO2, arterial (H) 80 - 90 mmHg [facility] DEPARTMENT OF PATHOLOGY AND GENOMIC MEDICINE Bicarbonate, arterial (H) 21.0 - 28.0 mmol/L [facility] DEPARTMENT OF PATHOLOGY AND GENOMIC MEDICINE Base excess, arterial (H) -2 - 2 mEq/L [facility] DEPARTMENT OF PATHOLOGY AND GENOMIC MEDICINE O2 saturation, arterial 95 - 100 % [facility] DEPARTMENT OF PATHOLOGY AND GENOMIC MEDICINE Specimen Blood Performing Organization Address [facility] Phone Number [facility] DEPARTMENT OF [address] [place] [address] PATHOLOGY AND GENOMIC MEDICINE * Urine drugs of abuse screen (09/30/2017 4:00 PM FARM EQUIPMENT ENGINE MECHANIC) Amphetamine screen, urine [facility] DEPARTMENT OF PATHOLOGY AND GENOMIC MEDICINE Barbiturate screen, urine [facility] DEPARTMENT OF PATHOLOGY AND GENOMIC MEDICINE Benzodiazepine screen, [facility] DEPARTMENT OF urine PATHOLOGY AND GENOMIC MEDICINE Cannabinoid screen, urine [facility] DEPARTMENT OF PATHOLOGY AND GENOMIC MEDICINE Cocaine screen, urine [facility] DEPARTMENT OF PATHOLOGY AND GENOMIC MEDICINE Methadone metabolite [facility] DEPARTMENT OF (EDDP), urine PATHOLOGY AND GENOMIC MEDICINE Opiates screen, urine [facility] DEPARTMENT OF PATHOLOGY AND GENOMIC MEDICINE Oxycodone screen, urine [facility] DEPARTMENT OF PATHOLOGY AND GENOMIC MEDICINE Phencyclidine screen, [facility] DEPARTMENT OF urine PATHOLOGY AND GENOMIC MEDICINE Tricyclic screen, urine Comment: [facility] DEPARTMENT OF Drug screen minimum PATHOLOGY AND concentration of detectability GENOMIC MEDICINE Amphetamines 1000 ng/mL Barbiturates 200 ng/mL Benzodiazepines [...] purposes only. Specimen Urine Performing Organization Address City/State/Zipcode Phone Number [facility] DEPARTMENT [address] [address] PATHOLOGY AND GENOMIC MEDICINE * Urinalysis, automated with microscopy (09/30/2017 4:00 PM FARM EQUIPMENT ENGINE MECHANIC) Color, [facility] DEPARTMENT OF PATHOLOGY AND GENOMIC MEDICINE Appearance, [facility] DEPARTMENT OF PATHOLOGY AND GENOMIC MEDICINE Specific gravity, UA 1.001 - 1.035 [facility] DEPARTMENT OF PATHOLOGY AND GENOMIC MEDICINE pH, UA 5.0 - 8.5 [facility] DEPARTMENT OF PATHOLOGY AND GENOMIC MEDICINE Protein, UA Negative [facility] DEPARTMENT OF PATHOLOGY AND GENOMIC MEDICINE Glucose, UA Negative [facility] DEPARTMENT OF PATHOLOGY AND GENOMIC MEDICINE Ketones, UA Negative [facility] DEPARTMENT OF PATHOLOGY AND GENOMIC MEDICINE Bilirubin, UA Negative [facility] DEPARTMENT OF PATHOLOGY AND GENOMIC MEDICINE Blood, UA Negative [facility] DEPARTMENT OF PATHOLOGY AND GENOMIC MEDICINE Nitrite, UA Negative [facility] DEPARTMENT OF PATHOLOGY AND GENOMIC MEDICINE Urobilinogen, UA <2.0 [facility] DEPARTMENT OF PATHOLOGY AND GENOMIC MEDICINE Leukocyte esterase, UA Negative [facility] DEPARTMENT OF PATHOLOGY AND GENOMIC MEDICINE Epithelial cells, UA /HPF [facility] DEPARTMENT OF PATHOLOGY AND GENOMIC MEDICINE WBC, UA 0 - 1 /HPF [facility] DEPARTMENT OF PATHOLOGY AND GENOMIC MEDICINE RBC, UA 0 - 1 /HPF [facility] DEPARTMENT OF PATHOLOGY AND GENOMIC MEDICINE Bacteria, UA None seen [facility] DEPARTMENT OF PATHOLOGY AND GENOMIC MEDICINE Hyaline casts, UA /LPF [facility] DEPARTMENT OF PATHOLOGY AND GENOMIC MEDICINE Yeast, UA [facility] DEPARTMENT OF PATHOLOGY AND GENOMIC MEDICINE Yeast with pseudohyphae, [facility] PATHOLOGY AND GENOMIC MEDICINE Specimen Urine Performing Organization Address City/[facility]/Zipcode Phone Number [facility] [address] [address] PATHOLOGY AND GENOMIC MEDICINE * Respiratory pathogen panel (09/30/2017 3:22 PM FARM EQUIPMENT ENGINE MECHANIC) Respiratory pathogen Comment: [facility] panel Specimen Information PATHOLOGY AND Specimen Source: [facility] Specimen Site: Not specified Specimen Nares - Not specified Performing Organization Address City/[facility]/Zipcode Phone Number [facility] [place] [phone] PATHOLOGY AND GENOMIC MEDICINE * Hemoglobin A1c (09/30/2017 1:17 PM FARM EQUIPMENT ENGINE MECHANIC) Hemoglobin A1C (H) 4.0 - 5.6 % [facility] Comment: PATHOLOGY AND HbA1c cutoffs for diagnosing GENOMIC MEDICINE diabetes: 4.0% - 5.6%=normal 5.7% - 6.4%=increased risk for diabetes (prediabetes) >=6.5%=diabetes Goals for glycemic control (ADA 2016) < 7.0%Target for non adults with diabetes. More or less stringent targets may be appropriate for individual patients. <7.5% Target for Children and adolescents with type 1 diabetes. Specimen Blood Performing Organization Address City/State/Zipcode Phone Number [facility] [address] [place] [address] PATHOLOGY AND GENOMIC MEDICINE * CRITICAL CARE (09/30/2017 12:25 AM FARM EQUIPMENT ENGINE MECHANIC) Narrative Performed At Jacek Fuentes DO 09/30/2017 12:25 AM Critical Care Performed by: GINA NESS Authorized by: JACEK FUENTES Critical care provider statement: Critical care time (minutes):35 Critical care time was exclusive of:Teaching time and separately billable procedures and treating other patients (hypertensive emergency) Critical care was necessary to treat or prevent imminent or life-threatening deterioration of the following conditions:Cardiac failure, circulatory failure, STAGECRAFT TEACHER failure or compromise, dehydration, hepatic failure, metabolic [...] * Creatine kinase, total (CPK) (09/29/2017 9:56 PM FARM EQUIPMENT ENGINE MECHANIC) Creatine kinase (H) 39 - 308 U/L [facility] OF PATHOLOGY AND GENOMIC MEDICINE Specimen Plasma specimen Performing Organization Address City/State/Zipcode Phone Number [facility] [address] [place] [address] PATHOLOGY AND GENOMIC MEDICINE * Comprehensive metabolic panel (09/29/2017 9:56 PM FARM EQUIPMENT ENGINE MECHANIC) Sodium 135 - 148 mEq/L [facility] OF PATHOLOGY AND GENOMIC MEDICINE Potassium 3.5 - 5.0 mEq/L [facility] OF PATHOLOGY AND GENOMIC MEDICINE Chloride 98 - 112 mEq/L [facility] PATHOLOGY AND GENOMIC MEDICINE CO2 (H) 24 - 31 mEq/L [facility] OF PATHOLOGY AND GENOMIC MEDICINE Anion gap Comment: 7 - 15 mEq/L [facility] Starting from January PATHOLOGY AND , anion gap calculation GENOMIC MEDICINE no longer incorporates potassium. Please note the change. BUN 6 - 20 mg/dL [facility] OF PATHOLOGY AND GENOMIC MEDICINE Creatinine 0.7 - 1.2 mg/dL [facility] PATHOLOGY AND GENOMIC MEDICINE Glucose (H) 65 - 99 mg/dL [facility] PATHOLOGY AND GENOMIC MEDICINE Calcium 8.3 - 10.2 mg/dL [facility] PATHOLOGY AND GENOMIC MEDICINE Protein Comment: 6.3 - 8.3 g/dL [facility] OF PATHOLOGY AND 4.6-7.0 g/dL GENOMIC MEDICINE 1 week 4.4-7.6 g/dL 7 months-1year 5.1-7.3 g/dL 1-2 years5.6-7 .5 g/dL >3 years6.0-8 .0 g/dL 18-150 6.3-8.3 g/dL Albumin 3.5 - 5.0 g/dL [facility] OF PATHOLOGY AND GENOMIC MEDICINE A/G ratio 0.7 - 3.8 [facility] OF PATHOLOGY AND GENOMIC MEDICINE Alkaline phosphatase 40 - 129 U/L [facility] OF PATHOLOGY AND GENOMIC MEDICINE AST 10 - 50 U/L [facility] OF PATHOLOGY AND GENOMIC MEDICINE ALT 5 - 50 U/L [facility] PATHOLOGY AND GENOMIC MEDICINE Total bilirubin 0.0 - 1.2 mg/dL [facility] OF PATHOLOGY AND GENOMIC MEDICINE Specimen Plasma specimen Performing Organization Address City/State/Zipcode Phone Number [facility] [address] [place] [address] PATHOLOGY AND GENOMIC MEDICINE after 09/14/2017 Insurance Payer Benefit Subscriber ID Type Phone Address Plan / Group [employer] MEDICAID [employer] xxxxxxxxx HMO COMM STAR+ ALEJANDRA Advance Directives Patient has advance care planning documents, and code status on file. For more i nformation, please contact: Yg Chandra [address] [place] [address] Date Inactivated Comments Code Status Date Activated 01/24/2017 5:07 PM Full Code 01/23/2017 2:32 AM Code Status decision reached by: Patient
--- OUTSIDE RECORDS SUMMARY | 2018-09-15 21:06 | XMS REPORT ---
Author Author Admin, [employer] [facility] Address [address] [place] [address] Phone Allergies, Adverse Reactions, Alerts Allergy Name Reaction Description Start Date Severity Status Provider No Known Allergies Donato Leon MD Conditions or Problems Problem Name Problem Code Onset Date Status Entry Date Provider Comment Standard Description Annotate Major depression, recurrent, severe 296.33 Active Donato Leon MD Major depressive disorder, recurrent episode, severe degree, without mention of psychotic behavior Schizophrenia 295.90 Active Donato Leon MD Unspecified schizophrenia, unspecified state ESSENTIAL HYPERTENSION 401.9 Active Anil Irizarry MD Unspecified essential hypertension ADJUSTMENT DISORDER, W/ DEPRESSED MOOD Inactive Donato Leon MD DIAGNOSIS DEFERRED, AXIS II ICD-799.9 Inactive Donato Leon MD SCHIZOPHRENIA, 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 Inactive Fang Harpalundestini Paranoid type schizophrenia, unspecified state Post traumatic stress disorder ICD-309.81 Inactive Donato Leon MD POST-TRAUMATIC STRESS DISORDER 309.81 Inactive Anil Irizarry MD Posttraumatic stress disorder SCHIZOPHRENIA, 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 Inactive Anil Irizarry MD SCHIZOPHRENIA 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 Inactive Donato Leon MD SCHIZOPHRENIA, DISORGANIZED TYPE ICD-295.10 Inactive Anil Irizarry MD ADJUSTMENT DISORDER, W/ DEPRESSED MOOD Resolved Donato Leon MD DIAGNOSIS DEFERRED, AXIS II 799.9 Resolved Donato Leon MD Other unknown and unspecified cause of morbidity or mortality Post traumatic stress disorder 309.81 Resolved Donato Leon MD Posttraumatic stress disorder SCHIZOPHRENIA, 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 Resolved Anil Irizarry MD Unspecified schizophrenia, unspecified state SCHIZOPHRENIA 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 Resolved Donato Leon MD Unspecified schizophrenia, unspecified state SCHIZOPHRENIA, DISORGANIZED TYPE 295.10 Resolved Anil Irizarry MD Disorganized type schizophrenia, unspecified state Medication List Medication Instructions Start Date Stop Date Generic Name NDC Status Provider Patient Instruction FUROSEMIDE 40 MG ORAL TABLET TK 1 T PO BID FUROSEMIDE 27304216615 Active Donato Leon MD Active MAGNESIUM-OXIDE 400 (241.3 MG) MG ORAL TABLET TK 1 T PO D MAGNESIUM OXIDE 65848347507 Active Donato Leon MD Active TRAMADOL HCL 50 MG ORAL TABLET TK 1-2 TABLETS PO Q 6 HOURS PRN P TRAMADOL HCL 18284121626 Active Donato Leon MD Active INSULIN SYRINGE 30G X 5/16" 0.3 ML INSULIN SYRINGE-NEEDLE U-100 65013494409 Cristo Leon MD Active BISACODYL EC 5 MG ORAL TABLET DELAYED RELEASE TAKE 2 TABLETS BY MOUTH DAILY NEEDED. BISACODYL 26254872491 Active Donato Leon MD Active CARVEDILOL 6.25 MG ORAL TABLET CARVEDILOL 14280183720 Active Donato Leon MD Active ENTRESTO 24-26 MG ORAL TABLET SACUBITRIL-VALSARTAN 21417778015 Active Donato Leon MD Active LANTUS 100 UNIT/ML SUBCUTANEOUS SOLUTION INSULIN GLARGINE 40727222441 Cristo Leon MD Active PANTOPRAZOLE SODIUM 40 MG ORAL TABLET DELAYED RELEASE PANTOPRAZOLE SODIUM 79076516890 Cristo Leon MD Active POLYETHYLENE GLYCOL 3350 ORAL PACKET POLYETHYLENE GLYCOL 3350 03702184964 Active Donato Leon MD Active ATORVASTATIN CALCIUM 10 MG ORAL TABLET TK 1 T PO QD ATORVASTATIN CALCIUM 99090226574 Active Donato Leon MD Active LEXAPRO 10 MG ORAL TABLET Take 1 tab By Mouth Every Morning for depression ESCITALOPRAM OXALATE 12737828940 Active Donato Leon MD Active RISPERDAL 1 MG ORAL TABLET 1 tab By Mouth Twice a Day for psychosis RISPERIDONE 18254373752 Active Donato Leon MD Active CLONAZEPAM 0.5 MG ORAL TABLET Take 1 tab By Mouth Twice a Day for anxiety CLONAZEPAM 0.5 MG ORAL TABLET 825159 CLONAZEPAM Inactive SEROQUEL 100 MG ORAL TABLET 1 tab By Mouth take at bedtime for mood, psychosis SEROQUEL 100 MG ORAL TABLET 365980 QUETIAPINE FUMARATE Inactive SEROQUEL 200 MG ORAL TABLET Take 1 tablet By Mouth at bedtime SEROQUEL 200 MG ORAL TABLET 336169 QUETIAPINE FUMARATE Inactive COGENTIN 1 MG/ML INJECTION SOLUTION take tab By Mouth Twice a Day/Give in tablet form COGENTIN 1 MG/ML INJECTION SOLUTION 608217 BENZTROPINE MESYLATE Inactive SEROQUEL 200 MG ORAL TABLET Take 2 tab at bedtime By Mouth SEROQUEL 200 MG ORAL TABLET 205765 QUETIAPINE FUMARATE Inactive COGENTIN 1 MG/ML INJECTION SOLUTION take 1 tab By Mouth Every Morning COGENTIN 1 MG/ML INJECTION SOLUTION 797902 BENZTROPINE MESYLATE Inactive RISPERDAL 1 MG ORAL TABLET take 1 tab By Mouth Twice a Day RISPERDAL 1 MG ORAL TABLET 607539 RISPERIDONE Inactive SEROQUEL 200 MG ORAL TABLET take 1 tab By Mouth at bedtime SEROQUEL 200 MG ORAL TABLET 459082 QUETIAPINE FUMARATE Inactive DOXEPIN HCL 10 MG ORAL CAPSULE 1 cap morning and night DOXEPIN HCL 10 MG ORAL CAPSULE 5410345 DOXEPIN HCL Inactive TENEX 1 MG ORAL TABLET 0.5 - 1 tab morning and night TENEX 1 MG ORAL TABLET GUANFACINE HCL Inactive LISINOPRIL 20 MG ORAL TABLET 1 tab Every day LISINOPRIL 20 MG ORAL TABLET 687434 LISINOPRIL Inactive RISPERDAL 2 MG ORAL TABLET 1 tab Every at bedtime RISPERDAL 2 MG ORAL TABLET 596859 RISPERIDONE Inactive CLONAZEPAM 0.5 MG ORAL TABLET Take 1 tab By Mouth Twice a Day for anxiety CLONAZEPAM 86865216875 No Longer Active Donato Leon MD Active SEROQUEL 100 MG ORAL TABLET 1 tab By Mouth take at bedtime for mood, psychosis QUETIAPINE FUMARATE 21915762273 No Longer Active Donato Leon MD Active SEROQUEL 200 MG ORAL TABLET Take 1 tablet By Mouth at bedtime QUETIAPINE FUMARATE 48553938978 No Longer Active Donato Leon MD Active COGENTIN 1 MG/ML INJECTION SOLUTION take tab By Mouth Twice a Day/Give in tablet form BENZTROPINE MESYLATE 85294404807 No Longer Active Fang [employer] Active SEROQUEL 200 MG ORAL TABLET Take 2 tab at bedtime By Mouth QUETIAPINE FUMARATE 93189667554 No Longer Active Fang [employer] Active COGENTIN 1 MG/ML INJECTION SOLUTION take 1 tab By Mouth Every Morning BENZTROPINE MESYLATE 86993225560 No Longer Active Fang [employer] Active RISPERDAL 1 MG ORAL TABLET take 1 tab By Mouth Twice a Day RISPERIDONE 86518379349 No Longer Active Fang [employer] Active SEROQUEL 200 MG ORAL TABLET take 1 tab By Mouth at bedtime QUETIAPINE FUMARATE 13364447934 No Longer Active Fang [employer]okun Active DOXEPIN HCL 10 MG ORAL CAPSULE 1 cap morning and night DOXEPIN HCL 72211135662 No Longer Active Anil Irizarry MD Active TENEX 1 MG ORAL TABLET 0.5 - 1 tab morning and night GUANFACINE HCL 44796902739 No Longer Active Anil Irizarry MD Active LISINOPRIL 20 MG ORAL TABLET 1 tab Every day LISINOPRIL 10583412069 No Longer Active Donato Leon MD Active RISPERDAL 2 MG ORAL TABLET 1 tab Every at bedtime RISPERIDONE 80010124353 No Longer Active Anil Irizarry MD Active Vital Signs Date Name Value Unit Range Description blood pressure, diastolic 96 mm[Hg] BP mariee blood pressure, systolic 190 mm[Hg] BP sys height E&M 70 [in_us] Bdy height pulse rate E&M 53 /min Heart rate weight E&M 288.25 [lb_av] Weight Measured blood pressure, diastolic 93 mm[Hg] BP mariee blood pressure, systolic 143 mm[Hg] BP sys height E&M 70 [in_us] Bdy height pulse rate E&M 83 /min Heart rate weight E&M 290.25 [lb_av] Weight Measured Encounters Date Encounter Provider Code Facility 10:21:25 CDT Est Patient Exp Problem - 94376 Donato Leon MD CPT-46508 [facility] 10:57:05 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 Est 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 Detailed - 84922 Donato Leon MD CPT-53857 [facility] 08:23:34 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 Est Patient Exp Problem - 75438 Donato Leon MD CPT-82206 [facility] 10:35:14 CDT Est Patient Exp Problem - 97259 Donato Leon MD CPT-53371 [facility] 10:04:33 CDT Est Patient Exp Problem - 41864 Donato Leon MD CPT-02181 [facility] 13:58:12 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 Est Patient Problem Focus - 91660 Donato Leon MD CPT-90307 [facility] 14:13:13 CDT Est Patient Problem Focus - 85925 Donato Leon MD CPT-35904 [facility] 10:14:44 CDT Est Patient Exp Problem - 70170 Fang O[employer]un CPT-94610 [facility] 10:09:34 CDT Est Patient Exp Problem - 85046 Fang [employer] CPT-19082 [facility] 14:20:59 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 Est Patient Exp Problem - 35365 Anil Irizarry MD CPT-44256 [facility] 08:16:43 CDT Est Patient Exp Problem - 30814 Anil Irizarry MD CPT-19877 [facility] 09:05:41 CDT Est Patient Exp Problem - 59801 Anil Irizarry MD CPT-09649 [facility] 09:26:09 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 Est Patient Exp Problem - 75659 Anil Irizarry MD CPT-31877 [facility] Procedures Code Procedure Name Date Entry Date Standard Description CPT-35917 Psychotherapy 45 (38-52*) min - 85493 (with patient and/or family member) 08:10:50 CDT CPT-97137 Psychotherapy 45 (38-52*) min - 79349 (with patient and/or family member) 21:56:55 CDT CPT-18453 Psychotherapy 45 (38-52*) min - 01804 (with patient and/or family member) 18:23:03 CDT CPT-98797 Psychotherapy 45 (38-52*) min - 38546 (with patient and/or family member) 16:09:41 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 CPT-94113 Psychotherapy 45 (38-52*) min - 27970 (with patient and/or family member) 17:15:13 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 CPT-68961 Diagnostic evaluation with medical - 81537 08:26:28 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 CPT-66266 Psychotherapy 30 (16-37*) min - 90774 (with patient and/or family member) 17:29:25 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 CPT-57149 Psychotherapy 45 (38-52*) min - 67017 (with patient and/or family member) 22:03:39 CDT CPT-82908 Psychotherapy 45 (38-52*) min - 51699 (with patient and/or family member) 17:20:10 CDT CPT-15719 Psychotherapy 45 (38-52*) min - 80255 (with patient and/or family member) 13:30:09 CDT CPT-39573 Psychotherapy 45 (38-52*) min - 16001 (with patient and/or family member) 21:22:13 CDT CPT-78208 Diagnostic evaluation (no medical) - 44690 16:48:49 CDT
[2018-09-15 21:37] LABS: BASOPHILS % 0.5 % (0.0-1.0); EOSINOPHILS # (AUTO) 0.2 (0.0-0.4); EOSINOPHILS % 2.4 % (0.0-6.0); HEMATOCRIT 47.8 % (38.2-49.6); HEMOGLOBIN 13.8 g/dL (14.0-18.0); LYMPHOCYTES # (AUTO) 2.6 (1.0-3.2); LYMPHOCYTES % 29.8 % (18.0-39.1); MEAN CORPUSCULAR HEMOGLOBIN 24.4 pg (28-32); MEAN CORPUSCULAR HGB CONC 28.9 g/dL (31-35); MEAN CORPUSCULAR VOLUME 84.5 fL (81-99); MONOCYTES # (AUTO) 0.8 (0.2-0.8); MONOCYTES % 9.2 % (4.4-11.3); NEUTROPHILS % 57.8 % (38.7-80.0); PLATELET COUNT 168 x10e3/uL (140-360); RED BLOOD COUNT 5.66 x10e6/uL (4.3-5.7); RED CELL DISTRIBUTION WIDTH 14.1 % (11.7-14.4)
[2018-09-15] MEDS ORDERED: ALBUTEROL/IPRATROPIUM 3 ML NEB NEB ONE (21:45)
[2018-09-15 21:46] LABS: INR 0.91; PROTHROMBIN TIME 13.1 seconds (11.9-14.5)
[2018-09-15 21:47] LABS: PARTIAL THROMBOPLASTIN TIME 31.9 seconds (23.8-35.5)
[2018-09-15 21:55] LABS: ALBUMIN 3.7 g/dL (3.5-5.0); ALBUMIN/GLOBULIN RATIO 0.9 (0.8-2.0); ANION GAP 14.7 mmol/L (8-16); CALCIUM 8.4 mg/dL (8.4-10.2); CREATININE, SERUM 1.64 mg/dL (0.72-1.25); POTASSIUM 3.7 mmol/L (3.5-5.1)
[2018-09-15 22:02] LABS: CREATINE KINASE MB 2.6 ng/mL (0-5.0)
--- OUTSIDE RECORDS SUMMARY | 2018-09-15 22:07 | XMS REPORT | Clinical Summary ---
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; Anemia of chronic disease [...] Taken Vital Sign Reading 10/19/2017 9:19 AM OUTREACH TEAM MEMBER Blood Pressure 156/93 10/19/2017 9:19 AM OUTREACH TEAM MEMBER Pulse 85 10/19/2017 9:19 AM OUTREACH TEAM MEMBER Temperature 35.8 C (96.4 F) 10/15/2017 3:44 PM OUTREACH TEAM MEMBER Respiratory Rate 16 10/15/2017 3:44 PM OUTREACH TEAM MEMBER Oxygen Saturation 93% - Inhaled Oxygen - Concentration 10/19/2017 9:19 AM OUTREACH TEAM MEMBER Weight 136 kg (299 lb 12.8 oz) 10/19/2017 9:19 AM OUTREACH TEAM MEMBER Height 177.8 cm (5' 10") 10/19/2017 9:19 AM OUTREACH TEAM MEMBER Body Mass Index 43.02 Plan of Treatment [...] Area Manufactur er 11/29/2021 [id number] / / [id number] [place] Df4 Tachy Lead - Cardiac N/A: N/A [place] [id number] Pacing SCIENTIFIC Implanted: Qty: 1 on 10/03/2017 by Leads or - Abraham Mathew Jr., MD Electrodes or Accessorie s [id number] / [id number] / [id number] Dynagen El Icd Df4 Vr Defibrilla [place] Implanted: Qty: 1 on 10/03/2017 by tor ICD SCIENTIFIC Estevan, Nadim Jr., MD Devices Pins In Lumbar L4-L5 Procedures Comments Procedure Name Priority Date/Time Associated Diagnosis ZZESTIMATED GFR STAT 10/19/2017 10:00 AM OUTREACH TEAM MEMBER B NATRIURETIC PEPTIDE STAT 10/19/2017 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 MAGNESIUM LEVEL STAT 10/19/2017 Chronic systolic heart 10:00 AM OUTREACH TEAM MEMBER failure BASIC METABOLIC PANEL STAT 10/19/2017 Chronic systolic heart 10:00 AM OUTREACH TEAM MEMBER failure XR CHEST 1 VW PORTABLE Routine 10/15/2017 3:49 PM OUTREACH TEAM MEMBER POC GLUCOSE Routine 10/15/2017 11:38 AM OUTREACH TEAM MEMBER POC GLUCOSE Routine 10/15/2017 8:13 AM OUTREACH TEAM MEMBER POC GLUCOSE Routine 10/15/2017 5:26 AM OUTREACH TEAM MEMBER POC GLUCOSE Routine 10/14/2017 10:01 PM OUTREACH TEAM MEMBER POC GLUCOSE Routine 10/14/2017 5:18 PM OUTREACH TEAM MEMBER POC GLUCOSE Routine 10/14/2017 11:34 AM OUTREACH TEAM MEMBER POC GLUCOSE Routine 10/14/2017 7:41 AM OUTREACH TEAM MEMBER POC GLUCOSE Routine 10/14/2017 5:51 AM OUTREACH TEAM MEMBER ZZESTIMATED GFR Routine 10/14/2017 5:00 AM OUTREACH TEAM MEMBER BASIC METABOLIC PANEL Routine 10/14/2017 5:00 AM OUTREACH TEAM MEMBER HC COMPLETE BLD COUNT Routine 10/14/2017 W/AUTO DIFF 5:00 AM OUTREACH TEAM MEMBER POC GLUCOSE Routine 10/13/2017 9:13 PM OUTREACH TEAM MEMBER POC GLUCOSE Routine 10/13/2017 5:29 PM OUTREACH TEAM MEMBER POC GLUCOSE Routine 10/13/2017 11:23 AM OUTREACH TEAM MEMBER POC GLUCOSE Routine 10/13/2017 6:08 AM OUTREACH TEAM MEMBER ZZESTIMATED GFR Routine 10/13/2017 5:20 AM OUTREACH TEAM MEMBER BASIC METABOLIC PANEL Routine 10/13/2017 5:20 AM OUTREACH TEAM MEMBER HC COMPLETE BLD COUNT Routine 10/13/2017 W/AUTO DIFF 5:20 AM OUTREACH TEAM MEMBER POC GLUCOSE Routine 10/12/2017 9:10 PM OUTREACH TEAM MEMBER POC GLUCOSE Routine 10/12/2017 5:44 PM OUTREACH TEAM MEMBER POC GLUCOSE Routine 10/12/2017 12:31 PM OUTREACH TEAM MEMBER POC GLUCOSE Routine 10/12/2017 7:27 AM OUTREACH TEAM MEMBER ZZESTIMATED GFR Routine 10/12/2017 5:30 AM OUTREACH TEAM MEMBER BASIC METABOLIC PANEL Routine 10/12/2017 5:30 AM OUTREACH TEAM MEMBER HC COMPLETE BLD COUNT Routine 10/12/2017 W/AUTO DIFF 5:30 AM OUTREACH TEAM MEMBER POC GLUCOSE Routine 10/11/2017 9:13 PM OUTREACH TEAM MEMBER POC GLUCOSE Routine 10/11/2017 6:01 PM OUTREACH TEAM MEMBER POC GLUCOSE Routine 10/11/2017 11:16 AM OUTREACH TEAM MEMBER POC GLUCOSE Routine 10/11/2017 7:32 AM OUTREACH TEAM MEMBER ZZESTIMATED GFR Routine 10/11/2017 5:59 AM OUTREACH TEAM MEMBER BASIC METABOLIC PANEL Routine 10/11/2017 5:59 AM OUTREACH TEAM MEMBER HC COMPLETE BLD COUNT Routine 10/11/2017 W/AUTO DIFF 5:59 AM OUTREACH TEAM MEMBER CT CHEST WO CONTRAST STAT 10/10/2017 10:22 PM OUTREACH TEAM MEMBER POC GLUCOSE Routine 10/10/2017 8:39 PM OUTREACH TEAM MEMBER POC GLUCOSE Routine 10/10/2017 5:23 PM OUTREACH TEAM MEMBER POTASSIUM LEVEL STAT 10/10/2017 2:15 PM OUTREACH TEAM MEMBER POC GLUCOSE Routine 10/10/2017 11:19 AM OUTREACH TEAM MEMBER POC GLUCOSE Routine 10/10/2017 7:56 AM OUTREACH TEAM MEMBER ZZESTIMATED GFR Routine 10/10/2017 5:45 AM OUTREACH TEAM MEMBER HC COMPLETE BLD COUNT Routine 10/10/2017 W/AUTO DIFF 5:45 AM OUTREACH TEAM MEMBER BASIC METABOLIC PANEL Routine 10/10/2017 5:45 AM OUTREACH TEAM MEMBER POC GLUCOSE Routine 10/09/2017 8:45 PM OUTREACH TEAM MEMBER POC GLUCOSE Routine 10/09/2017 5:21 PM OUTREACH TEAM MEMBER POC GLUCOSE Routine 10/09/2017 11:50 AM OUTREACH TEAM MEMBER POC GLUCOSE Routine 10/09/2017 6:51 AM OUTREACH TEAM MEMBER POC GLUCOSE Routine 10/09/2017 4:33 AM OUTREACH TEAM MEMBER ZZESTIMATED GFR Routine 10/09/2017 4:30 AM OUTREACH TEAM MEMBER BASIC METABOLIC PANEL Routine 10/09/2017 4:30 AM OUTREACH TEAM MEMBER HC COMPLETE BLD COUNT Routine 10/09/2017 W/AUTO DIFF 4:30 AM OUTREACH TEAM MEMBER POC GLUCOSE Routine 10/08/2017 9:12 PM OUTREACH TEAM MEMBER POC GLUCOSE Routine 10/08/2017 5:34 PM OUTREACH TEAM MEMBER POC GLUCOSE Routine 10/08/2017 11:36 AM OUTREACH TEAM MEMBER NM LUNG VENTILATION Routine 10/08/2017 PERFUSION 9:48 AM OUTREACH TEAM MEMBER POC GLUCOSE Routine 10/08/2017 7:19 AM OUTREACH TEAM MEMBER HC COMPLETE BLD COUNT Routine 10/08/2017 W/AUTO DIFF 4:50 AM OUTREACH TEAM MEMBER ZZESTIMATED GFR Routine 10/08/2017 4:00 AM OUTREACH TEAM MEMBER MAGNESIUM LEVEL Routine 10/08/2017 4:00 AM OUTREACH TEAM MEMBER BASIC METABOLIC PANEL Routine 10/08/2017 4:00 AM OUTREACH TEAM MEMBER POC GLUCOSE Routine 10/07/2017 9:21 PM OUTREACH TEAM MEMBER POC GLUCOSE Routine 10/07/2017 3:59 PM OUTREACH TEAM MEMBER POC GLUCOSE Routine 10/07/2017 12:08 PM OUTREACH TEAM MEMBER POC GLUCOSE Routine 10/07/2017 8:37 AM OUTREACH TEAM MEMBER SMEAR REVIEW Routine 10/07/2017 4:15 AM OUTREACH TEAM MEMBER B NATRIURETIC PEPTIDE Routine 10/07/2017 4:15 AM OUTREACH TEAM MEMBER HC COMPLETE BLD COUNT Routine 10/07/2017 W/AUTO DIFF 4:15 AM OUTREACH TEAM MEMBER ZZESTIMATED GFR Routine 10/07/2017 4:00 AM OUTREACH TEAM MEMBER MAGNESIUM LEVEL Routine 10/07/2017 4:00 AM OUTREACH TEAM MEMBER BASIC METABOLIC PANEL Routine 10/07/2017 4:00 AM OUTREACH TEAM MEMBER POC GLUCOSE Routine 10/06/2017 8:21 PM OUTREACH TEAM MEMBER URINALYSIS SCREEN AND Routine 10/06/2017 MICROSCOPY, WITH REFLEX 5:40 PM OUTREACH TEAM MEMBER TO CULTURE URINE CULTURE Routine 10/06/2017 5:40 PM OUTREACH TEAM MEMBER B NATRIURETIC PEPTIDE Routine 10/06/2017 5:35 PM OUTREACH TEAM MEMBER POC GLUCOSE Routine 10/06/2017 5:09 PM OUTREACH TEAM MEMBER BLOOD CULTURE, AEROBIC & Routine 10/06/2017 ANAEROBIC 2:00 PM OUTREACH TEAM MEMBER POC GLUCOSE Routine 10/06/2017 1:25 PM OUTREACH TEAM MEMBER BLOOD CULTURE, AEROBIC & Routine 10/06/2017 ANAEROBIC 1:15 PM OUTREACH TEAM MEMBER ECG 12-LEAD STAT 10/06/2017 12:25 PM OUTREACH TEAM MEMBER MAGNESIUM LEVEL Routine 10/06/2017 7:53 AM OUTREACH TEAM MEMBER ZZESTIMATED GFR Routine 10/06/2017 7:53 AM OUTREACH TEAM MEMBER HC COMPLETE BLD COUNT Routine 10/06/2017 W/AUTO DIFF 7:53 AM OUTREACH TEAM MEMBER BASIC METABOLIC PANEL Routine 10/06/2017 7:53 AM OUTREACH TEAM MEMBER POC GLUCOSE Routine 10/06/2017 7:24 AM OUTREACH TEAM MEMBER POC GLUCOSE Routine 10/06/2017 1:57 AM OUTREACH TEAM MEMBER POC GLUCOSE Routine 10/05/2017 8:41 PM OUTREACH TEAM MEMBER POC GLUCOSE Routine 10/05/2017 5:25 PM OUTREACH TEAM MEMBER POC GLUCOSE Routine 10/05/2017 11:58 AM OUTREACH TEAM MEMBER POC GLUCOSE Routine 10/05/2017 8:13 AM OUTREACH TEAM MEMBER ZZESTIMATED GFR Routine 10/05/2017 4:00 AM OUTREACH TEAM MEMBER BASIC METABOLIC PANEL Routine 10/05/2017 4:00 AM OUTREACH TEAM MEMBER POC GLUCOSE Routine 10/04/2017 8:28 PM OUTREACH TEAM MEMBER POC GLUCOSE Routine 10/04/2017 4:51 PM OUTREACH TEAM MEMBER CV ECHO 2D FOLLOW UP OR STAT 10/04/2017 LIMITED STUDY 4:25 PM OUTREACH TEAM MEMBER XR CHEST 1 VW PORTABLE STAT 10/04/2017 3:58 PM OUTREACH TEAM MEMBER ZZESTIMATED GFR Routine 10/04/2017 2:22 PM OUTREACH TEAM MEMBER PARTIAL THROMBOPLASTIN Routine 10/04/2017 TIME (PTT) 2:22 PM OUTREACH TEAM MEMBER PROTHROMBIN TIME WITH INR Routine 10/04/2017 2:22 PM OUTREACH TEAM MEMBER PHOSPHORUS LEVEL Routine 10/04/2017 2:22 PM OUTREACH TEAM MEMBER TROPONIN Routine 10/04/2017 2:22 PM OUTREACH TEAM MEMBER MAGNESIUM LEVEL Routine 10/04/2017 2:22 PM OUTREACH TEAM MEMBER BASIC METABOLIC PANEL Routine 10/04/2017 2:22 PM OUTREACH TEAM MEMBER ECG 12-LEAD Routine 10/04/2017 2:08 PM OUTREACH TEAM MEMBER ECG PRE/POST OP Routine 10/04/2017 11:53 AM OUTREACH TEAM MEMBER POC GLUCOSE Routine 10/04/2017 11:47 AM OUTREACH TEAM MEMBER POC GLUCOSE Routine 10/04/2017 8:08 AM OUTREACH TEAM MEMBER ZZESTIMATED GFR Routine 10/04/2017 4:00 AM OUTREACH TEAM MEMBER BASIC METABOLIC PANEL Routine 10/04/2017 4:00 AM OUTREACH TEAM MEMBER POC GLUCOSE Routine 10/03/2017 8:21 PM OUTREACH TEAM MEMBER POC GLUCOSE Routine 10/03/2017 3:55 PM OUTREACH TEAM MEMBER XR CHEST 1 VW PORTABLE Routine 10/03/2017 2:31 PM OUTREACH TEAM MEMBER POC GLUCOSE Routine 10/03/2017 1:41 PM OUTREACH TEAM MEMBER EP AICD IMPLANT SINGLE Routine 10/03/2017 DUAL BI VENT 11:27 AM OUTREACH TEAM MEMBER POC GLUCOSE Routine 10/03/2017 7:52 AM OUTREACH TEAM MEMBER PROTHROMBIN TIME WITH INR Routine 10/03/2017 4:15 AM OUTREACH TEAM MEMBER PARTIAL THROMBOPLASTIN Routine 10/03/2017 TIME (PTT) 4:15 AM OUTREACH TEAM MEMBER ZZESTIMATED GFR Routine 10/03/2017 4:15 AM OUTREACH TEAM MEMBER BASIC METABOLIC PANEL Routine 10/03/2017 4:15 AM OUTREACH TEAM MEMBER HC COMPLETE BLD COUNT Routine 10/03/2017 W/AUTO DIFF 4:15 AM OUTREACH TEAM MEMBER POC GLUCOSE Routine 10/02/2017 8:32 PM OUTREACH TEAM MEMBER US DUPLEX VENOUS UPPER Routine 10/02/2017 EXTREMITY BILATERAL 5:46 PM OUTREACH TEAM MEMBER ECHOCARDIOGRAM 2D Routine 10/02/2017 COMPLETE W MMODE SPECTRAL 4:21 PM OUTREACH TEAM MEMBER COLOR DOPPLER ([id number]) POC GLUCOSE Routine 10/02/2017 4:03 PM OUTREACH TEAM MEMBER POC GLUCOSE Routine 10/02/2017 11:30 AM OUTREACH TEAM MEMBER ZZESTIMATED GFR Routine 10/02/2017 8:41 AM OUTREACH TEAM MEMBER BASIC METABOLIC PANEL Routine 10/02/2017 8:41 AM OUTREACH TEAM MEMBER POC GLUCOSE Routine 10/02/2017 7:46 AM OUTREACH TEAM MEMBER ARTERIAL BLOOD GAS Routine 10/02/2017 7:36 AM OUTREACH TEAM MEMBER HC COMPLETE BLD COUNT Routine 10/02/2017 W/AUTO DIFF 5:45 AM OUTREACH TEAM MEMBER ZZESTIMATED GFR Routine 10/02/2017 4:00 AM OUTREACH TEAM MEMBER MAGNESIUM LEVEL Routine 10/02/2017 4:00 AM OUTREACH TEAM MEMBER BASIC METABOLIC PANEL Routine 10/02/2017 4:00 AM OUTREACH TEAM MEMBER POC GLUCOSE Routine 10/01/2017 8:54 PM OUTREACH TEAM MEMBER POC GLUCOSE Routine 10/01/2017 3:52 PM OUTREACH TEAM MEMBER POC GLUCOSE Routine 10/01/2017 1:05 PM OUTREACH TEAM MEMBER POC GLUCOSE Routine 10/01/2017 8:45 AM OUTREACH TEAM MEMBER PHOSPHORUS LEVEL Routine 10/01/2017 3:52 AM OUTREACH TEAM MEMBER ZZESTIMATED GFR Routine 10/01/2017 3:52 AM OUTREACH TEAM MEMBER MAGNESIUM LEVEL Routine 10/01/2017 3:52 AM OUTREACH TEAM MEMBER BASIC METABOLIC PANEL Routine 10/01/2017 3:52 AM OUTREACH TEAM MEMBER ARTERIAL BLOOD GAS Routine 10/01/2017 3:33 AM OUTREACH TEAM MEMBER HC COMPLETE BLD COUNT Routine 10/01/2017 W/AUTO DIFF 3:30 AM OUTREACH TEAM MEMBER B NATRIURETIC PEPTIDE Routine 10/01/2017 3:30 AM OUTREACH TEAM MEMBER ARTERIAL BLOOD GAS STAT 10/01/2017 12:15 AM OUTREACH TEAM MEMBER POC GLUCOSE Routine 09/30/2017 9:00 PM OUTREACH TEAM MEMBER ARTERIAL BLOOD GAS Timed 09/30/2017 8:16 PM OUTREACH TEAM MEMBER POC GLUCOSE Routine 09/30/2017 5:27 PM OUTREACH TEAM MEMBER ARTERIAL BLOOD GAS Timed 09/30/2017 5:00 PM OUTREACH TEAM MEMBER URINALYSIS, AUTOMATED Routine 09/30/2017 WITH MICROSCOPY 4:00 PM OUTREACH TEAM MEMBER URINE DRUGS OF ABUSE Routine 09/30/2017 SCREEN 4:00 PM OUTREACH TEAM MEMBER RESPIRATORY PATHOGEN Routine 09/30/2017 PANEL 3:22 PM OUTREACH TEAM MEMBER XR CHEST 1 VW PORTABLE STAT 09/30/2017 2:29 PM OUTREACH TEAM MEMBER HEMOGLOBIN A1C STAT 09/30/2017 1:17 PM OUTREACH TEAM MEMBER ARTERIAL BLOOD GAS STAT 09/30/2017 12:55 PM OUTREACH TEAM MEMBER TROPONIN STAT 09/30/2017 12:36 PM OUTREACH TEAM MEMBER POC GLUCOSE Routine 09/30/2017 11:21 AM OUTREACH TEAM MEMBER POC GLUCOSE Routine 09/30/2017 7:30 AM OUTREACH TEAM MEMBER ZZESTIMATED GFR Routine 09/30/2017 4:30 AM OUTREACH TEAM MEMBER MAGNESIUM LEVEL Routine 09/30/2017 4:30 AM OUTREACH TEAM MEMBER B NATRIURETIC PEPTIDE Routine 09/30/2017 4:30 AM OUTREACH TEAM MEMBER BASIC METABOLIC PANEL Routine 09/30/2017 4:30 AM OUTREACH TEAM MEMBER POC GLUCOSE Routine 09/30/2017 3:14 AM OUTREACH TEAM MEMBER TROPONIN Timed 09/30/2017 1:45 AM OUTREACH TEAM MEMBER XR CHEST 1 VW PORTABLE STAT 09/30/2017 12:54 AM OUTREACH TEAM MEMBER AR CRITICAL CARE, E/M Routine 09/30/2017 30-74 MINUTES 12:25 AM OUTREACH TEAM MEMBER ZZESTIMATED GFR STAT 09/29/2017 9:56 PM OUTREACH TEAM MEMBER B NATRIURETIC PEPTIDE STAT 09/29/2017 9:56 PM OUTREACH TEAM MEMBER TROPONIN STAT 09/29/2017 9:56 PM OUTREACH TEAM MEMBER CREATINE KINASE, TOTAL STAT 09/29/2017 (CPK) 9:56 PM OUTREACH TEAM MEMBER COMPREHENSIVE METABOLIC STAT 09/29/2017 PANEL 9:56 PM OUTREACH TEAM MEMBER PROTHROMBIN TIME WITH INR STAT 09/29/2017 9:56 PM OUTREACH TEAM MEMBER HC COMPLETE BLD COUNT STAT 09/29/2017 W/AUTO DIFF 9:56 PM OUTREACH TEAM MEMBER ECG 12-LEAD STAT 09/29/2017 7:29 PM OUTREACH TEAM MEMBER after 09/14/2017 Results * Estimated GFR (10/19/2017 10:00 AM OUTREACH TEAM MEMBER) Only the most recent of 19 results within the time period is included. GFR Non Af Amer mL/min/1.73 m2 [facility] DEPARTMENT OF PATHOLOGY AND GENOMIC MEDICINE GFR Af Amer Comment: mL/min/1.73 m2 [facility] DEPARTMENT OF Chronic kidney disease: <60 PATHOLOGY [...] Americans. Specimen Plasma specimen Performing Organization Address City/[facility]/[place] [address] PATHOLOGY AND [facility] * B natriuretic peptide (10/19/2017 10:00 AM OUTREACH TEAM MEMBER) Only the most recent of 6 results within the time period is included. BNP (H) 0 - 100 pg/mL [facility] PATHOLOGY AND [facility] MEDICINE Specimen Blood Performing Organization Address [facility] [place] [address] PATHOLOGY [facility] * Magnesium level (10/19/2017 10:00 AM OUTREACH TEAM MEMBER) Only the most recent of 8 results within the time period is included. Magnesium 1.6 - 2.6 mg/dL [facility] OF PATHOLOGY AND [facility] MEDICINE Specimen Plasma specimen Performing Organization Address City/[facility] [place] [address] PATHOLOGY AND [facility] * Basic metabolic panel (10/19/2017 10:00 AM OUTREACH TEAM MEMBER) Only the most recent of 18 results within the time period is included. Sodium 135 - 148 mEq/L [facility] DEPARTMENT OF PATHOLOGY AND GENOMIC MEDICINE Potassium 3.5 - 5.0 mEq/L [facility] DEPARTMENT OF PATHOLOGY AND GENOMIC MEDICINE Chloride 98 - 112 mEq/L [facility] DEPARTMENT OF PATHOLOGY AND GENOMIC MEDICINE CO2 (H) 24 - 31 mEq/L [facility] DEPARTMENT OF PATHOLOGY AND GENOMIC MEDICINE Anion gap Comment: 7 - 15 mEq/L [facility] DEPARTMENT OF Starting from January PATHOLOGY AND , anion gap calculation GENOMIC MEDICINE no longer incorporates potassium. Please note the change. BUN 6 - 20 mg/dL [facility] DEPARTMENT OF PATHOLOGY AND GENOMIC MEDICINE Creatinine 0.7 - 1.2 mg/dL [facility] DEPARTMENT OF PATHOLOGY AND GENOMIC MEDICINE Glucose (H) 65 - 99 mg/dL [facility] DEPARTMENT OF PATHOLOGY AND GENOMIC MEDICINE Calcium 8.3 - 10.2 mg/dL [facility] DEPARTMENT OF PATHOLOGY AND GENOMIC MEDICINE Specimen Plasma specimen Performing Organization Address City/[facility] Phone Number [facility] DEPARTMENT OF [address] [place] [address] PATHOLOGY AND GENOMIC MEDICINE * XR Chest 1 Vw Portable (10/15/2017 3:49 PM OUTREACH TEAM MEMBER) Only the most recent of 5 results [...] are unchanged. Cardiac pacer is again seen. [facility]-[id number] Procedure Note Hm Interface, Radiology Results Incoming - 10/15/2017 3:59 PM OUTREACH TEAM MEMBER Examination: XR CHEST 1 VW PORTABLE Clinical history: "Pleural Effusions" Comparison: 10/04/2017 IMPRESSION: There are no new alveolar opacities within either lung. Bibasilar opacities consistent with atelectasis versus small infiltrates appear unchanged. No pneumothoraces are identified. The cardiomediastinal silhouette is unchanged. The bones of the chest are unchanged. Cardiac pacer is again seen. [facility]-[id number] Performing Organization Address City/[facility]/Zipcode Phone Number [facility] [address] [place] [address] * POC glucose (10/15/2017 11:38 AM OUTREACH TEAM MEMBER) Only the most recent of 67 results within the time period is included. POC glucose (H) 65 - 99 mg/dL [facility] DEPARTMENT OF Comment: PATHOLOGY AND H Notified RN GENOMIC MEDICINE Meter ID: [id number] Proj Mgr: Gorge Hoffmann Performing Organization Address City/State/Zipcode Phone Number [facility] OF [address] [place] [address] PATHOLOGY AND GENOMIC MEDICINE * CBC with platelet and differential (10/14/2017 5:00 AM OUTREACH TEAM MEMBER) Only the most recent of 13 results within the time period is included. WBC 4.50 - 11.00 k/uL [facility] DEPARTMENT OF PATHOLOGY AND GENOMIC MEDICINE RBC (L) 4.40 - 6.00 m/uL [facility] DEPARTMENT OF PATHOLOGY AND GENOMIC MEDICINE HGB (L) 14.0 - 18.0 g/dL [facility] DEPARTMENT OF PATHOLOGY AND GENOMIC MEDICINE HCT (L) 41.0 - 51.0 % [facility] DEPARTMENT OF PATHOLOGY AND GENOMIC MEDICINE MCV 82.0 - 100.0 fL [facility] DEPARTMENT OF PATHOLOGY AND GENOMIC MEDICINE MCH (L) 27.0 - 34.0 pg [facility] DEPARTMENT OF PATHOLOGY AND GENOMIC MEDICINE MCHC (L) 31.0 - 37.0 g/dL [facility] DEPARTMENT OF PATHOLOGY AND GENOMIC MEDICINE RDW - SD 37.0 - 55.0 fL [facility] DEPARTMENT OF PATHOLOGY AND GENOMIC MEDICINE MPV 8.8 - 13.2 fL [facility] DEPARTMENT OF PATHOLOGY AND GENOMIC MEDICINE Platelet count 150 - 400 k/uL [facility] DEPARTMENT OF PATHOLOGY AND GENOMIC MEDICINE Nucleated RBC /100 WBC [facility] DEPARTMENT OF PATHOLOGY AND GENOMIC MEDICINE Neutrophils 39.0 - 69.0 % [facility] DEPARTMENT OF PATHOLOGY AND GENOMIC MEDICINE Lymphocytes (L) 25.0 - 45.0 % [facility] DEPARTMENT OF PATHOLOGY AND GENOMIC MEDICINE Monocytes (H) 0.0 - 10.0 % [facility] DEPARTMENT OF PATHOLOGY AND GENOMIC MEDICINE Eosinophils 0.0 - 5.0 % [facility] DEPARTMENT OF PATHOLOGY AND GENOMIC MEDICINE Basophils 0.0 - 1.0 % [facility] DEPARTMENT OF PATHOLOGY AND GENOMIC MEDICINE Immature granulocytes (H)Comment: "Immature 0.0 - 1.0 % [facility] DEPARTMENT OF granulocytes" (promyelocytes, PATHOLOGY AND myelocytes, metamyelocytes) [facility] Specimen Blood Performing Organization Address City/State/Zipcode Phone Number [address] [address] PATHOLOGY AND [facility] MEDICINE * CT Chest Wo Contrast (10/10/2017 10:22 PM OUTREACH TEAM MEMBER) Narrative Performed At Examination:CT CHEST WO CONTRAST [...] the left lingular and bilateral lower lobes. [facility]-[id number] Procedure Note [facility], Radiology Results Incoming - 10/10/2017 10:53 PM OUTREACH TEAM MEMBER Examination: CT CHEST WO CONTRAST Clinical History: [...] the left lingular and bilateral lower lobes. [facility]-[id number] Performing Organization Address City/State/Zipcode Phone Number [facility] [address] [place] [address] * Potassium level (10/10/2017 2:15 PM OUTREACH TEAM MEMBER) Potassium 3.5 - 5.0 mEq/L [facility] DEPARTMENT OF PATHOLOGY AND GENOMIC MEDICINE Specimen Plasma specimen Performing Organization Address City/[facility]/Zipcode Phone Number [facility] DEPARTMENT OF [address] [place] [phone] PATHOLOGY AND GENOMIC MEDICINE * NM Lung Ventilation Perfusion (10/08/2017 9:48 AM OUTREACH TEAM MEMBER) Narrative Performed At PROCEDURE:VA LUNG VENTILATION PERFUSION [facility] INDICATION:Evaluate for chronic PE. COMPARISON:Portable [...] be excluded based on this study, however. [facility]-[id number] Procedure Note Interface, Radiology Results Incoming - 10/08/2017 9:59 AM OUTREACH TEAM MEMBER PROCEDURE: NM LUNG VENTILATION PERFUSION INDICATION: Evaluate [...] be excluded based on this study, however. [facility]-[id number] Performing Organization Address City/[facility]/[place] [address] * Smear review (10/07/2017 4:15 AM OUTREACH TEAM MEMBER) Platelet slide review [facility] DEPARTMENT OF PATHOLOGY AND GENOMIC MEDICINE Enlarged platelets (A) [facility] DEPARTMENT OF PATHOLOGY AND GENOMIC MEDICINE Performing Organization Address [facility] [place] [address] PATHOLOGY AND [facility] MEDICINE * Urinalysis screen and microscopy, with reflex to culture (10/06/2017 5:40 PM OUTREACH TEAM MEMBER) Specimen site [facility] DEPARTMENT OF PATHOLOGY AND GENOMIC MEDICINE Color, UA [facility] DEPARTMENT OF PATHOLOGY AND GENOMIC MEDICINE Appearance, UA [facility] DEPARTMENT OF PATHOLOGY AND GENOMIC MEDICINE Specific gravity, UA 1.001 - 1.035 [facility] DEPARTMENT OF PATHOLOGY AND GENOMIC MEDICINE pH, UA 5.0 - 8.5 [facility] DEPARTMENT OF PATHOLOGY AND GENOMIC MEDICINE Protein, UA Negative [facility] DEPARTMENT OF PATHOLOGY AND GENOMIC MEDICINE Glucose, UA Negative [facility] DEPARTMENT OF PATHOLOGY AND GENOMIC MEDICINE Ketones, UA Negative [facility] DEPARTMENT OF PATHOLOGY AND GENOMIC MEDICINE Bilirubin, UA Negative [facility] DEPARTMENT OF PATHOLOGY AND GENOMIC MEDICINE Blood, UA Negative [facility] DEPARTMENT OF PATHOLOGY AND GENOMIC MEDICINE Nitrite, UA Negative [facility] DEPARTMENT OF PATHOLOGY AND GENOMIC MEDICINE Urobilinogen, UA <2.0 [facility] DEPARTMENT OF PATHOLOGY AND GENOMIC MEDICINE Leukocyte esterase, UA Negative [facility] DEPARTMENT OF PATHOLOGY AND GENOMIC MEDICINE Epithelial cells, UA /HPF [facility] DEPARTMENT OF PATHOLOGY AND GENOMIC MEDICINE WBC, UA 0 - 1 /HPF [facility] DEPARTMENT OF PATHOLOGY AND GENOMIC MEDICINE RBC, UA (H) 0 - 1 /HPF [facility] DEPARTMENT OF PATHOLOGY AND GENOMIC MEDICINE Bacteria, UA None seen [facility] DEPARTMENT OF PATHOLOGY AND GENOMIC MEDICINE Yeast, UA [facility] DEPARTMENT OF PATHOLOGY AND GENOMIC MEDICINE Yeast with pseudohyphae, [facility] DEPARTMENT [facility] PATHOLOGY AND GENOMIC MEDICINE Hyaline casts, UA /LPF [facility] DEPARTMENT OF PATHOLOGY AND GENOMIC MEDICINE Specimen Urine Performing Organization Address City/[facility] Phone Number [place] [phone] PATHOLOGY AND GENOMIC MEDICINE * Urine culture (10/06/2017 5:40 PM OUT[employer] TE[employer]BER) Urine culture Comment: Bacteriuria screen [facility] DEPARTMENT OF negative. PATHOLOGY AND GENOMIC MEDICINE Performing Organization Address City/[place] [facility] Phone Number [facility] DEPARTMENT OF [address] [place] [address] PATHOLOGY AND GENOMIC MEDICINE * Blood culture, aerobic & anaerobic (10/06/2017 2:00 PM OUTREACH TEAM MEMBER) Only the most recent of 2 results within the time period is included. Blood culture isolate Comment: [facility] DEPARTMENT OF Specimen Information PATHOLOGY AND Specimen Source: Blood GENOMIC MEDICINE Specimen Site: Forearm, left Specimen Blood - Forearm, left Performing Organization Address City/[facility]/Zipcode Phone Number [facility] DEPARTMENT OF [address] [place] [address] PATHOLOGY AND GENOMIC MEDICINE * ECG 12 lead (10/06/2017 12:25 PM OUTREACH TEAM MEMBER) Only the most recent of 3 results within the time period is included. Ventricular rate [facility] MUSE Atrial rate [facility] MUSE AR interval [facility] MUSE QRSD interval [facility] MUSE QT interval [facility] QTC interval [facility] P axis 1 [facility] QRS axis 1 [facility] M[facility] T wave axis [facility] MUSE EKG impression [facility] MUSE Performing Organization Address 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 Stat.:Inpatient Room:A938 Study Status:Final Echo Event ID:[id number] Order ID:[id number] Reason for Study:Myocardial Ischemia / Infarction - acute ches pain with suspected [place] and nondiagnostic ECG with a resting ECHO [...] not well seen. MEASUREMENTS: 2D Parasternal Long [place] Ao An2.2 cmLVPWd1.5 cm LVOT 2.4 cmLA Ds3.9 cm LVIDd6 cmIndex2.5 cm/m Ao Rtd 3.5 cm Index1.5 cm/m LVIDs4.7 cm LV Ucrl199.8 g(122-174) LV%fs 22 % LVM Omrwg379.8 g/m2 IVSd 1.6 cmRWT0.5 Signed 10/04/2017 05:34 PM Shania Mustafa M.D. Procedure Note Interface, Radiology Results In - 10/04/2017 5:34 PM OUTREACH TEAM MEMBER Echocardiography Report [address] [place] [address] Pat.Name: SAM ISAAC.ID: [id number] .Date: 10/04/2017 Refer.MD: NORIS PRIDE MD Exam Time: 4:59:00 PM Study Type:Routine Echo Height: 70in Weight: 272lb BSA: 2.38 m2 Age: 2 1960,56Y Sex: MALE BP: 125/66 HR: 77 bpm Sonogrphr: Kaycee Ascencio RUST Pat. Stat.:Inpatient Room: [facility] Study Status:Final Echo Event ID:[id number] Order ID: [id number] Reason for Study:Myocardial Ischemia / Infarction - acute ches pain with suspected [place] and nondiagnostic ECG with a resting ECHO [...] not well seen. MEASUREMENTS: 2D Parasternal Long [place] Ao An 2.2 cm LVPWd 1.5 cm LVOT 2.4 cm LA Ds 3.9 cm LVIDd 6 cm Index 2.5 cm/m Ao Rtd 3.5 cm Index 1.5 cm/m LVIDs 4.7 cm LV Mass 470.8 g (122-174) LV%fs 22 % LVM Index 197.8 g/m2 IVSd 1.6 cm RWT 0.5 Signed 10/04/2017 05:34 PM Shania Mustafa M.D. Performing Organization Address [facility]ter Phone Number [facility] [address] [place] [address] * Troponin (10/04/2017 2:22 PM OUTREACH TEAM MEMBER) Only the most recent of 4 results within the time period is included. Troponin Comment: 0.00 - 0.30 ng/mL [facility] DEPARTMENT OF 0.30 - 1.49 PATHOLOGY AND ng/mlMay OhmData indicate increased risk of acute coronary syndrome. >=1.5 ng/ml Consistent with acute myocardial infarction. The diagnostic value of a single normal or non-diagnostic result is questionable.Serial samples at 2-6 hour intervals are required to rule out acute myocardial injury. Specimen Plasma specimen Performing Organization Address [facility]/Forter Phone Number [facility] DEPARTMENT OF [address] [place] [address] PATHOLOGY AND [employer] MEDICINE * Partial thromboplastin time, activated (10/04/2017 2:22 PM OUTREACH TEAM MEMBER) Only the most recent of 2 results within the time period is included. PTT Comment: 23.0 - 36.0 sec [facility] DEPARTMENT OF PTT therapeutic range for PATHOLOGY AND unfractionated heparin is OhmData 61.0-112.0 seconds which corresponds to Anti-Xa 0.3-0.7 U/ml. Specimen Blood Performing Organization Address [facility]/Zipcode Phone Number [facility] DEPARTMENT OF [address] [place] [address] PATHOLOGY AND GENOMIC MEDICINE * Prothrombin time with INR (10/04/2017 2:22 PM OUTREACH TEAM MEMBER) Only the most recent of 3 results within the time period is included. Prothrombin time 12.0 - 15.0 sec [facility] DEPARTMENT OF PATHOLOGY AND GENOMIC MEDICINE INR Comment: [facility] DEPARTMENT OF The International Normalized PATHOLOGY AND Ratio (INR) is a therapeutic GENOMIC MEDICINE monitoring tool for patients who are stable on oral anticoagulant therapy. An INR of 2.0-3.0 is suggested for deep vein thrombosis/pulmonary embolism. Specimen Blood Performing Organization Address [facility] [place] [address] PATHOLOGY AND [facility] MEDICINE * Phosphorus level (10/04/2017 2:22 PM OUTREACH TEAM MEMBER) Only the most recent of 2 results within the time period is included. Phosphorus (L) 2.4 - 4.5 mg/dL [facility] DEPARTMENT OF PATHOLOGY AND GENOMIC MEDICINE Specimen Plasma specimen Performing Organization Address [facility] Phone Number [address] [address] PATHOLOGY AND [facility] MEDICINE * ECG Pre/Post Op-Tomorrow (10/04/2017 11:53 AM OUTREACH TEAM MEMBER) Ventricular rate [facility] MUSE Atrial rate [facility] MUSE AR interval [facility] MUSE QRSD interval [facility] MUSE QT interval [facility] QTC interval [facility] M[facility] P axis 1 [facility] MUSE QRS axis 1 [facility] MUSE T wave axis [facility] MUSE EKG impression [facility] MUSE Performing Organization Address [facility] [place] Phone Number [facility] MUSE [address] [place] [address] * Cv electrophysiology procedure (10/03/2017 11:27 AM OUTREACH TEAM MEMBER) Narrative Performed At [facility] TITLE OF PROCEDURE: [...] a scalpel, cautery, and blunt dissection.Using the bigv-vvm-lbem technique and an introducer sheath, a defibrillation [...] right ventricular apical defibrillation lead is a [employer] Endotak Oxford-G, model 0296, serial #[id number].Measured R-wave 10.1 mV, pacing threshold 0.8 V, current 0.8 mA, impedance 982 ohms. 2.The defibrillator is a [employer] Dynagen EL ICD model D150, serial #[id number]. 3.Ventricular fibrillation was induced and the patient [...] Pride. Performing Organization Address City/State/Zipcode Phone Number [facility] [address] [place] [address] * Pv duplex venous upper extremity (10/02/2017 5:46 PM OUTREACH TEAM MEMBER) Narrative Performed At [facility] Vascular Ultrasound Laboratory Lower Extremity Venous Report [address] [place] [address] Pat.Name:Beatris ISAAC.ID:[id number] .Date: 10/02/2017 Refer.MD:NORIS NEUMANN MD Exam Time: 5:20:00 PMStudy Type:LE Venous DOBAge:1960,56YSex: MALE Sonogrphr: [place]ION [place], SAVANNA Pat. Stat.:Inpatient Room:[address] TapeVol: FORTUNATO, CPT - 4: [address] Echo Event ID:[id number] Order ID:[id number] Reason for Study:Evaluate for DVT. History of [...] Radiology Results In - 10/02/2017 6:34 PM [facility] Vascular Ultrasound Laboratory Lower Extremity Venous Report [address] [place] [address] Pat.Name: SAM ISAAC.ID: [id number] St.Date: 10/02/2017 Refer.MD: NORIS NEUMANN MD Exam Time: 5:20:00 PM Study Type:LE Venous Age: 2 1960,56Y Sex: MALE Sonogrphr: [place]ION [place], SAVANNA Pat. Stat.:Inpatient Room: [place] [address] A Tape Vol: JM, CPT - 4: 48159 Echo Event ID:[id number] Order ID: [id number] Reason for Study:Evaluate for DVT. History of [...] VI Performing Organization Address City/State/Zipcode Phone Number [facility] [address] [place] [address] * Echocardiogram complete w contrast and 3D if needed (10/02/2017 4:21 PM OUTREACH TEAM MEMBER) Narrative Performed At [facility] Echocardiography Report [address] [place] [id number] Pat.Name:Beatris ISAAC.ID:[id number] .Date: 10/02/2017 Refer.MD:NORIS NEUMANN MD Exam Time: 4:15:00 PMStudy Type:Routine Echo Height:70inWeight:280lb BSA: 2.41 m2 DOBAge:1960,56Y Sex: MALEBP:137/72 HR:73 bpmSonogrphr: Kaycee Ascencio, RUST Pat. Stat.:Inpatient Room:[facility] Study Status:Final Echo Event ID:[id number] Order ID:[id number] Reason for Study:HF - Re-eval of known [...] RAPof 10 mmHg. MEASUREMENTS: 2D Parasternal Long [place] LVOT 2.2 cmLA Ds4.4 cm LVIDd6.6 cmIndex2.7 cm/m Ao An2.4 cm LVIDs5.8 cmAo Rtd 3 cm Index1.3 cm/m LV%fs 12.1 % LV Nesz295.4 g(122-174) IVSd 1.4 cmLVM Aqvpt479.7 g/m2 LVPWd1.4 cmRWT0.4 LA Sng Plane LA [...] Radiology Results In - 10/02/2017 6:55 PM OUTREACH TEAM MEMBER Echocardiography Report [address] [place] [address] Pat.Name: SAM ISAAC.ID: [id number] .Date: 10/02/2017 Refer.MD: NORIS NEUMANN MD Exam Time: 4:15:00 PM Study Type:Routine Echo Height: 70in Weight: 280lb BSA: 2.41 m2 Age: 2 1960,56Y Sex: MALE BP: 137/72 HR: 73 bpm Sonogrphr: Kaycee Ascencio RDCS Pat. Stat.:Inpatient Room: [facility] Study Status:Final Echo Event ID:[id number] Order ID: [id number] Reason for Study:HF - Re-eval of known [...] of 10 mmHg. MEASUREMENTS: 2D Parasternal Long [place] LVOT 2.2 cm LA Ds 4.4 cm [...] PM Jaspal Power M.D. Performing Organization Address [facility] Phone Number [facility] [address] [place] [address] * Arterial blood gas (10/02/2017 7:36 AM OUTREACH TEAM MEMBER) Only the most recent of 6 results within the time period is included. pH, arterial 7.35 - 7.45 [facility] DEPARTMENT OF PATHOLOGY AND GENOMIC MEDICINE pCO2, arterial (H) 35 - 45 mmHg [facility] DEPARTMENT OF PATHOLOGY AND GENOMIC MEDICINE pO2, arterial (H) 80 - 90 mmHg [facility] DEPARTMENT OF PATHOLOGY AND GENOMIC MEDICINE Bicarbonate, arterial (H) 21.0 - 28.0 mmol/L [facility] DEPARTMENT OF PATHOLOGY AND GENOMIC MEDICINE Base excess, arterial (H) -2 - 2 mEq/L [facility] DEPARTMENT OF PATHOLOGY AND GENOMIC MEDICINE O2 saturation, arterial 95 - 100 % [facility] DEPARTMENT OF PATHOLOGY AND GENOMIC MEDICINE Specimen Blood Performing Organization Address [facility] Phone Number [facility] DEPARTMENT OF [address] [place] [address] PATHOLOGY AND GENOMIC MEDICINE * Urine drugs of abuse screen (09/30/2017 4:00 PM OUTREACH TEAM MEMBER) Amphetamine screen, urine [facility] DEPARTMENT OF PATHOLOGY AND GENOMIC MEDICINE Barbiturate screen, urine [facility] DEPARTMENT OF PATHOLOGY AND GENOMIC MEDICINE Benzodiazepine screen, [facility] DEPARTMENT OF urine PATHOLOGY AND GENOMIC MEDICINE Cannabinoid screen, urine [facility] DEPARTMENT OF PATHOLOGY AND GENOMIC MEDICINE Cocaine screen, urine [facility] DEPARTMENT OF PATHOLOGY AND GENOMIC MEDICINE Methadone metabolite [facility] DEPARTMENT OF (EDDP), urine PATHOLOGY AND GENOMIC MEDICINE Opiates screen, urine [facility] DEPARTMENT OF PATHOLOGY AND GENOMIC MEDICINE Oxycodone screen, urine [facility] DEPARTMENT OF PATHOLOGY AND GENOMIC MEDICINE Phencyclidine screen, [facility] DEPARTMENT OF urine PATHOLOGY AND GENOMIC MEDICINE Tricyclic screen, urine Comment: [facility] DEPARTMENT OF Drug screen minimum PATHOLOGY AND [...] Urine Performing Organization Address City/State/Zipcode Phone Number [facility] DEPARTMENT [address] [address] PATHOLOGY AND GENOMIC MEDICINE * Urinalysis, automated with microscopy (09/30/2017 4:00 PM OUTREACH TEAM MEMBER) Color, [facility] DEPARTMENT OF PATHOLOGY AND GENOMIC MEDICINE Appearance, [facility] DEPARTMENT OF PATHOLOGY AND GENOMIC MEDICINE Specific gravity, UA 1.001 - 1.035 [facility] DEPARTMENT OF PATHOLOGY AND GENOMIC MEDICINE pH, UA 5.0 - 8.5 [facility] DEPARTMENT OF PATHOLOGY AND GENOMIC MEDICINE Protein, UA Negative [facility] DEPARTMENT OF PATHOLOGY AND GENOMIC MEDICINE Glucose, UA Negative [facility] DEPARTMENT OF PATHOLOGY AND GENOMIC MEDICINE Ketones, UA Negative [facility] DEPARTMENT OF PATHOLOGY AND GENOMIC MEDICINE Bilirubin, UA Negative [facility] DEPARTMENT OF PATHOLOGY AND GENOMIC MEDICINE Blood, UA Negative [facility] DEPARTMENT OF PATHOLOGY AND GENOMIC MEDICINE Nitrite, UA Negative [facility] DEPARTMENT OF PATHOLOGY AND GENOMIC MEDICINE Urobilinogen, UA <2.0 [facility] DEPARTMENT OF PATHOLOGY AND GENOMIC MEDICINE Leukocyte esterase, UA Negative [facility] DEPARTMENT OF PATHOLOGY AND GENOMIC MEDICINE Epithelial cells, UA /HPF [facility] DEPARTMENT OF PATHOLOGY AND GENOMIC MEDICINE WBC, UA 0 - 1 /HPF [facility] DEPARTMENT OF PATHOLOGY AND GENOMIC MEDICINE RBC, UA 0 - 1 /HPF [facility] DEPARTMENT OF PATHOLOGY AND GENOMIC MEDICINE Bacteria, UA None seen [facility] DEPARTMENT OF PATHOLOGY AND GENOMIC MEDICINE Hyaline casts, UA /LPF [facility] DEPARTMENT OF PATHOLOGY AND GENOMIC MEDICINE Yeast, UA [facility] DEPARTMENT OF PATHOLOGY AND GENOMIC MEDICINE Yeast with pseudohyphae, [facility] DEPARTMENT UA PATHOLOGY AND GENOMIC MEDICINE Specimen Urine Performing Organization Address City/[facility]/Zipcode Phone Number [facility] DEPARTMENT [address] [address] PATHOLOGY AND GENOMIC MEDICINE * Respiratory pathogen panel (09/30/2017 3:22 PM OUTREACH TEAM MEMBER) Respiratory pathogen Comment: [facility] DEPARTMENT OF panel Specimen Information PATHOLOGY AND Specimen Source: [facility] Specimen Site: Not specified Specimen Nares - Not specified Performing Organization Address City/[facility]/Zipcode Phone Number [facility] DEPARTMENT [place] [phone] PATHOLOGY AND GENOMIC MEDICINE * Hemoglobin A1c (09/30/2017 1:17 PM OUTREACH TEAM MEMBER) Hemoglobin A1C (H) 4.0 - 5.6 % [facility] DEPARTMENT OF Comment: PATHOLOGY AND HbA1c cutoffs [...] Blood Performing Organization Address City/State/Zipcode Phone Number [facility] DEPARTMENT OF [address] [place] [address] PATHOLOGY AND GENOMIC MEDICINE * CRITICAL CARE (09/30/2017 12:25 AM OUTREACH TEAM MEMBER) Narrative Performed At Jacek Fuentes DO 09/30/2017 12:25 AM Critical Care Performed by: GINA NESS Authorized by: JACEK FUENTES Critical care provider statement: Critical care time (minutes):35 Critical care time was exclusive of:Teaching time and separately billable procedures and treating other patients (hypertensive emergency) Critical care was necessary to treat or prevent imminent or life-threatening deterioration of the following conditions:Cardiac failure, circulatory failure, [employer] failure or compromise, dehydration, hepatic failure, metabolic [...] Creatine kinase, total (CPK) (09/29/2017 9:56 PM OUTREACH TEAM MEMBER) Creatine kinase (H) 39 - 308 U/L [facility] DEPARTMENT OF PATHOLOGY AND GENOMIC MEDICINE Specimen Plasma specimen Performing Organization Address City/State/Zipcode Phone Number [facility] [address] [place] [address] PATHOLOGY AND GENOMIC MEDICINE * Comprehensive metabolic panel (09/29/2017 9:56 PM OUTREACH TEAM MEMBER) Sodium 135 - 148 mEq/L [facility] DEPARTMENT OF PATHOLOGY AND GENOMIC MEDICINE Potassium 3.5 - 5.0 mEq/L [facility] DEPARTMENT OF PATHOLOGY AND GENOMIC MEDICINE Chloride 98 - 112 mEq/L [facility] DEPARTMENT OF PATHOLOGY AND GENOMIC MEDICINE CO2 (H) 24 - 31 mEq/L [facility] DEPARTMENT OF PATHOLOGY AND GENOMIC MEDICINE Anion gap Comment: 7 - 15 mEq/L [facility] DEPARTMENT OF Starting from January PATHOLOGY AND , anion gap calculation GENOMIC MEDICINE no longer incorporates potassium. Please note the change. BUN 6 - 20 mg/dL [facility] DEPARTMENT OF PATHOLOGY AND GENOMIC MEDICINE Creatinine 0.7 - 1.2 mg/dL [facility] DEPARTMENT OF PATHOLOGY AND GENOMIC MEDICINE Glucose (H) 65 - 99 mg/dL [facility] DEPARTMENT OF PATHOLOGY AND GENOMIC MEDICINE Calcium 8.3 - 10.2 mg/dL [facility] DEPARTMENT OF PATHOLOGY AND GENOMIC MEDICINE Protein Comment: 6.3 - 8.3 g/dL [facility] DEPARTMENT OF PATHOLOGY AND 4.6-7.0 g/dL GENOMIC MEDICINE 1 week 4.4-7.6 g/dL 7 months-1year 5.1-7.3 g/dL 1-2 years5.6-7 .5 g/dL >3 years6.0-8 .0 g/dL 18-150 6.3-8.3 g/dL Albumin 3.5 - 5.0 g/dL [facility] DEPARTMENT OF PATHOLOGY AND GENOMIC MEDICINE A/G ratio 0.7 - 3.8 [facility] DEPARTMENT OF PATHOLOGY AND GENOMIC MEDICINE Alkaline phosphatase 40 - 129 U/L [facility] DEPARTMENT OF PATHOLOGY AND GENOMIC MEDICINE AST 10 - 50 U/L [facility] DEPARTMENT OF PATHOLOGY AND GENOMIC MEDICINE ALT 5 - 50 U/L [facility] DEPARTMENT OF PATHOLOGY AND GENOMIC MEDICINE Total bilirubin 0.0 - 1.2 mg/dL [facility] DEPARTMENT OF PATHOLOGY AND GENOMIC MEDICINE Specimen Plasma specimen Performing Organization Address City/State/Zipcode Phone Number [facility] OF [address] [place] [address] PATHOLOGY AND GENOMIC MEDICINE after 09/14/2017 Insurance Payer Benefit Subscriber ID Type Phone Address Plan / Group [employer] MEDICAID [employer] xxxxxxxxx HMO COMM STAR+ ALEJANDRA Advance Directives Patient has advance care planning documents, and code status on file. For more i nformation, please contact: Yg Chandra [address] [place] [address] Date Inactivated Comments Code Status Date Activated 01/24/2017 5:07 PM Full Code 01/23/2017 2:32 AM Code Status decision reached by: Patient
--- NOTE | 2018-09-15 22:18 | Diagnostic Imaging Report ---
EXAM: CHEST 2 VIEWS, PA and lateral INDICATION: Cough COMPARISON: AP view of the chest March 03, 2018 FINDINGS: LINES/TUBES: Left approach single lead ICD in stable position LUNGS: Stable vascular congestion and mild bibasilar atelectasis PLEURA: No effusions or pneumothorax. HEART AND MEDIASTINUM: Stable cardiomegaly BONES AND SOFT TISSUES: No acute findings. IMPRESSION: Stable cardiomegaly and vascular congestion. No consolidations. Signed by: Dr. Pavithra Mancera M.D. on 09/15/2018 10:15 PM
[2018-09-15] MEDS ORDERED: METHYLPREDNISOLONE SOD SUCC 125 MG/2ML VIAL IV ONE (22:30)
[2018-09-15] MEDS ORDERED: ASPIRIN 81 MG CHEW TAB PO ONE (23:45)
[2018-09-16] MEDS ORDERED: ALBUTEROL/IPRATROPIUM 3 ML NEB ONE (00:13)
[2018-09-16] MEDS ORDERED: ALBUTEROL SULF 0.5% NEB SOLN 20 ML BTL ONE (00:13)
[2018-09-16] MEDS ORDERED: ALBUTEROL/IPRATROPIUM 3 ML NEB NEB ONE (00:15)
[2018-09-16 00:55] VITALS: BP 148/94
[2018-09-16] MEDS ORDERED: medrol dose pak (00:55)
[2018-09-16] MEDS ORDERED: AZITHROMYCIN250 MG PO (00:55)
== END 2018-09-16 01:07 | disposition home or self-care (01) ==
LOC: ER 22:04
DX: R06.00 Dyspnea, unspecified (principal); R05 Cough; J44.1 Chronic obstructive pulmonary disease with (acute) exacerbation; I10 Essential (primary) hypertension; E11.9 Type 2 diabetes mellitus without complications; Z99.81 Dependence on supplemental oxygen; E78.5 Hyperlipidemia, unspecified; F20.9 Schizophrenia, unspecified; Z86.718 Personal history of other venous thrombosis and embolism; F17.210 Nicotine dependence, cigarettes, uncomplicated
CPT/HCPCS: 36415; 71046; 80053; 82550; 82553; 83880; 84484; 85025; 85610; 85730; 93005; 94640 ×2; 99284; J2930

== ENCOUNTER 2019-07-04 20:08 | Emergency (ER) | payer OTHER ==
[~2019-07-04] VITALS: Ht 177.8 cm; Wt 119.7 kg
[~2019-07-04 20:08] MED LIST changes: +AZITHROMYCIN250 MG PO; +medrol dose pak
--- OUTSIDE RECORDS SUMMARY | 2019-07-04 20:11 | XMS REPORT ---
Author Author Admin, [place] Organization [facility] Address [address] [place] [address] Phone Allergies, Adverse Reactions, Alerts Allergy Name Reaction Description Start Date Severity Status Provider No Known Allergies Donato Leon MD Conditions or Problems Problem Name Problem Code Onset Date Status Entry Date Provider Comment Standard Description Annotate Screening for lipid disorder V77.91 Active Donato Leon MD Screening for lipoid disorders Major depression, recurrent, severe 296.33 Active Donato [...] Generic Name NDC Status Provider Patient Instruction GEODON 20 MG ORAL CAPSULE 1 cap By Mouth Every Morning (with food) ZIPRASIDONE HCL 69446345879 Active Donato Leon MD Active GEODON 40 MG ORAL CAPSULE 1 cap By Mouth take at bedtime for psychosis ( take with food) ZIPRASIDONE HCL 37689058920 Active Donato Leon MD Active FUROSEMIDE 40 MG ORAL TABLET TK 1 T PO BID FUROSEMIDE 99086476103 Cristo Leon MD Active MAGNESIUM-OXIDE 400 (241.3 MG) MG ORAL TABLET TK 1 T PO D MAGNESIUM OXIDE 32227776621 Active Donato Leon MD Active TRAMADOL HCL 50 MG ORAL TABLET TK 1-2 TABLETS PO Q 6 HOURS PRN P TRAMADOL HCL 32495301362 Cristo Leon MD Active INSULIN SYRINGE 30G X 03/13" 0.3 ML INSULIN SYRINGE-NEEDLE U-100 56430485766 Cristo Leon MD Active BISACODYL EC 5 MG ORAL TABLET DELAYED RELEASE TAKE 2 TABLETS BY MOUTH DAILY NEEDED. BISACODYL 41782155632 Cristo Leon MD Active CARVEDILOL 6.25 MG ORAL TABLET CARVEDILOL 80853659036 Cristo Leon MD Active ENTRESTO 24-26 MG ORAL TABLET SACUBITRIL-VALSARTAN 90016766286 Active Donato Leon MD Active LANTUS 100 UNIT/ML SUBCUTANEOUS SOLUTION INSULIN GLARGINE 35699406187 Active Donato Leon MD Active PANTOPRAZOLE SODIUM 40 MG ORAL TABLET DELAYED RELEASE PANTOPRAZOLE SODIUM 49279466460 Active Donato Leon MD Active POLYETHYLENE GLYCOL 3350 ORAL PACKET POLYETHYLENE GLYCOL 3350 19821544452 Active Donato Leon MD Active ATORVASTATIN CALCIUM 10 MG ORAL TABLET TK 1 T PO QD ATORVASTATIN CALCIUM 96833443148 Active Donato Leon MD Active LEXAPRO 20 MG ORAL TABLET 1 tab By Mouth Every Morning for anxiety, depression ESCITALOPRAM OXALATE 15163699383 Active Donato Leon MD Active CLONAZEPAM 0.5 MG ORAL TABLET Take 1 tab By Mouth Twice a Day for anxiety CLONAZEPAM 0.5 MG ORAL TABLET 455537 CLONAZEPAM Inactive SEROQUEL 100 MG ORAL TABLET 1 tab By Mouth take at bedtime for mood, psychosis SEROQUEL 100 MG ORAL TABLET 881978 QUETIAPINE FUMARATE Inactive RISPERDAL 1 MG ORAL TABLET 1 tab By Mouth Twice a Day for psychosis RISPERDAL 1 MG ORAL TABLET 515143 RISPERIDONE Inactive SEROQUEL 200 MG ORAL TABLET Take 1 tablet By Mouth at bedtime SEROQUEL 200 MG ORAL TABLET 705346 QUETIAPINE FUMARATE Inactive COGENTIN 1 MG/ML INJECTION SOLUTION take tab By Mouth Twice a Day/Give in tablet form COGENTIN 1 MG/ML INJECTION SOLUTION 315754 BENZTROPINE MESYLATE Inactive SEROQUEL 200 MG ORAL TABLET Take 2 tab at bedtime By Mouth SEROQUEL 200 MG ORAL TABLET 086447 QUETIAPINE FUMARATE Inactive COGENTIN 1 MG/ML INJECTION SOLUTION take 1 tab By Mouth Every Morning COGENTIN 1 MG/ML INJECTION SOLUTION 944888 BENZTROPINE MESYLATE Inactive RISPERDAL 1 MG ORAL TABLET take 1 tab By Mouth Twice a Day RISPERDAL 1 MG ORAL TABLET 688863 RISPERIDONE Inactive SEROQUEL 200 MG ORAL TABLET take 1 tab By Mouth at bedtime SEROQUEL 200 MG ORAL TABLET 464985 QUETIAPINE FUMARATE Inactive DOXEPIN HCL 10 MG ORAL CAPSULE 1 cap morning and night DOXEPIN HCL 10 MG ORAL CAPSULE 1674332 DOXEPIN HCL Inactive TENEX 1 MG ORAL TABLET 0.5 - 1 tab morning and night TENEX 1 MG ORAL TABLET GUANFACINE HCL Inactive LISINOPRIL 20 MG ORAL TABLET 1 tab Every day LISINOPRIL 20 MG ORAL TABLET 861647 LISINOPRIL Inactive RISPERDAL 2 MG ORAL TABLET 1 tab Every at bedtime RISPERDAL 2 MG ORAL TABLET 831264 RISPERIDONE Inactive CLONAZEPAM 0.5 MG ORAL TABLET Take 1 tab By Mouth Twice a Day for anxiety CLONAZEPAM 89899020507 No Longer Active Donato Leon MD Active SEROQUEL 100 MG ORAL TABLET 1 tab By Mouth take at bedtime for mood, psychosis QUETIAPINE FUMARATE 58031030561 No Longer Active Donato Leon MD Active RISPERDAL 1 MG ORAL TABLET 1 tab By Mouth Twice a Day for psychosis RISPERIDONE 44474584190 No Longer Active Donato Leon MD Active SEROQUEL 200 MG ORAL TABLET Take 1 tablet By Mouth at bedtime QUETIAPINE FUMARATE 55024856671 No Longer Active Donato Leon MD Active COGENTIN 1 MG/ML INJECTION SOLUTION take tab By Mouth Twice a Day/Give in tablet form BENZTROPINE MESYLATE 54073235997 No Longer Active Fang Ogunmokun Active SEROQUEL 200 MG ORAL TABLET Take 2 tab at bedtime By Mouth QUETIAPINE FUMARATE 05920419982 No Longer Active Fang [employer]un Active COGENTIN 1 MG/ML INJECTION SOLUTION take 1 tab By Mouth Every Morning BENZTROPINE MESYLATE 38998842694 No Longer Active Fang [employer] Active RISPERDAL 1 MG ORAL TABLET take 1 tab By Mouth Twice a Day RISPERIDONE 69424727115 No Longer Active Fang O[employer]un Active SEROQUEL 200 MG ORAL TABLET take 1 tab By Mouth at bedtime QUETIAPINE FUMARATE 15980902691 No Longer Active Fang Ogunmokun Active DOXEPIN HCL 10 MG ORAL CAPSULE 1 cap morning and night DOXEPIN HCL 49025875796 No Longer Active Anil Irizarry MD Active TENEX 1 MG ORAL TABLET 0.5 - 1 tab morning and night GUANFACINE HCL 75702690229 No Longer Active Anil Irizarry MD Active LISINOPRIL 20 MG ORAL TABLET 1 tab Every day LISINOPRIL 96828577718 No Longer Active Donato Leon MD Active RISPERDAL 2 MG ORAL TABLET 1 tab Every at bedtime RISPERIDONE 03898454375 No Longer Active Anil Irizarry MD Active Vital Signs Date Name Value Unit Range Description blood pressure, diastolic 84 mm[Hg] BP mariee blood pressure, systolic 136 mm[Hg] BP sys height E&M 70 [in_us] Bdy height pulse rate E&M 83 /min Heart rate weight E&M 283.38 [lb_av] Weight Measured blood pressure, diastolic 98 mm[Hg] BP mariee blood pressure, systolic 163 mm[Hg] BP sys height E&M 70 [in_us] Bdy height pulse rate E&M 86 /min Heart rate weight E&M 285.60 [lb_av] Weight Measured blood pressure, diastolic 106 mm[Hg] BP mariee blood pressure, systolic 164 mm[Hg] BP sys height E&M 70 [in_us] Bdy height pulse rate E&M 90 /min Heart rate weight E&M 298.80 [lb_av] Weight Measured blood pressure, diastolic 96 mm[Hg] BP mariee blood pressure, systolic 190 mm[Hg] BP sys height E&M 70 [in_us] Bdy height pulse rate E&M 53 /min Heart rate weight E&M 288.25 [lb_av] Weight Measured Diagnostic Results Date Name Value Unit Range Description Lab Report: CBC With Differential/Platelet, Comp. Metabolic Panel (14), ... - Hematology hematocrit, blood 40.7 % 37.5-51.0 Lab Report: CBC With Differential/Platelet, Comp. Metabolic Panel (14), ... - Chemistry sodium, serum 141 mmol/L 134-144 Lab Report: CBC With Differential/Platelet, Comp. Metabolic Panel (14), ... - Hematology neutrophils as percent of blood leukocytes 70 % Not Estab. basophils as percent of blood leukocytes 0 % Not Estab. Lab Report: CBC With Differential/Platelet, Comp. Metabolic Panel (14), ... - Chemistry very low density lipoproteins 36 mg/dL 5-40 carbon dioxide, venous blood 35 mmol/L 20-29 chloride, serum 95 mmol/L 96-106 triglyceride, serum, fasting 178 mg/dL 0-149 calcium, serum 9.0 mg/dL 8.7-10.2 urea nitrogen, blood 14 mg/dL 6-24 alanine aminotransferase (SGPT), serum 21 U/L 0-44 Lab Report: CBC With Differential/Platelet, Comp. Metabolic Panel (14), ... - Hematology mean corpuscular hemoglobin, RBC 24.3 pg 26.6-33.0 mean corpuscular hemoglobin concentration, RBC 30.5 G/DL % 31.5-35.7 Lab Report: CBC With Differential/Platelet, Comp. Metabolic Panel (14), ... - Chemistry protein, total, serum 6.6 g/dL 6.0-8.5 alkaline phosphatase, serum 84 U/L 39-117 Lab Report: CBC With Differential/Platelet, Comp. Metabolic Panel (14), ... - Hematology erythrocyte (RBC) count 5.11 X10E6/UL 10*6/mm3 4.14-5.80 hemoglobin, blood 12.4 g/dL 13.0-17.7 Lab Report: CBC With Differential/Platelet, Comp. Metabolic Panel (14), ... - Chemistry Absolute Neutrophils 6.3 X10E3/UL 10*3/uL 1.4-7.0 LDL cholesterol, serum 40 mg/dL 0-99 urea nitrogen/creatinine ratio, serum 12 9-20 Lab Report: CBC With Differential/Platelet, Comp. Metabolic Panel (14), ... - Hematology lymphocytes as percent of blood leukocytes 22 % Not Estab. mean corpuscular volume, RBC 80 fL 79-97 Lab Report: CBC With Differential/Platelet, Comp. Metabolic Panel (14), ... - Chemistry HDL cholesterol, serum 49 mg/dL >39 Lab Report: CBC With Differential/Platelet, Comp. Metabolic Panel (14), ... - Genetics/fertility eGFR if 79 mL/min/1.73m2 >59 Lab Report: CBC With Differential/Platelet, Comp. Metabolic Panel (14), ... - Hematology basophil count, absolute 0.0 x10E3/uL 0.0-0.2 monocytes as percent of blood leukocytes 7 % Not Estab. Lab Report: CBC With Differential/Platelet, Comp. Metabolic Panel (14), ... - Chemistry globulin, serum 2.9 1.5-4.5 albumin/globulin ratio, serum 1.3 1.2-2.2 Estimated Glomerular Filtration Rate (calc) 69 mL/min/1.73m2 >59 creatinine, serum 1.18 mg/dL 0.76-1.27 cholesterol, serum 125 mg/dL 912-262 7966/11/29 bilirubin, serum, total <0.2 mg/dL mg/dL 0.0-1.2 Lab Report: CBC With Differential/Platelet, Comp. Metabolic Panel (14), ... - Hematology Eosinophil Absolute Count 0.1 X10E3/UL 10*3/uL 0.0-0.4 eosinophils as percent of blood leukocytes 1 % Not Estab. Lab Report: CBC With Differential/Platelet, Comp. Metabolic Panel (14), ... - Chemistry blood glucose, random 190 mg/dL 65-99 aspartate aminotransferase (SGOT), serum 20 U/L 0-40 Lab Report: CBC With Differential/Platelet, Comp. Metabolic Panel (14), ... - Hematology red blood cell distribution width 14.8 % 12.3-15.4 leukocyte count, blood 9.0 X10E3/UL 10*3/mm3 3.4-10.8 Lab Report: CBC With Differential/Platelet, Comp. Metabolic Panel (14), ... - Chemistry potassium, serum 4.6 mmol/L 3.5-5.2 Lab Report: CBC With Differential/Platelet, Comp. Metabolic Panel (14), ... - Hematology monocyte count, blood, automated 0.6 X10E3/UL 10*3/uL 0.1-0.9 Lab Report: CBC With Differential/Platelet, Comp. Metabolic Panel (14), ... - Chemistry albumin, serum 3.7 g/dL 3.5-5.5 immature granulocytes, percentage of total cells, blood 0 % Not Estab. Lab Report: CBC With Differential/Platelet, Comp. Metabolic Panel (14), ... - Hematology platelet count 145 X10E3/UL 10*3/mm3 299-608 6249/11/29 lymphocyte count, blood, automated 2.0 X10E3/UL 10*3/mm3 0.7-3.1 Encounters Date Encounter Provider Code Facility 09:16:16 IT PROGRAM ENGAGEMENT DIRECTOR Est Patient Exp Problem - 18043 Donato Leon MD CPT-97141 [facility] 09:20:17 IT PROGRAM ENGAGEMENT DIRECTOR Est Patient Exp Problem - 34861 Donato Leon MD CPT-69748 [facility] 09:11:34 IT PROGRAM ENGAGEMENT DIRECTOR Est Patient Detailed - 24406 Donato Leon MD CPT-61845 [facility] 10:21:25 CDT Est Patient Exp Problem - 41830 Donato Leon MD CPT-60617 [facility] 10:57:05 IT PROGRAM ENGAGEMENT DIRECTOR Est Patient Detailed - 03242 Donato Leon MD CPT-85600 [facility] 08:23:34 IT PROGRAM ENGAGEMENT DIRECTOR Est Patient Exp Problem - 28157 Donato Leon MD CPT-01519 [facility] 10:35:14 CDT Est Patient Exp Problem - 55660 Donato Leon MD CPT-50313 [facility] 10:04:33 CDT Est Patient Exp Problem - 35994 Donato Leon MD CPT-85872 [facility] 13:58:12 IT PROGRAM ENGAGEMENT DIRECTOR Est Patient Problem Focus - 18187 Donato Leon MD CPT-56485 [facility] 14:13:13 CDT Est Patient Problem Focus - 03626 Donato Leon MD CPT-91722 [facility] 10:14:44 CDT Est Patient Exp Problem - 24269 Fang Ogunmokun CPT-84348 [facility] 10:09:34 CDT Est Patient Exp Problem - 02190 Fang Ogunmokun CPT-64836 [facility] 14:20:59 IT PROGRAM ENGAGEMENT DIRECTOR Est Patient Exp Problem - 62350 Anil Irizarry MD CPT-83500 [facility] 08:16:43 CDT Est Patient Exp Problem - 27920 Anil Irizarry MD CPT-91818 [facility] 09:05:41 CDT Est Patient Exp Problem - 27902 Anil Irizarry MD CPT-83510 [facility] 09:26:09 IT PROGRAM ENGAGEMENT DIRECTOR Est Patient Exp Problem - 06532 Anil Irizarry MD CPT-43208 [facility] Procedures Code Procedure Name Date Entry Date Standard Description CPT-26624 Psychotherapy 45 (38-52*) min - 61973 (with patient and/or family member) 08:10:50 CDT CPT-26335 Psychotherapy 45 (38-52*) min - 48460 (with patient and/or family member) 21:56:55 CDT CPT-83050 Psychotherapy 45 (38-52*) min - 30276 (with patient and/or family member) 18:23:03 CDT CPT-71465 Psychotherapy 45 (38-52*) min - 26324 (with patient and/or family member) 16:09:41 IT PROGRAM ENGAGEMENT DIRECTOR CPT-25923 Psychotherapy 45 (38-52*) min - 56067 (with patient and/or family member) 17:15:13 IT PROGRAM ENGAGEMENT DIRECTOR CPT-55295 Diagnostic evaluation with medical - 50123 08:26:28 IT PROGRAM ENGAGEMENT DIRECTOR CPT-71793 Psychotherapy 30 (16-37*) min - 78061 (with patient and/or family member) 17:29:25 IT PROGRAM ENGAGEMENT DIRECTOR CPT-07388 Psychotherapy 45 (38-52*) min - 14339 (with patient and/or family member) 22:03:39 CDT CPT-40021 Psychotherapy 45 (38-52*) min - 19249 (with patient and/or family member) 17:20:10 CDT CPT-28026 Psychotherapy 45 (38-52*) min - 93458 (with patient and/or family member) 13:30:09 CDT CPT-02381 Psychotherapy 45 (38-52*) min - 60543 (with patient and/or family member) 21:22:13 CDT CPT-24424 Diagnostic evaluation (no medical) - 22623 16:48:49 CDT
--- OUTSIDE RECORDS SUMMARY | 2019-07-04 20:11 | XMS REPORT | Clinical Summary ---
Author Author [place] [facility] Organization [facility] Address Unknown Phone Unavailable Care Team Providers Care Airways Operations Specialist Name Role Phone Cristino Bryant DO PCP [...] mouth 2 (two) times a day. 10/19/2018 furosemide (LASIX) 40 mg Take 1 tablet 60 tablet 11 tablet (40 mg total) 7 by mouth 2 (two) times a day. 10/19/2018 magnesium oxide (MAG-OX) Take 1 tablet 30 tablet 11 400 mg tablet (400 mg 7 total) by mouth daily. Active Problems Problem Noted Date Sleep-disordered breathing [...] heart failure 12/02/2016 Transient cerebral ischemia 12/01/2016 Encounters Care Team Description Date Type Specialty Ladonna Miles RN Med Refill 12/27/2018 Telephone Cardiology after 07/03/2018 Immunizations Name Administration Dates Next Due FLUCELVAX QUAD PF 08/05/2017 Influenza Trivalent 12/27/2016 Pneumococcal Conjugate 12/27/2016 Family History Medical History Relation Name Comments Heart attack Brother Heart attack Mother Kidney disease Mother Stroke Mother Relation Name Status Comments Brother Mother Social History Date Tobacco Use Types Packs/Day Years Used Current Some Day Smoker Cigarettes 0.5 20 Smokeless Tobacco: Never Used Drinks/Week oz/Week Comments Alcohol Use Previous alcoholic, quit 4 years ago No Sex Assigned at Date Recorded Not on file Industry Job Start Date Occupation Not on file Not on file Not on file Travel End Travel History Travel Start No recent travel history available. 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 Manufactur er 11/29/2021 [id number] / / [id number] [employer] [place] Df4 Tachy Lead - Cardiac N/A: N/A [place] [id number] Pacing SCIENTIFIC Implanted: Qty: 1 on 10/03/2017 by Leads or - CRM Abraham Barreto Jr., MD at [facility] or [employer] s [id number] / [id number] / [id number] Kofi Davila Icd Df4 Vr Defibrilla [place] Implanted: Qty: 1 on 10/03/2017 by tor ICD SCIENTIFIC Abraham Barreto Jr., MD at [facility] Pins In Lumbar [id number] Results Not on fileafter 07/03/2018 Insurance Type Payer Benefit Subscriber ID Effective Phone Address Plan / Dates Group [facility] MEDICAID [facility] xxxxxxxxx [id number] COMM STAR+ resent ALEJANDRA Advance Directives For more information, please contact: [phone] Patient Manufacturing Applications Engineer Explanation Type Date Recorded Advance Directives, 03/05/2017 2:22 PM Living Will and Medical Power of Employment Agency Manager Date Inactivated Comments Code Status Date Activated 01/24/2017 5:07 PM Full Code 01/23/2017 2:32 AM Code Status decision reached by: Patient
--- OUTSIDE RECORDS SUMMARY | 2019-07-04 20:11 | XMS REPORT ---
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 BISACODYL 44871409811 Cristo Leon MD Active CARVEDILOL 6.25 MG ORAL TABLET CARVEDILOL 03082814201 Cristo Leon MD Active ENTRESTO 24-26 MG ORAL TABLET SACUBITRIL-VALSARTAN 35011529683 Cristo Leon MD Active LANTUS 100 UNIT/ML SUBCUTANEOUS SOLUTION INSULIN GLARGINE 03372069692 Cristo Leon MD Active PANTOPRAZOLE SODIUM 40 MG ORAL TABLET DELAYED RELEASE PANTOPRAZOLE SODIUM 91200140726 Cristo Leon MD Active POLYETHYLENE GLYCOL 3350 ORAL PACKET POLYETHYLENE GLYCOL 3350 43868702323 Cristo Leon MD Active ATORVASTATIN CALCIUM 10 MG ORAL TABLET TK 1 T PO QD ATORVASTATIN CALCIUM 59771204051 Active Donato Leon MD Active LEXAPRO 10 MG ORAL TABLET Take 1 tab By Mouth Every Morning for depression ESCITALOPRAM OXALATE 32983052297 Active Donato Leon MD Active SEROQUEL 100 MG ORAL TABLET 1 tab By Mouth take at bedtime for mood, psychosis QUETIAPINE FUMARATE 35869571764 Active Donato Leon MD Active RISPERDAL 1 MG ORAL TABLET 1 tab By Mouth Twice a Day for psychosis RISPERIDONE 75871620413 Active Donato Leon MD Active CLONAZEPAM 0.5 MG ORAL TABLET Take 1 tab By Mouth Twice a Day for anxiety CLONAZEPAM 0.5 MG ORAL TABLET 426538 CLONAZEPAM Inactive SEROQUEL 200 MG ORAL TABLET Take 1 tablet By Mouth at bedtime SEROQUEL 200 MG ORAL TABLET 886256 QUETIAPINE FUMARATE Inactive COGENTIN 1 MG/ML INJECTION SOLUTION take tab By Mouth Twice a Day/Give in tablet form COGENTIN 1 MG/ML INJECTION SOLUTION 374964 BENZTROPINE MESYLATE Inactive SEROQUEL 200 MG ORAL TABLET Take 2 tab at bedtime By Mouth SEROQUEL 200 MG ORAL TABLET 887553 QUETIAPINE FUMARATE Inactive COGENTIN 1 MG/ML INJECTION SOLUTION take 1 tab By Mouth Every Morning COGENTIN 1 MG/ML INJECTION SOLUTION 932294 BENZTROPINE MESYLATE Inactive RISPERDAL 1 MG ORAL TABLET take 1 tab By Mouth Twice a Day RISPERDAL 1 MG ORAL TABLET 283377 RISPERIDONE Inactive SEROQUEL 200 MG ORAL TABLET take 1 tab By Mouth at bedtime SEROQUEL 200 MG ORAL TABLET 329647 QUETIAPINE FUMARATE Inactive DOXEPIN HCL 10 MG ORAL CAPSULE 1 cap morning and night DOXEPIN HCL 10 MG ORAL CAPSULE 9419492 DOXEPIN HCL Inactive TENEX 1 MG ORAL TABLET 0.5 - 1 tab morning and night TENEX 1 MG ORAL TABLET 548242 GUANFACINE HCL Inactive LISINOPRIL 20 MG ORAL TABLET 1 tab Every day LISINOPRIL 20 MG ORAL TABLET 625640 LISINOPRIL Inactive RISPERDAL 2 MG ORAL TABLET 1 tab Every at bedtime RISPERDAL 2 MG ORAL TABLET 037825 RISPERIDONE Inactive CLONAZEPAM 0.5 MG ORAL TABLET Take 1 tab By Mouth Twice a Day for anxiety CLONAZEPAM 24056819368 No Longer Active Donato Leon MD Active SEROQUEL 200 MG ORAL TABLET Take 1 tablet By Mouth at bedtime QUETIAPINE FUMARATE 43957263654 No Longer Active Donato Leon MD Active COGENTIN 1 MG/ML INJECTION SOLUTION take tab By Mouth Twice a Day/Give in tablet form BENZTROPINE MESYLATE 05125527291 No Longer Active Fang O[employer]okun Active SEROQUEL 200 MG ORAL TABLET Take 2 tab at bedtime By Mouth QUETIAPINE FUMARATE 18359086380 No Longer Active Fang [employer]un Active COGENTIN 1 MG/ML INJECTION SOLUTION take 1 tab By Mouth Every Morning BENZTROPINE MESYLATE 01611491984 No Longer Active Fang O[place]okun Active RISPERDAL 1 MG ORAL TABLET take 1 tab By Mouth Twice a Day RISPERIDONE 97628702448 No Longer Active Fang O[employer]un Active SEROQUEL 200 MG ORAL TABLET take 1 tab By Mouth at bedtime QUETIAPINE FUMARATE 44739888577 No Longer Active Fang O[employer]un Active DOXEPIN HCL 10 MG ORAL CAPSULE 1 cap morning and night DOXEPIN HCL 20762184241 No Longer Active Anli Irizarry MD Active TENEX 1 MG ORAL TABLET 0.5 - 1 tab morning and night GUANFACINE HCL 35802976984 No Longer Active Anil Irizarry MD Active LISINOPRIL 20 MG ORAL TABLET 1 tab Every day LISINOPRIL 70208165005 No Longer Active Donato Leon MD Active RISPERDAL 2 MG ORAL TABLET 1 tab Every at bedtime RISPERIDONE 03725482295 No Longer Active Anil Irizarry MD Active Vital Signs Date Name Value Unit Range Description blood pressure, diastolic 93 mm[Hg] BP mariee blood pressure, systolic 143 mm[Hg] BP sys height E&M 70 [in_us] Bdy height pulse rate E&M 83 /min Heart rate weight E&M 290.25 [lb_av] Weight Measured Encounters Date Encounter Provider Code Facility 10:57:05 MEAT BUTCHER Est Patient Detailed - 68144 Donato Leon MD CPT-84310 [facility] 08:23:34 MEAT BUTCHER Est Patient Exp Problem - 06819 Donato Leon MD CPT-27584 [facility] 10:35:14 CDT Est Patient Exp Problem - 39693 Donato Leon MD CPT-10824 [facility] 10:04:33 CDT Est Patient Exp Problem - 85988 Donato Leon MD CPT-88427 [facility] 13:58:12 MEAT BUTCHER Est Patient Problem Focus - 17948 Donato Leon MD CPT-75768 [facility] 14:13:13 CDT Est Patient Problem Focus - 33255 Donato Leon MD CPT-47361 [facility] 10:14:44 CDT Est Patient Exp Problem - 36227 Fang Ogunmokun CPT-61308 [facility] 10:09:34 CDT Est Patient Exp Problem - 66190 Fang Ogunmokun CPT-94895 [facility] 14:20:59 MEAT BUTCHER Est Patient Exp Problem - 56275 Anil Irizarry MD CPT-57085 [facility] 08:16:43 CDT Est Patient Exp Problem - 82418 Anil Irizarry MD CPT-40516 [facility] 09:05:41 CDT Est Patient Exp Problem - 33841 Anil Irizarry MD CPT-85724 [facility] 09:26:09 MEAT BUTCHER Est Patient Exp Problem - 79060 Anil Irizarry MD CPT-37560 [facility] Procedures Code Procedure Name Date Entry Date Standard Description CPT-11278 Psychotherapy 45 (38-52*) min - 18341 (with patient and/or family member) 08:10:50 CDT CPT-06958 Psychotherapy 45 (38-52*) min - 84040 (with patient and/or family member) 21:56:55 CDT CPT-52321 Psychotherapy 45 (38-52*) min - 79435 (with patient and/or family member) 18:23:03 CDT CPT-94802 Psychotherapy 45 (38-52*) min - 05746 (with patient and/or family member) 16:09:41 MEAT BUTCHER CPT-50909 Psychotherapy 45 (38-52*) min - 98169 (with patient and/or family member) 17:15:13 MEAT [employer]CHER CPT-50034 Diagnostic evaluation with medical - 32905 08:26:28 MEAT BUTCHER CPT-61537 Psychotherapy 30 (16-37*) min - 20137 (with patient and/or family member) 17:29:25 ME[employer]CHER CPT-67820 Psychotherapy 45 (38-52*) min - 32487 (with patient and/or family member) 22:03:39 CDT CPT-81966 Psychotherapy 45 (38-52*) min - 98826 (with patient and/or family member) 17:20:10 CDT CPT-25203 Psychotherapy 45 (38-52*) min - 47990 (with patient and/or family member) 13:30:09 CDT CPT-57746 Psychotherapy 45 (38-52*) min - 35021 (with patient and/or family member) 21:22:13 CDT CPT-03711 Diagnostic evaluation (no medical) - 43980 16:48:49 CDT
[2019-07-04] MEDS ORDERED: HYDROCODONE/APAP 10MG-325MG TAB PO ONE (21:00)
--- NOTE | 2019-07-04 21:24 | Diagnostic Imaging Report ---
Left rib multiple views CPT code: 21440 History: Fall Comparison: Chest x-ray 09/15/2018. Findings: The rib structures on the left appear intact. There is no evidence of acute rib fracture or dislocation identified. Single PA view of the chest demonstrates cardiomegaly and AICD lead in the right ventricle. Pulmonary vascular markings are prominent and stable. Retrocardiac airspace disease is redemonstrated suggestive of atelectasis or scarring. No pneumothorax. No large pleural effusions. IMPRESSION: No rib fracture or dislocation. Cardiomegaly and chronic pulmonary vascular prominence. Chronic left basilar atelectasis. Signed by: Dr. Radha Tony MD on 07/04/2019 9:21 PM
--- NOTE | 2019-07-04 21:31 | Diagnostic Imaging Report ---
Left clavicle 2 views. Left shoulder 2 views HISTORY: Fall COMPARISON: Same-day rib series, chest x-ray 09/15/2018 FINDINGS: Bones: Hypertrophy of the distal clavicle with suggestion of a nondisplaced, mildly comminuted fracture. No fractures of the scapula or proximal humerus. No aggressive osseous lesion. Joints: No degenerative changes of the acromioclavicular joint or glenohumeral joint. Soft tissues: The soft tissues appear unremarkable. IMPRESSION: Nondisplaced fracture of the distal clavicle. Signed by: Dr. Radha Tony MD on 07/04/2019 9:28 PM
== END 2019-07-04 22:10 | disposition home or self-care (01) ==
LOC: ER 20:08
DX: M25.512 Pain in left shoulder (principal); S42.025A Nondisplaced fracture of shaft of left clavicle, initial encounter for closed fracture; W18.30XA Fall on same level, unspecified, initial encounter; Y92.008 Other place in unspecified non-institutional (private) residence as the place of occurrence of the external cause; I10 Essential (primary) hypertension; E11.9 Type 2 diabetes mellitus without complications; F20.9 Schizophrenia, unspecified; I51.7 Cardiomegaly; J44.9 Chronic obstructive pulmonary disease, unspecified; B19.20 Unspecified viral hepatitis C without hepatic coma; F41.9 Anxiety disorder, unspecified; Z99.81 Dependence on supplemental oxygen; Z95.810 Presence of automatic (implantable) cardiac defibrillator
CPT/HCPCS: 71101; 99284